=== PATIENT | female | born 1995 | race Two or more races ===

== ENCOUNTER 2021-01-02 09:05 | Outpatient (REF) | payer OTHER, SELFPAY ==
[2021-01-02 11:18] LABS: MANUAL DIFF FLAG NO
[2021-01-02 11:28] LABS: Basophils Percent Auto 0.5 % (0-2); Eosinophils Absolute Auto 0.1 X10*3/uL (0.0-0.4); Hematocrit 42.4 % (37-47); Hemoglobin 13.9 g/dl (12.0-16.0); Imm Gran Abs Auto 0.01 X10*3/uL (0.00-0.03); Imm Gran Pct Auto 0.2 % (0.0-0.4); Lymphocytes Absolute Auto 2.1 X10*3/uL (1.2-4.9); Lymphocytes Percent Auto 36.1 % (20-40); Mean Corpuscular HGB Conc 32.8 g/dl (31.0-35.0); Mean Corpuscular Hemoglobin 29.1 pg (27.0-33.0); Mean Corpuscular Volume 88.9 fL (80-98); Mean Platelet Volume 9.9 fL (9.4-12.3); Monocytes Absolute Auto 0.3 X10*3/uL (0.1-1.2); Monocytes Percent Auto 5.8 % (2-11); Neutrophils Absolute Auto 3.3 X10*3/uL (2.0-8.3); Neutrophils Percent Auto 56.4 % (45-73); Platelet Count 306 X10*3/uL (160-400); Red Blood Count 4.77 X10*6/uL (4.20-5.50); Red Cell Distribution Width 12.2 % (11.0-16.0); White Blood Count 5.9 X10*3/uL (4.8-10.8)
[2021-01-02 12:06] LABS: Alanine Aminotransferase 16 U/L (0-31); Anion Gap 15 (12-20); Aspartate Amino Transferase 17 U/L (5-31); Blood Urea Nitrogen 15 mg/dL (9-16); Calcium 9.3 mg/dL (8.4-10.2); Carbon Dioxide 25 mmol/L (22-29); Chloride 105 mmol/L (96-108); Cholesterol 149 mg/dL; Estimated Glomerular Filt Rate > 60; Glucose Fasting 101 mg/dL (60-99); HDL Cholesterol 45 mg/dL; LDL Cholesterol Calculated 89 mg/dl; Potassium 4.3 mmol/L (3.3-5.1); Sodium 141 mmol/L (135-145); Triglycerides 79 mg/dL
[2021-01-02 12:07] LABS: TSH reflex Free T4 1.63 uIU/mL (0.32-4.0); Vitamin D 25-OH Total 8.5 ng/mL (>30)
== END 2021-01-02 09:06 | disposition home or self-care (01) ==
LOC: HO.HMGCLDS 09:05
PROVIDERS: PCP Internal Medicine; Visit Provider Internal Medicine
DX: Z00.00 Encounter for general adult medical examination without abnormal findings (principal); Z13.31 Encounter for screening for depression; E66.9 Obesity, unspecified; I10 Essential (primary) hypertension
CPT/HCPCS: 36415; 80048; 80061; 82306; 84443; 84450; 84460; 85025

== ENCOUNTER 2021-03-18 19:07 | Emergency (ER) | payer OTHER, SELFPAY ==
--- NOTE | ~2021-03-18 | US_ITS ---
EXAMINATION: US PELVIS CLINICAL INFORMATION: Right lower quadrant pain COMPARISON: None TECHNIQUE: Ultrasound of the pelvis is performed using both transabdominal and transvaginal transducers along with Doppler. Transvaginal imaging is performed due to inadequate visualization transabdominally. FINDINGS: Uterus: The uterus is anteverted and anteflexed measuring 8.7 cm in length, 3.4 cm in AP and 4.4 cm in transverse dimension. Endometrial thickness measures 0.4 cm. No focal lesion is seen. Adnexa: The right ovary measures 2.8 x 1.7 x 2.2 cm and volume 5.5 mL. There are multiple cysts. The largest cyst measures 1.3 x 1.4 x 1.2 cm. There is normal Doppler arterial and venous flow seen to right ovary. The left ovary measures 2.2 x 1.7 x 1.9 cm and volume 3.7 mL. There are multiple anechoic cysts. There is normal arterial and venous flow seen to left ovary on Doppler exam. There is no free fluid in the cul-de-sac. US/US pelvic ovarian doppler IMPRESSION: Unremarkable uterus. Multiple bilateral renal cysts. Normal Doppler flow seen to both ovaries. There is no free fluid in the cul-de-sac
--- NOTE | ~2021-03-18 | US_ITS ---
EXAMINATION: US PELVIS CLINICAL INFORMATION: Right lower quadrant pain COMPARISON: None TECHNIQUE: Ultrasound of the pelvis is performed using both transabdominal and transvaginal transducers along with Doppler. Transvaginal imaging is performed due to inadequate visualization transabdominally. FINDINGS: Uterus: The uterus is anteverted and anteflexed measuring 8.7 cm in length, 3.4 cm in AP and 4.4 cm in transverse dimension. Endometrial thickness measures 0.4 cm. No focal lesion is seen. Adnexa: The right ovary measures 2.8 x 1.7 x 2.2 cm and volume 5.5 mL. There are multiple cysts. The largest cyst measures 1.3 x 1.4 x 1.2 cm. There is normal Doppler arterial and venous flow seen to right ovary. The left ovary measures 2.2 x 1.7 x 1.9 cm and volume 3.7 mL. There are multiple anechoic cysts. There is normal arterial and venous flow seen to left ovary on Doppler exam. There is no free fluid in the cul-de-sac. US/US transvaginal IMPRESSION: Unremarkable uterus. Multiple bilateral renal cysts. Normal Doppler flow seen to both ovaries. There is no free fluid in the cul-de-sac
--- NOTE | ~2021-03-18 | CT_ITS ---
EXAMINATION: CT ABDOMEN AND PELVIS WITH CONTRAST CLINICAL INFORMATION: Abdominal pain COMPARISON: None TECHNIQUE: Multidetector volumetric images were obtained from the superior aspect of the liver through the pubic symphysis following administration 85 mL of Omnipaque 350 intravenous contrast. Sagittal and coronal reformatted images were obtained on the technologist's workstation. Oral contrast: No This CT examination was performed using dose optimization techniques as appropriate, variously including the following: *Automated exposure control *Adjustment of mA and/or kV according to patient size (this includes techniques or standardized protocols for targeted exams where dose is matched to indication/reason for exam; i.e. extremities or head) *Use of iterative reconstruction technique DLP: 895 mGy-cm FINDINGS: LUNG BASES: The visualized lung bases are unremarkable. LIVER, GALLBLADDER, AND BILIARY TREE: The liver is normal in size, shape, and attenuation. No focal hepatic lesion or biliary ductal dilatation is present. The gallbladder is unremarkable with no evidence of radiopaque gallstones, gallbladder wall thickening, or obvious pericholecystic inflammatory changes. PANCREAS: Unremarkable. SPLEEN: Unremarkable. ADRENAL GLANDS: Unremarkable. KIDNEYS AND URETERS: The kidneys are normal in size, shape, and attenuation. No hydronephrosis, hydroureter, or obstructing calculi seen. No perinephric stranding. BLADDER: Unremarkable. GASTROINTESTINAL TRACT: The small and large bowel are unremarkable. The appendix is unremarkable. No free air is seen. ABDOMINAL WALL: No significant hernia is appreciated. LYMPH NODES: Normal. VASCULAR: Unremarkable. PELVIC VISCERA: Unremarkable. Trace pelvic free fluid is noted. OSSEOUS STRUCTURES: Unremarkable. CT/CT abdomen pelvis w con IMPRESSION: Trace nonspecific pelvic free fluid which may be physiologic. No additional acute findings identified.
[2021-03-18 19:27] VITALS: BP 142/80; PULSE 77; RESP 16; TEMP 37; O2SAT 99; BMI 38.9
[2021-03-18 21:23] LABS: MANUAL DIFF FLAG NO
[2021-03-18 21:24] LABS: Basophils Percent Auto 0.3 % (0-2); Eosinophils Percent Auto 0.2 % (0-4); Hematocrit 41.3 % (37-47); Hemoglobin 13.9 g/dl (12.0-16.0); Imm Gran Abs Auto 0.01 X10*3/uL (0.00-0.03); Imm Gran Pct Auto 0.1 % (0.0-0.4); Lymphocytes Absolute Auto 2.4 X10*3/uL (1.2-4.9); Lymphocytes Percent Auto 27.8 % (20-40); Mean Corpuscular HGB Conc 33.7 g/dl (31.0-35.0); Mean Corpuscular Hemoglobin 29.2 pg (27.0-33.0); Mean Corpuscular Volume 86.8 fL (80-98); Mean Platelet Volume 9.6 fL (9.4-12.3); Monocytes Absolute Auto 0.4 X10*3/uL (0.1-1.2); Monocytes Percent Auto 4.5 % (2-11); Neutrophils Absolute Auto 5.8 X10*3/uL (2.0-8.3); Neutrophils Percent Auto 67.1 % (45-73); Platelet Count 266 X10*3/uL (160-400); Red Blood Count 4.76 X10*6/uL (4.20-5.50); Red Cell Distribution Width 12.1 % (11.0-16.0); White Blood Count 8.6 X10*3/uL (4.8-10.8)
[2021-03-18 21:28] LABS: Glucose Urine UA NEG (NEG); Leukocyte Esterase Urine NEG (NEG); Nitrite Urine NEG (NEG); Specific Gravity - Urine >= 1.030 (1.005-1.025); Urine Blood NEG (NEG); Urine Ketones 5 MG/DL (NEG); Urine Protein NEG (NEG-TRACE)
[2021-03-18 21:30] LABS: Appearance Urine CLEAR; Color Urine YELLOW
[2021-03-18 21:32] LABS: UPreg QC Valid YES; Urine Pregnancy NEGATIVE (NEGATIVE)
[2021-03-18 21:48] LABS: Alanine Aminotransferase 15 U/L (0-31); Albumin Level 4.4 g/dL (3.5-5.0); Alkaline Phosphatase 75 U/L (39-117); Anion Gap 15 (12-20); Aspartate Amino Transferase 19 U/L (5-31); Bilirubin Total 0.5 mg/dL (0.0-1.0); Blood Urea Nitrogen 15 mg/dL (9-16); Calcium 9.5 mg/dL (8.4-10.2); Carbon Dioxide 23 mmol/L (22-29); Chloride 108 mmol/L (96-108); Creatinine Clr Calc Pharmacy 116.3; Estimated Glomerular Filt Rate > 60; Glucose Random 82 mg/dL (60-115); Potassium 3.8 mmol/L (3.3-5.1); Sodium 142 mmol/L (135-145); Total Protein 7.4 g/dL (6.5-8.0)
[2021-03-19 01:34] VITALS: BP 123/80; PULSE 62; RESP 18; TEMP 36.7; O2SAT 100
[2021-03-19] MEDS: iohexoL 350 MG/ML 100 ML INFUS..BTL 85 ML IV (03:16)
--- NOTE | 2021-03-19 04:54 | ED.ABDPAIN ---
HPI - Abdominal Pain General Chief Complaint: Abdominal Pain Stated Complaint: Vomiting Time Seen by Provider: 03/19/21 02:45 History of Present Illness HPI narrative: 25-year-old female presents today with having abdominal pain. His diffusing moved to the right lower quadrant. Patient denies any fever chills. No pain on urination. No coughing or congestion or upper respiratory symptoms. Patient is from home. The pain is fairly sudden in onset. No vaginal discharge. Associated with nausea no vomiting. No history of abdominal surgery. Positive flatus. No travel history, no recent antibiotics. Related Data Home Medications Medication Instructions Recorded Confirmed ibuprofen 800 mg tablet 800 mg PO TID 01/01/21 Previous Rx's Medication Instructions Recorded cholecalciferol (vitamin D3) 1,250 1,250 mcg PO QWEEK 90 Days #13 cap 01/02/21 mcg (50,000 unit) capsule Allergies Allergy/AdvReac Type Severity Reaction Status Date / Time shellfish derived Allergy Intermediate HIVES Verified 01/01/21 08:20 [SHELLFISH DERIVED] SWOLLEN FACE [place] And Derivatives Allergy Unknown hives Verified 01/01/21 08:29 [CITRUS] SEAFOOD Allergy Unknown ANGIOEDEMA Uncoded 06/22/20 18:03 Review of Systems Review of Systems Constitutional: No Weight loss, No Fever, No Chills, No Night Sweats, No Fatigue, No Malaise ENT/Mouth: No Hearing loss, No Ear Pain, No Nasal Congestion, No Sinus Pain, No Hoarseness, No sore throat, No Rhinorrhea, No Swallowing Difficulty Eyes: No Eye Pain, No Swelling, No Redness, No Foreign Body, No Discharge, No Vision Changes Cardiovascular: No Chest Pain, No SOB, No Dyspnea on Exertion, No Orthopnea, No Edema, No Palpitations Respiratory: No Cough, No Sputum, No Wheezing, No Smoke Exposure, No Dyspnea Gastrointestinal: Positive Nausea, No Vomiting, No Diarrhea, No Constipation, positive abdominal Pain, No Hematochezia, No Melena Genitourinary: no irregular bleeding, No Dysuria, No Urinary Frequency, No Hematuria, No Urinary Incontinence, No Urgency, No Flank Pain, No Urinary Flow Changes, No Hesitancy Musculoskeletal: No joint pain, No Myalgias, No Joint Swelling Skin: No Skin Lesions, No rash Neuro: No Weakness, No Numbness, No Paresthesias, No Loss of Consciousness, No Dizziness, No Headache Psych: No Anxiety/Panic, No Depression, No SI/HI/AH/VH, No Social Issues, Heme/Lymph: No Bruising, No Bleeding,No Lymphadenopathy Endocrine: No Polyuria, No Polydipsia, No Temperature Intolerance Physical Exam Vital Signs: Vital Signs: Last Vital Signs Temp 98.0 F 03/19/21 01:34 Pulse 62 03/19/21 01:34 Resp 18 03/19/21 01:34 BP 123/80 03/19/21 01:34 Pulse Ox 100 03/19/21 01:34 Body Mass Index 38.9 Appearance: Alert. Oriented X3. No acute distress. Eyes: Pupils equal, round and reactive to light. ENT: Pharynx normal. Neck: Normal inspection. Neck supple. No lymph nodes noted. No crepitus CVS: Normal heart rate and rhythm. Pulses normal. Normal S1 and S2 Respiratory: No respiratory distress. Breath sounds normal. No Wheezing. No rales Abdomen: Soft and nontender. No rigidity. No distention. good BS x4 Skin: Skin warm and dry. Normal skin color. Normal skin turgor. Extremities: No lower extremity edema. Neurovascular intact to all extremities. No Lacerations. No Rash Neuro: Oriented X 3. No motor deficit. No sensory deficit. Moving all extermities. No slurred speech MDM - Abdominal Pain Medical Records Medical records narrative: Patient's white count was normal. Urine showed no evidence of infection. test was negative. Unlikely to be ectopic. Patient's electrolytes were normal. CT scan of the abdomen show no evidence of obstruction, abscess, perforation. Will discharge patient home. Close follow-up on an outpatient basis. Lab Data Result diagrams: 03/18/21 21:12 03/18/21 21:12 Labs: Lab Results 03/18/21 03/18/21 03/18/21 Range/Units 21:12 21:12 21:12 WBC 8.6 (4.8-10.8) X10*3/uL RBC 4.76 (4.20-5.50) X10*6/uL Hgb 13.9 (12.0-16.0) g/dl Hct 41.3 (37-47) % MCV 86.8 (80-98) fL MCH 29.2 (27.0-33.0) pg MCHC 33.7 (31.0-35.0) g/dl RDW 12.1 (11.0-16.0) % Plt Count 266 (160-400) X10*3/uL MPV 9.6 (9.4-12.3) fL Immature Gran % (Auto) 0.1 (0.0-0.4) % Neut % (Auto) 67.1 (45-73) % Lymph % (Auto) 27.8 (20-40) % [place] % (Auto) 4.5 (2-11) % Eos % (Auto) 0.2 (0-4) % Baso % (Auto) 0.3 (0-2) % Lymph # (Auto) 2.4 (1.2-4.9) X10*3/uL [place] # (Auto) 0.4 (0.1-1.2) X10*3/uL Eos # (Auto) 0.0 (0.0-0.4) X10*3/uL Baso # (Auto) 0.0 (0.0-0.2) X10*3/uL Abs Immat Gran (auto) 0.01 (0.00-0.03) X10*3/uL Absolute Neuts (auto) 5.8 (2.0-8.3) X10*3/uL Absolute Nucleated RBC 0.000 (0.0-0.012) X10*3/uL Nucleated RBC % (auto) 0.0 (0.0-0.2) /100WBC Sodium 142 (135-145) mmol/L Potassium 3.8 (3.3-5.1) mmol/L Chloride 108 (96-108) mmol/L Carbon Dioxide 23 (22-29) mmol/L Anion Gap 15 (12-20) BUN 15 (9-16) mg/dL Creatinine 0.84 (0.5-1.4) mg/dL Estim Creat Clear Calc 116.3 Estimated GFR > 60 Random Glucose 82 (60-115) mg/dL Calcium 9.5 (8.4-10.2) mg/dL Total Bilirubin 0.5 (0.0-1.0) mg/dL AST 19 (5-31) U/L ALT 15 (0-31) U/L Alkaline Phosphatase 75 (39-117) U/L Total Protein 7.4 (6.5-8.0) g/dL Albumin 4.4 (3.5-5.0) g/dL Urine Color YELLOW Urine Appearance CLEAR Urine pH 6.0 (5.0-8.0) Ur Specific [place] >= 1.030 H (1.005-1.025) Urine Protein NEG (NEG-TRACE) MG/DL Urine Glucose (UA) NEG (NEG) MG/DL Urine Ketones 5 (NEG) MG/DL Urine Blood NEG (NEG) Urine Nitrite NEG (NEG) Ur Leukocyte Esterase NEG (NEG) Urine Test (NEGATIVE) 03/18/21 Range/Units 21:12 WBC (4.8-10.8) X10*3/uL RBC (4.20-5.50) X10*6/uL Hgb (12.0-16.0) g/dl Hct (37-47) % MCV (80-98) fL MCH (27.0-33.0) pg MCHC (31.0-35.0) g/dl RDW (11.0-16.0) % Plt Count (160-400) X10*3/uL MPV (9.4-12.3) fL Immature Gran % (Auto) (0.0-0.4) % Neut % (Auto) (45-73) % Lymph % (Auto) (20-40) % [place] % (Auto) (2-11) % Eos % (Auto) (0-4) % Baso % (Auto) (0-2) % Lymph # (Auto) (1.2-4.9) X10*3/uL [place] # (Auto) (0.1-1.2) X10*3/uL Eos # (Auto) (0.0-0.4) X10*3/uL Baso # (Auto) (0.0-0.2) X10*3/uL Abs Immat Gran (auto) (0.00-0.03) X10*3/uL Absolute Neuts (auto) (2.0-8.3) X10*3/uL Absolute Nucleated RBC (0.0-0.012) X10*3/uL Nucleated RBC % (auto) (0.0-0.2) /100WBC Sodium (135-145) mmol/L Potassium (3.3-5.1) mmol/L Chloride (96-108) mmol/L Carbon Dioxide (22-29) mmol/L Anion Gap (12-20) BUN (9-16) mg/dL Creatinine (0.5-1.4) mg/dL Estim Creat Clear Calc Estimated GFR Random Glucose (60-115) mg/dL Calcium (8.4-10.2) mg/dL Total Bilirubin (0.0-1.0) mg/dL AST (5-31) U/L ALT (0-31) U/L Alkaline Phosphatase (39-117) U/L Total Protein (6.5-8.0) g/dL Albumin (3.5-5.0) g/dL Urine Color Urine Appearance Urine pH (5.0-8.0) Ur Specific [place] (1.005-1.025) Urine Protein (NEG-TRACE) MG/DL Urine Glucose (UA) (NEG) MG/DL Urine Ketones (NEG) MG/DL Urine Blood (NEG) Urine Nitrite (NEG) Ur Leukocyte Esterase (NEG) Urine Test NEGATIVE (NEGATIVE) Discharge Plan Discharge Clinical Impression: Abdominal pain Patient Disposition: Home, Self-Care Instructions: Abdominal Pain (ED) Prescriptions: No Action cholecalciferol (vitamin D3) 1,250 mcg (50,000 unit) capsule 1,250 mcg PO QWEEK 90 Days Qty: 13 RF: 0 ibuprofen 800 mg tablet 800 mg PO TID RF: 0 Referrals: Physician,Unknown [Primary Care Provider] - 2 days PMF[facility] Past Medical History Medical History Blurred vision, bilateral Lumbago with sciatica, left side Obesity (BMI 30-39.9) Positive depression screening Family History Family History Father History of renal dialysis Chronic kidney disease (CKD) Social History Social History Alcohol intake: never Substance Use Type: Marijuana Advance Directives: No Patient : No Sexual orientation: Lesbian/Lomas/Homosexual
[2021-03-19 06:00] VITALS: BP 123/80; PULSE 66; RESP 18; TEMP 36.8; O2SAT 100
[2021-03-19] MEDS: Ketorolac Tromethamine 15 MG/ML VIAL IVPUSH (07:28)
[2021-03-19 07:29] VITALS: BP 123/72; PULSE 52; RESP 16; O2SAT 98
--- NOTE | 2021-03-19 07:40 | PC.NURSE ---
DECLINED NARCOTIC, DOESN'T HAVE A RIDE
[2021-03-19 07:58] VITALS: BP 123/72; PULSE 55; RESP 16; TEMP 36.8; O2SAT 99
== END 2021-03-19 10:21 | disposition home or self-care (01) ==
PROVIDERS: Emergency Provider Emergency Medicine Emergency Medical Services
DX: R10.9 Unspecified abdominal pain (principal); R11.0 Nausea
CPT/HCPCS: 36415; 74177; 76830; 80053; 81003; 81025; 85025; 93975; 96374; 96375; 99284; J1885; Q9967

== ENCOUNTER 2021-03-23 12:46 | Outpatient (REF) | payer OTHER, SELFPAY ==
[2021-03-23 14:00] LABS: MANUAL DIFF FLAG NO
[2021-03-23 14:06] LABS: Basophils Percent Auto 0.7 % (0-2); Eosinophils Absolute Auto 0.1 X10*3/uL (0.0-0.4); Eosinophils Percent Auto 0.9 % (0-4); Hematocrit 41.8 % (37-47); Hemoglobin 13.8 g/dl (12.0-16.0); Imm Gran Abs Auto 0.01 X10*3/uL (0.00-0.03); Imm Gran Pct Auto 0.2 % (0.0-0.4); Lymphocytes Absolute Auto 1.8 X10*3/uL (1.2-4.9); Lymphocytes Percent Auto 32.1 % (20-40); Mean Corpuscular Hemoglobin 28.8 pg (27.0-33.0); Mean Corpuscular Volume 87.1 fL (80-98); Mean Platelet Volume 10.4 fL (9.4-12.3); Monocytes Absolute Auto 0.3 X10*3/uL (0.1-1.2); Monocytes Percent Auto 5.8 % (2-11); Neutrophils Absolute Auto 3.4 X10*3/uL (2.0-8.3); Neutrophils Percent Auto 60.3 % (45-73); Platelet Count 280 X10*3/uL (160-400); Red Cell Distribution Width 12.1 % (11.0-16.0); White Blood Count 5.7 X10*3/uL (4.8-10.8)
[2021-03-23 14:32] LABS: Amylase 55 U/L (28-100); Lipase 10 U/L (8-78)
== END 2021-03-23 12:47 | disposition home or self-care (01) ==
LOC: HO.HMGCLDS 12:46
PROVIDERS: PCP Internal Medicine; Visit Provider Internal Medicine
DX: R10.13 Epigastric pain (principal); K92.1 Melena
CPT/HCPCS: 36415; 82150; 83690; 85025

== ENCOUNTER 2021-04-02 08:58 | Outpatient (REF) | payer OTHER, SELFPAY ==
[2021-04-02 17:51] LABS: CT PCR DETECTED (Not Detect.); NG PCR NOT DETECTED (Not Detect.)
[2021-04-03 09:27] LABS: BV Int Neg Control Negative (Negative); BV Int Pos Control Positive (Positive)
== END 2021-04-02 08:59 | disposition home or self-care (01) ==
LOC: HO.LAB 08:58
PROVIDERS: Visit Provider Advanced Practice Midwife
DX: Z01.419 Encounter for gynecological examination (general) (routine) without abnormal findings (principal); Z11.3 Encounter for screening for infections with a predominantly sexual mode of transmission; Z20.2 Contact with and (suspected) exposure to infections with a predominantly sexual mode of transmission
CPT/HCPCS: 87480; 87491; 87510; 87591; 87660; 88142

== ENCOUNTER → 2021-04-17 08:26 | Outpatient (BNVA) | payer OTHER, SELFPAY | PROVIDERS: PCP Internal Medicine; Referring Provider Internal Medicine; Visit Provider Physician Assistant ==

== ENCOUNTER 2021-04-17 09:19 | Outpatient (REF) | payer OTHER, SELFPAY ==
[2021-04-17 11:22] LABS: Alanine Aminotransferase 15 U/L (0-31); Albumin Level 4.1 g/dL (3.5-5.0); Alkaline Phosphatase 74 U/L (39-117); Aspartate Amino Transferase 18 U/L (5-31); Bilirubin Direct 0.2 mg/dL (0.0-0.5); Bilirubin Total 0.6 mg/dL (0.0-1.0); C Reactive Protein 0.32 mg/dL (< or = 0.50)
[2021-04-17 11:36] LABS: HBS Num1 10.82 mIU/mL (0-7.99); ~HepC Num1 0.14 S/CO (0.00-0.79); ~Hepatitis C Antibody Nonreactive (Nonreactive)
[2021-04-17 11:37] LABS: HBc Num1 0.11 S/CO (0.00-0.79); HBsAGNum1 0.17 S/CO (0.00-0.99); Hepatitis B Core Antibody Nonreactive (Nonreactive); Hepatitis B Surface Antigen Negative (Negative)
[2021-04-17 11:49] LABS: Erythrocyte Sedimentation Rate 9 MM/HR (0-20)
[2021-04-17 12:34] LABS: HBS Num2 11.22 mIU/mL (0-7.99); HBS Num3 11.33 mIU/mL (0-7.99); ~Hepatitis B Surface Antibody GRAYZONE (Nonreactive)
[2021-04-17 14:37] LABS: CDiff Gene PCR NEGATIVE (Negative); Leukocytes Stool Qualitative NEGATIVE (NEGATIVE)
[2021-04-18 04:50] LABS: Hepatitis A Antibody IgM 0.26 Index (0-0.79); ~Hepatitis A Antibody IgM Nonreactive (Nonreactive)
[2021-04-19 12:52] LABS: Transglutaminase IgA 1 U/mL
[2021-04-21 21:27] LABS: Calprotectin, Fecal <5 mcg/g
[2021-04-24 12:41] LABS: Endomysial IgA Antibody Negative (Negative)
== END 2021-04-17 09:20 | disposition home or self-care (01) ==
LOC: HO.WFDLDS 09:19
PROVIDERS: Visit Provider Physician Assistant
DX: R10.11 Right upper quadrant pain (principal); R12 Heartburn; R19.7 Diarrhea, unspecified; R79.89 Other specified abnormal findings of blood chemistry
CPT/HCPCS: 36415; 80076; 83516; 83993; 85652; 86140; 86255; 86256; 86704; 86706; 86709; 86803; 87045; 87046; 87177; 87209; 87329; 87340; 87493; 89055; 99202

== ENCOUNTER 2021-04-19 18:09 | Emergency (ER) | payer OTHER, SELFPAY ==
--- NOTE | ~2021-04-19 | US_ITS ---
EXAMINATION: US ABDOMEN COMPLETE CLINICAL INFORMATION: Upper abdominal pain. COMPARISON: Previous CT of the abdomen and pelvis March 2021 TECHNIQUE: Real-time imaging of the abdominal viscera. FINDINGS: PANCREAS: The head and body the pancreas are normal. The tail was not well seen due to bowel gas. ABDOMINAL AORTA: The proximal, mid, and distal segments are normal in caliber. INFERIOR VENA CAVA: Visualized portions are normal. LIVER: Normal. The liver is normal in size. The liver contour is normal. Parenchymal echogenicity is normal. No focal hepatic lesion. There is no intrahepatic biliary duct dilatation seen. GALLBLADDER: Normal. The gallbladder is physiologically distended without evidence of stones, sludge, polyps, wall thickening or pericholecystic fluid. COMMON BILE DUCT: Normal in caliber measuring 0.3 cm in diameter. RIGHT KIDNEY: Normal. No hydronephrosis. No renal calculi or focal parenchymal lesions. The kidney measures 9.5 cm in maximum dimension. LEFT KIDNEY: Normal. No hydronephrosis. No renal calculi or focal parenchymal lesions. The kidney measures 10.6 cm in maximum dimension. SPLEEN: Normal. The spleen measures 10.2 cm in maximum dimension. FREE FLUID: None. US/US abdomen complete IMPRESSION: Limited visualization of the tail the pancreas otherwise unremarkable exam.
[2021-04-19 18:12] VITALS: BP 152/82; PULSE 90; RESP 16; TEMP 36.8; O2SAT 99; BMI 37.2
[2021-04-19 19:38] LABS: MANUAL DIFF FLAG NO
[2021-04-19 19:40] LABS: Basophils Percent Auto 0.4 % (0-2); Eosinophils Absolute Auto 0.1 X10*3/uL (0.0-0.4); Eosinophils Percent Auto 0.8 % (0-4); Hematocrit 40.4 % (37-47); Hemoglobin 13.5 g/dl (12.0-16.0); Imm Gran Abs Auto 0.02 X10*3/uL (0.00-0.03); Imm Gran Pct Auto 0.3 % (0.0-0.4); Lymphocytes Percent Auto 27.6 % (20-40); Mean Corpuscular HGB Conc 33.4 g/dl (31.0-35.0); Mean Corpuscular Volume 86.9 fL (80-98); Mean Platelet Volume 9.6 fL (9.4-12.3); Monocytes Absolute Auto 0.4 X10*3/uL (0.1-1.2); Monocytes Percent Auto 5.6 % (2-11); Neutrophils Absolute Auto 4.7 X10*3/uL (2.0-8.3); Neutrophils Percent Auto 65.3 % (45-73); Platelet Count 261 X10*3/uL (160-400); Red Blood Count 4.65 X10*6/uL (4.20-5.50); Red Cell Distribution Width 12.2 % (11.0-16.0); White Blood Count 7.1 X10*3/uL (4.8-10.8)
[2021-04-19 20:06] LABS: Anion Gap 10 (12-20); Blood Urea Nitrogen 12 mg/dL (9-16); Calcium 9.6 mg/dL (8.4-10.2); Carbon Dioxide 28 mmol/L (22-29); Chloride 107 mmol/L (96-108); Estimated Glomerular Filt Rate > 60; Glucose Random 87 mg/dL (60-115); Potassium 4.1 mmol/L (3.3-5.1); Sodium 141 mmol/L (135-145)
[2021-04-19 20:14] LABS: UPreg QC Valid YES; Urine Pregnancy NEGATIVE (NEGATIVE)
--- NOTE | 2021-04-19 21:03 | ED_ITS ---
HPI - Abdominal Pain General Chief Complaint: Abdominal Pain Stated Complaint: Abdominal pain Source: patient Mode of arrival: ambulatory Limitations: no limitations History of Present Illness HPI narrative: 25-year-old female presents with several months of chronic abdominal pain. Has been worked up by multiple facilities and has a gastroenterology appointment in the next 2 weeks. Patient states the pain is unbearable, that she has black tarry stools, and was evaluated 2 days ago for similar circumstances in [place]. She has not received the results yet of her stool study and is concerned about bleeding. She does report intermittent fevers and chills, and states that taking a Tylenol and Motrin increases the pain in her abdomen. She did not describe any difference in pain before and after eating, and does not report radiation to any other parts of her body. She did not report weight loss. She denies chest pain and pressure, palpitations, shortness of breath, shortness of breath on exertion, abdominal distention, nausea, vomiting, diarrhea, constipation, dysuria, hematuria, and edema. MD elicited complaint: abdominal pain Onset (ago): month(s) Pain Consistency: constant Location: epigastric, LUQ and RUQ Severity: moderate Pain scale (0-10): 9 Quality: cramping and aching Relieving factors: nothing Context: history of similar episodes Associated symptoms: fever and chills Related Data Patient : No Home Medications Medication Instructions Recorded Confirmed famotidine 10 mg tablet mg PO 03/23/21 04/02/21 fluoxetine 10 mg capsule 10 mg PO DAILY 03/23/21 04/02/21 prazosin 2 mg capsule 2 mg PO BID 03/23/21 04/02/21 Previous Rx's Medication Instructions Recorded loperamide 2 mg capsule 2 mg PO Q6H PRN #20 cap 04/17/21 dicyclomine 20 mg PO TID PRN #30 tab 04/20/21 Allergies Allergy/AdvReac Type Severity Reaction Status Date / Time shellfish derived Allergy Intermediate HIVES Verified 04/02/21 09:20 [SHELLFISH DERIVED] SWOLLEN FACE [place] And Derivatives Allergy Unknown hives Verified 04/02/21 09:20 [CITRUS] SEAFOOD Allergy Unknown ANGIOEDEMA Uncoded 06/22/20 18:03 Review of Systems Review of Systems Constitutional: No Weight loss, No Fever, No Chills, No Night Sweats, No Fatigue, No Malaise ENT/Mouth: No Hearing loss, No Ear Pain, No Nasal Congestion, No Sinus Pain, No Hoarseness, No sore throat, No Rhinorrhea, No Swallowing Difficulty Eyes: No Eye Pain, No Swelling, No Redness, No Foreign Body, No Discharge, No Vision Changes Cardiovascular: No Chest Pain, No SOB, No Dyspnea on Exertion, No Orthopnea, No Edema, No Palpitations Respiratory: No Cough, No Sputum, No Wheezing, No Smoke Exposure, No Dyspnea Gastrointestinal: No Nausea, no Vomiting, no Diarrhea, positive abdominal Pain, No Hematochezia, positive Melena Genitourinary: no irregular bleeding, No Dysuria, No Urinary Frequency, No Hematuria, No Urinary Incontinence, No Urgency, No Flank Pain, No Urinary Flow Changes, No Hesitancy Musculoskeletal: No joint pain, No Myalgias, No Joint Swelling Skin: No Skin Lesions, No rash Neuro: No Weakness, No Numbness, No Paresthesias, No Loss of Consciousness, No Dizziness, No Headache Psych: No Anxiety/Panic, No Depression, No SI/HI/AH/VH, No Social Issues Heme/Lymph: No Bruising, No Bleeding,No Lymphadenopathy Endocrine: No Polyuria, No Polydipsia, No Temperature Intolerance Yes all other systems are reviewed and are negative Physical Exam Vital Signs: Vital Signs: Last Vital Signs Temp 98.6 F 04/19/21 22:00 Pulse 65 04/19/21 22:00 Resp 22 H 04/19/21 22:00 BP 128/82 04/19/21 22:00 Pulse Ox 99 04/19/21 22:00 Body Mass Index 37.2 Appearance: Alert. Oriented X3. Mild distress. Eyes: Pupils equal, round and reactive to light. ENT: Pharynx normal. Neck: Normal inspection. Neck supple. CVS: Normal heart rate and rhythm. Pulses normal. Respiratory: No respiratory distress. Breath sounds normal. Abdomen: Soft and tender to right upper epigastric and left upper quadrants of the abdomen. Skin: Skin warm and dry. Normal skin color. Normal skin turgor. Extremities: No lower extremity edema. Neuro: No motor deficit. No sensory deficit. Course Course Course Narrative: 25-year-old female with chronic abdominal pain presents with right upper epigastric and left upper quadrant abdominal pain. She was evaluated by multiple providers for this pain, last being 2 days ago with a completed stool study and rectal exam, and has an appointment in 2 weeks with Gastroenterology. Patient does have some tenderness to the right upper quadrant on deep palpation, will order abdominal ultrasound. She did have a CT scan of the abdomen and pelvis with contrast approximately week ago with no findings. Ultrasound negative for acute findings. Will give patient dicyclomine for abdominal cramping and pain. A review of records indicated that her last stool study approximately 2 days ago was negative for heme, she reported melena at that time as well. I do not feel repeating these exams would be beneficial. Patient was advised to follow up with gastroenterology as scheduled. Will give a prescription for dicyclomine for abdominal cramping and pain. Patient is nontoxic, afebrile, and appears to be in no acute distress. Patient verbalized understanding of and agrees to plan of care discharge home. MDM - Abdominal Pain Differential Diagnosis Differential diagnosis: Likely abdominal pain, gastroenteritis, gastritis, pancreatitis and peptic ulcer disease Medical Records Attestation: I reviewed the patient's medical records. Lab Data Attestation: I reviewed the patient's lab results. Result diagrams: 04/19/21 19:32 04/19/21 19:32 Labs: Lab Results 04/19/21 04/19/21 04/19/21 Range/Units 19:32 19:32 19:57 WBC 7.1 (4.8-10.8) X10*3/uL RBC 4.65 (4.20-5.50) X10*6/uL Hgb 13.5 (12.0-16.0) g/dl Hct 40.4 (37-47) % MCV 86.9 (80-98) fL MCH 29.0 (27.0-33.0) pg MCHC 33.4 (31.0-35.0) g/dl RDW 12.2 (11.0-16.0) % Plt Count 261 (160-400) X10*3/uL MPV 9.6 (9.4-12.3) fL Immature Gran % (Auto) 0.3 (0.0-0.4) % Neut % (Auto) 65.3 (45-73) % Lymph % (Auto) 27.6 (20-40) % [place] % (Auto) 5.6 (2-11) % Eos % (Auto) 0.8 (0-4) % Baso % (Auto) 0.4 (0-2) % Lymph # (Auto) 2.0 (1.2-4.9) X10*3/uL [place] # (Auto) 0.4 (0.1-1.2) X10*3/uL Eos # (Auto) 0.1 (0.0-0.4) X10*3/uL Baso # (Auto) 0.0 (0.0-0.2) X10*3/uL Abs Immat Gran (auto) 0.02 (0.00-0.03) X10*3/uL Absolute Neuts (auto) 4.7 (2.0-8.3) X10*3/uL Absolute Nucleated RBC 0.000 (0.0-0.012) X10*3/uL Nucleated RBC % (auto) 0.0 (0.0-0.2) /100WBC Sodium 141 (135-145) mmol/L Potassium 4.1 (3.3-5.1) mmol/L Chloride 107 (96-108) mmol/L Carbon Dioxide 28 (22-29) mmol/L Anion Gap 10 L (12-20) BUN 12 (9-16) mg/dL Creatinine 0.85 (0.5-1.4) mg/dL Estim Creat Clear Calc 112.0 Estimated GFR > 60 Random Glucose 87 (60-115) mg/dL Calcium 9.6 (8.4-10.2) mg/dL Urine Test NEGATIVE (NEGATIVE) Imaging Data Abdominal ultrasound: Attestation: I personally reviewed and interpreted this imaging study as follows: Radiologist's impression: EXAMINATION: US ABDOMEN COMPLETE CLINICAL INFORMATION: Upper abdominal pain. COMPARISON: Previous CT of the abdomen and pelvis March 2021 TECHNIQUE: Real-time imaging of the abdominal viscera. FINDINGS: PANCREAS: The head and body the pancreas are normal. The tail was not well seen due to bowel gas. ABDOMINAL AORTA: The proximal, mid, and distal segments are normal in caliber. INFERIOR VENA CAVA: Visualized portions are normal. LIVER: Normal. The liver is normal in size. The liver contour is normal. Parenchymal echogenicity is normal. No focal hepatic lesion. There is no intrahepatic biliary duct dilatation seen. GALLBLADDER: Normal. The gallbladder is physiologically distended without evidence of stones, sludge, polyps, wall thickening or pericholecystic fluid. COMMON BILE DUCT: Normal in caliber measuring 0.3 cm in diameter. RIGHT KIDNEY: Normal. No hydronephrosis. No renal calculi or focal parenchymal lesions. The kidney measures 9.5 cm in maximum dimension. LEFT KIDNEY: Normal. No hydronephrosis. No renal calculi or focal parenchymal lesions. The kidney measures 10.6 cm in maximum dimension. SPLEEN: Normal. The spleen measures 10.2 cm in maximum dimension. FREE FLUID: None. US/US abdomen complete IMPRESSION: Limited visualization of the tail the pancreas otherwise unremarkable exam. Discharge Plan Discharge Clinical Impression: Epigastric pain Abdominal pain Qualifiers: Abdominal location: generalized Qualified Code(s): R10.84 - Generalized abdominal pain Patient Disposition: Home, Self-Care Instructions: Abdominal Pain (ED), Epigastric Pain (ED), Chronic Abdominal Pain (ED) Additional Instructions: You were evaluated for abdominal and epigastric pain. This has been a chronic problem for you. You must follow-up with Gastroenterology as scheduled. Ultrasound was negative for acute findings of the abdomen. Her lab values were normal. We prescribed dicyclomine, which is an anti spasmodic anticholinergic medication. Do not drink alcohol with this medication. This medication is designed to help reduce abdominal cramping and pain. Thank you for choosing this emergency department for evaluation. Please follow-up with primary care physician as needed. Return to the emergency department for any new, concerning, or worsening symptoms. Prescriptions: New dicyclomine 20 mg tablet 20 mg PO TID PRN (Reason: Abdominal cramping) Qty: 30 RF: 0 No Action fluoxetine 10 mg capsule 10 mg PO DAILY RF: 0 prazosin 2 mg capsule 2 mg PO BID RF: 0 famotidine 10 mg tablet PO RF: 0 loperamide [Imodium A-D] 2 mg capsule 2 mg PO Q6H PRN (Reason: loose stool) Qty: 20 RF: 0 Discharge Date/Time: 04/20/21 01:08 [facility] Past Medical History Attestation statement: The following information was validated with the patient. Source: old records reviewed Medical History Blurred vision, bilateral Complaint of melena Epigastric pain Heartburn Lumbago with sciatica, left side Obesity (BMI 30-39.9) Positive depression screening Family History Family History Father History of renal dialysis Chronic kidney disease (CKD) Social History Social History Housing: Condominium Alcohol intake: unknown Patient Tobacco Use Status: Never used Tobacco e-Cigarette/Vaping Use: Currently Using Second Hand Smoke Exposure: Yes Use of substances other than those prescribed or required for medical reasons: No Substance Use Type: Marijuana Advance Directives: No Advance Directives Information Provided: Yes Patient : No Current occupational status: employed Current occupation: [employer] Sexual orientation: Lesbian/Lomas/Homosexual
[2021-04-19 22:00] VITALS: BP 128/82; PULSE 65; RESP 22; TEMP 37; O2SAT 99
--- NOTE | 2021-04-19 22:36 | PC.NURSE ---
pT COMPLAINING OF OVER A YEAR OF INTERMITTENT MID BACK PAIN AND MID UPPER ABD PAIN WHICH LAST FOR A FEW DAYS THEN RESOLVE. HAS BEEN FOLLOWED BY GI AND RECENTLY PROVIDED STOOL SAMPLES.
[2021-04-20] VITALS: BP 125/81; PULSE 65; RESP 22; O2SAT 99
== END 2021-04-20 01:08 | disposition home or self-care (01) ==
PROVIDERS: Internal Medicine; Emergency Provider Student in an Organized Health Care Education/Training Program; PCP Internal Medicine
DX: R10.84 Generalized abdominal pain (principal); K92.1 Melena
CPT/HCPCS: 36415; 76700; 80048; 81025; 85025; 87086; 99284

== ENCOUNTER → 2021-05-08 08:53 | Outpatient (BNVA) | payer OTHER, SELFPAY | PROVIDERS: PCP Internal Medicine; Referring Provider Internal Medicine; Visit Provider Physician Assistant | DX: R10.13 Epigastric pain (principal); R19.7 Diarrhea, unspecified | CPT/HCPCS: 99212 ==

== ENCOUNTER 2021-05-08 09:44 | Outpatient (REF) | payer OTHER, SELFPAY ==
[2021-05-08 10:45] LABS: MANUAL DIFF FLAG NO
[2021-05-08 11:02] LABS: Basophils Percent Auto 0.7 % (0-2); Eosinophils Absolute Auto 0.1 X10*3/uL (0.0-0.4); Eosinophils Percent Auto 1.1 % (0-4); Hematocrit 40.8 % (37-47); Hemoglobin 13.7 g/dl (12.0-16.0); Imm Gran Abs Auto 0.01 X10*3/uL (0.00-0.03); Imm Gran Pct Auto 0.2 % (0.0-0.4); Lymphocytes Absolute Auto 1.9 X10*3/uL (1.2-4.9); Lymphocytes Percent Auto 33.5 % (20-40); Mean Corpuscular HGB Conc 33.6 g/dl (31.0-35.0); Mean Corpuscular Hemoglobin 29.1 pg (27.0-33.0); Mean Corpuscular Volume 86.8 fL (80-98); Monocytes Absolute Auto 0.3 X10*3/uL (0.1-1.2); Monocytes Percent Auto 5.9 % (2-11); Neutrophils Absolute Auto 3.3 X10*3/uL (2.0-8.3); Neutrophils Percent Auto 58.6 % (45-73); Platelet Count 266 X10*3/uL (160-400); Red Cell Distribution Width 12.2 % (11.0-16.0); White Blood Count 5.6 X10*3/uL (4.8-10.8)
[2021-05-08 11:37] LABS: HBc Num1 0.14 S/CO (0.00-0.79); HBsAGNum1 0.21 S/CO (0.00-0.99); Hepatitis B Core Antibody Nonreactive (Nonreactive); Hepatitis B Surface Antigen Negative (Negative)
[2021-05-08 11:51] LABS: HBS Num1 10.63 mIU/mL (0-7.99)
[2021-05-08 13:06] LABS: HBS Num2 11.06 mIU/mL (0-7.99); HBS Num3 11.21 mIU/mL (0-7.99); ~Hepatitis B Surface Antibody GRAYZONE (Nonreactive)
== END 2021-05-08 09:45 | disposition home or self-care (01) ==
LOC: HO.WFDLDS 09:44
PROVIDERS: Visit Provider Physician Assistant
DX: R74.01 Elevation of levels of liver transaminase levels (principal); R10.13 Epigastric pain; K62.5 Hemorrhage of anus and rectum
CPT/HCPCS: 36415; 85025; 86704; 86706; 87340

== ENCOUNTER → 2021-06-05 09:39 | Outpatient (BNVA) | payer OTHER, SELFPAY | PROVIDERS: PCP Internal Medicine; Referring Provider Internal Medicine; Visit Provider Physician Assistant | DX: R19.7 Diarrhea, unspecified (principal); R12 Heartburn; K92.1 Melena; E66.9 Obesity, unspecified; U07.0 Vaping-related disorder; Z68.39 Body mass index [BMI] 39.0-39.9, adult; Z91.013 Allergy to seafood; Z91.018 Allergy to other foods; Z79.899 Other long term (current) drug therapy | CPT/HCPCS: 99212 ==

== ENCOUNTER 2021-07-11 11:29 | Day surgery (SDC) | payer OTHER, SELFPAY ==
[2021-07-06 12:00] VITALS: BMI 39.1
--- NOTE | 2021-07-10 09:23 | P.CONAN_ITS ---
Documented by User: Farrah Woo NP 07/10/21 09:26 HPI - Anesthesia Eval Consult details Narrative: 25yo F for Upper Endoscopy and Colonoscopy PMFSH Active Problems Active Problems: All Active Problems (Updated 06/05/21 @ 10:58 by Dimple La PA-C) Gastritis (Acute) Diarrhea (Acute) Cervical cancer screening (Acute) Potential exposure to STD (Acute) Well woman exam with routine gynecological exam (Acute) Epigastric pain (Acute) Complaint of melena (Acute) Heartburn (Acute) Lumbago with sciatica, left side (Acute) Positive depression screening (Acute) Blurred vision, bilateral (Acute) Obesity (BMI 30-39.9) (Acute) Past Medical History Medical History Blurred vision, bilateral Complaint of melena Epigastric pain Heartburn Lumbago with sciatica, left side Obesity (BMI 30-39.9) Positive depression screening Family History Family History Father History of renal dialysis Chronic kidney disease (CKD) Social History Social [facility] Alcohol intake: unknown Patient Tobacco Use Status: Never used Tobacco e-Cigarette/Vaping Use: Currently Using Second Hand Smoke Exposure: Yes Substance Use Type: Marijuana Advance Directives: No Advance Directives Information Provided: Yes Current occupational status: employed Current occupation: [employer] Sexual orientation: Lesbian/Lomas/Homosexual Meds Allergies Allergy/AdvReac Type Severity Reaction Status Date / Time shellfish derived Allergy Intermediate HIVES Verified 06/05/21 09:46 [SHELLFISH DERIVED] SWOLLEN FACE [place] And Derivatives Allergy Unknown hives Verified 06/05/21 09:46 [CITRUS] SEAFOOD Allergy Unknown ANGIOEDEMA Uncoded 06/05/21 09:46 Home Medications Medication Instructions Recorded Confirmed Last Taken Type fluoxetine 10 mg capsule 10 mg PO DAILY 03/23/21 06/05/21 Unknown History prazosin 2 mg capsule 2 mg PO BID 03/23/21 06/05/21 Unknown History Exam Exam Date and Time: July 10, [id number] Height,Weight and Vital Signs: Height 5 ft 3 in Weight 100.244 kg Pertinent Lab Results Pertinent Lab Results: Laboratory Tests 04/19/21 05/08/21 19:32 10:00 WBC 5.6 Hgb 13.7 Hct 40.8 Plt Count 266 Sodium 141 Potassium 4.1 Chloride 107 Carbon Dioxide 28 BUN 12 Creatinine 0.85 Assessment and Plan Assessment Anesthesia Assessment: Chart Reviewed Documented by User: Maria C Arias MD 07/11/21 12:00 [facility], [facility] Past Medical History Medical History Blurred vision, bilateral Complaint of melena Epigastric pain Heartburn Lumbago with sciatica, left side Obesity (BMI 30-39.9) Positive depression screening Family History Family History Father History of renal dialysis Chronic kidney disease (CKD) Social History Social History Housing: Condominium Alcohol intake: unknown Patient Tobacco Use Status: Never used Tobacco e-Cigarette/Vaping Use: Currently Using Second Hand Smoke Exposure: Yes Substance Use Type: Marijuana Advance Directives: No Advance Directives Information Provided: Yes Current occupational status: employed Current occupation: [employer] Sexual orientation: Lesbian/Lomas/Homosexual Meds Allergies Allergy/AdvReac Type Severity Reaction Status Date / Time shellfish derived Allergy Intermediate HIVES Verified 06/05/21 09:46 [SHELLFISH DERIVED] SWOLLEN FACE [place] And Derivatives Allergy Unknown hives Verified 06/05/21 09:46 [CITRUS] SEAFOOD Allergy Unknown ANGIOEDEMA Uncoded 06/05/21 09:46 Home Medications Medication Instructions Recorded Confirmed Last Taken Type fluoxetine 10 mg capsule 10 mg PO DAILY 03/23/21 06/05/21 Unknown History prazosin 2 mg capsule 2 mg PO BID 03/23/21 06/05/21 Unknown History Exam Airway Mallampati Class: II TM Dist: >3cm Neck ROM: Full
--- NOTE | 2021-07-11 11:39 | MHC.SHP ---
Pre-Procedural Eval Section A Date of Service: 07/11/21 Section B Chief Complaint: diarrhea,heartburn Relevant Family History (Specify if Yes): No Relevant Social History: Other (specify) Present Medications: see Short Stay Collaborative assessment Medical History: Significant History (Blurred vision, bilateral Complaint of melena Epigastric pain Heartburn Lumbago with sciatica, left side Obesity (BMI 30-39.9) Positive depression screening) History of Previous Operations: No relevant previous surgery Allergies: Allergies Allergy/AdvReac Type Severity Reaction Status Date / Time shellfish derived Allergy Intermediate HIVES Verified 06/05/21 09:46 [SHELLFISH DERIVED] SWOLLEN FACE [place] And Derivatives Allergy Unknown hives Verified 06/05/21 09:46 [CITRUS] SEAFOOD Allergy Unknown ANGIOEDEMA Uncoded 06/05/21 09:46 Review of Systems Sugical H&P ROS: Negative: Constitution, Cardiovascular, Respiratory, Neurological, Psychiatric, Hem-Onc, Allergic/Immunologic, Gastrointestinal, Genitourinary, Musculoskeletal, Integumentary, Endocrine and Eyes/Ears/Nose/Throat Exam Surgical H&P Exam: Normal: HEENT, Normal: Heart, Normal: Lungs, Normal: Extremities, Normal: Abdomen, Normal: Skin and Normal: Neurological Plan Diagnosis/Plan: Unchanged I have reviewed the history and physical and performed a pertinent physical examination on my patient. No changes have occurred unless specified.
[2021-07-11 11:51] LABS: Glucose, Whole Blood 91 mg/dL (60-115)
[2021-07-11 12:04] LABS: UPreg QC Valid YES; Urine Pregnancy NEGATIVE (NEGATIVE)
--- NOTE | 2021-07-11 12:04 | PM.OP ---
Brief Operative Note Date of Service: 07/11/21 Pre-op diagnosis: diarrhea Post-op diagnosis: same Procedure: see op note Surgeon: Royer Vasquez MD Anesthesia: MAC Was an Oral And Maxillofacial Pathologist used for this Procedure?: No Estimated blood loss (mL): 0 Condition: stable Disposition: PACU
[2021-07-11 12:05] VITALS: BP 160/91; PULSE 92; RESP 16; TEMP 36.9; O2SAT 98
--- NOTE | 2021-07-11 12:05 | P.OP_ITS ---
Operative Note Operative Note Date of Service: 07/11/21 Narrative: Operative Information Procedure Description: EGD, Colonoscopy FLEXIBLE TRANSORAL UPPER GASTROINTESTINAL ENDOSCOPY AND COLONOSCOPY PROCEDURE NOTE UPPER ENDOSCOPY Consent: Indications for the procedure and potential complications of bleeding, perforation, reaction to medications and missed diagnosis were discussed with the patient and informed consent was obtained. Instrument: Olympus GIF H 190 J mid size upper endoscope Monitoring: Vital signs and clinical assessment, continuous EKG monitoring, Pulse oximetry, Carbon Dioxide monitoring and blood pressure monitoring were done throughout the procedure. Procedure: The patient was placed in the left lateral decubitis position and pre-procedure medications were administered and a bite block was placed. The endoscope was inserted into the mouth and advanced under direct vision to the third part of duodenum. A careful inspection was made as the upper endoscope was withdrawn including a retroflexed examination of the proximal stomach; Findings and interventions are described below. Findings: Larynx:normal Esophagus: GE junction at 36 cm, diaphragm hiatus at 36 cm, mild LA grade A esophagitis noted at GEJ Stomach: shallow ulcer 1 cm at the antrum, biopsy taken. Random stomach biopsies were also obtained. Grade 2 flap valve on retroflexed examination of the cardia. Duodenum: Normal bulb and descending duodenum, bx taken Intervention: Biopsies as noted above COLONOSCOPY Instrument: Olympus variable stiffness pediatric scope 190L Colonoscopy Monitoring: Vital signs and clinical assessment, continuous EKG monitoring, Pulse oximetry, Carbon Dioxide monitoring and blood pressure monitoring were done throughout the procedure. Colon withdrawal time was 10 minutes. Procedure: The patient was placed in the left lateral decubitis position and pre-procedure medications were administered. After a digital rectal examination of the ano-rectum, the video colonoscope was inserted into the rectum and advanced through the colon to the cecum/TI. The colonoscope was slowly withdrawn in a retrograde panoramic fashion and the colon mucosa was carefully examined including a retroflexed view of the rectum. Findings and interventions are described below. Procedure Difficulty: Findings: Terminal Ileum-normal, bx taken random colon bx taken Cecum:10 mm sessile polyp removed with cold snare Ascending Colon: normal Transverse Colon -normal Descending Colon:normal Sigmoid Colon: normal Rectum: Retroflexion with small internal hemorrhoids, grade I Anorectum - normal Colon preparation: [place] Bowel Preparation Scale Right colon; 1 Transverse colon: 2 Left colon; 1 (0 = Unprepared colon segment with mucosa not seen due to solid stool that can not be cleared. 1 = Portion of mucosa of the colon segment seen, but other areas of the colon segment not well seen due to staining, residual stool and/or opaque liquid. 2 = Minor amount of residual staining, small fragments of stool and/or opaque liquid, but mucosa of colon segment seen well. 3 = Entire mucosa of colon segment seen well with no residual staining, small fragments of stool or opaque liquid) Impression and Post Procedure Diagnosis: Endoscopy Findings: gastric ulcer esophagitis Colonoscopy Findings: polyp internal hemorrhoids Plan: Await Pathology results Repeat Colonoscopy in 1 year due to prep and finding of polyp today or earlier if clinically indicated High fiber diet leaflet avoid straining at stool, epsom salts and sitz bath, anusol supps or cream check for surreptitious NSAID use if h pylori pos treat meantime commence PPI and stop famotidine Above findings were reviewed with the patient and relevant handouts were provided if indicated.
--- NOTE | 2021-07-11 12:06 | PC.NURSE ---
Patient into SSS prep area, standard pre op questions asked, when asked about pain, stated 10/10 in right hip , when asked why she stated I fell down the stairs yesterday. Further questioned about nature of fall, said Shelly been feeling dizzy, on and off since about March, it makes me feel like I have to pass out. Also stated it was a bad fall, my friends were even like are you okay? . Asked if she hit her head, stated no. Dr Arias Anesthesia informed, at bedside evaluating patient. Patient told Dr Arias Suddenly my eyes went not cross eyed but I was seeing doubles. HR, O2 & resp rate WNL, BP elevated at 160/91- no history of hypertension, POC 91., hands clammy to the touch, no neuro deficits noted upon exam. Per Dr Arias, awaiting results from HCG and stat lytes to be drawn. Dr Vasquez also evaled at bedside and believes could be due to dehydration resulting form chronic diarrhea.
[2021-07-11] MEDS: Lactated Ringers 1,000 ML 100 ML IVCONT (12:40)
[2021-07-11 12:50] LABS: Anion Gap 13 (12-20); Carbon Dioxide 23 mmol/L (22-29); Chloride 106 mmol/L (96-108); Potassium 4.3 mmol/L (3.3-5.1); Sodium 138 mmol/L (135-145)
[2021-07-11 13:59] VITALS: BP 109/63; PULSE 76; RESP 14; TEMP 37.2; O2SAT 96
[2021-07-11 14:14] VITALS: BP 122/71; PULSE 62; RESP 14; O2SAT 96
[2021-07-11 14:31] VITALS: BP 122/89; PULSE 71; RESP 16; TEMP 37.2; O2SAT 99
== END 2021-07-11 16:18 ==
LOC: HO.SSS 11:30
PROVIDERS: Anesthesiology; Nurse Practitioner; PCP Internal Medicine; Visit Provider Internal Medicine Gastroenterology
PROC: (CPT 45385; principal; 2021-07-11 12:30)
DX: R19.7 Diarrhea, unspecified (principal); D12.0 Benign neoplasm of cecum; K64.0 First degree hemorrhoids; R12 Heartburn; K25.9 Gastric ulcer, unspecified as acute or chronic, without hemorrhage or perforation; K20.80 Other esophagitis without bleeding; K44.9 Diaphragmatic hernia without obstruction or gangrene; F32.9 Major depressive disorder, single episode, unspecified; F17.290 Nicotine dependence, other tobacco product, uncomplicated; F12.90 Cannabis use, unspecified, uncomplicated; Z79.899 Other long term (current) drug therapy
CPT/HCPCS: 45385; 45380; 43239; 36415; 80051; 81025; 82947; 88305; 88342

== ENCOUNTER 2021-09-14 09:23 | Outpatient (REF) | payer OTHER, SELFPAY ==
[2021-09-14 11:53] LABS: Hematocrit 41.8 % (37.0-47.0); Hemoglobin 13.7 g/dl (12.0-16.0); Mean Corpuscular HGB Conc 32.8 g/dl (31.0-35.0); Mean Corpuscular Hemoglobin 28.1 pg (27.0-33.0); Mean Corpuscular Volume 85.8 fL (80.0-98.0); Mean Platelet Volume 9.9 fL (9.4-12.3); Platelet Count 331 X10*3/uL (160-400); Red Blood Count 4.87 X10*6/uL (4.20-5.50); White Blood Count 6.3 X10*3/uL (4.8-10.8)
[2021-09-14 12:12] LABS: Alanine Aminotransferase 38 U/L (0-31); Albumin Level 4.1 g/dL (3.5-5.0); Alkaline Phosphatase 73 U/L (39-117); Anion Gap 14 (12-20); Aspartate Amino Transferase 26 U/L (5-31); Bilirubin Direct 0.3 mg/dL (0.0-0.5); Bilirubin Total 0.7 mg/dL (0.0-1.0); Blood Urea Nitrogen 14 mg/dL (9-16); Calcium 9.5 mg/dL (8.4-10.2); Carbon Dioxide 23 mmol/L (22-29); Chloride 107 mmol/L (96-108); Estimated Glomerular Filt Rate > 60; Glucose Random 101 mg/dL (60-115); Potassium 4.5 mmol/L (3.3-5.1); Sodium 139 mmol/L (135-145); Total Protein 7.1 g/dL (6.5-8.0)
== END 2021-09-14 09:24 | disposition home or self-care (01) ==
LOC: HO.HMGCLDS 09:23
PROVIDERS: PCP Internal Medicine; Visit Provider Internal Medicine
DX: R10.9 Unspecified abdominal pain (principal)
CPT/HCPCS: 36415; 80048; 80076; 85027

== ENCOUNTER 2021-09-18 11:14 | Outpatient (REF) | payer OTHER, SELFPAY | END 2021-09-18 11:15 | disposition home or self-care (01) | LOC: HO.LAB 11:14 | PROVIDERS: PCP Internal Medicine; Visit Provider Internal Medicine Gastroenterology | DX: Z13.89 Encounter for screening for other disorder (principal) ==

== ENCOUNTER 2021-09-18 13:52 | Outpatient (REF) | payer OTHER, SELFPAY ==
[2021-09-18 15:43] LABS: Ferritin 44 ng/mL (10-122); HCG Quantitative < 2 mIU/mL; Vitamin D 25-OH Total 9.3 ng/mL (>30)
[2021-09-18 16:04] LABS: Folate 15.7 ng/mL (> or = 4.0); Vitamin B12 311 pg/mL (200-900)
[2021-09-19 10:55] LABS: Complement C3 99 mg/dL (83-193)
[2021-09-20 01:07] LABS: Lyme Abs Screen <0.90 index
[2021-09-20 04:42] LABS: IgA 334 mg/dL (47-310); IgG 1251 mg/dL (600-1640); IgM 144 mg/dL (50-300)
[2021-09-20 11:02] LABS: Myeloperoxidase Antibody <1.0 AI; Proteinase 3 PR3 Antibodies <1.0 AI
[2021-09-20 22:37] LABS: Cyclic Citrullinated Peptide <16 UNITS
[2021-09-21 05:16] LABS: Babesia IgG <1:64 titer (<1:64); Babesia IgM <1:20 titer (<1:20)
[2021-09-21 17:50] LABS: Histamine Plasma <1.5 ng/mL (< OR = 1.8)
[2021-09-21 18:01] LABS: Nicotinamide <20 ng/mL; Vit B3 - Nicotinic Acid <20 ng/mL
[2021-09-21 18:36] LABS: Vitamin C 0.5 mg/dL (0.3-2.7)
[2021-09-21 20:17] LABS: Gastrin 238 pg/mL (<=100)
[2021-09-21 21:02] LABS: Calcitonin <2 pg/mL (<=5)
[2021-09-21 23:22] LABS: Zinc 135 mcg/dL (60-130)
[2021-09-22 00:37] LABS: Anti Nuclear Antibody Screen POSITIVE (NEGATIVE)
[2021-09-22 11:51] LABS: Metanephrine, Free 49 pg/mL (<=57); Normetanephrines, Free 53 pg/mL (<=148); Total Metanephrine, Free 102 pg/mL (<=205)
[2021-09-24 18:37] LABS: Vitamin A 40 mcg/dL (38-98)
[2021-09-24 18:46] LABS: Alpha-Tocopherol 10.7 mg/L (5.7-19.9); Beta-Gamma Tocopherol 1.2 mg/L (<=4.3)
[2021-09-25 01:32] LABS: Porphyrins, Total Plasma 0.5 mcg/L (1.0-5.6)
[2021-09-25 10:12] LABS: A. Phagocytophilum Ab IgG <1:64 (<1:64); A. Phagocytophilum Ab IgM <1:20 (<1:20); E. Chaffeensis Ab IgG <1:64 (<1:64); E. Chaffeensis Ab IgM <1:20 (<1:20)
[2021-09-25 13:40] LABS: Vitamin K1 209 pg/mL (130-1500)
[2021-10-08 09:11] LABS: Prostaglandin D2 Random Urine 121 ng/liter
== END 2021-09-18 13:53 | disposition home or self-care (01) ==
LOC: HO.LAB 13:52
PROVIDERS: PCP Internal Medicine; Visit Provider Internal Medicine Gastroenterology
DX: K29.50 Unspecified chronic gastritis without bleeding (principal); K52.839 Microscopic colitis, unspecified; R00.2 Palpitations; R10.9 Unspecified abdominal pain; R19.7 Diarrhea, unspecified; R42 Dizziness and giddiness; R79.82 Elevated C-reactive protein (CRP)
CPT/HCPCS: 36415; 82180; 82306; 82308; 82542; 82607; 82728; 82746; 82784; 82941; 82943; 83088; 83520; 83835; 84150; 84207; 84307; 84446; 84590; 84591; 84597; 84630; 84702; 86021; 86038; 86039; 86160; 86200; 86617; 86618; 86666; 86753

== ENCOUNTER 2021-09-20 09:44 | Outpatient (REF) | payer OTHER, SELFPAY ==
[2021-09-26 13:07] LABS: Metanephrine, Free 24U 142 mcg/24 h (25-222); Normetanephrine, Free 24U 246 mcg/24 h (40-412); Total Metanephrine, Free 24U 388 mcg/24 h (94-604); Total Volume 24U 850 mL
[2021-09-26 17:41] LABS: Coproporphyrin I, 24Hr 29.8 mcg/24 h (7.1-48.7); Coproporphyrin III, 24Hr 62.6 mcg/24 h (11.0-148.5); Heptacarboxylporphyrin, 24U 0.5 mcg/24 h (< OR = 3.3); Porphyrins, Total 24 Hr 115.9 mcg/24 h (35.0-210.7); Total Volume, Porphyrins 24Hr 850 mL; Uroporphyrin I, 24 Hr 18.9 mcg/24 h (4.1-22.4); Uroporphyrin III, 24Hr 3.1 mcg/24 h (0.7-7.4)
[2021-09-26 20:27] LABS: Hydroindolacetic Acid,5- 3.1 mg/24 h (<=6.0)
[2021-09-27 10:30] LABS: Creatinine 24Hr Urine 1411 mg/24 h (603 - 1783); N-Methylhistamine, 24Hr Urine 112 mcg/g Cr (30-200); Total Volume 850 mL
[2021-09-28 07:36] LABS: Total Volume 850
== END 2021-09-20 09:45 | disposition home or self-care (01) ==
LOC: HO.LNP 09:44
PROVIDERS: Visit Provider Internal Medicine Gastroenterology
DX: K29.50 Unspecified chronic gastritis without bleeding (principal); R00.2 Palpitations; R10.9 Unspecified abdominal pain; R19.7 Diarrhea, unspecified; R42 Dizziness and giddiness
CPT/HCPCS: 81050; 82542; 83497; 83835; 84120

== ENCOUNTER → 2021-10-08 15:55 | Outpatient (BNVA) | payer OTHER, SELFPAY | PROVIDERS: Referring Provider Internal Medicine; Visit Provider Nurse Practitioner Family | DX: K20.90 Esophagitis, unspecified without bleeding (principal); K29.50 Unspecified chronic gastritis without bleeding; K58.0 Irritable bowel syndrome with diarrhea; R10.9 Unspecified abdominal pain; R19.7 Diarrhea, unspecified | CPT/HCPCS: 99212 ==

== ENCOUNTER 2021-10-16 13:55 | Outpatient (REF) | payer OTHER, SELFPAY | END 2021-10-16 13:56 | disposition home or self-care (01) | LOC: HO.US 13:55 | PROVIDERS: PCP Internal Medicine; Visit Provider Internal Medicine Gastroenterology | DX: Z13.89 Encounter for screening for other disorder (principal) ==

== ENCOUNTER → 2021-10-31 11:26 | Outpatient (BNVA) | payer OTHER, SELFPAY | PROVIDERS: PCP Internal Medicine; Visit Provider Advanced Practice Midwife ==

== ENCOUNTER 2021-11-06 13:43 | Outpatient (REF) | payer OTHER, SELFPAY ==
--- NOTE | ~2021-11-06 | CT_ITS ---
EXAMINATION: CT ENTEROGRAPHY ABDOMEN AND PELVIS WITH CONTRAST CLINICAL INFORMATION: Periumbilical pain. COMPARISON: Previous abdominal ultrasound April [address] of the abdomen and pelvis April 2021. TECHNIQUE: Study performed with oral VoLumen (1350 mL) and 480 mL of water to distend the abdomen. The patient was injected with 85 mL Omnipaque 350 intravenous contrast which was administered without adverse effect. Coronal and sagittal reformatted images were obtained at the technologist's workstation. This CT examination was performed using dose optimization techniques as appropriate, variously including the following: *Automated exposure control *Adjustment of mA and/or kV according to patient size (this includes techniques or standardized protocols for targeted exams where dose is matched to indication/reason for exam; i.e. extremities or head) *Use of iterative reconstruction technique DLP: 758 mGy-cm FINDINGS: GASTROINTESTINAL FINDINGS: Stomach: Well-distended and normal in appearance. Small intestine: Satisfactorily distended and normal in appearance. Large intestine: Well-distended and normal in appearance. No perirectal changes demonstrated. The appendix is normal. Additional findings: No abnormal enhancement of the vasa recta or significant mesenteric or retroperitoneal lymphadenopathy is seen. No abdominal abscess or fistulous tract demonstrated. ABDOMINAL AND PELVIC CT FINDINGS: Liver, gallbladder, biliary tract: Normal. Pancreas: Normal. Spleen: Normal. Adrenal glands and kidneys: Normal. Ureters and bladder: Normal. Lymphovascular structures: There are small, small bowel mesentery lymph nodes. No enlarged lymph nodes are seen. There is no ascites. Pelvic structures are normal. Bones: Normal. Lung bases: Normal. CT/CT enterography IMPRESSION: Unremarkable examination.
[2021-11-06] MEDS: iohexoL 350 MG/ML 100 ML INFUS..BTL 85 ML IV (15:33)
== END 2021-11-06 13:44 | disposition home or self-care (01) ==
LOC: HO.US 13:43
PROVIDERS: PCP Internal Medicine; Visit Provider Internal Medicine Gastroenterology
DX: R10.33 Periumbilical pain (principal)
CPT/HCPCS: 74177; Q9967

== ENCOUNTER 2021-12-05 20:25 | Emergency (ER) | payer OTHER, SELFPAY ==
--- NOTE | 2021-12-05 | ECG_ITS ---
Test Reason : chest pain Blood Pressure : / mmHG Vent. Rate : 083 BPM Atrial Rate : 083 BPM P-R Int : 138 ms QRS Dur : 082 ms QT Int : 378 ms P-R-T Axes : 034 004 041 degrees QTc Int : 444 ms Normal sinus rhythm with sinus arrhythmia Nonspecific T wave abnormality Abnormal ECG No previous ECGs available Referred By: Generic ED Physician Electronically Signed By:King Romero
[2021-12-05 20:36] VITALS: BP 149/80; PULSE 75; RESP 18; TEMP 36.6; O2SAT 99; BMI 38.0
[2021-12-05 21:01] LABS: MANUAL DIFF FLAG NO
[2021-12-05 21:03] LABS: Basophils Absolute Auto 0.1 X10*3/uL (0.0-0.2); Basophils Percent Auto 0.6 % (0-2); Eosinophils Percent Auto 0.3 % (0-4); Hematocrit 41.6 % (37.0-47.0); Hemoglobin 13.6 g/dl (12.0-16.0); Imm Gran Abs Auto 0.02 X10*3/uL (0.00-0.03); Imm Gran Pct Auto 0.2 % (0.0-0.4); Lymphocytes Absolute Auto 2.6 X10*3/uL (1.2-4.9); Lymphocytes Percent Auto 27.4 % (20-40); Mean Corpuscular HGB Conc 32.7 g/dl (31.0-35.0); Mean Corpuscular Hemoglobin 28.3 pg (27.0-33.0); Mean Corpuscular Volume 86.5 fL (80.0-98.0); Mean Platelet Volume 9.2 fL (9.4-12.3); Monocytes Absolute Auto 0.4 X10*3/uL (0.1-1.2); Monocytes Percent Auto 4.3 % (2-11); Neutrophils Absolute Auto 6.4 x10*3/uL (2.0-8.3); Neutrophils Percent Auto 67.2 % (45-73); Platelet Count 309 X10*3/uL (160-400); Red Blood Count 4.81 X10*6/uL (4.20-5.50); Red Cell Distribution Width 12.8 % (11.0-16.0); White Blood Count 9.6 X10*3/uL (4.8-10.8)
[2021-12-05 21:18] LABS: Anion Gap 13 (12-20); Blood Urea Nitrogen 16 mg/dL (9-16); Calcium 9.8 mg/dL (8.4-10.2); Carbon Dioxide 24 mmol/L (22-29); Chloride 108 mmol/L (96-108); Creatinine Clr Calc Pharmacy 118.1; Estimated Glomerular Filt Rate > 60; Glucose Random 95 mg/dL (60-115); Potassium 4.4 mmol/L (3.3-5.1); Sodium 141 mmol/L (135-145)
[2021-12-05 23:35] VITALS: BP 137/108; PULSE 69; RESP 14; TEMP 37.2; O2SAT 99
--- NOTE | 2021-12-05 23:41 | ED.CHESTPAIN ---
HPI - Chest Pain General Chief Complaint: Chest Pain Stated Complaint: chest pain Time Seen by Provider: 12/05/21 23:34 Source: patient Mode of arrival: ambulatory Limitations: no limitations History of Present Illness HPI narrative: This is a 26-year-old female presenting to the emergency department with complaints of severe pleuritic chest pain since yesterday accompanied with dizziness. Patient tells me that the pain is worse with inspiration worse with expiration. She describes the pain as a intermittent, stabbing pain, nonradiating. She rates it a 10/10. Patient tells me that she typically does not have chest pain. Patient describes her dizziness as disequilibrium she tells me that this has been going on for months. Not accompanied by vision changes or headache. She is not on control. No recent travel. She denies severe stressors in life. She denies fevers, chills, nausea, vomiting, shortness of breath. No history of DVT or PE. She tells me she has abdominal pain however this is chronic in nature. MD complaint: chest pain Onset (ago): day(s) (2) Timing of current episode: episodic and constant Prior episodes: No Onset: during rest Pain location: left chest Pain radiation: none Severity: severe Quality: sharp Relieving factors: nothing Exacerbating factors: inspiration Treatment prior to arrival: none Related Data Home Medications Medication Instructions Recorded Confirmed fluoxetine 10 mg capsule 10 mg PO DAILY 03/23/21 09/20/21 prazosin 2 mg capsule 2 mg PO BID 03/23/21 09/20/21 Previous Rx's Medication Instructions Recorded pantoprazole 40 mg tablet,delayed 40 mg PO DAILY #90 tab 07/11/21 release cholecalciferol (vitamin D3) 1,250 1,250 mcg PO 2XW 90 Days #26 cap 09/20/21 mcg (50,000 unit) capsule sucralfate 1 gram tablet 1 g PO BID #60 tab 10/08/21 norethindrone (contraceptive) 0.35 0.35 mg PO DAILY #28 tab 10/31/21 mg tablet (Laureen) methylcellulose (laxative) 500 mg 500 mg PO DAILY #30 tab 11/13/21 tablet (Citrucel) sennosides 8.6 mg tablet (Natural 8.6 mg PO BEDTIME #30 tab 11/13/21 Senna Laxative) cyclobenzaprine 10 mg tablet 10 mg PO BEDTIME PRN #7 tab 12/06/21 meclizine 25 mg tablet 25 mg PO DAILY PRN #14 tab 12/06/21 Allergies Allergy/AdvReac Type Severity Reaction Status Date / Time shellfish derived Allergy Intermediate HIVES Verified 12/05/21 20:36 [SHELLFISH DERIVED] SWOLLEN FACE Cloud And Derivatives Allergy Unknown hives Verified 12/05/21 20:36 [CITRUS] SEAFOOD Allergy Unknown ANGIOEDEMA Uncoded 12/05/21 20:36 Review of Systems Review of Systems: Constitutional : No Weight loss, No Fever, No Chills, No Fatigue, No Malaise ENT/Mouth : No sore throat, No Rhinorrhea Eyes: No Eye Pain, No Swelling, No Redness Cardiovascular : + Chest Pain, No SOB, No Dyspnea on Exertion, No Orthopnea, No Edema, No Palpitations Respiratory : No Cough, No Sputum, No Wheezing Gastrointestinal : No Nausea, No Vomiting, No Diarrhea, No Constipation, No abdominal Pain, No Hematochezia, No Melena Genitourinary : No Dysuria, No Urinary Frequency, No Hematuria, Musculoskeletal : No joint pain, No Myalgias, No Joint Swelling Skin : No Skin Lesions, No rash Neuro : No Weakness, No Numbness, No Dizziness, No Headache Psych : No Anxiety/Panic, No Depression All other systems reviewed and are negative Yes all other systems are reviewed and are negative [facility] Past Medical History Attestation statement: The following information was validated with the patient. Source: old records reviewed and nursing notes reviewed Medical History Blurred vision, bilateral Complaint of melena Epigastric pain Esophagitis Gastric ulcer Heartburn Lumbago with sciatica, left side Obesity (BMI 30-39.9) Positive depression screening Vitamin D deficiency Surgical History Hx of colonoscopy Hx of esophagogastroduodenoscopy Family History Family History Father History of renal dialysis Chronic kidney disease (CKD) Social History Social History Housing: Condominium Alcohol intake: unknown Patient Tobacco Use Status: Never used Tobacco e-Cigarette/Vaping Use: Currently Using Second Hand Smoke Exposure: Yes Substance Use Type: Marijuana Advance Directives: No Advance Directives Information Provided: Yes Patient : No Current occupational status: employed Current occupation: [employer] Sexual orientation: Lesbian/Lomas/Homosexual Physical Exam Vital Signs: Vital Signs: Last Vital Signs Temp 98.2 F 12/06/21 00:37 Pulse 76 12/06/21 00:37 Resp 16 12/06/21 00:37 BP 138/98 H 12/06/21 00:57 Pulse Ox 99 12/06/21 00:37 BMI result Body Mass Index 38.0 VSS Appearance: Alert.? Oriented X3.? No acute distress.? Head: Normocephalic, atraumatic, no step-offs or deformities Eyes: Pupils equal, round and reactive to light.? ENT: Pharynx normal.? Neck: Normal inspection.? Neck supple.? CVS: Normal heart rate and rhythm.? Pulses normal.?+ pain to palpation to left anterior chest wall. Respiratory: No respiratory distress.? Breath sounds normal.? Abdomen: Soft and nontender.? Skin: Skin warm and dry.? Normal skin color.? Normal skin turgor.? Extremities: No lower extremity edema.? No calf ttp, negative Juan bilaterally. 5/5 strength to bilateral upper and lower extremities Back: No midline tenderness, no C-spine tenderness, full range of motion, no CVA tenderness bilaterally Neuro: Oriented X 3.? No motor deficit.? No sensory deficit. CN 2-12 intact normal [id number]-ufyc, [id number], normal tandem gait. Course Course Course Narrative: Discussed Case w/ . Noted the patient has had multiple CTs with contrast of the abdomen and pelvis, no evidence of renal artery stenosis. Reevaluation(s) Reevaluation #1: CBC within normal limits. No acute electrolyte abnormalities. Troponin negative. D-dimer negative. Unlikely that this is ACS with negative troponin and nonischemic EKG unlikely PE. Patient's orthostatic vital signs negative. Unlikely orthostatic hypotension. Due to the fact that pain is reproducible upon palpation of left anterior chest wall this is likely muscle strain/costochondritis. Patient was given Toradol which appeared to help pain. Patient ambulated to the bathroom with a steady gait. Time: 00:17 Reevaluation #2: Patient's blood pressure was slightly elevated when she arrived however as she continued to have pain her blood pressure went up, hypertension could be secondary to pain. Time: 00:43 Reevaluation #3: Patient given Toradol and meclizine with improvement of symptoms. At this time I feel comfortable with discharge home. Patient's blood pressure with improvement. Patient's blood pressure likely elevated 2nd pain however will have her follow-up with her PCP. Advised her to return with new or worsening symptoms. Comfortable with discharge home. Time: 00:59 MDM - Chest Pain MDM Narrative Medical decision making narrative: 0 26 yo f no pmhx presents to ed w/ pleuritic chest pain x2 days. Physical examination significant for pain to palpation to left anterior chest wall Negative calf tenderness bilaterally. No focal neuro deficits. Lungs clear. Regular rate and rhythm. Patient is noted to be hypertensive. She tells me that her blood pressure has been high lately. She is not on blood pressure medication History and physical examination not consistent with posterior stroke. Normal gfluaj-kq-nalw, resx-uj-pzdp, normal tandem gait. No vision changes. Plan labs, dimer, trop Likely costochondritis however will rule out PE/DVT with a D-dimer. Will rule out ACS. Medical Records Data Attestation: I reviewed the patient's medical records. Lab Data Attestation: I reviewed the patient's lab results. Result diagrams: 12/05/21 20:58 12/05/21 20:58 Labs: Lab Results 12/05/21 12/05/21 12/05/21 Range/Units 20:58 20:58 20:58 WBC 9.6 (4.8-10.8) X10*3/uL RBC 4.81 (4.20-5.50) X10*6/uL Hgb 13.6 (12.0-16.0) g/dl Hct 41.6 (37.0-47.0) % MCV 86.5 (80.0-98.0) fL MCH 28.3 (27.0-33.0) pg MCHC 32.7 (31.0-35.0) g/dl RDW 12.8 (11.0-16.0) % Plt Count 309 (160-400) X10*3/uL MPV 9.2 L (9.4-12.3) fL Immature Gran % (Auto) 0.2 (0.0-0.4) % Neut % (Auto) 67.2 (45-73) % Lymph % (Auto) 27.4 (20-40) % Dickenson % (Auto) 4.3 (2-11) % Eos % (Auto) 0.3 (0-4) % Baso % (Auto) 0.6 (0-2) % Lymph # (Auto) 2.6 (1.2-4.9) X10*3/uL Dickenson # (Auto) 0.4 (0.1-1.2) X10*3/uL Eos # (Auto) 0.0 (0.0-0.4) X10*3/uL Baso # (Auto) 0.1 (0.0-0.2) X10*3/uL Abs Immat Gran (auto) 0.02 (0.00-0.03) X10*3/uL Absolute Neuts (auto) 6.4 (2.0-8.3) x10*3/uL Absolute Nucleated RBC 0.000 (0.0-0.012) X10*3/uL Nucleated RBC % (auto) 0.0 (0.0-0.2) /100WBC D-Dimer High Sensitivty NG/ML Sodium 141 (135-145) mmol/L Potassium 4.4 (3.3-5.1) mmol/L Chloride 108 (96-108) mmol/L Carbon Dioxide 24 (22-29) mmol/L Anion Gap 13 (12-20) BUN 16 (9-16) mg/dL Creatinine 0.81 (0.5-1.4) mg/dL Estim Creat Clear Calc 118.1 Estimated GFR > 60 Random Glucose 95 (60-115) mg/dL Calcium 9.8 (8.4-10.2) mg/dL Troponin I High Sens < 3.5 (<3.5-17.0) ng/L 12/05/21 Range/Units 23:48 WBC (4.8-10.8) X10*3/uL RBC (4.20-5.50) X10*6/uL Hgb (12.0-16.0) g/dl Hct (37.0-47.0) % MCV (80.0-98.0) fL MCH (27.0-33.0) pg MCHC (31.0-35.0) g/dl RDW (11.0-16.0) % Plt Count (160-400) X10*3/uL MPV (9.4-12.3) fL Immature Gran % (Auto) (0.0-0.4) % Neut % (Auto) (45-73) % Lymph % (Auto) (20-40) % Dickenson % (Auto) (2-11) % Eos % (Auto) (0-4) % Baso % (Auto) (0-2) % Lymph # (Auto) (1.2-4.9) X10*3/uL Dickenson # (Auto) (0.1-1.2) X10*3/uL Eos # (Auto) (0.0-0.4) X10*3/uL Baso # (Auto) (0.0-0.2) X10*3/uL Abs Immat Gran (auto) (0.00-0.03) X10*3/uL Absolute Neuts (auto) (2.0-8.3) x10*3/uL Absolute Nucleated RBC (0.0-0.012) X10*3/uL Nucleated RBC % (auto) (0.0-0.2) /100WBC D-Dimer High Sensitivty < 150 NG/ML Sodium (135-145) mmol/L Potassium (3.3-5.1) mmol/L Chloride (96-108) mmol/L Carbon Dioxide (22-29) mmol/L Anion Gap (12-20) BUN (9-16) mg/dL Creatinine (0.5-1.4) mg/dL Estim Creat Clear Calc Estimated GFR Random Glucose (60-115) mg/dL Calcium (8.4-10.2) mg/dL Troponin I High Sens (<3.5-17.0) ng/L ECG Data ECG #1: Attestation: I personally reviewed and interpreted this ECG as follows: ECG interpretation date: 12/06/21 ECG interpretation time: 00:18 Prior ECG tracings: not available for review Interpretation: Ventricular rate of 83, WI normal, QRS normal, QT/QTC normal. EKG shows normal sinus rhythm with sinus arrhythmia. No ST elevations or inversions concerning for ischemia. No previous EKGs to compare with. Critical Care Time Critical Care Time Critical Care Time: No Discharge Plan Discharge Clinical Impression: Dizziness, Acute costochondritis, Hypertension Patient Disposition: Home, Self-Care Additional Instructions: Take your medications as prescribed. If you were prescribed antibiotics today, it is important that you take your medication to their entirety, do not skip any doses, do not finish them early. Follow-up with your primary care provider this week. Follow-up with Cardiology. Take ibuprofen every 6 hours, Tylenol every 4 as needed for pain or discomfort. Your blood pressure was noted to be significantly elevated. Please check your blood pressure Friday, Friday, Friday and follow up with her primary care provider this requires prompt intervention. Return to the emergency department with new or worsening symptoms. Such as headache, dizziness, vision changes, nausea, vomiting, vision changes. In case of emergency call 911 Prescribed you a muscle relaxer as I suspect that this is likely muscular in origin. Please take this at night, do not take this while driving or operating any machinery. I also prescribed the meclizine medicine for dizziness. Take this as needed once or twice a day for dizziness. Your EKG and cardiac enzymes were in normal limits. Prescriptions: New meclizine 25 mg tablet 25 mg PO DAILY PRN (Reason: dizziness) Qty: 14 0RF cyclobenzaprine 10 mg tablet 10 mg PO BEDTIME PRN (Reason: muscle spasm) Qty: 7 0RF No Action Citrucel 500 mg tablet 500 mg PO DAILY Qty: 30 2RF Rx Instructions: take it with full glass of water sennosides [Natural Senna Laxative] 8.6 mg tablet 8.6 mg PO BEDTIME Qty: 30 3RF pantoprazole 40 mg tablet,delayed release (DR/EC) 40 mg PO DAILY Qty: 90 1RF fluoxetine 10 mg capsule 10 mg PO DAILY 0RF prazosin 2 mg capsule 2 mg PO BID 0RF cholecalciferol (vitamin D3) 1,250 mcg (50,000 unit) capsule 1,250 mcg PO 2XW 90 Days Qty: 26 0RF sucralfate 1 gram tablet 1 g PO BID Qty: 60 1RF norethindrone (contraceptive) [Laureen] 0.35 mg tablet 0.35 mg PO DAILY Qty: 28 3RF Referrals: Gauri Samano MD [Primary Care Provider] - 2 days King Roemro MD [Physician] - 1 week Stand Alone Forms: Work/School Release
[2021-12-05 23:53] VITALS: BP 172/89; PULSE 96
[2021-12-05 23:55] VITALS: BP 177/106; PULSE 80
[2021-12-05 23:58] VITALS: BP 163/112; PULSE 80
[2021-12-06 00:02] LABS: D Dimer High Sensitivity < 150 NG/ML
[2021-12-06 00:05] LABS: Troponin-I High Sensitivity < 3.5 ng/L (<3.5-17.0)
[2021-12-06] MEDS: Meclizine HCl 25 MG TABLET PO (00:35)
[2021-12-06 00:37] VITALS: BP 166/109; PULSE 76; RESP 16; TEMP 36.8; O2SAT 99
[2021-12-06 00:57] VITALS: BP 138/98
[2021-12-06] MEDS: Ketorolac Tromethamine 30 MG/ML VIAL IM (00:57)
== END 2021-12-06 01:51 | disposition home or self-care (01) ==
PROVIDERS: Physician Assistant; Emergency Provider Internal Medicine; PCP Internal Medicine
DX: M94.0 Chondrocostal junction syndrome [Tietze] (principal); R42 Dizziness and giddiness; I10 Essential (primary) hypertension
CPT/HCPCS: 36415; 80048; 84484; 85025; 85379; 93005; 96372; 99284; J1885

== ENCOUNTER → 2021-12-07 16:02 | Outpatient (BNVA) | payer OTHER, SELFPAY | PROVIDERS: PCP Internal Medicine; Referring Provider Internal Medicine; Visit Provider Nurse Practitioner Family | DX: K58.9 Irritable bowel syndrome, unspecified (principal); K21.9 Gastro-esophageal reflux disease without esophagitis; R10.9 Unspecified abdominal pain | CPT/HCPCS: 99212 ==

== ENCOUNTER → 2021-12-20 08:00 | Outpatient (REF) | payer OTHER, SELFPAY ==
--- NOTE | ~2021-12-20 | NM_ITS ---
EXAMINATION: NM BILIARY TRACT WITH ORAL FATTY MEAL CLINICAL INFORMATION: Abdominal pain, nausea, and vomiting. COMPARISON: No previous biliary scan is available for comparison. CT enterography dated 11/06/2021 and abdominal ultrasound dated 04/19/2021 are available for comparison. TECHNIQUE: Serial gamma scintillation camera images were obtained over the abdomen for a total observation period of 128 minutes following the intravenous administration of 5.0 mCi Tc-99m Mebrofenin. FINDINGS: There is good concentration of activity in the liver by 5 minutes post injection. Biliary activity is visualized by 10 minutes. The gallbladder is well visualized by 15 minutes. Small bowel is well visualized by 10 minutes. At 60 minutes post Mebrofenin injection, 8 ounces of Ensure-plus Brand was administered orally and an additional 60 minutes of images were obtained. There is good emptying of the gallbladder following ingestion of the fatty meal. At the end of the study there is good clearance of activity from the liver and visualization of diffuse small bowel activity. The calculated gallbladder ejection fraction is 88% (normal gallbladder ejection fraction using Ensure supplement orally is greater than 33%). NM/NM hepatobiliary wo pharm IMPRESSION: Visualization of the gallbladder is evidence of a patent cystic duct and strong evidence against the diagnosis of acute cholecystitis. The common bile duct is patent. Gallbladder emptying and ejection fraction are normal. Liver function appears normal.
== END ==
LOC: HO.NUCMED 08:00
PROVIDERS: Visit Provider Nurse Practitioner Family
DX: R10.9 Unspecified abdominal pain (principal)
CPT/HCPCS: 78226; A9537

== ENCOUNTER 2021-12-24 19:17 | Emergency (ER) | payer OTHER, SELFPAY ==
--- NOTE | ~2021-12-24 | US_ITS ---
EXAMINATION: US ABDOMEN LIMITED CLINICAL INFORMATION: Diffuse abdominal pain for about one year with increased pain starting at about 10 hours before the exam. Nausea and vomiting. COMPARISON: Hepatobiliary nuclear medicine study dated from 12/20/2021. CT enterography dated from 11/06/2021. TECHNIQUE: Real-time imaging of the right upper quadrant abdominal viscera. FINDINGS: PANCREAS: The visualized segments of the pancreas are within normal limits. The tail is obscured by overlying bowel gas. LIVER: Normal. The liver is normal in size. The liver contour is normal. Parenchymal echogenicity is normal. No focal hepatic lesion. There is no intrahepatic biliary duct dilatation seen. GALLBLADDER: Normal. The gallbladder is physiologically distended without evidence of stones, sludge, polyps, wall thickening or pericholecystic fluid. COMMON BILE DUCT: Normal in caliber measuring 0.2 cm in diameter. RIGHT KIDNEY: Normal. No hydronephrosis. No renal calculi or focal parenchymal lesions. The kidney measures 10.2 cm in maximum dimension. FREE FLUID: None. US/US abdomen limited IMPRESSION: No acute sonographic abnormalities to explain the patient's symptoms.
[2021-12-24 20:50] VITALS: BP 166/99; PULSE 85; RESP 18; TEMP 37; O2SAT 100; BMI 38.0
[2021-12-24 22:55] VITALS: BP 140/81; PULSE 81; RESP 18; TEMP 36.5; O2SAT 98
--- NOTE | 2021-12-25 00:07 | ED.ABDPAIN ---
HPI - Abdominal Pain General Chief Complaint: Abdominal Pain Stated Complaint: Abdominal pain Time Seen by Provider: 12/24/21 21:57 Source: patient Mode of arrival: ambulatory Limitations: no limitations History of Present Illness HPI narrative: 26-year-old female with a past medical history obesity, heartburn, gastric ulcer, esophagitis, epigastric pain and gallstones presenting to the ED with complaints of worsening epigastric abdominal pain for the past few hours concerned that it is her gallbladder. She reports that she has been having intermittent epigastric abdominal pain for the past year. She reports that she has been worked up in the past for her gallbladder and she recently was seen by her department administrator on 12/05/2021 and they ordered a nuclear medicine Hepatobilary and she had this done on 12/20/2021 although she reports she does not have the results to this. She reports associated nausea. She denies any fevers, chills, dizziness, headaches, neck pain /stiffness, trouble swallowing or breathing, chest pain or shortness of breath, radiation of the abdominal pain, back pain, dysuria, hematuria, abnormal vaginal discharge, black or bloody stools, recent travel or sick contacts or any other symptoms complaints or concerns at this time. MD elicited complaint: abdominal pain Onset (ago): year(s) (1) Pain Consistency: intermittent Location: epigastric Severity: moderate Quality: aching Radiation: none Migration to: no migration Exacerbating factors: nothing Relieving factors: nothing Associated symptoms: nausea Related Data Home Medications Medication Instructions Recorded Confirmed fluoxetine 10 mg capsule 10 mg PO DAILY 03/23/21 09/20/21 prazosin 2 mg capsule 2 mg PO BID 03/23/21 09/20/21 clonidine HCl 0.1 mg tablet 0.1 - 0.2 mg PO BEDTIME 12/07/21 famotidine 40 mg tablet 40 mg PO DAILY 12/07/21 fluoxetine 40 mg capsule 40 mg PO BEDTIME 12/07/21 lisdexamfetamine 10 mg capsule 10 mg PO DAILY 12/07/21 (Vyvanse) Previous Rx's Medication Instructions Recorded pantoprazole 40 mg tablet,delayed 40 mg PO DAILY #90 tab 07/11/21 release cholecalciferol (vitamin D3) 1,250 1,250 mcg PO 2XW 90 Days #26 cap 09/20/21 mcg (50,000 unit) capsule sucralfate 1 gram tablet 1 g PO BID #60 tab 10/08/21 norethindrone (contraceptive) 0.35 0.35 mg PO DAILY #28 tab 10/31/21 mg tablet (Laureen) sennosides 8.6 mg tablet (Natural 8.6 mg PO BEDTIME #30 tab 11/13/21 Senna Laxative) cyclobenzaprine 10 mg tablet 10 mg PO BEDTIME PRN #7 tab 12/06/21 meclizine 25 mg tablet 25 mg PO DAILY PRN #14 tab 12/06/21 wheat dextrin 3 gram/3.5 gram oral 1 packet PO DAILY #28 ea 12/07/21 powder packet (Benefiber Clear Sugar Free(dextrin)) Allergies Allergy/AdvReac Type Severity Reaction Status Date / Time shellfish derived Allergy Intermediate HIVES Verified 12/07/21 16:07 [SHELLFISH DERIVED] SWOLLEN FACE [place] And Derivatives Allergy Unknown hives Verified 12/07/21 16:07 [CITRUS] SEAFOOD Allergy Unknown ANGIOEDEMA Uncoded 12/07/21 16:07 Review of Systems Review of Systems Constitutional : No Fever, No Chills, No Night Sweats, No Fatigue, No Malaise Cardiovascular : No Chest Pain, No SOB Respiratory : No Cough, No Sputum, No Wheezing, No Dyspnea Gastrointestinal : + Nausea, + Abdominal Pain, No Vomiting, No Diarrhea, No Hematochezia, No Melena Genitourinary : No irregular bleeding, No Dysuria, No Urinary Frequency, No Hematuria,No Urinary Incontinence, No Urgency, No Flank Pain Musculoskeletal : No joint pain, No Myalgias, No Joint Swelling Skin : No Skin Lesions, No rash Neuro : No Weakness, No Numbness, No Paresthesias, No Loss of Consciousness, No Dizziness, No Headache Heme/Lymph: No Lymphadenopathy Endocrine : No Temperature Intolerance Yes all other systems are reviewed and are negative [facility] Past Medical History Attestation statement: The following information was validated with the patient. Medical History Blurred vision, bilateral Complaint of melena Epigastric pain Esophagitis Gastric ulcer Heartburn Lumbago with sciatica, left side Obesity (BMI 30-39.9) Positive depression screening Vitamin D deficiency Surgical History Hx of colonoscopy Hx of esophagogastroduodenoscopy Family History Family History Father History of renal dialysis Chronic kidney disease (CKD) Social History Social History Housing: Condominium Alcohol intake: unknown Patient Tobacco Use Status: Never used Tobacco e-Cigarette/Vaping Use: Currently Using Second Hand Smoke Exposure: Yes Substance Use Type: Marijuana Advance Directives: No Advance Directives Information Provided: Yes Patient : No Current occupational status: employed Current occupation: [employer] Sexual orientation: Lesbian/Lomas/Homosexual Physical Exam ED Vital Signs: Vital Signs - 24 hr 12/24/21 20:50 12/24/21 22:55 Temperature 98.6 F 97.7 F Pulse Rate 85 81 Respiratory Rate 18 18 Blood Pressure 166/99 H 140/81 H Pulse Oximetry 100 98 BMI result Body Mass Index 38.0 Vital signs have been reviewed blood pressure 166/99. Pulse 85. Respiration 18. Temperature 98.6 degrees orally. Oxygen saturations 100% on room air. Appearance: Alert. Oriented X3. No acute distress. Head: Normal external exam. Normocephalic. Eyes: PERRLA. EOMI. Conjunctiva and sclera normal. Eyelids normal. ENT: Pharynx normal. Uvula midline. Moist mucous membranes. No trismus noted. No drooling noted. No muffled voice noted. Neck: Normal inspection. Neck supple. FROM. No adenopathy. No meningeal signs. CVS: Normal heart rate and rhythm. Heart sound normal. No murmurs noted. Pulses normal throughout. Respiratory: No respiratory distress. Painless inspiration. Breath sounds normal. No wheezes/rales/rhonchi noted. Chest nontender. No accessory muscle usage noted or decreased air movement noted. Abdomen: Soft and Mild epigastric abdominal pain. Nondistended. No guarding. No rigidity. Bowel sounds normal in all 4 quadrants. No distention noted. No organomegaly noted. No visible injury noted. No rebound tenderness. Negative Rovsing sign. Negative obturator's sign. Negative psoas sign. Negative Lerma sign. Back: No CVA tenderness. Full range of motion noted. Skin: Skin warm and dry. Normal skin color. Normal skin turgor. No rashes/lesions/lacerations noted. Extremities: Extremities exhibit normal range of motion. Extremities nontender. Neuro: Oriented X 3. No motor deficit. No sensory deficit. Reflexes normal. Normal steady gait. CN's II-XII intact bilaterally? Course Course Course Narrative: 00:10am - 26-year-old female with a past medical history obesity, heartburn, gastric ulcer, esophagitis, epigastric pain and gallstones presenting to the ED with complaints of worsening epigastric abdominal pain for the past few hours concerned that it is her gallbladder. She reports that she has been having intermittent epigastric abdominal pain for the past year. She reports that she has been worked up in the past for her gallbladder and she recently was seen by her department administrator on 12/05/2021 and they ordered a nuclear medicine Hepatobilary and she had this done on 12/20/2021 although she reports she does not have the results to this. She reports associated nausea. Nuclear Medicine Hepatobilary and she had this done on 12/20/2021 revealed NM/NM hepatobiliary wo pharm IMPRESSION: Visualization of the gallbladder is evidence of a patent cystic duct and strong evidence against the diagnosis of acute cholecystitis. The common bile duct is patent. Gallbladder emptying and ejection fraction are normal. Liver function appears normal. Plan: Therefore at this time will obtain labs, UA, UHCG and abdominal ultrasound and re-evaluate. Reevaluation(s) Reevaluation #1: - patient with a white blood cell count at 10,000. Otherwise all other labs are pending. COVID swab pending. Abdominal ultrasound pending. UA and UHCG pending at this time. - Sign Out to JONATHAN Burden pending above Time: 00:54 MDM - Abdominal Pain Medical Records Attestation: I reviewed the patient's medical records. Lab Data Attestation: I reviewed the patient's lab results. Result diagrams: 12/25/21 00:43 12/25/21 00:43 Labs: Lab Results 12/25/21 Range/Units 00:43 WBC 10.9 H (4.8-10.8) X10*3/uL RBC 5.15 (4.20-5.50) X10*6/uL Hgb 14.5 (12.0-16.0) g/dl Hct 43.8 (37.0-47.0) % MCV 85.0 (80.0-98.0) fL MCH 28.2 (27.0-33.0) pg MCHC 33.1 (31.0-35.0) g/dl RDW 12.5 (11.0-16.0) % Plt Count 319 (160-400) X10*3/uL MPV 9.2 L (9.4-12.3) fL Immature Gran % (Auto) 0.3 (0.0-0.4) % Neut % (Auto) 65.4 (45-73) % Lymph % (Auto) 29.4 (20-40) % [place] % (Auto) 4.3 (2-11) % Eos % (Auto) 0.2 (0-4) % Baso % (Auto) 0.4 (0-2) % Lymph # (Auto) 3.2 (1.2-4.9) X10*3/uL [place] # (Auto) 0.5 (0.1-1.2) X10*3/uL Eos # (Auto) 0.0 (0.0-0.4) X10*3/uL Baso # (Auto) 0.0 (0.0-0.2) X10*3/uL Abs Immat Gran (auto) 0.03 (0.00-0.03) X10*3/uL Absolute Neuts (auto) 7.1 (2.0-8.3) x10*3/uL Absolute Nucleated RBC 0.000 (0.0-0.012) X10*3/uL Nucleated RBC % (auto) 0.0 (0.0-0.2) /100WBC Discharge Plan Discharge Clinical Impression: Epigastric pain, Cholelithiasis Patient Disposition: Still a Patient Instructions: Gallstones (ED), Epigastric Pain (ED) Prescriptions: No Action sennosides [Natural Senna Laxative] 8.6 mg tablet 8.6 mg PO BEDTIME Qty: 30 3RF pantoprazole 40 mg tablet,delayed release (DR/EC) 40 mg PO DAILY Qty: 90 1RF meclizine 25 mg tablet 25 mg PO DAILY PRN (Reason: dizziness) Qty: 14 0RF cyclobenzaprine 10 mg tablet 10 mg PO BEDTIME PRN (Reason: muscle spasm) Qty: 7 0RF fluoxetine 10 mg capsule 10 mg PO DAILY 0RF prazosin 2 mg capsule 2 mg PO BID 0RF cholecalciferol (vitamin D3) 1,250 mcg (50,000 unit) capsule 1,250 mcg PO 2XW 90 Days Qty: 26 0RF sucralfate 1 gram tablet 1 g PO BID Qty: 60 1RF clonidine HCl 0.1 mg tablet 0.1 - 0.2 mg PO BEDTIME 0RF fluoxetine 40 mg capsule 40 mg PO BEDTIME 0RF Vyvanse 10 mg capsule 10 mg PO DAILY 0RF famotidine 40 mg tablet 40 mg PO DAILY 0RF Benefiber Clear SF (dextrin) 3 gram/3.5 gram powder in packet 1 packet PO DAILY Qty: 28 5RF Rx Instructions: mix into at least 4 oz water or juice before administering norethindrone (contraceptive) [Laureen] 0.35 mg tablet 0.35 mg PO DAILY Qty: 28 3RF Referrals: Gauri Samano MD [Primary Care Provider] - 2 days Stand Alone Forms: Work/School Release Print Language: Lithuanian
[2021-12-25 00:49] LABS: Basophils Percent Auto 0.4 % (0-2); Eosinophils Percent Auto 0.2 % (0-4); Hematocrit 43.8 % (37.0-47.0); Hemoglobin 14.5 g/dl (12.0-16.0); Imm Gran Abs Auto 0.03 X10*3/uL (0.00-0.03); Imm Gran Pct Auto 0.3 % (0.0-0.4); Lymphocytes Absolute Auto 3.2 X10*3/uL (1.2-4.9); Lymphocytes Percent Auto 29.4 % (20-40); MANUAL DIFF FLAG NO; Mean Corpuscular HGB Conc 33.1 g/dl (31.0-35.0); Mean Corpuscular Hemoglobin 28.2 pg (27.0-33.0); Mean Platelet Volume 9.2 fL (9.4-12.3); Monocytes Absolute Auto 0.5 X10*3/uL (0.1-1.2); Monocytes Percent Auto 4.3 % (2-11); Neutrophils Absolute Auto 7.1 x10*3/uL (2.0-8.3); Neutrophils Percent Auto 65.4 % (45-73); Platelet Count 319 X10*3/uL (160-400); Red Blood Count 5.15 X10*6/uL (4.20-5.50); Red Cell Distribution Width 12.5 % (11.0-16.0); White Blood Count 10.9 X10*3/uL (4.8-10.8)
[2021-12-25 01:00] LABS: Appearance Urine CLEAR; Color Urine YELLOW; Glucose Urine UA NEG (NEG); Leukocyte Esterase Urine NEG (NEG); Nitrite Urine NEG (NEG); PH 5.5 (5.0-8.0); Specific Gravity - Urine >= 1.030 (1.005-1.025); Urine Blood NEG (NEG); Urine Ketones NEG (NEG); Urine Protein NEG (NEG-TRACE)
[2021-12-25 01:03] LABS: UPreg QC Valid YES; Urine Pregnancy NEGATIVE (NEGATIVE)
[2021-12-25 01:05] LABS: COVID-19 Test Negative (Negative)
[2021-12-25 01:08] LABS: Amylase 82 U/L (28-100); C Reactive Protein 0.52 mg/dL (< or = 0.50)
[2021-12-25 01:10] LABS: Alanine Aminotransferase 17 U/L (0-31); Albumin Level 4.4 g/dL (3.5-5.0); Alkaline Phosphatase 80 U/L (39-117); Anion Gap 14 (12-20); Aspartate Amino Transferase 18 U/L (5-31); Bilirubin Total 0.5 mg/dL (0.0-1.0); Blood Urea Nitrogen 11 mg/dL (9-16); Calcium 9.9 mg/dL (8.4-10.2); Carbon Dioxide 26 mmol/L (22-29); Chloride 105 mmol/L (96-108); Creatinine Clr Calc Pharmacy 111.2; Estimated Glomerular Filt Rate > 60; Glucose Random 99 mg/dL (60-115); Lipase 15 U/L (8-78); Sodium 141 mmol/L (135-145); Total Protein 7.8 g/dL (6.5-8.0)
[2021-12-25 01:21] LABS: Erythrocyte Sedimentation Rate 12 MM/HR (0-20)
[2021-12-25 02:19] VITALS: BP 128/85; PULSE 86; RESP 17; TEMP 36.9; O2SAT 97
== END 2021-12-25 02:24 | disposition home or self-care (01) ==
PROVIDERS: Physician Assistant Medical; Emergency Provider Internal Medicine; PCP Internal Medicine
DX: K80.20 Calculus of gallbladder without cholecystitis without obstruction (principal); R10.13 Epigastric pain; Z20.822 Contact with and (suspected) exposure to COVID-19
CPT/HCPCS: 36415; 76705; 80053; 81003; 81025; 82150; 83690; 85025; 85652; 86140; 87635; 99284

== ENCOUNTER 2022-04-13 15:19 | Emergency (ER) | payer OTHER, SELFPAY ==
--- NOTE | ~2022-04-13 | XR_ITS ---
EXAMINATION: XR KNEE, RIGHT CLINICAL INFORMATION: Pain. COMPARISON: None TECHNIQUE: Two views of the right knee. FINDINGS: Bones and soft tissues are normal. No fracture or joint effusion. Alignment is anatomic. Joint spaces are well maintained. No abnormal soft tissue calcification. XR/XR knee RT 2V IMPRESSION: Unremarkable right knee exam.
[2022-04-13 15:31] VITALS: BP 108/62; PULSE 102; RESP 18; TEMP 36.8; O2SAT 98; BMI 42.5
--- NOTE | 2022-04-13 18:44 | ED.LOWEXIN ---
HPI - Extremity Injury (Lower) General Chief Complaint: Extremity Injury, Lower Stated Complaint: right knee pain Time Seen by Provider: 04/13/22 18:29 Source: patient Mode of arrival: ambulatory Limitations: no limitations History of Present Illness HPI Narrative: Patient presents emergency department for evaluation of right knee pain. She states today while cleaning her car thinks she may have twisted wrong and she continued with her the follow-up. Reports pain diffusely throughout the knee. Feels stiff with prolonged rest. Denies any prior injury to this knee. Denies numbness or tingling to the lower extremity or foot. Related Data Home Medications Medication Instructions Recorded Confirmed fluoxetine 10 mg capsule 10 mg PO DAILY 03/23/21 09/20/21 prazosin 2 mg capsule 2 mg PO BID 03/23/21 09/20/21 clonidine HCl 0.1 mg tablet 0.1 - 0.2 mg PO BEDTIME 12/07/21 famotidine 40 mg tablet 40 mg PO DAILY 12/07/21 fluoxetine 40 mg capsule 40 mg PO BEDTIME 12/07/21 lisdexamfetamine 10 mg capsule 10 mg PO DAILY 12/07/21 (Vyvanse) Previous Rx's Medication Instructions Recorded cholecalciferol (vitamin D3) 1,250 1,250 mcg PO 2XW 90 days #26 caps 09/20/21 mcg (50,000 unit) capsule sucralfate 1 gram tablet 1 g PO BID #60 tabs 10/08/21 norethindrone (contraceptive) 0.35 0.35 mg PO DAILY #28 tabs 10/31/21 mg tablet (Laureen) sennosides 8.6 mg tablet (Natural 8.6 mg PO BEDTIME constipation #30 11/13/21 Senna Laxative) tabs cyclobenzaprine 10 mg tablet 10 mg PO BEDTIME PRN muscle spasm 12/06/21 #7 tabs meclizine 25 mg tablet 25 mg PO DAILY PRN dizziness #14 12/06/21 tabs wheat dextrin 3 gram/3.5 gram oral 1 packet PO DAILY #28 ea 12/07/21 powder packet (Benefiber Clear Sugar Free(dextrin)) pantoprazole 40 mg tablet,delayed 40 mg PO DAILY #90 tabs 03/12/22 release Allergies Allergy/AdvReac Type Severity Reaction Status Date / Time shellfish derived Allergy Intermediate HIVES Verified 12/07/21 16:07 [SHELLFISH DERIVED] SWOLLEN FACE [place] And Derivatives Allergy Unknown hives Verified 12/07/21 16:07 [CITRUS] SEAFOOD Allergy Unknown ANGIOEDEMA Uncoded 12/07/21 16:07 Review of Systems Review of Systems: Musculoskeletal: Positive knee pain Yes all other systems are reviewed and are negative [facility] Past Medical History Attestation statement: The following information was validated with the patient. Source: old records reviewed Medical History Blurred vision, bilateral Complaint of melena Epigastric pain Esophagitis Gastric ulcer Heartburn Lumbago with sciatica, left side Obesity (BMI 30-39.9) Positive depression screening Vitamin D deficiency Surgical History Hx of colonoscopy Hx of esophagogastroduodenoscopy Family History Family History Father History of renal dialysis Chronic kidney disease (CKD) Social History [facility] Alcohol intake: unknown Patient Tobacco Use Status: Never used Tobacco e-Cigarette/Vaping Use: Currently Using Second Hand Smoke Exposure: Yes Substance Use Type: Marijuana Advance Directives: No Advance Directives Information Provided: No Current occupational status: employed Current occupation: [employer] Sexual orientation: Lesbian/Lomas/Homosexual Physical Exam Vital Signs: Vital Signs: Last Vital Signs Temp 98.2 F 04/13/22 15:31 Pulse 102 H 04/13/22 15:31 Resp 18 04/13/22 15:31 BP 108/62 04/13/22 15:31 Pulse Ox 98 04/13/22 15:31 O2 Del Method 04/13/22 15:31 BMI result Body Mass Index 42.5 Vital signs have been reviewed as normal and appeared to be correct. Blood pressure normal.? Heart rate normal.? Respiration rate normal. Temperature normal.? Oxygen saturation normal. Appearance: Alert.?Oriented to person, place and time. No acute distress.?Normal affect. Eyes: Pupils equal, round and reactive to light.? ENT: Pharynx normal.?? Neck: Normal inspection.? Neck supple.?? CVS: Heart sounds normal. Normal heart rate and rhythm.? Pulses normal.?? Respiratory: No respiratory distress.? Lung sounds clear to auscultation bilaterally?? Abdomen: Soft and non-tender. Normoactive bowel sounds. No pulsatile mass.?? Skin: Skin warm and dry.? Normal skin color.? Normal skin turgor.?? Extremities: No lower extremity edema.? No calf ttp. Right knee with mild diffuse swelling, no erythema or warmth, no obvious deformity. No laxity. Anterior drawer test/posterior drawer tests/Varus stress test/valgus stress test are all negative. Thuan test negative Neuro: Moves all extremities spontaneously. Sensation intact bilaterally. CN II-XII intact. No focal neuro deficits. Ambulates with a slow antalgic gait. Course Course Course Narrative: Patient is a 26-year-old female being evaluated for right knee pain after precipitating injury. X-ray reveals no acute fracture dislocation. No obvious deformity. Not consistent with septic joint. Ambulatory with slow antalgic gait, partially weight-bearing. Discussed with patient cannot completely exclude ligamentous injury, as x-ray imaging is not the preferred modality for this. Recommended R.I.C.E., Tylenol and ibuprofen as needed for pain, discussed worrisome signs and symptoms to return back to the emergency department, advised to follow-up with her primary care provider as needed. Was discharged home in stable condition. MDM - Extremity Injury (Lower) Medical Records Attestation: I reviewed the patient's medical records. Lab Data Attestation: I reviewed the patient's lab results. Imaging Data XR knee: Radiologist's impression: FINDINGS: Bones and soft tissues are normal. No fracture or joint effusion. Alignment is anatomic. Joint spaces are well maintained. No abnormal soft tissue calcification.? XR/XR knee RT 2V IMPRESSION: Unremarkable right knee exam. Discharge Plan Discharge Clinical Impression: Knee sprain Patient Disposition: Home, Self-Care Instructions: Knee Sprain (ED), How to Use an Elastic Bandage (ED), R.I.C.E. Treatment (ED) Additional Instructions: Your x-ray does not show any fracture dislocation of your knee Be sure to rest, apply ice for 10-15 minutes multiple times a day, use the Erik bandage for compression, elevate your leg when possible. Avoid any strenuous activity over the next couple of days. You can take ibuprofen 200 mg, 3 tablets (600mg) every 6-8 hours as needed for pain, in addition to Tylenol 500 mg, 2 tablets (1,000mg) every 4-6 hours as needed for pain, but not to exceed 3 doses daily (3,000mg).? Follow-up with your primary care provider as needed, feel free to return to the emergency department any new or worsening symptoms or concerns. Prescriptions: No Action sennosides [Natural Senna Laxative] 8.6 mg tablet 8.6 mg PO BEDTIME Qty: 30 3RF pantoprazole 40 mg tablet,delayed release (DR/EC) 40 mg PO DAILY Qty: 90 1RF meclizine 25 mg tablet 25 mg PO DAILY PRN (Reason: dizziness) Qty: 14 0RF cyclobenzaprine 10 mg tablet 10 mg PO BEDTIME PRN (Reason: muscle spasm) Qty: 7 0RF fluoxetine 10 mg capsule 10 mg PO DAILY prazosin 2 mg capsule 2 mg PO BID cholecalciferol (vitamin D3) 1,250 mcg (50,000 unit) capsule 1,250 mcg PO 2XW 90 Days Qty: 26 0RF sucralfate 1 gram tablet 1 g PO BID Qty: 60 1RF clonidine HCl 0.1 mg tablet 0.1 - 0.2 mg PO BEDTIME fluoxetine 40 mg capsule 40 mg PO BEDTIME Vyvanse 10 mg capsule 10 mg PO DAILY famotidine 40 mg tablet 40 mg PO DAILY Benefiber Clear SF (dextrin) 3 gram/3.5 gram powder in packet 1 packet PO DAILY Qty: 28 5RF Rx Instructions: mix into at least 4 oz water or juice before administering norethindrone (contraceptive) [Laureen] 0.35 mg tablet 0.35 mg PO DAILY Qty: 28 3RF Stand Alone Forms: Work/School Release
[2022-04-13 19:00] VITALS: BP 110/72; PULSE 89; RESP 18; TEMP 36.9; O2SAT 99
== END 2022-04-13 19:04 | disposition home or self-care (01) ==
PROVIDERS: Emergency Provider Emergency Medicine; PCP Internal Medicine
DX: S83.91XA Sprain of unspecified site of right knee, initial encounter (principal); Y33.XXXA Other specified events, undetermined intent, initial encounter; Y93.9 Activity, unspecified; Y92.9 Unspecified place or not applicable; Y99.9 Unspecified external cause status; Z79.899 Other long term (current) drug therapy
CPT/HCPCS: 73560; 99282; 99283

== ENCOUNTER 2022-05-24 00:17 | Emergency (ER) | payer OTHER, SELFPAY ==
[2022-05-24 00:18] VITALS: BP 159/93; PULSE 95; RESP 18; TEMP 36.1; O2SAT 98; BMI 42.5
--- NOTE | 2022-05-24 00:58 | ED_ITS ---
HPI - Eye Problem General Chief complaint: Eye Problems Stated complaint: eye injury at work Time Seen by Provider: 05/24/22 00:57 Source: patient Mode of arrival: ambulatory Limitations: no limitations History of Present Illness HPI Narrative: While at work patient got superficial cut by paper to her right eye complaining of increased watering and photosensitivity Related Data Home Medications Medication Instructions Recorded Confirmed fluoxetine 10 mg capsule 10 mg PO DAILY 03/23/21 09/20/21 prazosin 2 mg capsule 2 mg PO BID 03/23/21 09/20/21 clonidine HCl 0.1 mg tablet 0.1 - 0.2 mg PO BEDTIME 12/07/21 famotidine 40 mg tablet 40 mg PO DAILY 12/07/21 fluoxetine 40 mg capsule 40 mg PO BEDTIME 12/07/21 lisdexamfetamine 10 mg capsule 10 mg PO DAILY 12/07/21 (Vyvanse) Previous Rx's Medication Instructions Recorded cholecalciferol (vitamin D3) 1,250 1,250 mcg PO 2XW 90 days #26 caps 09/20/21 mcg (50,000 unit) capsule sucralfate 1 gram tablet 1 g PO BID #60 tabs 10/08/21 norethindrone (contraceptive) 0.35 0.35 mg PO DAILY #28 tabs 10/31/21 mg tablet (Laureen) sennosides 8.6 mg tablet (Natural 8.6 mg PO BEDTIME constipation #30 11/13/21 Senna Laxative) tabs cyclobenzaprine 10 mg tablet 10 mg PO BEDTIME PRN muscle spasm 12/06/21 #7 tabs meclizine 25 mg tablet 25 mg PO DAILY PRN dizziness #14 12/06/21 tabs wheat dextrin 3 gram/3.5 gram oral 1 packet PO DAILY #28 ea 12/07/21 powder packet (Benefiber Clear Sugar Free(dextrin)) pantoprazole 40 mg tablet,delayed 40 mg PO DAILY #90 tabs 03/12/22 release ketorolac 0.4 % eye drops (Acular 1 drp ophthalmic-Right Q6H 4 days 05/24/22 LS) #5 mL tobramycin 0.3 % eye drops 1 drp ophthalmic-Right Q4H #5 mL 05/24/22 Allergies Allergy/AdvReac Type Severity Reaction Status Date / Time shellfish derived Allergy Intermediate HIVES Verified 12/07/21 16:07 [SHELLFISH DERIVED] SWOLLEN FACE [place] And Derivatives Allergy Unknown hives Verified 12/07/21 16:07 [CITRUS] SEAFOOD Allergy Unknown ANGIOEDEMA Uncoded 12/07/21 16:07 Review of Systems Review of Systems: Yes all other systems are reviewed and are negative Eyes: Eyes: Reports photophobia PMFSH Past Medical History Medical History Blurred vision, bilateral Complaint of melena Epigastric pain Esophagitis Gastric ulcer Heartburn Lumbago with sciatica, left side Obesity (BMI 30-39.9) Positive depression screening Vitamin D deficiency Surgical History Hx of colonoscopy Hx of esophagogastroduodenoscopy Family History Family History Father History of renal dialysis Chronic kidney disease (CKD) Social History Social History Housing: Condominium Alcohol intake: unknown Patient Tobacco Use Status: Never used Tobacco e-Cigarette/Vaping Use: Currently Using Second Hand Smoke Exposure: Yes Substance Use Type: Marijuana Advance Directives: No Current occupational status: employed 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 Very thin superficial abrasion in the right cornea starting at 06:00 o'clock anterior chamber normal pupils normal conjunctiva normal MDM - Eye Problem MDM Narrative Medical decision making narrative: Patient has superficial abrasion right cornea discharge patient home on tobramycin and ketorolac eyedrops Discharge Plan Discharge Clinical Impression: Corneal abrasion Patient Disposition: Home, Self-Care Instructions: Corneal Abrasion (ED) Additional Instructions: Local care as advised Tobramycin eye drops to avoid infection Acular eye drops for the pain Abrasion should heal in 3- 4 days Prescriptions: New ketorolac [Acular LS] 0.4 % drops 1 drp ophthalmic-Right Q6H 4 Days Qty: 5 0RF tobramycin 0.3 % drops 1 drp ophthalmic-Right Q4H Qty: 5 0RF No Action sennosides [Natural Senna Laxative] 8.6 mg tablet 8.6 mg PO BEDTIME Qty: 30 3RF pantoprazole 40 mg tablet,delayed release (DR/EC) 40 mg PO DAILY Qty: 90 1RF meclizine 25 mg tablet 25 mg PO DAILY PRN (Reason: dizziness) Qty: 14 0RF cyclobenzaprine 10 mg tablet 10 mg PO BEDTIME PRN (Reason: muscle spasm) Qty: 7 0RF fluoxetine 10 mg capsule 10 mg PO DAILY prazosin 2 mg capsule 2 mg PO BID cholecalciferol (vitamin D3) 1,250 mcg (50,000 unit) capsule 1,250 mcg PO 2XW 90 Days Qty: 26 0RF sucralfate 1 gram tablet 1 g PO BID Qty: 60 1RF clonidine HCl 0.1 mg tablet 0.1 - 0.2 mg PO BEDTIME fluoxetine 40 mg capsule 40 mg PO BEDTIME Vyvanse 10 mg capsule 10 mg PO DAILY famotidine 40 mg tablet 40 mg PO DAILY Benefiber Clear SF (dextrin) 3 gram/3.5 gram powder in packet 1 packet PO DAILY Qty: 28 5RF Rx Instructions: mix into at least 4 oz water or juice before administering norethindrone (contraceptive) [Laureen] 0.35 mg tablet 0.35 mg PO DAILY Qty: 28 3RF Interventions: ED Discharge Assessment Last Done: 05/24/22 01:44 Discharge Date/Time: 05/24/22 01:45
[2022-05-24] MEDS: Tetracaine HCl/PF 0.5% Oph Sol 4 ML DROPS 3 DROP EYE-RIGHT (01:08)
[2022-05-24] MEDS: Fluorescein Sodium STRIP 1 STRIP EYE-RIGHT (01:08)
--- NOTE | 2022-05-24 01:21 | PC.NURSE ---
pt a&ox3, vss, fluorescein and eyedrops pulled from pyxis and scanned for provider.
[2022-05-24] MEDS: Ibuprofen 600 MG TABLET PO (01:39)
[2022-05-24] MEDS: Tobramycin Sulfate 0.3% Sol Op 5 ML BTL 2 DROP EYE-RIGHT (01:39)
--- NOTE | 2022-05-24 01:44 | PC.NURSE ---
medicated per provider order, eye drops instilled into right eye.
== END 2022-05-24 01:45 | disposition home or self-care (01) ==
PROVIDERS: Emergency Provider Internal Medicine; PCP Internal Medicine
DX: S05.01XA Injury of conjunctiva and corneal abrasion without foreign body, right eye, initial encounter (principal); W26.9XXA Contact with unspecified sharp object(s), initial encounter; Y93.9 Activity, unspecified; Y92.9 Unspecified place or not applicable; Y99.9 Unspecified external cause status; Z79.899 Other long term (current) drug therapy
CPT/HCPCS: 99283

== ENCOUNTER 2022-08-23 19:41 | Observation (INO) | payer OTHER, SELFPAY ==
--- NOTE | ~2022-08-23 | CT_ITS ---
EXAMINATION: CT ANGIOGRAM CHEST CLINICAL INFORMATION: chest pain/back pain, r/o dissection COMPARISON: CT dated 11/06/2021 TECHNIQUE: Multiple axial images were obtained through the chest after the administration of 70 mL of Omnipaque 350 intravenous contrast. Extensive vascular post-processing including two-dimensional and three-dimensional reformatted images were created and reviewed on an independent workstation. This CT examination was performed using dose optimization techniques as appropriate, variously including the following: *Automated exposure control *Adjustment of mA and/or kV according to patient size (this includes techniques or standardized protocols for targeted exams where dose is matched to indication/reason for exam; i.e. extremities or head) *Use of iterative reconstruction technique DLP: 536 mGy-cm FINDINGS: VASCULAR: Normal caliber great vessels without evidence of aortic aneurysm, penetrating atherosclerotic ulceration or dissection. While examination is not tailored towards evaluation of the pulmonary vasculature, there are no filling defects within the central or segmental pulmonary arterial branches to suggest pulmonary embolism. Thoracic aorta is normal in caliber. Superior aortic arteries are normal. No significant atherosclerotic disease. Single bilateral renal arteries are both capacious. Patent splanchnic arteries. NONVASCULAR: Lungs are clear. No consolidation, pneumothorax, or pleural effusion. Central airways are clear. Pulmonary nodules. Thyroid gland is normal. Heart is normal in size. No pericardial effusion. No axillary or hilar adenopathy. Hepatic steatosis. Imaged portion of the upper abdomen is otherwise unremarkable. MUSCULOSKELETAL: No acute fracture or malalignment. Paraspinous unremarkable. No significant degenerative spondylosis. Imaged portions of the shoulders are unremarkable. Ribs appear intact. CT/CT angio chest aorta IMPRESSION: 1. No evidence of aortic dissection or aneurysm. 2. No evidence of pulmonary embolism. 3. No acute findings within the chest. 4. Hepatic steatosis.
--- NOTE | ~2022-08-23 | XR_ITS ---
EXAMINATION: XR chest 1V CLINICAL INFORMATION: Reason for Exam cp/sob COMPARISON: Chest radiograph 02/24/2017 TECHNIQUE: One view of the chest FINDINGS: Clear lungs. No pneumothorax or pleural effusion. Normal cardiomediastinal silhouette. XR/XR chest 1V IMPRESSION: * Clear lungs.
--- NOTE | ~2022-08-23 | CT_ITS ---
EXAMINATION: CT head/brain wo IV con CLINICAL INFORMATION: Reason for Exam HTN, GASCA COMPARISON: CT head without contrast 02/27/2015 TECHNIQUE: Contiguous axial imaging was performed from the skull base to vertex without intravenous contrast. Sagittal and coronal reformatted images were obtained. This CT examination was performed using dose optimization techniques as appropriate, variously including the following: * Automated exposure control * Adjustment of mA and/or kV according to patient size (this includes techniques or standardized protocols for targeted exams where dose is matched to indication/reason for exam; i.e. extremities or head) Use of iterative reconstruction technique DLP: 586 mGy-cm FINDINGS: No acute osseous or soft tissue abnormality. The mastoid air cells and visualized portions of the paranasal sinuses are well aerated. There is no evidence of acute intracranial hemorrhage or territorial infarction. No abnormal mass effect or midline shift is seen. Gar to white matter differentiation is well preserved. No extra-axial fluid collections are identified. Chronic asymmetric prominence of the extra-axial spaces along the anterior right temporal lobe. No hydrocephalus. No significant volume loss. There is no abnormal attenuation within the brain parenchyma. CT/CT head/brain wo IV con IMPRESSION: No acute intracranial abnormality including hemorrhage, mass effect, hydrocephalus, or acute territorial edematous infarction.
[2022-08-23 19:48] VITALS: BP 202/122; PULSE 96; RESP 16; TEMP 37.1; O2SAT 98; BMI 42.5
--- NOTE | 2022-08-23 19:49 | ED.SOB ---
HPI - SOB/Dyspnea General Chief Complaint: Dyspnea <STEFFANY Altamirano - Last Filed: 08/23/22 19:56> Stated Complaint: difficulty breathing and back pain <STEFFANY Altamirano - Last Filed: 08/23/22 19:56> Time Seen by Provider: 08/23/22 22:44 <STEFFANY Altamirano - Last Filed: 08/23/22 19:56> Source: patient <Felipa Crisostomo NP - Last Filed: 08/24/22 01:54> Mode of arrival: ambulatory <Felipa Crisostomo NP - Last Filed: 08/24/22 01:54> Limitations: no limitations <NERI Mishra Last Filed: 08/24/22 01:54> History of Present Illness HPI Narrative: 26-year-old female transitioning to male with a history of obesity, anxiety, depression, GERD presents with chest pain which began at 15:00 while at rest with radiation to the back. Patient reports it feels difficult to take a deep breath and has pain with deep breathing. No cough, fever, leg swelling or leg pain. Patient has also had headache. Pain is constant in the chest, not exertional with no associated diaphoresis or vomiting. No recent travel or sick contact. No family history of sudden cardiac . <Felipa Crisostomo NP - Last Filed: 08/24/22 01:54> Related Data Home Medications: Home Medications Medication Instructions Recorded Confirmed fluoxetine 10 mg capsule 10 mg PO DAILY 03/23/21 09/20/21 prazosin 2 mg capsule 2 mg PO BID 03/23/21 09/20/21 clonidine HCl 0.1 mg tablet 0.1 - 0.2 mg PO BEDTIME 12/07/21 famotidine 40 mg tablet 40 mg PO DAILY 12/07/21 fluoxetine 40 mg capsule 40 mg PO BEDTIME 12/07/21 lisdexamfetamine 10 mg capsule 10 mg PO DAILY 12/07/21 (Vyvanse) Previous Rx's Medication Instructions Recorded cholecalciferol (vitamin D3) 1,250 1,250 mcg PO 2XW 90 days #26 caps 09/20/21 mcg (50,000 unit) capsule sucralfate 1 gram tablet 1 g PO BID #60 tabs 10/08/21 norethindrone (contraceptive) 0.35 0.35 mg PO DAILY #28 tabs 10/31/21 mg tablet (Laureen) sennosides 8.6 mg tablet (Natural 8.6 mg PO BEDTIME constipation #30 11/13/21 Senna Laxative) tabs cyclobenzaprine 10 mg tablet 10 mg PO BEDTIME PRN muscle spasm 12/06/21 #7 tabs meclizine 25 mg tablet 25 mg PO DAILY PRN dizziness #14 12/06/21 tabs wheat dextrin 3 gram/3.5 gram oral 1 packet PO DAILY #28 ea 12/07/21 powder packet (Benefiber Clear Sugar Free(dextrin)) pantoprazole 40 mg tablet,delayed 40 mg PO DAILY #90 tabs 03/12/22 release ketorolac 0.4 % eye drops (Acular 1 drp ophthalmic-Right Q6H 4 days 05/24/22 LS) #5 mL tobramycin 0.3 % eye drops 1 drp ophthalmic-Right Q4H #5 mL 05/24/22 <STEFFANY Altamirano - Last Filed: 08/23/22 19:56> Allergies/Adverse Reactions: Allergies Allergy/AdvReac Type Severity Reaction Status Date / Time shellfish derived Allergy Intermediate HIVES Verified 08/23/22 19:51 [SHELLFISH DERIVED] SWOLLEN FACE [place] And Derivatives Allergy Unknown hives Verified 08/23/22 19:51 [CITRUS] SEAFOOD Allergy Unknown ANGIOEDEMA Uncoded 08/23/22 19:51 <STEFFANY Altamirano - Last Filed: 08/23/22 19:56> Review of Systems Review of Systems: Yes all other systems are reviewed and are negative <Felipa Crisostomo NP - Last Filed: 08/24/22 01:54> Constitutional: Constitutional: Reports no additional constitutional complaints, Denies chills, Denies fever(s), Reports headache(s) and Denies weakness <Felipa Crisostomo NP - Last Filed: 08/24/22 01:54> Eyes: Eyes: Reports no additional eye complaints and Denies change in vision <NERI Mishra Last Filed: 08/24/22 01:54> ENT: Reports system reviewed and no additional complaints, except as documented, Denies dizziness, Reports headache(s), Denies nasal congestion, Denies nasal discharge and Denies neck pain <Felipa Crisostomo NP - Last Filed: 08/24/22 01:54> Cardiovascular: Cardiovascular: Reports no additional cardiovascular complaints, Reports chest pain, Denies leg edema and Denies dyspnea <Felipa Crisostomo NP - Last Filed: 08/24/22 01:54> Respiratory: Respiratory: Reports no additional respiratory complaints, Denies cough and Denies dyspnea <Felipa Crisostomo NP - Last Filed: 08/24/22 01:54> Gastrointestinal: Gastrointestinal: Reports no additional gastrointestinal complaints, Denies abdominal pain, Denies diarrhea, Denies nausea and Denies vomiting <Felipa Crisostomo NP - Last Filed: 08/24/22 01:54> Genitourinary: Genitourinary: Reports no additional female genitourinary complaints and Denies urinary incontinence <Felipa Crisostomo NP - Last Filed: 08/24/22 01:54> Musculoskeletal: Musculoskeletal: Reports no additional musculoskeletal complaints, Reports back pain, Denies arthralgias, Denies joint swelling, Denies neck pain, Denies numbness and Denies tingling <Felipa Crisostomo NP - Last Filed: 08/24/22 01:54> Integumentary/Breasts: Skin/Breast: Reports system reviewed and no additional complaints, except as docu and Denies rash <Felipa Crisostomo NP - Last Filed: 08/24/22 01:54> Neurologic: Reports system reviewed and no additional complaints, except as documented, Denies Abnormal speech present, Denies dizziness, Reports headache(s), Denies numbness, Denies tingling and Denies weakness <Felipa Crisostomo NP - Last Filed: 08/24/22 01:54> PMF Past Medical History Attestation statement: The following information was validated with the patient. <NERI Mishra Last Filed: 08/24/22 01:54> Source: old records reviewed and nursing notes reviewed <NERI Mishra Last Filed: 08/24/22 01:54> Medical History: Medical History Blurred vision, bilateral Complaint of melena Epigastric pain Esophagitis Gastric ulcer Heartburn Lumbago with sciatica, left side Obesity (BMI 30-39.9) Positive depression screening Vitamin D deficiency <STEFFANY Altamirano - Last Filed: 08/23/22 19:56> Surgical History: Surgical History Hx of colonoscopy Hx of esophagogastroduodenoscopy <STEFFANY Altamirano - Last Filed: 08/23/22 19:56> Family History Family History: Family History Father History of renal dialysis Chronic kidney disease (CKD) <STEFFANY Altamirano - Last Filed: 08/23/22 19:56> Social History Social History: Social History Housing: Condominium Alcohol intake: former Patient Tobacco Use Status: Never used Tobacco Smoked in Last 30 Days: Yes e-Cigarette/Vaping Use: Currently Using Second Hand Smoke Exposure: Yes Use of substances other than those prescribed or required for medical reasons: No Substance Use Type: Marijuana Advance Directives: No Advance Directives Information Provided: No Patient : No Current occupational status: employed Current occupation: [employer] Sexual orientation: Lesbian/Lomas/Homosexual <STEFFANY Altamirano - Last Filed: 08/23/22 19:56> Physical Exam Vital Signs: Vital Signs: Last Vital Signs Temp 98.4 F 08/24/22 01:02 Pulse 69 08/24/22 01:08 Resp 230 H 08/24/22 01:02 BP 147/76 H 08/24/22 01:08 Pulse Ox 98 08/24/22 01:02 O2 Del Method 08/24/22 01:02 BMI result Body Mass Index 42.5 <STEFFANY Altamirano - Last Filed: 08/23/22 19:56> Vital Signs: Last Vital Signs Temp 98.4 F 08/24/22 01:02 Pulse 69 08/24/22 01:08 Resp 230 H 08/24/22 01:02 BP 147/76 H 08/24/22 01:08 Pulse Ox 98 08/24/22 01:02 O2 Del Method 08/24/22 01:02 BMI result Body Mass Index 42.5 <NERI Mishra Last Filed: 08/24/22 01:54> Const: General: cooperative, healthy appearing, comfortable and no acute distress <Felipa Crisostomo NP - Last Filed: 08/24/22 01:54> Orientation/consciousness: patient oriented x3 <Felipa Crisostomo NP - Last Filed: 08/24/22 01:54> Limitations: no limitations <Felipa Crisostomo NP - Last Filed: 08/24/22 01:54> HEENT: Head: Yes normal to inspection <NERI Mishra Last Filed: 08/24/22 01:54> Ears: hearing grossly normal bilaterally <Felipa Crisostomo NP - Last Filed: 08/24/22 01:54> General nose exam: Normal external nose present <NERI Mishra Last Filed: 08/24/22 01:54> Face and sinus: Yes normal facial exam <Felipa Crisostomo NP - Last Filed: 08/24/22 01:54> Mouth: Normal oral and palatal mucosa present <NERI Mishra Last Filed: 08/24/22 01:54> Throat: Yes posterior oropharynx normal <Felipa Crisostomo NP - Last Filed: 08/24/22 01:54> Eyes: General: appearance normal, both eyes and all related structures <Felipa Crisostomo NP - Last Filed: 08/24/22 01:54> Pupils: Equal, round and reactive pupils present <Felipa Crisostomo NP - Last Filed: 08/24/22 01:54> Neck: Neck: Yes normal visual inspection <NERI Mishra Last Filed: 08/24/22 01:54> Chest: Chest palpation & inspection: normal inspection of the chest <NERI Mishra Last Filed: 08/24/22 01:54> Resp: Effort & Inspection: normal respiratory effort <Felipa Crisostomo NP - Last Filed: 08/24/22 01:54> Auscultation: clear to auscultation bilaterally <Felipa Crisostomo NP - Last Filed: 08/24/22 01:54> Cardio: Rate: regular rate <Felipa Crisostomo NP - Last Filed: 08/24/22 01:54> Rhythm: regular rhythm <Felipa Crisostomo NP - Last Filed: 08/24/22 01:54> Peripheral pulses: Peripheral pulses 2+ throughout <Felipa Crisostomo NP - Last Filed: 08/24/22 01:54> GI: Inspection: Yes normal to inspection <Felipa Crisostomo NP - Last Filed: 08/24/22 01:54> Palpation (GI): Soft to palpation and nontender <Felipa Crisostomo NP - Last Filed: 08/24/22 01:54> Auscultation: normal bowel sounds <Felipa Crisostomo NP - Last Filed: 08/24/22 01:54> Back/Spine/Pelvis: Thoracic/Lumbar Spine: thoracic and lumbar spine normal to inspection <Felipa Crisostomo NP - Last Filed: 08/24/22 01:54> Skin: General skin exam: no rashes or lesions noted <Felipa Crisostomo NP - Last Filed: 08/24/22 01:54> Neuro: General: patient oriented x3, no focal motor deficits and normal sensation to monofilament <Felipa Crisostomo NP - Last Filed: 08/24/22 01:54> Cranial nerves: Yes Equal, round and reactive pupils present <Felipa Crisostomo NP - Last Filed: 08/24/22 01:54> Cognition (Neuro): normal cognition <Felipa Crisostomo NP - Last Filed: 08/24/22 01:54> Speech: No Abnormal speech present <Felipa Crisostomo NP - Last Filed: 08/24/22 01:54> Gait exam (Neuro): Normal gait present <Felipa Crisostomo NP - Last Filed: 08/24/22 01:54> Motor exam (neuro): 5/5 motor strength present throughout <Felipa Crisostomo NP - Last Filed: 08/24/22 01:54> Extrem: General: Yes normal to inspection, Yes no pedal edema and Yes no calf tenderness <Felipa Crisostomo NP - Last Filed: 08/24/22 01:54> Course Course Course Narrative: RME--26yo F (he/his proonouns) w/PMHx obesity, gastritis, c/o SOB, substernal CP, GASCA x today. Reports pain worsened w/breathing. Also reports feeling dizzy/lightheaded. Denies recent travel, pedal edema, abdominal pain nausea/vomiting, history of cough Notably hypertensive in triage, denies history of hypertension or taking BP medication. Lung sounds shallow EKG, labs, CXR, head CT, COVID 19/influenza/RSV testing ordered <STEFFANY Altamirano - Last Filed: 08/23/22 19:56> Reevaluation(s) Reevaluation #1: Initial troponin was 8. Repeat troponin 3 hours was 10. Initial EKG shows some ST changes when compared to old EKG. After blood pressure was improved without intervention a repeat EKG was obtained which shows ST depressions in leads 1 through V6. This appears new when compared to EKG from December of 2021. Patient will receive 324 mg of aspirin. Will trial nitroglycerin. Will discuss with Cardiology. Blood pressure improved without intervention. <Felipa Crisostomo NP - Last Filed: 08/24/22 01:54> Reevaluation #2: 0050-Second call to cardiology. Patient with pain down to 7/10 from 06/15 after 2 SL NTG <Felipa Crisostomo NP - Last Filed: 08/24/22 01:54> Reevaluation #3: 0100-spoke to Dr. Jackson. EKG changes may be blood pressure related. Recommended CT to rule out aortic dissection. Patient had IV contrast the past with no difficulty. Will obtain dissection study and admit patient for EKG changes, hypertensive urgency. <Felipa Crisostomo NP - Last Filed: 08/24/22 01:54> Additional Reevaluation(s): 0200-Sign out to Dr Gayle pending dissection study, admission to hospital. Medicine was made aware of patient. <Felipa Crisostomo NP - Last Filed: 08/24/22 01:54> Medications Administered Generic Name Dose Route Start Last Admin Trade Name Freq PRN Reason Stop Dose Admin Nitroglycerin 0.4 mg 08/24/22 00:16 08/24/22 00:46 Nitroglycerin 0.4 Mg Tab.Subl SUBLINGUAL 0.4 mg Q5MX3 PRN Administration chest paim Discontinued Medications Generic Name Dose Route Start Last Admin Trade Name Freq PRN Reason Stop Dose Admin Acetaminophen 975 mg 08/23/22 23:14 08/24/22 00:25 Acetaminophen 325 Mg Tablet PO 08/23/22 23:15 975 mg ONCE ONE Administration Aspirin 324 mg 08/24/22 00:15 08/24/22 00:25 Aspirin 81 Mg Tab.Chew PO 08/24/22 00:16 324 mg ONCE ONE Administration <STEFFANY Altamirano - Last Filed: 08/23/22 19:56> Medications Administered Generic Name Dose Route Start Last Admin Trade Name Freq PRN Reason Stop Dose Admin Nitroglycerin 0.4 mg 08/24/22 00:16 08/24/22 00:46 Nitroglycerin 0.4 Mg Tab.Subl SUBLINGUAL 0.4 mg Q5MX3 PRN Administration chest paim Discontinued Medications Generic Name Dose Route Start Last Admin Trade Name Freq PRN Reason Stop Dose Admin Acetaminophen 975 mg 08/23/22 23:14 08/24/22 00:25 Acetaminophen 325 Mg Tablet PO 08/23/22 23:15 975 mg ONCE ONE Administration Aspirin 324 mg 08/24/22 00:15 08/24/22 00:25 Aspirin 81 Mg Tab.Chew PO 08/24/22 00:16 324 mg ONCE ONE Administration <Felipa Crisostomo NP - Last Filed: 08/24/22 01:54> MDM - SOB/Dyspnea MDM Narrative Medical decision making narrative: 26-year-old female transitioning to male here with chest pain and back pain since 15:00 which is constant in nature with no associated diaphoresis or vomiting. Patient does have some discomfort with breathing with the pain. Will need labs, EKG, chest x-ray, COVID screen Consider PE, ACS <Felipa Crisostomo NP - Last Filed: 08/24/22 01:54> Medical Records Attestation: I reviewed the patient's medical records. <Felipa Crisostomo NP - Last Filed: 08/24/22 01:54> Lab Data Attestation: I reviewed the patient's lab results. <Felipa Crisostomo NP - Last Filed: 08/24/22 01:54> Result diagrams: : 08/23/22 20:01 08/23/22 20:01 <STEFFANY Altamirano - Last Filed: 08/23/22 19:56> Labs: Lab Results 08/23/22 08/23/22 08/23/22 Range/Units 20:01 20:01 20:01 WBC 9.7 (4.8-10.8) X10*3/uL RBC 5.27 (4.20-5.50) X10*6/uL Hgb 14.0 (12.0-16.0) g/dl Hct 42.4 (37.0-47.0) % MCV 80.5 (80.0-98.0) fL MCH 26.6 L (27.0-33.0) pg MCHC 33.0 (31.0-35.0) g/dl RDW 13.7 (11.0-16.0) % Plt Count 339 (160-400) X10*3/uL MPV 9.5 (9.4-12.3) fL Immature Gran % (Auto) 0.3 (0.0-0.4) % Neut % (Auto) 57.5 (45-73) % Lymph % (Auto) 34.7 (20-40) % Sargent % (Auto) 6.5 (2-11) % Eos % (Auto) 0.6 (0-4) % Baso % (Auto) 0.4 (0-2) % Lymph # (Auto) 3.4 (1.2-4.9) X10*3/uL Sargent # (Auto) 0.6 (0.1-1.2) X10*3/uL Eos # (Auto) 0.1 (0.0-0.4) X10*3/uL Baso # (Auto) 0.0 (0.0-0.2) X10*3/uL Abs Immat Gran (auto) 0.03 (0.00-0.03) X10*3/uL Absolute Neuts (auto) 5.6 (2.0-8.3) x10*3/uL Absolute Nucleated RBC 0.000 (0.0-0.012) X10*3/uL Nucleated RBC % (auto) 0.0 (0.0-0.2) /100WBC PT 11.5 (10.0-13.1) SEC INR 1.0 (0.9-1.1) D-Dimer High Sensitivty 207 NG/ML Sodium 141 (135-145) mmol/L Potassium 4.1 (3.3-5.1) mmol/L Chloride 108 (96-108) mmol/L Carbon Dioxide 21 L (22-29) mmol/L Anion Gap 16 (12-20) BUN 10 (9-16) mg/dL Creatinine 0.92 (0.5-1.4) mg/dL Estim Creat Clear Calc 110.6 Estimated GFR > 60 Random Glucose 166 H (60-115) mg/dL Calcium 9.4 (8.4-10.2) mg/dL Troponin I High Sens (<3.5-17.0) ng/L B-Natriuretic Peptide (<100) pg/mL Influenza Type A (PCR) (Negative) Influenza Type B (PCR) (Negative) RSV RNA Qual (PCR) (Negative) SARS-CoV-2 RNA (RT-PCR) (Negative) 08/23/22 08/23/22 08/23/22 Range/Units 20:01 20:01 20:01 WBC (4.8-10.8) X10*3/uL RBC (4.20-5.50) X10*6/uL Hgb (12.0-16.0) g/dl Hct (37.0-47.0) % MCV (80.0-98.0) fL MCH (27.0-33.0) pg MCHC (31.0-35.0) g/dl RDW (11.0-16.0) % Plt Count (160-400) X10*3/uL MPV (9.4-12.3) fL Immature Gran % (Auto) (0.0-0.4) % Neut % (Auto) (45-73) % Lymph % (Auto) (20-40) % Sargent % (Auto) (2-11) % Eos % (Auto) (0-4) % Baso % (Auto) (0-2) % Lymph # (Auto) (1.2-4.9) X10*3/uL Sargent # (Auto) (0.1-1.2) X10*3/uL Eos # (Auto) (0.0-0.4) X10*3/uL Baso # (Auto) (0.0-0.2) X10*3/uL Abs Immat Gran (auto) (0.00-0.03) X10*3/uL Absolute Neuts (auto) (2.0-8.3) x10*3/uL Absolute Nucleated RBC (0.0-0.012) X10*3/uL Nucleated RBC % (auto) (0.0-0.2) /100WBC PT (10.0-13.1) SEC INR (0.9-1.1) D-Dimer High Sensitivty NG/ML Sodium (135-145) mmol/L Potassium (3.3-5.1) mmol/L Chloride (96-108) mmol/L Carbon Dioxide (22-29) mmol/L Anion Gap (12-20) BUN (9-16) mg/dL Creatinine (0.5-1.4) mg/dL Estim Creat Clear Calc Estimated GFR Random Glucose (60-115) mg/dL Calcium (8.4-10.2) mg/dL Troponin I High Sens 8.3 (<3.5-17.0) ng/L B-Natriuretic Peptide < 10 (<100) pg/mL Influenza Type A (PCR) NEGATIVE (Negative) Influenza Type B (PCR) NEGATIVE (Negative) RSV RNA Qual (PCR) NEGATIVE (Negative) SARS-CoV-2 RNA (RT-PCR) NEGATIVE (Negative) 08/23/22 Range/Units 23:17 WBC (4.8-10.8) X10*3/uL RBC (4.20-5.50) X10*6/uL Hgb (12.0-16.0) g/dl Hct (37.0-47.0) % MCV (80.0-98.0) fL MCH (27.0-33.0) pg MCHC (31.0-35.0) g/dl RDW (11.0-16.0) % Plt Count (160-400) X10*3/uL MPV (9.4-12.3) fL Immature Gran % (Auto) (0.0-0.4) % Neut % (Auto) (45-73) % Lymph % (Auto) (20-40) % Sargent % (Auto) (2-11) % Eos % (Auto) (0-4) % Baso % (Auto) (0-2) % Lymph # (Auto) (1.2-4.9) X10*3/uL Sargent # (Auto) (0.1-1.2) X10*3/uL Eos # (Auto) (0.0-0.4) X10*3/uL Baso # (Auto) (0.0-0.2) X10*3/uL Abs Immat Gran (auto) (0.00-0.03) X10*3/uL Absolute Neuts (auto) (2.0-8.3) x10*3/uL Absolute Nucleated RBC (0.0-0.012) X10*3/uL Nucleated RBC % (auto) (0.0-0.2) /100WBC PT (10.0-13.1) SEC INR (0.9-1.1) D-Dimer High Sensitivty NG/ML Sodium (135-145) mmol/L Potassium (3.3-5.1) mmol/L Chloride (96-108) mmol/L Carbon Dioxide (22-29) mmol/L Anion Gap (12-20) BUN (9-16) mg/dL Creatinine (0.5-1.4) mg/dL Estim Creat Clear Calc Estimated GFR Random Glucose (60-115) mg/dL Calcium (8.4-10.2) mg/dL Troponin I High Sens 10.5 D (<3.5-17.0) ng/L B-Natriuretic Peptide (<100) pg/mL Influenza Type A (PCR) (Negative) Influenza Type B (PCR) (Negative) RSV RNA Qual (PCR) (Negative) SARS-CoV-2 RNA (RT-PCR) (Negative) <STEFFANY Altamirano - Last Filed: 08/23/22 19:56> Lab Results 08/23/22 08/23/22 08/23/22 Range/Units 20:01 20:01 20:01 WBC 9.7 (4.8-10.8) X10*3/uL RBC 5.27 (4.20-5.50) X10*6/uL Hgb 14.0 (12.0-16.0) g/dl Hct 42.4 (37.0-47.0) % MCV 80.5 (80.0-98.0) fL MCH 26.6 L (27.0-33.0) pg MCHC 33.0 (31.0-35.0) g/dl RDW 13.7 (11.0-16.0) % Plt Count 339 (160-400) X10*3/uL MPV 9.5 (9.4-12.3) fL Immature Gran % (Auto) 0.3 (0.0-0.4) % Neut % (Auto) 57.5 (45-73) % Lymph % (Auto) 34.7 (20-40) % Sargent % (Auto) 6.5 (2-11) % Eos % (Auto) 0.6 (0-4) % Baso % (Auto) 0.4 (0-2) % Lymph # (Auto) 3.4 (1.2-4.9) X10*3/uL Sargent # (Auto) 0.6 (0.1-1.2) X10*3/uL Eos # (Auto) 0.1 (0.0-0.4) X10*3/uL Baso # (Auto) 0.0 (0.0-0.2) X10*3/uL Abs Immat Gran (auto) 0.03 (0.00-0.03) X10*3/uL Absolute Neuts (auto) 5.6 (2.0-8.3) x10*3/uL Absolute Nucleated RBC 0.000 (0.0-0.012) X10*3/uL Nucleated RBC % (auto) 0.0 (0.0-0.2) /100WBC PT 11.5 (10.0-13.1) SEC INR 1.0 (0.9-1.1) D-Dimer High Sensitivty 207 NG/ML Sodium 141 (135-145) mmol/L Potassium 4.1 (3.3-5.1) mmol/L Chloride 108 (96-108) mmol/L Carbon Dioxide 21 L (22-29) mmol/L Anion Gap 16 (12-20) BUN 10 (9-16) mg/dL Creatinine 0.92 (0.5-1.4) mg/dL Estim Creat Clear Calc 110.6 Estimated GFR > 60 Random Glucose 166 H (60-115) mg/dL Calcium 9.4 (8.4-10.2) mg/dL Troponin I High Sens (<3.5-17.0) ng/L B-Natriuretic Peptide (<100) pg/mL Influenza Type A (PCR) (Negative) Influenza Type B (PCR) (Negative) RSV RNA Qual (PCR) (Negative) SARS-CoV-2 RNA (RT-PCR) (Negative) 08/23/22 08/23/22 08/23/22 Range/Units 20:01 20:01 20:01 WBC (4.8-10.8) X10*3/uL RBC (4.20-5.50) X10*6/uL Hgb (12.0-16.0) g/dl Hct (37.0-47.0) % MCV (80.0-98.0) fL MCH (27.0-33.0) pg MCHC (31.0-35.0) g/dl RDW (11.0-16.0) % Plt Count (160-400) X10*3/uL MPV (9.4-12.3) fL Immature Gran % (Auto) (0.0-0.4) % Neut % (Auto) (45-73) % Lymph % (Auto) (20-40) % Sargent % (Auto) (2-11) % Eos % (Auto) (0-4) % Baso % (Auto) (0-2) % Lymph # (Auto) (1.2-4.9) X10*3/uL Sargent # (Auto) (0.1-1.2) X10*3/uL Eos # (Auto) (0.0-0.4) X10*3/uL Baso # (Auto) (0.0-0.2) X10*3/uL Abs Immat Gran (auto) (0.00-0.03) X10*3/uL Absolute Neuts (auto) (2.0-8.3) x10*3/uL Absolute Nucleated RBC (0.0-0.012) X10*3/uL Nucleated RBC % (auto) (0.0-0.2) /100WBC PT (10.0-13.1) SEC INR (0.9-1.1) D-Dimer High Sensitivty NG/ML Sodium (135-145) mmol/L Potassium (3.3-5.1) mmol/L Chloride (96-108) mmol/L Carbon Dioxide (22-29) mmol/L Anion Gap (12-20) BUN (9-16) mg/dL Creatinine (0.5-1.4) mg/dL Estim Creat Clear Calc Estimated GFR Random Glucose (60-115) mg/dL Calcium (8.4-10.2) mg/dL Troponin I High Sens 8.3 (<3.5-17.0) ng/L B-Natriuretic Peptide < 10 (<100) pg/mL Influenza Type A (PCR) NEGATIVE (Negative) Influenza Type B (PCR) NEGATIVE (Negative) RSV RNA Qual (PCR) NEGATIVE (Negative) SARS-CoV-2 RNA (RT-PCR) NEGATIVE (Negative) 08/23/22 Range/Units 23:17 WBC (4.8-10.8) X10*3/uL RBC (4.20-5.50) X10*6/uL Hgb (12.0-16.0) g/dl Hct (37.0-47.0) % MCV (80.0-98.0) fL MCH (27.0-33.0) pg MCHC (31.0-35.0) g/dl RDW (11.0-16.0) % Plt Count (160-400) X10*3/uL MPV (9.4-12.3) fL Immature Gran % (Auto) (0.0-0.4) % Neut % (Auto) (45-73) % Lymph % (Auto) (20-40) % Sargent % (Auto) (2-11) % Eos % (Auto) (0-4) % Baso % (Auto) (0-2) % Lymph # (Auto) (1.2-4.9) X10*3/uL Sargent # (Auto) (0.1-1.2) X10*3/uL Eos # (Auto) (0.0-0.4) X10*3/uL Baso # (Auto) (0.0-0.2) X10*3/uL Abs Immat Gran (auto) (0.00-0.03) X10*3/uL Absolute Neuts (auto) (2.0-8.3) x10*3/uL Absolute Nucleated RBC (0.0-0.012) X10*3/uL Nucleated RBC % (auto) (0.0-0.2) /100WBC PT (10.0-13.1) SEC INR (0.9-1.1) D-Dimer High Sensitivty NG/ML Sodium (135-145) mmol/L Potassium (3.3-5.1) mmol/L Chloride (96-108) mmol/L Carbon Dioxide (22-29) mmol/L Anion Gap (12-20) BUN (9-16) mg/dL Creatinine (0.5-1.4) mg/dL Estim Creat Clear Calc Estimated GFR Random Glucose (60-115) mg/dL Calcium (8.4-10.2) mg/dL Troponin I High Sens 10.5 D (<3.5-17.0) ng/L B-Natriuretic Peptide (<100) pg/mL Influenza Type A (PCR) (Negative) Influenza Type B (PCR) (Negative) RSV RNA Qual (PCR) (Negative) SARS-CoV-2 RNA (RT-PCR) (Negative) <Felipa Crisostomo NP - Last Filed: 08/24/22 01:54> Imaging Data Chest x-ray: Attestation: I personally reviewed and interpreted this imaging study as follows: <Felipa Crisostomo NP - Last Filed: 08/24/22 01:54> Radiologist's impression: [address] [address] XRay Report Signed Patient: Lani Kumar MR#: [id number] : 1995 Acct:[id number] Age/Sex: 26 / F ADM Date: 08/23/22 Loc: HO.ED Attending Dr: Ordering Physician: Jessica Ferrera Date of Service: 08/23/22 Procedure(s): XR chest 1V Accession Number(s): [id number] cc: Jessica Ferrera~ EXAMINATION: XR chest 1V CLINICAL INFORMATION: Reason for Exam cp/sob COMPARISON: Chest radiograph? 02/24/2017 TECHNIQUE: One view of the chest FINDINGS: Clear lungs. No pneumothorax or pleural effusion. Normal cardiomediastinal silhouette. XR/XR chest 1V IMPRESSION: ? *? Clear lungs. <Felipa Crisostomo NP - Last Filed: 08/24/22 01:54> ECG Data Attestation: I personally reviewed and interpreted this ECG as follows: <Felipa Crisostomo NP - Last Filed: 08/24/22 01:54> ECG interpretation date: 08/24/22 <Felipa Crisostomo NP - Last Filed: 08/24/22 01:54> ECG interpretation time: 20:16 <Felipa Crisostomo NP - Last Filed: 08/24/22 01:54> Interpretation: Normal sinus rhythm with a rate of 93, normal [place], normal QRS, normal QT, ST depressions noted in leads 1 through 2 Repeat EKG at 1207 shows rate of [address] depressions leads 1, 2, V3-V6 <Felipa Crisostomo NP - Last Filed: 08/24/22 01:54> Discharge Plan Discharge Clinical Impression: Chest pain, Hypertensive urgency, Acute electrocardiogram changes <STEFFANY Altamirano - Last Filed: 08/23/22 19:56> Patient Disposition: Admitted As Inpatient <STEFFANY Altamirano - Last Filed: 08/23/22 19:56>
--- NOTE | 2022-08-23 19:50 | ECG_ITS ---
Test Reason : difficulty breathing Blood Pressure : / mmHG Vent. Rate : 093 BPM Atrial Rate : 093 BPM P-R Int : 138 ms QRS Dur : 078 ms QT Int : 316 ms P-R-T Axes : 045 014 185 degrees QTc Int : 392 ms Normal sinus rhythm RSR' or QR pattern in V1 suggests right ventricular conduction delay ST & T wave abnormality, consider inferolateral ischemia Abnormal ECG When compared with ECG of 05-DEC-2021 20:42, T wave inversion now evident in Lateral leads QT has shortened Referred By: Jessica Ferrera Electronically Signed By:KAR PINTO MD
[2022-08-23 19:54] VITALS: BP 142/69; PULSE 74
[2022-08-23 20:06] LABS: MANUAL DIFF FLAG NO
[2022-08-23 20:09] LABS: Basophils Percent Auto 0.4 % (0-2); Eosinophils Absolute Auto 0.1 X10*3/uL (0.0-0.4); Eosinophils Percent Auto 0.6 % (0-4); Hematocrit 42.4 % (37.0-47.0); Imm Gran Abs Auto 0.03 X10*3/uL (0.00-0.03); Imm Gran Pct Auto 0.3 % (0.0-0.4); Lymphocytes Absolute Auto 3.4 X10*3/uL (1.2-4.9); Lymphocytes Percent Auto 34.7 % (20-40); Mean Corpuscular Hemoglobin 26.6 pg (27.0-33.0); Mean Corpuscular Volume 80.5 fL (80.0-98.0); Mean Platelet Volume 9.5 fL (9.4-12.3); Monocytes Absolute Auto 0.6 X10*3/uL (0.1-1.2); Monocytes Percent Auto 6.5 % (2-11); Neutrophils Absolute Auto 5.6 x10*3/uL (2.0-8.3); Neutrophils Percent Auto 57.5 % (45-73); Platelet Count 339 X10*3/uL (160-400); Red Blood Count 5.27 X10*6/uL (4.20-5.50); Red Cell Distribution Width 13.7 % (11.0-16.0); White Blood Count 9.7 X10*3/uL (4.8-10.8)
[2022-08-23 20:20] LABS: Anion Gap 16 (12-20); Blood Urea Nitrogen 10 mg/dL (9-16); Calcium 9.4 mg/dL (8.4-10.2); Carbon Dioxide 21 mmol/L (22-29); Chloride 108 mmol/L (96-108); Creatinine Clr Calc Pharmacy 110.6; Estimated Glomerular Filt Rate > 60; Glucose Random 166 mg/dL (60-115); Potassium 4.1 mmol/L (3.3-5.1); Sodium 141 mmol/L (135-145)
[2022-08-23 20:25] LABS: Prothrombin Time 11.5 SEC (10.0-13.1)
[2022-08-23 20:27] LABS: D Dimer High Sensitivity 207 NG/ML
[2022-08-23 20:28] LABS: B Type Natriuretic Peptide < 10 pg/mL (<100)
[2022-08-23 20:29] LABS: Troponin-I High Sensitivity 8.3 ng/L (<3.5-17.0)
[2022-08-23 20:45] LABS: Influenza A PCR NEGATIVE (Negative); Influenza B PCR NEGATIVE (Negative); Resp Syncy Virus RNA Qual PCR NEGATIVE (Negative); SARS COV2 PCR INHOUSE NEGATIVE (Negative)
[2022-08-23 23:21] VITALS: BP 151/77; PULSE 73; RESP 19; TEMP 36.9; O2SAT 96
[2022-08-23 23:53] LABS: Troponin-I High Sensitivity 10.5 ng/L (<3.5-17.0)
[2022-08-24] VITALS (14 sets, daily range): BP systolic 114–168; BP diastolic 60–93; PULSE 69–93; RESP 17–230; TEMP 36.2–37.1; O2SAT 91–98
[2022-08-24] MEDS: Aspirin 81 MG TAB.CHEW 324 MG PO (00:25)
[2022-08-24] MEDS: Acetaminophen 325 MG TABLET 975 MG PO (00:25)
[2022-08-24] MEDS: Nitroglycerin 0.4 MG TAB.SUBL SUBLINGUAL ×5 (00:30→18:56)
--- NOTE | 2022-08-24 00:56 | PC.NURSE ---
Nitro 0.4 mg subl x2 doses administered with minimal improvement in left chest pain.
--- NOTE | 2022-08-24 01:27 | PC.NURSE ---
Pt's a/o x5, has equal strength upper/lower extremities. Pt is able to ambulate and he is independent. PT is currently taking testosterone hormone replacement. PT was connected to the monitor and it shows abnormal QRS, but his HR is normal. Pt' s BP was elevated for her age. provider is notified. will continue to monitor.
[2022-08-24 02:02] LABS: Appearance Urine Clear; Color Urine Yellow; Glucose Urine UA 100 mg/dL (Negative); Leukocyte Esterase Urine Negative (Negative); Nitrite Urine Negative (Negative); PH 5.5 (5.0-9.0); Specific Gravity - Urine >= 1.030 (1.005-1.025); Urine Blood Negative (Negative); Urine Ketones Trace mg/dL (Negative); Urine Protein Trace mg/dL (Neg-Trace)
[2022-08-24 02:04] LABS: UPreg QC Valid YES; Urine Pregnancy NEGATIVE (NEGATIVE)
[2022-08-24] MEDS: iohexoL 350 MG/ML 100 ML INFUS..BTL IV (02:40)
[2022-08-24] MEDS: Morphine Sulfate 4 MG/ML CARTRIDGE IVPUSH (02:52)
--- NOTE | 2022-08-24 04:49 | P.HPHOSP_ITS ---
History of Present Illness Date of Service: 08/24/22 Chief Complaint: Chest Pain This is a 26year old in transition from female to male, with pertinent history of mood disorder, insomnia, gastroesophageal reflux disease who presents to the emergency department for evaluation of chest pain. Patient states she had sudden-onset chest pain, midsternal around 15:00 when she was at work. It did not relieve with rest, did not exacerbate with movement. Patient states it radiated to the back. Worsened with deep inspiration and was relieved in the ER with morphine. No history of similar pain in the past. No history of high blood pressure. Patient denies palpitations, shortness of breath, fever, chills, nausea, vomiting, abdominal pain, changes in urinary or bowel habits. No history of trauma or lifting anything heavy. No chest tenderness with palpation. In the ER, patient's blood pressure elevated with initial blood pressure 202/112. EKG with ST depression in anterolateral leads. Cardiology was cons ulted. Review of Systems Cardiovascular: Cardiovascular: Reports chest pain Respiratory: Respiratory: Reports no additional respiratory complaints Gastrointestinal: Gastrointestinal: Reports no additional gastrointestinal complaints Genitourinary: Genitourinary: Reports no additional female genitourinary complaints [facility] Medical History Blurred vision, bilateral Complaint of melena Epigastric pain Esophagitis Gastric ulcer Heartburn Lumbago with sciatica, left side Obesity (BMI 30-39.9) Positive depression screening Vitamin D deficiency Family History Father History of renal dialysis Chronic kidney disease (CKD) Surgical History Hx of colonoscopy Hx of esophagogastroduodenoscopy Social History Housing: Condominium Alcohol intake: former Patient Tobacco Use Status: Never used Tobacco Smoked in Last 30 Days: Yes e-Cigarette/Vaping Use: Currently Using Second Hand Smoke Exposure: Yes Use of substances other than those prescribed or required for medical reasons: No Substance Use Type: Marijuana Advance Directives: No Advance Directives Information Provided: No Patient : No Current occupational status: employed 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 [employer] Sexual orientation: Lesbian/Lomas/Homosexual Meds Allergies Allergy/AdvReac Type Severity Reaction Status Date / Time shellfish derived Allergy Intermediate HIVES Verified 08/23/22 19:51 [SHELLFISH DERIVED] SWOLLEN FACE Iroquois And Derivatives Allergy Unknown hives Verified 08/23/22 19:51 [CITRUS] SEAFOOD Allergy Unknown ANGIOEDEMA Uncoded 08/23/22 19:51 Active Medications: Current Medications Acetaminophen (Acetaminophen 325 Mg Tablet) 650 mg PO Q6H PRN PRN Reason: Pain, Mild (Pain Scale 1-3) Melatonin (Melatonin 3 Mg Tablet) 6 mg PO BEDTIME PRN PRN Reason: Insomnia Nitroglycerin (Nitroglycerin 0.4 Mg Tab.Subl) 0.4 mg SUBLINGUAL Q5MX3 PRN PRN Reason: chest paim Last Admin: 08/24/22 00:46 Dose: 0.4 mg Nitroglycerin (Nitroglycerin 0.4 Mg Tab.Subl) 0.4 mg SUBLINGUAL Q5MX3 PRN PRN Reason: Chest Pain Ondansetron HCl (Ondansetron Hcl 4 Mg/2 Ml Vial) 4 mg IVPUSH Q8H PRN PRN Reason: Nausea and Vomiting Pharmacy Consult (Consult Rx Perform Med Rec) 1 each MISCELLANE ONCE PRN PRN Reason: Consult order Sodium Chloride (0.9 % Sodium Chloride Flush 3 Ml Syringe) [facility] Medication Instructions Recorded Confirmed Last Taken Type fluoxetine 10 mg capsule 10 mg PO DAILY 03/23/21 09/20/21 Unknown History prazosin 2 mg capsule 2 mg PO BID 03/23/21 09/20/21 Unknown History clonidine HCl 0.1 mg tablet 0.1 - 0.2 mg PO BEDTIME 12/07/21 Unknown History famotidine 40 mg tablet 40 mg PO DAILY 12/07/21 Unknown History fluoxetine 40 mg capsule 40 mg PO BEDTIME 12/07/21 Unknown History lisdexamfetamine 10 mg capsule 10 mg PO DAILY 12/07/21 Unknown History (Joanna) Physical Exam Vital Signs and Narrative: Vital Signs: Last Vital Signs Temp 98.2 F 08/24/22 04:23 Pulse 71 08/24/22 04:23 Resp 19 08/24/22 04:23 BP 134/73 08/24/22 04:23 Pulse Ox 98 08/24/22 04:23 O2 Del Method 08/24/22 04:23 BMI result Body Mass Index 42.5 Young person lying in bed in no distress Chest: Nontender, Neck supple, no JVD Regular rate and rhythm, S1-S2 heard Regular breath sounds bilaterally, no wheezing or crackles appreciated Abdomen soft nontender, no guarding, no rigidity Patient is awake, alert and oriented to self, place, time and person ; no focal motor deficit Psych: Normal mood No pedal edema Results Labs CBC and Chem 7: 08/23/22 20:01 08/23/22 20:01 Labs: Laboratory Results - last 24 hr 08/23/22 08/23/22 08/23/22 20:01 20:01 20:01 MCV 80.5 MCH 26.6 L MCHC 33.0 RDW 13.7 Plt Count 339 MPV 9.5 Immature Gran % (Auto) 0.3 Neut % (Auto) 57.5 Lymph % (Auto) 34.7 [place] % (Auto) 6.5 Eos % (Auto) 0.6 Baso % (Auto) 0.4 Lymph # (Auto) 3.4 [place] # (Auto) 0.6 Eos # (Auto) 0.1 Baso # (Auto) 0.0 Abs Immat Gran (auto) 0.03 Absolute Neuts (auto) 5.6 Absolute Nucleated RBC 0.000 Nucleated RBC % (auto) 0.0 PT 11.5 INR 1.0 D-Dimer High Sensitivty 207 Anion Gap 16 Estim Creat Clear Calc 110.6 Estimated GFR > 60 Random Glucose 166 H Calcium 9.4 Troponin I High Sens B-Natriuretic Peptide Urine Color Urine Appearance Urine pH Ur Specific [place] Urine Protein Urine Glucose (UA) Urine Ketones Urine Blood Urine Nitrite Ur Leukocyte Esterase Urine Test Influenza Type A (PCR) Influenza Type B (PCR) RSV RNA Qual (PCR) SARS-CoV-2 RNA (RT-PCR) 08/23/22 08/23/22 08/23/22 20:01 20:01 20:01 MCV MCH MCHC RDW Plt Count MPV Immature Gran % (Auto) Neut % (Auto) Lymph % (Auto) [place] % (Auto) Eos % (Auto) Baso % (Auto) Lymph # (Auto) [place] # (Auto) Eos # (Auto) Baso # (Auto) Abs Immat Gran (auto) Absolute Neuts (auto) Absolute Nucleated RBC Nucleated RBC % (auto) PT INR D-Dimer High Sensitivty Anion Gap Estim Creat Clear Calc Estimated GFR Random Glucose Calcium Troponin I High Sens 8.3 B-Natriuretic Peptide < 10 Urine Color Urine Appearance Urine pH Ur Specific [place] Urine Protein Urine Glucose (UA) Urine Ketones Urine Blood Urine Nitrite Ur Leukocyte Esterase Urine Test Influenza Type A (PCR) NEGATIVE Influenza Type B (PCR) NEGATIVE RSV RNA Qual (PCR) NEGATIVE SARS-CoV-2 RNA (RT-PCR) NEGATIVE 08/23/22 08/24/22 08/24/22 23:17 01:53 01:53 MCV MCH MCHC RDW Plt Count MPV Immature Gran % (Auto) Neut % (Auto) Lymph % (Auto) [place] % (Auto) Eos % (Auto) Baso % (Auto) Lymph # (Auto) [place] # (Auto) Eos # (Auto) Baso # (Auto) Abs Immat Gran (auto) Absolute Neuts (auto) Absolute Nucleated RBC Nucleated RBC % (auto) PT INR D-Dimer High Sensitivty Anion Gap Estim Creat Clear Calc Estimated GFR Random Glucose Calcium Troponin I High Sens 10.5 D B-Natriuretic Peptide Urine Color Yellow Urine Appearance Clear Urine pH 5.5 Ur Specific [place] >= 1.030 H Urine Protein Trace Urine Glucose (UA) 100 H Urine Ketones Trace Urine Blood Negative Urine Nitrite Negative Ur Leukocyte Esterase Negative Urine Test NEGATIVE Influenza Type A (PCR) Influenza Type B (PCR) RSV RNA Qual (PCR) SARS-CoV-2 RNA (RT-PCR) Imaging Radiologist's Impressions: Impressions Chest X-Ray 08/23/22 20:09 IMPRESSION: * Clear lungs. Head CT 08/23/22 20:16 IMPRESSION: No acute intracranial abnormality including hemorrhage, mass effect, hydrocephalus, or acute territorial edematous infarction. Chest CTA 08/24/22 02:36 IMPRESSION: 1. No evidence of aortic dissection or aneurysm. 2. No evidence of pulmonary embolism. 3. No acute findings within the chest. 4. Hepatic steatosis. Assessment and Plan (1) Chest pain: Status: Acute (2) Hypertensive urgency: Status: Acute (3) Obesity (BMI 30-39.9): Status: Acute (4) Mood disorder: Status: Acute (5) Insomnia: Status: Acute Plan This is a 26year old in transition from female to male, with pertinent history of mood disorder, insomnia, gastroesophageal reflux disease who presents to the emergency department for evaluation of chest pain. #. Atypical chest pain #. Hypertensive urgency/emergency -will admit with cardiac monitor technician for observation. Troponin in am. EKG with ST depression. Cardiology consulted from the ER, appreciate assistance. Will obtain echo to rule out pericarditis as the cause of pleuritic chest discomfort. Blood pressure appropriately lowered with morphine, nitroglycerin in the ER. Normalize slowly over 24 hours. CTA without dissection. Monitor blood pressure and may need antihypertensive at discharge. #. Insomnia -on stable dose of clonidine. No missed doses #. Mood disorder -contine home po medications #. Female to male transition -on weekly testosterone DVT prophylaxis: None. Patient is ambulatory Full code Cardiac diet Quality Stroke Does the patient have a stroke diagnosis?: No VTE Prior VTE?: No VTE Risk Level:: Medical - low VTE Device Contraindication: Treatment Not Indicated VTE Drug Contraindication: Treatment Not Indicated
--- NOTE | 2022-08-24 07:13 | ECG_ITS ---
Test Reason : SOB Blood Pressure : / mmHG Vent. Rate : 075 BPM Atrial Rate : 075 BPM P-R Int : 142 ms QRS Dur : 088 ms QT Int : 358 ms P-R-T Axes : 055 026 205 degrees QTc Int : 399 ms Normal sinus rhythm RSR' or QR pattern in V1 suggests right ventricular conduction delay ST & T wave abnormality, consider inferior ischemia ST & T wave abnormality, consider anterolateral ischemia Abnormal ECG When compared with ECG of 23-AUG-2022 20:16, Inverted T waves have replaced nonspecific T wave abnormality in Anterior leads Referred By: Regina Bridges Electronically Signed By:KAR PINTO MD
[2022-08-24 08:04] LABS: MANUAL DIFF FLAG NO
[2022-08-24 08:07] LABS: Basophils Percent Auto 0.6 % (0-2); Eosinophils Absolute Auto 0.1 X10*3/uL (0.0-0.4); Eosinophils Percent Auto 1.1 % (0-4); Hematocrit 42.1 % (37.0-47.0); Hemoglobin 13.8 g/dl (12.0-16.0); Imm Gran Abs Auto 0.02 X10*3/uL (0.00-0.03); Imm Gran Pct Auto 0.3 % (0.0-0.4); Lymphocytes Absolute Auto 2.6 X10*3/uL (1.2-4.9); Lymphocytes Percent Auto 38.9 % (20-40); Mean Corpuscular HGB Conc 32.8 g/dl (31.0-35.0); Mean Corpuscular Hemoglobin 26.7 pg (27.0-33.0); Mean Corpuscular Volume 81.6 fL (80.0-98.0); Mean Platelet Volume 9.3 fL (9.4-12.3); Monocytes Absolute Auto 0.4 X10*3/uL (0.1-1.2); Monocytes Percent Auto 5.3 % (2-11); Neutrophils Absolute Auto 3.6 x10*3/uL (2.0-8.3); Neutrophils Percent Auto 53.8 % (45-73); Platelet Count 314 X10*3/uL (160-400); Red Blood Count 5.16 X10*6/uL (4.20-5.50); Red Cell Distribution Width 13.7 % (11.0-16.0); White Blood Count 6.7 X10*3/uL (4.8-10.8)
[2022-08-24 08:20] LABS: Anion Gap 15 (12-20); Blood Urea Nitrogen 8 mg/dL (9-16); Calcium 9.5 mg/dL (8.4-10.2); Carbon Dioxide 24 mmol/L (22-29); Chloride 105 mmol/L (96-108); Estimated Glomerular Filt Rate > 60; Glucose Random 182 mg/dL (60-115); Potassium 4.1 mmol/L (3.3-5.1); Sodium 140 mmol/L (135-145)
[2022-08-24] MEDS: 0.9 % Sodium Chloride Flush 3 ML SYRINGE IVFLUSH ×2 (08:20→20:35)
--- NOTE | 2022-08-24 08:29 | PC.NURSE ---
Addendum entered by Ady Chacon 08/24/22 10:10: Provider made aware of BP Original Note: Eneida Lara made aware of BP
[2022-08-24 08:30] LABS: Troponin-I High Sensitivity 5.1 ng/L (<3.5-17.0)
[2022-08-24 09:05] LABS: C Reactive Protein 1.82 mg/dL (< or = 0.50)
--- NOTE | 2022-08-24 09:07 | PHA.MEDREC ---
MED REC COMPLETE, NO ISSUES. PATIENT ONLY TAKING 50 MG OF SERTRALINE HAS NOT YET TITRATED UP YET Pharmacy Consult ? Medication Reconciliation Pharmacy has completed the medication reconciliation.
--- NOTE | 2022-08-24 09:13 | PC.NURSE ---
Pharmacy called for med rec
[2022-08-24 09:49] LABS: Erythrocyte Sedimentation Rate 9 MM/HR (0-20)
--- NOTE | 2022-08-24 11:20 | PM.EVENT ---
Event Note Date of Service: 08/24/22 Event Note: Patient was seen and evaluated this morning Still reporting chest pain and epigastric pain Blood pressure better controlled Elevated blood pressures could be related to recent testosterone usage EKG changes likely from hypertensive urgency, to start labetalol amlodipine Check metanephrines, aldosterone, cortisol levels Pending cardiology evaluation Will monitor patient overnight for blood pressure management
[2022-08-24] MEDS: Famotidine/PF 20 MG/2 ML VIAL IVPUSH (11:45)
[2022-08-24] MEDS: amLODIPine Besylate 5 MG TABLET PO (11:45)
[2022-08-24] MEDS: Omeprazole 20 MG CAPSULE.DR PO ×2 (11:45→16:32)
[2022-08-24] MEDS: Labetalol HCL 100 MG TABLET PO ×2 (12:03→20:34)
--- NOTE | 2022-08-24 12:52 | PM.CNCAR ---
History of Present Illness History of Present Illness Date of Service: 08/24/22 Requesting physician: Randy Vilchis Consult reason: other (Hypertensive urgency) Chief complaint: CHEST PAIN Narrative: I was consulted to see Jw cardiology consultation today for precordial chest discomfort and marked hypertension. Patient says he has not had any prior history of hypertension came to the hospital because he developed back pain and then precordial chest discomfort she discussed with pressure associated shortness of breath. On admission his blood pressure was significantly elevated with systolic blood pressure of 202/122. He denies any prior history of hypertension although recorded in the chart in December she had similar markedly elevated blood pressure. Not on any therapy. In April he was started on therapy for transition from being of woman to a man and has been on testosterone therapy and other therapies. He has not any other cardiac meds. Has never had any prior cardiac issues. His troponins were negative pace EKG showed some T-wave inversion changes. His anterior chest pressure has improved. He does not have shortness of breath. He does have consistent left lower thoracic cage discomfort which she is grabbing onto. His chest CT was negative for any dissection. His troponins are negative. Review of Systems Constitutional: Constitutional: Reports no additional constitutional complaints Eyes: Eyes: Reports no additional eye complaints Cardiovascular: Cardiovascular: Reports chest pain, Denies leg edema, Denies lightheadedness, Denies Loss of Consciousness, Denies palpitations and Reports dyspnea Respiratory: Respiratory: Reports no additional respiratory complaints and Reports dyspnea Gastrointestinal: Gastrointestinal: Reports no additional gastrointestinal complaints Endocrine: Endocrine: Denies palpitations PMFSH Past Medical History Medical History Blurred vision, bilateral Complaint of melena Epigastric pain Esophagitis Gastric ulcer Heartburn Lumbago with sciatica, left side Obesity (BMI 30-39.9) Positive depression screening Vitamin D deficiency Family History Family History Father History of renal dialysis Chronic kidney disease (CKD) Surgical History Surgical History Hx of colonoscopy Hx of esophagogastroduodenoscopy Social History Social History Housing: Condominium Alcohol intake: former Patient Tobacco Use Status: Never used Tobacco Smoked in Last 30 Days: Yes e-Cigarette/Vaping Use: Currently Using Second Hand Smoke Exposure: Yes Use of substances other than those prescribed or required for medical reasons: No Substance Use Type: Marijuana Advance Directives: No Advance Directives Information Provided: No Patient : No Current occupational status: employed 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 [employer] Sexual orientation: Lesbian/Lomas/Homosexual Meds Allergies Allergy/AdvReac Type Severity Reaction Status Date / Time shellfish derived Allergy Intermediate HIVES Verified 08/23/22 19:51 [SHELLFISH DERIVED] SWOLLEN FACE [place] And Derivatives Allergy Unknown hives Verified 08/23/22 19:51 [CITRUS] SEAFOOD Allergy Unknown ANGIOEDEMA Uncoded 08/23/22 19:51 Active Medications: Current Medications Acetaminophen (Acetaminophen 325 Mg Tablet) 650 mg PO Q6H PRN PRN Reason: Pain, Mild (Pain Scale 1-3) Amlodipine Besylate (Amlodipine Besylate 5 Mg Tablet) 5 mg PO DAILY [facility]; Protocol Last Admin: 08/24/22 11:45 Dose: 5 mg Clonidine HCl (Clonidine Hcl 0.1 Mg Tablet) 0.1 mg PO BEDTIME [facility]; Protocol Labetalol HCl (Labetalol Hcl 100 Mg Tablet) 100 mg PO BID [facility]; Protocol Last Admin: 08/24/22 12:03 Dose: 100 mg Melatonin (Melatonin 3 Mg Tablet) 6 mg PO BEDTIME PRN PRN Reason: Insomnia Mirtazapine (Mirtazapine 15 Mg Tablet) 15 mg PO BEDTIME [facility] Nitroglycerin (Nitroglycerin 0.4 Mg Tab.Subl) 0.4 mg SUBLINGUAL Q5MX3 PRN PRN Reason: chest paim Last Admin: 08/24/22 00:46 Dose: 0.4 mg Nitroglycerin (Nitroglycerin 0.4 Mg Tab.Subl) 0.4 mg SUBLINGUAL Q5MX3 PRN PRN Reason: Chest Pain Omeprazole (Omeprazole 20 Mg Capsule.Dr) 20 mg PO BID@0630,1630 [facility] Last Admin: 08/24/22 11:45 Dose: 20 mg Ondansetron HCl (Ondansetron Hcl 4 Mg/2 Ml Vial) 4 mg IVPUSH Q8H PRN PRN Reason: Nausea and Vomiting Pharmacy Consult (Consult Rx Perform Med Rec) 1 each MISCELLANE ONCE PRN PRN Reason: Consult order Pharmacy Consult (Consult Rx Perform Med Rec) 1 each MISCELLANE ONCE PRN PRN Reason: Consult order Sertraline HCl (Sertraline Hcl 50 Mg Tablet) 50 mg PO DAILY [facility] Sodium Chloride (0.9 % Sodium Chloride Flush 3 Ml Syringe) 3 ml IVFLUSH QSHIFT [facility] Last Admin: 08/24/22 08:20 Dose: 3 ml Home Medications Medication Instructions Recorded Confirmed Last Taken Type clonidine HCl 0.1 mg tablet 0.1 mg PO BEDTIME 12/07/21 08/24/22 Unknown History mirtazapine 15 mg tablet 1 tab PO BEDTIME 08/24/22 08/24/22 Unknown History pantoprazole 40 mg tablet,delayed 40 mg PO DAILY@0630 08/24/22 08/24/22 Unknown History release sertraline 50 mg tablet 50 mg PO DAILY 08/24/22 08/24/22 Unknown History testosterone cypionate 200 mg/mL 0.25 ml subcut WE@1000 08/24/22 08/24/22 Unknown History intramuscular oil Physical Exam Vital Signs: Vital Signs: Last Vital Signs Temp 98.1 F 08/24/22 10:00 Pulse 80 08/24/22 10:00 Resp 20 08/24/22 10:00 BP 161/84 H 08/24/22 10:00 Pulse Ox 97 08/24/22 10:00 O2 Del Method 08/24/22 10:00 BMI result Body Mass Index 42.5 Const: General: cooperative, comfortable, no acute distress, alert and awake Nutritional Appearance: obese morbidly obese Orientation/consciousness: patient oriented x3 Limitations: no limitations HEENT: Head: Yes normocephalic and Yes atraumatic Neck: Neck: Yes trachea midline, Yes supple and Yes no JVD Resp: Effort & Inspection: normal respiratory effort Auscultation: clear to auscultation bilaterally Cardio: Jugular venous distension: no JVD Palpation: normal PMI Rate: regular rate Rhythm: regular rhythm Heart sounds: S1 normal heart sound present, S2 normal heart sound present, no click, no gallops, no murmurs and no rubs GI: Percussion: Yes normal to percussion Skin: General skin exam: no rashes or lesions noted Neuro: General: patient oriented x3 and no focal motor deficits Extrem: General: Yes no clubbing, cyanosis or edema Objective Labs and Meds Result diagrams: 08/24/22 07:57 08/24/22 07:57 Lab results: Laboratory Results - last 24 hr 08/23/22 08/23/22 08/23/22 20:01 20:01 20:01 WBC 9.7 RBC 5.27 Hgb 14.0 Hct 42.4 MCV 80.5 MCH 26.6 L MCHC 33.0 RDW 13.7 Plt Count 339 MPV 9.5 Immature Gran % (Auto) 0.3 Neut % (Auto) 57.5 Lymph % (Auto) 34.7 [place] % (Auto) 6.5 Eos % (Auto) 0.6 Baso % (Auto) 0.4 Lymph # (Auto) 3.4 [place] # (Auto) 0.6 Eos # (Auto) 0.1 Baso # (Auto) 0.0 Abs Immat Gran (auto) 0.03 Absolute Neuts (auto) 5.6 Absolute Nucleated RBC 0.000 Nucleated RBC % (auto) 0.0 ESR PT 11.5 INR 1.0 D-Dimer High Sensitivty 207 Sodium 141 Potassium 4.1 Chloride 108 Carbon Dioxide 21 L Anion Gap 16 BUN 10 Creatinine 0.92 Estim Creat Clear Calc 110.6 Estimated GFR > 60 Random Glucose 166 H Calcium 9.4 Troponin I High Sens C-Reactive Protein B-Natriuretic Peptide Urine Color Urine Appearance Urine pH Ur Specific [place] Urine Protein Urine Glucose (UA) Urine Ketones Urine Blood Urine Nitrite Ur Leukocyte Esterase Urine Test Influenza Type A (PCR) Influenza Type B (PCR) RSV RNA Qual (PCR) SARS-CoV-2 RNA (RT-PCR) 08/23/22 08/23/22 08/23/22 20:01 20:01 20:01 WBC RBC Hgb Hct MCV MCH MCHC RDW Plt Count MPV Immature Gran % (Auto) Neut % (Auto) Lymph % (Auto) [place] % (Auto) Eos % (Auto) Baso % (Auto) Lymph # (Auto) [place] # (Auto) Eos # (Auto) Baso # (Auto) Abs Immat Gran (auto) Absolute Neuts (auto) Absolute Nucleated RBC Nucleated RBC % (auto) ESR PT INR D-Dimer High Sensitivty Sodium Potassium Chloride Carbon Dioxide Anion Gap BUN Creatinine Estim Creat Clear Calc Estimated GFR Random Glucose Calcium Troponin I High Sens 8.3 C-Reactive Protein B-Natriuretic Peptide < 10 Urine Color Urine Appearance Urine pH Ur Specific [place] Urine Protein Urine Glucose (UA) Urine Ketones Urine Blood Urine Nitrite Ur Leukocyte Esterase Urine Test Influenza Type A (PCR) NEGATIVE Influenza Type B (PCR) NEGATIVE RSV RNA Qual (PCR) NEGATIVE SARS-CoV-2 RNA (RT-PCR) NEGATIVE 08/23/22 08/24/22 08/24/22 23:17 01:53 01:53 WBC RBC Hgb Hct MCV MCH MCHC RDW Plt Count MPV Immature Gran % (Auto) Neut % (Auto) Lymph % (Auto) [place] % (Auto) Eos % (Auto) Baso % (Auto) Lymph # (Auto) [place] # (Auto) Eos # (Auto) Baso # (Auto) Abs Immat Gran (auto) Absolute Neuts (auto) Absolute Nucleated RBC Nucleated RBC % (auto) ESR PT INR D-Dimer High Sensitivty Sodium Potassium Chloride Carbon Dioxide Anion Gap BUN Creatinine Estim Creat Clear Calc Estimated GFR Random Glucose Calcium Troponin I High Sens 10.5 D C-Reactive Protein B-Natriuretic Peptide Urine Color Yellow Urine Appearance Clear Urine pH 5.5 Ur Specific [place] >= 1.030 H Urine Protein Trace Urine Glucose (UA) 100 H Urine Ketones Trace Urine Blood Negative Urine Nitrite Negative Ur Leukocyte Esterase Negative Urine Test NEGATIVE Influenza Type A (PCR) Influenza Type B (PCR) RSV RNA Qual (PCR) SARS-CoV-2 RNA (RT-PCR) 08/24/22 08/24/22 08/24/22 07:57 07:57 07:57 WBC 6.7 RBC 5.16 Hgb 13.8 Hct 42.1 MCV 81.6 MCH 26.7 L MCHC 32.8 RDW 13.7 Plt Count 314 MPV 9.3 L Immature Gran % (Auto) 0.3 Neut % (Auto) 53.8 Lymph % (Auto) 38.9 [place] % (Auto) 5.3 Eos % (Auto) 1.1 Baso % (Auto) 0.6 Lymph # (Auto) 2.6 [place] # (Auto) 0.4 Eos # (Auto) 0.1 Baso # (Auto) 0.0 Abs Immat Gran (auto) 0.02 Absolute Neuts (auto) 3.6 Absolute Nucleated RBC 0.000 Nucleated RBC % (auto) 0.0 ESR PT INR D-Dimer High Sensitivty Sodium 140 Potassium 4.1 Chloride 105 Carbon Dioxide 24 Anion Gap 15 BUN 8 L Creatinine 0.87 Estim Creat Clear Calc 117.0 Estimated GFR > 60 Random Glucose 182 H Calcium 9.5 Troponin I High Sens 5.1 C-Reactive Protein 1.82 H B-Natriuretic Peptide Urine Color Urine Appearance Urine pH Ur Specific [place] Urine Protein Urine Glucose (UA) Urine Ketones Urine Blood Urine Nitrite Ur Leukocyte Esterase Urine Test Influenza Type A (PCR) Influenza Type B (PCR) RSV RNA Qual (PCR) SARS-CoV-2 RNA (RT-PCR) 08/24/22 07:57 WBC RBC Hgb Hct MCV MCH MCHC RDW Plt Count MPV Immature Gran % (Auto) Neut % (Auto) Lymph % (Auto) [place] % (Auto) Eos % (Auto) Baso % (Auto) Lymph # (Auto) [place] # (Auto) Eos # (Auto) Baso # (Auto) Abs Immat Gran (auto) Absolute Neuts (auto) Absolute Nucleated RBC Nucleated RBC % (auto) ESR 9 PT INR D-Dimer High Sensitivty Sodium Potassium Chloride Carbon Dioxide Anion Gap BUN Creatinine Estim Creat Clear Calc Estimated GFR Random Glucose Calcium Troponin I High Sens C-Reactive Protein B-Natriuretic Peptide Urine Color Urine Appearance Urine pH Ur Specific [place] Urine Protein Urine Glucose (UA) Urine Ketones Urine Blood Urine Nitrite Ur Leukocyte Esterase Urine Test Influenza Type A (PCR) Influenza Type B (PCR) RSV RNA Qual (PCR) SARS-CoV-2 RNA (RT-PCR) Imaging Radiologist's impression: Impressions Chest X-Ray 08/23/22 20:09 IMPRESSION: * Clear lungs. Head CT 08/23/22 20:16 IMPRESSION: No acute intracranial abnormality including hemorrhage, mass effect, hydrocephalus, or acute territorial edematous infarction. Chest CTA 08/24/22 02:36 IMPRESSION: 1. No evidence of aortic dissection or aneurysm. 2. No evidence of pulmonary embolism. 3. No acute findings within the chest. 4. Hepatic steatosis. Assessment and Plan (1) Hypertensive urgency: Status: Acute Patient presents with chest discomfort and shortness of breath with marked elevation of blood pressure. EKG changes most consistent with hypertensive changes. Continues to remain hypertensive but not as significantly. There is no evidence of acute coronary syndrome and or pulmonary edema and or aortic dissection. Continue management of hypertension. Given his age need to rule out secondary causes which may include in his case fibromuscular dysplasia of the renal arteries, obstructive sleep apnea and/or endocrine causes. Should obtain endocrine workup including aldosterone, cortisol, PRA as well as metanephrine levels. Would need sleep study and renal duplex as outpatient. Can start labetalol 100 mg b.i.d. and Norvasc 5 mg. Continue to monitor blood pressure closely. His back pain appears to be musculoskeletal at this point in time. Need to continue to monitor the same. Should reconsider his current transition therapy with hormones which may be contributing to his elevated blood pressure. Will follow with you Procedures Date of Service Date of Service: 08/24/22
[2022-08-24 13:45] LABS: Cortisol Random 5.1 ug/dL
--- NOTE | 2022-08-24 15:46 | MHC.CM.PN ---
SACHIN 08/24/22 PATIENT 26 CLAUDE (he, him,his)DX Chest Pain. Patient lives with family. Independent all functional mobility. A HCP has been documented and placed on the chart. Vaccinated 2 x for Covid. DP Home self care Family member will provide transportation home.
[2022-08-24] MEDS: ondansetron HCL 4 MG/2 ML VIAL IVPUSH (17:24)
[2022-08-24] MEDS: Acetaminophen 325 MG TABLET 650 MG PO (17:24)
[2022-08-24] MEDS: Mirtazapine 15 MG TABLET PO (20:34)
[2022-08-24] MEDS: cloNIDine HCL 0.1 MG TABLET PO (20:34)
[2022-08-25] VITALS: BP 119/59; PULSE 67; RESP 14; TEMP 36.3; O2SAT 97
[2022-08-25 03:17] VITALS: BP 112/57; PULSE 64; RESP 18; TEMP 36.4; O2SAT 95
[2022-08-25] MEDS: Omeprazole 20 MG CAPSULE.DR PO (05:57)
[2022-08-25] MEDS: Acetaminophen 325 MG TABLET 650 MG PO (05:57)
[2022-08-25 07:22] VITALS: BP 140/66; PULSE 83; RESP 20; TEMP 36; O2SAT 98
[2022-08-25] MEDS: Labetalol HCL 100 MG TABLET PO (07:49)
[2022-08-25] MEDS: Sertraline HCL 50 MG TABLET PO (07:50)
[2022-08-25] MEDS: amLODIPine Besylate 5 MG TABLET PO (07:50)
[2022-08-25] MEDS: 0.9 % Sodium Chloride Flush 3 ML SYRINGE IVFLUSH (07:50)
--- NOTE | 2022-08-25 10:34 | PM.DS ---
DS: Providers Provider Date of Service: 08/25/22 Date of admission: 08/24/22 04:47 Primary care physician: None Physician Consults: 08/24/22 01:23 Consult to Cardiology Stat Consulting Provider: Ryan Jackson Reason for consultation: ekg changes, chest pain DS: Diagnosis Discharge Diagnosis (1) Hypertensive urgency: Status: Acute (2) Acute electrocardiogram changes: Status: Acute DS: Summary Hospital Course Hospital Course: Admission note HPI This is a 26year old in transition from female to male, with pertinent history of mood disorder, insomnia, gastroesophageal reflux disease who presents to the emergency department for evaluation of chest pain.? Patient states she had sudden-onset chest pain, midsternal around 15:00 when she was at work.? It did not relieve with rest, did not exacerbate with movement. Patient states it radiated to the back.? Worsened with deep inspiration and was relieved in the ER with morphine.? No history of similar pain in the past.? No history of high blood pressure.? Patient denies palpitations, shortness of breath, fever, chills, nausea, vomiting, abdominal pain, changes in urinary or bowel habits.? No history of trauma or lifting anything heavy.? No chest tenderness with palpation. In the ER, patient's blood pressure elevated with initial blood pressure 202/112.? EKG with ST depression in anterolateral leads.? Cardiology was consulted. Hospital course You were admitted to the hospital for evaluation of chest tightness. Images were negative for any acute findings. Noted to have significantly elevated blood pressure readings as EKG showed inverted T-waves in multiple leads evaluated by internet e commerce specialist who believed her symptoms are secondary to hypertensive urgency with no elevation of troponin. Symptoms started to improve after controlling blood pressure with amlodipine and labetalol. Patient was monitored overnight with no recurrence of the chest pain. To be discharged home on current medications with a plan to follow-up with PCP for further monitoring and adjustments of meds. Start amlodipine, labetalol as prescribed Monitor your blood pressure for the next week and report readings to PCP Time Spent with Patient Time attestation: Total time spent providing and/or coordinating discharge services: Discharge coordination time: Greater than 30 minutes Quality: Safe Use of Opioids Does Pt have an Active Cancer Diagnosis on the Problem List?: No Quality: Stroke Does the patient have a stroke diagnosis?: No Physical Exam Vital Signs: Vital Signs: Last Vital Signs Temp 96.8 F 08/25/22 07:22 Pulse 83 08/25/22 07:22 Resp 20 08/25/22 07:22 BP 140/66 H 08/25/22 07:22 Pulse Ox 98 08/25/22 07:22 O2 Del Method 08/25/22 07:22 BMI result Body Mass Index 42.5 Const: Other: Constitutional : Awake, interactive, obese, not in distress Neck : Normal inspection, Supple Cardiovascular : RRR, no JVP, no lower extremity edema Respiratory : good bilateral air entry, no crackles, wheezes or rhonchi Gastrointestinal: soft, lax, Normal bowel sounds, Non tender Skin : Warm, Dry Neurological : Alert & oriented x3, No focal deficit DS: Data Data Completed and Pending Labs on day of discharge: Laboratory Results - last 24 hr 08/24/22 12:12 Random Cortisol 5.1 Imaging Chest x-ray: Radiologist's impression: ITS Impressions Chest X-Ray 08/23/22 20:09 IMPRESSION: * Clear lungs. Head CT 08/23/22 20:16 IMPRESSION: No acute intracranial abnormality including hemorrhage, mass effect, hydrocephalus, or acute territorial edematous infarction. Chest CTA 08/24/22 02:36 IMPRESSION: 1. No evidence of aortic dissection or aneurysm. 2. No evidence of pulmonary embolism. 3. No acute findings within the chest. 4. Hepatic steatosis. Discharge Plan Discharge Anticipated Discharge Date/Time: 08/25/22 10:25 Patient Disposition: Home, Self-Care Discharge Diagnosis: Hypertensive urgency Referrals: Physician,None [Primary Care Provider] - 1 Week Discharge Medications: New amlodipine 5 mg Tablet 5 mg PO DAILY 30 Days Qty: 30 0RF Protocol: Hold for SBP< HOLD for SBP < : 90 labetalol 100 mg Tablet 100 mg PO BID 30 Days Qty: 60 0RF Protocol: Hold for SBP/HR < HOLD for SBP < : 90 HOLD for HR < : 60 Continued mirtazapine 15 mg tablet 1 tab PO BEDTIME testosterone cypionate 200 mg/mL oil 0.25 ml subcut WE@1000 sertraline 50 mg tablet 50 mg PO DAILY pantoprazole 40 mg tablet,delayed release (DR/EC) 40 mg PO DAILY@0630 clonidine HCl 0.1 mg tablet 0.1 mg PO BEDTIME Discharge Orders: Discharge Order (Routine); Ordered 08/25/22 Ordered By: Randy Vilchis Diet: Advance to usual diet Activity on Discharge: As tolerated Stand Alone Forms: Patient Portal Discharge page Care Plan Goals: Read below Health Concerns: Read below Plan of Treatment: Read below Assessment: You were admitted to the hospital for evaluation of chest tightness and abnormal EKG. Found to have significantly elevated blood pressure readings requiring initiating blood pressure medications with good response over the course of hospital stay as you were evaluated by internet e commerce specialist. Start amlodipine, labetalol as prescribed Monitor your blood pressure for the next week and report readings to PCP
[2022-08-25 11:43] VITALS: BP 114/53; PULSE 77; RESP 20; TEMP 36.4; O2SAT 97
--- NOTE | 2022-08-25 11:44 | P.PNCA_ITS ---
Subjective Subjective Date of Service: 08/25/22 Principal diagnosis: Hypertensive urgency Interval history: Patient complains of generalized body discomfort which is not related to her blood pressure. Blood pressure is better controlled. Workup is pending. Review of Systems Constitutional: Reports body ache(s) and Reports other Eyes: Reports no additional eye complaints Cardiovascular: Reports no additional cardiovascular complaints Respiratory: Reports no additional respiratory complaints Gastrointestinal: Reports no additional gastrointestinal complaints Genitourinary: Reports no additional female genitourinary complaints Musculoskeletal: Reports no additional musculoskeletal complaints Physical Exam Vital Signs: Last Vital Signs Temp 97.6 F 08/25/22 11:43 Pulse 77 08/25/22 11:43 Resp 20 08/25/22 11:43 BP 114/53 L 08/25/22 11:43 Pulse Ox 97 08/25/22 11:43 O2 Del Method 08/25/22 11:43 BMI result Body Mass Index 42.5 Const General: cooperative, comfortable, no acute distress, alert and awake Nutritional Appearance: obese morbidly obese Orientation/consciousness: patient oriented x3 Limitations: no limitations HEENT Head: Yes normocephalic and Yes atraumatic Neck Neck: Yes trachea midline, Yes supple and Yes no JVD Resp Effort & Inspection: normal respiratory effort Auscultation: clear to auscultation bilaterally Cardio Jugular venous distension: no JVD Palpation: normal PMI Rate: regular rate Rhythm: regular rhythm Heart sounds: S1 normal heart sound present, S2 normal heart sound present, no click, no gallops, no murmurs and no rubs GI Percussion: Yes normal to percussion Skin General skin exam: no rashes or lesions noted Neuro General: patient oriented x3 and no focal motor deficits Extrem General: Yes no clubbing, cyanosis or edema Objective Labs and Meds Result diagrams: 08/24/22 07:57 08/24/22 07:57 Lab results: Laboratory Results - last 24 hr 08/24/22 12:12 Random Cortisol 5.1 Progress Note: A&P Assessment and plan (1) Hypertensive urgency: Status: Acute Assessment and Plan: Hypertensive urgency in a young person need to rule out secondary causes ubaldo ecially endocrine causes. Also high likelihood of obstructive sleep apnea as well as renal fibromuscular dysplasia. These need to be ruled out. Continue current antihypertensive therapy. Advised to monitor blood pressure at home. Low-salt diet was discussed in the long run needs to continue aggressive weight loss program. Avoid testosterone use for now. Will follow with outpatient echocardiogram. Will sign of the case. Thank you for allowing me to partake in his care Time Spent With Patient Time: Total time spent is greater than 50% in coordination of care (as documented) at patient's floor/unit and/or counseling patient: Progress Note: Quality Stroke Does the patient have a stroke diagnosis?: No Procedures Date of Service Date of Service: 08/25/22
--- NOTE | 2022-08-25 12:26 | PC.NURSE ---
Alert and oriented. VSS, afebrile, no acute resp.distress noted. No chest pain reported. Took all schedule meds. New order to discharge patient home to follow up outpatient with GI. Went over discharge instructions, medications administrations with patient. Verbalized understanding back. refused escort to the lobby, left via her own car.
--- NOTE | 2022-08-25 15:38 | MHC.CM.PN ---
Patient discharged today to home self care. Patient transported self home, car in lot.
[2022-08-29 14:27] LABS: Metanephrine, Free 25 pg/mL (<=57); Normetanephrines, Free 76 pg/mL (<=148); Total Metanephrine, Free 101 pg/mL (<=205)
== END 2022-08-25 12:28 | disposition home or self-care (01) ==
LOC: HO.ED 08-24 01:53 → HO.EDOVER 08-24 08:00 → HO.IMC 08-24 14:51
PROVIDERS: Nurse Practitioner Family; Physician Assistant; Admitting Provider Student in an Organized Health Care Education/Training Program; Emergency Provider Emergency Medicine; Visit Provider Student in an Organized Health Care Education/Training Program
DX: R94.31 Abnormal electrocardiogram [ECG] [EKG] (principal); G47.00 Insomnia, unspecified; I16.0 Hypertensive urgency; R06.02 Shortness of breath; R07.89 Other chest pain; R51.9 Headache, unspecified; Z20.822 Contact with and (suspected) exposure to COVID-19; Z79.899 Other long term (current) drug therapy
CPT/HCPCS: 0241U; 36415; 70450; 71045; 71275; 80048; 81003; 81025; 82088; 82533; 83835; 83880; 84484; 85025; 85379; 85610; 85652; 86140; 93005; 96374; 96375; 99219; 99285; J2270; J2405; Q9967

== ENCOUNTER 2022-08-28 10:31 | Outpatient (REF) | payer OTHER, SELFPAY ==
--- NOTE | ~2022-08-28 | XR_ITS ---
EXAMINATION: XR THORACIC SPINE CLINICAL INFORMATION: Dorsalgia COMPARISON: None TECHNIQUE: 3 views of the thoracic spine were obtained. FINDINGS: There is normal thoracic kyphosis. The vertebral heights, alignment and disc heights are normal. No visible acute fracture, dislocation or subluxation seen. There are no bony erosive changes. The paravertebral soft tissues are normal. XR/XR thoracic spine 3V IMPRESSION: Unremarkable thoracic spine exam.
== END 2022-08-28 10:32 | disposition home or self-care (01) ==
LOC: HO.HMGCX 10:31
PROVIDERS: PCP Internal Medicine; Visit Provider Internal Medicine
DX: M54.9 Dorsalgia, unspecified (principal)
CPT/HCPCS: 72072

== ENCOUNTER 2022-09-03 10:22 | Outpatient (REF) | payer OTHER, SELFPAY ==
[2022-09-03 11:54] LABS: Lipase 12 U/L (8-78)
[2022-09-03 12:15] LABS: TSH reflex Free T4 2.16 uIU/mL (0.32-4.0)
[2022-09-03 15:42] LABS: Vitamin B12 331 pg/mL (200-900)
[2022-09-03 15:51] LABS: Folate 8.7 ng/mL (> or = 4.0)
[2022-09-08 15:09] LABS: Vitamin D 25-OH, D2 <4 ng/mL; Vitamin D 25-OH, D3 7 ng/mL; Vitamin D 25-OH, Total 7 ng/mL (30-100)
== END 2022-09-03 10:23 | disposition home or self-care (01) ==
LOC: HO.LAB 10:22
PROVIDERS: PCP Internal Medicine; Visit Provider Nurse Practitioner Family
DX: R07.89 Other chest pain (principal); R10.9 Unspecified abdominal pain; R14.0 Abdominal distension (gaseous); K58.0 Irritable bowel syndrome with diarrhea; K21.9 Gastro-esophageal reflux disease without esophagitis; K59.00 Constipation, unspecified; R19.7 Diarrhea, unspecified; E55.9 Vitamin D deficiency, unspecified
CPT/HCPCS: 36415; 82306; 82607; 82746; 83690; 84443; 99212

== ENCOUNTER 2022-09-12 09:38 | Outpatient (REF) | payer OTHER, SELFPAY ==
[2022-09-19 00:08] LABS: Calprotectin, Fecal 44 mcg/g
[2022-09-20 15:48] LABS: Pancreatic Elastase-1 >500 mcg/g
== END 2022-09-12 09:39 | disposition home or self-care (01) ==
LOC: HO.HMGCLDS 09:38
PROVIDERS: PCP Internal Medicine; Visit Provider Nurse Practitioner Family
DX: R10.9 Unspecified abdominal pain (principal); K21.9 Gastro-esophageal reflux disease without esophagitis
CPT/HCPCS: 82656; 83993; 87338

== ENCOUNTER 2022-09-17 10:20 | Outpatient (REF) | payer OTHER, SELFPAY ==
[2022-09-17 12:53] LABS: Cholesterol 169 mg/dL; HDL Cholesterol 40 mg/dL; LDL Cholesterol Calculated 106 mg/dl; Rheumatoid Factor < 15.0 IU/mL (<15.0); Triglycerides 117 mg/dL
[2022-09-17 13:17] LABS: Erythrocyte Sedimentation Rate 7 MM/HR (0-20)
[2022-09-24 08:44] LABS: Testosterone, Free 26.7 pg/mL (0.1-6.4); Testosterone, Total 162 ng/dL (2-45)
== END 2022-09-17 10:21 | disposition home or self-care (01) ==
LOC: HO.HMGCLDS 10:20
PROVIDERS: PCP Internal Medicine; Visit Provider Internal Medicine
DX: Z00.01 Encounter for general adult medical examination with abnormal findings (principal); I10 Essential (primary) hypertension; M25.50 Pain in unspecified joint; R76.8 Other specified abnormal immunological findings in serum; Z82.69 Family history of other diseases of the musculoskeletal system and connective tissue
CPT/HCPCS: 36415; 80061; 84402; 84403; 85652; 86431

== ENCOUNTER → 2022-09-19 09:57 | Outpatient (REF) | payer OTHER, SELFPAY | LOC: HO.SL 09:57 | PROVIDERS: PCP Internal Medicine; Visit Provider Internal Medicine Cardiovascular Disease | DX: G47.10 Hypersomnia, unspecified (principal); R42 Dizziness and giddiness; I16.0 Hypertensive urgency; R00.2 Palpitations | CPT/HCPCS: 95806 ==

== ENCOUNTER 2022-09-25 22:41 | Emergency (ER) | payer OTHER, SELFPAY ==
--- NOTE | 2022-09-25 | ECG_ITS ---
Test Reason : CHEST PAIN Blood Pressure : / mmHG Vent. Rate : 086 BPM Atrial Rate : 086 BPM P-R Int : 152 ms QRS Dur : 080 ms QT Int : 356 ms P-R-T Axes : 042 014 -19 degrees QTc Int : 426 ms Normal sinus rhythm Nonspecific ST and T wave abnormality Abnormal ECG When compared with ECG of 24-AUG-2022 00:07, T wave inversion no longer evident in Anterior leads Referred By: Generic ED Physician Electronically Signed By:King Romero
--- NOTE | ~2022-09-25 | XR_ITS ---
EXAMINATION: XR CHEST CLINICAL INFORMATION: Chest pain COMPARISON: Chest x-ray 08/23/2022 TECHNIQUE: Frontal view of the chest was obtained. FINDINGS: No significant abnormality is noted involving the heart, lungs, mediastinum, bony thorax or soft tissues. XR/XR chest 1V IMPRESSION: Unremarkable examination.
[2022-09-25 22:47] VITALS: BP 158/103; PULSE 95; RESP 20; TEMP 36.8; O2SAT 98; BMI 44.2
[2022-09-25 23:14] LABS: MANUAL DIFF FLAG NO
[2022-09-25 23:15] LABS: Basophils Absolute Auto 0.1 X10*3/uL (0.0-0.2); Basophils Percent Auto 0.5 % (0-2); Eosinophils Absolute Auto 0.1 X10*3/uL (0.0-0.4); Eosinophils Percent Auto 0.6 % (0-4); Hematocrit 43.5 % (37.0-47.0); Hemoglobin 14.5 g/dl (12.0-16.0); Imm Gran Abs Auto 0.03 X10*3/uL (0.00-0.03); Imm Gran Pct Auto 0.3 % (0.0-0.4); Lymphocytes Absolute Auto 3.3 X10*3/uL (1.2-4.9); Lymphocytes Percent Auto 34.3 % (20-40); Mean Corpuscular HGB Conc 33.3 g/dl (31.0-35.0); Mean Corpuscular Hemoglobin 26.9 pg (27.0-33.0); Mean Corpuscular Volume 80.7 fL (80.0-98.0); Mean Platelet Volume 9.3 fL (9.4-12.3); Monocytes Absolute Auto 0.5 X10*3/uL (0.1-1.2); Monocytes Percent Auto 5.7 % (2-11); Neutrophils Absolute Auto 5.6 x10*3/uL (2.0-8.3); Neutrophils Percent Auto 58.6 % (45-73); Platelet Count 338 X10*3/uL (160-400); Red Blood Count 5.39 X10*6/uL (4.20-5.50); Red Cell Distribution Width 13.5 % (11.0-16.0); White Blood Count 9.6 X10*3/uL (4.8-10.8)
[2022-09-25 23:28] LABS: Anion Gap 13 (12-20); Blood Urea Nitrogen 13 mg/dL (9-16); Calcium 9.9 mg/dL (8.4-10.2); Carbon Dioxide 25 mmol/L (22-29); Chloride 106 mmol/L (96-108); Creatinine Clr Calc Pharmacy 109.7; Estimated Glomerular Filt Rate > 60; Glucose Random 120 mg/dL (60-115); Potassium 3.7 mmol/L (3.3-5.1); Sodium 140 mmol/L (135-145)
--- NOTE | 2022-09-26 00:05 | ED.CHESTPAIN ---
HPI - Chest Pain General Chief Complaint: Chest Pain Stated Complaint: chest pain, upper/ lower back pain Time Seen by Provider: 09/26/22 00:01 Source: patient Mode of arrival: ambulatory Limitations: no limitations History of Present Illness HPI narrative: Patient patient history of lupus polyarthralgia complaining of joint pains chest pain backache similar in last admission on 08/24/20 workup was negative on arrival patient's blood pressure was 158/103 now 132/73 Related Data Home Medications Medication Instructions Recorded Confirmed clonidine HCl 0.1 mg tablet 0.1 mg PO BEDTIME 12/07/21 09/17/22 mirtazapine 15 mg tablet 1 tab PO BEDTIME 08/24/22 09/17/22 sertraline 50 mg tablet 50 mg PO DAILY 08/24/22 09/17/22 Previous Rx's Medication Instructions Recorded amlodipine 5 mg tablet 5 mg PO DAILY 30 days #30 tabs 08/25/22 labetalol 100 mg tablet 100 mg PO BID 30 days #60 tabs 08/25/22 cholecalciferol (vitamin D3) 1,250 1,250 mcg PO QWEEK #13 caps 09/11/22 mcg (50,000 unit) capsule pantoprazole 40 mg tablet,delayed 40 mg PO DAILY@0630 #30 tabs 09/11/22 release prednisone 20 mg tablet 40 mg PO DAILY #10 tabs 09/26/22 tramadol 50 mg tablet 50 mg PO Q6H PRN pain #20 tabs 09/26/22 Allergies Allergy/AdvReac Type Severity Reaction Status Date / Time shellfish derived Allergy Intermediate HIVES Verified 09/25/22 22:53 [SHELLFISH DERIVED] SWOLLEN FACE [place] And Derivatives Allergy Unknown hives Verified 09/25/22 22:53 [CITRUS] SEAFOOD Allergy Unknown ANGIOEDEMA Uncoded 09/25/22 22:53 Review of Systems Review of Systems: Yes all other systems are reviewed and are negative PMFSH Past Medical History Medical History Blurred vision, bilateral Depression Esophagitis Essential hypertension Family history of systemic lupus erythematosus Gastric ulcer Heartburn Impaired fasting glucose Insomnia Lumbago with sciatica, left side Mid back pain on left side Obesity (BMI 30-39.9) Polyarthralgia Positive KERI (antinuclear antibody) Vitamin D deficiency Surgical History Hx of colonoscopy Hx of esophagogastroduodenoscopy Family History Family History Father History of renal dialysis Chronic kidney disease (CKD) Substance use disorder Mental health disorder Mother Substance use disorder Mental health disorder Brother Mental health disorder Brother Mental health disorder Brother Mental health disorder Brother Mental health disorder Sister Mental health disorder Sister Mental health disorder Social History Social History Household Members: Family and Other Household Members Other:: Aunt Housing: Apartment Alcohol intake: former Patient Tobacco Use Status: Never used Tobacco e-Cigarette/Vaping Use: Currently Using Second Hand Smoke Exposure: Yes Substance Use Type: Marijuana Advance Directives: No service: No Current occupational status: employed Current occupation: [employer] Sexual orientation: Lesbian/Lomas/Homosexual Cognitive needs: No Hearing needs: No Vision needs: No Physical Exam Vital Signs: Vital Signs: Last Vital Signs Temp 98.2 F 09/26/22 00:21 Pulse 77 09/26/22 00:21 Resp 16 09/26/22 00:21 BP 132/73 09/26/22 00:21 Pulse Ox 98 09/26/22 00:21 O2 Del Method 09/26/22 00:21 BMI result Body Mass Index 44.2 Appearance: Alert. Oriented X3. No acute distress. Eyes: PERRLA, No Nystagmus ENT: Pharynx normal. Oral Mucosa moist Neck: Normal inspection. Neck supple. CVS: Normal heart rate and rhythm. Pulses normal. Respiratory: No respiratory distress. Equal air entry bilateral, no wheezing/rales/rhonchi chest wall tenderness Abdomen: Soft and nontender. Bowel sounds are present, no mass palpable, no CVA tenderness Skin: Skin warm and dry. Normal skin color. Normal skin turgor. Extremities: No lower extremity edema. No calf tenderness diffuse joint swelling tenderness specially in the wrist Neuro: Oriented X 3. No motor deficit. Medications Administered Discontinued Medications Generic Name Dose Route Start Last Admin Trade Name Freq PRN Reason Stop Dose Admin Prednisone 40 mg 09/26/22 00:12 09/26/22 00:25 Prednisone 20 Mg Tablet PO 09/26/22 00:13 40 mg ONCE ONE Administration Tramadol HCl 50 mg 09/26/22 00:12 09/26/22 00:26 Tramadol Hcl 50 Mg Tablet PO 09/26/22 00:13 50 mg ONCE ONE Administration Medical Decision Making Medical Decision Making [facility] Narrative: Patient lupus arthralgia negative cardiac. discharge patient home on tramadol and prednisone Lab Data [facility] Lab Attestation statement: I reviewed the patient's lab results. Result Diagrams: 09/25/22 22:56 09/25/22 22:56 Labs: Lab Results 09/25/22 09/25/22 Range/Units 22:56 22:56 WBC 9.6 (4.8-10.8) X10*3/uL RBC 5.39 (4.20-5.50) X10*6/uL Hgb 14.5 (12.0-16.0) g/dl Hct 43.5 (37.0-47.0) % MCV 80.7 (80.0-98.0) fL MCH 26.9 L (27.0-33.0) pg MCHC 33.3 (31.0-35.0) g/dl RDW 13.5 (11.0-16.0) % Plt Count 338 (160-400) X10*3/uL MPV 9.3 L (9.4-12.3) fL Immature Gran % (Auto) 0.3 (0.0-0.4) % Neut % (Auto) 58.6 (45-73) % Lymph % (Auto) 34.3 (20-40) % Andrews % (Auto) 5.7 (2-11) % Eos % (Auto) 0.6 (0-4) % Baso % (Auto) 0.5 (0-2) % Lymph # (Auto) 3.3 (1.2-4.9) X10*3/uL Andrews # (Auto) 0.5 (0.1-1.2) X10*3/uL Eos # (Auto) 0.1 (0.0-0.4) X10*3/uL Baso # (Auto) 0.1 (0.0-0.2) X10*3/uL Abs Immat Gran (auto) 0.03 (0.00-0.03) X10*3/uL Absolute Neuts (auto) 5.6 (2.0-8.3) x10*3/uL Absolute Nucleated RBC 0.000 (0.0-0.012) X10*3/uL Nucleated RBC % (auto) 0.0 (0.0-0.2) /100WBC Sodium 140 (135-145) mmol/L Potassium 3.7 (3.3-5.1) mmol/L Chloride 106 (96-108) mmol/L Carbon Dioxide 25 (22-29) mmol/L Anion Gap 13 (12-20) BUN 13 D (9-16) mg/dL Creatinine 0.95 (0.5-1.4) mg/dL Estim Creat Clear Calc 109.7 Estimated GFR > 60 Random Glucose 120 H (60-115) mg/dL Calcium 9.9 (8.4-10.2) mg/dL Independent Interpretation I performed an independent interpretation of an: EKG Interpretation: Normal sinus rhythm heart rate 86 beats per minute normal intervals normal axis nonspecific ST T wave changes no acute ischemia Discharge Plan Discharge Clinical Impression: Arthralgia Patient Disposition: Home, Self-Care Instructions: Arthralgia (ED) Additional Instructions: Drink plenty of fluid ,continue medications Prednisone as prescribed Tramadol for joint pains Follow with PCP Prescriptions: New prednisone 20 mg tablet 40 mg PO DAILY Qty: 10 0RF tramadol 50 mg tablet 50 mg PO Q6H PRN (Reason: pain) Qty: 20 0RF No Action cholecalciferol (vitamin D3) 1,250 mcg (50,000 unit) capsule 1,250 mcg PO QWEEK Qty: 13 0RF pantoprazole 40 mg tablet,delayed release (DR/EC) 40 mg PO DAILY@0630 Qty: 30 0RF mirtazapine 15 mg tablet 1 tab PO BEDTIME sertraline 50 mg tablet 50 mg PO DAILY amlodipine 5 mg Tablet 5 mg PO DAILY 30 Days Qty: 30 0RF Protocol: Hold for SBP< HOLD for SBP < : 90 labetalol 100 mg Tablet 100 mg PO BID 30 Days Qty: 60 0RF Protocol: Hold for SBP/HR < HOLD for SBP < : 90 HOLD for HR < : 60 clonidine HCl 0.1 mg tablet 0.1 mg PO BEDTIME
[2022-09-26 00:21] VITALS: BP 132/73; PULSE 77; RESP 16; TEMP 36.8; O2SAT 98
[2022-09-26] MEDS: predniSONE 20 MG TABLET 40 MG PO (00:25)
[2022-09-26] MEDS: traMADoL HCL 50 MG TABLET PO (00:26)
[2022-09-26 01:27] LABS: Troponin-I High Sensitivity < 3.5 ng/L (<3.5-17.0)
== END 2022-09-26 01:40 | disposition home or self-care (01) ==
PROVIDERS: Emergency Provider Internal Medicine; PCP Internal Medicine
DX: M25.50 Pain in unspecified joint (principal); I10 Essential (primary) hypertension; F17.290 Nicotine dependence, other tobacco product, uncomplicated; F12.90 Cannabis use, unspecified, uncomplicated
CPT/HCPCS: 36415; 71045; 80048; 84484; 85025; 93005; 99283; 99284

== ENCOUNTER → 2022-10-16 15:01 | Outpatient (REF) | payer OTHER, SELFPAY ==
--- NOTE | ~2022-10-16 | US_ITS ---
EXAMINATION: US RETROPERITONEAL LIMITED (RENAL ONLY) CLINICAL INFORMATION: Hypersomnia. COMPARISON: Abdominal ultrasound examination dated 12/25/2021 and 04/19/2021; CT enterography dated 11/06/2021. TECHNIQUE: Real-time imaging of the kidneys. FINDINGS: RIGHT KIDNEY: 10.1 x 3.8 x 4.2 cm (SAG x AP x TRV). The kidney is normal in size, contour, and echogenicity. Renal cortical thickness is normal. No calculi or focal parenchymal lesions. No hydronephrosis. LEFT KIDNEY: 10.0 x 4.2 x 5.0 cm (SAG x AP x TRV). The kidney is normal in size, contour, and echogenicity. Renal cortical thickness is normal. No calculi or focal parenchymal lesions. No hydronephrosis. US/US renal BI IMPRESSION: Unremarkable examination.
--- NOTE | 2022-10-16 15:03 | CA_ITS ---
Transthoracic Echocardiogram Patient (Last, First, Middle): Lani Kumar, Gender: Female Date of : 1995 Age: 26 Procedure Date: 10/16/2022 Procedure Type: Transthoracic Echocardiogram Location: OP Height: 160.02 cm Weight: 113.4 kg BSA: 2.13 m2 Heart Rate: 68 bpm BP: 140 / 90 mmHg Rotary Dump Operator: DEBORA Referring MD: Ryan Jackson MD Food Selector: Ryan Jackson MD Symptoms: Palpitations, Dizziness Study Quality: Fair ECG Rhythm: Sinus Conclusions: - Essentially normal study Findings Left Ventricle Normal left ventricular size, thickness, and systolic function. The visually estimated ejection fraction is between 60-65%. Spectral Doppler is indicative of a normal filling pattern. Right Ventricle Normal right ventricular cavity size and systolic function. Atria Both atria are normal in size. Interatrial shunt cannot be excluded. Aortic Valve Normal aortic valve structure and function. There is no aortic valve stenosis. There is no aortic valve regurgitation. Mitral Valve Normal mitral valve structure and function. There is no mitral valve regurgitation. There is no mitral valve stenosis. Pulmonic Valve The pulmonic valve is likely normal. Tricuspid Valve Normal tricuspid valve structure. There is trace tricuspid valve regurgitation. The right ventricular systolic pressure is normal. The right ventricular systolic pressure is 17 mmHg. Normal right atrial pressure. There is no evidence of pulmonary hypertension. Great Vessels All visible segments of the aorta are normal in size. The pulmonary artery was not well visualized. Venous The inferior vena cava is normal in size and collapses greater than 50% with inspiration. Pericardium/Pleural There is no evidence of pericardial effusion. Prior Study Comparison No prior study available for comparison. Measurements 2D Linear Measurements IVSd: 0.87 0.6-0.9/0.6-1.0 cm LVIDd: 4.80 3.9-5.3/4.2-5.9 cm LVIDd Index: 2.25 2.4-3.2/2.2-3.1 cm/m2 LVIDs: 2.13 2.0-3.6 cm LVPWd: 0.99 0.7-1.1 cm LA Diam: 3.60 2.7-3.8/3.0-4.0 cm LAIDs Index: 1.69 1.5-2.3 cm/m2 LV Mass: 191.66 67-162/88-224 g LV Mass Index: 89.98 43-95/49-115 g/m2 LVOT Diam: 1.90 3.0+(-)1.3 cm 2D Systolic Function EF 4C: 66.60 >55% EF 2C: 54.30 >55% EF BiP: 60.30 >55% Mitral Valve MV Pk E: 0.91 MV PK A: 0.59 MV Decel Time: 199.00 E/A: 1.60 E'Lateral: 12.40 E'Medial: 9.36 E/E' Med: 9.70 E/E' Lat: 7.40 PHT: 58.00 MVA PHT: 3.79 Decel Comal: 4.58 Aortic Valve AoV Pk Yamil: 1.42 AoV Mn Yamil: 0.92 AoV VTI: 0.29 AoV Pk Grad: 8.00 Aov Mn Grad: 4.00 SINAN Cont.VTI: 2.70 LVOT LVOT Pk Yamil: 1.32 LVOT Mn Yamil: 0.87 LVOT VTI: 0.27 LVOT Pk Grad: 7.00 LVOT Mn Grad: 4.00 LVOT Diam: 1.90 LVOT Area: 2.84 Diastolic Function MV Pk E: 0.91 MV Pk A: 0.59 E/A: 1.60 E'Medial: 9.36 E/E' Med: 9.70 E' Laterial: 12.40 E/E' Lat: 7.40 Right Ventricle TAPSE (mm): 19.80 TVS' Yamil: 9.46 Tricuspid Valve TR Pk Yamil: 1.88 TR Pk Grad: 14.00 RA Press: 3.00 RVSP: 17.00 Great Vessels Aorta Sinus of Valsalva: 3.00 2.0-3.5 cm Ao Asc: 2.40 2.1-3.4 cm Pulmonary Valve PV Pk Yamil: 1.18 Peak PV Grad: 6.00 Updated in Other Vendor System with Status of Final Ryan Jackson MD electronically signed on 10/17/2022 9:30:53 AM with status of Final
== END ==
LOC: HO.CARD 15:01
PROVIDERS: PCP Internal Medicine; Visit Provider Internal Medicine Cardiovascular Disease
DX: I16.0 Hypertensive urgency (principal); R00.2 Palpitations; R42 Dizziness and giddiness; G47.10 Hypersomnia, unspecified
CPT/HCPCS: 76775; 93306

== ENCOUNTER → 2022-10-22 15:00 | Outpatient (BNVA) | payer OTHER, SELFPAY | PROVIDERS: PCP Internal Medicine; Visit Provider Nurse Practitioner Family | DX: R07.9 Chest pain, unspecified (principal); I10 Essential (primary) hypertension; R73.01 Impaired fasting glucose; E66.01 Morbid (severe) obesity due to excess calories; E55.9 Vitamin D deficiency, unspecified; Z68.41 Body mass index [BMI] 40.0-44.9, adult; Z09 Encounter for follow-up examination after completed treatment for conditions other than malignant neoplasm | CPT/HCPCS: 99212 ==

== ENCOUNTER 2022-11-01 13:33 | Emergency (ER) | payer OTHER, SELFPAY ==
--- NOTE | ~2022-11-01 | CT_ITS ---
EXAMINATION: CT ABDOMEN AND PELVIS WITHOUT CONTRAST CLINICAL INFORMATION: Left back and flank pain COMPARISON: Renal ultrasound 10/16/2022, CT abdomen pelvis 11/06/2021 TECHNIQUE: Multidetector volumetric imaging was performed from the superior aspect of the liver through the pubic symphysis. Sagittal and coronal reformatted images were obtained on the technologist's workstation. This CT examination was performed using dose optimization techniques as appropriate, variously including the following: *Automated exposure control *Adjustment of mA and/or kV according to patient size (this includes techniques or standardized protocols for targeted exams where dose is matched to indication/reason for exam; i.e. extremities or head) *Use of iterative reconstruction technique DLP: 936 mGy-cm FINDINGS: LUNG BASES: The visualized lung bases are unremarkable. LIVER, GALLBLADDER, AND BILIARY TREE: Mild hepatic hypoattenuation/steatosis. Normal hepatic size. No liver lesion or biliary ductal dilation. The gallbladder is unremarkable with no evidence of radiopaque gallstones, gallbladder wall thickening, or obvious pericholecystic inflammatory changes. PANCREAS: Unremarkable. SPLEEN: Unremarkable. ADRENAL GLANDS: Unremarkable. KIDNEYS AND URETERS: The kidneys are normal in size, shape, and attenuation. No hydronephrosis, hydroureter, or calculi seen. No perinephric stranding. BLADDER: Unremarkable. GASTROINTESTINAL TRACT: No dilated bowel loops. No bowel wall thickening. Normal appendix. No free air or ascites. ABDOMINAL WALL: No significant hernia is appreciated. LYMPH NODES: Normal. VASCULAR: Unremarkable. PELVIC VISCERA: Gynecologic structures grossly unremarkable, limited assessment. No free pelvic fluid. OSSEOUS STRUCTURES: No acute fracture or suspicious appearing osseous lesion. CT/CT abdomen pelvis wo IV con IMPRESSION: 1. No renal/ureteral calculi. No hydronephrosis. 2. No acute intra-abdominal process identified. 3. Mild hepatic steatosis.
--- NOTE | 2022-11-01 13:35 | ED_ITS ---
HPI - General Adult General Chief complaint: Abdominal Pain <STEFFANY Maxwell - Last Filed: 11/01/22 13:39> Stated complaint: Lower back pain/ abdominal pain <STEFFANY Maxwell - Last Filed: 11/01/22 13:39> Time Seen by Provider: 11/01/22 16:09 <STEFFANY Maxwell - Last Filed: 11/01/22 13:39> Source: patient <STEFFANY Marquez Last Filed: 11/01/22 17:49> Mode of arrival: ambulatory <STEFFANY Marquez Last Filed: 11/01/22 17:49> Limitations: no limitations <STEFFANY Marquez Last Filed: 11/01/22 17:49> History of Present Illness HPI narrative: 26-year-old assigned female at now transitioning to male presenting to the ER with complaints of left back/flank pain now radiating to her left lower quadrant with associated difficulty urinating for the past few days worse today. He denies any fevers, chills, dizziness, headaches, neck pain/stiffness, trouble swallowing or breathing, chest pain or shortness of breath, hematuria, abnormal discharge, black or bloody stools, nausea vomiting, recent travel or sick contacts, recent epidural procedure, urinary bowel incontinence or retention, IV drug use, saddle anesthesias, lower extremity more calf tenderness, rashes, recent falls or trauma or any other symptoms complaints or concerns at this time. <STEFFANY Marquez Last Filed: 11/01/22 17:49> MD complaint: Left back/left abdominal pain with urinary symptoms <STEFFANY Marquez Last Filed: 11/01/22 17:49> Onset (ago): day(s) (The past few days worse today) <STEFFANY Marquez Last Filed: 11/01/22 17:49> Related Data Home medications: Home Medications Medication Instructions Recorded Confirmed clonidine HCl 0.1 mg tablet 0.1 mg PO BEDTIME 12/07/21 10/22/22 sertraline 50 mg tablet 50 mg PO DAILY 08/24/22 10/22/22 mirtazapine 15 mg tablet 15 mg PO BEDTIME 10/22/22 10/22/22 Previous Rx's Medication Instructions Recorded cholecalciferol (vitamin D3) 1,250 1,250 mcg PO QWEEK #13 caps 09/11/22 mcg (50,000 unit) capsule prednisone 20 mg tablet 40 mg PO DAILY #10 tabs 09/26/22 tramadol 50 mg tablet 50 mg PO Q6H PRN pain #20 tabs 09/26/22 amlodipine 5 mg tablet 5 mg PO DAILY 90 days #90 tabs 10/22/22 pantoprazole 40 mg tablet,delayed 40 mg PO DAILY@0630 #30 tabs 10/23/22 release nitrofurantoin 100 mg PO BID 7 days #14 caps 11/01/22 monohydrate/macrocrystals 100 mg capsule (Macrobid) <STEFFANY Maxwell - Last Filed: 11/01/22 13:39> Allergies/adverse reactions: Allergies Allergy/AdvReac Type Severity Reaction Status Date / Time shellfish derived Allergy Intermediate HIVES Verified 11/01/22 12:43 [SHELLFISH DERIVED] SWOLLEN FACE Coldstream And Derivatives Allergy Unknown hives Verified 11/01/22 12:43 [CITRUS] SEAFOOD Allergy Unknown ANGIOEDEMA Uncoded 09/25/22 22:53 <STEFFANY Maxwell - Last Filed: 11/01/22 13:39> Review of Systems Review of Systems: Constitutional : No trauma, No Weight loss, No Fever, No Chills, ENT/Mouth : No Hearing loss, No Ear Pain, No Nasal Congestion, No Sinus Pain, No Hoarseness, No sore throat, No Rhinorrhea, No Swallowing Difficulty Cardiovascular : No Chest Pain, No SOB Respiratory : No Cough, No Dyspnea Gastrointestinal : No Nausea, No Vomiting, No Diarrhea, + abdominal Pain, No Hematochezia, No Melena Genitourinary : + Dysuria, + Urinary Frequency, No Hematuria, No Urinary or Bowel Incontinence/retention Musculoskeletal : + Back pain, No neck pain, No joint stiffness, No joint swelling Skin : No Skin Lesions, No rash or signs of infection Neuro : No Weakness, No radiation, No Numbness, No Paresthesias, No headache, no loss of bowel or bladder incontinence, no saddle anesthesia, Focal weakness, No radiation Denies history of IV drug usage. <STEFFANY Marquez - Last Filed: 11/01/22 17:49> Yes all other systems are reviewed and are negative <STEFFANY Marquez - Last Filed: 11/01/22 17:49> [facility] Past Medical History Attestation statement: The following information was validated with the patient. <STEFFANY Marquez - Last Filed: 11/01/22 17:49> Source: old records reviewed and nursing notes reviewed <STEFFANY Marquez - Last Filed: 11/01/22 17:49> Medical History: Medical History Blurred vision, bilateral Depression Esophagitis Essential hypertension Family history of systemic lupus erythematosus Gastric ulcer Heartburn Impaired fasting glucose Insomnia Lumbago with sciatica, left side Mid back pain on left side Obesity (BMI 30-39.9) Polyarthralgia Positive KERI (antinuclear antibody) Vitamin D deficiency <STEFFANY Maxwell - Last Filed: 11/01/22 13:39> Surgical History: Surgical History Hx of colonoscopy Hx of esophagogastroduodenoscopy <STEFFANY Maxwell - Last Filed: 11/01/22 13:39> Family History Family History: Family History Father History of renal dialysis Chronic kidney disease (CKD) Substance use disorder Mental health disorder Mother Substance use disorder Mental health disorder Brother Mental health disorder Brother Mental health disorder Brother Mental health disorder Brother Mental health disorder Sister Mental health disorder Sister Mental health disorder <STEFFANY Maxwell - Last Filed: 11/01/22 13:39> Social History Social History: Social History Household Members: Family and Other Household Members Other:: Aunt Housing: Apartment Alcohol intake: former Patient Tobacco Use Status: Never used Tobacco e-Cigarette/Vaping Use: Currently Using Second Hand Smoke Exposure: Yes Substance Use Type: Marijuana Advance Directives: No Advance Directives Information Provided: No service: No Current occupational status: employed Current occupation: [employer] Sexual orientation: Lesbian/Lomas/Homosexual Cognitive needs: No Hearing needs: No Vision needs: No <STEFFANY Maxwell - Last Filed: 11/01/22 13:39> Physical Exam ED Vital Signs: Vital Signs - 24 hr 11/01/22 13:36 Temperature 97 F Pulse Rate 83 Respiratory Rate 18 Blood Pressure 172/105 H Pulse Oximetry 98 Oxygen Delivery Method Room Air BMI result Body Mass Index 44.2 <STEFFANY Maxwell - Last Filed: 11/01/22 13:39> Vital Signs - 24 hr 11/01/22 13:36 Temperature 97 F Pulse Rate 83 Respiratory Rate 18 Blood Pressure 172/105 H Pulse Oximetry 98 Oxygen Delivery Method Room Air BMI result Body Mass Index 44.2 vital signs have been reviewed as normal and appeared to be correct. Blood pressure 172/105 Heart rate normal. Respiration rate normal. Temperature normal. Oxygen saturation normal. <STEFFANY Marquez - Last Filed: 11/01/22 17:49> Appearance: Alert. Oriented X3. No acute distress. Head: Normal external exam. Normocephalic. Atraumatic. Eyes: PERRLA. EOMI. Conjunctiva and sclera normal. Eyelids normal. ENT: Pharynx normal. Uvula midline. Moist mucous membranes. No lesions/ulcerations or masses noted on the tongue. Normal voice. No trismus noted. No drooling noted. No muffled voice noted. Neck: Normal inspection. Neck supple. FROM. No adenopathy. Thyroid Normal. No tracheal deviation noted. No crepitus is noted. No meningeal signs. No neck mass noted. No signs of trauma noted. CVS: Normal heart rate and rhythm. Heart sound normal. Pulses normal throughout. No murmurs/rales/gallops. Respiratory: No respiratory distress. Painless inspiration. Abdomen: Soft and mild tenderness palpation to the left flank/left lower quadrant. Bowel sounds normal in all 4 quadrants. No distention noted. No org anomegaly noted. No visible injury noted. Negative Rovsing sign. Negative Lerma sign. Negative obturator's sign. Negative psoas sign. Back: No CVA tenderness. Full range of motion noted. Nontender. No signs of trauma. Patient neuro intact bilaterally and distally on all 4 extremities. Pa tient's reflexes intact bilaterally and distally on all 4 extremities. No rashes/lesion/induration/fluctuance or signs of infection noted. Skin: Skin warm and dry. Normal skin color. Normal skin turgor. No rashes/lesions/lacerations noted. Extremities: Extremities exhibit normal range of motion and nontender. Neuro: Oriented X 3. No motor deficit. No sensory deficit. Reflexes normal. Normal steady gait. No focal neuro deficits noted. CN's II-XII intact bilaterally? Vascular: + radial pulses/+ 2 distal pedal pulses/+2 dorsalis pedis b/l. Normal cap refill. No cyanosis noted to upper extremity nails and lower extremity toes nails. <STEFFANY Marquez - Last Filed: 11/01/22 17:49> Course Course Course Narrative: RME performed by Lara Murillo PA-C. Patient is a 26 year old assigned female at now male, presenting to the emergency department with abdominal and back pain. Labs ordered. Patient placed back in the waiting room pending work up and room availability. <STEFFANY Maxwell Last Filed: 11/01/22 13:39> RME performed by Lara Murillo PA-C. Patient is a 26 year old assigned female at now male, presenting to the emergency department with abdominal and back pain. Labs ordered. Patient placed back in the waiting room pending work up and room availability. <STEFFANY Marquez Last Filed: 11/01/22 17:49> Reevaluation(s) Reevaluation #1: 26-year-old assigned female at now transitioning to male presenting to the ER with complaints of left back/flank pain now radiating to her left lower quadrant with associated difficulty urinating for the past few days worse today. Pt c likely muscular pain, but could be herniated disc. Neuro exam shows no deficits. Not c/w AAA/epidural abscess/dissection.No high risk Hx (Incont, fever, immunosupp, recent surgery/LP, coag, signif trauma, wt loss, puls mass, hx/o Ca, TB, or IVDU) to warrant MRI. Not c/w spinal fx. Not cauda equina syndrome. Due to patient having left flank and left lower quadrant abdominal tenderness with dysuria and increased urinary frequency/urgency labs and UA were obtained along with a CT scan. Labs reviewed and patient's random glucose 118. ALT 33. Otherwise all other labs are within normal limits. UA revealed moderate amount of leukocytes therefore patient most likely a UTI. CT scan abdomen pelvis without IV contrast negative for any acute processes. Therefore at this time will DC home with antibiotics for UTI and instructions return if any new or worsening symptoms to follow up with primary care provider. Patient understands agrees with this plan. <STEFFANY Marquez - Last Filed: 11/01/22 17:49> Time: 17:47 <STEFFANY Marquez - Last Filed: 11/01/22 17:49> Medications Administered Discontinued Medications Generic Name Dose Route Start Last Admin Trade Name Freq PRN Reason Stop Dose Admin Ketorolac Tromethamine 30 mg 11/01/22 16:14 11/01/22 16:22 Ketorolac Tromethamine 30 Mg/Ml Vial IM 11/01/22 16:15 30 mg ONCE ONE Administration Ondansetron HCl 4 mg 11/01/22 16:14 11/01/22 16:24 Ondansetron Odt 4 Mg Tab.Rapdis TRANSLINGU 11/01/22 16:15 4 mg ONCE ONE Administration <STEFFANY Maxwell - Last Filed: 11/01/22 13:39> Medications Administered Discontinued Medications Generic Name Dose Route Start Last Admin Trade Name Freq PRN Reason Stop Dose Admin Ketorolac Tromethamine 30 mg 11/01/22 16:14 11/01/22 16:22 Ketorolac Tromethamine 30 Mg/Ml Vial IM 11/01/22 16:15 30 mg ONCE ONE Administration Ondansetron HCl 4 mg 11/01/22 16:14 11/01/22 16:24 Ondansetron Odt 4 Mg Tab.Rapdis TRANSLINGU 11/01/22 16:15 4 mg ONCE ONE Administration <STEFFANY Marquez - Last Filed: 11/01/22 17:49> Medical Decision Making Lab Data MDM Lab Attestation statement: I reviewed the patient's lab results. <STEFFANY Marquez - Last Filed: 11/01/22 17:49> Result Diagrams: 11/01/22 13:52 11/01/22 13:52 <STEFFANY Maxwell - Last Filed: 11/01/22 13:39> Labs: Lab Results 11/01/22 11/01/22 11/01/22 Range/Units 13:52 13:52 17:25 WBC 7.0 (4.8-10.8) X10*3/uL RBC 5.38 (4.20-5.50) X10*6/uL Hgb 14.9 (12.0-16.0) g/dl Hct 43.3 (37.0-47.0) % MCV 80.5 (80.0-98.0) fL MCH 27.7 (27.0-33.0) pg MCHC 34.4 (31.0-35.0) g/dl RDW 13.3 (11.0-16.0) % Plt Count 314 (160-400) X10*3/uL MPV 9.7 (9.4-12.3) fL Immature Gran % (Auto) 0.1 (0.0-0.4) % Neut % (Auto) 62.0 (45-73) % Lymph % (Auto) 31.0 (20-40) % Green % (Auto) 6.1 (2-11) % Eos % (Auto) 0.4 (0-4) % Baso % (Auto) 0.4 (0-2) % Lymph # (Auto) 2.2 (1.2-4.9) X10*3/uL Green # (Auto) 0.4 (0.1-1.2) X10*3/uL Eos # (Auto) 0.0 (0.0-0.4) X10*3/uL Baso # (Auto) 0.0 (0.0-0.2) X10*3/uL Abs Immat Gran (auto) 0.01 (0.00-0.03) X10*3/uL Absolute Neuts (auto) 4.4 (2.0-8.3) x10*3/uL Absolute Nucleated RBC 0.000 (0.0-0.012) X10*3/uL Nucleated RBC % (auto) 0.0 (0.0-0.2) /100WBC Sodium 139 (135-145) mmol/L Potassium 4.0 (3.3-5.1) mmol/L Chloride 107 (96-108) mmol/L Carbon Dioxide 23 (22-29) mmol/L Anion Gap 13 (12-20) BUN 15 (9-16) mg/dL Creatinine 0.99 (0.5-1.4) mg/dL Estim Creat Clear Calc 105.3 Estimated GFR > 60 Random Glucose 118 H (60-115) mg/dL Calcium 9.8 (8.4-10.2) mg/dL Magnesium 2.2 (1.6-2.6) mg/dL Total Bilirubin 0.8 (0.0-1.0) mg/dL AST 28 (5-31) U/L ALT 33 H (0-31) U/L Alkaline Phosphatase 93 (39-117) U/L Total Protein 7.7 (6.5-8.0) g/dL Albumin 4.5 (3.5-5.0) g/dL Beta HCG, Quant < 2 mIU/mL Urine Color Yellow Urine Appearance Cloudy Urine pH 5.5 (5.0-9.0) Ur Specific [place] 1.020 (1.005-1.025) Urine Protein Negative (Neg-Trace) mg/dL Urine Glucose (UA) Negative (Negative) mg/dL Urine Ketones Trace (Negative) mg/dL Urine Blood Negative (Negative) Urine Nitrite Negative (Negative) Ur Leukocyte Esterase Moderate (2+) H (Negative) Urine RBC 0-2 (0-2) /HPF Urine WBC 11-20 H (0-5) /HPF Ur Squamous Epith Cells 11-20 (0-2) /HPF Urine Bacteria 1+ (None Seen) Hyaline Casts 0-2 (0-2) /LPF <STEFFANY Maxwell - Last Filed: 11/01/22 13:39> Lab Results 11/01/22 11/01/22 11/01/22 Range/Units 13:52 13:52 17:25 WBC 7.0 (4.8-10.8) X10*3/uL RBC 5.38 (4.20-5.50) X10*6/uL Hgb 14.9 (12.0-16.0) g/dl Hct 43.3 (37.0-47.0) % MCV 80.5 (80.0-98.0) fL MCH 27.7 (27.0-33.0) pg MCHC 34.4 (31.0-35.0) g/dl RDW 13.3 (11.0-16.0) % Plt Count 314 (160-400) X10*3/uL MPV 9.7 (9.4-12.3) fL Immature Gran % (Auto) 0.1 (0.0-0.4) % Neut % (Auto) 62.0 (45-73) % Lymph % (Auto) 31.0 (20-40) % Green % (Auto) 6.1 (2-11) % Eos % (Auto) 0.4 (0-4) % Baso % (Auto) 0.4 (0-2) % Lymph # (Auto) 2.2 (1.2-4.9) X10*3/uL Green # (Auto) 0.4 (0.1-1.2) X10*3/uL Eos # (Auto) 0.0 (0.0-0.4) X10*3/uL Baso # (Auto) 0.0 (0.0-0.2) X10*3/uL Abs Immat Gran (auto) 0.01 (0.00-0.03) X10*3/uL Absolute Neuts (auto) 4.4 (2.0-8.3) x10*3/uL Absolute Nucleated RBC 0.000 (0.0-0.012) X10*3/uL Nucleated RBC % (auto) 0.0 (0.0-0.2) /100WBC Sodium 139 (135-145) mmol/L Potassium 4.0 (3.3-5.1) mmol/L Chloride 107 (96-108) mmol/L Carbon Dioxide 23 (22-29) mmol/L Anion Gap 13 (12-20) BUN 15 (9-16) mg/dL Creatinine 0.99 (0.5-1.4) mg/dL Estim Creat Clear Calc 105.3 Estimated GFR > 60 Random Glucose 118 H (60-115) mg/dL Calcium 9.8 (8.4-10.2) mg/dL Magnesium 2.2 (1.6-2.6) mg/dL Total Bilirubin 0.8 (0.0-1.0) mg/dL AST 28 (5-31) U/L ALT 33 H (0-31) U/L Alkaline Phosphatase 93 (39-117) U/L Total Protein 7.7 (6.5-8.0) g/dL Albumin 4.5 (3.5-5.0) g/dL Beta HCG, Quant < 2 mIU/mL Urine Color Yellow Urine Appearance Cloudy Urine pH 5.5 (5.0-9.0) Ur Specific [place] 1.020 (1.005-1.025) Urine Protein Negative (Neg-Trace) mg/dL Urine Glucose (UA) Negative (Negative) mg/dL Urine Ketones Trace (Negative) mg/dL Urine Blood Negative (Negative) Urine Nitrite Negative (Negative) Ur Leukocyte Esterase Moderate (2+) H (Negative) Urine RBC 0-2 (0-2) /HPF Urine WBC 11-20 H (0-5) /HPF Ur Squamous Epith Cells 11-20 (0-2) /HPF Urine Bacteria 1+ (None Seen) Hyaline Casts 0-2 (0-2) /LPF <STEFFANY Marquez - Last Filed: 11/01/22 17:49> Independent Interpretation I performed an independent interpretation of an: CT Scan <STEFFANY Marquez - Last Filed: 11/01/22 17:49> Interpretation: EXAMINATION: CT ABDOMEN AND PELVIS WITHOUT CONTRAST? CLINICAL INFORMATION: Left back and flank pain? COMPARISON: Renal ultrasound 10/16/2022, CT abdomen pelvis 11/06/2021? TECHNIQUE: Multidetector volumetric imaging was performed from the superior aspect of the liver through the pubic symphysis. Sagittal and coronal reformatted images were obtained on the technologist's workstation.? This CT examination was performed using dose optimization techniques as appropriate, variously including the following: *Automated exposure control *Adjustment of mA and/or kV according to patient size (this includes techniques or standardized protocols for targeted exams where dose is matched to indication/reason for exam; i.e. extremities or head) *Use of iterative reconstruction technique DLP: 936 mGy-cm FINDINGS: LUNG BASES: The visualized lung bases are unremarkable.? LIVER, GALLBLADDER, AND BILIARY TREE: Mild hepatic hypoattenuation/steatosis. Normal hepatic size. No liver lesion or biliary ductal dilation. The gallbladder is unremarkable with no evidence of radiopaque gallstones, gallbladder wall thickening, or obvious pericholecystic inflammatory changes.? PANCREAS: Unremarkable.? SPLEEN: Unremarkable.? ADRENAL GLANDS: Unremarkable.? KIDNEYS AND URETERS: The kidneys are normal in size, shape, and attenuation. No hydronephrosis, hydroureter, or calculi seen. No perinephric stranding. ? BLADDER: Unremarkable.? GASTROINTESTINAL TRACT: No dilated bowel loops. No bowel wall thickening. Normal appendix. No free air or ascites.? ABDOMINAL WALL: No significant hernia is appreciated.? LYMPH NODES: Normal. VASCULAR: Unremarkable. PELVIC VISCERA: Gynecologic structures grossly unremarkable, limited assessment. No free pelvic fluid.? OSSEOUS STRUCTURES: No acute fracture or suspicious appearing osseous lesion.? CT/CT abdomen pelvis wo IV con IMPRESSION: 1.? No renal/ureteral calculi. No hydronephrosis. 2.? No acute intra-abdominal process identified. 3.? Mild hepatic steatosis. <STEFFANY Marquez - Last Filed: 11/01/22 17:49> Radiology Impression Discussion of test interpretation with radiology: I have reviewed the radiologist's reading. <STEFFANY Marquez - Last Filed: 11/01/22 17:49> Prescription Management I considered prescription management with: Antibiotic <STEFFANY Marquez - Last Filed: 11/01/22 17:49> Discharge Plan Discharge Clinical Impression: UTI (urinary tract infection) <STEFFANY Maxwell - Last Filed: 11/01/22 13:39> Patient Disposition: Home, Self-Care <STEFFANY Maxwell - Last Filed: 11/01/22 13:39> Instructions: Urinary Tract Infection in Women (ED) <STEFFANY Maxwell - Last Filed: 11/01/22 13:39> Prescriptions: New nitrofurantoin monohyd/m-cryst [Macrobid] 100 mg capsule 100 mg PO BID 7 Days Qty: 14 0RF Rx Instructions: must administer with a meal/food No Action cholecalciferol (vitamin D3) 1,250 mcg (50,000 unit) capsule 1,250 mcg PO QWEEK Qty: 13 0RF pantoprazole 40 mg tablet,delayed release (DR/EC) 40 mg PO DAILY@0630 Qty: 30 2RF sertraline 50 mg tablet 50 mg PO DAILY mirtazapine 15 mg tablet 15 mg PO BEDTIME prednisone 20 mg tablet 40 mg PO DAILY Qty: 10 0RF tramadol 50 mg tablet 50 mg PO Q6H PRN (Reason: pain) Qty: 20 0RF clonidine HCl 0.1 mg tablet 0.1 mg PO BEDTIME amlodipine 5 mg tablet 5 mg PO DAILY 90 Days Qty: 90 1RF Protocol: Hold for SBP< HOLD for SBP < : 90 <STEFFANY Maxwlel - Last Filed: 11/01/22 13:39> Referrals: Gauri Samano MD [Primary Care Provider] - 2 days <STEFFANY Maxwell - Last Filed: 11/01/22 13:39> Stand Alone Forms: Work/School Release <STEFFANY Maxwell - Last Filed: 11/01/22 13:39>
[2022-11-01 13:36] VITALS: BP 172/105; PULSE 83; RESP 18; TEMP 36.1; O2SAT 98; BMI 44.2
[2022-11-01 14:00] LABS: MANUAL DIFF FLAG NO
[2022-11-01 14:02] LABS: Basophils Percent Auto 0.4 % (0-2); Eosinophils Percent Auto 0.4 % (0-4); Hematocrit 43.3 % (37.0-47.0); Hemoglobin 14.9 g/dl (12.0-16.0); Imm Gran Abs Auto 0.01 X10*3/uL (0.00-0.03); Imm Gran Pct Auto 0.1 % (0.0-0.4); Lymphocytes Absolute Auto 2.2 X10*3/uL (1.2-4.9); Mean Corpuscular HGB Conc 34.4 g/dl (31.0-35.0); Mean Corpuscular Hemoglobin 27.7 pg (27.0-33.0); Mean Corpuscular Volume 80.5 fL (80.0-98.0); Mean Platelet Volume 9.7 fL (9.4-12.3); Monocytes Absolute Auto 0.4 X10*3/uL (0.1-1.2); Monocytes Percent Auto 6.1 % (2-11); Neutrophils Absolute Auto 4.4 x10*3/uL (2.0-8.3); Platelet Count 314 X10*3/uL (160-400); Red Blood Count 5.38 X10*6/uL (4.20-5.50); Red Cell Distribution Width 13.3 % (11.0-16.0)
[2022-11-01 14:27] LABS: Alanine Aminotransferase 33 U/L (0-31); Albumin Level 4.5 g/dL (3.5-5.0); Alkaline Phosphatase 93 U/L (39-117); Anion Gap 13 (12-20); Aspartate Amino Transferase 28 U/L (5-31); Bilirubin Total 0.8 mg/dL (0.0-1.0); Blood Urea Nitrogen 15 mg/dL (9-16); Calcium 9.8 mg/dL (8.4-10.2); Carbon Dioxide 23 mmol/L (22-29); Chloride 107 mmol/L (96-108); Creatinine Clr Calc Pharmacy 105.3; Estimated Glomerular Filt Rate > 60; Glucose Random 118 mg/dL (60-115); HCG Quantitative < 2 mIU/mL; Magnesium 2.2 mg/dL (1.6-2.6); Sodium 139 mmol/L (135-145); Total Protein 7.7 g/dL (6.5-8.0)
[2022-11-01] MEDS: Ketorolac Tromethamine 30 MG/ML VIAL IM (16:22)
[2022-11-01] MEDS: Ondansetron ODT 4 MG TAB.RAPDIS TRANSLINGU (16:24)
[2022-11-01 17:35] LABS: Appearance Urine Cloudy; Color Urine Yellow; Glucose Urine UA Negative (Negative); Leukocyte Esterase Urine Moderate (2+) (Negative); Nitrite Urine Negative (Negative); PH 5.5 (5.0-9.0); UMIC TRIGGER UACC YES; Urine Blood Negative (Negative); Urine Ketones Trace mg/dL (Negative); Urine Protein Negative (Neg-Trace)
[2022-11-01 17:40] LABS: Bacteria Urine 1+ (None Seen); Hyaline Casts Urine 0-2 /LPF (0-2); RBC Urine 0-2 /HPF (0-2); UACC Culture Trigger YES
[2022-11-01 17:48] VITALS: BP 107/82; PULSE 64; RESP 18; TEMP 36.9; O2SAT 100
== END 2022-11-01 18:00 | disposition home or self-care (01) ==
PROVIDERS: Physician Assistant Medical; Emergency Provider Student in an Organized Health Care Education/Training Program; PCP Internal Medicine
DX: N39.0 Urinary tract infection, site not specified (principal); B95.1 Streptococcus, group B, as the cause of diseases classified elsewhere; R10.9 Unspecified abdominal pain; I10 Essential (primary) hypertension; F64.0 Transsexualism; F17.290 Nicotine dependence, other tobacco product, uncomplicated; F12.90 Cannabis use, unspecified, uncomplicated; E66.9 Obesity, unspecified; Z68.41 Body mass index [BMI] 40.0-44.9, adult; Z79.899 Other long term (current) drug therapy
CPT/HCPCS: 36415; 74176; 80053; 81001; 83735; 84702; 85025; 87086; 87147; 96372; 99283; 99284; J1885

== ENCOUNTER → 2022-11-26 09:14 | Outpatient (BNVA) | payer OTHER, SELFPAY | PROVIDERS: PCP Internal Medicine; Visit Provider Nurse Practitioner Family | DX: K21.9 Gastro-esophageal reflux disease without esophagitis (principal); K58.2 Mixed irritable bowel syndrome | CPT/HCPCS: 99212 ==

== ENCOUNTER 2022-12-13 21:34 | Emergency (ER) | payer OTHER, SELFPAY ==
[2022-12-13 21:51] VITALS: BP 160/99; PULSE 91; RESP 18; TEMP 36.7; O2SAT 97; BMI 44.2
--- NOTE | 2022-12-13 22:00 | MHC.EDTECH ---
patient blood drawn ,covid and flu swab collected and sent to lab ,pt was not able to give a urine sample at this time .
[2022-12-13 22:17] LABS: MANUAL DIFF FLAG NO
[2022-12-13 22:18] LABS: Basophils Percent Auto 0.3 % (0-2); Eosinophils Absolute Auto 0.1 X10*3/uL (0.0-0.4); Eosinophils Percent Auto 0.7 % (0-4); Hematocrit 40.5 % (37.0-47.0); Hemoglobin 13.9 g/dl (12.0-16.0); Imm Gran Abs Auto 0.02 X10*3/uL (0.00-0.03); Imm Gran Pct Auto 0.2 % (0.0-0.4); Lymphocytes Absolute Auto 3.4 X10*3/uL (1.2-4.9); Mean Corpuscular HGB Conc 34.3 g/dl (31.0-35.0); Mean Corpuscular Hemoglobin 27.9 pg (27.0-33.0); Mean Corpuscular Volume 81.3 fL (80.0-98.0); Mean Platelet Volume 9.2 fL (9.4-12.3); Monocytes Absolute Auto 0.5 X10*3/uL (0.1-1.2); Monocytes Percent Auto 5.9 % (2-11); Neutrophils Absolute Auto 5.1 x10*3/uL (2.0-8.3); Neutrophils Percent Auto 55.9 % (45-73); Platelet Count 346 X10*3/uL (160-400); Red Blood Count 4.98 X10*6/uL (4.20-5.50); Red Cell Distribution Width 13.1 % (11.0-16.0); White Blood Count 9.1 X10*3/uL (4.8-10.8)
[2022-12-13 22:31] LABS: COVID-19 Test Negative (Negative); IDNOW Serial# 16C4AD1C; IDNOW Serial# BCCEAD1C; Influenza A Negative (Negative); Influenza B2 Negative (Negative)
[2022-12-13 22:36] LABS: Alanine Aminotransferase 38 U/L (0-31); Alkaline Phosphatase 105 U/L (39-117); Anion Gap 13 (12-20); Aspartate Amino Transferase 30 U/L (5-31); Bilirubin Total 0.3 mg/dL (0.0-1.0); Blood Urea Nitrogen 10 mg/dL (9-16); Calcium 8.6 mg/dL (8.4-10.2); Carbon Dioxide 23 mmol/L (22-29); Chloride 108 mmol/L (96-108); Estimated Glomerular Filt Rate > 60; Glucose Random 123 mg/dL (60-115); Potassium 3.7 mmol/L (3.3-5.1); Sodium 140 mmol/L (135-145); Total Protein 6.9 g/dL (6.5-8.0)
--- NOTE | 2022-12-13 22:40 | MHC.EDTECH ---
pt urine sample collected and sent to lab .
[2022-12-13 22:50] LABS: Appearance Urine Cloudy; Color Urine Yellow; Glucose Urine UA Negative (Negative); Leukocyte Esterase Urine Negative (Negative); Nitrite Urine Negative (Negative); Urine Blood Negative (Negative); Urine Ketones Negative (Negative); Urine Protein Negative (Neg-Trace)
[2022-12-13 22:52] LABS: UPreg QC Valid YES; Urine Pregnancy NEGATIVE (NEGATIVE)
[2022-12-14 00:44] VITALS: BP 145/83; PULSE 77; RESP 20; TEMP 36.8; O2SAT 99
--- NOTE | 2022-12-14 00:59 | ED.GENADULT ---
HPI - General Adult General Chief complaint: General Medical Stated complaint: abd pain, difficulty breathing, dizzy Time Seen by Provider: 12/14/22 00:46 Source: patient Mode of arrival: ambulatory Limitations: no limitations History of Present Illness HPI narrative: Patient comes to the emergency room complaining of 2-3 weeks of sore throat, generalized malaise, weakness. Patient denies nausea vomiting diarrhea. No fever chills. Patient denies UTI symptoms. Patient states that sometimes she has, nausea, upper left quadrant pain. At this time, patient's main concern is a generalized weakness. Patient states that she does have chronic fatigue but it has been much worse over the last week Related Data Home Medications Medication Instructions Recorded Confirmed clonidine HCl 0.1 mg tablet 0.1 mg PO BEDTIME 12/07/21 10/22/22 sertraline 50 mg tablet 50 mg PO DAILY 08/24/22 10/22/22 mirtazapine 15 mg tablet 15 mg PO BEDTIME 10/22/22 10/22/22 Previous Rx's Medication Instructions Recorded cholecalciferol (vitamin D3) 1,250 1,250 mcg PO QWEEK #13 caps 09/11/22 mcg (50,000 unit) capsule prednisone 20 mg tablet 40 mg PO DAILY #10 tabs 09/26/22 tramadol 50 mg tablet 50 mg PO Q6H PRN pain #20 tabs 09/26/22 amlodipine 5 mg tablet 5 mg PO DAILY 90 days #90 tabs 10/22/22 pantoprazole 40 mg tablet,delayed 40 mg PO DAILY@0630 #30 tabs 10/23/22 release nitrofurantoin 100 mg PO BID 7 days #14 caps 11/01/22 monohydrate/macrocrystals 100 mg capsule (Macrobid) polyethylene glycol 3350 17 17 g PO DAILY #510 grams 11/26/22 gram/dose oral powder (Miralax) sucralfate 1 gram tablet 1 g PO BEDTIME #30 tabs 11/26/22 Allergies Allergy/AdvReac Type Severity Reaction Status Date / Time shellfish derived Allergy Intermediate HIVES Verified 12/13/22 21:55 [SHELLFISH DERIVED] SWOLLEN FACE Yoder And Derivatives Allergy Unknown hives Verified 12/13/22 21:55 [CITRUS] SEAFOOD Allergy Unknown ANGIOEDEMA Uncoded 11/26/22 09:20 Review of Systems Review of Systems: Constitutional : No Weight loss, No Fever, No Chills, No Night Sweats, complaining of Fatigue, No Malaise ENT/Mouth : No Hearing loss, No Ear Pain, No Nasal Congestion, No Sinus Pain, No Hoarseness, complaining of sore throat, No Rhinorrhea, No Swallowing Difficulty Eyes: No Eye Pain, No Swelling, No Redness, No Foreign Body, No Discharge, No Vision Changes Cardiovascular : No Chest Pain, No SOB, No Dyspnea on Exertion, No Orthopnea, No Edema, No Palpitations Respiratory : No Cough, No Sputum, No Wheezing, No Smoke Exposure, No Dyspnea Gastrointestinal : Complaining of Nausea, No Vomiting, No Diarrhea, No Constipation, complaining of left upper quadrant pain intermittently, No Hematochezia, No Melena Genitourinary : no irregular bleeding, No Dysuria, No Urinary Frequency, No Hematuria, No Urinary Incontinence, No Urgency, No Flank Pain, No Urinary Flow Changes, No Hesitancy Musculoskeletal : No joint pain, No Myalgias, No Joint Swelling Skin : No Skin Lesions, No rash Neuro : No Weakness, No Numbness, No Paresthesias, No Loss of Consciousness, No Dizziness, No Headache Psych : No Anxiety/Panic, No Depression, No SI/HI/AH/VH, No Social Issues, Heme/Lymph: No Bruising, No Bleeding,No Lymphadenopathy Endocrine : No Polyuria, No Polydipsia, No Temperature Intolerance PMFSH Past Medical History Medical History Blurred vision, bilateral Depression Esophagitis Essential hypertension Family history of systemic lupus erythematosus Gastric ulcer Heartburn Impaired fasting glucose Insomnia Lumbago with sciatica, left side Mid back pain on left side Obesity (BMI 30-39.9) Polyarthralgia Positive KERI (antinuclear antibody) Vitamin D deficiency Surgical History Hx of colonoscopy Hx of esophagogastroduodenoscopy Family History Family History Father History of renal dialysis Chronic kidney disease (CKD) Substance use disorder Mental health disorder Mother Substance use disorder Mental health disorder Brother Mental health disorder Brother Mental health disorder Brother Mental health disorder Brother Mental health disorder Sister Mental health disorder Sister Mental health disorder Social History Social History Household Members: Family and Other Household Members Other:: Aunt Housing: Apartment Alcohol intake: former Patient Tobacco Use Status: Never used Tobacco e-Cigarette/Vaping Use: Currently Using Second Hand Smoke Exposure: Yes Substance Use Type: Marijuana Advance Directives: No Advance Directives Information Provided: No service: No Current occupational status: employed Current occupation: [employer] Sexual orientation: Lesbian/Lomas/Homosexual Cognitive needs: No Hearing needs: No Vision needs: No Physical Exam ED Vital Signs: Vital Signs - 24 hr 12/13/22 21:51 12/14/22 00:44 Temperature 98.0 F 98.2 F Pulse Rate 91 77 Respiratory Rate 18 20 Blood Pressure 160/99 H 145/83 H Pulse Oximetry 97 99 Oxygen Delivery Method Room Air Room Air BMI result Body Mass Index 44.2 Const Other: Appearance: Alert. Oriented X3. No acute distress. Eyes: Pupils equal, round and reactive to light. ENT: Pharynx normal. No exudates, no erythema Neck: Normal inspection. Neck supple. No lymph nodes noted. No crepitus CVS: Normal heart rate and rhythm. Pulses normal. Normal S1 and S2 Respiratory: No respiratory distress. Breath sounds normal. No Wheezing. No rales Abdomen: Soft and nontender. No rigidity. No distention. Skin: Skin warm and dry. Normal skin color. Normal skin turgor. Extremities: No lower extremity edema. No Lacerations. No Rash Neuro: Oriented X 3. No motor deficit. No sensory deficit. Moving all extremities. No slurred speech. CN 2 through 12 grossly intact Psych: calm, cooperative, normal affect Course Course Course Narrative: -patient's labs are unremarkable, white blood cell count within normal limits, electrolytes all normal, urinalysis negative, patient tested negative for influenza and COVID. -patient's labs for strep and mononucleosis pending Medical Decision Making Medical Decision Making MDM Narrative: Patient tested negative for influenza, COVID, mono, strep Patient likely having a viral illness. Patient states that she has chronic fatigue, instructed to follow up with PCP, patient may be having depression Differential Diagnosis Differential Diagnoses: The differential diagnosis associated with the presentation includes (Viral illness, influenza, COVID, mononucleosis, strep pharyngitis) Lab Data [facility] Lab Attestation statement: I reviewed the patient's lab results. 12/13/22 22:12 12/13/22 22:12 Labs: Lab Results 12/13/22 12/13/22 12/13/22 Range/Units 22:12 22:12 22:12 WBC 9.1 (4.8-10.8) X10*3/uL RBC 4.98 (4.20-5.50) X10*6/uL Hgb 13.9 (12.0-16.0) g/dl Hct 40.5 (37.0-47.0) % MCV 81.3 (80.0-98.0) fL MCH 27.9 (27.0-33.0) pg MCHC 34.3 (31.0-35.0) g/dl RDW 13.1 (11.0-16.0) % Plt Count 346 (160-400) X10*3/uL MPV 9.2 L (9.4-12.3) fL Immature Gran % (Auto) 0.2 (0.0-0.4) % Neut % (Auto) 55.9 (45-73) % Lymph % (Auto) 37.0 (20-40) % [place] % (Auto) 5.9 (2-11) % Eos % (Auto) 0.7 (0-4) % Baso % (Auto) 0.3 (0-2) % Lymph # (Auto) 3.4 (1.2-4.9) X10*3/uL [place] # (Auto) 0.5 (0.1-1.2) X10*3/uL Eos # (Auto) 0.1 (0.0-0.4) X10*3/uL Baso # (Auto) 0.0 (0.0-0.2) X10*3/uL Abs Immat Gran (auto) 0.02 (0.00-0.03) X10*3/uL Absolute Neuts (auto) 5.1 (2.0-8.3) x10*3/uL Absolute Nucleated RBC 0.000 (0.0-0.012) X10*3/uL Nucleated RBC % (auto) 0.0 (0.0-0.2) /100WBC Sodium 140 (135-145) mmol/L Potassium 3.7 (3.3-5.1) mmol/L Chloride 108 (96-108) mmol/L Carbon Dioxide 23 (22-29) mmol/L Anion Gap 13 (12-20) BUN 10 (9-16) mg/dL Creatinine 0.82 (0.5-1.4) mg/dL Estim Creat Clear Calc 126.0 Estimated GFR > 60 Random Glucose 123 H (60-115) mg/dL Calcium 8.6 D (8.4-10.2) mg/dL Total Bilirubin 0.3 (0.0-1.0) mg/dL AST 30 (5-31) U/L ALT 38 H (0-31) U/L Alkaline Phosphatase 105 (39-117) U/L Total Protein 6.9 (6.5-8.0) g/dL Albumin 4.0 (3.5-5.0) g/dL Urine Color Urine Appearance Urine pH (5.0-9.0) Ur Specific [place] (1.005-1.025) Urine Protein (Neg-Trace) mg/dL Urine Glucose (UA) (Negative) mg/dL Urine Ketones (Negative) mg/dL Urine Blood (Negative) Urine Nitrite (Negative) Ur Leukocyte Esterase (Negative) Urine Test (NEGATIVE) COVID-19 (EL[facility]ETH) (Negative) COVID-19 Clin Com Monoscreen (Negative) Influenza Type A (ROSEMARY) Negative (Negative) Influenza Type B (ROSEMARY) Negative (Negative) Influenza A & B Note See Note S. pyogenes GrpA ROSEMARY (Negative) 12/13/22 12/13/22 12/13/22 Range/Units 22:12 22:12 22:39 WBC (4.8-10.8) X10*3/uL RBC (4.20-5.50) X10*6/uL Hgb (12.0-16.0) g/dl Hct (37.0-47.0) % MCV (80.0-98.0) fL MCH (27.0-33.0) pg MCHC (31.0-35.0) g/dl RDW (11.0-16.0) % Plt Count (160-400) X10*3/uL MPV (9.4-12.3) fL Immature Gran % (Auto) (0.0-0.4) % Neut % (Auto) (45-73) % Lymph % (Auto) (20-40) % [place] % (Auto) (2-11) % Eos % (Auto) (0-4) % Baso % (Auto) (0-2) % Lymph # (Auto) (1.2-4.9) X10*3/uL [place] # (Auto) (0.1-1.2) X10*3/uL Eos # (Auto) (0.0-0.4) X10*3/uL Baso # (Auto) (0.0-0.2) X10*3/uL Abs Immat Gran (auto) (0.00-0.03) X10*3/uL Absolute Neuts (auto) (2.0-8.3) x10*3/uL Absolute Nucleated RBC (0.0-0.012) X10*3/uL Nucleated RBC % (auto) (0.0-0.2) /100WBC Sodium (135-145) mmol/L Potassium (3.3-5.1) mmol/L Chloride (96-108) mmol/L Carbon Dioxide (22-29) mmol/L Anion Gap (12-20) BUN (9-16) mg/dL Creatinine (0.5-1.4) mg/dL Estim Creat Clear Calc Estimated GFR Random Glucose (60-115) mg/dL Calcium (8.4-10.2) mg/dL Total Bilirubin (0.0-1.0) mg/dL AST (5-31) U/L ALT (0-31) U/L Alkaline Phosphatase (39-117) U/L Total Protein (6.5-8.0) g/dL Albumin (3.5-5.0) g/dL Urine Color Yellow Urine Appearance Cloudy Urine pH 7.0 (5.0-9.0) Ur Specific [place] 1.020 (1.005-1.025) Urine Protein Negative (Neg-Trace) mg/dL Urine Glucose (UA) Negative (Negative) mg/dL Urine Ketones Negative (Negative) mg/dL Urine Blood Negative (Negative) Urine Nitrite Negative (Negative) Ur Leukocyte Esterase Negative (Negative) Urine Test (NEGATIVE) COVID-19 (EL[facility]ETH) Negative (Negative) COVID-19 Clin Com See Note Monoscreen Negative (Negative) Influenza Type A (ROSEMARY) (Negative) Influenza Type B (ROSEMARY) (Negative) Influenza A & B Note S. pyogenes GrpA ROSEMARY (Negative) 12/13/22 12/14/22 Range/Units 22:39 01:06 WBC (4.8-10.8) X10*3/uL RBC (4.20-5.50) X10*6/uL Hgb (12.0-16.0) g/dl Hct (37.0-47.0) % MCV (80.0-98.0) fL MCH (27.0-33.0) pg MCHC (31.0-35.0) g/dl RDW (11.0-16.0) % Plt Count (160-400) X10*3/uL MPV (9.4-12.3) fL Immature Gran % (Auto) (0.0-0.4) % Neut % (Auto) (45-73) % Lymph % (Auto) (20-40) % [place] % (Auto) (2-11) % Eos % (Auto) (0-4) % Baso % (Auto) (0-2) % Lymph # (Auto) (1.2-4.9) X10*3/uL [place] # (Auto) (0.1-1.2) X10*3/uL Eos # (Auto) (0.0-0.4) X10*3/uL Baso # (Auto) (0.0-0.2) X10*3/uL Abs Immat Gran (auto) (0.00-0.03) X10*3/uL Absolute Neuts (auto) (2.0-8.3) x10*3/uL Absolute Nucleated RBC (0.0-0.012) X10*3/uL Nucleated RBC % (auto) (0.0-0.2) /100WBC Sodium (135-145) mmol/L Potassium (3.3-5.1) mmol/L Chloride (96-108) mmol/L Carbon Dioxide (22-29) mmol/L Anion Gap (12-20) BUN (9-16) mg/dL Creatinine (0.5-1.4) mg/dL Estim Creat Clear Calc Estimated GFR Random Glucose (60-115) mg/dL Calcium (8.4-10.2) mg/dL Total Bilirubin (0.0-1.0) mg/dL AST (5-31) U/L ALT (0-31) U/L Alkaline Phosphatase (39-117) U/L Total Protein (6.5-8.0) g/dL Albumin (3.5-5.0) g/dL Urine Color Urine Appearance Urine pH (5.0-9.0) Ur Specific [place] (1.005-1.025) Urine Protein (Neg-Trace) mg/dL Urine Glucose (UA) (Negative) mg/dL Urine Ketones (Negative) mg/dL Urine Blood (Negative) Urine Nitrite (Negative) Ur Leukocyte Esterase (Negative) Urine Test NEGATIVE (NEGATIVE) COVID-19 ([facility]ETH) (Negative) COVID-19 Clin Com Monoscreen (Negative) Influenza Type A (ROSEMARY) (Negative) Influenza Type B (ROSEMARY) (Negative) Influenza A & B Note S. pyogenes GrpA ROSEMARY Negative (Negative) Discharge Plan Discharge Clinical Impression: Chronic fatigue, Acute viral syndrome Patient Disposition: Home, Self-Care Instructions: Fatigue (ED) Additional Instructions: Please follow-up with your primary care physician tomorrow. If you have any worsening or new symptoms, please return to the emergency room or call 911 Prescriptions: No Action cholecalciferol (vitamin D3) 1,250 mcg (50,000 unit) capsule 1,250 mcg PO QWEEK Qty: 13 0RF pantoprazole 40 mg tablet,delayed release (DR/EC) 40 mg PO DAILY@0630 Qty: 30 2RF sertraline 50 mg tablet 50 mg PO DAILY mirtazapine 15 mg tablet 15 mg PO BEDTIME prednisone 20 mg tablet 40 mg PO DAILY Qty: 10 0RF tramadol 50 mg tablet 50 mg PO Q6H PRN (Reason: pain) Qty: 20 0RF nitrofurantoin monohyd/m-cryst [Macrobid] 100 mg capsule 100 mg PO BID 7 Days Qty: 14 0RF Rx Instructions: must administer with a meal/food clonidine HCl 0.1 mg tablet 0.1 mg PO BEDTIME sucralfate 1 gram tablet 1 g PO BEDTIME Qty: 30 1RF polyethylene glycol 3350 [Miralax] 17 gram/dose powder 17 g PO DAILY Qty: 510 2RF amlodipine 5 mg tablet 5 mg PO DAILY 90 Days Qty: 90 1RF Protocol: Hold for SBP< HOLD for SBP < : 90
[2022-12-14 01:12] LABS: Monotest Negative (Negative)
[2022-12-14 01:21] LABS: IDNOW Serial# 6674DD1D; Strep A Nucleic Acid Negative (Negative)
[2022-12-14 02:15] VITALS: BP 153/68; PULSE 79; RESP 20; O2SAT 98
== END 2022-12-14 02:31 | disposition home or self-care (01) ==
PROVIDERS: Emergency Provider Emergency Medicine; PCP Internal Medicine
DX: R53.82 Chronic fatigue, unspecified (principal); B34.9 Viral infection, unspecified; R10.9 Unspecified abdominal pain; R06.00 Dyspnea, unspecified; J02.9 Acute pharyngitis, unspecified
CPT/HCPCS: 36415; 80053; 81003; 81025; 85025; 86308; 87502; 87635; 87651; 99283

== ENCOUNTER 2022-12-16 19:27 | Emergency (ER) | payer OTHER, SELFPAY ==
--- NOTE | ~2022-12-16 | XR_ITS ---
EXAMINATION: XR CHEST CLINICAL INFORMATION: Chest pain COMPARISON: Chest 09/25/2022 TECHNIQUE: 2 views of the chest were obtained. FINDINGS: No significant abnormality is noted involving the heart, lungs, mediastinum, bony thorax or soft tissues. XR/XR chest 2V IMPRESSION: Unremarkable chest examination.
--- NOTE | 2022-12-16 19:29 | ECG_ITS ---
Test Reason : chest pain Blood Pressure : / mmHG Vent. Rate : 082 BPM Atrial Rate : 082 BPM P-R Int : 144 ms QRS Dur : 088 ms QT Int : 360 ms P-R-T Axes : 038 003 139 degrees QTc Int : 420 ms Normal sinus rhythm ST & T wave abnormality, consider lateral ischemia Abnormal ECG When compared with ECG of 25-SEP-2022 23:05, No significant change was found Referred By: Polina Cueto Electronically Signed By:King Romero
[2022-12-16 20:30] VITALS: BP 154/107; PULSE 90; RESP 16; TEMP 36.9; O2SAT 99; BMI 44.2
--- NOTE | 2022-12-16 20:32 | ED_ITS ---
HPI - Chest Pain General Chief Complaint: General Medical <STEFFANY Marquez - Last Filed: 12/16/22 20:36> Stated Complaint: sob,chest pain <STEFFANY Marquez - Last Filed: 12/16/22 20:36> Time Seen by Provider: 12/17/22 01:44 <STEFFANY Marquez - Last Filed: 12/16/22 20:36> Source: patient <Regina Bridges MD - Last Filed: 12/17/22 01:59> Mode of arrival: ambulatory <Regina Bridges MD - Last Filed: 12/17/22 01:59> Limitations: no limitations <Regina Bridges MD - Last Filed: 12/17/22 01:59> History of Present Illness HPI narrative: Patient comes to the emergency room complaining of diffuse body aches. Patient states that every day she has trouble getting up in the morning, it hurts to get up. Patient states she has full body aches, feeling chronically fa tigued. Having little energy, trouble sleeping, patient states that she does not enjoyed doing the things that he used to because of how he feels. Patient denies SI <Regina Bridges MD - Last Filed: 12/17/22 01:59> Related Data Home Medications: Home Medications Medication Instructions Recorded Confirmed clonidine HCl 0.1 mg tablet 0.1 mg PO BEDTIME 12/07/21 10/22/22 sertraline 50 mg tablet 50 mg PO DAILY 08/24/22 10/22/22 mirtazapine 15 mg tablet 15 mg PO BEDTIME 10/22/22 10/22/22 Previous Rx's Medication Instructions Recorded cholecalciferol (vitamin D3) 1,250 1,250 mcg PO QWEEK #13 caps 09/11/22 mcg (50,000 unit) capsule prednisone 20 mg tablet 40 mg PO DAILY #10 tabs 09/26/22 tramadol 50 mg tablet 50 mg PO Q6H PRN pain #20 tabs 09/26/22 amlodipine 5 mg tablet 5 mg PO DAILY 90 days #90 tabs 10/22/22 pantoprazole 40 mg tablet,delayed 40 mg PO DAILY@0630 #30 tabs 10/23/22 release nitrofurantoin 100 mg PO BID 7 days #14 caps 11/01/22 monohydrate/macrocrystals 100 mg capsule (Macrobid) polyethylene glycol 3350 17 17 g PO DAILY #510 grams 11/26/22 gram/dose oral powder (Miralax) sucralfate 1 gram tablet 1 g PO BEDTIME #30 tabs 11/26/22 ketorolac 10 mg tablet 10 mg PO BID PRN pain 5 days #7 12/17/22 tabs <STEFFANY Marquez - Last Filed: 12/16/22 20:36> Allergies/Adverse Reactions: Allergies Allergy/AdvReac Type Severity Reaction Status Date / Time shellfish derived Allergy Intermediate HIVES Verified 12/13/22 21:55 [SHELLFISH DERIVED] SWOLLEN FACE [place] And Derivatives Allergy Unknown hives Verified 12/13/22 21:55 [CITRUS] SEAFOOD Allergy Unknown ANGIOEDEMA Uncoded 11/26/22 09:20 <STEFFANY Marquez - Last Filed: 12/16/22 20:36> Review of Systems Review of Systems: Constitutional : No Weight loss, No Fever, No Chills, No Night Sweats fatigue ENT/Mouth : No Hearing loss, No Ear Pain, No Nasal Congestion, No Sinus Pain, No Hoarseness, No sore throat, No Rhinorrhea, No Swallowing Difficulty Eyes: No Eye Pain, No Swelling, No Redness, No Foreign Body, No Discharge, No Vision Changes Cardiovascular : Patient mentioned that she does have chest pain. However, she says her whole body hurts., No SOB, No Dyspnea on Exertion, No Orthopnea, No Edema, No Palpitations Respiratory : No Cough, No Sputum, No Wheezing, No Smoke Exposure, No Dyspnea Gastrointestinal : No Nausea, No Vomiting, No Diarrhea, No Constipation, No abdominal Pain, No Hematochezia, No Melena Genitourinary : no irregular bleeding, No Dysuria, No Urinary Frequency, No Hematuria, No Urinary Incontinence, No Urgency, No Flank Pain, No Urinary Flow Changes, No Hesitancy Musculoskeletal : No joint pain, No Myalgias, No Joint Swelling Skin : No Skin Lesions, No rash Neuro : No Weakness, No Numbness, No Paresthesias, No Loss of Consciousness, No Dizziness, No Headache Psych : No Anxiety/Panic, No Depression, No SI/HI/AH/VH, No Social Issues, Heme/Lymph: No Bruising, No Bleeding,No Lymphadenopathy Endocrine : No Polyuria, No Polydipsia, No Temperature Intolerance <Regina Bridges MD - Last Filed: 12/17/22 01:59> [facility] Past Medical History Medical History: Medical History Blurred vision, bilateral Depression Esophagitis Essential hypertension Family history of systemic lupus erythematosus Gastric ulcer Heartburn Impaired fasting glucose Insomnia Lumbago with sciatica, left side Mid back pain on left side Obesity (BMI 30-39.9) Polyarthralgia Positive KERI (antinuclear antibody) Vitamin D deficiency <STEFFANY Marquez - Last Filed: 12/16/22 20:36> Surgical History: Surgical History Hx of colonoscopy Hx of esophagogastroduodenoscopy <STEFFANY Marquez - Last Filed: 12/16/22 20:36> Family History Family History: Family History Father History of renal dialysis Chronic kidney disease (CKD) Substance use disorder Mental health disorder Mother Substance use disorder Mental health disorder Brother Mental health disorder Brother Mental health disorder Brother Mental health disorder Brother Mental health disorder Sister Mental health disorder Sister Mental health disorder <STEFFANY Marquez - Last Filed: 12/16/22 20:36> Social History Social History: Social History Household Members: Family and Other Household Members Other:: Aunt Housing: Apartment Alcohol intake: former Patient Tobacco Use Status: Never used Tobacco e-Cigarette/Vaping Use: Currently Using Second Hand Smoke Exposure: Yes Substance Use Type: Marijuana Advance Directives: No Advance Directives Information Provided: Yes service: No Current occupational status: employed Current occupation: [employer] Sexual orientation: Lesbian/Lomas/Homosexual Cognitive needs: No Hearing needs: No Vision needs: No <STEFFANY Marquez - Last Filed: 12/16/22 20:36> Physical Exam Vital Signs: Vital Signs: Last Vital Signs Temp 98.5 F 12/16/22 20:30 Pulse 90 12/16/22 20:30 Resp 16 12/16/22 20:30 BP 154/107 H 12/16/22 20:30 Pulse Ox 99 12/16/22 20:30 O2 Del Method 12/16/22 20:30 BMI result Body Mass Index 44.2 <STEFFANY Marquez - Last Filed: 12/16/22 20:36> Vital Signs: Last Vital Signs Temp 98.5 F 12/16/22 20:30 Pulse 90 12/16/22 20:30 Resp 16 12/16/22 20:30 BP 154/107 H 12/16/22 20:30 Pulse Ox 99 12/16/22 20:30 O2 Del Method 12/16/22 20:30 BMI result Body Mass Index 44.2 <Regina Bridges MD - Last Filed: 12/17/22 01:59> Const: Other: Appearance: Alert. Oriented X3. No acute distress. Eyes: Pupils equal, round and reactive to light. ENT: Pharynx normal. Neck: Normal inspection. Neck supple. No lymph nodes noted. No crepitus CVS: Normal heart rate and rhythm. Pulses normal. Normal S1 and S2 Respiratory: No respiratory distress. Breath sounds normal. No Wheezing. No rales Abdomen: Soft and nontender. No rigidity. No distention. Skin: Skin warm and dry. Normal skin color. Normal skin turgor. Extremities: No lower extremity edema. No Lacerations. No Rash Neuro: Oriented X 3. No motor deficit. No sensory deficit. Moving all extremities. No slurred speech. CN 2 through 12 grossly intact Psych: calm, cooperative, teary <Regina Bridges MD - Last Filed: 12/17/22 01:59> Course Course Course Narrative: RME-20:32pm - 27yoF who is transitioning to male who goes by Servando with PMHX who is present ing to the ED with c/o of left sided chest pain that is radiating to left arm with dry cough/sob. Associated nausea. Denies fevers, Vomiting, abd pain, diarrhea, leg swelling or calf tenderness, recent travel or any other symptoms complaints or concerns at this time. Not on any OCPs. Not on any estrogen. No history of DVT or PE or recent surgery immobilization or history of cancer. Plan: Will obtain labs, EKG, chest x-ray and patient will be sent back to the waiting room to be evaluated in the ED. <STEFFANY Marquez - Last Filed: 12/16/22 20:36> Medical Decision Making Medical Decision Making [facility] Narrative: -I discussed with the patient her labs, they are unremarkable, troponin negative, chest x-ray negative -I discussed with the patient that given the list of symptoms that he presents with, he likely has depression. I discussed with the patient to follow up with his primary care physician as he may need further evaluation. -also, discussed with the patient that the chronic body aches that he is presenting with, could be a rheumatologic condition. Patient states that he already has an appointment pending with rheumatology -at this time, patient is willing to take IM Toradol to alleviate the whole-body pain. Patient instructed to have close follow-up with his primary care physician. <Regina Bridges MD - Last Filed: 12/17/22 01:59> Differential Diagnosis Differential Diagnoses: The differential diagnosis associated with the presentation includes (Viral syndrome, depression, polyarthralgia) <Regina Bridges MD - Last Filed: 12/17/22 01:59> Lab Data [facility] Lab Attestation statement: I reviewed the patient's lab results. <Regina Bridges MD - Last Filed: 12/17/22 01:59> Result Diagrams: 12/16/22 21:10 12/16/22 21:10 <STEFFANY Marquez - Last Filed: 12/16/22 20:36> Labs: Lab Results 12/16/22 12/16/22 12/16/22 Range/Units 21:10 21:10 21:11 WBC 9.9 (4.8-10.8) X10*3/uL RBC 5.11 (4.20-5.50) X10*6/uL Hgb 14.2 (12.0-16.0) g/dl Hct 41.8 (37.0-47.0) % MCV 81.8 (80.0-98.0) fL MCH 27.8 (27.0-33.0) pg MCHC 34.0 (31.0-35.0) g/dl RDW 13.1 (11.0-16.0) % Plt Count 349 (160-400) X10*3/uL MPV 9.2 L (9.4-12.3) fL Immature Gran % (Auto) 0.3 (0.0-0.4) % Neut % (Auto) 72.0 (45-73) % Lymph % (Auto) 23.1 (20-40) % [place] % (Auto) 4.0 (2-11) % Eos % (Auto) 0.1 (0-4) % Baso % (Auto) 0.5 (0-2) % Lymph # (Auto) 2.3 (1.2-4.9) X10*3/uL [place] # (Auto) 0.4 (0.1-1.2) X10*3/uL Eos # (Auto) 0.0 (0.0-0.4) X10*3/uL Baso # (Auto) 0.1 (0.0-0.2) X10*3/uL Abs Immat Gran (auto) 0.03 (0.00-0.03) X10*3/uL Absolute Neuts (auto) 7.1 (2.0-8.3) x10*3/uL Absolute Nucleated RBC 0.000 (0.0-0.012) X10*3/uL Nucleated RBC % (auto) 0.0 (0.0-0.2) /100WBC PT 11.9 (10.0-13.1) SEC INR 1.0 (0.9-1.1) Sodium 140 (135-145) mmol/L Potassium 3.9 (3.3-5.1) mmol/L Chloride 106 (96-108) mmol/L Carbon Dioxide 24 (22-29) mmol/L Anion Gap 14 (12-20) BUN 12 (9-16) mg/dL Creatinine 0.77 (0.5-1.4) mg/dL Estim Creat Clear Calc 134.2 Estimated GFR > 60 Random Glucose 103 (60-115) mg/dL Calcium 9.4 D (8.4-10.2) mg/dL Magnesium 1.8 (1.6-2.6) mg/dL Total Bilirubin 0.5 (0.0-1.0) mg/dL AST 39 H (5-31) U/L ALT 40 H (0-31) U/L Alkaline Phosphatase 106 (39-117) U/L Troponin I High Sens (<3.5-17.0) ng/L Total Protein 8.0 (6.5-8.0) g/dL Albumin 4.6 (3.5-5.0) g/dL Lipase 18 (8-78) U/L Beta HCG, Quant < 2 mIU/mL 12/16/22 Range/Units 21:11 WBC (4.8-10.8) X10*3/uL RBC (4.20-5.50) X10*6/uL Hgb (12.0-16.0) g/dl Hct (37.0-47.0) % MCV (80.0-98.0) fL MCH (27.0-33.0) pg MCHC (31.0-35.0) g/dl RDW (11.0-16.0) % Plt Count (160-400) X10*3/uL MPV (9.4-12.3) fL Immature Gran % (Auto) (0.0-0.4) % Neut % (Auto) (45-73) % Lymph % (Auto) (20-40) % [place] % (Auto) (2-11) % Eos % (Auto) (0-4) % Baso % (Auto) (0-2) % Lymph # (Auto) (1.2-4.9) X10*3/uL [place] # (Auto) (0.1-1.2) X10*3/uL Eos # (Auto) (0.0-0.4) X10*3/uL Baso # (Auto) (0.0-0.2) X10*3/uL Abs Immat Gran (auto) (0.00-0.03) X10*3/uL Absolute Neuts (auto) (2.0-8.3) x10*3/uL Absolute Nucleated RBC (0.0-0.012) X10*3/uL Nucleated RBC % (auto) (0.0-0.2) /100WBC PT (10.0-13.1) SEC INR (0.9-1.1) Sodium (135-145) mmol/L Potassium (3.3-5.1) mmol/L Chloride (96-108) mmol/L Carbon Dioxide (22-29) mmol/L Anion Gap (12-20) BUN (9-16) mg/dL Creatinine (0.5-1.4) mg/dL Estim Creat Clear Calc Estimated GFR Random Glucose (60-115) mg/dL Calcium (8.4-10.2) mg/dL Magnesium (1.6-2.6) mg/dL Total Bilirubin (0.0-1.0) mg/dL AST (5-31) U/L ALT (0-31) U/L Alkaline Phosphatase (39-117) U/L Troponin I High Sens < 3.5 (<3.5-17.0) ng/L Total Protein (6.5-8.0) g/dL Albumin (3.5-5.0) g/dL Lipase (8-78) U/L Beta HCG, Quant mIU/mL <STEFFANY Marquez - Last Filed: 12/16/22 20:36> Lab Results 12/16/22 12/16/22 12/16/22 Range/Units 21:10 21:10 21:11 WBC 9.9 (4.8-10.8) X10*3/uL RBC 5.11 (4.20-5.50) X10*6/uL Hgb 14.2 (12.0-16.0) g/dl Hct 41.8 (37.0-47.0) % MCV 81.8 (80.0-98.0) fL MCH 27.8 (27.0-33.0) pg MCHC 34.0 (31.0-35.0) g/dl RDW 13.1 (11.0-16.0) % Plt Count 349 (160-400) X10*3/uL MPV 9.2 L (9.4-12.3) fL Immature Gran % (Auto) 0.3 (0.0-0.4) % Neut % (Auto) 72.0 (45-73) % Lymph % (Auto) 23.1 (20-40) % [place] % (Auto) 4.0 (2-11) % Eos % (Auto) 0.1 (0-4) % Baso % (Auto) 0.5 (0-2) % Lymph # (Auto) 2.3 (1.2-4.9) X10*3/uL [place] # (Auto) 0.4 (0.1-1.2) X10*3/uL Eos # (Auto) 0.0 (0.0-0.4) X10*3/uL Baso # (Auto) 0.1 (0.0-0.2) X10*3/uL Abs Immat Gran (auto) 0.03 (0.00-0.03) X10*3/uL Absolute Neuts (auto) 7.1 (2.0-8.3) x10*3/uL Absolute Nucleated RBC 0.000 (0.0-0.012) X10*3/uL Nucleated RBC % (auto) 0.0 (0.0-0.2) /100WBC PT 11.9 (10.0-13.1) SEC INR 1.0 (0.9-1.1) Sodium 140 (135-145) mmol/L Potassium 3.9 (3.3-5.1) mmol/L Chloride 106 (96-108) mmol/L Carbon Dioxide 24 (22-29) mmol/L Anion Gap 14 (12-20) BUN 12 (9-16) mg/dL Creatinine 0.77 (0.5-1.4) mg/dL Estim Creat Clear Calc 134.2 Estimated GFR > 60 Random Glucose 103 (60-115) mg/dL Calcium 9.4 D (8.4-10.2) mg/dL Magnesium 1.8 (1.6-2.6) mg/dL Total Bilirubin 0.5 (0.0-1.0) mg/dL AST 39 H (5-31) U/L ALT 40 H (0-31) U/L Alkaline Phosphatase 106 (39-117) U/L Troponin I High Sens (<3.5-17.0) ng/L Total Protein 8.0 (6.5-8.0) g/dL Albumin 4.6 (3.5-5.0) g/dL Lipase 18 (8-78) U/L Beta HCG, Quant < 2 mIU/mL 12/16/22 Range/Units 21:11 WBC (4.8-10.8) X10*3/uL RBC (4.20-5.50) X10*6/uL Hgb (12.0-16.0) g/dl Hct (37.0-47.0) % MCV (80.0-98.0) fL MCH (27.0-33.0) pg MCHC (31.0-35.0) g/dl RDW (11.0-16.0) % Plt Count (160-400) X10*3/uL MPV (9.4-12.3) fL Immature Gran % (Auto) (0.0-0.4) % Neut % (Auto) (45-73) % Lymph % (Auto) (20-40) % [place] % (Auto) (2-11) % Eos % (Auto) (0-4) % Baso % (Auto) (0-2) % Lymph # (Auto) (1.2-4.9) X10*3/uL [place] # (Auto) (0.1-1.2) X10*3/uL Eos # (Auto) (0.0-0.4) X10*3/uL Baso # (Auto) (0.0-0.2) X10*3/uL Abs Immat Gran (auto) (0.00-0.03) X10*3/uL Absolute Neuts (auto) (2.0-8.3) x10*3/uL Absolute Nucleated RBC (0.0-0.012) X10*3/uL Nucleated RBC % (auto) (0.0-0.2) /100WBC PT (10.0-13.1) SEC INR (0.9-1.1) Sodium (135-145) mmol/L Potassium (3.3-5.1) mmol/L Chloride (96-108) mmol/L Carbon Dioxide (22-29) mmol/L Anion Gap (12-20) BUN (9-16) mg/dL Creatinine (0.5-1.4) mg/dL Estim Creat Clear Calc Estimated GFR Random Glucose (60-115) mg/dL Calcium (8.4-10.2) mg/dL Magnesium (1.6-2.6) mg/dL Total Bilirubin (0.0-1.0) mg/dL AST (5-31) U/L ALT (0-31) U/L Alkaline Phosphatase (39-117) U/L Troponin I High Sens < 3.5 (<3.5-17.0) ng/L Total Protein (6.5-8.0) g/dL Albumin (3.5-5.0) g/dL Lipase (8-78) U/L Beta HCG, Quant mIU/mL <Regina Bridges MD - Last Filed: 12/17/22 01:59> Discharge Plan Discharge Clinical Impression: Diffuse pain <STEFFANY Marquez - Last Filed: 12/16/22 20:36> Patient Disposition: Home, Self-Care <STEFFANY Marquez - Last Filed: 12/16/22 20:36> Instructions: Fatigue (ED) <STEFFANY Marquez - Last Filed: 12/16/22 20:36> Additional Instructions: Please follow-up with your primary care physician tomorrow. If you have any worsening or new symptoms, please return to the emergency room or call 911 <STEFFANY Marquez - Last Filed: 12/16/22 20:36> Prescriptions: New ketorolac 10 mg tablet 10 mg PO BID PRN (Reason: pain) 5 Days Qty: 7 0RF No Action cholecalciferol (vitamin D3) 1,250 mcg (50,000 unit) capsule 1,250 mcg PO QWEEK Qty: 13 0RF pantoprazole 40 mg tablet,delayed release (DR/EC) 40 mg PO DAILY@0630 Qty: 30 2RF sertraline 50 mg tablet 50 mg PO DAILY mirtazapine 15 mg tablet 15 mg PO BEDTIME prednisone 20 mg tablet 40 mg PO DAILY Qty: 10 0RF tramadol 50 mg tablet 50 mg PO Q6H PRN (Reason: pain) Qty: 20 0RF nitrofurantoin monohyd/m-cryst [Macrobid] 100 mg capsule 100 mg PO BID 7 Days Qty: 14 0RF Rx Instructions: must administer with a meal/food clonidine HCl 0.1 mg tablet 0.1 mg PO BEDTIME sucralfate 1 gram tablet 1 g PO BEDTIME Qty: 30 1RF polyethylene glycol 3350 [Miralax] 17 gram/dose powder 17 g PO DAILY Qty: 510 2RF amlodipine 5 mg tablet 5 mg PO DAILY 90 Days Qty: 90 1RF Protocol: Hold for SBP< HOLD for SBP < : 90 <STEFFANY Marquez - Last Filed: 12/16/22 20:36>
[2022-12-16 21:14] LABS: MANUAL DIFF FLAG NO
[2022-12-16 21:16] LABS: Basophils Absolute Auto 0.1 X10*3/uL (0.0-0.2); Basophils Percent Auto 0.5 % (0-2); Eosinophils Percent Auto 0.1 % (0-4); Hematocrit 41.8 % (37.0-47.0); Hemoglobin 14.2 g/dl (12.0-16.0); Imm Gran Abs Auto 0.03 X10*3/uL (0.00-0.03); Imm Gran Pct Auto 0.3 % (0.0-0.4); Lymphocytes Absolute Auto 2.3 X10*3/uL (1.2-4.9); Lymphocytes Percent Auto 23.1 % (20-40); Mean Corpuscular Hemoglobin 27.8 pg (27.0-33.0); Mean Corpuscular Volume 81.8 fL (80.0-98.0); Mean Platelet Volume 9.2 fL (9.4-12.3); Monocytes Absolute Auto 0.4 X10*3/uL (0.1-1.2); Neutrophils Absolute Auto 7.1 x10*3/uL (2.0-8.3); Platelet Count 349 X10*3/uL (160-400); Red Blood Count 5.11 X10*6/uL (4.20-5.50); Red Cell Distribution Width 13.1 % (11.0-16.0); White Blood Count 9.9 X10*3/uL (4.8-10.8)
[2022-12-16 21:22] LABS: Prothrombin Time 11.9 SEC (10.0-13.1)
[2022-12-16 21:36] LABS: Alanine Aminotransferase 40 U/L (0-31); Albumin Level 4.6 g/dL (3.5-5.0); Alkaline Phosphatase 106 U/L (39-117); Anion Gap 14 (12-20); Aspartate Amino Transferase 39 U/L (5-31); Bilirubin Total 0.5 mg/dL (0.0-1.0); Blood Urea Nitrogen 12 mg/dL (9-16); Calcium 9.4 mg/dL (8.4-10.2); Carbon Dioxide 24 mmol/L (22-29); Chloride 106 mmol/L (96-108); Creatinine Clr Calc Pharmacy 134.2; Estimated Glomerular Filt Rate > 60; Glucose Random 103 mg/dL (60-115); HCG Quantitative < 2 mIU/mL; Lipase 18 U/L (8-78); Magnesium 1.8 mg/dL (1.6-2.6); Potassium 3.9 mmol/L (3.3-5.1); Sodium 140 mmol/L (135-145)
[2022-12-16 21:37] LABS: Troponin-I High Sensitivity < 3.5 ng/L (<3.5-17.0)
[2022-12-17 02:06] VITALS: BP 139/82; PULSE 80; RESP 14; TEMP 36.5; O2SAT 95
[2022-12-17] MEDS: Ketorolac Tromethamine 60 MG/2 ML VIAL IM (02:07)
--- NOTE | 2022-12-17 02:16 | PC.NURSE ---
Discharge instructions reviewed with pt. Pt verbalizes understanding.
== END 2022-12-17 02:17 | disposition home or self-care (01) ==
PROVIDERS: Physician Assistant Medical; Emergency Provider Emergency Medicine; PCP Internal Medicine
DX: R07.89 Other chest pain (principal); M79.10 Myalgia, unspecified site; Z79.899 Other long term (current) drug therapy
CPT/HCPCS: 36415; 71046; 80053; 83690; 83735; 84484; 84702; 85025; 85610; 93005; 96372; 99284; J1885

== ENCOUNTER → 2022-12-31 12:45 | Outpatient (BNVA) | payer OTHER, SELFPAY | PROVIDERS: PCP Internal Medicine; Referring Provider Internal Medicine; Visit Provider Internal Medicine Cardiovascular Disease | DX: I10 Essential (primary) hypertension (principal) | CPT/HCPCS: 99212 ==

== ENCOUNTER 2023-01-14 10:59 | Outpatient (REF) | payer OTHER, SELFPAY ==
--- NOTE | ~2023-01-14 | XR_ITS ---
EXAMINATION: XR BILATERAL KNEES CLINICAL INFORMATION: Reason for Exam M06.9 - Rheumatoid arthritis, unspecified COMPARISON: Knee radiographs 06/14/2022 TECHNIQUE: 3 views of the bilateral knees FINDINGS: RIGHT KNEE: No acute fracture or dislocation. Mild degenerative changes of the knee with small lateral and patellofemoral compartment osteophytes, slightly progressed from prior. No cortical erosion. No joint effusion. Soft tissues are unremarkable. LEFT KNEE: No acute fracture or dislocation. Joint spaces are maintained. No cortical erosion. No joint effusion. Soft tissues are unremarkable. XR/XR knee RT 3V IMPRESSION: * No acute osseous abnormality. * Mild degenerative changes of the right knee. No significant degenerative change in the left knee.
--- NOTE | ~2023-01-14 | XR_ITS ---
EXAMINATION: XR hand wrist RT, XR hand wrist LT CLINICAL INFORMATION: Rheumatoid arthritis COMPARISON: None TECHNIQUE: 4 views of the bilateral hands/wrists. FINDINGS: RIGHT: No fracture or dislocation. Mild degenerative changes of the second through fourth distal interphalangeal joints with degenerative spurring. No cortical erosion. Soft tissues are unremarkable. LEFT: No fracture or dislocation. Joint spaces are maintained. No cortical erosion. Soft tissues are unremarkable. XR/XR hand wrist LT IMPRESSION: No acute osseous abnormality. Mild degenerative changes of the right distal interphalangeal joints.
--- NOTE | ~2023-01-14 | XR_ITS ---
EXAMINATION: XR hand wrist RT, XR hand wrist LT CLINICAL INFORMATION: Rheumatoid arthritis COMPARISON: None TECHNIQUE: 4 views of the bilateral hands/wrists. FINDINGS: RIGHT: No fracture or dislocation. Mild degenerative changes of the second through fourth distal interphalangeal joints with degenerative spurring. No cortical erosion. Soft tissues are unremarkable. LEFT: No fracture or dislocation. Joint spaces are maintained. No cortical erosion. Soft tissues are unremarkable. XR/XR hand wrist RT IMPRESSION: No acute osseous abnormality. Mild degenerative changes of the right distal interphalangeal joints.
--- NOTE | ~2023-01-14 | XR_ITS ---
EXAMINATION: XR BILATERAL KNEES CLINICAL INFORMATION: Reason for Exam M06.9 - Rheumatoid arthritis, unspecified COMPARISON: Knee radiographs 06/14/2022 TECHNIQUE: 3 views of the bilateral knees FINDINGS: RIGHT KNEE: No acute fracture or dislocation. Mild degenerative changes of the knee with small lateral and patellofemoral compartment osteophytes, slightly progressed from prior. No cortical erosion. No joint effusion. Soft tissues are unremarkable. LEFT KNEE: No acute fracture or dislocation. Joint spaces are maintained. No cortical erosion. No joint effusion. Soft tissues are unremarkable. XR/XR knee LT 3V IMPRESSION: * No acute osseous abnormality. * Mild degenerative changes of the right knee. No significant degenerative change in the left knee.
[2023-01-14 12:26] LABS: MANUAL DIFF FLAG NO
[2023-01-14 13:03] LABS: Appearance Urine Cloudy; Color Urine Yellow; Glucose Urine UA Negative (Negative); Leukocyte Esterase Urine Negative (Negative); Nitrite Urine Negative (Negative); Specific Gravity - Urine 1.025 (1.005-1.025); Urine Blood Negative (Negative); Urine Ketones Negative (Negative); Urine Protein Negative (Neg-Trace)
[2023-01-14 13:05] LABS: Bacteria Urine None Seen (None Seen); Hyaline Casts Urine 0-2 /LPF (0-2); RBC Urine 0-2 /HPF (0-2); WBC Urine 0-5 /HPF (0-5)
[2023-01-14 13:15] LABS: Basophils Absolute Auto 0.1 X10*3/uL (0.0-0.2); Basophils Percent Auto 0.5 % (0-2); Eosinophils Percent Auto 0.4 % (0-4); Hematocrit 42.3 % (37.0-47.0); Hemoglobin 14.6 g/dl (12.0-16.0); Imm Gran Abs Auto 0.04 X10*3/uL (0.00-0.03); Imm Gran Pct Auto 0.4 % (0.0-0.4); Lymphocytes Absolute Auto 2.5 X10*3/uL (1.2-4.9); Lymphocytes Percent Auto 26.9 % (20-40); Mean Corpuscular HGB Conc 34.5 g/dl (31.0-35.0); Mean Corpuscular Hemoglobin 28.8 pg (27.0-33.0); Mean Corpuscular Volume 83.4 fL (80.0-98.0); Mean Platelet Volume 9.9 fL (9.4-12.3); Monocytes Absolute Auto 0.5 X10*3/uL (0.1-1.2); Monocytes Percent Auto 4.9 % (2-11); Neutrophils Absolute Auto 6.2 x10*3/uL (2.0-8.3); Neutrophils Percent Auto 66.9 % (45-73); Platelet Count 342 X10*3/uL (160-400); Red Blood Count 5.07 X10*6/uL (4.20-5.50); Red Cell Distribution Width 13.2 % (11.0-16.0); White Blood Count 9.3 X10*3/uL (4.8-10.8)
[2023-01-14 13:42] LABS: Alanine Aminotransferase 44 U/L (0-31); Albumin Level 4.4 g/dL (3.5-5.0); Alkaline Phosphatase 103 U/L (39-117); Anion Gap 17 (12-20); Aspartate Amino Transferase 38 U/L (5-31); Bilirubin Total 0.7 mg/dL (0.0-1.0); Blood Urea Nitrogen 14 mg/dL (9-16); C Reactive Protein 0.67 mg/dL (< or = 0.50); Calcium 9.5 mg/dL (8.4-10.2); Carbon Dioxide 22 mmol/L (22-29); Chloride 106 mmol/L (96-108); Estimated Glomerular Filt Rate > 60; Glucose Random 112 mg/dL (60-115); Potassium 3.8 mmol/L (3.3-5.1); Sodium 141 mmol/L (135-145); Total Protein 7.4 g/dL (6.5-8.0)
[2023-01-14 13:59] LABS: Protein/Creatinine Ratio, Ur 0.06 (<0.2); Total Protein Urine Random 12 mg/dL (<12)
[2023-01-14 14:26] LABS: Erythrocyte Sedimentation Rate 12 MM/HR (0-20)
[2023-01-15 04:56] LABS: HBS Num1 8.77 mIU/mL (0-7.99); HBc Num1 0.12 S/CO (0.00-0.79); HBsAGNum1 0.37 S/CO (0.00-0.99); Hepatitis A Antibody IgM 0.21 Index (0-0.79); Hepatitis B Core Antibody Nonreactive (Nonreactive); Hepatitis B Surface Antigen Negative (Negative); ~HepC Num1 0.15 S/CO (0.00-0.79); ~Hepatitis A Antibody IgM Nonreactive (Nonreactive); ~Hepatitis C Antibody Nonreactive (Nonreactive)
[2023-01-15 05:59] LABS: ~Hepatitis B Surface Antibody GRAYZONE (Nonreactive)
[2023-01-15 15:58] LABS: Complement C3 171 mg/dL (83-193)
[2023-01-16 18:18] LABS: Anti DNA DS Antibody <1 IU/mL; Antibody to SS-A Antigen <1.0 NEG AI (<1.0 NEG); Antibody to SS-B Antigen <1.0 NEG AI (<1.0 NEG); SM/Ribonucleoprotein Ab <1.0 NEG AI (<1.0 NEG); Smith Protein <1.0 NEG AI (<1.0 NEG)
[2023-01-17 01:28] LABS: TS Negative Control Passed; TS Panel A 2; TS Panel B 1; TS Positive Control Passed; TSpotTB Negative (Negative)
[2023-01-17 22:58] LABS: Prot Elec - Albumin 4.1 g/dL (3.8-4.8); Prot Elec - Total Protein 7.4 g/dL (6.1-8.1)
[2023-01-17 22:59] LABS: Prot Elec - Alpha1 0.3 g/dL (0.2-0.3); Prot Elec - Alpha2 0.8 g/dL (0.5-0.9); Prot Elec - Beta 1 0.6 g/dL (0.4-0.6); Prot Elec - Beta 2 0.4 g/dL (0.2-0.5); Prot Elec - Gamma 1.1 g/dL (0.8-1.7)
[2023-01-20 15:29] LABS: IgA 343 mg/dL (47-310); IgG 1164 mg/dL (600-1640); IgM 130 mg/dL (50-300)
[2023-01-21 14:08] LABS: PTT (LAC) Screen 31 sec (<=40)
[2023-01-21 15:18] LABS: Anti Nuclear Antibody Screen POSITIVE (NEGATIVE)
[2023-01-21 22:58] LABS: Beta-2 Glycoprotein IgA <2.0 U/mL (<20.0); Beta-2 Glycoprotein IgG <2.0 U/mL (<20.0); Beta-2 Glycoprotein IgM <2.0 U/mL (<20.0)
[2023-01-22 11:08] LABS: Cardiolipin IgG Ab <2.0 GPL-U/mL; Cardiolipin IgM Ab <2.0 MPL-U/mL
[2023-01-22 14:09] LABS: DNAds, Crithidia Antibody Negative (Negative)
[2023-01-29 16:49] LABS: Centromere Protein A Ab <11 SI (<11); Centromere Protein B Ab <11 SI (<11); Fibrillarin Ab <11 SI (<11); PM SCL 100 Ab <11 SI (<11); PM SCL 75 Ab <11 SI (<11); RNA Polymerase III RP11 Ab <11 SI (<11); RNA Polymerase III RP155 Ab <11 SI (<11); SCL-70 Extractable Nuclear Ab <11 SI (<11); Th-To Ab <11 SI (<11); U1 SNRNP RNP 70KD <11 SI (<11); U1 SNRNP RNP A <11 SI (<11); U1 SNRNP RNP C <11 SI (<11)
== END 2023-01-14 11:00 | disposition home or self-care (01) ==
LOC: HO.LAB 10:59
PROVIDERS: PCP Internal Medicine; Visit Provider Student in an Organized Health Care Education/Training Program
DX: Z11.59 Encounter for screening for other viral diseases (principal); Z11.7 Encounter for testing for latent tuberculosis infection; M32.9 Systemic lupus erythematosus, unspecified; M34.9 Systemic sclerosis, unspecified; D68.61 Antiphospholipid syndrome; M06.9 Rheumatoid arthritis, unspecified; R76.8 Other specified abnormal immunological findings in serum
CPT/HCPCS: 36415; 73110; 73130; 73562; 80053; 81001; 82784; 84156; 84165; 84182; 85025; 85597; 85613; 85652; 85730; 86038; 86039; 86140; 86146; 86147; 86160; 86225; 86235; 86255; 86334; 86481; 86704; 86706; 86709; 86803; 87340; 99202

== ENCOUNTER 2023-02-23 12:01 | Emergency (ER) | payer OTHER, SELFPAY ==
[2023-02-23 12:27] VITALS: BP 153/94; PULSE 92; RESP 18; TEMP 36.8; O2SAT 96; BMI 42.2
--- NOTE | 2023-02-23 12:31 | ED.GENADULT ---
HPI - General Adult General Chief complaint: Nausea/Vomiting/Diarrhea Stated complaint: Diarrhea/Yellow eyes Time Seen by Provider: 02/23/23 13:04 Source: patient Mode of arrival: ambulatory Limitations: no limitations History of Present Illness HPI narrative: Patient is a 27-year-old assigned female at with history of polyarthralgia, esophagitis, gastric ulcer, HTN, positive KERI, and vitamin D deficiency presenting to the emergency department with report of diarrhea the the past week as well as mid back pain and fever. Patient states initially the diarrhea had bright red blood, over the past 2 days diarrhea has been black. Reports 8-9 episodes of diarrhea daily. Reports subjective sweating/fevers which respond to Tylenol. Patient endorses nausea but denies vomiting. Denies any constipation. Patient denies using any Pepto-Bismol or any other [id number] medications for the diarrhea. Patient denies any abdominal pain or flank pain. Denies any dizziness, lightheadedness, chest pain, shortness of breath. Patient reports feeling as though the skin to the lateral aspects of both eyes appears yellow. Patient reports currently menstruating. MD complaint: diarrhea, fever, melena Onset (ago): day(s) Location: back Severity: moderate Quality: aching Pain Consistency: constant Associated symptoms: fever/chills Treatments prior to arrival: other (Tylenol) Related Data Home Medications Medication Instructions Recorded Confirmed sertraline 50 mg tablet 50 mg PO DAILY 08/24/22 01/14/23 mirtazapine 15 mg tablet 15 mg PO BEDTIME 10/22/22 01/14/23 methylphenidate HCl 18 mg 18 mg PO QAM 12/31/22 01/14/23 tablet,extended release 24 hr (Concerta) quetiapine 25 mg tablet 0 mg PO 01/14/23 01/14/23 sertraline 25 mg tablet 25 mg PO DAILY 01/14/23 01/14/23 Previous Rx's Medication Instructions Recorded cholecalciferol (vitamin D3) 1,250 1,250 mcg PO QWEEK #13 caps 09/11/22 mcg (50,000 unit) capsule tramadol 50 mg tablet 50 mg PO Q6H PRN pain #20 tabs 09/26/22 polyethylene glycol 3350 17 17 g PO DAILY #510 grams 11/26/22 gram/dose oral powder (Miralax) sucralfate 1 gram tablet 1 g PO BEDTIME #30 tabs 11/26/22 amlodipine 5 mg tablet 5 mg PO BID 90 days #180 tabs 12/31/22 diclofenac sodium 75 mg 75 mg PO BID pain 10 days #20 tabs 01/09/23 tablet,delayed release prednisone 20 mg tablet 20 mg PO DAILY 5 days #5 tabs 01/09/23 pantoprazole 40 mg tablet,delayed 40 mg PO DAILY@0630 #30 tabs 01/24/23 release lidocaine 5 % topical patch 1 patch topical DAILY #15 ea 02/23/23 Allergies Allergy/AdvReac Type Severity Reaction Status Date / Time shellfish derived Allergy Intermediate HIVES Verified 02/23/23 12:27 [SHELLFISH DERIVED] SWOLLEN FACE [place] And Derivatives Allergy Unknown hives Verified 02/23/23 12:27 [CITRUS] SEAFOOD Allergy Unknown ANGIOEDEMA Uncoded 01/14/23 11:17 Review of Systems Review of Systems: Yes all other systems are reviewed and are negative Constitutional: Constitutional: Denies anorexia, Denies body ache(s), Reports fever(s), Denies night sweats, Denies weakness, Denies weight gain and Denies weight loss Eyes: Eyes: Reports no additional eye complaints ENT: Reports system reviewed and no additional complaints, except as documented Cardiovascular: Cardiovascular: Reports no additional cardiovascular complaints Respiratory: Respiratory: Reports no additional respiratory complaints Gastrointestinal: Gastrointestinal: Reports hematochezia, Reports change in bowel habits, Denies fecal incontinence, Reports diarrhea (black), Reports nausea, Denies vomiting and Denies hematemesis Genitourinary: Genitourinary: Reports no additional female genitourinary complaints Musculoskeletal: Musculoskeletal: Reports back pain Integumentary/Breasts: Skin/Breast: Reports system reviewed and no additional complaints, except as docu Neurologic: Reports system reviewed and no additional complaints, except as documented and Denies weakness Psychiatric: Psychiatric: Reports no additional psychiatric complaints Endocrine: Endocrine: Reports no additional endocrine complaints Hematologic/Lymphatic: Hematologic/Lymphatic: Reports no additional hematologic/lymphatic complaints Allergic/Immunologic: Allergic/Immunologic: Reports no additional allergic/immunologic complaints [facility] Past Medical History Medical History (Updated 02/23/23 @ 16:06 by Codie Anthony NP) Blurred vision, bilateral Depression Esophagitis Essential hypertension Family history of systemic lupus erythematosus Gastric ulcer Heartburn Impaired fasting glucose Insomnia Lumbago with sciatica, left side Mid back pain on left side Obesity (BMI 30-39.9) Polyarthralgia Vitamin D deficiency Surgical History Hx of colonoscopy Hx of esophagogastroduodenoscopy Family History Family History Father History of renal dialysis Chronic kidney disease (CKD) Substance use disorder Mental health disorder Mother Substance use disorder Mental health disorder Brother Mental health disorder Brother Mental health disorder Brother Mental health disorder Brother Mental health disorder Sister Mental health disorder Sister Mental health disorder Paternal Aunt Crohn's disease Social History Social History Household Members: Family and Other Household Members Other:: Aunt Housing: Apartment Alcohol intake: never Patient Tobacco Use Status: Never used Tobacco Smoked in Last 30 Days: No e-Cigarette/Vaping Use: Currently Using Second Hand Smoke Exposure: Yes Use of substances other than those prescribed or required for medical reasons: No Substance Use Type: Marijuana Advance Directives: No Advance Directives Information Provided: Yes Patient : No service: No Current occupational status: employed Current occupation: [employer] Sexual orientation: Lesbian/Lomas/Homosexual Cognitive needs: No Hearing needs: No Vision needs: No Physical Exam ED Vital Signs: Vital Signs - 24 hr 02/23/23 12:27 02/23/23 14:05 02/23/23 16:02 Temperature 98.2 F Pulse Rate 92 69 76 Respiratory Rate 18 16 14 Blood Pressure 153/94 H 125/78 134/71 Pulse Oximetry 96 99 100 Oxygen Delivery Method Room Air Room Air Room Air BMI result Body Mass Index 42.2 Const General: cooperative, healthy appearing and no acute distress Orientation/consciousness: oriented to person, oriented to place, oriented to time and patient oriented x3 Limitations: no limitations HENMT Head: Yes normocephalic and Yes atraumatic Ears: external ears normal General nose exam: Normal external nose present Face and sinus: Yes face symmetric Mouth: oropharynx normal and moist mucous membranes Throat: Yes uvula midline Eyes Other: no yellow discoloration noted to sclera or periorbital skin General: appearance normal, both eyes and all related structures Conjunctivae: conjunctivae normal Pupils: Equal, round and reactive pupils present Neck Neck: Yes normal visual inspection, Yes full ROM and Yes supple Resp Effort & Inspection: normal respiratory effort and able to speak in complete sentences Auscultation: clear to auscultation bilaterally Cardio Rate: regular rate Rhythm: regular rhythm Heart sounds: S1 normal heart sound present and S2 normal heart sound present GI Other: Rectal exam chaperoned by Shahrzad Alfaro RN Palpation (GI): Soft to palpation and nontender Auscultation: Hyperactive bowel sounds present Rectal Exam - Female: visual inspection normal, normal sphincter tone, No mass and No tenderness General: Yes no CVA tenderness Back/Spine/Pelvis Back: no CVA tenderness Cervical Spine: normal cervical lordosis, cervical ROM normal and No Cervical spine tenderness Thoracic/Lumbar Spine: thoracic and lumbar spine normal to inspection, thoraco-lumbar ROM normal, paraspinal muscle tenderness bilaterally in the mid thoracic, No thoracic spinal tenderness and No lumbar spinal tenderness Skin General skin exam: elasticity normal, turgor normal and no jaundice Neuro General: oriented to person, oriented to place, oriented to time, patient oriented x3, moves all extremities, no focal motor deficits and CN's II-XI intact bilaterally Cranial nerves: Yes Equal, round and reactive pupils present Cognition (Neuro): normal cognition Gait exam (Neuro): Normal gait present Extrem General: Yes full ROM, Yes no pedal edema and Yes no calf tenderness Psych Mental Status: mental status grossly normal Affect: normal affect Thought process: Normal thought process present Course Course Course Narrative: RME: 27 yold transgender male presents to the ED for diarrhea 8 to 9 times for one weeks with fever and lower back pain with blood in the stool. Patient states feeling week and dehydratied. labs ordered. Vital sigsn stable. Eyes are not yellow on physical exam 13:50 Positive stool occult blood. CBC and CMP unremarkable, no evidence of dehydration, urine positive for blood over patient is currently menstruating. COVID and flu negative. VSS, feel patient is stable for discharge home with GI follow up, will contact patient with any positive results of GI panel. Ensure adequate fluid intake. Return precautions discussed at bedside. Medical Decision Making Lab Data 02/23/23 12:48 02/23/23 12:48 Labs: Lab Results 02/23/23 02/23/23 02/23/23 Range/Units 12:43 12:43 12:48 WBC 5.9 (4.8-10.8) X10*3/uL RBC 4.88 (4.20-5.50) X10*6/uL Hgb 13.8 (12.0-16.0) g/dl Hct 40.1 (37.0-47.0) % MCV 82.2 (80.0-98.0) fL MCH 28.3 (27.0-33.0) pg MCHC 34.4 (31.0-35.0) g/dl RDW 12.7 (11.0-16.0) % Plt Count 311 (160-400) X10*3/uL MPV 9.1 L (9.4-12.3) fL Immature Gran % (Auto) 0.3 (0.0-0.4) % Neut % (Auto) 60.5 (45-73) % Lymph % (Auto) 34.2 (20-40) % Sunflower % (Auto) 3.7 (2-11) % Eos % (Auto) 1.0 (0-4) % Baso % (Auto) 0.3 (0-2) % Lymph # (Auto) 2.0 (1.2-4.9) X10*3/uL Sunflower # (Auto) 0.2 (0.1-1.2) X10*3/uL Eos # (Auto) 0.1 (0.0-0.4) X10*3/uL Baso # (Auto) 0.0 (0.0-0.2) X10*3/uL Abs Immat Gran (auto) 0.02 (0.00-0.03) X10*3/uL Absolute Neuts (auto) 3.6 (2.0-8.3) x10*3/uL Absolute Nucleated RBC 0.000 (0.0-0.012) X10*3/uL Nucleated RBC % (auto) 0.0 (0.0-0.2) /100WBC Sodium (135-145) mmol/L Potassium (3.3-5.1) mmol/L Chloride (96-108) mmol/L Carbon Dioxide (22-29) mmol/L Anion Gap (12-20) BUN (9-16) mg/dL Creatinine (0.5-1.4) mg/dL Estim Creat Clear Calc Estimated GFR Random Glucose (60-115) mg/dL Calcium (8.4-10.2) mg/dL Total Bilirubin (0.0-1.0) mg/dL AST (5-31) U/L ALT (0-31) U/L Alkaline Phosphatase (39-117) U/L Total Protein (6.5-8.0) g/dL Albumin (3.5-5.0) g/dL Lipase (8-78) U/L Beta HCG, Quant mIU/mL Urine Color Urine Appearance Urine pH (5.0-9.0) Ur Specific [place] (1.005-1.025) Urine Protein (Neg-Trace) mg/dL Urine Glucose (UA) (Negative) mg/dL Urine Ketones (Negative) mg/dL Urine Blood (Negative) Urine Nitrite (Negative) Ur Leukocyte Esterase (Negative) Urine RBC (0-2) /HPF Urine WBC (0-5) /HPF Ur Squamous Epith Cells (0-2) /HPF Urine Bacteria (None Seen) Hyaline Casts (0-2) /LPF Stool Occult Blood (NEGATIVE) COVID-19 ([facility]ETH) Negative (Negative) COVID-19 Clin Com See Note Influenza Type A (ROSEMARY) Negative (Negative) Influenza Type B (ROSEMARY) Negative (Negative) Influenza A & B Note See Note 02/23/23 02/23/23 02/23/23 Range/Units 12:48 13:47 13:48 WBC (4.8-10.8) X10*3/uL RBC (4.20-5.50) X10*6/uL Hgb (12.0-16.0) g/dl Hct (37.0-47.0) % MCV (80.0-98.0) fL MCH (27.0-33.0) pg MCHC (31.0-35.0) g/dl RDW (11.0-16.0) % Plt Count (160-400) X10*3/uL MPV (9.4-12.3) fL Immature Gran % (Auto) (0.0-0.4) % Neut % (Auto) (45-73) % Lymph % (Auto) (20-40) % Sunflower % (Auto) (2-11) % Eos % (Auto) (0-4) % Baso % (Auto) (0-2) % Lymph # (Auto) (1.2-4.9) X10*3/uL Sunflower # (Auto) (0.1-1.2) X10*3/uL Eos # (Auto) (0.0-0.4) X10*3/uL Baso # (Auto) (0.0-0.2) X10*3/uL Abs Immat Gran (auto) (0.00-0.03) X10*3/uL Absolute Neuts (auto) (2.0-8.3) x10*3/uL Absolute Nucleated RBC (0.0-0.012) X10*3/uL Nucleated RBC % (auto) (0.0-0.2) /100WBC Sodium 139 (135-145) mmol/L Potassium 3.7 (3.3-5.1) mmol/L Chloride 110 H (96-108) mmol/L Carbon Dioxide 20 L (22-29) mmol/L Anion Gap 13 (12-20) BUN 9 (9-16) mg/dL Creatinine 0.84 (0.5-1.4) mg/dL Estim Creat Clear Calc 119.5 Estimated GFR > 60 Random Glucose 184 H (60-115) mg/dL Calcium 9.1 (8.4-10.2) mg/dL Total Bilirubin 0.3 (0.0-1.0) mg/dL AST 23 (5-31) U/L ALT 27 (0-31) U/L Alkaline Phosphatase 107 (39-117) U/L Total Protein 6.9 (6.5-8.0) g/dL Albumin 4.1 (3.5-5.0) g/dL Lipase 20 (8-78) U/L Beta HCG, Quant < 2 mIU/mL Urine Color Yellow Urine Appearance Cloudy Urine pH 7.0 (5.0-9.0) Ur Specific [place] 1.020 (1.005-1.025) Urine Protein Negative (Neg-Trace) mg/dL Urine Glucose (UA) Negative (Negative) mg/dL Urine Ketones Negative (Negative) mg/dL Urine Blood Large (3+) H (Negative) Urine Nitrite Negative (Negative) Ur Leukocyte Esterase Trace H (Negative) Urine RBC >20 H (0-2) /HPF Urine WBC 0-5 (0-5) /HPF Ur Squamous Epith Cells 0-2 (0-2) /HPF Urine Bacteria None Seen (None Seen) Hyaline Casts 0-2 (0-2) /LPF Stool Occult Blood POSITIVE (NEGATIVE) COVID-19 ([facility]) (Negative) COVID-19 Clin Com Influenza Type A (ROSEMARY) (Negative) Influenza Type B (ROSEMARY) (Negative) Influenza A & B Note Discharge Plan Discharge Clinical Impression: Diarrhea, Occult blood in stools Patient Disposition: Home, Self-Care Instructions: Acute Diarrhea (ED) Additional Instructions: You were evaluated in the emergency department today for diarrhea. Your stool was positive for blood. Your labs do not show evidence of an emergent condition requiring immediate intervention at this time. You should continue to use Tylenol as needed for fevers and avoid the use of ibuprofen or other NSAIDs. You are being prescribed topical lidocaine patches for your back pain which you may wear for up to 12 hours in a 24 hour period. Please follow-up with your cut out marker tomorrow morning. Ensure adequate fluid intake. Return to the emergency department if you experience worsening or uncontrolled pain, inability to tolerate fluids by mouth, difficulty breathing, fevers 100.4 or greater, recurrent vomiting, or any other concerning symptoms. Prescriptions: New lidocaine 5 % adhesive patch,medicated 1 patch topical DAILY Qty: 15 0RF Rx Instructions: leave on most painful area for up to 12 hrs No Action cholecalciferol (vitamin D3) 1,250 mcg (50,000 unit) capsule 1,250 mcg PO QWEEK Qty: 13 0RF pantoprazole 40 mg tablet,delayed release (DR/EC) 40 mg PO DAILY@0630 Qty: 30 2RF sertraline 50 mg tablet 50 mg PO DAILY mirtazapine 15 mg tablet 15 mg PO BEDTIME tramadol 50 mg tablet 50 mg PO Q6H PRN (Reason: pain) Qty: 20 0RF prednisone 20 mg tablet 20 mg PO DAILY 5 Days Qty: 5 0RF diclofenac sodium 75 mg tablet,delayed release (DR/EC) 75 mg PO BID 10 Days Qty: 20 0RF sucralfate 1 gram tablet 1 g PO BEDTIME Qty: 30 1RF polyethylene glycol 3350 [Miralax] 17 gram/dose powder 17 g PO DAILY Qty: 510 2RF sertraline 25 mg tablet 25 mg PO DAILY quetiapine 25 mg tablet 0 mg PO methylphenidate HCl [Concerta] 18 mg tablet extended release 24hr 18 mg PO QAM amlodipine 5 mg tablet 5 mg PO BID 90 Days Qty: 180 1RF Protocol: Hold for SBP< HOLD for SBP < : 90 Referrals: [facility] [place] [facility] [Provider Group]
[2023-02-23 12:53] LABS: MANUAL DIFF FLAG NO
[2023-02-23 12:56] LABS: Basophils Percent Auto 0.3 % (0-2); Eosinophils Absolute Auto 0.1 X10*3/uL (0.0-0.4); Hematocrit 40.1 % (37.0-47.0); Hemoglobin 13.8 g/dl (12.0-16.0); Imm Gran Abs Auto 0.02 X10*3/uL (0.00-0.03); Imm Gran Pct Auto 0.3 % (0.0-0.4); Lymphocytes Percent Auto 34.2 % (20-40); Mean Corpuscular HGB Conc 34.4 g/dl (31.0-35.0); Mean Corpuscular Hemoglobin 28.3 pg (27.0-33.0); Mean Corpuscular Volume 82.2 fL (80.0-98.0); Mean Platelet Volume 9.1 fL (9.4-12.3); Monocytes Absolute Auto 0.2 X10*3/uL (0.1-1.2); Monocytes Percent Auto 3.7 % (2-11); Neutrophils Absolute Auto 3.6 x10*3/uL (2.0-8.3); Neutrophils Percent Auto 60.5 % (45-73); Platelet Count 311 X10*3/uL (160-400); Red Blood Count 4.88 X10*6/uL (4.20-5.50); Red Cell Distribution Width 12.7 % (11.0-16.0); White Blood Count 5.9 X10*3/uL (4.8-10.8)
[2023-02-23 13:13] LABS: COVID-19 Test Negative (Negative)
[2023-02-23 13:19] LABS: Alanine Aminotransferase 27 U/L (0-31); Albumin Level 4.1 g/dL (3.5-5.0); Alkaline Phosphatase 107 U/L (39-117); Anion Gap 13 (12-20); Aspartate Amino Transferase 23 U/L (5-31); Bilirubin Total 0.3 mg/dL (0.0-1.0); Blood Urea Nitrogen 9 mg/dL (9-16); Calcium 9.1 mg/dL (8.4-10.2); Carbon Dioxide 20 mmol/L (22-29); Chloride 110 mmol/L (96-108); Creatinine Clr Calc Pharmacy 119.5; Estimated Glomerular Filt Rate > 60; Glucose Random 184 mg/dL (60-115); Lipase 20 U/L (8-78); Potassium 3.7 mmol/L (3.3-5.1); Sodium 139 mmol/L (135-145); Total Protein 6.9 g/dL (6.5-8.0)
[2023-02-23 13:25] LABS: HCG Quantitative < 2 mIU/mL
[2023-02-23 13:53] LABS: IDNOW Serial# 16C4AD1C; Influenza A Negative (Negative); Influenza B2 Negative (Negative)
[2023-02-23 13:57] LABS: Appearance Urine Cloudy; Color Urine Yellow; Glucose Urine UA Negative (Negative); Leukocyte Esterase Urine Trace (Negative); Nitrite Urine Negative (Negative); UMIC TRIGGER UACC YES; Urine Blood Large (3+) (Negative); Urine Ketones Negative (Negative); Urine Protein Negative (Neg-Trace)
[2023-02-23 14:01] LABS: OBS Int Ctl Valid YES; OBS1 POSITIVE (NEGATIVE)
[2023-02-23 14:02] LABS: Bacteria Urine None Seen (None Seen); Hyaline Casts Urine 0-2 /LPF (0-2); RBC Urine >20 /HPF (0-2); Squamous Epithelial Cell Urine 0-2 /HPF (0-2); WBC Urine 0-5 /HPF (0-5)
[2023-02-23 14:05] VITALS: BP 125/78; PULSE 69; RESP 16; O2SAT 99
[2023-02-23 16:02] VITALS: BP 134/71; PULSE 76; RESP 14; O2SAT 100
[2023-02-24 07:25] LABS: Adenovirus F 40/41 Not Detected (Not Detect.); Astrovirus Not Detected (Not Detect.); Campylobacter Not Detected (Not Detect.); Cryptosporidium Not Detected (Not Detect.); Cyclospora cayetanensis Not Detected (Not Detect.); E. coli EAEC Not Detected (Not Detect.); E. coli EPEC Not Detected (Not Detect.); E. coli ETEC Not Detected (Not Detect.); E. coli STEC Not Detected (Not Detect.); Entamoeba histolytica Not Detected (Not Detect.); Giardia lamblia Not Detected (Not Detect.); Norovirus GI/GII Not Detected (Not Detect.); Plesiomonas shigelloides Not Detected (Not Detect.); Rotavirus A Not Detected (Not Detect.); Salmonella Not Detected (Not Detect.); Sapovirus Not Detected (Not Detect.); Shigella sp./EIEC Not Detected (Not Detect.); Vibrio Not Detected (Not Detect.); Vibrio Cholerae Not Detected (Not Detect.); Yersinia enterocolitica Not Detected (Not Detect.)
== END 2023-02-23 16:16 | disposition home or self-care (01) ==
PROVIDERS: Physician Assistant; Registered Nurse Emergency; Emergency Provider Emergency Medicine Emergency Medical Services; PCP Internal Medicine
DX: K92.1 Melena (principal); R19.7 Diarrhea, unspecified; Z20.822 Contact with and (suspected) exposure to COVID-19; Z20.828 Contact with and (suspected) exposure to other viral communicable diseases; Z79.899 Other long term (current) drug therapy
CPT/HCPCS: 80053; 81001; 81003; 82272; 83690; 84702; 85025; 87502; 87507; 87635; 99284

== ENCOUNTER → 2023-03-19 08:47 | Outpatient (BNVA) | payer OTHER, SELFPAY | PROVIDERS: PCP Internal Medicine; Visit Provider Nurse Practitioner Family | DX: R10.32 Left lower quadrant pain (principal); K25.9 Gastric ulcer, unspecified as acute or chronic, without hemorrhage or perforation; K20.90 Esophagitis, unspecified without bleeding; K52.9 Noninfective gastroenteritis and colitis, unspecified; R12 Heartburn; D12.6 Benign neoplasm of colon, unspecified | CPT/HCPCS: 99212 ==

== ENCOUNTER → 2023-04-01 13:13 | Outpatient (BNVA) | payer OTHER, SELFPAY | PROVIDERS: PCP Internal Medicine; Referring Provider Internal Medicine; Visit Provider Nurse Practitioner Family | DX: Z01.810 Encounter for preprocedural cardiovascular examination (principal); I10 Essential (primary) hypertension; R94.31 Abnormal electrocardiogram [ECG] [EKG]; E66.01 Morbid (severe) obesity due to excess calories; Z68.41 Body mass index [BMI] 40.0-44.9, adult | CPT/HCPCS: 93005; 99212 ==

== ENCOUNTER 2023-04-10 13:06 | Emergency (ER) | payer OTHER, SELFPAY ==
[2023-04-10 13:31] VITALS: BP 155/92; PULSE 92; RESP 18; TEMP 36.8; O2SAT 98; BMI 42.7
--- NOTE | 2023-04-10 13:32 | ED.GENADULT ---
HPI - General Adult General Chief complaint: Headache Stated complaint: pain on back of head, dizzy, headaches Time Seen by Provider: 04/10/23 14:03 History of Present Illness HPI narrative: patient complains of several days of pain in the back of her scalp,, mild headache in that area, as well as dizziness described as a spinning sensation, which is waxing and waning and makes her to walk more slowly, but she is easily able to ambulate safely, headache was gradual in onset there is no trauma no fever, she has had no confusion no facial drooping no difficulty forming words, no weakness on either side of the body no loss of sensation She has not had a similar headache before, headache was gradual in onset and waxing and waning Related Data Home Medications Medication Instructions Recorded Confirmed mirtazapine 15 mg tablet 15 mg PO BEDTIME 10/22/22 04/01/23 methylphenidate HCl 18 mg 18 mg PO QAM 12/31/22 04/01/23 tablet,extended release 24 hr (Concerta) sertraline 100 mg tablet 100 mg PO DAILY 03/19/23 04/01/23 sennosides 8.6 mg tablet (senna) 17.2 mg PO BEDTIME constipation 04/01/23 04/01/23 Previous Rx's Medication Instructions Recorded amlodipine 5 mg tablet 5 mg PO BID 90 days #180 tabs 12/31/22 pantoprazole 40 mg tablet,delayed 40 mg PO DAILY@0630 #30 tabs 01/24/23 release lidocaine 5 % topical patch 1 patch topical DAILY #15 ea 02/23/23 bisacodyl 5 mg tablet,delayed 10 mg PO ONCE 1 day #2 tabs 03/19/23 release (Dulcolax (bisacodyl)) methylcellulose (laxative) 500 mg 500 mg PO DAILY #90 tabs 03/19/23 tablet (Citrucel) polyethylene glycol 3350 17 238 g PO ONCE #238 grams 03/19/23 gram/dose oral powder (Miralax) sucralfate 1 gram tablet 1 g PO BID #60 tabs 03/19/23 diazepam 5 mg tablet (Valium) 5 mg PO TID PRN dizziness #10 tabs 04/10/23 ibuprofen 600 mg tablet 600 mg PO Q6H pain #20 tabs 04/10/23 meclizine 25 mg tablet 25 mg PO BID PRN dizziness #14 tabs 04/10/23 ondansetron 4 mg disintegrating 4 mg PO Q6H PRN nausea and 04/10/23 tablet vomiting #10 tabs Allergies Allergy/AdvReac Type Severity Reaction Status Date / Time shellfish derived Allergy Intermediate HIVES Verified 04/10/23 13:31 [SHELLFISH DERIVED] SWOLLEN FACE [place] And Derivatives Allergy Unknown hives Verified 04/10/23 13:31 [CITRUS] SEAFOOD Allergy Unknown ANGIOEDEMA Uncoded 04/10/23 11:45 PMFSH Past Medical History Source: nursing notes reviewed Medical History Blurred vision, bilateral Depression Esophagitis Essential hypertension Family history of systemic lupus erythematosus Gastric ulcer Heartburn Impaired fasting glucose Insomnia Lumbago with sciatica, left side Mid back pain on left side Obesity (BMI 30-39.9) Polyarthralgia Sessile serrated polyp of colon Vitamin D deficiency Surgical History Hx of colonoscopy Hx of esophagogastroduodenoscopy Family History Family History Father History of renal dialysis Chronic kidney disease (CKD) Substance use disorder Mental health disorder Mother Substance use disorder Mental health disorder Brother Mental health disorder Brother Mental health disorder Brother Mental health disorder Brother Mental health disorder Sister Mental health disorder Sister Mental health disorder Paternal Aunt Crohn's disease Social History Social History Household Members: Family and Other Household Members Other:: Aunt Housing: Apartment Alcohol intake: never Patient Tobacco Use Status: Never used Tobacco e-Cigarette/Vaping Use: Currently Using Second Hand Smoke Exposure: Yes Advance Directives: Yes Advance Directives on File: Yes Advance Directives Date on File: 08/26/22 service: No Current occupational status: employed 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 [employer] Sexual orientation: Lesbian/Lomas/Homosexual Cognitive needs: No Hearing needs: No Vision needs: No Physical Exam ED Vital Signs: Vital Signs - 24 hr 04/10/23 13:31 Temperature 98.3 F Pulse Rate 92 Respiratory Rate 18 Blood Pressure 155/92 H Pulse Oximetry 98 Oxygen Delivery Method Room Air BMI result Body Mass Index 42.7 general appearance no distress The scalp is normal with no lesions or rashes, there was mild tenderness in the posterior scalp but no skin lesions or swelling The ears the canals are normal, tympanic membrane normal no redness, there were both intact There is no redness in the mastoid area Eyes pupils equal round reactive to light, extraocular motions are intact, no nystagmus was elicited Sinuses nontender The pharynx is clear no redness swelling or exudate Membranes are moist Neck is supple no meningismus Chest clear to auscultation bilateral Heart no murmur Abdomen soft nontender Extremities full range of motion x4 Neuro the gait was mildly antalgic, she can easily walk a straight line but had a mildly wide-based gait, she walk safely up and down the hughes in the department Interaction conversation expression and comprehension were all normal Cranial nerves 2-12 intact as tested , no facial asymmetry Cerebellar exam with rapid alternating movements as well as [id number] was normal Motor is 5/5 x4, sensation is intact and symmetrical Course Course Course Narrative: This is an RME: Additional HPI, ROS, PE not included below will be deferred to primary provider. This is a 27-year-old assigned female at , with a past medical history of polyarthralgia, esophagitis, gastric ulcer, HTN, positive KERI, and vitamin D deficiencypresenting to the emergency department with complaints of posterior headache and dizziness x 1 week. No hx of migraines. Went to walk in clinic where they told her to come to the ER for some scans . Has been taking tylenol without any relief. +Photophobia x 2 years. Patient with complaint of mild headache for 1 week gradual onset as well as dizziness described as a room spinning sensation waxing and waning over the week with occasional mild nausea but no vomiting Never had confusion or muscle weakness , or difficulty forming words, or asymmetric face CT of the head was read as normal CBC was normal including LFTs and renal function normal as was glucose A tick panel including Lyme was sent Patient was treated with meclizine which she said was not helpful and continued to feel mild dizziness but was able to ambulate easily, but still with a mild feeling of dizziness and a slightly wide gait She was given Valium and Toradol with some mild relief and was discharged with a diagnosis peripheral vertigo and plan is to follow up with primary doctor if symptoms continue It is also possible this migraine variant, but stroke / bleed/ mass very unlikely Medications Administered Discontinued Medications Generic Name Dose Route Start Last Admin Trade Name Yanira PRN Reason Stop Dose Admin Diazepam 5 mg 04/10/23 17:36 04/10/23 17:46 Diazepam 2 Mg Tablet PO 04/10/23 17:37 5 mg ONCE ONE Administration Ketorolac Tromethamine 30 mg 04/10/23 17:37 04/10/23 17:46 Ketorolac Tromethamine 30 Mg/Ml Vial IM 04/10/23 17:38 30 mg ONCE ONE Administration Meclizine HCl 50 mg 04/10/23 14:55 04/10/23 15:27 Meclizine Hcl 25 Mg Tablet PO 04/10/23 14:56 50 mg ONCE ONE Administration Medical Decision Making Lab Data [facility] Lab Attestation statement: I reviewed the patient's lab results. 04/10/23 15:07 04/10/23 15:07 Labs: Lab Results 04/10/23 04/10/23 Range/Units 15:07 15:07 WBC 8.7 (4.8-10.8) X10*3/uL RBC 5.15 (4.20-5.50) X10*6/uL Hgb 14.0 (12.0-16.0) g/dl Hct 42.4 (37.0-47.0) % MCV 82.3 (80.0-98.0) fL MCH 27.2 (27.0-33.0) pg MCHC 33.0 (31.0-35.0) g/dl RDW 12.7 (11.0-16.0) % Plt Count 314 (160-400) X10*3/uL MPV 9.3 L (9.4-12.3) fL Immature Gran % (Auto) 0.3 (0.0-0.4) % Neut % (Auto) 70.6 (45-73) % Lymph % (Auto) 24.1 (20-40) % [place] % (Auto) 4.3 (2-11) % Eos % (Auto) 0.1 (0-4) % Baso % (Auto) 0.6 (0-2) % Lymph # (Auto) 2.1 (1.2-4.9) X10*3/uL [place] # (Auto) 0.4 (0.1-1.2) X10*3/uL Eos # (Auto) 0.0 (0.0-0.4) X10*3/uL Baso # (Auto) 0.1 (0.0-0.2) X10*3/uL Abs Immat Gran (auto) 0.03 (0.00-0.03) X10*3/uL Absolute Neuts (auto) 6.2 (2.0-8.3) x10*3/uL Absolute Nucleated RBC 0.000 (0.0-0.012) X10*3/uL Nucleated RBC % (auto) 0.0 (0.0-0.2) /100WBC Sodium 138 (135-145) mmol/L Potassium 4.7 D (3.3-5.1) mmol/L Chloride 105 (96-108) mmol/L Carbon Dioxide 24 (22-29) mmol/L Anion Gap 14 (12-20) BUN 13 (9-16) mg/dL Creatinine 0.78 (0.5-1.4) mg/dL Estim Creat Clear Calc 129.6 Estimated GFR > 60 Random Glucose 97 (60-115) mg/dL Calcium 10.1 D (8.4-10.2) mg/dL Total Bilirubin 0.5 (0.0-1.0) mg/dL Direct Bilirubin 0.2 (0.0-0.5) mg/dL AST 25 (5-31) U/L ALT 23 (0-31) U/L Alkaline Phosphatase 99 (39-117) U/L Total Protein 7.9 (6.5-8.0) g/dL Albumin 4.2 (3.5-5.0) g/dL Discharge Plan Discharge Clinical Impression: Peripheral vertigo, Headache Patient Disposition: Home, Self-Care Additional Instructions: the head CT did not show any dangerous or worry a some findings, no bleed no mass Your physical exam did not show any signs of stroke Lab workup today did not show any acute pathology, but Lyme test is pending We are discharging you with some standard treatments that helps some patients with vertigo, but they do not help all patient's so very important to follow with your doctor and if needed he will refer you to a specialist There is sometimes manipulations of the head that can fix peripheral vertigo Return to the ER any time for worsening headache, worsening dizziness, confusion, difficulty walking, any worse condition or any concerns Prescriptions: New diazepam [Valium] 5 mg tablet 5 mg PO TID PRN (Reason: dizziness) Qty: 10 0RF meclizine 25 mg tablet 25 mg PO BID PRN (Reason: dizziness) Qty: 14 0RF ibuprofen 600 mg tablet 600 mg PO Q6H Qty: 20 0RF ondansetron 4 mg tablet,disintegrating 4 mg PO Q6H PRN (Reason: nausea and vomiting) Qty: 10 0RF No Action pantoprazole 40 mg tablet,delayed release (DR/EC) 40 mg PO DAILY@0630 Qty: 30 2RF mirtazapine 15 mg tablet 15 mg PO BEDTIME lidocaine 5 % adhesive patch,medicated 1 patch topical DAILY Qty: 15 0RF Rx Instructions: leave on most painful area for up to 12 hrs sertraline 100 mg tablet 100 mg PO DAILY methylphenidate HCl [Concerta] 18 mg tablet extended release 24hr 18 mg PO QAM amlodipine 5 mg tablet 5 mg PO BID 90 Days Qty: 180 1RF Protocol: Hold for SBP< HOLD for SBP < : 90 sennosides [senna] 8.6 mg tablet 17.2 mg PO BEDTIME sucralfate 1 gram tablet 1 g PO BID Qty: 60 1RF bisacodyl [Dulcolax (bisacodyl)] 5 mg tablet,delayed release (DR/EC) 10 mg PO ONCE 1 Days Qty: 2 0RF Rx Instructions: take 2 tabs at noon the day before your colonoscopy polyethylene glycol 3350 [Miralax] 17 gram/dose powder 238 g PO ONCE Qty: 238 0RF Rx Instructions: As directed by gastroenterology department at [facility] Citrucel 500 mg tablet 500 mg PO DAILY Qty: 90 2RF Rx Instructions: take it with full glass of water Stand Alone Forms: Work/School Release Interventions: ED Discharge Assessment Last Done: 04/10/23 18:10 Discharge Date/Time: 04/10/23 18:11
[2023-04-10 15:31] LABS: Alanine Aminotransferase 23 U/L (0-31); Albumin Level 4.2 g/dL (3.5-5.0); Alkaline Phosphatase 99 U/L (39-117); Anion Gap 14 (12-20); Aspartate Amino Transferase 25 U/L (5-31); Bilirubin Direct 0.2 mg/dL (0.0-0.5); Bilirubin Total 0.5 mg/dL (0.0-1.0); Blood Urea Nitrogen 13 mg/dL (9-16); Calcium 10.1 mg/dL (8.4-10.2); Carbon Dioxide 24 mmol/L (22-29); Chloride 105 mmol/L (96-108); Creatinine Clr Calc Pharmacy 129.6; Estimated Glomerular Filt Rate > 60; Glucose Random 97 mg/dL (60-115); Potassium 4.7 mmol/L (3.3-5.1); Sodium 138 mmol/L (135-145); Total Protein 7.9 g/dL (6.5-8.0)
--- NOTE | 2023-04-10 16:10 | PC.NURSE ---
labs sent per order- pt awaiting CT of head lights dimmed for pt comfort
== END 2023-04-10 18:11 | disposition home or self-care (01) ==
PROVIDERS: Physician Assistant Medical; Emergency Provider Emergency Medicine Emergency Medical Services; PCP Internal Medicine
DX: H81.399 Other peripheral vertigo, unspecified ear (principal); R51.9 Headache, unspecified; I10 Essential (primary) hypertension; F64.0 Transsexualism; Z79.899 Other long term (current) drug therapy
CPT/HCPCS: 36415; 70450; 80048; 80076; 85025; 87798; 87801; 96372; 99283; 99284; J1885

== ENCOUNTER 2023-04-16 06:53 | Day surgery (SDC) | payer OTHER, SELFPAY ==
[2023-04-14 16:04] VITALS: BMI 42.5
[2023-04-16 07:30] VITALS: BP 139/89; PULSE 89; RESP 16; TEMP 36.2; O2SAT 98
[2023-04-16 07:30] LABS: UPreg QC Valid YES; Urine Pregnancy NEGATIVE (NEGATIVE)
[2023-04-16] MEDS: Lactated Ringers 1,000 ML 100 ML IVCONT (07:33)
--- NOTE | 2023-04-16 07:49 | HO.ANESPROP2 ---
[facility] Active Problems Active Problems: All Active Problems (Updated 04/11/23 @ 00:06 by Jacob Garcia) Preop cardiovascular exam (Acute) Abnormal EKG (Acute) Sessile serrated polyp of colon (Acute) Hospital discharge follow-up (Acute) Morbid obesity (Acute) Family history of systemic lupus erythematosus (Acute) Positive KERI (antinuclear antibody) (Acute) Polyarthralgia (Acute) Depression (Acute) Essential hypertension (Acute) Impaired fasting glucose (Acute) Vitamin D deficiency (Acute) Gastric ulcer (Acute) Esophagitis (Acute) Heartburn (Acute) Lumbago with sciatica, left side (Acute) Blurred vision, bilateral (Acute) Past Medical History Medical History Blurred vision, bilateral Depression Esophagitis Essential hypertension Family history of systemic lupus erythematosus Gastric ulcer Heartburn Impaired fasting glucose Insomnia Lumbago with sciatica, left side Mid back pain on left side Obesity (BMI 30-39.9) Polyarthralgia Sessile serrated polyp of colon Vitamin D deficiency Family History Family History Father History of renal dialysis Chronic kidney disease (CKD) Substance use disorder Mental health disorder Mother Substance use disorder Mental health disorder Brother Mental health disorder Brother Mental health disorder Brother Mental health disorder Brother Mental health disorder Sister Mental health disorder Sister Mental health disorder Paternal Aunt Crohn's disease Family history of problems with anesthesia: No Surgical History Surgical History Hx of colonoscopy Hx of esophagogastroduodenoscopy History of Problems with Anesthesia: No Social History Social History Household Members: Family and Other Household Members Other:: Aunt Housing: Apartment Are you a primary animal care giver to a significant other at home: No Do you presently have visiting nurse or other home services: No Alcohol intake: never Patient Tobacco Use Status: Never used Tobacco e-Cigarette/Vaping Use: Currently Using Second Hand Smoke Exposure: Yes Use of substances other than those prescribed or required for medical reasons: No Have you been hit, kicked, punched, or otherwise hurt by someone within the past year? 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[employer] Sexual orientation: Lesbian/Lomas/Homosexual Cognitive needs: No Hearing needs: No Vision needs: No Meds Allergies Allergy/AdvReac Type Severity Reaction Status Date / Time [place] And Derivatives Allergy Intermediate hives Verified 04/14/23 16:04 [CITRUS] shellfish derived Allergy Intermediate HIVES Verified 04/10/23 13:31 [SHELLFISH DERIVED] SWOLLEN FACE SEAFOOD Allergy Severe ANGIOEDEMA Uncoded 04/14/23 16:04 Active Medications: Current Medications Lactated Ringer's (Lr) 1,000 mls @ 100 mls/hr IVCONT .Q10H ALEX Last Admin: 04/16/23 07:33 Dose: 100 mls/hr Home Medications Medication Instructions Recorded Confirmed Last Taken Type mirtazapine 15 mg tablet 15 mg PO BEDTIME 10/22/22 04/14/23 Unknown History methylphenidate HCl 18 mg 18 mg PO QAM 12/31/22 04/14/23 Unknown History tablet,extended release 24 hr (Concerta) sertraline 100 mg tablet 100 mg PO DAILY 03/19/23 04/16/23 04/16/23 06:30 History sennosides 8.6 mg tablet (senna) 17.2 mg PO BEDTIME constipation 04/01/23 04/14/23 Unknown History Exam Exam Date and Time: April 16, 2023 0749 Height,Weight and Vital Signs: Height 5 ft 3 in Weight 108.862 kg Last Vital Signs Temp 97.2 F 04/16/23 07:30 Pulse 89 04/16/23 07:30 Resp 16 04/16/23 07:30 BP 139/89 04/16/23 07:30 Pulse Ox 98 04/16/23 07:30 O2 Del Method Room Air 04/16/23 07:30 Pertinent Lab Results Pertinent Lab Results: Laboratory Tests 04/16/23 07:10 Urine Test NEGATIVE Airway Mallampati Class: II TM Dist: >3cm Neck ROM: Full Assessment and Plan Assessment Anesthesia Assessment: Anesthesia Plan Discussed and Chart Reviewed Final Anesthetic Review Family History of Problems with Anesthesia: No History of Problems with Anesthesia: No NPO: Yes ASA Class: III Final Preanesthetic Review: No Changes in Pt Med Stat, Meds/Allgs Chart Reviewed, Consent Obtained/Reviewed and Anes Risks/Benef Reviewed Patient Risk: Intermediate Procedure Risk: Low Anesthetic Plan Anesthetic Plan: MAC: Disposition: Standard PACU
--- NOTE | 2023-04-16 08:37 | P.OP_ITS ---
Operative Note Operative Note Date of Service: 04/16/23 Narrative: Operative Information Procedure Description: EGD, Colonoscopy Indication: epigastric pain, hx of polyp Anesthesia: MAC FLEXIBLE TRANSORAL UPPER GASTROINTESTINAL ENDOSCOPY AND COLONOSCOPY PROCEDURE NOTE UPPER ENDOSCOPY Consent: Indications for the procedure and potential complications of bleeding, perforation, reaction to medications and missed diagnosis were discussed with the patient and informed consent was obtained. Instrument: Olympus GIF H 190 J mid size upper endoscope Monitoring: Vital signs and clinical assessment, continuous EKG monitoring, Pulse oximetry, Carbon Dioxide monitoring and blood pressure monitoring were done throughout the procedure. Procedure: The patient was placed in the left lateral decubitis position and pre-procedure medications were administered and a bite block was placed. The endoscope was inserted into the mouth and advanced under direct vision to the third part of duodenum. A careful inspection was made as the upper endoscope was withdrawn including a retroflexed examination of the proximal stomach; Findings and interventions are described below. Findings: Larynx:normal Esophagus: GE junction at 40 cm, diaphragm hiatus at 40 cm, bx taken from GEJ distal and proximal esophagus Stomach: erythematous mucosa antrum. Biopsies were obtained. Grade 2 flap valve on retroflexed examination of the cardia. Duodenum: Normal bulb and descending duodenum, bx taken Intervention: Biopsies as noted above COLONOSCOPY Instrument: Olympus variable stiffness pediatric scope 190L Colonoscopy Monitoring: Vital signs and clinical assessment, continuous EKG monitoring, Pulse oximetry, Carbon Dioxide monitoring and blood pressure monitoring were done throughout the procedure. Colon withdrawal time was 8 minutes. Procedure: The patient was placed in the left lateral decubitis position and pre-procedure medications were administered. After a digital rectal examination of the ano-rectum, the video colonoscope was inserted into the rectum and advanced through the colon to the cecum/TI. The colonoscope was slowly withdrawn in a retrograde panoramic fashion and the colon mucosa was carefully examined including a retroflexed view of the rectum. Findings and interventions are described below. Procedure Difficulty:easy Findings: There was minimal colonic peristalsis Terminal Ileum-normal, bx taken random bx taken Cecum:normal Ascending Colon: normal Transverse Colon -normal Descending Colon:normal Sigmoid Colon: normal Rectum: Retroflexion with small internal hemorrhoids, grade I Anorectum - normal Colon preparation: Trevett Bowel Preparation Scale Right colon; 2 Transverse colon: 2 Left colon; 2 (0 = Unprepared colon segment with mucosa not seen due to solid stool that cannot be cleared. 1 = Portion of mucosa of the colon segment seen, but other areas of the colon segment not well seen due to staining, residual stool and/or opaque liquid. 2 = Minor amount of residual staining, small fragments of stool and/or opaque liquid, but mucosa of colon segment seen well. 3 = Entire mucosa of colon segment seen well with no residual staining, small fragments of stool or opaque liquid) Impression and Post Procedure Diagnosis: Endoscopy Findings: gastritis Colonoscopy Findings: internal hemorrhoids possible colonic inertia Plan: Await Pathology results Repeat Colonoscopy in 5 years due to hx of sessile polyp or earlier if clinically indicated High fiber diet leaflet avoid straining at stool, epsom salts and sitz bath, anusol supps or cream consider GES and sitz marker test to check for Gi dysmotility Above findings were reviewed with the patient and relevant handouts were provided if indicated.
--- NOTE | 2023-04-16 08:37 | MHC.SHP ---
Pre-Procedural Eval Section A Date of Service: 04/16/23 Section B Chief Complaint: epigastric pain, Relevant Family History (Specify if Yes): No Relevant Social History: Other (specify) (vaping) Present Medications: see Short Stay Collaborative assessment Medical History: Significant History (Blurred vision, bilateral Depression Esophagitis Essential hypertension Family history of systemic lupus erythematosus Gastric ulcer Heartburn Impaired fasting glucose Insomnia Lumbago with sciatica, left side Mid back pain on left side Obesity (BMI 30-39.9) Polyarthralgia Sessile serrated polyp of ) History of Previous Operations: Relevant previous surgery/procedure and date(s) (egd,colonoscopy) Allergies: Allergies Allergy/AdvReac Type Severity Reaction Status Date / Time [place] And Derivatives Allergy Intermediate hives Verified 04/14/23 16:04 [CITRUS] shellfish derived Allergy Intermediate HIVES Verified 04/10/23 13:31 [SHELLFISH DERIVED] SWOLLEN FACE SEAFOOD Allergy Severe ANGIOEDEMA Uncoded 04/14/23 16:04 Review of Systems Sugical H&P ROS: Negative: Constitution, Cardiovascular, Respiratory, Neurological, Psychiatric, Hem-Onc, Allergic/Immunologic, Gastrointestinal, Genitourinary, Musculoskeletal, Integumentary, Endocrine and Eyes/Ears/Nose/Throat Exam Surgical H&P Exam: Normal: HEENT, Normal: Heart, Normal: Lungs, Normal: Extremities, Normal: Abdomen, Normal: Skin and Normal: Neurological Plan Diagnosis/Plan: Unchanged I have reviewed the history and physical and performed a pertinent physical examination on my patient. No changes have occurred unless specified. Time Spent With Patient Time: Total time managing care of this patient today ____ minutes.
[2023-04-16 09:07] VITALS: BP 96/50; PULSE 91; RESP 16; TEMP 36.2; O2SAT 95
[2023-04-16 09:22] VITALS: BP 114/75; PULSE 83; RESP 16; O2SAT 96
[2023-04-16 09:37] VITALS: BP 133/91; PULSE 67; RESP 16; O2SAT 97
[2023-04-16 09:51] VITALS: BP 133/91; PULSE 70; RESP 18; TEMP 36.2; O2SAT 97
== END 2023-04-16 10:25 | disposition home or self-care (01) ==
PROVIDERS: Anesthesiology; PCP Internal Medicine; Visit Provider Internal Medicine Gastroenterology
PROC: (CPT 45380; principal; 2023-04-16 08:30)
DX: K62.5 Hemorrhage of anus and rectum (principal); Z86.010 Personal history of colon polyps; K64.0 First degree hemorrhoids; K29.70 Gastritis, unspecified, without bleeding; Z87.11 Personal history of peptic ulcer disease; K44.9 Diaphragmatic hernia without obstruction or gangrene; K20.90 Esophagitis, unspecified without bleeding; R12 Heartburn; I10 Essential (primary) hypertension; R73.01 Impaired fasting glucose; E66.01 Morbid (severe) obesity due to excess calories; Z68.41 Body mass index [BMI] 40.0-44.9, adult; F64.0 Transsexualism; Z79.899 Other long term (current) drug therapy
CPT/HCPCS: 45380; 43239; 81025; 88305; 88342

== ENCOUNTER → 2023-04-16 06:53 | Outpatient (BNV) | payer OTHER, SELFPAY | PROVIDERS: PCP Internal Medicine; Visit Provider Internal Medicine Gastroenterology | DX: K29.70 Gastritis, unspecified, without bleeding (principal); Z86.010 Personal history of colon polyps; K64.8 Other hemorrhoids | CPT/HCPCS: 43239; 45380 ==

== ENCOUNTER 2023-04-29 07:58 | Outpatient (AMB) | payer OTHER, SELFPAY ==
--- NOTE | 2023-04-29 07:59 | A.OFFVIS_ITS ---
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 Required: No Accompanied by: Self / Same As Patient Allergies [place] And Derivatives [CITRUS] Allergy (Intermediate, Verified 04/29/23 08:13) hives shellfish derived [SHELLFISH DERIVED] Allergy (Intermediate, Verified 04/29/23 08:13) HIVES SWOLLEN FACE SEAFOOD Allergy (Severe, Uncoded 04/29/23 08:13) ANGIOEDEMA Medication List - Last Reconciled 04/29/23 by Rosalino Fields MD amlodipine 5 mg See Protocol PO BID 90 days bisacodyl (Dulcolax (bisacodyl)) 10 mg (2 x 5 mg) PO ONCE 1 day diazepam (Valium) 5 mg PO TID PRN ibuprofen 600 mg PO Q6H lidocaine 5% 1 patch topical DAILY meclizine 25 mg PO BID PRN methylcellulose (laxative) (Citrucel) 500 mg PO DAILY methylphenidate HCl ER (Concerta) 18 mg PO QAM mirtazapine 15 mg PO BEDTIME ondansetron 4 mg PO Q6H PRN pantoprazole 40 mg PO DAILY@0630 polyethylene glycol 3350 (Miralax) 238 grams PO ONCE sennosides (senna) 17.2 mg PO BEDTIME sertraline 100 mg PO DAILY sucralfate 1 g PO BID HPI HPI Comments History of Present Illness Details Patient returns for follow-up after completion of her blood work. Continues to have diffuse pain. Initial history: This is a 27-year-old patient who presents for evaluation of diffuse joint pain and positive KERI. Brother was diagnosed with SLE. Patient has been experiencing diffuse joint pain in her hands, knuckles, wrists, elbows, knees. She states that she has morning stiffness of her joints lasting 5-6 hours. Stated that she had bilateral knee swelling and went to urgent care a few days ago and was started on prednisone taper without improvement. Gets rashes on the face. Feels worse in the sun with worsening fatigue and rashes on face. No blood or frothy urine. Gets intermittent mouth ulcers. No known history of DVT/PE. Her right hand fingers are shortened. does not know if was born like this or this developed over the years. [facility] Medical History Blurred vision, bilateral Depression Esophagitis Essential hypertension Family history of systemic lupus erythematosus Gastric ulcer Heartburn Impaired fasting glucose Insomnia Lumbago with sciatica, left side Mid back pain on left side Obesity (BMI 30-39.9) Polyarthralgia Sessile serrated polyp of colon Vitamin D deficiency Surgical History Hx of colonoscopy Hx of esophagogastroduodenoscopy Family History Father History of renal dialysis Chronic kidney disease (CKD) Substance use disorder Mental health disorder Mother Substance use disorder Mental health disorder Brother Mental health disorder Brother Mental health disorder Brother Mental health disorder Brother Mental health disorder Sister Mental health disorder Sister Mental health disorder Paternal Aunt Crohn's disease Social History Household Members: Family and Other Household Members Other:: Aunt Housing: Apartment Are you a primary child day care center worker to a significant other at home: No Do you presently have visiting nurse or other home services: No Alcohol intake: never Patient Tobacco Use Status: Never used Tobacco e-Cigarette/Vaping Use: Currently Using Second Hand Smoke Exposure: Yes Advance Directives Date on File: 08/26/22 service: No Current occupational status: employed Current occupation: [employer] Sexual orientation: Lesbian/Lomas/Homosexual Cognitive needs: No Hearing needs: No Vision needs: No Female Reproductive History Menstrual Age of Menarche: 13 Review of Systems Const Reports headache(s) ENT Reports headache(s) Musc Reports arthralgias Neuro Reports headache(s) Physical Exam Vital Signs: Last Vital Signs Temp 97.5 F 04/29/23 08:00 Pulse 78 04/29/23 08:00 BP 118/74 04/29/23 08:00 Pulse Ox 98 04/29/23 08:00 BMI result Body Mass Index 42.5 Const General: cooperative, healthy appearing and comfortable Nutritional Appearance: obese morbidly obese Orientation/consciousness: patient oriented x3 Limitations: no limitations HEENT Head: Yes normocephalic and Yes atraumatic Mouth: moist mucous membranes Resp Effort & Inspection: normal respiratory effort and able to speak in complete sentences Auscultation: clear to auscultation bilaterally Cardio Rate: regular rate Rhythm: regular rhythm Neuro General: patient oriented x3 Extrem Other: Diffuse fibromyalgia tender points Normal nailfold capillaroscopy Bilateral knees are cool. Tenderness with knee flexion and extension Osteoarthritic changes & Shorted fingers of right hand Assessment & Plan Assessment & Plan (1) Positive KERI (antinuclear antibody): Code(s): R76.8 - Other specified abnormal immunological findings in serum Plan: This is a 27-year-old patient who presents for evaluation of diffuse pain and positive KERI 1-60 speckled. Upon evaluation I do not see any signs of autoimmune rheumatic disease. Comprehensive serology is unremarkable and normal inflammatory markers. Clinical picture consistent with fibromyalgia. (2) Fibromyalgia, primary: Code(s): M79.7 - Fibromyalgia Plan: Discussed management of fibromyalgia with patient. Is a noninflammatory, non- autoimmune central afferent processing disorder leading to a diffuse pain syndrome. Patient follows up regularly with a psychiatrist and a psychologist. She had a sleep study and per patient it was normal within the last 6 months. I suggested Trying to follow sleep hygiene practices. Discuss CBT for sleep with psychologist. Patient would benefit from increased physical activity, either through formal physical therapy or by joining a gym. Advised patient that she should start activity slowly and increase as tolerated. Consider low-impact exercises such as walking, swimming, aqua therapy stretching, yoga. Follow-up as needed Plan I spent 24 minutes reviewing patient's chart, evaluating patient, counseling patient and documenting in the chart Coding Level of Care Code Est Pt Level 4 (99982) Diagnoses Positive KERI (antinuclear antibody) R76.8 Fibromyalgia, primary M79.7
[2023-04-29 08:00] VITALS: BP 118/74; PULSE 78; TEMP 36.4; O2SAT 98; BMI 42.5
== END 2023-04-29 08:31 | disposition home or self-care (01) ==
PROVIDERS: PCP Internal Medicine; Visit Provider Student in an Organized Health Care Education/Training Program
DX: R76.8 Other specified abnormal immunological findings in serum (principal); M79.7 Fibromyalgia
CPT/HCPCS: 99214

== ENCOUNTER → 2023-04-29 07:58 | Outpatient (BNVA) | payer OTHER, SELFPAY | PROVIDERS: Visit Provider Student in an Organized Health Care Education/Training Program | DX: R12 Heartburn (principal); R10.13 Epigastric pain; K52.9 Noninfective gastroenteritis and colitis, unspecified; K59.9 Functional intestinal disorder, unspecified; R76.8 Other specified abnormal immunological findings in serum; M79.7 Fibromyalgia | CPT/HCPCS: 99212 ==

== ENCOUNTER 2023-04-29 08:59 | Outpatient (AMB) | payer OTHER, SELFPAY ==
--- NOTE | 2023-04-29 09:18 | MHC.OFFVIS ---
Intake Vital Signs 04/29/23 09:21 Height 5 ft 3 in Weight 238 lb 8.642 oz BMI 42.3 BP 131/83 Blood Pressure Location Lt brachial Position Sitting Pulse 77 Intake Visit Reasons: S/P double; Dr. 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 Vasquez HPI Details LAST VISIT Postprandial epigastric pain Patient was encouraged to eat small amounts and more often. We will send him for upper endoscopy Gastric ulcer Start taking sucralfate twice a day Esophagitis Continue pantoprazole every morning half an hour before breakfast. Avoid dietary triggers in late night snacking. Staying upright for minimum 3 hours after meals discussed with patient. Small meals more often encouraged Heartburn Sessile serrated polyp of colon Sessile serrated polyp on colonoscopy in 2019. Patient was unable to do colonoscopy as for he was being evaluated by Cardiology. Currently patient has no cardiac symptoms. Denies any chest pain, palpitation. Denies any respiratory symptoms. He is not on any anticoagulation therapy. No history of sleep apnea. May proceed with the procedure. Patient should go for upper endoscopy as well due to her current symptoms as well as history of esophagitis and gastric ulcer past. Postprandial diarrhea Avoid dietary triggers. Patient can start taking Citrucel. He is not emptying her bowels completely. Patient will hold fiber therapy 1 week before the procedure. I will see him after the procedure, sooner on as needed basis. Patient is agreeable to this plan and verbalizes understanding of instructions. He was given the opportunity to ask questions and all questions answered. ? Thank you for allowing me to participate in his care Plan Medications New bisacodyl (Dulcolax (bisacodyl)) take 2 tabs at noon the day before your colonoscopy 10 mg (2 x 5 mg) PO ONCE 1 day 2 tabs 0RF Z12.11 polyethylene glycol 3350 (Miralax) As directed by gastroenterology department at [facility] 238 grams PO ONCE 238 grams 0RF Z12.11 methylcellulose (laxative) (Citrucel) take it with full glass of water 500 mg PO DAILY 90 tabs 2RF K59.00 sennosides (Natural Senna Laxative) 17.2 mg (2 x 8.6 mg) PO BEDTIME 60 tabs 1RF constipation K59.00 Changed From sucralfate 1 g PO BEDTIME 30 tabs 1RF R10.13 To sucralfate 1 g PO BID 60 tabs 1RF R10.13 UPPER ENDOSCOPY AND COLONOSCOPY Findings: Larynx:normal Esophagus: GE junction at 40? cm, diaphragm hiatus at 40 cm, bx taken from GEJ distal and proximal esophagus Stomach: erythematous mucosa antrum. Biopsies were obtained. Grade 2 flap valve on retroflexed examination of the cardia. Duodenum: Normal bulb and descending duodenum, bx taken Intervention: Biopsies as noted above COLONOSCOPY Findings: There was minimal colonic peristalsis Terminal Ileum-normal, bx taken random bx taken Cecum:normal Ascending Colon: normal Transverse Colon -normal Descending Colon:normal Sigmoid Colon: normal Rectum: Retroflexion with small internal hemorrhoids, grade I Anorectum - normal Colon preparation: Spray Bowel Preparation Scale Right colon; 2 Transverse colon: 2 Left colon; 2 (0 = Unprepared colon segment with mucosa not seen due to solid stool that cannot be cleared. 1 = Portion of mucosa of the colon segment seen, but other areas of the colon segment not well seen due to staining, residual stool and/or opaque liquid. 2 = Minor amount of residual staining, small fragments of stool and/or opaque liquid, but mucosa of colon segment seen well. 3 = Entire mucosa of colon segment seen well with no residual staining, small fragments of stool or opaque liquid) Impression and Post Procedure Diagnosis: Endoscopy Findings: gastritis Colonoscopy Findings: internal hemorrhoids possible colonic inertia Plan: Await Pathology results Repeat Colonoscopy in 5 years due to hx of sessile polyp? or earlier if clinically indicated High fiber diet leaflet avoid straining at stool, epsom salts and sitz bath, anusol supps or cream consider GES and sitz marker test to check for Gi dysmotility PATHOLOGY RESULTS Diagnosis A.? Duodenum, biopsy:? Focal active duodenitis (non-specific); preserved villous architecture and no increased intraepithelial lymphocytes seen.? B.? Stomach, biopsy:? Gastric antral and body mucosa within normal limits; negative for Helicobacter pylori, intestinal metaplasia and dysplasia. C.? Gastroesophageal junction, biopsy:? Squamous and columnar junctional mucosa with mild chronic inactive inflammation; negative for intestinal metaplasia and dysplasia. D.? Esophagus, distal, biopsy:? Squamous mucosa within normal limits; negative for inflammation (including eosinophils), fungal organisms, intestinal metaplasia and dysplasia.? E.? Esophagus, proximal, biopsy:? Squamous mucosa within normal limits; negative for inflammation (including eosinophils), fungal organisms, intestinal metaplasia and dysplasia. F.? Terminal ileum, biopsy:? Ileal mucosa within normal limits; negative for active or chronic ileitis.? G.? Colon, random, biopsy:? Colonic mucosa within normal limits; negative for active, chronic or microscopic colitis. ? TODAY'S VISIT: Patient is here today for follow-up and to discuss upper endoscopy and colonoscopy results. Patient denies any ill effects from the prep, anesthesia or procedure itself. He continues to have occasional acid reflux, however patient does admit to skipping his pantoprazole in the morning. Patient reports that he does not feel like he empties his bowels completely. Not taking Senokot or Citrucel. No change in his diet. No dietary restrictions made. Patient reports occasional postprandial loose stools but mostly feeling like he does not empty his bowels completely. [facility] Medical History (Updated 04/29/23 @ 17:55 by Lesly Nguyen [facility]) Blurred vision, bilateral Depression Esophagitis Essential hypertension Family history of systemic lupus erythematosus Gastric ulcer Heartburn Impaired fasting glucose Insomnia Lumbago with sciatica, left side Mid back pain on left side Obesity (BMI 30-39.9) Polyarthralgia Sessile serrated polyp of colon Vitamin D deficiency Surgical History Hx of colonoscopy Hx of esophagogastroduodenoscopy Family History Father History of renal dialysis Chronic kidney disease (CKD) Substance use disorder Mental health disorder Mother Substance use disorder Mental health disorder Brother Mental health disorder Brother Mental health disorder Brother Mental health disorder Brother Mental health disorder Sister Mental health disorder Sister Mental health disorder Paternal Aunt Crohn's disease Social History Household Members: Family and Other Household Members Other:: Aunt Housing: Apartment Are you a primary youth care professional to a significant other at home: No Do you presently have visiting nurse or other home services: No Alcohol intake: never Patient Tobacco Use Status: Never used Tobacco e-Cigarette/Vaping Use: Currently Using Second Hand Smoke Exposure: Yes Advance Directives Date on File: 08/26/22 service: No Current occupational status: employed Current occupation: [employer] Sexual orientation: Lesbian/Lomas/Homosexual Cognitive needs: No Hearing needs: No Vision needs: No Female Reproductive History Menstrual Age of Menarche: 13 Review of Systems Const Denies weight gain and Denies weight loss ENT Reports no additional complaints, Denies dysphagia and Denies odynophagia Card Reports no additional complaints Resp Reports no additional complaints GI Reports abdominal pain (Epigastric pain), Denies belching, Denies melena, Denies bloating, Reports constipation, Denies dysphagia, Denies excessive flatus, Reports dyspepsia, Reports heartburn, Denies diarrhea, Denies loose stools, Denies nausea, Denies odynophagia and Denies vomiting Reports no additional complaints Musc Reports no additional complaints Neuro Reports no additional complaints Psych Reports no additional complaints Endo Reports no additional complaints Physical Exam Vital Signs: Last Vital Signs Pulse 77 04/29/23 09:21 BP 131/83 04/29/23 09:21 BMI result Body Mass Index 42.3 Const General: healthy appearing and no acute distress Nutritional Appearance: obese Orientation/consciousness: patient oriented x3 HEENT Head: Yes normal to inspection, Yes normocephalic and Yes atraumatic Face and sinus: Yes normal facial exam Mouth: Normal oral and palatal mucosa present Throat: Yes posterior oropharynx normal, Yes tonsils normal and Yes uvula midline Eyes General: appearance normal, both eyes and all related structures Neck Neck: Yes normal visual inspection, Yes full ROM and Yes trachea midline Thyroid: Thyroid normal Resp Effort & Inspection: normal respiratory effort, able to speak in complete sentences, no tracheal deviation and symmetric chest movement Auscultation: clear to auscultation bilaterally Cardio Rate: regular rate Heart sounds: S1 normal heart sound present and S2 normal heart sound present GI Inspection: Yes normal to inspection, No distended and Yes obesity Palpation (GI): Soft to palpation, not firm, nontender and No hepatosplenomegaly present Auscultation: normal bowel sounds General: Yes no CVA tenderness Back/Spine/Pelvis Back: no CVA tenderness Skin General skin exam: elasticity normal, turgor normal and dry skin Neuro General: patient oriented x3 Psych Appearance: grossly normal Mental Status: mental status grossly normal Speech and movement: Normal speech and movement present Affect: normal affect Assessment & Plan Assessment & Plan (1) Heartburn: Code(s): R12 - Heartburn Plan: Patient continues with heartburn, however he was encouraged to take pantoprazole in the morning and sucralfate at night time. Avoid dietary triggers. Eating smaller meals and more often. Avoid laying down for 3 hours after meals (2) Postprandial epigastric pain: Code(s): R10.13 - Epigastric pain Plan: Occasional postprandial epigastric pain and heartburn. Continue current treatment as mentioned above (3) Postprandial diarrhea: Code(s): K52.9 - Noninfective gastroenteritis and colitis, unspecified Plan: Occasional postprandial loose stools. 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 Patient was encouraged to start taking Senokot 2 tablets every evening to help him stimulate his bowels. I will see him in 6 weeks, sooner on as needed basis. Patient is agreeable to this plan and verbalizes understanding of instructions. He was given the opportunity to ask questions and all questions answered. Thank you for allowing me to participate in his care Medications: New sennosides (senna) 17.2 mg (2 x 8.6 mg) PO BEDTIME 60 tabs 3RF constipation Refilled pantoprazole 40 mg PO DAILY@0630 90 tabs 2RF sucralfate 1 g PO BID 180 tabs 2RF R10.13 - Epigastric pain Coding Level of Care Code Est Pt Level 4 (27396) Diagnoses Heartburn R12 Postprandial epigastric pain R10.13 Postprandial diarrhea K52.9 Colonic inertia K59.9 Time Spent (min) 40 Comment 25 minutes spent with patient and additional 15 minutes spent reviewing his records
[2023-04-29 09:21] VITALS: BP 131/83; PULSE 77; BMI 42.3
== END 2023-04-29 09:43 | disposition home or self-care (01) ==
PROVIDERS: PCP Internal Medicine; Visit Provider Nurse Practitioner Family
DX: R10.13 Epigastric pain (principal); K52.9 Noninfective gastroenteritis and colitis, unspecified; K59.9 Functional intestinal disorder, unspecified; R12 Heartburn
CPT/HCPCS: 99214

== ENCOUNTER 2023-05-20 20:45 | Emergency (ER) | payer OTHER, SELFPAY ==
--- NOTE | ~2023-05-20 | CT_ITS ---
EXAMINATION: CT HEAD WITHOUT CONTRAST CLINICAL INFORMATION: Headache for one month. Rule out bleed. COMPARISON: 04/10/2023 TECHNIQUE: Contiguous axial imaging was performed from the skull base to vertex without intravenous contrast. This CT examination was performed using dose optimization techniques as appropriate, variously including the following: * Automated exposure control * Adjustment of mA and/or kV according to patient size (this includes techniques or standardized protocols for targeted exams where dose is matched to indication/reason for exam; i.e. extremities or head) Use of iterative reconstruction technique DLP: 611 mGy-cm. FINDINGS: There is no evidence of acute intracranial hemorrhage or territorial infarction. No abnormal mass effect or midline shift is seen. Gar to white matter differentiation is well preserved. No extra-axial fluid collections are identified. No hydrocephalus. No significant volume loss. There is no abnormal attenuation within the brain parenchyma. The osseous structures and soft tissues are normal. The mastoid air cells and visualized portions of the paranasal sinuses are well aerated. CT/CT head/brain wo IV con IMPRESSION: No acute intracranial pathology.
[2023-05-20 20:47] VITALS: BP 155/91; PULSE 87; RESP 18; TEMP 37.7; O2SAT 97; BMI 40.8
[2023-05-20 21:55] LABS: MANUAL DIFF FLAG NO
[2023-05-20 22:00] LABS: Basophils Absolute Auto 0.1 X10*3/uL (0.0-0.2); Basophils Percent Auto 0.5 % (0-2); Eosinophils Percent Auto 0.2 % (0-4); Hematocrit 42.3 % (37.0-47.0); Imm Gran Abs Auto 0.03 X10*3/uL (0.00-0.03); Imm Gran Pct Auto 0.3 % (0.0-0.4); Lymphocytes Absolute Auto 3.1 X10*3/uL (1.2-4.9); Lymphocytes Percent Auto 33.2 % (20-40); Mean Corpuscular HGB Conc 33.1 g/dl (31.0-35.0); Mean Corpuscular Hemoglobin 26.9 pg (27.0-33.0); Mean Corpuscular Volume 81.3 fL (80.0-98.0); Mean Platelet Volume 9.2 fL (9.4-12.3); Monocytes Absolute Auto 0.4 X10*3/uL (0.1-1.2); Monocytes Percent Auto 4.1 % (2-11); Neutrophils Absolute Auto 5.7 x10*3/uL (2.0-8.3); Neutrophils Percent Auto 61.7 % (45-73); Platelet Count 347 X10*3/uL (160-400); White Blood Count 9.3 X10*3/uL (4.8-10.8)
[2023-05-20 22:11] LABS: Alanine Aminotransferase 29 U/L (0-31); Albumin Level 4.5 g/dL (3.5-5.0); Alkaline Phosphatase 95 U/L (39-117); Anion Gap 15 (12-20); Aspartate Amino Transferase 29 U/L (5-31); Bilirubin Total 0.3 mg/dL (0.0-1.0); Blood Urea Nitrogen 10 mg/dL (9-16); Calcium 10.1 mg/dL (8.4-10.2); Carbon Dioxide 24 mmol/L (22-29); Chloride 105 mmol/L (96-108); Creatinine Clr Calc Pharmacy 109.5; Estimated Glomerular Filt Rate > 60; Glucose Random 109 mg/dL (60-115); Sodium 140 mmol/L (135-145); Total Protein 8.4 g/dL (6.5-8.0)
[2023-05-20 22:15] VITALS: BP 137/90; PULSE 79; RESP 18; TEMP 36.8; O2SAT 99
--- NOTE | 2023-05-20 23:50 | ED.GENADULT ---
HPI - General Adult General Chief complaint: General Medical Stated complaint: pain on neck that radiates down spine to abd Time Seen by Provider: 05/20/23 23:49 Source: patient Mode of arrival: ambulatory Limitations: no limitations History of Present Illness HPI narrative: 27-year-old female who perfers the name Jw, uses the pronouns he/him/his who presents emergency department for evaluation headache x1 month. Patient does not recall the onset of his headache. He states the headache is been constant for 1 month. He states that the headache is a burning sensation in his posterior scalp she states that the pain is 9.5/10 at its worse and is currently severe at the time my evaluation he has had associated nausea, photophobia and phonophobia. He states that the pain is now radiating down his neck and down her back. He describes the radiating pain is a burning sensation. He states she gets occasional numbness in his hands and feet but no perioral numbness. Patient states he had subjective fevers but did not document a fever pain. He states that her temperature this morning was 96 degrees F. he has had occasional chills. He denied rhinorrhea, sore throat, cough, chest pain, shortness of breath, frequency, urgency or dysuria. Related Data Home Medications Medication Instructions Recorded Confirmed mirtazapine 15 mg tablet 15 mg PO BEDTIME 10/22/22 04/29/23 methylphenidate HCl 18 mg 18 mg PO QAM 12/31/22 04/29/23 tablet,extended release 24 hr (Concerta) sertraline 100 mg tablet 100 mg PO DAILY 03/19/23 04/29/23 Previous Rx's Medication Instructions Recorded amlodipine 5 mg tablet 5 mg PO BID 90 days #180 tabs 12/31/22 lidocaine 5 % topical patch 1 patch topical DAILY #15 ea 02/23/23 methylcellulose (laxative) 500 mg 500 mg PO DAILY #90 tabs 03/19/23 tablet (Citrucel) diazepam 5 mg tablet (Valium) 5 mg PO TID PRN dizziness #10 tabs 04/10/23 ibuprofen 600 mg tablet 600 mg PO Q6H pain #20 tabs 04/10/23 meclizine 25 mg tablet 25 mg PO BID PRN dizziness #14 tabs 04/10/23 ondansetron 4 mg disintegrating 4 mg PO Q6H PRN nausea and 04/10/23 tablet vomiting #10 tabs pantoprazole 40 mg tablet,delayed 40 mg PO DAILY@0630 #90 tabs 04/29/23 release sennosides 8.6 mg tablet (senna) 17.2 mg PO BEDTIME constipation 04/29/23 #60 tabs sucralfate 1 gram tablet 1 g PO BID #180 tabs 04/29/23 metoclopramide HCl 10 mg tablet 10 mg PO Q6H PRN nausea and 05/21/23 (Reglan) vomiting #14 tabs Allergies Allergy/AdvReac Type Severity Reaction Status Date / Time Stutsman And Derivatives Allergy Intermediate hives Verified 04/29/23 09:18 [CITRUS] shellfish derived Allergy Intermediate HIVES Verified 04/29/23 09:18 [SHELLFISH DERIVED] SWOLLEN FACE SEAFOOD Allergy Severe ANGIOEDEMA Uncoded 04/29/23 09:18 Review of Systems Review of Systems: Yes all other systems are reviewed and are negative [facility] Past Medical History [facility] Narrative: Social history: She denies tobacco, alcohol and drug use. Medical History Blurred vision, bilateral Depression Esophagitis Essential hypertension Family history of systemic lupus erythematosus Gastric ulcer Heartburn Impaired fasting glucose Insomnia Lumbago with sciatica, left side Mid back pain on left side Obesity (BMI 30-39.9) Polyarthralgia Sessile serrated polyp of colon Vitamin D deficiency Surgical History Hx of colonoscopy Hx of esophagogastroduodenoscopy Family History Family History Father History of renal dialysis Chronic kidney disease (CKD) Substance use disorder Mental health disorder Mother Substance use disorder Mental health disorder Brother Mental health disorder Brother Mental health disorder Brother Mental health disorder Brother Mental health disorder Sister Mental health disorder Sister Mental health disorder Paternal Aunt Crohn's disease Social History Social History Household Members: Family and Other Household Members Other:: Aunt Housing: Apartment Are you a primary home care manager rn to a significant other at home: No Do you presently have visiting nurse or other home services: No Alcohol intake: never Patient Tobacco Use Status: Never used Tobacco Smoked in Last 30 Days: No e-Cigarette/Vaping Use: Currently Using Second Hand Smoke Exposure: Yes Use of substances other than those prescribed or required for medical reasons: No Advance Directives: Yes Advance Directives on File: Yes Advance Directives Date on File: 08/26/22 Patient : No service: No Current occupational status: employed Current occupation: [employer] Sexual orientation: Lesbian/Lomas/Homosexual Cognitive needs: No Hearing needs: No Vision needs: No Physical Exam ED Vital Signs: Vital Signs - 24 hr 05/20/23 20:47 05/20/23 22:15 05/21/23 00:40 Temperature 99.8 F 98.2 F Pulse Rate 87 79 73 Respiratory Rate 18 18 18 Blood Pressure 155/91 H 137/90 H 142/98 H Pulse Oximetry 97 99 98 Oxygen Delivery Method Room Air Room Air 05/21/23 02:37 Temperature 97.9 F Pulse Rate 75 Respiratory Rate 17 Blood Pressure 116/72 Pulse Oximetry 96 Oxygen Delivery Method Room Air BMI result Body Mass Index 40.8 Vital signs did reveal an elevated blood pressure of 155/91 Exam: General: Awake, alert in no distress Head: Normocephalic, atraumatic. No temporal tenderness EENT: PERRL, Lids normal, sclera normal, conjunctiva normal, nose normal , ears normal, throat without erythema or exudates Neck: Supple, no adenopathy, trachea midline and nontender Lung: breath sounds symmetric, no wheezing, rales or rhonchi Chest: symmetric movement, nontender Heart: regular rate and rhythm, normal S1, S2 no murmurs or rubs Abdomen: soft, non-tender, nondistended, normal bowel sounds Back: no vertebral tenderness, no CVAT Extremities: no deformities, moves all extremities symmetrically Skin: no rashes, no lesion, normal color and warmth Neuro: Awake, alert, oriented, normal speech, cranial nerves intact, moves all extremities symmetrically Psych: Pleasant, cooperative Medications Administered Discontinued Medications Generic Name Dose Route Start Last Admin Trade Name Freq PRN Reason Stop Dose Admin Diphenhydramine HCl 50 mg 05/21/23 01:43 05/21/23 02:19 Diphenhydramine Hcl 50 Mg/Ml Vial IVPUSH 05/21/23 01:44 50 mg ONCE STA Administration Sodium Chloride 1,000 mls @ 999 mls/hr 05/21/23 01:48 05/21/23 02:20 Ns IV 05/21/23 02:48 999 mls/hr .Q1H1M STA Administration Ketorolac Tromethamine 15 mg 05/21/23 01:43 05/21/23 02:19 Ketorolac Tromethamine 15 Mg/Ml Vial IVPUSH 05/21/23 01:44 15 mg ONCE STA Administration Metoclopramide HCl 10 mg 05/21/23 01:43 05/21/23 02:20 Metoclopramide Hcl 10 Mg/2 Ml Vial IVPUSH 05/21/23 01:44 10 mg ONCE STA Administration Medical Decision Making Medical Decision Making [facility] Narrative: 27-year-old female uses than the Jw and pronouns he, him and his who presents emergency department for evaluation of a constant headache x1 week, the pain is a burning sensation located in the back of her head that radiates down her neck to his mid back, he has had nausea, photophobia and phonophobia associated with his headache. He has had occasional numbness in her hands and feet but no other significant symptoms. Patient's vital signs did reveal an elevated blood pressure. Exam was unremarkable. Following evaluation was ordered: CBC, CMP, urinalysis, CT scan of the brain. Patient's headache was treated with Reglan 10 mg IV, Benadryl 50 mg IV and Toradol 15 mg IV. I also ordered normal saline x1 L. 0257: The patient states that his pain improved to 6.5/10, he feels significantly better and does not want any more medications and would like to go home. The patient will be started on the following migraine regimen: Reglan 10 mg, Benadryl 50 mg and Excedrin migraine 2 tablets every 6 hours as needed for pain. I did tell the patient this regimen will make him sleepy and that he should lie down in a dark quiet room for at least 1-2 hours after taking the medication to see if it breaks the headache. He was given printed and verbal instructions and discharged home Differential Diagnosis Differential Diagnoses: The differential diagnosis associated with the presentation includes Differential diagnosis includes was not limited to mass effect, bleed, stroke, migraine headache, headache syndrome Admission/Observation Consideration of admission/observation: Escalation of care including admission/observation considered Lab Data MDM Lab Attestation statement: I reviewed the patient's lab results. My independent interpretation patient's laboratory evaluation is as follows: CBC was normal. CMP was normal. Urinalysis was negative 05/20/23 21:51 05/20/23 21:51 Labs: Lab Results 05/20/23 05/20/23 05/21/23 Range/Units 21:51 21:51 00:58 WBC 9.3 (4.8-10.8) X10*3/uL RBC 5.20 (4.20-5.50) X10*6/uL Hgb 14.0 (12.0-16.0) g/dl Hct 42.3 (37.0-47.0) % MCV 81.3 (80.0-98.0) fL MCH 26.9 L (27.0-33.0) pg MCHC 33.1 (31.0-35.0) g/dl RDW 13.0 (11.0-16.0) % Plt Count 347 (160-400) X10*3/uL MPV 9.2 L (9.4-12.3) fL Immature Gran % (Auto) 0.3 (0.0-0.4) % Neut % (Auto) 61.7 (45-73) % Lymph % (Auto) 33.2 (20-40) % [place] % (Auto) 4.1 (2-11) % Eos % (Auto) 0.2 (0-4) % Baso % (Auto) 0.5 (0-2) % Lymph # (Auto) 3.1 (1.2-4.9) X10*3/uL [place] # (Auto) 0.4 (0.1-1.2) X10*3/uL Eos # (Auto) 0.0 (0.0-0.4) X10*3/uL Baso # (Auto) 0.1 (0.0-0.2) X10*3/uL Abs Immat Gran (auto) 0.03 (0.00-0.03) X10*3/uL Absolute Neuts (auto) 5.7 (2.0-8.3) x10*3/uL Absolute Nucleated RBC 0.000 (0.0-0.012) X10*3/uL Nucleated RBC % (auto) 0.0 (0.0-0.2) /100WBC Sodium 140 (135-145) mmol/L Potassium 4.0 (3.3-5.1) mmol/L Chloride 105 (96-108) mmol/L Carbon Dioxide 24 (22-29) mmol/L Anion Gap 15 (12-20) BUN 10 (9-16) mg/dL Creatinine 0.90 (0.5-1.4) mg/dL Estim Creat Clear Calc 109.5 Estimated GFR > 60 Random Glucose 109 (60-115) mg/dL Calcium 10.1 (8.4-10.2) mg/dL Total Bilirubin 0.3 (0.0-1.0) mg/dL AST 29 (5-31) U/L ALT 29 (0-31) U/L Alkaline Phosphatase 95 (39-117) U/L Total Protein 8.4 H (6.5-8.0) g/dL Albumin 4.5 (3.5-5.0) g/dL Urine Color Yellow Urine Appearance Clear Urine pH 6.5 (5.0-9.0) Ur Specific [place] 1.015 (1.005-1.025) Urine Protein Negative (Neg-Trace) mg/dL Urine Glucose (UA) Negative (Negative) mg/dL Urine Ketones Negative (Negative) mg/dL Urine Blood Negative (Negative) Urine Nitrite Negative (Negative) Ur Leukocyte Esterase Negative (Negative) Radiology Impression Discussion of test interpretation with radiology: I have reviewed the radiologist's reading. Radiologist Impression: CT head/brain wo IV con IMPRESSION: No acute intracranial pathology. Dictated By:Justin Iglesias MD Discharge Plan Discharge Clinical Impression: Migraine Patient Disposition: Home, Self-Care Instructions: Migraine Headache (ED) Additional Instructions: Your blood work was unremarkable pain The CT scan of your brain revealed no abnormalities to explain your pain, the CT scan was completely normal. This is reassuring. Your symptoms are consistent with a migraine syndrome I want you to take the following 3 medications together every 6 hours as needed for headache, nausea or vomiting. Reglan (metoclopramide) in 10 mg, 1 pill Benadryl 25 mg, 2 pills Excedrin migraine, 2 pills. After you take these medications, lie down in a dark quiet room and try to fall asleep. These medications will make you sleepy, do not drive or work after taking these medications. Follow-up with your doctor in 2 days. Please return to the emergency department if your symptoms get worse or if you develop any symptoms that are concerning to you. Prescriptions: New metoclopramide HCl [Reglan] 10 mg tablet 10 mg PO Q6H PRN (Reason: nausea and vomiting) Qty: 14 0RF No Action mirtazapine 15 mg tablet 15 mg PO BEDTIME lidocaine 5 % adhesive patch,medicated 1 patch topical DAILY Qty: 15 0RF Rx Instructions: leave on most painful area for up to 12 hrs diazepam [Valium] 5 mg tablet 5 mg PO TID PRN (Reason: dizziness) Qty: 10 0RF meclizine 25 mg tablet 25 mg PO BID PRN (Reason: dizziness) Qty: 14 0RF ibuprofen 600 mg tablet 600 mg PO Q6H Qty: 20 0RF ondansetron 4 mg tablet,disintegrating 4 mg PO Q6H PRN (Reason: nausea and vomiting) Qty: 10 0RF sertraline 100 mg tablet 100 mg PO DAILY methylphenidate HCl [Concerta] 18 mg tablet extended release 24hr 18 mg PO QAM amlodipine 5 mg tablet 5 mg PO BID 90 Days Qty: 180 1RF Protocol: Hold for SBP< HOLD for SBP < : 90 Citrucel 500 mg tablet 500 mg PO DAILY Qty: 90 2RF Rx Instructions: take it with full glass of water pantoprazole 40 mg tablet,delayed release (DR/EC) 40 mg PO DAILY@0630 Qty: 90 2RF sucralfate 1 gram tablet 1 g PO BID Qty: 180 2RF sennosides [senna] 8.6 mg tablet 17.2 mg PO BEDTIME Qty: 60 3RF
[2023-05-21 00:40] VITALS: BP 142/98; PULSE 73; RESP 18; O2SAT 98
[2023-05-21 01:04] LABS: Appearance Urine Clear; Color Urine Yellow; Glucose Urine UA Negative (Negative); Leukocyte Esterase Urine Negative (Negative); Nitrite Urine Negative (Negative); PH 6.5 (5.0-9.0); Specific Gravity - Urine 1.015 (1.005-1.025); Urine Blood Negative (Negative); Urine Ketones Negative (Negative); Urine Protein Negative (Neg-Trace)
[2023-05-21] MEDS: diphenhydrAMINE HCL 50 MG/ML VIAL IVPUSH (02:19)
[2023-05-21] MEDS: Ketorolac Tromethamine 15 MG/ML VIAL IVPUSH (02:19)
[2023-05-21] MEDS: 0.9 % Sodium Chloride 1,000 ML 999 ML IV (02:20)
[2023-05-21] MEDS: Metoclopramide HCl 10 MG/2 ML VIAL IVPUSH (02:20)
[2023-05-21 02:37] VITALS: BP 116/72; PULSE 75; RESP 17; TEMP 36.6; O2SAT 96
== END 2023-05-21 03:45 | disposition home or self-care (01) ==
PROVIDERS: Emergency Provider Emergency Medicine Emergency Medical Services; PCP Internal Medicine
DX: G43.909 Migraine, unspecified, not intractable, without status migrainosus (principal); I10 Essential (primary) hypertension; E66.9 Obesity, unspecified; Z68.41 Body mass index [BMI] 40.0-44.9, adult; Z79.899 Other long term (current) drug therapy
CPT/HCPCS: 36415; 70450; 80053; 81003; 85025; 96361; 96374; 96375; 99284; J1200; J1885; J2765

== ENCOUNTER 2023-05-23 12:30 | Emergency (ER) | payer OTHER, SELFPAY ==
--- NOTE | ~2023-05-23 | CT_ITS ---
EXAMINATION: CT ABDOMEN AND PELVIS WITH CONTRAST CLINICAL INFORMATION: Left upper abdominal pain COMPARISON: 11/01/2022 TECHNIQUE: Multidetector volumetric images were obtained from the superior aspect of the liver through the pubic symphysis following administration 85 mL of Omnipaque 350 intravenous contrast. Sagittal and coronal reformatted images were obtained on the technologist's workstation. Oral contrast: No This CT examination was performed using dose optimization techniques as appropriate, variously including the following: *Automated exposure control *Adjustment of mA and/or kV according to patient size (this includes techniques or standardized protocols for targeted exams where dose is matched to indication/reason for exam; i.e. extremities or head) *Use of iterative reconstruction technique DLP: 995 mGy-cm FINDINGS: LUNG BASES: The visualized lung bases are unremarkable. LIVER, GALLBLADDER, AND BILIARY TREE: The liver is normal in size, shape, and attenuation. No focal hepatic lesion or biliary ductal dilatation is present. The gallbladder is unremarkable with no evidence of radiopaque gallstones, gallbladder wall thickening, or obvious pericholecystic inflammatory changes. PANCREAS: Unremarkable. SPLEEN: Unremarkable. ADRENAL GLANDS: Unremarkable. KIDNEYS AND URETERS: The kidneys are normal in size, shape, and attenuation. No hydronephrosis, hydroureter, or calculi seen. No perinephric stranding. BLADDER: Unremarkable. GASTROINTESTINAL TRACT: The stomach is unremarkable. Normal caliber small bowel. There is no obstruction. No colonic wall thickening or inflammation. There is a normal appendix. No free air or free fluid. ABDOMINAL WALL: No significant hernia is appreciated. LYMPH NODES: Normal. VASCULAR: Unremarkable. PELVIC VISCERA: Unremarkable. OSSEOUS STRUCTURES: No acute or suspicious osseous abnormality. CT/CT abdomen pelvis w IV con IMPRESSION: No acute findings of the abdomen or pelvis. No inflammatory changes. Fleischner guidelines were followed.
[2023-05-23 12:34] VITALS: BP 140/82; PULSE 100; RESP 19; TEMP 37.2; O2SAT 100; BMI 39.1
--- NOTE | 2023-05-23 12:34 | ED_ITS ---
HPI - General Adult General Chief complaint: Abdominal Pain Stated complaint: stomach pain Time Seen by Provider: 05/23/23 19:21 Source: patient, RN notes reviewed and old records reviewed Mode of arrival: ambulatory Limitations: no limitations History of Present Illness HPI narrative: This is a 27-year-old female to male transition patient presents for evaluation of abdominal pain. Patient reports left upper abdominal pain for the last 6 days that worsened today He reports associated nausea vomiting and reports that he feels constipated Denies any history abdominal surgeries He reports today the pain is an 8 on a 10 any describes as ?feels like something is twisting. ? Reports that he was told that he has an issue with his small intestine but does not know the actual diagnosis He is unsure if he has any history of stomach ulcers or peptic ulcer disease No other complaints or concerns at this time Related Data Home Medications Medication Instructions Recorded Confirmed mirtazapine 15 mg tablet 15 mg PO BEDTIME 10/22/22 04/29/23 methylphenidate HCl 18 mg 18 mg PO QAM 12/31/22 04/29/23 tablet,extended release 24 hr (Concerta) sertraline 100 mg tablet 100 mg PO DAILY 03/19/23 04/29/23 Previous Rx's Medication Instructions Recorded amlodipine 5 mg tablet 5 mg PO BID 90 days #180 tabs 12/31/22 lidocaine 5 % topical patch 1 patch topical DAILY #15 ea 02/23/23 methylcellulose (laxative) 500 mg 500 mg PO DAILY #90 tabs 03/19/23 tablet (Citrucel) diazepam 5 mg tablet (Valium) 5 mg PO TID PRN dizziness #10 tabs 04/10/23 ibuprofen 600 mg tablet 600 mg PO Q6H pain #20 tabs 04/10/23 meclizine 25 mg tablet 25 mg PO BID PRN dizziness #14 tabs 04/10/23 ondansetron 4 mg disintegrating 4 mg PO Q6H PRN nausea and 04/10/23 tablet vomiting #10 tabs pantoprazole 40 mg tablet,delayed 40 mg PO DAILY@0630 #90 tabs 04/29/23 release sennosides 8.6 mg tablet (senna) 17.2 mg PO BEDTIME constipation 04/29/23 #60 tabs sucralfate 1 gram tablet 1 g PO BID #180 tabs 07/25/23 metoclopramide HCl 10 mg tablet 10 mg PO Q6H PRN nausea and 05/21/23 (Reglan) vomiting #14 tabs ondansetron 4 mg disintegrating 4 mg PO Q8H PRN nausea and 05/23/23 tablet vomiting #20 tabs sucralfate 1 gram tablet (Carafate) 1 g PO Q6H PRN indigestion #20 tabs 05/23/23 Allergies Allergy/AdvReac Type Severity Reaction Status Date / Time [place] And Derivatives Allergy Intermediate hives Verified 05/23/23 12:34 [CITRUS] shellfish derived Allergy Intermediate HIVES Verified 05/23/23 12:34 [SHELLFISH DERIVED] SWOLLEN FACE SEAFOOD Allergy Severe ANGIOEDEMA Uncoded 05/23/23 12:34 Review of Systems 2 Constitutional: Constitutional: Reports as per HPI, Denies chills, Denies fatigue, Denies fever(s) and Denies headache(s) ENT: Denies headache(s) Cardiovascular: Cardiovascular: Denies chest pain and Denies dyspnea Respiratory: Respiratory: Denies cough and Denies dyspnea Gastrointestinal: Gastrointestinal: Reports abdominal pain, Reports constipation, Reports nausea and Reports vomiting Genitourinary: Genitourinary: Denies dysuria Neurologic: Denies headache(s) and Denies focal weakness Endocrine: Endocrine: Denies fatigue PMFSH Past Medical History Medical History Blurred vision, bilateral Depression Esophagitis Essential hypertension Family history of systemic lupus erythematosus Gastric ulcer Heartburn Impaired fasting glucose Insomnia Lumbago with sciatica, left side Mid back pain on left side Obesity (BMI 30-39.9) Polyarthralgia Sessile serrated polyp of colon Vitamin D deficiency Surgical History Hx of colonoscopy Hx of esophagogastroduodenoscopy Family History Family History Father History of renal dialysis Chronic kidney disease (CKD) Substance use disorder Mental health disorder Mother Substance use disorder Mental health disorder Brother Mental health disorder Brother Mental health disorder Brother Mental health disorder Brother Mental health disorder Sister Mental health disorder Sister Mental health disorder Paternal Aunt Crohn's disease Social History Social History Household Members: Family and Other Household Members Other:: Aunt Housing: Apartment Are you a primary laboratory animal caretaker to a significant other at home: No Do you presently have visiting nurse or other home services: No Alcohol intake: never Patient Tobacco Use Status: Never used Tobacco Smoked in Last 30 Days: Yes e-Cigarette/Vaping Use: Currently Using Second Hand Smoke Exposure: Yes Use of substances other than those prescribed or required for medical reasons: No Advance Directives: Yes Advance Directives on File: Yes Advance Directives Date on File: 08/26/22 Patient : No service: No Current occupational status: employed Current occupation: [employer] Sexual orientation: Lesbian/Lomas/Homosexual Cognitive needs: No Hearing needs: No Vision needs: No Physical Exam ED Vital Signs: Vital Signs - 24 hr 05/23/23 12:34 05/23/23 21:48 Temperature 99 F 97.9 F Pulse Rate 100 62 Respiratory Rate 19 20 Blood Pressure 140/82 H 116/67 Pulse Oximetry 100 98 Oxygen Delivery Method Room Air Room Air BMI result Body Mass Index 39.1 Const General: healthy appearing, comfortable, no acute distress, alert and awake Nutritional Appearance: well nourished Orientation/consciousness: patient oriented x3 HENMT Head: Yes normocephalic and Yes atraumatic Eyes Eyelids: Yes eyelids normal Conjunctivae: conjunctivae normal Sclerae: sclerae normal Corneas: corneas normal Pupils: Equal, round and reactive pupils present EOM: EOMs intact bilaterally Neck Neck: Yes full ROM Resp Effort & Inspection: normal respiratory effort, able to speak in complete sentences and not labored Cardio Rate: regular rate Rhythm: regular rhythm GI Inspection: No distended Palpation (GI): Soft to palpation, not firm, Tenderness to palpation present (GI) in the LUQ; not in the RLQ and not in the RUQ, no guarding and not rigid Auscultation: normoactive bowel sounds Skin General skin exam: no rashes or lesions noted and elasticity normal Neuro General: patient oriented x3 Cranial nerves: Yes Equal, round and reactive pupils present and Yes Bilaterally intact EOM present Cognition (Neuro): normal cognition Extrem Other: Moving all extremities well without any obvious deformities Course Course Course Narrative: RME performed by Lara Murillo PA-C. Patient is a 27 year old assigned female, now male, at presenting to the emergency department with abdominal pain and nausea. Labs and swabs ordered. Patient placed back in the waiting room pending room availability and results. Reevaluation(s) Reevaluation #1: Discussed CT scan results with the patient. She informs me that she actually has follow-up with her GI provider in 10 days time on 06/02. Will prescribe her Carafate for anticipated peptic ulcer disease and she will follow-up with GI as planned Time: 21:55 Medications Administered Discontinued Medications Generic Name Dose Route Start Last Admin Trade Name Freq PRN Reason Stop Dose Admin Sodium Chloride 1,000 mls @ 999 mls/hr 05/23/23 19:30 05/23/23 21:06 Ns IV 05/23/23 20:30 Infused .Q1H1M ALEX Infusion Iohexol 100 ml 05/23/23 20:34 05/23/23 20:35 Iohexol 350 Mg/Ml 100 Ml Infus..Btl IV 05/23/23 20:35 85 ml ONCE ONE Administration Ondansetron HCl 4 mg 05/23/23 19:28 05/23/23 20:00 Ondansetron Hcl 4 Mg/2 Ml Vial IVPUSH 05/23/23 19:29 4 mg ONCE ONE Administration Pantoprazole Sodium 40 mg 05/23/23 19:28 05/23/23 20:00 Pantoprazole Sodium 40 Mg/10 Ml Vial IVPUSH 05/23/23 19:29 40 mg ONCE ONE Administration Medical Decision Making Medical Decision Making [facility] Narrative: 27-year-old male presents for evaluation of abdominal pain.. Patient has had pain for the last 6 days. Reports associated nausea and vomiting. Vital signs are stable and labs are reassuring. Patient does have a very mild increase in ALT above normal. Clinically, the patient most likely has peptic ulcer disease. Will treat with Protonix, Zofran and fluids. Patient requesting a CT scan of the abdomen pelvis because the pain has persisted for 6 days. This was ordered. Less likely to be biliary disease as the patient's pain is in the left and he has no right upper quadrant tenderness Differential Diagnosis Differential Diagnoses: The differential diagnosis associated with the presentation includes Peptic ulcer disease Gastroenteritis Cholelithiasis Acute cholecystitis Lab Data [facility] Lab Attestation statement: I reviewed the patient's lab results. No leukocytosis or left shift. No anemia. Normal platelet count of 359. Electrolytes within normal limits. Normal LFTs and exception of an ALT just above normal at 33 within normal higher limit of 31 05/23/23 13:21 05/23/23 13:21 Labs: Lab Results 05/23/23 05/23/23 05/23/23 Range/Units 13:21 13:21 13:21 WBC 8.7 (4.8-10.8) X10*3/uL RBC 5.22 (4.20-5.50) X10*6/uL Hgb 14.0 (12.0-16.0) g/dl Hct 41.3 (37.0-47.0) % MCV 79.1 L (80.0-98.0) fL MCH 26.8 L (27.0-33.0) pg MCHC 33.9 (31.0-35.0) g/dl RDW 12.8 (11.0-16.0) % Plt Count 359 (160-400) X10*3/uL MPV 9.0 L (9.4-12.3) fL Immature Gran % (Auto) 0.2 (0.0-0.4) % Neut % (Auto) 69.7 (45-73) % Lymph % (Auto) 25.5 (20-40) % Real % (Auto) 3.8 (2-11) % Eos % (Auto) 0.3 (0-4) % Baso % (Auto) 0.5 (0-2) % Lymph # (Auto) 2.2 (1.2-4.9) X10*3/uL Real # (Auto) 0.3 (0.1-1.2) X10*3/uL Eos # (Auto) 0.0 (0.0-0.4) X10*3/uL Baso # (Auto) 0.0 (0.0-0.2) X10*3/uL Abs Immat Gran (auto) 0.02 (0.00-0.03) X10*3/uL Absolute Neuts (auto) 6.1 (2.0-8.3) x10*3/uL Absolute Nucleated RBC 0.000 (0.0-0.012) X10*3/uL Nucleated RBC % (auto) 0.0 (0.0-0.2) /100WBC Sodium 141 (135-145) mmol/L Potassium 3.9 (3.3-5.1) mmol/L Chloride 108 (96-108) mmol/L Carbon Dioxide 22 (22-29) mmol/L Anion Gap 15 (12-20) BUN 13 (9-16) mg/dL Creatinine 0.85 (0.5-1.4) mg/dL Estim Creat Clear Calc 126.0 Estimated GFR > 60 Random Glucose 112 (60-115) mg/dL Calcium 10.3 H (8.4-10.2) mg/dL Magnesium 2.0 (1.6-2.6) mg/dL Total Bilirubin 0.4 (0.0-1.0) mg/dL AST 31 (5-31) U/L ALT 33 H (0-31) U/L Alkaline Phosphatase 99 (39-117) U/L Total Protein 8.2 H (6.5-8.0) g/dL Albumin 4.6 (3.5-5.0) g/dL Beta HCG, Quant < 2 mIU/mL Urine Color Urine Appearance Urine pH (5.0-9.0) Ur Specific [place] (1.005-1.025) Urine Protein (Neg-Trace) mg/dL Urine Glucose (UA) (Negative) mg/dL Urine Ketones (Negative) mg/dL Urine Blood (Negative) Urine Nitrite (Negative) Ur Leukocyte Esterase (Negative) COVID-19 ([facility]) Negative (Negative) COVID-19 Clin Com See Note 05/23/23 Range/Units 20:03 WBC (4.8-10.8) X10*3/uL RBC (4.20-5.50) X10*6/uL Hgb (12.0-16.0) g/dl Hct (37.0-47.0) % MCV (80.0-98.0) fL MCH (27.0-33.0) pg MCHC (31.0-35.0) g/dl RDW (11.0-16.0) % Plt Count (160-400) X10*3/uL MPV (9.4-12.3) fL Immature Gran % (Auto) (0.0-0.4) % Neut % (Auto) (45-73) % Lymph % (Auto) (20-40) % Real % (Auto) (2-11) % Eos % (Auto) (0-4) % Baso % (Auto) (0-2) % Lymph # (Auto) (1.2-4.9) X10*3/uL Real # (Auto) (0.1-1.2) X10*3/uL Eos # (Auto) (0.0-0.4) X10*3/uL Baso # (Auto) (0.0-0.2) X10*3/uL Abs Immat Gran (auto) (0.00-0.03) X10*3/uL Absolute Neuts (auto) (2.0-8.3) x10*3/uL Absolute Nucleated RBC (0.0-0.012) X10*3/uL Nucleated RBC % (auto) (0.0-0.2) /100WBC Sodium (135-145) mmol/L Potassium (3.3-5.1) mmol/L Chloride (96-108) mmol/L Carbon Dioxide (22-29) mmol/L Anion Gap (12-20) BUN (9-16) mg/dL Creatinine (0.5-1.4) mg/dL Estim Creat Clear Calc Estimated GFR Random Glucose (60-115) mg/dL Calcium (8.4-10.2) mg/dL Magnesium (1.6-2.6) mg/dL Total Bilirubin (0.0-1.0) mg/dL AST (5-31) U/L ALT (0-31) U/L Alkaline Phosphatase (39-117) U/L Total Protein (6.5-8.0) g/dL Albumin (3.5-5.0) g/dL Beta HCG, Quant mIU/mL Urine Color Yellow Urine Appearance Clear Urine pH 6.0 (5.0-9.0) Ur Specific [place] 1.025 (1.005-1.025) Urine Protein Negative (Neg-Trace) mg/dL Urine Glucose (UA) Negative (Negative) mg/dL Urine Ketones 15 (Negative) mg/dL Urine Blood Negative (Negative) Urine Nitrite Negative (Negative) Ur Leukocyte Esterase Negative (Negative) COVID-19 ([facility]) (Negative) COVID-19 Clin Com Radiology Impression Discussion of test interpretation with radiology: I have reviewed the radiologist's reading. Radiologist Impression: No acute intra-abdominal pathology Discharge Plan Discharge Clinical Impression: Abdominal pain Patient Disposition: Home, Self-Care Instructions: Peptic Ulcer (ED) Additional Instructions: Your workup in the emergency department today was reassuring. This includes your lab testing, CT imaging. I think your symptoms are most likely related to peptic ulcers You may increase your pantoprazole to 40 mg twice daily for the next week Take Carafate up to 4 times daily as needed for abdominal pain and cramping Follow-up with your GI provider as discussed Return for new or worsening symptoms Prescriptions: New sucralfate [Carafate] 1 gram tablet 1 g PO Q6H PRN (Reason: indigestion) Qty: 20 0RF ondansetron 4 mg tablet,disintegrating 4 mg PO Q8H PRN (Reason: nausea and vomiting) Qty: 20 0RF No Action mirtazapine 15 mg tablet 15 mg PO BEDTIME lidocaine 5 % adhesive patch,medicated 1 patch topical DAILY Qty: 15 0RF Rx Instructions: leave on most painful area for up to 12 hrs metoclopramide HCl [Reglan] 10 mg tablet 10 mg PO Q6H PRN (Reason: nausea and vomiting) Qty: 14 0RF diazepam [Valium] 5 mg tablet 5 mg PO TID PRN (Reason: dizziness) Qty: 10 0RF meclizine 25 mg tablet 25 mg PO BID PRN (Reason: dizziness) Qty: 14 0RF ibuprofen 600 mg tablet 600 mg PO Q6H Qty: 20 0RF ondansetron 4 mg tablet,disintegrating 4 mg PO Q6H PRN (Reason: nausea and vomiting) Qty: 10 0RF sertraline 100 mg tablet 100 mg PO DAILY methylphenidate HCl [Concerta] 18 mg tablet extended release 24hr 18 mg PO QAM amlodipine 5 mg tablet 5 mg PO BID 90 Days Qty: 180 1RF Protocol: Hold for SBP< HOLD for SBP < : 90 Citrucel 500 mg tablet 500 mg PO DAILY Qty: 90 2RF Rx Instructions: take it with full glass of water pantoprazole 40 mg tablet,delayed release (DR/EC) 40 mg PO DAILY@0630 Qty: 90 2RF sucralfate 1 gram tablet 1 g PO BID Qty: 180 2RF sennosides [senna] 8.6 mg tablet 17.2 mg PO BEDTIME Qty: 60 3RF Referrals: Lesly Nguyen, [employer] [Nurse Practitioner] - (? peptic ulcer disease)
[2023-05-23 13:26] LABS: MANUAL DIFF FLAG NO
[2023-05-23 13:28] LABS: Basophils Percent Auto 0.5 % (0-2); Eosinophils Percent Auto 0.3 % (0-4); Hematocrit 41.3 % (37.0-47.0); Imm Gran Abs Auto 0.02 X10*3/uL (0.00-0.03); Imm Gran Pct Auto 0.2 % (0.0-0.4); Lymphocytes Absolute Auto 2.2 X10*3/uL (1.2-4.9); Lymphocytes Percent Auto 25.5 % (20-40); Mean Corpuscular HGB Conc 33.9 g/dl (31.0-35.0); Mean Corpuscular Hemoglobin 26.8 pg (27.0-33.0); Mean Corpuscular Volume 79.1 fL (80.0-98.0); Monocytes Absolute Auto 0.3 X10*3/uL (0.1-1.2); Monocytes Percent Auto 3.8 % (2-11); Neutrophils Absolute Auto 6.1 x10*3/uL (2.0-8.3); Neutrophils Percent Auto 69.7 % (45-73); Platelet Count 359 X10*3/uL (160-400); Red Blood Count 5.22 X10*6/uL (4.20-5.50); Red Cell Distribution Width 12.8 % (11.0-16.0); White Blood Count 8.7 X10*3/uL (4.8-10.8)
[2023-05-23 13:41] LABS: COVID-19 Test Negative (Negative); IDNOW Serial# BCCEAD1C
[2023-05-23 13:54] LABS: Alanine Aminotransferase 33 U/L (0-31); Albumin Level 4.6 g/dL (3.5-5.0); Alkaline Phosphatase 99 U/L (39-117); Anion Gap 15 (12-20); Aspartate Amino Transferase 31 U/L (5-31); Bilirubin Total 0.4 mg/dL (0.0-1.0); Blood Urea Nitrogen 13 mg/dL (9-16); Calcium 10.3 mg/dL (8.4-10.2); Carbon Dioxide 22 mmol/L (22-29); Chloride 108 mmol/L (96-108); Estimated Glomerular Filt Rate > 60; Glucose Random 112 mg/dL (60-115); Potassium 3.9 mmol/L (3.3-5.1); Sodium 141 mmol/L (135-145); Total Protein 8.2 g/dL (6.5-8.0)
[2023-05-23 13:55] LABS: HCG Quantitative < 2 mIU/mL
[2023-05-23] MEDS: ondansetron HCL 4 MG/2 ML VIAL IVPUSH (20:00)
[2023-05-23] MEDS: Pantoprazole Sodium 40 MG/10 ML VIAL IVPUSH (20:00)
[2023-05-23] MEDS: 0.9 % Sodium Chloride 1,000 ML 999 ML IV (20:01)
[2023-05-23 20:18] LABS: Appearance Urine Clear; Color Urine Yellow; Glucose Urine UA Negative (Negative); Leukocyte Esterase Urine Negative (Negative); Nitrite Urine Negative (Negative); Specific Gravity - Urine 1.025 (1.005-1.025); Urine Blood Negative (Negative); Urine Ketones 15 mg/dL (Negative); Urine Protein Negative (Neg-Trace)
[2023-05-23] MEDS: iohexoL 350 MG/ML 100 ML INFUS..BTL IV (20:35)
[2023-05-23 21:48] VITALS: BP 116/67; PULSE 62; RESP 20; TEMP 36.6; O2SAT 98
== END 2023-05-23 22:08 | disposition home or self-care (01) ==
PROVIDERS: Physician Assistant Medical; Emergency Provider Emergency Medicine; PCP Internal Medicine
DX: R10.12 Left upper quadrant pain (principal); Z20.822 Contact with and (suspected) exposure to COVID-19; I10 Essential (primary) hypertension; Z79.899 Other long term (current) drug therapy
CPT/HCPCS: 74177; 80053; 81003; 83735; 84702; 85025; 87635; 96361; 96374; 96375; 99284; J2405; Q9967

== ENCOUNTER 2023-06-02 14:12 | Outpatient (AMB) | payer OTHER, SELFPAY ==
--- NOTE | 2023-06-02 14:17 | MHC.OFFVIS ---
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 Avoid dietary triggers. Eating smaller meals and more often. Avoid laying down for 3 hours after meals Postprandial epigastric pain Occasional postprandial epigastric pain and heartburn. Continue current treatment as mentioned above Postprandial diarrhea Occasional postprandial loose stools. Recommended to take fiber daily Colonic inertia Slow movement of his bowels. Patient was encouraged to start taking Senokot 2 tablets every evening to help him stimulate his bowels. I will see him in 6 weeks, sooner on as needed basis. Patient is agreeable to this plan and verbalizes understanding of instructions. He was given the opportunity to ask questions and all questions answered. ? Thank you for allowing me to participate in his care Plan Medications New sennosides (senna) 17.2 mg (2 x 8.6 mg) PO BEDTIME 60 tabs 3RF constipation Refilled pantoprazole 40 mg PO DAILY@0630 90 tabs 2RF sucralfate 1 g PO BID 180 tabs 2RF R10.13 ED VISIT 05/23/2023 [facility] Narrative: 27-year-old male presents for evaluation of abdominal pain..? Patient has had pain for the last 6 days.? Reports associated nausea and vomiting. Vital signs are stable and labs are reassuring.? Patient does have a very mild increase in ALT above normal.? Clinically, the patient most likely has peptic ulcer disease.? Will treat with Protonix, Zofran and fluids.? Patient requesting a CT scan of the abdomen pelvis because the pain has persisted for 6 days.? This was ordered.? Less likely to be biliary disease as the patient's pain is in the left and he has no right upper quadrant tenderness Differential Diagnosis Differential Diagnoses: The differential diagnosis associated with the presentation includes Peptic ulcer disease Gastroenteritis Cholelithiasis Acute cholecystitis Lab Data MDM Lab Attestation statement: I reviewed the patient's lab results. No leukocytosis or left shift.? No anemia.? Normal platelet count of 359.? Electrolytes within normal limits.? Normal LFTs and exception of an ALT just above normal at 33 within normal higher limit of 31 TODAY'S VISIT: Patient is here today for follow-up and after recently seen in the emergency department for abdominal pain, nausea, vomiting, diarrhea. As mentioned above in providers report from ED patient had normal CT scan, no leukocytosis. Essentially her results were all negative. Patient is not following a low FODMAP diet states that it is too difficult. Patient reports that he is taking mirtazapine at bedtime to help him go to sleep. Perhaps this is stimulating his appetite and patient is month thing more than usual. Patient is taking pantoprazole in the morning and sucralfate twice a day. Patient noted that certain food in makes him feel worse. Patient reports dyspepsia without dysphagia or odynophagia. Denies melena, hematochezia, unintentional weight loss or ribbon like stools. [facility] Medical History Blurred vision, bilateral Depression Esophagitis Essential hypertension Family history of systemic lupus erythematosus Gastric ulcer Heartburn Impaired fasting glucose Insomnia Lumbago with sciatica, left side Mid back pain on left side Obesity (BMI 30-39.9) Polyarthralgia Sessile serrated polyp of colon Vitamin D deficiency Surgical History Hx of colonoscopy Hx of esophagogastroduodenoscopy Family History Father History of renal dialysis Chronic kidney disease (CKD) Substance use disorder Mental health disorder Mother Substance use disorder Mental health disorder Brother Mental health disorder Brother Mental health disorder Brother Mental health disorder Brother Mental health disorder Sister Mental health disorder Sister Mental health disorder Paternal Aunt Crohn's disease Social History Household Members: Family and Other Household Members Other:: Aunt Housing: Apartment Are you a primary director of patient care to a significant other at home: No Do you presently have visiting nurse or other home services: No Alcohol intake: never Patient Tobacco Use Status: Never used Tobacco e-Cigarette/Vaping Use: Currently Using Second Hand Smoke Exposure: Yes Advance Directives Date on File: 08/26/22 service: No Current occupational status: employed 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 [employer] Sexual orientation: Lesbian/Lomas/Homosexual Cognitive needs: No Hearing needs: No Vision needs: No Female Reproductive History Menstrual Age of Menarche: 13 Review of Systems Const Denies weight gain and Denies weight loss ENT Reports no additional complaints, Denies dysphagia and Denies odynophagia Card Reports no additional complaints Resp Reports no additional complaints GI Reports abdominal pain, Denies belching, Denies melena, Reports bloating, Denies change in bowel habits, Denies dysphagia, Denies excessive flatus, Reports dyspepsia, Reports heartburn, Denies diarrhea, Reports loose stools, Reports nausea, Denies odynophagia and Denies vomiting Reports no additional complaints Musc Reports no additional complaints Neuro Reports no additional complaints Psych Reports no additional complaints Endo Reports no additional complaints Physical Exam Vital Signs: Last Vital Signs Pulse 96 06/02/23 14:20 BP 132/80 06/02/23 14:20 BMI result Body Mass Index 38.4 Const General: healthy appearing and no acute distress Nutritional Appearance: obese Orientation/consciousness: patient oriented x3 HEENT Head: Yes normal to inspection, Yes normocephalic and Yes atraumatic Face and sinus: Yes normal facial exam Mouth: Normal oral and palatal mucosa present Throat: Yes posterior oropharynx normal, Yes tonsils normal and Yes uvula midline Eyes General: appearance normal, both eyes and all related structures Neck Neck: Yes normal visual inspection, Yes full ROM and Yes trachea midline Thyroid: Thyroid normal Resp Effort & Inspection: normal respiratory effort, able to speak in complete sentences, no tracheal deviation and symmetric chest movement Auscultation: clear to auscultation bilaterally Cardio Rate: regular rate Heart sounds: S1 normal heart sound present and S2 normal heart sound present GI Inspection: Yes normal to inspection, No distended and Yes obesity Palpation (GI): Soft to palpation, not firm, nontender and No hepatosplenomegaly present Auscultation: normal bowel sounds General: Yes no CVA tenderness Back/Spine/Pelvis Back: no CVA tenderness Skin General skin exam: elasticity normal, turgor normal and dry skin Neuro General: patient oriented x3 Psych Appearance: grossly normal Mental Status: mental status grossly normal Speech and movement: Normal speech and movement present Affect: normal affect Assessment & Plan Assessment & Plan (1) Heartburn: Code(s): R12 - Heartburn Plan: Continue current treatment with PPI and sucralfate. Discussed with patient avoiding dietary triggers discuss avoiding eating late at night. (2) Postprandial epigastric pain: Code(s): R10.13 - Epigastric pain Plan: Postprandial epigastric discomfort. Patient will try to work on changing his diet. Will discuss with his psychologist about trying to switch to a different medication to help him get some rest. Patient reports that when he was taking Reglan he felt worse and that is when he started vomiting. Will check transglutaminase, RAST allergen (3) Postprandial diarrhea: Code(s): K52.9 - Noninfective gastroenteritis and colitis, unspecified Plan: Postprandial loose stools most likely related to the food the patient is eating. Low FODMAP diet discussed with patient again. Patient will try to do elimination diet to see if he will be able to control his symptoms. Will check thyroid study, vitamin-D, B12 and folate. I will see patient in 3 months, sooner on as needed basis. Patient is agreeable to this plan and verbalizes understanding of instructions. He was given the opportunity to ask questions and all questions answered. Thank you for allowing me to participate in his care Orders: Orders Transglutaminase Ab IgG Today R10.9 - Unspecified abdominal pain Transglutaminase IgA Today R10.9 - Unspecified abdominal pain Rast Allergen Today K21.9 - Gastro-esophageal reflux disease without esophagitis TSH reflex Free T4 Today K59.00 - Constipation, unspecified Vitamin B12 and Folate Today R19.7 - Diarrhea, unspecified Vitamin D 25-OH (D2 and D3) Today E55.9 - Vitamin D deficiency, unspecified Medications: Discontinued ondansetron Discontinued Reason: Duplicate 4 mg PO Q6H PRN 10 tabs 0RF nausea and vomiting metoclopramide HCl (Reglan) Discontinued Reason: Patient no longer taking 10 mg PO Q6H PRN 14 tabs 0RF nausea and vomiting Coding Level of Care Code Est Pt Level 4 (21029) Diagnoses Heartburn R12 Postprandial epigastric pain R10.13 Postprandial diarrhea K52.9 Time Spent (min) 35 Comment 20 minutes spent with patient and additional 10 minutes spent reviewing his records
[2023-06-02 14:20] VITALS: BP 132/80; PULSE 96; BMI 38.4
== END 2023-06-02 14:54 | disposition home or self-care (01) ==
PROVIDERS: PCP Internal Medicine; Visit Provider Nurse Practitioner Family
DX: R10.13 Epigastric pain (principal); K52.9 Noninfective gastroenteritis and colitis, unspecified
CPT/HCPCS: 99214

== ENCOUNTER 2023-06-02 14:12 | Outpatient (REF) | payer OTHER, SELFPAY ==
[2023-06-02 16:20] LABS: TSH reflex Free T4 1.64 uIU/mL (0.32-4.0)
[2023-06-02 16:32] LABS: Folate 11.4 ng/mL (> or = 4.0); Vitamin B12 300 pg/mL (200-900)
[2023-06-04 13:44] LABS: Transglutaminase Ab IgG <1.0 U/mL; Transglutaminase IgA <1.0 U/mL
[2023-06-07 13:43] LABS: Vitamin D 25-OH, D2 <4 ng/mL; Vitamin D 25-OH, D3 15 ng/mL; Vitamin D 25-OH, Total 15 ng/mL (30-100)
== END 2023-06-02 14:13 | disposition home or self-care (01) ==
LOC: HO.LAB 14:12
PROVIDERS: PCP Internal Medicine; Visit Provider Nurse Practitioner Family
DX: K21.9 Gastro-esophageal reflux disease without esophagitis (principal); E55.9 Vitamin D deficiency, unspecified; R10.9 Unspecified abdominal pain; R19.7 Diarrhea, unspecified; K59.00 Constipation, unspecified
CPT/HCPCS: 36415; 82306; 82607; 82746; 84443; 86003; 86364; 99212

== ENCOUNTER 2023-06-23 15:33 | Emergency (ER) | payer OTHER, SELFPAY ==
--- NOTE | ~2023-06-23 | XR_ITS ---
EXAMINATION: XR CHEST CLINICAL INFORMATION: Chest pain COMPARISON: Chest x-ray December 16, 2022 TECHNIQUE: 2 views of the chest were obtained. FINDINGS: No significant abnormality is noted involving the heart, lungs, mediastinum, bony thorax or soft tissues. XR/XR chest 2V IMPRESSION: Unremarkable examination.
[2023-06-23 16:41] VITALS: BP 159/94; PULSE 92; RESP 18; TEMP 36.8; O2SAT 99; BMI 41.6
--- NOTE | 2023-06-23 16:41 | ED_ITS ---
HPI - General Adult General Chief complaint: Dizziness Stated complaint: not feeling well Time Seen by Provider: 06/23/23 21:23 Source: patient Mode of arrival: ambulatory History of Present Illness HPI narrative: This is a 27-year-old patient who presents with complaints of dizziness for 1 week and associated intermittent fevers with T-max of 100 degrees to 3 days ago, otherwise denies any new cough, sore throat but reports some chest pain yesterday, some nausea and vomiting earlier today at approximately 15:00 but otherwise denies urinary symptoms and LMP 2 weeks ago. Related Data Home Medications Medication Instructions Recorded Confirmed mirtazapine 15 mg tablet 15 mg PO BEDTIME 10/22/22 04/29/23 methylphenidate HCl 18 mg 18 mg PO QAM 12/31/22 04/29/23 tablet,extended release 24 hr (Concerta) sertraline 100 mg tablet 100 mg PO DAILY 03/19/23 04/29/23 Previous Rx's Medication Instructions Recorded amlodipine 5 mg tablet 5 mg PO BID 90 days #180 tabs 12/31/22 lidocaine 5 % topical patch 1 patch topical DAILY #15 ea 02/23/23 methylcellulose (laxative) 500 mg 500 mg PO DAILY #90 tabs 03/19/23 tablet (Citrucel) diazepam 5 mg tablet (Valium) 5 mg PO TID PRN dizziness #10 tabs 04/10/23 ibuprofen 600 mg tablet 600 mg PO Q6H pain #20 tabs 04/10/23 meclizine 25 mg tablet 25 mg PO BID PRN dizziness #14 tabs 04/10/23 pantoprazole 40 mg tablet,delayed 40 mg PO DAILY@0630 #90 tabs 04/29/23 release sennosides 8.6 mg tablet (senna) 17.2 mg (2 x 8.6 mg) PO BEDTIME 04/29/23 constipation #60 tabs sucralfate 1 gram tablet 1 g PO BID #180 tabs 04/29/23 ondansetron 4 mg disintegrating 4 mg PO Q8H PRN nausea and 05/23/23 tablet vomiting #20 tabs sucralfate 1 gram tablet (Carafate) 1 g PO Q6H PRN indigestion #20 tabs 05/23/23 cholecalciferol (vitamin D3) 50 50 mcg PO DAILY #90 caps 06/10/23 mcg (2,000 unit) capsule meclizine 12.5 mg tablet 12.5 mg PO TID PRN dizziness #14 06/23/23 tabs ondansetron HCl 4 mg tablet 4 mg PO Q8H PRN nausea and 06/23/23 vomiting 4 days #7 tabs Allergies Allergy/AdvReac Type Severity Reaction Status Date / Time [place] And Derivatives Allergy Intermediate hives Verified 06/23/23 16:41 [CITRUS] shellfish derived Allergy Intermediate HIVES Verified 06/23/23 16:41 [SHELLFISH DERIVED] SWOLLEN FACE SEAFOOD Allergy Severe ANGIOEDEMA Uncoded 06/02/23 14:23 Review of Systems 2 Review of Systems: Pertinent positives and negatives as stated in HPI [facility] Past Medical History Source: nursing notes reviewed Medical History Blurred vision, bilateral Depression Esophagitis Essential hypertension Family history of systemic lupus erythematosus Gastric ulcer Heartburn Impaired fasting glucose Insomnia Lumbago with sciatica, left side Mid back pain on left side Obesity (BMI 30-39.9) Polyarthralgia Sessile serrated polyp of colon Vitamin D deficiency Surgical History Hx of colonoscopy Hx of esophagogastroduodenoscopy Family History Family History Father History of renal dialysis Chronic kidney disease (CKD) Substance use disorder Mental health disorder Mother Substance use disorder Mental health disorder Brother Mental health disorder Brother Mental health disorder Brother Mental health disorder Brother Mental health disorder Sister Mental health disorder Sister Mental health disorder Paternal Aunt Crohn's disease Social History Social History Household Members: Family and Other Household Members Other:: Aunt Housing: Apartment Are you a primary veterinarian laboratory animal care to a significant other at home: No Do you presently have visiting nurse or other home services: No Alcohol intake: never Patient Tobacco Use Status: Never used Tobacco Smoked in Last 30 Days: No e-Cigarette/Vaping Use: Currently Using Second Hand Smoke Exposure: Yes Use of substances other than those prescribed or required for medical reasons: No Advance Directives: Yes Advance Directives on File: Yes Advance Directives Date on File: 08/26/22 service: No Current occupational status: employed 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 GENERAL: Well developed, well nourished, in no acute distress. HEAD: Normocephalic/atraumatic EYES: PERRLA, EOMI EARS: Ext canals without abnormality, TMs non-bulging and non-erythematous NOSE: Nares patent bilateral OROPHARYNX: no oral lesions noted, posterior pharynx clear and non-erythematous without noted tonsillar enlargement/erythema/exudates NECK: Supple, no adenopathy LUNGS: Normal breath sounds. No adventitious sounds or accessory muscle use. SpO2<97> CARDIOVASCULAR: Regular rate and rhythm without noted murmurs, no JVD or lower extremity edema. ABDOMEN: Soft, non-tender, non-distended with bowel sounds. MUSCULOSKELETAL: No tenderness, deformities, or effusions noted on gross inspection. EXTREMITIES: No cyanosis, clubbing or edema. SKIN: Inspection of the skin reveals no rashes NEUROLOGIC: Alert and oriented x 4. Strength and sensation to light touch were grossly intact x 4. Course Course Course Narrative: RME - 27 yo transgender female to male with history of HTN, depression, fibromyalgia who presents to the ER for evaluation of headache, dizziness, nausea, vomiting x3, for the last week. Reports 9/10 left sided chest pain that started yesterday, headache along with subjective fever and chills. Plan: EKG, lab work, viral studies, CXR Medical Decision Making Medical Decision Making MDM Narrative: 27-year-old patient with history and clinical presentation, DDX: Viral syndrome and likely dizziness is associated with this as it appears to be postural in nature so suspect a BPPV, lower clinical suspicion for bacterial infection and no suspicion for meningitis, possibility of migraines but felt to be less likely as there are no prior diagnoses of this. Much lower clinical suspicion for cardiac arrhythmia or electrolyte abnormalities. I reviewed all investigations and hematologic indices are negative for leukocytosis or left shift, there is no anemia or thrombocytopenia. Patient has remained afebrile. Chemistry and sees a gross within normal limits without LOY and no evidence of electrolyte or liver enzyme abnormalities and high sensitivity troponin is undetectable. Orthostatics are negative. Urinalysis negative for UTI or hematuria and suspected contaminated as there are numerous squamous epithelial cells. Viral testing is negative for influenza and COVID-19 at this time. Chest x-ray negative for infiltrate and otherwise my interpretation is in agreement with radiology's impression. EKG without evidence of STEMI or significant arrhythmia. Compared to prior in 12/2022 lateral leads appear unchanged. It is my interpretation that this is a benign positional vertigo that is likely leading to a component of nausea which will be treated with Zofran and meclizine. Differential Diagnosis Differential Diagnoses: The differential diagnosis associated with the presentation includes Please see the discussion above Admission/Observation Consideration of admission/observation: Escalation of care including admission/observation considered Please see the discussion above Lab Data MDM Lab Attestation statement: I reviewed the patient's lab results. Please see the discussion above 06/23/23 17:03 06/23/23 17:03 Labs: Lab Results 06/23/23 06/23/23 Range/Units 17:03 20:23 WBC 9.6 (4.8-10.8) X10*3/uL RBC 5.19 (4.20-5.50) X10*6/uL Hgb 13.9 (12.0-16.0) g/dl Hct 42.2 (37.0-47.0) % MCV 81.3 (80.0-98.0) fL MCH 26.8 L (27.0-33.0) pg MCHC 32.9 (31.0-35.0) g/dl RDW 13.1 (11.0-16.0) % Plt Count 337 (160-400) X10*3/uL MPV 9.3 L (9.4-12.3) fL Immature Gran % (Auto) 0.2 (0.0-0.4) % Neut % (Auto) 72.4 (45-73) % Lymph % (Auto) 23.1 (20-40) % [place] % (Auto) 3.8 (2-11) % Eos % (Auto) 0.2 (0-4) % Baso % (Auto) 0.3 (0-2) % Lymph # (Auto) 2.2 (1.2-4.9) X10*3/uL [place] # (Auto) 0.4 (0.1-1.2) X10*3/uL Eos # (Auto) 0.0 (0.0-0.4) X10*3/uL Baso # (Auto) 0.0 (0.0-0.2) X10*3/uL Abs Immat Gran (auto) 0.02 (0.00-0.03) X10*3/uL Absolute Neuts (auto) 7.0 (2.0-8.3) x10*3/uL Absolute Nucleated RBC 0.000 (0.0-0.012) X10*3/uL Nucleated RBC % (auto) 0.0 (0.0-0.2) /100WBC Sodium 138 (135-145) mmol/L Potassium 3.9 (3.3-5.1) mmol/L Chloride 106 (96-108) mmol/L Carbon Dioxide 23 (22-29) mmol/L Anion Gap 13 (12-20) BUN 11 (9-16) mg/dL Creatinine 0.82 (0.5-1.4) mg/dL Estim Creat Clear Calc 121.6 Estimated GFR > 60 Random Glucose 105 (60-115) mg/dL Calcium 9.7 (8.4-10.2) mg/dL Magnesium 2.0 (1.6-2.6) mg/dL Total Bilirubin 0.4 (0.0-1.0) mg/dL Direct Bilirubin 0.1 (0.0-0.5) mg/dL AST 26 (5-31) U/L ALT 27 (0-31) U/L Alkaline Phosphatase 92 (39-117) U/L Troponin I High Sens < 2.7 (<3.5-17.0) ng/L Total Protein 8.1 H (6.5-8.0) g/dL Albumin 4.5 (3.5-5.0) g/dL Beta HCG, Quant < 2 mIU/mL Urine Color Yellow Urine Appearance Clear Urine pH 7.5 (5.0-9.0) Ur Specific [place] >= 1.030 H (1.005-1.025) Urine Protein Trace (Neg-Trace) mg/dL Urine Glucose (UA) Negative (Negative) mg/dL Urine Ketones Trace (Negative) mg/dL Urine Blood Negative (Negative) Urine Nitrite Negative (Negative) Ur Leukocyte Esterase Trace H (Negative) Urine RBC 0-2 (0-2) /HPF Urine WBC 0-5 (0-5) /HPF Ur Squamous Epith Cells 11-20 (0-2) /HPF Urine Bacteria None Seen (None Seen) Hyaline Casts 0-2 (0-2) /LPF Influenza Type A (PCR) NEGATIVE (Negative) Influenza Type B (PCR) NEGATIVE (Negative) RSV RNA Qual (PCR) NEGATIVE (Negative) SARS-CoV-2 RNA (RT-PCR) NEGATIVE (Negative) Independent Interpretation I performed an independent interpretation of an: EKG Interpretation: Normal sinus rhythm, HR-88, no STEMI, nonspecific T-wave abnormalities which were present in December of this year, NE/QRS/QTC is within normal limits. Radiology Impression Discussion of test interpretation with radiology: I have reviewed the radiologist's reading. Radiologist Impression: Please see the discussion above External Record Review External record reviewed: Outpatient record, Prior outpatient labs and Prior outpatient radiology Chronic Conditions Patient?s care impacted by: Hypertension Discharge Plan Discharge Clinical Impression: Benign paroxysmal positional vertigo Patient Disposition: Home, Self-Care Instructions: Vertigo (ED), Benign Paroxysmal Positional Vertigo (ED) Additional Instructions: 1. Resume all home medications as prescribed. 2. You have been prescribed Zofran for your nausea and meclizine for your vertigo. 3. Please follow-up with primary care provider by calling the office 1st thing in the morning and setting up an appointment for re-evaluation. Return to the ER for any worsening symptoms. Prescriptions: New ondansetron HCl 4 mg tablet 4 mg PO Q8H PRN (Reason: nausea and vomiting) 4 Days Qty: 7 0RF meclizine 12.5 mg tablet 12.5 mg PO TID PRN (Reason: dizziness) Qty: 14 0RF No Action cholecalciferol (vitamin D3) 50 mcg (2,000 unit) capsule 50 mcg PO DAILY Qty: 90 3RF mirtazapine 15 mg tablet 15 mg PO BEDTIME lidocaine 5 % adhesive patch,medicated 1 patch topical DAILY Qty: 15 0RF Rx Instructions: leave on most painful area for up to 12 hrs diazepam [Valium] 5 mg tablet 5 mg PO TID PRN (Reason: dizziness) Qty: 10 0RF meclizine 25 mg tablet 25 mg PO BID PRN (Reason: dizziness) Qty: 14 0RF ibuprofen 600 mg tablet 600 mg PO Q6H Qty: 20 0RF sucralfate [Carafate] 1 gram tablet 1 g PO Q6H PRN (Reason: indigestion) Qty: 20 0RF ondansetron 4 mg tablet,disintegrating 4 mg PO Q8H PRN (Reason: nausea and vomiting) Qty: 20 0RF sertraline 100 mg tablet 100 mg PO DAILY methylphenidate HCl [Concerta] 18 mg tablet extended release 24hr 18 mg PO QAM amlodipine 5 mg tablet 5 mg PO BID 90 Days Qty: 180 1RF Protocol: Hold for SBP< HOLD for SBP < : 90 Citrucel 500 mg tablet 500 mg PO DAILY Qty: 90 2RF Rx Instructions: take it with full glass of water pantoprazole 40 mg tablet,delayed release (DR/EC) 40 mg PO DAILY@0630 Qty: 90 2RF sucralfate 1 gram tablet 1 g PO BID Qty: 180 2RF sennosides [senna] 8.6 mg tablet 17.2 mg PO BEDTIME Qty: 60 3RF Referrals: Gauri Samano MD [Primary Care Provider] -
--- NOTE | 2023-06-23 16:42 | ECG_ITS ---
Test Reason : dizziness Blood Pressure : / mmHG Vent. Rate : 088 BPM Atrial Rate : 088 BPM P-R Int : 140 ms QRS Dur : 084 ms QT Int : 354 ms P-R-T Axes : 036 001 041 degrees QTc Int : 428 ms Normal sinus rhythm Nonspecific T wave abnormality Abnormal ECG When compared with ECG of 16-DEC-2022 20:58, No significant change was found Referred By: Eleni Rey Electronically Signed By:ODIN ABREU
[2023-06-23 17:10] LABS: MANUAL DIFF FLAG NO
[2023-06-23 17:23] LABS: Basophils Percent Auto 0.3 % (0-2); Eosinophils Percent Auto 0.2 % (0-4); Hematocrit 42.2 % (37.0-47.0); Hemoglobin 13.9 g/dl (12.0-16.0); Imm Gran Abs Auto 0.02 X10*3/uL (0.00-0.03); Imm Gran Pct Auto 0.2 % (0.0-0.4); Lymphocytes Absolute Auto 2.2 X10*3/uL (1.2-4.9); Lymphocytes Percent Auto 23.1 % (20-40); Mean Corpuscular HGB Conc 32.9 g/dl (31.0-35.0); Mean Corpuscular Hemoglobin 26.8 pg (27.0-33.0); Mean Corpuscular Volume 81.3 fL (80.0-98.0); Mean Platelet Volume 9.3 fL (9.4-12.3); Monocytes Absolute Auto 0.4 X10*3/uL (0.1-1.2); Monocytes Percent Auto 3.8 % (2-11); Neutrophils Percent Auto 72.4 % (45-73); Platelet Count 337 X10*3/uL (160-400); Red Blood Count 5.19 X10*6/uL (4.20-5.50); Red Cell Distribution Width 13.1 % (11.0-16.0); White Blood Count 9.6 X10*3/uL (4.8-10.8)
[2023-06-23 17:33] LABS: Alanine Aminotransferase 27 U/L (0-31); Albumin Level 4.5 g/dL (3.5-5.0); Alkaline Phosphatase 92 U/L (39-117); Anion Gap 13 (12-20); Aspartate Amino Transferase 26 U/L (5-31); Bilirubin Direct 0.1 mg/dL (0.0-0.5); Bilirubin Total 0.4 mg/dL (0.0-1.0); Blood Urea Nitrogen 11 mg/dL (9-16); Calcium 9.7 mg/dL (8.4-10.2); Carbon Dioxide 23 mmol/L (22-29); Chloride 106 mmol/L (96-108); Creatinine Clr Calc Pharmacy 121.6; Estimated Glomerular Filt Rate > 60; Glucose Random 105 mg/dL (60-115); Potassium 3.9 mmol/L (3.3-5.1); Sodium 138 mmol/L (135-145); Total Protein 8.1 g/dL (6.5-8.0)
[2023-06-23 17:38] LABS: Troponin-I High Sensitivity < 2.7 ng/L (<3.5-17.0)
[2023-06-23 18:00] LABS: Influenza A PCR NEGATIVE (Negative); Influenza B PCR NEGATIVE (Negative); Resp Syncy Virus RNA Qual PCR NEGATIVE (Negative); SARS COV2 PCR INHOUSE NEGATIVE (Negative)
[2023-06-23 20:13] VITALS: BP 146/102; PULSE 89; O2SAT 97
[2023-06-23 20:31] LABS: Appearance Urine Clear; Color Urine Yellow; Glucose Urine UA Negative (Negative); Leukocyte Esterase Urine Trace (Negative); Nitrite Urine Negative (Negative); PH 7.5 (5.0-9.0); Specific Gravity - Urine >= 1.030 (1.005-1.025); UMIC TRIGGER UACC YES; Urine Blood Negative (Negative); Urine Ketones Trace mg/dL (Negative); Urine Protein Trace mg/dL (Neg-Trace)
[2023-06-23 20:38] LABS: Bacteria Urine None Seen (None Seen); Hyaline Casts Urine 0-2 /LPF (0-2); RBC Urine 0-2 /HPF (0-2); WBC Urine 0-5 /HPF (0-5)
[2023-06-23 21:45] VITALS: BP 137/84; BP 154/94; PULSE 75; PULSE 80
[2023-06-23 21:47] VITALS: BP 159/105; PULSE 88
[2023-06-23 22:01] LABS: HCG Quantitative < 2 mIU/mL
[2023-06-23] MEDS: Meclizine HCl 12.5 MG TABLET PO (22:51)
[2023-06-23] MEDS: Ondansetron ODT 4 MG TAB.RAPDIS TRANSLINGU (22:51)
== END 2023-06-23 22:55 | disposition home or self-care (01) ==
PROVIDERS: Physician Assistant; Emergency Provider Student in an Organized Health Care Education/Training Program; PCP Internal Medicine
DX: H81.13 Benign paroxysmal vertigo, bilateral (principal); R50.9 Fever, unspecified; R94.31 Abnormal electrocardiogram [ECG] [EKG]; Z20.822 Contact with and (suspected) exposure to COVID-19; Z20.828 Contact with and (suspected) exposure to other viral communicable diseases; Z79.899 Other long term (current) drug therapy
CPT/HCPCS: 0241U; 36415; 71046; 80048; 80076; 81001; 83735; 84484; 84702; 85025; 93005; 99283; 99285

== ENCOUNTER 2023-07-25 08:21 | Emergency (ER) | payer OTHER, SELFPAY ==
[2023-07-25 08:29] VITALS: BP 152/86; PULSE 77; RESP 18; TEMP 36.7; O2SAT 97; BMI 40.7
--- NOTE | 2023-07-25 08:39 | ED.BACK ---
HPI - Back Pain/Injury General Chief Complaint: Back Pain/Injury Stated Complaint: weak back pain Time Seen by Provider: 07/25/23 08:38 Source: patient and old records reviewed Mode of arrival: ambulatory Limitations: no limitations History of Present Illness HPI Narrative: 27 yo transgender female to male with history of fibromyalgia, history of polyarthralgia, KERI positive, depression, HTN, GERD who presents to the ER for evaluation of generalized weakness and middle back pain x4 days along w/ dark stool x1 yesterday. He reports pain is in the middle of the back and radiates to both sides, worse with movement. He denies any injury or heavy lifting. Endorses increased urinary frequency but no dysuria, hematuria, abdominal pain, fever, chills, URI symptoms. He reports last night had 1 episode of dark, almost black, stool without any associated pain. History of similar episodes for which he has seen GI but did not know the outcome. MD elicited complaint: back pain and other (weakness, black stool x1) Onset (ago): day(s) (4) Timing: constant Severity: moderate Similar Symptoms Previously: No Quality: aching Exacerbating factors: movement and deep breaths Relieving factors: immobilization Context: unknown Associated symptoms: weakness and increased urinary frequency Treatments prior to arrival: NSAIDS Work related injury: No Related Data Home Medications Medication Instructions Recorded Confirmed mirtazapine 15 mg tablet 15 mg PO BEDTIME 10/22/22 04/29/23 methylphenidate HCl 18 mg 18 mg PO QAM 12/31/22 04/29/23 tablet,extended release 24 hr (Concerta) sertraline 100 mg tablet 100 mg PO DAILY 03/19/23 04/29/23 Previous Rx's Medication Instructions Recorded lidocaine 5 % topical patch 1 patch topical DAILY #15 ea 02/23/23 methylcellulose (laxative) 500 mg 500 mg PO DAILY #90 tabs 03/19/23 tablet (Citrucel) diazepam 5 mg tablet (Valium) 5 mg PO TID PRN dizziness #10 tabs 04/10/23 ibuprofen 600 mg tablet 600 mg PO Q6H pain #20 tabs 04/10/23 meclizine 25 mg tablet 25 mg PO BID PRN dizziness #14 tabs 04/10/23 pantoprazole 40 mg tablet,delayed 40 mg PO DAILY@0630 #90 tabs 04/29/23 release sennosides 8.6 mg tablet (senna) 17.2 mg (2 x 8.6 mg) PO BEDTIME 04/29/23 constipation #60 tabs sucralfate 1 gram tablet 1 g PO BID #180 tabs 04/29/23 ondansetron 4 mg disintegrating 4 mg PO Q8H PRN nausea and 05/23/23 tablet vomiting #20 tabs sucralfate 1 gram tablet (Carafate) 1 g PO Q6H PRN indigestion #20 tabs 05/23/23 cholecalciferol (vitamin D3) 50 50 mcg PO DAILY #90 caps 06/10/23 mcg (2,000 unit) capsule meclizine 12.5 mg tablet 12.5 mg PO TID PRN dizziness #14 06/23/23 tabs ondansetron HCl 4 mg tablet 4 mg PO Q8H PRN nausea and 06/23/23 vomiting 4 days #7 tabs amlodipine 5 mg tablet 5 mg PO BID #180 tabs 07/03/23 cyclobenzaprine 10 mg tablet 10 mg PO TID PRN muscle spasm #14 07/25/23 tabs lidocaine 5 % topical patch 1 patch topical DAILY #15 ea 07/25/23 naproxen 500 mg tablet 500 mg PO BID PRN pain #20 tabs 07/25/23 Allergies Allergy/AdvReac Type Severity Reaction Status Date / Time [place] And Derivatives Allergy Intermediate hives Verified 07/25/23 08:31 [CITRUS] shellfish derived Allergy Intermediate HIVES Verified 07/25/23 08:31 [SHELLFISH DERIVED] SWOLLEN FACE SEAFOOD Allergy Severe ANGIOEDEMA Uncoded 07/25/23 08:31 Review of Systems Review of Systems: Yes all other systems are reviewed and are negative [facility] Past Medical History Medical History Blurred vision, bilateral Depression Esophagitis Essential hypertension Family history of systemic lupus erythematosus Gastric ulcer Heartburn Impaired fasting glucose Insomnia Lumbago with sciatica, left side Mid back pain on left side Obesity (BMI 30-39.9) Polyarthralgia Sessile serrated polyp of colon Vitamin D deficiency Surgical History Hx of colonoscopy Hx of esophagogastroduodenoscopy Family History Family History Father History of renal dialysis Chronic kidney disease (CKD) Substance use disorder Mental health disorder Mother Substance use disorder Mental health disorder Brother Mental health disorder Brother Mental health disorder Brother Mental health disorder Brother Mental health disorder Sister Mental health disorder Sister Mental health disorder Paternal Aunt Crohn's disease Social History Social History Household Members: Family and Other Household Members Other:: Aunt Housing: Apartment Are you a primary lawn care specialist to a significant other at home: No Do you presently have visiting nurse or other home services: No Alcohol intake: never Patient Tobacco Use Status: Never used Tobacco e-Cigarette/Vaping Use: Currently Using Second Hand Smoke Exposure: Yes Advance Directives: Yes Advance Directives on File: Yes Advance Directives Date on File: 08/26/22 service: No Current occupational status: employed 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 Oriented X3. No acute distress. Head: normocephalic, atraumatic. Eyes: Pupils equal, round and reactive to light. ENT: Pharynx normal. No tonsillar swelling or exudate. Neck: Normal inspection. Neck supple. CVS: Normal heart rate and rhythm. Pulses normal. Respiratory: No respiratory distress. Breath sounds normal. Abdomen: Obese, soft and nontender. +BS x4 Back: middle back with tenderness of the soft tissues, +CVA tenderness bilaterally. Skin: Skin warm and dry. Normal skin color. Normal skin turgor. No rashes. Extremities: No lower extremity edema. No joint swelling. Neuro/psych: Oriented X 3. No motor deficit. No sensory deficit. CN II-XII intact. Normal speech and cognition. Medical Decision Making Medical Decision Making MDM Narrative: 27 yo female presenting with generalized weakness, middle back pain and black BM x1 last night. No associated abdominal pain. No fever or chills. Physical examination is benign. Lab workup today showed normal H/H. UA negative for infection. COVID negative. Given normal H/H EMMA deferred per patient request. Back pain is most likely muscular in nature. Doubt UGIB with no recurrent BM's since last night and normal H/H. At this time patient is stable for discharge with plan to f/u with PCP. Return precautions discussed. Differential Diagnosis Differential Diagnoses: The differential diagnosis associated with the presentation includes acute pyelonephritis, MSK back pain, COVID, other viral syndrome, UGIB, symptomatic anemia Admission/Observation Consideration of admission/observation: Escalation of care including admission/observation considered Lab Data [facility] Lab Attestation statement: I reviewed the patient's lab results. no anemia 07/25/23 09:07 07/25/23 09:07 Labs: Lab Results 07/25/23 Range/Units 09:07 WBC 7.0 (4.8-10.8) X10*3/uL RBC 5.13 (4.20-5.50) X10*6/uL Hgb 13.8 (12.0-16.0) g/dl Hct 41.4 (37.0-47.0) % MCV 80.7 (80.0-98.0) fL MCH 26.9 L (27.0-33.0) pg MCHC 33.3 (31.0-35.0) g/dl RDW 13.2 (11.0-16.0) % Plt Count 314 (160-400) X10*3/uL MPV 9.3 L (9.4-12.3) fL Immature Gran % (Auto) 0.3 (0.0-0.4) % Neut % (Auto) 65.8 (45-73) % Lymph % (Auto) 28.4 (20-40) % Barron % (Auto) 4.4 (2-11) % Eos % (Auto) 0.7 (0-4) % Baso % (Auto) 0.4 (0-2) % Lymph # (Auto) 2.0 (1.2-4.9) X10*3/uL Barron # (Auto) 0.3 (0.1-1.2) X10*3/uL Eos # (Auto) 0.1 (0.0-0.4) X10*3/uL Baso # (Auto) 0.0 (0.0-0.2) X10*3/uL Abs Immat Gran (auto) 0.02 (0.00-0.03) X10*3/uL Absolute Neuts (auto) 4.6 (2.0-8.3) x10*3/uL Absolute Nucleated RBC 0.000 (0.0-0.012) X10*3/uL Nucleated RBC % (auto) 0.0 (0.0-0.2) /100WBC Sodium 138 (135-145) mmol/L Potassium 3.7 (3.3-5.1) mmol/L Chloride 108 (96-108) mmol/L Carbon Dioxide 20 L (22-29) mmol/L Anion Gap 14 (12-20) BUN 11 (9-16) mg/dL Creatinine 0.76 (0.5-1.4) mg/dL Estim Creat Clear Calc 129.5 Estimated GFR > 60 Random Glucose 135 H (60-115) mg/dL Calcium 9.7 (8.4-10.2) mg/dL Urine Color Yellow Urine Appearance Clear Urine pH 5.5 (5.0-9.0) Ur Specific [place] 1.020 (1.005-1.025) Urine Protein Negative (Neg-Trace) mg/dL Urine Glucose (UA) Negative (Negative) mg/dL Urine Ketones Negative (Negative) mg/dL Urine Blood Negative (Negative) Urine Nitrite Negative (Negative) Ur Leukocyte Esterase Negative (Negative) COVID-19 (ELIZABETH) Negative (Negative) COVID-19 Clin Com See Note External Record Review External record reviewed: Inpatient record, Office record, Outpatient record, Prior outpatient labs and Prior outpatient radiology Prescription Management I considered prescription management with: Pain Medication Chronic Conditions Patient?s care impacted by: Other (fibromyalgia) Critical Care Time Critical Care Time Critical Care Time: No Discharge Plan Discharge Clinical Impression: Thoracic back pain Patient Disposition: Home, Self-Care Instructions: Back Pain (ED) Additional Instructions: Your lab workup and urine test today were unremarkable. Your pain is most likely muscular in nature. Recommend taking the prescribed anti-inflammatory medication and muscle relaxer Follow up with your doctor. If you develop new or worsening symptoms call 911 or come back to the ER for further evaluation. Prescriptions: New cyclobenzaprine 10 mg tablet 10 mg PO TID PRN (Reason: muscle spasm) Qty: 14 0RF lidocaine 5 % adhesive patch,medicated 1 patch topical DAILY Qty: 15 0RF Rx Instructions: leave on most painful area for up to 12 hrs naproxen 500 mg tablet 500 mg PO BID PRN (Reason: pain) Qty: 20 0RF No Action cholecalciferol (vitamin D3) 50 mcg (2,000 unit) capsule 50 mcg PO DAILY Qty: 90 3RF amlodipine 5 mg tablet 5 mg PO BID Qty: 180 3RF mirtazapine 15 mg tablet 15 mg PO BEDTIME lidocaine 5 % adhesive patch,medicated 1 patch topical DAILY Qty: 15 0RF Rx Instructions: leave on most painful area for up to 12 hrs ondansetron HCl 4 mg tablet 4 mg PO Q8H PRN (Reason: nausea and vomiting) 4 Days Qty: 7 0RF meclizine 12.5 mg tablet 12.5 mg PO TID PRN (Reason: dizziness) Qty: 14 0RF diazepam [Valium] 5 mg tablet 5 mg PO TID PRN (Reason: dizziness) Qty: 10 0RF meclizine 25 mg tablet 25 mg PO BID PRN (Reason: dizziness) Qty: 14 0RF ibuprofen 600 mg tablet 600 mg PO Q6H Qty: 20 0RF sucralfate [Carafate] 1 gram tablet 1 g PO Q6H PRN (Reason: indigestion) Qty: 20 0RF ondansetron 4 mg tablet,disintegrating 4 mg PO Q8H PRN (Reason: nausea and vomiting) Qty: 20 0RF sertraline 100 mg tablet 100 mg PO DAILY methylphenidate HCl [Concerta] 18 mg tablet extended release 24hr 18 mg PO QAM Citrucel 500 mg tablet 500 mg PO DAILY Qty: 90 2RF Rx Instructions: take it with full glass of water pantoprazole 40 mg tablet,delayed release (DR/EC) 40 mg PO DAILY@0630 Qty: 90 2RF sucralfate 1 gram tablet 1 g PO BID Qty: 180 2RF sennosides [senna] 8.6 mg tablet 17.2 mg PO BEDTIME Qty: 60 3RF Referrals: Gauri Samano MD [Primary Care Provider] - Stand Alone Forms: Work/School Release
[2023-07-25 09:22] LABS: MANUAL DIFF FLAG NO
[2023-07-25 09:27] LABS: Appearance Urine Clear; Basophils Percent Auto 0.4 % (0-2); Color Urine Yellow; Eosinophils Absolute Auto 0.1 X10*3/uL (0.0-0.4); Eosinophils Percent Auto 0.7 % (0-4); Glucose Urine UA Negative (Negative); Hematocrit 41.4 % (37.0-47.0); Hemoglobin 13.8 g/dl (12.0-16.0); Imm Gran Abs Auto 0.02 X10*3/uL (0.00-0.03); Imm Gran Pct Auto 0.3 % (0.0-0.4); Leukocyte Esterase Urine Negative (Negative); Lymphocytes Percent Auto 28.4 % (20-40); Mean Corpuscular HGB Conc 33.3 g/dl (31.0-35.0); Mean Corpuscular Hemoglobin 26.9 pg (27.0-33.0); Mean Corpuscular Volume 80.7 fL (80.0-98.0); Mean Platelet Volume 9.3 fL (9.4-12.3); Monocytes Absolute Auto 0.3 X10*3/uL (0.1-1.2); Monocytes Percent Auto 4.4 % (2-11); Neutrophils Absolute Auto 4.6 x10*3/uL (2.0-8.3); Neutrophils Percent Auto 65.8 % (45-73); Nitrite Urine Negative (Negative); PH 5.5 (5.0-9.0); Platelet Count 314 X10*3/uL (160-400); Red Blood Count 5.13 X10*6/uL (4.20-5.50); Red Cell Distribution Width 13.2 % (11.0-16.0); Urine Blood Negative (Negative); Urine Ketones Negative (Negative); Urine Protein Negative (Neg-Trace)
[2023-07-25 09:42] LABS: Anion Gap 14 (12-20); Blood Urea Nitrogen 11 mg/dL (9-16); Calcium 9.7 mg/dL (8.4-10.2); Carbon Dioxide 20 mmol/L (22-29); Chloride 108 mmol/L (96-108); Creatinine Clr Calc Pharmacy 129.5; Estimated Glomerular Filt Rate > 60; Glucose Random 135 mg/dL (60-115); Potassium 3.7 mmol/L (3.3-5.1); Sodium 138 mmol/L (135-145)
[2023-07-25 09:45] LABS: COVID-19 Test Negative (Negative); IDNOW Serial# 55D5AD1C
== END 2023-07-25 10:40 | disposition home or self-care (01) ==
PROVIDERS: Physician Assistant; Emergency Provider Emergency Medicine; PCP Internal Medicine
DX: M54.6 Pain in thoracic spine (principal); Z11.52 Encounter for screening for COVID-19; Z20.822 Contact with and (suspected) exposure to COVID-19; Z79.899 Other long term (current) drug therapy
CPT/HCPCS: 80048; 81003; 85025; 87635; 99282; 99283

== ENCOUNTER 2023-08-04 11:37 | Outpatient (AMB) | payer OTHER, SELFPAY ==
[2023-08-04 13:52] VITALS: BP 132/98; PULSE 97; TEMP 37; O2SAT 98; BMI 42.8
--- NOTE | 2023-08-04 13:52 | AM.OFFWIN_ITS ---
Intake Vital Signs 08/04/23 13:52 Height 5 ft 3 in Weight 241 lb 8 oz BMI 42.8 BP 132/98 H Blood Pressure Location Lt brachial Position Sitting Pulse 97 Pulse Source Pulse Oximeter Temp 98.6 F Temp Source Oral Pulse Oximetry (%) 98 Oxygen Delivery Method Room Air Intake Visit Reasons: swollen throat & Bi ear pain-Subaru christopher Intake Note: Pt presents to the office today for c/o swollen thoroat and bilateral ear pain. Pt states she was diagnosed with RSV on 08/02/23. Pt states both ears hurt and feel blocked for the past few weeks but has recently gotten worse. Patient Tobacco Use Status: Never used Tobacco Allergies [place] And Derivatives [CITRUS] Allergy (Intermediate, Verified 08/04/23 13:57) hives shellfish derived [SHELLFISH DERIVED] Allergy (Intermediate, Verified 08/04/23 13:57) HIVES SWOLLEN FACE SEAFOOD Allergy (Severe, Uncoded 08/04/23 13:57) ANGIOEDEMA HPI swollen throat & Bi ear pain-[employer]aru christopher HPI Details Patient is a 27-year-old female in today for a sick visit. Patient arrives with a chief complaint of bilateral ear pain, headache, cough, sore throat and subjective fever x2 weeks. Patient was last seen at [facility] 3 days prior to appointment where he tested positive for RSV and was instructed to take Motrin p.r.n. Patient states that over the past 3 days symptoms have gotten progressivly worse, especially the ear pain. [facility] Medical History Sessile serrated polyp of colon Family history of systemic lupus erythematosus Polyarthralgia Depression Essential hypertension Impaired fasting glucose Mid back pain on left side Insomnia Vitamin D deficiency Gastric ulcer Esophagitis Heartburn Lumbago with sciatica, left side Blurred vision, bilateral Obesity (BMI 30-39.9) Surgical History Hx of esophagogastroduodenoscopy Hx of colonoscopy Family History Father History of renal dialysis Chronic kidney disease (CKD) Substance use disorder Mental health disorder Mother Substance use disorder Mental health disorder Brother Mental health disorder Brother Mental health disorder Brother Mental health disorder Brother Mental health disorder Sister Mental health disorder Sister Mental health disorder Paternal Aunt Crohn's disease Social History (Updated 08/04/23 @ 13:58 by Brooke Mora MA) Household Members: Family and Other Household Members Other:: Aunt Housing: Apartment Are you a primary assurance services manager health care to a significant other at home: No Do you presently have visiting nurse or other home services: No Alcohol intake: never Patient Tobacco Use Status: Never used Tobacco e-Cigarette/Vaping Use: Former Use Second Hand Smoke Exposure: Yes Advance Directives Date on File: 08/26/22 service: No Current occupational status: employed 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8 Const General: cooperative and no acute distress Orientation/consciousness: patient oriented x3 Limitations: no limitations HEENT Head: Yes normal to inspection and Yes normocephalic Ears: TM abnormal erythematous on the right General nose exam: Nasal discharge present clear Eyes General: appearance normal, both eyes and all related structures Neck Neck: Yes normal visual inspection and Yes no lymphadenopathy Resp Effort & Inspection: normal respiratory effort and Actively coughing Auscultation: diminished lung sounds Cardio Jugular venous distension: no JVD Rate: regular rate Rhythm: regular rhythm Neuro General: patient oriented x3 Results AMB Rapid Strep AMB Rapid Strep Negative Last Edit by Brooke Mora MA on 08/04/23 14:19 Results Reviewed Results Reviewed: Laboratory Last Values Strep Scn [facility] Negative 08/04/23 14:01 Assessment & Plan Assessment & Plan (1) Otitis media: Code(s): H66.90 - Otitis media, unspecified, unspecified ear Qualifiers: Otitis media type: unspecified Laterality: right Qualified Code(s): H66.91 - Otitis media, unspecified, right ear Plan: Patient will be given Augmentin 875 mg to be taken every 12 hours for 5 days. Drink plenty of fluids. continue to take ibuprofen and Tylenol as needed for pain. (2) Chest tightness: Code(s): R07.89 - Other chest pain Plan: patient will be given an albuterol inhaler to be used every 6 hours as needed for cough and chest tightness. patient educated that side effect of medication may cause tachycardia. Orders: Orders AMB Rapid Strep Screen Today Z13.9 - Encounter for screening, unspecified Sky Painter MD SARS-CoV2/FLU/RSV Today R09.89 - Other specified symptoms and signs involving th e circulatory and respiratory systems MAGGIE Velázquez Medications: New amoxicillin-pot clavulanate 875-125 mg 1 tab PO Q12H 10 tabs 0RF MAGGIE Velázquez albuterol sulfate 90 mcg/actuation 2 puffs inhalation Q6H PRN 6.7 grams 0RF shortness of breath or wheezing MAGGIE Velázquez Coding Level of Care Code Est Pt Level 3 (32383) Diagnoses Right otitis media, unspecified otitis media type H66.91 Otitis media type: unspecified Laterality: right Chest tightness R07.89 Time Spent (min) 20
== END 2023-08-04 14:40 | disposition home or self-care (01) ==
PROVIDERS: PCP Internal Medicine; Visit Provider Nurse Practitioner Primary Care
DX: H66.91 Otitis media, unspecified, right ear (principal); R07.89 Other chest pain
CPT/HCPCS: 87880; 99213

== ENCOUNTER 2023-08-04 14:22 | Outpatient (REF) | payer OTHER, SELFPAY ==
[2023-08-04 17:50] LABS: Influenza A PCR NEGATIVE (Negative); Influenza B PCR NEGATIVE (Negative); Resp Syncy Virus RNA Qual PCR POSITIVE (Negative); SARS COV2 PCR INHOUSE NEGATIVE (Negative)
== END 2023-08-04 14:23 | disposition home or self-care (01) ==
LOC: HO.LAB 14:22
PROVIDERS: Visit Provider Nurse Practitioner Primary Care
DX: R09.89 Other specified symptoms and signs involving the circulatory and respiratory systems (principal); Z11.52 Encounter for screening for COVID-19
CPT/HCPCS: 0241U

== ENCOUNTER 2023-08-18 13:00 | Outpatient (AMB) | payer OTHER, SELFPAY ==
--- NOTE | 2023-08-18 13:07 | A.OFFVIS_ITS ---
Intake Vital Signs 08/18/23 13:10 Height 5 ft 3 in Weight 242 lb BMI 42.9 BP 153/110 H Blood Pressure Location Rt brachial Position Sitting Pulse 101 H Intake Visit Reasons: 3 month follow up Intake Note: Patient presents to in office visit today in 3 months follow up of abdominal pain. CC: Pt c/o epigastric pain, bloating, diarrhea, rectal discharge, and nausea. Denies any other GI issues today. 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 Discussed with patient avoiding dietary triggers discuss avoiding eating late at night. Postprandial epigastric pain Postprandial epigastric discomfort. Patient will try to work on changing his diet. Will discuss with his psychologist about trying to switch to a different medication to help him get some rest. Patient reports that when he was taking Reglan he felt worse and that is when he started vomiting. Will check transglutaminase, RAST allergen Postprandial diarrhea Postprandial loose stools most likely related to the food the patient is eating. Low FODMAP diet discussed with patient again. Patient will try to do elimination diet to see if he will be able to control his symptoms. Will check thyroid study, vitamin-D, B12 and folate. I will see patient in 3 months, sooner on as needed basis. Patient is agreeable to this plan and verbalizes understanding of instructions. He was given the opportunity to ask questions and all questions answered. ? Thank you for allowing me to participate in his care Plan Orders Orders Transglutaminase Ab IgG Today R10.9 - Unspecified abdominal pain Transglutaminase IgA Today R10.9 - Unspecified abdominal pain Rast Allergen Today K21.9 - Gastro-esophageal reflux disease without esophagitis TSH reflex Free T4 Today K59.00 - Constipation, unspecified Vitamin B12 and Folate Today R19.7 - Diarrhea, unspecified Vitamin D 25-OH (D2 and D3) Today E55.9 - Vitamin D deficiency, unspecified Medications Discontinued ondansetron Discontinued Reason: Duplicate 4 mg PO Q6H PRN 10 tabs 0RF nausea and vomiting metoclopramide HCl (Reglan) Discontinued Reason: Patient no longer taking 10 mg PO Q6H PRN 14 tabs 0RF nausea and vomiting TODAY'S VISIT: Patient is here today for follow-up and to discuss lab results. Patient had low vitamin-D level and was placed on replacement. He reports that he ran out of refills. RAST allergy in test show sensitivity to dust mites. Patient had normal transglutaminase, normal thyroid study. Recently patient in the ER with respiratory symptoms and chest discomfort was diagnosed with RSV, no COVID or flu. Patient reports to be feeling significantly better after taking pantoprazole in the morning and sucralfate at bedtime. Patient reports that he is taking senna to help her move his bowels. Patient denies melena, hematochezia, unintentional weight loss or ribbon like stools. Patient reports that he takes fiber supplements as well. He gain more weight. Has not been taking testosterone for over a year now. Testosterone was given to him at [facility] in [place]. He has not followed up with them yet. Patient reports occasional nausea about once a week. Denies any vomiting. Reports occasional abdominal bloating and occasional postprandial dyspepsia depending on what he eats. [facility] Medical History Sessile serrated polyp of colon Family history of systemic lupus erythematosus Polyarthralgia Depression Essential hypertension Impaired fasting glucose Mid back pain on left side Insomnia Vitamin D deficiency Gastric ulcer Esophagitis Heartburn Lumbago with sciatica, left side Blurred vision, bilateral Obesity (BMI 30-39.9) Surgical History Hx of esophagogastroduodenoscopy Hx of colonoscopy Family History Father History of renal dialysis Chronic kidney disease (CKD) Substance use disorder Mental health disorder Mother Substance use disorder Mental health disorder Brother Mental health disorder Brother Mental health disorder Brother Mental health disorder Brother Mental health disorder Sister Mental health disorder Sister Mental health disorder Paternal Aunt Crohn's disease Social History Household Members: Family and Other Household Members Other:: Aunt Housing: Apartment Are you a primary care transitions nurse to a significant other at home: No Do you presently have visiting nurse or other home services: No Alcohol intake: never Patient Tobacco Use Status: Never used Tobacco e-Cigarette/Vaping Use: Former Use Second Hand Smoke Exposure: Yes Advance Directives Date on File: 08/26/22 service: No Current occupational status: employed 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 [employer] Sexual orientation: Lesbian/Lomas/Homosexual Cognitive needs: No Hearing needs: No Vision needs: No Female Reproductive History Menstrual Age of Menarche: 13 Review of Systems Const Denies weight gain and Denies weight loss ENT Reports no additional complaints, Denies dysphagia and Denies odynophagia Card Reports no additional complaints Resp Reports no additional complaints GI Reports abdominal pain, Denies belching, Denies melena, Reports bloating, Denies change in bowel habits, Reports constipation, Denies dysphagia, Denies excessive flatus, Denies dyspepsia, Reports heartburn, Denies diarrhea, Reports loose stools, Reports nausea, Denies odynophagia and Denies vomiting Reports no additional complaints Musc Reports no additional complaints Neuro Reports no additional complaints Psych Reports no additional complaints Endo Reports no additional complaints Physical Exam Vital Signs: Last Vital Signs Pulse 101 H 08/18/23 13:10 BP 153/110 H 08/18/23 13:10 BMI result Body Mass Index 42.9 Const General: healthy appearing, no acute distress and well developed Nutritional Appearance: obese Orientation/consciousness: patient oriented x3 HEENT Head: Yes normal to inspection, Yes normocephalic and Yes atraumatic Face and sinus: Yes normal facial exam Mouth: Normal oral and palatal mucosa present Throat: Yes posterior oropharynx normal, Yes tonsils normal and Yes uvula midline Eyes General: appearance normal, both eyes and all related structures Neck Neck: Yes normal visual inspection, Yes full ROM and Yes trachea midline Thyroid: Thyroid normal Resp Effort & Inspection: normal respiratory effort, able to speak in complete sentences, no tracheal deviation and symmetric chest movement Auscultation: clear to auscultation bilaterally Cardio Rate: regular rate Heart sounds: S1 normal heart sound present and S2 normal heart sound present GI Inspection: Yes normal to inspection, No distended and Yes obesity Palpation (GI): Soft to palpation, not firm, nontender and No hepatosplenomegaly present Auscultation: normal bowel sounds General: Yes no CVA tenderness Back/Spine/Pelvis Back: no CVA tenderness Skin General skin exam: elasticity normal, turgor normal and dry skin Neuro General: patient oriented x3 Psych Appearance: grossly normal Mental Status: mental status grossly normal Results Reviewed Results Reviewed: Laboratory Tests 06/02/23 08/04/23 15:17 11:37 Vitamin B12 300 25-OH Vitamin D Total 15 L Folate 11.4 TSH 1.64 Tiss Transglutamin IgG <1.0 Tiss Transglutamin IgA <1.0 RSV RNA Qual (PCR) POSITIVE A Assessment & Plan Assessment & Plan (1) Heartburn: Code(s): R12 - Heartburn (2) Postprandial epigastric pain: Code(s): R10.13 - Epigastric pain (3) Postprandial diarrhea: Code(s): K52.9 - Noninfective gastroenteritis and colitis, unspecified Plan Continue taking Citrucel daily. Patient may increase to twice a day if needed. Patient will benefit to be attrition as to help with weight loss. Continue taking pantoprazole in the morning and sucralfate at bedtime. Avoid dietary triggers and late night snacking. Staying upright for minimal 3 hours after meals discussed with patient. Patient does report occasional postprandial abdominal pain in the right upper and left upper quadrant. Will send patient for abdominal ultrasound. Patient was encouraged to avoid NSAIDs. I will see him in 6 months, sooner on as needed basis. He is agreeable to this plan and verbalizes understanding of instructions. He was given the opportunity to ask questions and all questions answered. Thank you for allowing me to participate in his care Orders: Orders US abdomen complete Today R10.9 - Unspecified abdominal pain Referrals Senior Android Developer Nutrition Referral E66.01 - Morbid (severe) obesity due to excess calories Medications: Refilled sennosides (senna) 17.2 mg (2 x 8.6 mg) PO BEDTIME 60 tabs 3RF constipation methylcellulose (laxative) (Citrucel) take it with full glass of water 500 mg PO DAILY 90 tabs 2RF K59.00 - Constipation, unspecified pantoprazole 40 mg PO DAILY@0630 90 tabs 2RF ondansetron HCl 4 mg PO Q8H 4 days PRN 7 tabs 0RF nausea and vomiting Discontinued ibuprofen Discontinued Reason: Patient Completed Course 600 mg PO Q6H 20 tabs 0RF pain meclizine Discontinued Reason: Patient Completed Course 12.5 mg PO TID PRN 14 tabs 0RF dizziness naproxen Discontinued Reason: Patient Completed Course 500 mg PO BID PRN 20 tabs 0RF pain cyclobenzaprine Discontinued Reason: Patient Completed Course 10 mg PO TID PRN 14 tabs 0RF muscle spasm Coding Level of Care Code Est Pt Level 3 (75351) Diagnoses Heartburn R12 Postprandial epigastric pain R10.13 Postprandial diarrhea K52.9 Time Spent (min) 30 Comment 20 minutes spent with patient and additional 10 minutes spent reviewing his records
[2023-08-18 13:10] VITALS: BP 153/110; PULSE 101; BMI 42.9
== END 2023-08-18 13:44 | disposition home or self-care (01) ==
PROVIDERS: PCP Internal Medicine; Visit Provider Nurse Practitioner Family
DX: K52.9 Noninfective gastroenteritis and colitis, unspecified (principal); R10.13 Epigastric pain
CPT/HCPCS: 99213

== ENCOUNTER → 2023-08-18 13:00 | Outpatient (BNVA) | payer OTHER, SELFPAY | PROVIDERS: PCP Internal Medicine; Visit Provider Nurse Practitioner Family | DX: K52.9 Noninfective gastroenteritis and colitis, unspecified (principal); R12 Heartburn; R10.13 Epigastric pain | CPT/HCPCS: 99212 ==

== ENCOUNTER 2023-09-09 10:00 | Outpatient (REF) | payer OTHER, SELFPAY ==
--- NOTE | ~2023-09-09 | US_ITS ---
EXAMINATION: US ABDOMEN COMPLETE CLINICAL INFORMATION: Unspecified abdominal pain. COMPARISON: CT abdomen and pelvis 05/23/2023. Renal ultrasound 10/16/2022. Ultrasound abdomen complete 04/19/2021. TECHNIQUE: Real-time imaging of the abdominal viscera. Technically difficult study secondary to body habitus. FINDINGS: PANCREAS: Limited visualization. ABDOMINAL AORTA: The proximal, mid, and distal segments are normal in caliber. INFERIOR VENA CAVA: Visualized portions are normal. LIVER: The liver is normal in size. The liver contour is normal. There is diffuse increased liver parenchymal echogenicity, consistent with hepatic steatosis. No focal hepatic lesion. There is no intrahepatic biliary duct dilatation seen. GALLBLADDER: The gallbladder is physiologically distended without evidence of stones, sludge, polyps, wall thickening or pericholecystic fluid. COMMON BILE DUCT: Normal in caliber measuring 0.2 cm in diameter. RIGHT KIDNEY: No hydronephrosis. No renal calculi or focal parenchymal lesions. The kidney measures 10.4 cm in maximum dimension. LEFT KIDNEY: No hydronephrosis. No renal calculi or focal parenchymal lesions. The kidney measures 9.8 cm in maximum dimension. SPLEEN: The spleen measures 12.2 cm in maximum dimension. FREE FLUID: None. US/US abdomen complete IMPRESSION: Hepatic steatosis.
== END 2023-09-09 10:01 | disposition home or self-care (01) ==
LOC: HO.HMGCX 10:00
PROVIDERS: PCP Internal Medicine; Visit Provider Nurse Practitioner Family
DX: R10.9 Unspecified abdominal pain (principal)
CPT/HCPCS: 76700

== ENCOUNTER 2023-09-18 09:30 | Outpatient (AMB) | payer OTHER, SELFPAY ==
--- NOTE | 2023-09-18 09:34 | MHC.PC.OV ---
Vital Signs 09/18/23 09:37 Height 5 ft 3 in Weight 245 lb 2 oz BMI 43.4 BP 120/82 Blood Pressure Location Lt brachial Position Sitting Pulse 86 Pulse Source Pulse Oximeter Pulse Oximetry (%) 100 Oxygen Delivery Method Room Air Intake Visit Reasons: PE Intake Note: Pt is here for Annual PE Is last menstrual period known: Yes Last menstrual period: 09/04/23 Allergies [place] And Derivatives [CITRUS] Allergy (Intermediate, Verified 09/18/23 10:06) hives shellfish derived [SHELLFISH DERIVED] Allergy (Intermediate, Verified 09/18/23 10:06) HIVES SWOLLEN FACE No Known Drug Allergies Allergy (Unknown, Verified 09/18/23 10:06) none SEAFOOD Allergy (Severe, Uncoded 09/18/23 10:06) ANGIOEDEMA Medication List - Last Reconciled 09/18/23 by Gauri Samano MD albuterol sulfate 90 mcg/actuation 2 puffs inhalation Q6H PRN amlodipine 5 mg PO BID cholecalciferol (vitamin D3) 50 mcg PO DAILY lidocaine 5% 1 patch topical DAILY methylcellulose (laxative) (Citrucel) 500 mg PO DAILY methylphenidate HCl ER (Concerta) 18 mg PO QAM mirtazapine 15 mg PO BEDTIME ondansetron HCl 4 mg PO Q8H PRN 4 days pantoprazole 40 mg PO DAILY@0630 sennosides (senna) 17.2 mg (2 x 8.6 mg) PO BEDTIME sertraline 100 mg PO DAILY sertraline 25 mg PO DAILY sucralfate 1 g PO BID Tobacco use date assessed: 09/18/23 Dental Screening Dental Screen Date: 09/18/23 Did you have a dental visit in the last 12 months?: Yes Did you have a dental problem in the last 6 months where you did not have access to dental care?: No Was dental information given to patient?: Patient has dentist HPI PE HPI Details 27-year-old lady with hypertension, fibromyalgia, morbid obesity, polyarthralgia, has depression, and impaired fasting glucose, here today for a physical exam . She sees [facility] for her routine Pap and pelvic exam, last Pap was done in 2020 with normal findings. Blood pressure stable controlled on current medication. Patient states that she has had her COVID booster at [facility] and wants to get her flu shot today. She currently sees nurse psychiatrist for depression anxiety and for ADD, currently stable and controlled on present medications. She has heartburn and postprandial epigastric pain, currently followed by GI at [place], and placed on pantoprazole 40 mg daily. She has also been prescribed senna for occasional constipation, which she states has been helping. [facility] Medical History (Updated 09/18/23 @ 10:41 by Gauri Samano MD) Sessile serrated polyp of colon Family history of systemic lupus erythematosus Polyarthralgia Depression Essential hypertension Impaired fasting glucose Mid back pain on left side Insomnia Vitamin D deficiency Gastric ulcer Esophagitis Heartburn Lumbago with sciatica, left side Blurred vision, bilateral Obesity (BMI 30-39.9) Surgical History Hx of esophagogastroduodenoscopy Hx of colonoscopy Family History Father History of renal dialysis Chronic kidney disease (CKD) Substance use disorder Mental health disorder Mother Substance use disorder Mental health disorder Brother Mental health disorder Brother Mental health disorder Brother Mental health disorder Brother Mental health disorder Sister Mental health disorder Sister Mental health disorder Paternal Aunt Crohn's disease Social History Household Members: Family and Other Household Members Other:: Aunt Housing: Apartment Are you a primary dialysis patient care technician to a significant other at home: No Do you presently have visiting nurse or other home services: No Alcohol intake: never Patient Tobacco Use Status: Never used Tobacco e-Cigarette/Vaping Use: Former Use Second Hand Smoke Exposure: Yes Advance Directives Date on File: 08/26/22 service: No Current occupational status: employed Current occupation: [employer] Sexual orientation: Lesbian/Lomas/Homosexual Cognitive needs: No Hearing needs: No Vision needs: No Female Reproductive History Menstrual Age of Menarche: 13 Date of last menstrual period: 09/04/23 Questionnaire PHQ-9 Over the last 2 weeks, how often have you been bothered by any of the following problems? 1. Little interest or pleasure in doing things: several days 2. Feeling down, depressed, or hopeless: several days 3. Trouble falling or staying asleep, or sleeping too much: several days 4. Feeling tired or having little energy: more than half the days 5. Poor appetite or overeating: not at all 6. Feeling bad about yourself - or that you are a failure or have let yourself or your family down: several days 7. Trouble concentrating on things, such as reading the newspaper or watching television: several days 8. Moving or speaking so slowly that other people could have noticed. Or the opposite - being so fidgety or restless that you have been moving around a lot more than usual: not at all 9. Thoughts that you would be better off or of hurting yourself in some way: not at all Total score: 7 Depression Screening Interpretation: Positive Depression Screening Follow-up: Existing condition and In treatment (Currently sees an outside psychiatrist) Depression Screening Done: Yes 46116 - PHQ-9 Billing: Yes Source: Developed by Drs. Darin Botello, Paulette Harman, Johnson Lopez and colleagues, with an educational muna from [employer]. Thrive Questionnaire Date Thrive assessed: 08/28/22 AUDIT C Alcohol Use Questionnaire (AUDIT-C) 1. How often do you have a drink containing alcohol?: Never 3. How often do you have six or more drinks on one occasion?: Never Total Score: 0 ROYCE-7 AMB Questionnaire ROYCE-7 Date ROYCE - 7 assessed: 09/18/23 Feeling nervous, anxious, or on edge: 3 = Nearly every day Not being able to stop or control worryin = Nearly every day Worrying too much about different things: 3 = Nearly every day Trouble relaxin = Nearly every day Being so restless that it is hard to sit still: 3 = Nearly every day Becoming easily annoyed or irritable: 3 = Nearly every day Feeling afraid as if something awful might happen: 3 = Nearly every day Total ROYCE-7 score (0-4 normal; 5-9 mild; 10-14 moderate; 15-21 severe): 21 Source: Developed by Drs. Darin Botello, Johnson Oconnor and colleagues, with an educational muan from [employer]. ROYCE-7 Assessment Billing ROYCE-7 Assessment Tool: ROYCE-7 Assessment 27580 Review of Systems Const Denies weight gain and Denies weight loss Eyes Reports blurry vision (Goes to [facility]) ENT Reports no additional complaints, Denies dysphagia and Denies odynophagia Card Reports no additional complaints Resp Reports no additional complaints GI Reports abdominal pain, Denies belching, Denies melena, Reports bloating, Denies change in bowel habits, Reports constipation, Denies dysphagia, Denies excessive flatus, Denies dyspepsia, Reports heartburn, Denies diarrhea, Reports loose stools, Reports nausea, Denies odynophagia and Denies vomiting Details: Goes to [facility] for her routine Pap and pelvic exam Reports no additional complaints Musc Reports no additional complaints Neuro Reports no additional complaints Psych Reports no additional complaints Endo Reports no additional complaints Vinh/Lymph Reports no additional complaints Aller/Immun Reports no additional complaints Physical exam (Primary Care) Vital Signs: Last Vital Signs Pulse 86 09/18/23 09:37 BP 120/82 09/18/23 09:37 Pulse Ox 100 09/18/23 09:37 Oxygen Delivery Method Room Air 09/18/23 09:37 BMI result Body Mass Index 43.4 BMI Assessment/Plan discussion: High BMI High, discussed plan: lifestyle, weight reduction, dietary and physical activity Tobacco/Smoking Status: Tobacco use Status Tobacco use date assessed 09/18/23 09/18/23 09:46 Patient Tobacco Use Status Never used Tobacco 09/18/23 09:34 e-Cigarette/Vaping Use Former Use 09/18/23 09:34 Depression Screening Interpretation: Positive Depression Screening Follow-up: Existing condition and In treatment (Currently sees an outside psychiatrist) Thrive Assessment: Date of Thrive Assessment Date Thrive assessed 08/28/22 09/18/23 09:34 Const Other: Alert oriented x3, morbidly obese, no acute cardiorespiratory distress noted normal gait Orientation/consciousness: patient oriented x3 HENMT Ears: external ears normal, TM's normal bilaterally and EAC's normal General nose exam: Normal external nose present Face and sinus: Yes face symmetric Mouth: Normal oral and palatal mucosa present, oropharynx normal and moist mucous membranes Eyes General: appearance normal, both eyes and all related structures Neck Neck: Yes full ROM, Yes no lymphadenopathy and Yes supple Thyroid: Thyroid normal Lymphatic: no lymphadenopathy noted Chest Chest palpation & inspection: normal inspection of the chest Breast/axilla inspection: normal inspection of the breasts Breast/axilla palpation: normal palpation of the breasts and normal palpation of the axillae Resp Effort & Inspection: normal respiratory effort and able to speak in complete sentences Auscultation: clear to auscultation bilaterally Cardio Rate: regular rate Rhythm: regular rhythm Heart sounds: S1 normal heart sound present and S2 normal heart sound present GI Inspection: Yes obesity Palpation (GI): Soft to palpation, nontender, no guarding and no masses Auscultation: normal bowel sounds General: Yes no CVA tenderness and Yes deferred Back/Spine/Pelvis Back: no CVA tenderness and No back tenderness Thoracic/Lumbar Spine: straight leg raise negative bilaterally Skin General skin exam: no rashes or lesions noted Neuro General: patient oriented x3, gait normal, tone normal, moves all extremities, Normal light touch and pain sensation, no focal motor deficits and CN's II-XI intact bilaterally Cognition (Neuro): normal cognition Gait exam (Neuro): Normal gait present Extrem General: Yes normal to inspection, Yes full ROM, Yes no pedal edema and Yes normal gait Psych Appearance: grossly normal and well kempt Mental Status: mental status grossly normal Speech and movement: Normal speech and movement present Affect: normal affect Attitude: cooperative Thought process: Normal thought process present Thought content: Normal thought content present Office Procedures Flu Questionnaire Does the patient have a severe egg allergy?: No Does the patient have severe life threatening allergies?: No Does the patient have a fever or illness today?: No Has the patient ever had Guillain-[place] Syndrome?: No Has the patient ever had any past reaction to a flu shot?: No Immunizations flu vacc [id number] 6mos up(PF) 60 mcg(15 mcgx4)/0.5 mL IM syringe Performing Provider: Gauri Samano MD Performing Location: [facility] Administered by: Eneida Benjamin CMA on 09/18/23 10:07 Dose Route Admin Location Dispensed Lot Number Expiration Date NDC Account Officer 0.5 mL IM Left Deltoid 0.5 mL [id number] 04/04/24 40301-671-05 [employer] VIS Given Date VIS Provided VIS Publication Date 09/18/23 Single Vaccine 21 Eligibility Eligibility Date Funding Source Not [facility] Eligible 09/18/23 Private Results Reviewed Results Reviewed: Laboratory Tests 07/25/23 09:07 WBC 7.0 Hgb 13.8 Hct 41.4 RDW 13.2 Plt Count 314 Sodium 138 ENTERED: 07/25/23-[address] [facility] [address]: Gauri Samano MD ORDERED: BMP Test Result Flag Reference Site Sodium 138 135-145 mmol/L Potassium 3.7 3.3-5.1 mmol/L CL 108 96-108 mmol/L CO2 20 L 22-29 mmol/L Gap 14 12-20 BUN 11 9-16 mg/dL Creat 0.76 0.5-1.4 mg/dL Estimated CrCl 129.5 Provided height and weight: 160.02 cm, 104.326 kg. eGFR (calculated from the MDRD study equation) and eCrCl (calculated from the Cockcroft-Gault equation) are based on different parameters and may not yield comparable results. If eCrCl result is absurd, please check patient's height/weight. EGFR > 60 NOTE: For -[place] individuals, multiply the result by 1.210. Chronic Kidney Disease: Estimated GFR < 60 mL/min/1.73m2 Severe Kidney Disease: Estimated GFR < 15 mL/min/1.73m2 Glucose, Random 135 H 60-115 mg/dL CA 9.7 8.4-10.2 mg/dL Assessment and Plan Assessment & Plan (1) Essential hypertension: Code(s): I10 - Essential (primary) hypertension Plan: Blood pressure stable and controlled on amlodipine, will continue, adherence to low-salt diet again stressed, and getting regular axis (2) Impaired fasting glucose: Code(s): R73.01 - Impaired fasting glucose Plan: Your fasting blood sugars elevated above 100 mg/dL. Will repeat another fasting sugar check. Impaired glucose metabolism O2 at risk for developing diabetes mellitus type 2, as well as heart attack and stroke later on. Lifestyle changes at just weight loss, healthy eating habits, and regular exercise are important, and can prevent the progression to diabetes (3) Vitamin D deficiency: Code(s): E55.9 - Vitamin D deficiency, unspecified Plan: I previous vitamin-D level was very low, currently on vitamin-D 3 2000 units daily, will recheck vitamin-D level (4) Depression: Code(s): F32.A - Depression, unspecified Qualifiers: Depression Type: major depressive disorder Major depression recurrence: recurrent Active/Remission status: currently active Major depression episode severity: moderate Qualified Code(s): F33.1 - Major depressive disorder, recurrent, moderate Plan: Currently followed by psychiatry (5) Morbid obesity: Code(s): E66.01 - Morbid (severe) obesity due to excess calories Plan: Discussed need to increase activity and wt reduction. Recommended focusing on improving your health instead of dieting. : Eat Mediterranean diet, limit foods high in fat, sugar, and calories, eat slowly, pay attention to portion sizes, plan your meals ahead of time, start regular physical activity 150 minutes of moderate intensity exercise or 90 minutes/week of vigorous exercise and increase water intake. (6) Annual visit for general adult medical examination with abnormal findings: Code(s): Z00.01 - Encounter for general adult medical examination with abnormal findings Plan: Will check appropriate labs. Recommended dental visit every 6 months and regular eye exams, at least every 2 years, try calling my eye doctor for an appointment. Take adequate calcium in diet and vitamin-D 3 at 2000 IU per cap once a day, in addition to weight-bearing exercises to help maintain good muscle tone and weight control. Instructed to do self-breast exam, and recommended to get yearly mammogram, starting at age 40. She currently sees [facility] for her routine Pap and pelvic exam, last 1 done 2020, due next year. Already had her COVID booster [facility], advised to get a date of vaccination, and flu shot given today (7) Fibromyalgia, primary: Code(s): M79.7 - Fibromyalgia Plan: Advised to try massaging absorbing [place] [employer] trying to affected area Orders: Orders Influenza [id number] Immunization Today Z23 - Encounter for immunization Vitamin D 25-OH Total Today E55.9 - Vitamin D deficiency, unspecified, E66.01 - Morbid (severe) obesity due to excess calories, I10 - Essential (primary) hypertension, R73.01 - Impaired fasting glucose Vitamin B12 and Folate Today E55.9 - Vitamin D deficiency, unspecified, E66.01 - Morbid (severe) obesity due to excess calories, I10 - Essential (primary) hypertension, R73.01 - Impaired fasting glucose TSH reflex Free T4 Today E55.9 - Vitamin D deficiency, unspecified, E66.01 - Morbid (severe) obesity due to excess calories, I10 - Essential (primary) hypertension, R73.01 - Impaired fasting glucose Lipid Panel Today E55.9 - Vitamin D deficiency, unspecified, E66.01 - Morbid (severe) obesity due to excess calories, I10 - Essential (primary) hypertension, R73.01 - Impaired fasting glucose Basic Metabolic Panel Fasting Today E55.9 - Vitamin D deficiency, unspecified, E66.01 - Morbid (severe) obesity due to excess calories, I10 - Essential (primary) hypertension, R73.01 - Impaired fasting glucose Coding Level of Care Code Est Pt Prev Care 18-39y([id number]) Diagnoses Essential hypertension I10 Impaired fasting glucose R73.01 Vitamin D deficiency E55.9 Moderate episode of recurrent major depressive disorder F33.1 Depression Type: major depressive disorder Major depression recurrence: recurrent Active/Remission status: currently active Major depression episode severity: moderate Morbid obesity E66.01 Annual visit for general adult medical examination with abnormal findings Z00.01 Fibromyalgia, primary M79.7 Additional Codes ROYCE-7 Assessment Billing - ROYCE-7 Assessment Tool: ROYCE-7 Assessment [id number] ([id number])
[2023-09-18 09:37] VITALS: BP 120/82; PULSE 86; O2SAT 100; BMI 43.4
== END 2023-09-18 12:57 | disposition home or self-care (01) ==
PROVIDERS: PCP Internal Medicine; Visit Provider Internal Medicine
DX: Z00.01 Encounter for general adult medical examination with abnormal findings (principal); F33.1 Major depressive disorder, recurrent, moderate; E66.01 Morbid (severe) obesity due to excess calories; Z23 Encounter for immunization; Z68.41 Body mass index [BMI] 40.0-44.9, adult; I10 Essential (primary) hypertension; R73.01 Impaired fasting glucose; E55.9 Vitamin D deficiency, unspecified; M79.7 Fibromyalgia
CPT/HCPCS: 90471; 90686; 99395

== ENCOUNTER 2023-09-18 10:27 | Outpatient (REF) | payer OTHER, SELFPAY ==
[2023-09-18 14:01] LABS: Anion Gap 13 (12-20); Blood Urea Nitrogen 13 mg/dL (9-16); Calcium 9.5 mg/dL (8.4-10.2); Carbon Dioxide 24 mmol/L (22-29); Chloride 105 mmol/L (96-108); Cholesterol 155 mg/dL (<200); Estimated Glomerular Filt Rate > 60; Glucose Fasting 164 mg/dL (60-99); HDL Cholesterol 41 mg/dL (>40); LDL Cholesterol Calculated 91 mg/dL (<100); Potassium 3.8 mmol/L (3.3-5.1); Sodium 138 mmol/L (135-145); Triglycerides 115 mg/dL (<150)
[2023-09-18 14:04] LABS: TSH reflex Free T4 1.34 uIU/mL (0.32-4.0); Vitamin D 25-OH Total 29.1 ng/mL (>30)
[2023-09-18 14:18] LABS: Folate 9.4 ng/mL (> or = 4.0); Vitamin B12 294 pg/mL (200-900)
== END 2023-09-18 10:28 | disposition home or self-care (01) ==
LOC: HO.HMGCLDS 10:27
PROVIDERS: PCP Internal Medicine; Visit Provider Internal Medicine
DX: E66.01 Morbid (severe) obesity due to excess calories (principal); R73.01 Impaired fasting glucose; E55.9 Vitamin D deficiency, unspecified; I10 Essential (primary) hypertension
CPT/HCPCS: 36415; 80048; 80061; 82306; 82607; 82746; 84443

== ENCOUNTER 2023-09-25 09:17 | Outpatient (AMB) | payer OTHER, SELFPAY ==
[2023-09-25 09:24] VITALS: BP 120/82; PULSE 81; BMI 43.0
--- NOTE | 2023-09-25 09:24 | MHC.OFFVIS ---
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 Allergies [place] And Derivatives [CITRUS] Allergy (Intermediate, Verified 09/25/23 09:26) hives shellfish derived [SHELLFISH DERIVED] Allergy (Intermediate, Verified 09/25/23 09:26) HIVES SWOLLEN FACE No Known Drug Allergies Allergy (Unknown, Verified 09/25/23 09:26) none SEAFOOD Allergy (Severe, Uncoded 09/18/23 10:06) ANGIOEDEMA Medication List - Last Reconciled 09/25/23 by Abigail Fields, AUTO TECHNICIAN [employer]CH[employer]IC-C albuterol sulfate 90 mcg/actuation 2 puffs inhalation Q6H PRN amlodipine 5 mg PO BID cholecalciferol (vitamin D3) 50 mcg PO DAILY lidocaine 5% 1 patch topical DAILY methylcellulose (laxative) (Citrucel) 500 mg PO DAILY methylphenidate HCl ER (Concerta) 36 mg PO QAM mirtazapine 15 mg PO BEDTIME ondansetron HCl 4 mg PO Q8H PRN 4 days pantoprazole 40 mg PO DAILY@0630 sennosides (senna) 17.2 mg (2 x 8.6 mg) PO BEDTIME sertraline 100 mg PO DAILY sertraline 25 mg PO DAILY sucralfate 1 g PO BID HPI 6 mth f/up HPI Details Jw is a 27 yr who identifies as being male, with PMH of morbid obesity, impaired fasting glucose, obesity, HTN who presents for follow-up. Today he reports that he continues to have some vague chest discomfort, now in the right chest region. Occurring randomly and feels like an ache. Not clearly related to exertional activities. No shortness of breath, palpitations, presyncope, syncope, PND, orthopnea or edema. Good activity tolerance. Taking all meds as directed. Home blood pressures normal range. [facility] Medical History Sessile serrated polyp of colon Family history of systemic lupus erythematosus Polyarthralgia Depression Essential hypertension Impaired fasting glucose Mid back pain on left side Insomnia Vitamin D deficiency Gastric ulcer Esophagitis Heartburn Lumbago with sciatica, left side Blurred vision, bilateral Obesity (BMI 30-39.9) Surgical History Hx of esophagogastroduodenoscopy Hx of colonoscopy Family History Father History of renal dialysis Chronic kidney disease (CKD) Substance use disorder Mental health disorder Mother Substance use disorder Mental health disorder Brother Mental health disorder Brother Mental health disorder Brother Mental health disorder Brother Mental health disorder Sister Mental health disorder Sister Mental health disorder Paternal Aunt Crohn's disease Social History Household Members: Family and Other Household Members Other:: Aunt Housing: Apartment Are you a primary small animal caretaker to a significant other at home: No Do you presently have visiting nurse or other home services: No Alcohol intake: never Patient Tobacco Use Status: Never used Tobacco e-Cigarette/Vaping Use: Former Use Second Hand Smoke Exposure: Yes Advance Directives Date on File: 08/26/22 service: No Current occupational status: employed Current occupation: [employer] Sexual orientation: Lesbian/Lomas/Homosexual Cognitive needs: No Hearing needs: No Vision needs: No Female Reproductive History Menstrual Age of Menarche: 13 Review of Systems Const All systems reviewed & are unremarkable except as noted in HPI and below ENT Denies dizziness Card Reports chest pain, Denies chest pain at rest, Denies chest pain with activity, Denies rapid heart rate, Denies pedal edema, Denies edema, Denies leg edema, Denies lightheadedness, Denies palpitations, Denies dyspnea, Denies dyspnea on exertion and Denies orthopnea Resp Denies cough, Denies dyspnea and Denies dyspnea on exertion GI Denies hematochezia and Denies change in stool character Musc Denies abnormal gait, Denies limited range of motion, Denies muscle cramps, Denies muscle weakness, Denies numbness, Denies radiating pain into limb, Denies stiffness and Denies tingling Neuro Denies abnormal gait, Denies dizziness, Denies numbness and Denies tingling Endo Denies palpitations Physical Exam Vital Signs: Last Vital Signs Pulse 81 09/25/23 09:24 BP 120/82 09/25/23 09:24 BMI result Body Mass Index 43.0 Const General: cooperative, healthy appearing, comfortable and no acute distress Orientation/consciousness: patient oriented x3 Neck Neck: Yes normal visual inspection Resp Effort & Inspection: normal respiratory effort Auscultation: clear to auscultation bilaterally, no crackles, no rales, no rhonchi and no wheezes Cardio Jugular venous distension: no JVD Rate: regular rate Rhythm: regular rhythm Heart sounds: S1 normal heart sound present, S2 normal heart sound present, no murmurs and no rubs Neuro General: patient oriented x3 Extrem General: Yes normal to inspection, No no pedal edema and No calf tenderness Psych Appearance: grossly normal Mental Status: mental status grossly normal Speech and movement: Normal speech and movement present Assessment & Plan Assessment & Plan (1) Essential hypertension: Code(s): I10 - Essential (primary) hypertension Plan: Hypertensive episode with ER visit, hospital admission 08/23/2022. Blood pressure max 202/122. EKG with T-wave inversions, not new, thought to be hypertension related. No ACS. He was started on amlodipine and labetalol for blood pressure control. He states he was taken off hormonal therapy following that hospital admission. Outpatient echocardiogram done on 10/16/2021 shows normal study, EF 60-65%. Renal ultrasound done on 10/16/2021 was unremarkable, there is no direct comment regarding renal artery stenosis. A home sleep study done 10/01/2022 was normal. On follow up visit he was off his medications due to running out. Amlodipine was restarted then dose titrated up to 5 mg b.i.d. today he reports he has been doing well since his last visit in March. No issues with uncontrolled hypertension. He does have some atypical sounding discomfort in the right chest region. Blood pressure normal range at this visit 120/ 82. No leg edema noted. Continue on current med management. Reviewed low-salt diet, weight loss, activity as tolerated. Periodic home blood pressures. Recommend he stay off hormonal therapy which may have added to the level of uncontrolled hypertension previously seen. Cardiology follow-up in 1 year, sooner if needed. (2) Abnormal EKG: Code(s): R94.31 - Abnormal electrocardiogram [ECG] [EKG] Plan: EKG has been showing with T-wave inversions V4 through V6. Had ruled out for ACS during hospitalization last year. Initially thought to be related to uncontrolled hypertension. He does report some atypical sounding chest discomfort, random pressure in the right chest region, nonexertional. Echo normal. For completeness will complete a stress echocardiogram to ensure there is no ischemic findings. (3) Chest discomfort: Code(s): R07.89 - Other chest pain Plan: As above (4) Morbid obesity: Code(s): E66.01 - Morbid (severe) obesity due to excess calories Plan: As above Plan Time spent on chart review, documentation, interview and assessment Orders: Orders CA echo stress exercise Today R07.89 - Other chest pain, R94.31 - Abnormal electrocardiogram [ECG] [EKG] Coding Level of Care Code Est Pt Level 3 (61788) Diagnoses Essential hypertension I10 Abnormal EKG R94.31 Chest discomfort R07.89 Morbid obesity E66.01 Time Spent (min) 24
== END 2023-09-25 09:48 | disposition home or self-care (01) ==
PROVIDERS: PCP Internal Medicine; Visit Provider Nurse Practitioner Family
DX: I10 Essential (primary) hypertension (principal); R94.31 Abnormal electrocardiogram [ECG] [EKG]; R07.89 Other chest pain; E66.01 Morbid (severe) obesity due to excess calories
CPT/HCPCS: 99213

== ENCOUNTER → 2023-09-25 09:17 | Outpatient (BNVA) | payer OTHER, SELFPAY | PROVIDERS: PCP Internal Medicine; Visit Provider Nurse Practitioner Family | DX: R94.31 Abnormal electrocardiogram [ECG] [EKG] (principal); I10 Essential (primary) hypertension; R07.89 Other chest pain; E66.01 Morbid (severe) obesity due to excess calories; Z68.41 Body mass index [BMI] 40.0-44.9, adult | CPT/HCPCS: 99212 ==

== ENCOUNTER → 2023-10-17 11:07 | Outpatient (REF) | payer OTHER, SELFPAY ==
--- NOTE | 2023-10-17 11:12 | CA_ITS ---
Acquisition Time: 2023-10-17 11:11:49 Total Exercise Time: 00:07:00 Test Indications: ABN EKG Medications: SEE H Protocol: YASIR Max HR: 200 BPM 103% of Pred: 194 BPM Max BP: 158/084 mmHG Max Work Load: 8.5 METS Exercise stress test with exercise 7 min of Yasir protocol, achieving 103% MPHR, without anginal symptoms, without arrythmia, with normotensive response to exercise, with EKG showing baseline T wave abnormality, with artifact at near peak and peak exercise making assessment for ischemia difficult, with EKG at 30 sec recovery ( median) showing borderline ST depression lead III, with EKG at 52 sec recovery showing no ischemia. Echo images obtained by tech at rest and immediately post peak exercise. Definity contrast used. Test reviewed with Dr Jackson. Referred By: Abigail Fields Overread By: ABIGAIL FIELDS
== END ==
LOC: HO.CARD 11:07
PROVIDERS: PCP Internal Medicine; Visit Provider Nurse Practitioner Family
DX: R07.89 Other chest pain (principal); R94.31 Abnormal electrocardiogram [ECG] [EKG]
CPT/HCPCS: 93350; Q9957

== ENCOUNTER → 2023-10-17 11:12 | Outpatient (BNV) | payer OTHER, SELFPAY | PROVIDERS: PCP Internal Medicine; Visit Provider Nurse Practitioner Family | DX: R94.31 Abnormal electrocardiogram [ECG] [EKG] (principal) | CPT/HCPCS: 93016; 93018; 93350; 93352 ==

== ENCOUNTER 2023-12-10 08:41 | Emergency (ER) | payer OTHER, SELFPAY ==
[2023-12-10 09:13] VITALS: BP 155/85; PULSE 88; RESP 20; TEMP 36.8; O2SAT 98; BMI 43.3
[2023-12-10 09:17] LABS: IDNOW Serial# 6674DD1D; Strep A Nucleic Acid Negative (Negative)
--- NOTE | 2023-12-10 09:49 | ED.GENADULT ---
HPI - General Adult General Chief complaint: Upper Respiratory Symptoms Stated complaint: Sore throat, cough Time Seen by Provider: 12/10/23 09:38 Source: patient Mode of arrival: ambulatory Limitations: no limitations History of Present Illness HPI narrative: 28-year-old female presents with fatigue, malaise, myalgias, sore throat, cough productive of yellow/green sputum. Patient denies any sick contacts. Reports she just has not had any energy and she just feels tired. Denies chest pain, shortness breath, nausea, vomiting, abdominal pain, changes in urination, difficulty swallowing or speaking, headache, vision changes, dizziness Related Data Home Medications Medication Instructions Recorded Confirmed mirtazapine 15 mg tablet 15 mg PO BEDTIME 10/22/22 09/25/23 sertraline 100 mg tablet 100 mg PO DAILY 03/19/23 09/25/23 sertraline 25 mg tablet 25 mg PO DAILY 08/18/23 09/25/23 methylphenidate HCl 36 mg 36 mg PO QAM 09/25/23 09/25/23 tablet,extended release 24 hr (Concerta) Previous Rx's Medication Instructions Recorded sucralfate 1 gram tablet 1 g PO BID #180 tabs 04/29/23 cholecalciferol (vitamin D3) 50 50 mcg PO DAILY #90 caps 06/10/23 mcg (2,000 unit) capsule amlodipine 5 mg tablet 5 mg PO BID #180 tabs 07/03/23 lidocaine 5 % topical patch 1 patch topical DAILY #15 ea 07/25/23 albuterol sulfate 90 mcg/actuation 2 puff inhalation Q6H PRN 08/04/23 aerosol inhaler shortness of breath or wheezing #6.7 grams methylcellulose (laxative) 500 mg 500 mg PO DAILY #90 tabs 08/18/23 tablet (Citrucel) ondansetron HCl 4 mg tablet 4 mg PO Q8H PRN nausea and 08/18/23 vomiting 4 days #7 tabs pantoprazole 40 mg tablet,delayed 40 mg PO DAILY@0630 #90 tabs 08/18/23 release sennosides 8.6 mg tablet (senna) 17.2 mg (2 x 8.6 mg) PO BEDTIME 08/18/23 constipation #60 tabs Magic Mouthwash 5 ml PO TID #240 mL 12/10/23 Diphen/Lido/Antacid 1:1:1 240 mL suspension amoxicillin 875 mg-potassium 1 tab PO BID 10 days #20 tabs 12/10/23 clavulanate 125 mg tablet prednisone 20 mg tablet 40 mg (2 x 20 mg) PO DAILY 5 days 12/10/23 #10 tabs Allergies Allergy/AdvReac Type Severity Reaction Status Date / Time [place] And Derivatives Allergy Intermediate hives Verified 09/25/23 09:26 [CITRUS] shellfish derived Allergy Intermediate HIVES Verified 09/25/23 09:26 [SHELLFISH DERIVED] SWOLLEN FACE No Known Drug Allergies Allergy Unknown none Verified 09/25/23 09:26 SEAFOOD Allergy Severe ANGIOEDEMA Uncoded 09/18/23 10:06 Review of Systems Review of Systems: Yes all other systems are reviewed and are negative PMFSH Past Medical History Attestation statement: The following information was validated with the patient. Source: old records reviewed and nursing notes reviewed Medical History Sessile serrated polyp of colon Family history of systemic lupus erythematosus Polyarthralgia Depression Essential hypertension Impaired fasting glucose Mid back pain on left side Insomnia Vitamin D deficiency Gastric ulcer Esophagitis Heartburn Lumbago with sciatica, left side Blurred vision, bilateral Obesity (BMI 30-39.9) Surgical History Hx of esophagogastroduodenoscopy Hx of colonoscopy Family History Family History Father History of renal dialysis Chronic kidney disease (CKD) Substance use disorder Mental health disorder Mother Substance use disorder Mental health disorder Brother Mental health disorder Brother Mental health disorder Brother Mental health disorder Brother Mental health disorder Sister Mental health disorder Sister Mental health disorder Paternal Aunt Crohn's disease Social History Social History Household Members: Family and Other Household Members Other:: Aunt Housing: Apartment Are you a primary field care coordinator to a significant other at home: No Do you presently have visiting nurse or other home services: No Alcohol intake: never Patient Tobacco Use Status: Never used Tobacco e-Cigarette/Vaping Use: Former Use Second Hand Smoke Exposure: Yes Advance Directives: Yes Advance Directives on File: Yes Advance Directives Date on File: 08/26/22 service: No Current occupational status: employed Current occupation: [employer] Sexual orientation: Lesbian/Lomas/Homosexual Cognitive needs: No Hearing needs: No Vision needs: No Physical Exam ED Vital Signs: Vital Signs - 24 hr 12/10/23 09:13 Temperature 98.3 F Pulse Rate 88 Respiratory Rate 20 Blood Pressure 155/85 H Pulse Oximetry 98 Oxygen Delivery Method Room Air BMI result Body Mass Index 43.3 vss Appearance: Alert.? Oriented X3.? No acute distress.? Head: Normocephalic, atraumatic, no step-offs or deformities Eyes: Pupils equal, round and reactive to light.? Pharynx: errythema no edema, exudate or abscess. Midline UVula. CVS: Normal heart rate and rhythm.? Pulses normal.? Respiratory: No respiratory distress.? Breath sounds normal.? Abdomen: Soft and nontender.? Skin: Skin warm and dry.? Normal skin color.? Normal skin turgor.? Extremities: No lower extremity edema.? No calf ttp. 5/5 strength to bilateral upper and lower extremities Back: No midline tenderness, no C-spine tenderness, full range of motion, no CVA tenderness bilaterally Neuro: Oriented X 3.? No motor deficit.? No sensory deficit. CN 2-12 intact Course Reevaluation(s) Reevaluation #1: Flu, COVID, RSV negative. Erythematous posterior pharynx significantly painful sore throat will treat with Augmentin that would cover for bronchitis as well as strep pharyngitis if that were the case. Educated patient on diagnosis and treatment plan, answered all question, patient verbalizes understanding. At this time patient will be discharged home, advised to return with new or worsening symptoms. Educated on worrisome signs and symptoms and when to return. At this time I feel comfortable discharge home. Time: 10:21 Medical Decision Making Medical Decision Making MDM Narrative: 28-year-old female presenting with viral symptoms ongoing for the past few days. ?Physical examination benign ?This is likely flu versus COVID versus RSV versus other viral illness? Versus bronchitis.? Unlikely pneumonia, PE, ACS, retropharyngeal abscess, peritonsillar abscess, epiglottitis, threat to airway Plan- viral test? Differential Diagnosis Differential Diagnoses: The differential diagnosis associated with the presentation includes ?This is likely flu versus COVID versus RSV versus other viral illness? Versus bronchitis.? Unlikely pneumonia, PE, ACS, retropharyngeal abscess, peritonsillar abscess, epiglottitis, threat to airway Admission/Observation Consideration of admission/observation: Escalation of care including admission/observation considered Lab Data MDM Lab Attestation statement: I reviewed the patient's lab results. Labs: Lab Results 12/10/23 Range/Units 08:59 Influenza Type A (PCR) NEGATIVE (Negative) Influenza Type B (PCR) NEGATIVE (Negative) RSV RNA Qual (PCR) NEGATIVE (Negative) SARS-CoV-2 RNA (RT-PCR) NEGATIVE (Negative) S. pyogenes GrpA ROSEMARY Negative (Negative) Discharge Plan Discharge Clinical Impression: Upper respiratory infection, Pharyngitis Patient Disposition: Home, Self-Care Instructions: Pharyngitis (ED), Upper Respiratory Infection (DC) Additional Instructions: Take your medications as prescribed. If you were prescribed antibiotics today, it is important that you take your medication to their entirety, do not skip any doses, do not finish them early. Follow-up with your primary care provider this week. Return to the emergency department with new or worsening symptoms. Such as fevers, chills, chest pain, shortness of breath, nausea, vomiting, dizziness, headache, vision changes, lethargy In case of emergency call 911 Prescriptions: New prednisone 20 mg tablet 40 mg PO DAILY 5 Days Qty: 10 0RF amoxicillin-pot clavulanate 875-125 mg tablet 1 tab PO BID 10 Days Qty: 20 0RF Magic Mouthwash Diphen/Lido/Antacid 1:1:1 240 mL suspension 5 ml PO TID Qty: 240 0RF Rx Instructions: Lidocaine Viscous 2 % 80mL; diphenhydramine 12.5 mg/5 mL 80mL; aluminum-mag hydrox-simeth [id number]/5mL 80mL Swish and spit, do not swallow No Action cholecalciferol (vitamin D3) 50 mcg (2,000 unit) capsule 50 mcg PO DAILY Qty: 90 3RF amlodipine 5 mg tablet 5 mg PO BID Qty: 180 3RF mirtazapine 15 mg tablet 15 mg PO BEDTIME lidocaine 5 % adhesive patch,medicated 1 patch topical DAILY Qty: 15 0RF Rx Instructions: leave on most painful area for up to 12 hrs sertraline 100 mg tablet 100 mg PO DAILY albuterol sulfate 90 mcg/actuation HFA aerosol inhaler 2 puff inhalation Q6H PRN (Reason: shortness of breath or wheezing) Qty: 6.7 0RF sertraline 25 mg tablet 25 mg PO DAILY sennosides [senna] 8.6 mg tablet 17.2 mg PO BEDTIME Qty: 60 3RF pantoprazole 40 mg tablet,delayed release (DR/EC) 40 mg PO DAILY@0630 Qty: 90 2RF ondansetron HCl 4 mg tablet 4 mg PO Q8H PRN (Reason: nausea and vomiting) 4 Days Qty: 7 0RF Citrucel 500 mg tablet 500 mg PO DAILY Qty: 90 2RF Rx Instructions: take it with full glass of water sucralfate 1 gram tablet 1 g PO BID Qty: 180 2RF methylphenidate HCl [Concerta] 36 mg tablet extended release 24hr 36 mg PO QAM Interventions: ED Discharge Assessment Last Done: 12/10/23 10:06 Discharge Date/Time: 12/10/23 10:06
[2023-12-10 09:55] LABS: Influenza A PCR NEGATIVE (Negative); Influenza B PCR NEGATIVE (Negative); Resp Syncy Virus RNA Qual PCR NEGATIVE (Negative); SARS COV2 PCR INHOUSE NEGATIVE (Negative)
== END 2023-12-10 10:06 | disposition home or self-care (01) ==
PROVIDERS: Physician Assistant Medical; Emergency Provider Emergency Medicine; PCP Internal Medicine
DX: J02.9 Acute pharyngitis, unspecified (principal); Z11.52 Encounter for screening for COVID-19; Z20.828 Contact with and (suspected) exposure to other viral communicable diseases
CPT/HCPCS: 0241U; 87651; 99282; 99283

== ENCOUNTER 2023-12-18 13:05 | Emergency (ER) | payer OTHER, SELFPAY ==
--- NOTE | 2023-12-18 13:19 | ED.GENADULT ---
HPI - General Adult General Chief complaint: Dizziness Stated complaint: Dizziness, vomiting Time Seen by Provider: 12/18/23 14:04 Source: patient Mode of arrival: ambulatory Limitations: no limitations History of Present Illness HPI narrative: Patient is a 28-year-old assigned female at identifies as male presenting to the emergency department with complaint nausea and vomiting since this morning, lightheadedness, fatigue, body aches, and headaches. Denies sudden onset headache or worst of life. Denies neck pain or stiffness. Denies abdominal pain, diarrhea, constipation. Denies dysuria, frequency or other urinary symptoms. Was seen here on 12/09 and treated for pharyngitis with course of antibiotics, states sore throat has fully resolved but all other symptoms have been ongoing. Denies any syncope. Denies chest pain, shortness of breath, cough. Emesis is non-bloody, non-bilious. MD complaint: vomiting, lightheaded Onset (ago): week(s) Location: head Quality: aching Pain Consistency: colicky Relieving factors: rest Associated symptoms: nausea/vomiting and weakness Treatments prior to arrival: none Related Data Home Medications Medication Instructions Recorded Confirmed mirtazapine 15 mg tablet 15 mg PO BEDTIME 10/22/22 09/25/23 sertraline 100 mg tablet 100 mg PO DAILY 03/19/23 09/25/23 sertraline 25 mg tablet 25 mg PO DAILY 08/18/23 09/25/23 methylphenidate HCl 36 mg 36 mg PO QAM 09/25/23 09/25/23 tablet,extended release 24 hr (Concerta) Previous Rx's Medication Instructions Recorded sucralfate 1 gram tablet 1 g PO BID #180 tabs 04/29/23 cholecalciferol (vitamin D3) 50 50 mcg PO DAILY #90 caps 06/10/23 mcg (2,000 unit) capsule amlodipine 5 mg tablet 5 mg PO BID #180 tabs 07/03/23 lidocaine 5 % topical patch 1 patch topical DAILY #15 ea 07/25/23 albuterol sulfate 90 mcg/actuation 2 puff inhalation Q6H PRN 08/04/23 aerosol inhaler shortness of breath or wheezing #6.7 grams methylcellulose (laxative) 500 mg 500 mg PO DAILY #90 tabs 08/18/23 tablet (Citrucel) ondansetron HCl 4 mg tablet 4 mg PO Q8H PRN nausea and 08/18/23 vomiting 4 days #7 tabs pantoprazole 40 mg tablet,delayed 40 mg PO DAILY@0630 #90 tabs 08/18/23 release sennosides 8.6 mg tablet (senna) 17.2 mg (2 x 8.6 mg) PO BEDTIME 08/18/23 constipation #60 tabs Magic Mouthwash 5 ml PO TID #240 mL 12/10/23 Diphen/Lido/Antacid 1:1:1 240 mL suspension amoxicillin 875 mg-potassium 1 tab PO BID 10 days #20 tabs 12/10/23 clavulanate 125 mg tablet prednisone 20 mg tablet 40 mg (2 x 20 mg) PO DAILY 5 days 12/10/23 #10 tabs ondansetron 4 mg disintegrating 4 mg PO Q8H PRN nausea and 12/18/23 tablet vomiting #10 tabs Allergies Allergy/AdvReac Type Severity Reaction Status Date / Time Arthur And Derivatives Allergy Intermediate hives Verified 09/25/23 09:26 [CITRUS] shellfish derived Allergy Intermediate HIVES Verified 09/25/23 09:26 [SHELLFISH DERIVED] SWOLLEN FACE No Known Drug Allergies Allergy Unknown none Verified 09/25/23 09:26 SEAFOOD Allergy Severe ANGIOEDEMA Uncoded 09/18/23 10:06 Review of Systems Review of Systems: As per HPI. Yes all other systems are reviewed and are negative Constitutional: Constitutional: Reports as per HPI [facility] Past Medical History Medical History Sessile serrated polyp of colon Family history of systemic lupus erythematosus Polyarthralgia Depression Essential hypertension Impaired fasting glucose Mid back pain on left side Insomnia Vitamin D deficiency Gastric ulcer Esophagitis Heartburn Lumbago with sciatica, left side Blurred vision, bilateral Obesity (BMI 30-39.9) Surgical History Hx of esophagogastroduodenoscopy Hx of colonoscopy Family History Family History Father History of renal dialysis Chronic kidney disease (CKD) Substance use disorder Mental health disorder Mother Substance use disorder Mental health disorder Brother Mental health disorder Brother Mental health disorder Brother Mental health disorder Brother Mental health disorder Sister Mental health disorder Sister Mental health disorder Paternal Aunt Crohn's disease Social History Social History Household Members: Family and Other Household Members Other:: Aunt Housing: Apartment Are you a primary director medicare sales to a significant other at home: No Do you presently have visiting nurse or other home services: No Alcohol intake: never Patient Tobacco Use Status: Never used Tobacco e-Cigarette/Vaping Use: Former Use Second Hand Smoke Exposure: Yes Advance Directives: Yes Advance Directives on File: Yes Advance Directives Date on File: 08/26/22 service: No Current occupational status: employed 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 [employer] Sexual orientation: Lesbian/Lomas/Homosexual Cognitive needs: No Hearing needs: No Vision needs: No Physical Exam ED Vital Signs: Vital Signs - 24 hr 12/18/23 13:33 12/18/23 14:38 12/18/23 16:14 Temperature 98 F 98.3 F Pulse Rate 91 88 70 Respiratory Rate 16 16 Blood Pressure 145/94 H 153/91 H 119/71 Pulse Oximetry 99 100 Oxygen Delivery Method Room Air Room Air 12/18/23 16:14 12/18/23 16:16 Temperature Pulse Rate 82 77 Respiratory Rate Blood Pressure 133/86 141/76 H Pulse Oximetry Oxygen Delivery Method BMI result Body Mass Index 43.5 Vital signs have been reviewed and appear to be correct. Blood pressure elevated. Heart rate normal. Respiratory rate normal. Temperature normal. Oxygen saturation normal. Const General: cooperative, healthy appearing and no acute distress Orientation/consciousness: oriented to person, oriented to place, oriented to time and patient oriented x3 Limitations: no limitations HENMT Head: Yes normocephalic and Yes atraumatic Ears: external ears normal General nose exam: Normal external nose present Face and sinus: Yes face symmetric Mouth: oropharynx normal and moist mucous membranes Throat: Yes uvula midline Eyes Pupils: Equal, round and reactive pupils present Neck Neck: Yes normal visual inspection, Yes full ROM, Yes no lymphadenopathy, Yes no meningeal signs, Yes trachea midline, Yes supple and No anterior neck swelling Resp Effort & Inspection: normal respiratory effort and able to speak in complete sentences Auscultation: clear to auscultation bilaterally Cardio Rate: regular rate Rhythm: regular rhythm Heart sounds: S1 normal heart sound present and S2 normal heart sound present GI Palpation (GI): Soft to palpation and nontender Auscultation: normoactive bowel sounds General: Yes no CVA tenderness Back/Spine/Pelvis Back: no CVA tenderness Skin General skin exam: elasticity normal and turgor normal Neuro General: oriented to person, oriented to place, oriented to time, patient oriented x3, gait normal, tone normal, moves all extremities, Normal light touch and pain sensation, no meningeal signs, no focal motor deficits, CN's II-XI intact bilaterally and deep tendon reflexes 2+ bilaterally Cranial nerves: Yes Equal, round and reactive pupils present Cognition (Neuro): normal cognition Extrem General: Yes full ROM, Yes no pedal edema and Yes no calf tenderness Psych Mental Status: mental status grossly normal Affect: normal affect Thought process: Normal thought process present Course Course Course Narrative: This is an RME: Additional HPI, ROS, PE not included below will be deferred to primary provider. 28 yo f presents w/ fatingue malaise, myalgias, dizziness and feeling overall unwell. Was seen here on 12/10/23 for similar presentation and treated for strep due to high clinical suspicion Plan- labs., ekg Medications Administered Discontinued Medications Generic Name Dose Route Start Last Admin Trade Name Yanira PRN Reason Stop Dose Admin Diphenhydramine HCl 25 mg 12/18/23 14:52 12/18/23 15:03 Diphenhydramine Hcl 50 Mg/Ml Vial IVPUSH 12/18/23 14:53 25 mg ONCE ONE Administration Sodium Chloride 1,000 mls @ 999 mls/hr 12/18/23 15:00 12/18/23 16:20 Ns IV 12/18/23 16:00 Infused .Q1H1M ALEX Infusion Ketorolac Tromethamine 15 mg 12/18/23 14:52 12/18/23 15:02 Ketorolac Tromethamine 15 Mg/Ml Vial IVPUSH 12/18/23 14:53 15 mg ONCE ONE Administration Metoclopramide HCl 10 mg 12/18/23 14:52 12/18/23 15:02 Metoclopramide Hcl 10 Mg/2 Ml Vial IVPUSH 12/18/23 14:53 10 mg ONCE ONE Administration Medical Decision Making Medical Decision Making MDM Narrative: Patient is a 28-year-old assigned female at identifies as male presenting to the emergency department with complaint nausea and vomiting since this morning, lightheadedness, fatigue, body aches, and headaches. On exam patient is awake, A+Ox3, VS WNL, afebrile, normal neurological exam without focal deficits, physical exam findings as above. Given reported symptoms and physical exam findings, initial differential includes viral illness, covid, flu, rsv, mononucleosis, dehydration, electrolyte abnormality, arrythmia, anemia, gastroenteritis. Labs notable for mild leukocytosis, likely due to recent viral infection, no anemia, no electrolyte abnormalities negative HCG, negative mono. EKG shows normal sinus rhythm, no significant change from prior. Patient reports improvement in symptoms after medications and fluids given in the emergency department. All results discussed with patient and all questions answered. Feel patient is stable for discharge home at this time. Will prescribe Zofran for nausea, advised patient to progress slowly to fluids with electrolytes, then progress to a bland diet and back to regular diet as tolerated. Instructed patient to follow-up with primary care provider. Return precautions discussed at bedside. Patient verbalized understanding of and agreement with plan. Differential Diagnosis Differential Diagnoses: The differential diagnosis associated with the presentation includes As per [facility]. Admission/Observation Consideration of admission/observation: Escalation of care including admission/observation considered Patient would have been admitted to the hospital had their work up had any findings where hospital admission was appropriate and their clinical presentation warranted hospital admission. Lab Data [facility] Lab Attestation statement: I reviewed the patient's lab results. As per [facility] 12/18/23 13:42 12/18/23 13:42 Labs: Lab Results 12/18/23 12/18/23 Range/Units 13:42 15:00 WBC 11.3 H (4.8-10.8) X10*3/uL RBC 4.94 (4.20-5.50) X10*6/uL Hgb 13.1 (12.0-16.0) g/dl Hct 39.4 (37.0-47.0) % MCV 79.8 L (80.0-98.0) fL MCH 26.5 L (27.0-33.0) pg MCHC 33.2 (31.0-35.0) g/dl RDW 13.2 (11.0-16.0) % Plt Count 345 (160-400) X10*3/uL MPV 8.9 L (9.4-12.3) fL Immature Gran % (Auto) 0.4 (0.0-0.4) % Neut % (Auto) 70.0 (45-73) % Lymph % (Auto) 25.0 (20-40) % [place] % (Auto) 3.8 (2-11) % Eos % (Auto) 0.4 (0-4) % Baso % (Auto) 0.4 (0-2) % Lymph # (Auto) 2.8 (1.2-4.9) X10*3/uL [place] # (Auto) 0.4 (0.1-1.2) X10*3/uL Eos # (Auto) 0.0 (0.0-0.4) X10*3/uL Baso # (Auto) 0.0 (0.0-0.2) X10*3/uL Abs Immat Gran (auto) 0.04 H (0.00-0.03) X10*3/uL Absolute Neuts (auto) 7.9 (2.0-8.3) x10*3/uL Absolute Nucleated RBC 0.000 (0.0-0.012) X10*3/uL Nucleated RBC % (auto) 0.0 (0.0-0.2) /100WBC Sodium 138 (135-145) mmol/L Potassium 3.8 (3.3-5.1) mmol/L Chloride 105 (96-108) mmol/L Carbon Dioxide 25 (22-29) mmol/L Anion Gap 12 (12-20) BUN 12 (9-16) mg/dL Creatinine 0.78 (0.5-1.4) mg/dL Estim Creat Clear Calc 129.9 Estimated GFR > 60 Random Glucose 116 H (60-115) mg/dL Calcium 9.2 (8.4-10.2) mg/dL Total Bilirubin 0.4 (0.0-1.0) mg/dL AST 23 (5-31) U/L ALT 24 (0-31) U/L Alkaline Phosphatase 93 (39-117) U/L Total Protein 7.3 (6.5-8.0) g/dL Albumin 4.0 (3.5-5.0) g/dL Beta HCG, Quant < 2 mIU/mL Urine Color Yellow Urine Appearance Clear Urine pH 8.0 (5.0-9.0) Ur Specific Darwin 1.010 (1.005-1.025) Urine Protein Negative (Neg-Trace) mg/dL Urine Glucose (UA) Negative (Negative) mg/dL Urine Ketones Negative (Negative) mg/dL Urine Blood Negative (Negative) Urine Nitrite Negative (Negative) Ur Leukocyte Esterase Negative (Negative) Monoscreen Negative (Negative) Influenza Type A (PCR) NEGATIVE (Negative) Influenza Type B (PCR) NEGATIVE (Negative) RSV RNA Qual (PCR) NEGATIVE (Negative) SARS-CoV-2 RNA (RT-PCR) NEGATIVE (Negative) Independent Interpretation I performed an independent interpretation of an: EKG (normal sinus rhythm, rate 87bpm, normal AR interval and QTc, no significant change from prior) External Record Review External record reviewed: Inpatient record, Office record and Outpatient record Prescription Management I considered prescription management with: Other Discharge Plan Discharge Clinical Impression: Viral illness, Fatigue, Nausea & vomiting Patient Disposition: Home, Self-Care Instructions: Acute Nausea and Vomiting (ED), Viral Syndrome (ED), Fatigue (ED) Additional Instructions: You were evaluated in the emergency department today for nausea, vomiting, fatigue, and other symptoms. Your Covid, flu, strep, and mono tests were all negative. Your symptoms are likely related to a viral illness which will resolve on its own with time and rest. You are being prescribed zofran which you can use every 8 hours as needed for nausea. You should ensure adequate fluid intake, and can use Tylenol 650 mg or ibuprofen 600 mg every 6 hours as needed for fever or discomfort. Please follow-up with your primary care provider this week. Return to the emergency department if you develop chest pain, worsening shortness of breath, difficulty swallowing, fever 100.4? F or greater or any other concerning symptoms. Prescriptions: New ondansetron 4 mg tablet,disintegrating 4 mg PO Q8H PRN (Reason: nausea and vomiting) Qty: 10 0RF No Action cholecalciferol (vitamin D3) 50 mcg (2,000 unit) capsule 50 mcg PO DAILY Qty: 90 3RF amlodipine 5 mg tablet 5 mg PO BID Qty: 180 3RF mirtazapine 15 mg tablet 15 mg PO BEDTIME lidocaine 5 % adhesive patch,medicated 1 patch topical DAILY Qty: 15 0RF Rx Instructions: leave on most painful area for up to 12 hrs prednisone 20 mg tablet 40 mg PO DAILY 5 Days Qty: 10 0RF amoxicillin-pot clavulanate 875-125 mg tablet 1 tab PO BID 10 Days Qty: 20 0RF Magic Mouthwash Diphen/Lido/Antacid 1:1:1 240 mL suspension 5 ml PO TID Qty: 240 0RF Rx Instructions: Lidocaine Viscous 2 % 80mL; diphenhydramine 12.5 mg/5 mL 80mL; aluminum-mag hydrox-simeth [id number]/5mL 80mL Swish and spit, do not swallow sertraline 100 mg tablet 100 mg PO DAILY albuterol sulfate 90 mcg/actuation HFA aerosol inhaler 2 puff inhalation Q6H PRN (Reason: shortness of breath or wheezing) Qty: 6.7 0RF sertraline 25 mg tablet 25 mg PO DAILY sennosides [senna] 8.6 mg tablet 17.2 mg PO BEDTIME Qty: 60 3RF pantoprazole 40 mg tablet,delayed release (DR/EC) 40 mg PO DAILY@0630 Qty: 90 2RF ondansetron HCl 4 mg tablet 4 mg PO Q8H PRN (Reason: nausea and vomiting) 4 Days Qty: 7 0RF Citrucel 500 mg tablet 500 mg PO DAILY Qty: 90 2RF Rx Instructions: take it with full glass of water sucralfate 1 gram tablet 1 g PO BID Qty: 180 2RF methylphenidate HCl [Concerta] 36 mg tablet extended release 24hr 36 mg PO QAM
--- NOTE | 2023-12-18 13:21 | ECG_ITS ---
Test Reason : DIZZINESS Blood Pressure : / mmHG Vent. Rate : 087 BPM Atrial Rate : 087 BPM P-R Int : 136 ms QRS Dur : 082 ms QT Int : 338 ms P-R-T Axes : 011 001 001 degrees QTc Int : 406 ms Normal sinus rhythm Minimal voltage criteria for LVH, may be normal variant ( R in aVL ) Nonspecific T wave abnormality Abnormal ECG When compared with ECG of 23-JUN-2023 18:01, No significant change was found Referred By: Howard Guzmán Electronically Signed By:YI PARSONS MD
[2023-12-18 13:33] VITALS: BP 145/94; PULSE 91; RESP 16; TEMP 36.6; O2SAT 99; BMI 43.5
[2023-12-18 13:51] LABS: MANUAL DIFF FLAG NO
[2023-12-18 13:54] LABS: Basophils Percent Auto 0.4 % (0-2); Eosinophils Percent Auto 0.4 % (0-4); Hematocrit 39.4 % (37.0-47.0); Hemoglobin 13.1 g/dl (12.0-16.0); Imm Gran Abs Auto 0.04 X10*3/uL (0.00-0.03); Imm Gran Pct Auto 0.4 % (0.0-0.4); Lymphocytes Absolute Auto 2.8 X10*3/uL (1.2-4.9); Mean Corpuscular HGB Conc 33.2 g/dl (31.0-35.0); Mean Corpuscular Hemoglobin 26.5 pg (27.0-33.0); Mean Corpuscular Volume 79.8 fL (80.0-98.0); Mean Platelet Volume 8.9 fL (9.4-12.3); Monocytes Absolute Auto 0.4 X10*3/uL (0.1-1.2); Monocytes Percent Auto 3.8 % (2-11); Neutrophils Absolute Auto 7.9 x10*3/uL (2.0-8.3); Platelet Count 345 X10*3/uL (160-400); Red Blood Count 4.94 X10*6/uL (4.20-5.50); Red Cell Distribution Width 13.2 % (11.0-16.0); White Blood Count 11.3 X10*3/uL (4.8-10.8)
[2023-12-18 14:22] LABS: Alanine Aminotransferase 24 U/L (0-31); Alkaline Phosphatase 93 U/L (39-117); Anion Gap 12 (12-20); Aspartate Amino Transferase 23 U/L (5-31); Bilirubin Total 0.4 mg/dL (0.0-1.0); Blood Urea Nitrogen 12 mg/dL (9-16); Calcium 9.2 mg/dL (8.4-10.2); Carbon Dioxide 25 mmol/L (22-29); Chloride 105 mmol/L (96-108); Creatinine Clr Calc Pharmacy 129.9; Estimated Glomerular Filt Rate > 60; Glucose Random 116 mg/dL (60-115); Potassium 3.8 mmol/L (3.3-5.1); Sodium 138 mmol/L (135-145); Total Protein 7.3 g/dL (6.5-8.0)
[2023-12-18 14:23] LABS: HCG Quantitative < 2 mIU/mL
[2023-12-18 14:32] LABS: Influenza A PCR NEGATIVE (Negative); Influenza B PCR NEGATIVE (Negative); Resp Syncy Virus RNA Qual PCR NEGATIVE (Negative); SARS COV2 PCR INHOUSE NEGATIVE (Negative)
[2023-12-18 14:38] VITALS: BP 153/91; PULSE 88; RESP 16; TEMP 36.8; O2SAT 100
[2023-12-18] MEDS: Ketorolac Tromethamine 15 MG/ML VIAL IVPUSH (15:02)
[2023-12-18] MEDS: Metoclopramide HCl 10 MG/2 ML VIAL IVPUSH (15:02)
[2023-12-18] MEDS: diphenhydrAMINE HCL 50 MG/ML VIAL 25 MG IVPUSH (15:03)
[2023-12-18] MEDS: 0.9 % Sodium Chloride 1,000 ML 999 ML IV (15:03)
[2023-12-18 15:09] LABS: Appearance Urine Clear; Color Urine Yellow; Glucose Urine UA Negative (Negative); Leukocyte Esterase Urine Negative (Negative); Nitrite Urine Negative (Negative); Urine Blood Negative (Negative); Urine Ketones Negative (Negative); Urine Protein Negative (Neg-Trace)
[2023-12-18 15:29] LABS: Monotest Negative (Negative)
[2023-12-18 16:14] VITALS: BP 119/71; BP 133/86; PULSE 70; PULSE 82
[2023-12-18 16:16] VITALS: BP 141/76; PULSE 77
[2023-12-18 18:49] VITALS: BP 139/74; PULSE 70; RESP 16; TEMP 36.6; O2SAT 98
== END 2023-12-18 18:52 | disposition home or self-care (01) ==
PROVIDERS: Physician Assistant; Registered Nurse Emergency; Emergency Provider Emergency Medicine; PCP Internal Medicine
DX: B34.9 Viral infection, unspecified (principal); R42 Dizziness and giddiness; R11.2 Nausea with vomiting, unspecified; R53.1 Weakness; R94.31 Abnormal electrocardiogram [ECG] [EKG]; Z79.899 Other long term (current) drug therapy; Z11.52 Encounter for screening for COVID-19; Z20.822 Contact with and (suspected) exposure to COVID-19
CPT/HCPCS: 0241U; 36415; 80053; 81003; 84702; 85025; 86308; 93005; 96361; 96374; 96375; 99284; 99285; J1200; J1885; J2765

== ENCOUNTER → 2023-12-18 13:21 | Outpatient (BNV) | payer OTHER, SELFPAY | PROVIDERS: Emergency Provider Emergency Medicine; PCP Internal Medicine; Visit Provider Internal Medicine Cardiovascular Disease | DX: R42 Dizziness and giddiness (principal) | CPT/HCPCS: 93010 ==

== ENCOUNTER 2024-01-01 13:44 | Outpatient (AMB) | payer OTHER, SELFPAY ==
--- NOTE | 2024-01-01 13:45 | MHC.OFFWIV ---
Intake Vital Signs 01/01/24 13:52 Height 5 ft 3 in Weight 249 lb BMI 44.1 BP 130/100 H Blood Pressure Location Lt brachial Position Sitting Pulse 94 Pulse Source Pulse Oximeter Temp 97.4 F Temp Source Temporal Artery Scan Pulse Oximetry (%) 99 Oxygen Delivery Method Room Air Intake Visit Reasons: EP- SOB, chest pain- [phone] Intake Note: pt is here today for SOB chest pain started 12/04 Patient Tobacco Use Status: Never used Tobacco Allergies Clayton And Derivatives [CITRUS] Allergy (Intermediate, Verified 01/01/24 13:49) hives shellfish derived [SHELLFISH DERIVED] Allergy (Intermediate, Verified 01/01/24 13:49) HIVES SWOLLEN FACE No Known Drug Allergies Allergy (Unknown, Verified 01/01/24 13:49) none SEAFOOD Allergy (Severe, Uncoded 09/18/23 10:06) ANGIOEDEMA Do you need a note to return to daycare/school/sports/work: Yes HPI HPI Comments History of Present Illness Details 28 y/o female patient who presents to walk in clinic with c/o chest congestion, SOB and chest tightness. Reports that symptoms started ~ 3 weeks. She has been seen at [facility] multiple times for the similar issues and has been treated with Augmentin. Denies fevers, chills, nausea or vomiting. 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 [facility] Medical History Sessile serrated polyp of colon Family history of systemic lupus erythematosus Polyarthralgia Depression Essential hypertension Impaired fasting glucose Mid back pain on left side Insomnia Vitamin D deficiency Gastric ulcer Esophagitis Heartburn Lumbago with sciatica, left side Blurred vision, bilateral Obesity (BMI 30-39.9) Surgical History Hx of esophagogastroduodenoscopy Hx of colonoscopy Family History Father History of renal dialysis Chronic kidney disease (CKD) Substance use disorder Mental health disorder Mother Substance use disorder Mental health disorder Brother Mental health disorder Brother Mental health disorder Brother Mental health disorder Brother Mental health disorder Sister Mental health disorder Sister Mental health disorder Paternal Aunt Crohn's disease Social History Household Members: Family and Other Household Members Other:: Aunt Housing: Apartment Are you a primary medicare biller to a significant other at home: No Do you presently have visiting nurse or other home services: No Alcohol intake: never Patient Tobacco Use Status: Never used Tobacco e-Cigarette/Vaping Use: Former Use Second Hand Smoke Exposure: Yes Advance Directives Date on File: 08/26/22 service: No Current occupational status: employed 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 [employer] Sexual orientation: Lesbian/Lomas/Homosexual Cognitive needs: No Hearing needs: No Vision needs: No Female Reproductive History Menstrual Age of Menarche: 13 Review of Systems Const All systems reviewed & are unremarkable except as noted in HPI and below Physical Exam Const General: comfortable and no acute distress Nutritional Appearance: obese morbidly obese Orientation/consciousness: patient oriented x3 HEENT Head: Yes normocephalic Ears: external ears normal and TM's normal bilaterally General nose exam: Normal nasal mucous membranes and turbinates present Face and sinus: Yes sinuses nontender Mouth: moist mucous membranes Throat: Yes posterior oropharynx normal Neuro General: patient oriented x3 Assessment & Plan Assessment & Plan (1) Upper respiratory infection: Code(s): J06.9 - Acute upper respiratory infection, unspecified Qualifiers: URI type: acute pharyngitis Pharyngitis/tonsillitis etiology: unspecified etiology Qualified Code(s): J02.9 - Acute pharyngitis, unspecified Plan: - SARs - Prob viral vs Bacterial - OTC cough remedies. Orders: Orders SARS-CoV2/FLU/RSV Today J02.9 - Acute pharyngitis, unspecified Coding Level of Care Code Est Pt Level 3 (81083) Diagnoses Acute pharyngitis, unspecified etiology J02.9 URI type: acute pharyngitis Pharyngitis/tonsillitis etiology: unspecified etiology Time Spent (min) 15
[2024-01-01 13:52] VITALS: BP 130/100; PULSE 94; TEMP 36.3; O2SAT 99; BMI 44.1
== END 2024-01-01 14:52 | disposition home or self-care (01) ==
PROVIDERS: PCP Internal Medicine; Visit Provider Nurse Practitioner Family
DX: J02.9 Acute pharyngitis, unspecified (principal)
CPT/HCPCS: 99213

== ENCOUNTER 2024-01-01 14:19 | Outpatient (REF) | payer OTHER, SELFPAY ==
[2024-01-01 19:05] LABS: Influenza A PCR NEGATIVE (Negative); Influenza B PCR NEGATIVE (Negative); Resp Syncy Virus RNA Qual PCR NEGATIVE (Negative); SARS COV2 PCR INHOUSE NEGATIVE (Negative)
== END 2024-01-01 14:20 | disposition home or self-care (01) ==
LOC: HO.LAB 14:19
PROVIDERS: Visit Provider Nurse Practitioner Family
DX: J02.9 Acute pharyngitis, unspecified (principal)
CPT/HCPCS: 0241U

== ENCOUNTER 2024-01-20 10:09 | Outpatient (AMB) | payer OTHER, SELFPAY ==
--- NOTE | 2024-01-20 10:20 | MHC.OFFVIS ---
Intake Vital Signs 01/20/24 10:25 Height 5 ft 3 in Weight 249 lb 1.957 oz BMI 44.1 BP 118/81 Blood Pressure Location Lt brachial Position Sitting Pulse 86 Intake Visit Reasons: 6 mnth Intake Note: Jw presents in the office as a 6 month follow up. CC: States that they are not having any concerns at this time. Roadway Technician Required: No Allergies [place] And Derivatives [CITRUS] Allergy (Intermediate, Verified 01/20/24 10:25) hives shellfish derived [SHELLFISH DERIVED] Allergy (Intermediate, Verified 01/20/24 10:25) HIVES SWOLLEN FACE No Known Drug Allergies Allergy (Unknown, Verified 01/20/24 10:25) none SEAFOOD Allergy (Severe, Uncoded 01/20/24 10:25) ANGIOEDEMA HPI 6 mnth HPI Details LAST VISIT: Heartburn Postprandial epigastric pain Postprandial diarrhea Plan Continue taking Citrucel daily. Patient may increase to twice a day if needed. Patient will benefit to be attrition as to help with weight loss. Continue taking pantoprazole in the morning and sucralfate at bedtime. Avoid dietary triggers and late night snacking. Staying upright for minimal 3 hours after meals discussed with patient. Patient does report occasional postprandial abdominal pain in the right upper and left upper quadrant. Will send patient for abdominal ultrasound. Patient was encouraged to avoid NSAIDs. I will see him in 6 months, sooner on as needed basis. He is agreeable to this plan and verbalizes understanding of instructions. He was given the opportunity to ask questions and all questions answered. ? Thank you for allowing me to participate in his care Orders Orders US abdomen complete Today R10.9 Referrals Utility Person Nutrition Referral E66.01 Medications Refilled sennosides (senna) 17.2 mg (2 x 8.6 mg) PO BEDTIME 60 tabs 3RF constipation methylcellulose (laxative) (Citrucel) take it with full glass of water 500 mg PO DAILY 90 tabs 2RF K59.00 pantoprazole 40 mg PO DAILY@0630 90 tabs 2RF ondansetron HCl 4 mg PO Q8H 4 days PRN 7 tabs 0RF nausea and vomiting Discontinued ibuprofen Discontinued Reason: Patient Completed Course 600 mg PO Q6H 20 tabs 0RF pain meclizine Discontinued Reason: Patient Completed Course 12.5 mg PO TID PRN 14 tabs 0RF dizziness naproxen Discontinued Reason: Patient Completed Course 500 mg PO BID PRN 20 tabs 0RF pain cyclobenzaprine Discontinued Reason: Patient Completed Course 10 mg PO TID PRN 14 tabs 0RF muscle spasm TODAY'S VISIT: Patient is here today for follow-up and to discuss ultrasound results. No abnormal findings except for hepatic steatosis. Patient reports to be feeling well for the most part. No longer is taking sucralfate at bedtime. Takes PPI in the morning and his symptoms of acid reflux are suppressed. Patient denies any dyspepsia, dysphagia or odynophagia. Reports that he is moving his bowels well without any issues. He is taking senna daily. Occasional abdominal cramping and not lower quadrant. Patient denies any other GI concerning symptoms. Patient would like to lose weight, however he wishes not to go for bariatric surgery. Patient will call charge auditor to help with diet choices [facility] Medical History Sessile serrated polyp of colon Family history of systemic lupus erythematosus Polyarthralgia Depression Essential hypertension Impaired fasting glucose Mid back pain on left side Insomnia Vitamin D deficiency Gastric ulcer Esophagitis Heartburn Lumbago with sciatica, left side Blurred vision, bilateral Obesity (BMI 30-39.9) Surgical History Hx of esophagogastroduodenoscopy Hx of colonoscopy Family History Father History of renal dialysis Chronic kidney disease (CKD) Substance use disorder Mental health disorder Mother Substance use disorder Mental health disorder Brother Mental health disorder Brother Mental health disorder Brother Mental health disorder Brother Mental health disorder Sister Mental health disorder Sister Mental health disorder Paternal Aunt Crohn's disease Social History Household Members: Family and Other Household Members Other:: Aunt Housing: Apartment Are you a primary career coordinator to a significant other at home: No Do you presently have visiting nurse or other home services: No Alcohol intake: never Patient Tobacco Use Status: Never used Tobacco e-Cigarette/Vaping Use: Former Use Second Hand Smoke Exposure: Yes Advance Directives Date on File: 08/26/22 service: No Current occupational status: employed 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 [employer] Sexual orientation: Lesbian/Lomas/Homosexual Cognitive needs: No Hearing needs: No Vision needs: No Female Reproductive History Menstrual Age of Menarche: 13 Review of Systems Const Denies weight gain and Denies weight loss ENT Reports no additional complaints, Denies dysphagia and Denies odynophagia Card Reports no additional complaints Resp Reports no additional complaints GI Denies abdominal pain, Denies belching, Denies melena, Denies bloating, Denies change in bowel habits, Denies dysphagia, Denies excessive flatus, Denies dyspepsia, Denies heartburn, Denies diarrhea, Denies loose stools, Denies nausea, Denies odynophagia and Denies vomiting Musc Reports no additional complaints Neuro Reports no additional complaints Psych Reports no additional complaints Endo Reports no additional complaints Physical Exam Vital Signs: Last Vital Signs Pulse 86 01/20/24 10:25 BP 118/81 01/20/24 10:25 BMI result Body Mass Index 44.1 Const General: healthy appearing and no acute distress Nutritional Appearance: obese Orientation/consciousness: patient oriented x3 Resp Effort & Inspection: normal respiratory effort, able to speak in complete sentences, no tracheal deviation and symmetric chest movement Auscultation: clear to auscultation bilaterally Cardio Rate: regular rate GI Inspection: Yes normal to inspection, No distended and Yes obesity Palpation (GI): Soft to palpation, not firm, nontender and No hepatosplenomegaly present Auscultation: normal bowel sounds General: Yes no CVA tenderness Back/Spine/Pelvis Back: no CVA tenderness Skin General skin exam: elasticity normal, turgor normal and dry skin Neuro General: patient oriented x3 Psych Appearance: grossly normal Mental Status: mental status grossly normal Results Reviewed Results Reviewed: ABD. US FINDINGS: PANCREAS: Limited visualization. ABDOMINAL AORTA: The proximal, mid, and distal segments are normal in caliber. INFERIOR VENA CAVA: Visualized portions are normal. LIVER: The liver is normal in size. The liver contour is normal. There is diffuse increased liver parenchymal echogenicity, consistent with hepatic steatosis. No focal hepatic lesion. There is no intrahepatic biliary duct dilatation seen. GALLBLADDER: The gallbladder is physiologically distended without evidence of stones, sludge, polyps, wall thickening or pericholecystic fluid. COMMON BILE DUCT: Normal in caliber measuring 0.2 cm in diameter. RIGHT KIDNEY: No hydronephrosis. No renal calculi or focal parenchymal lesions. The kidney measures 10.4 cm in maximum dimension. LEFT KIDNEY: No hydronephrosis. No renal calculi or focal parenchymal lesions. The kidney measures 9.8 cm in maximum dimension. SPLEEN: The spleen measures 12.2 cm in maximum dimension. FREE FLUID: None. US/US abdomen complete IMPRESSION: Hepatic steatosis. Assessment & Plan Assessment & Plan (1) Heartburn: Code(s): R12 - Heartburn (2) Postprandial epigastric pain: Code(s): R10.13 - Epigastric pain (3) Postprandial diarrhea: Code(s): K52.9 - Noninfective gastroenteritis and colitis, unspecified (4) Hepatic steatosis: Code(s): K76.0 - Fatty (change of) liver, not elsewhere classified Plan Continue pantoprazole daily. Patient was also encouraged to avoid dietary triggers and late night snacking. Staying upright for minimum 3 hours after meals discussed with patient. Patient was encouraged to lose weight. Hepatic steatosis found on ultrasound. Patient had normal liver enzymes. Continue senna patient was encouraged to increase fluid intake and activity to promote better bowel motility. I will see have any 3 months, sooner on as needed basis. Patient is agreeable to this plan and verbalizes understanding of instructions. She was given the opportunity to ask questions and all questions answered. Thank you for allowing me to participate in her care Medications: Refilled pantoprazole 40 mg PO DAILY@0630 90 tabs 2RF sennosides (senna) 17.2 mg (2 x 8.6 mg) PO BEDTIME 60 tabs 3RF constipation Discontinued sucralfate Discontinued Reason: Patient no longer taking 1 g PO BID 180 tabs 2RF R10.13 - Epigastric pain Coding Level of Care Code Est Pt Level 3 (73668) Diagnoses Heartburn R12 Postprandial epigastric pain R10.13 Postprandial diarrhea K52.9 Hepatic steatosis K76.0 Time Spent (min) 30 Comment 20 minutes spent with patient and additional 10 minutes spent reviewing her records
[2024-01-20 10:25] VITALS: BP 118/81; PULSE 86; BMI 44.1
== END 2024-01-20 10:52 | disposition home or self-care (01) ==
PROVIDERS: PCP Internal Medicine; Visit Provider Nurse Practitioner Family
DX: R12 Heartburn (principal); K52.9 Noninfective gastroenteritis and colitis, unspecified; K76.0 Fatty (change of) liver, not elsewhere classified
CPT/HCPCS: 99213

== ENCOUNTER → 2024-01-20 10:09 | Outpatient (BNVA) | payer OTHER, SELFPAY | PROVIDERS: PCP Internal Medicine; Visit Provider Nurse Practitioner Family | DX: K52.9 Noninfective gastroenteritis and colitis, unspecified (principal); K76.0 Fatty (change of) liver, not elsewhere classified; R12 Heartburn; R10.13 Epigastric pain | CPT/HCPCS: 99212 ==

== ENCOUNTER 2024-02-04 12:20 | Outpatient (AMB) | payer OTHER, SELFPAY ==
[2024-02-04 13:12] VITALS: BP 118/76; PULSE 79; TEMP 36.7; O2SAT 98; BMI 44.1
--- NOTE | 2024-02-04 13:12 | MHC.OFFWIV ---
Intake Vital Signs 02/04/24 13:12 Height 5 ft 3 in Weight 249 lb BMI 44.1 BP 118/76 Blood Pressure Location Rt brachial Position Sitting Pulse 79 Pulse Source Pulse Oximeter Temp 98.0 F Temp Source Oral Pulse Oximetry (%) 98 Oxygen Delivery Method Room Air Intake Visit Reasons: EP swollen ankles/hands pain while walking Intake Note: pt is here for swollen ankles and hands while walking Patient Tobacco Use Status: Never used Tobacco Allergies [place] And Derivatives [CITRUS] Allergy (Intermediate, Verified 02/04/24 13:12) hives shellfish derived [SHELLFISH DERIVED] Allergy (Intermediate, Verified 02/04/24 13:12) HIVES SWOLLEN FACE No Known Drug Allergies Allergy (Unknown, Verified 02/04/24 13:12) none SEAFOOD Allergy (Severe, Uncoded 01/20/24 10:25) ANGIOEDEMA Do you need a note to return to daycare/school/sports/work: No HPI EP swollen ankles/hands pain while walking HPI Details 28 year old patient PMH significant for hypertension, fibromyalgia, morbid obesity, polyarthralgia, depression, impaired fasting glucose, presents today to the [place] clinic. Patient reports 2-3 week history of constant joint pain, particularly in ankles, knees, and most recently right wrist. No trauma or inciting event to this. Denies any new medications or lifestyle changes. Patient reports they often get joint aches/pain with hx of fibromyalgia, however it is never constant or as severe as it is now. Patient also reports they have been increasingly fatigued lately and have had more frequent headaches than usual. Denies any recent illness. Denies any fever, chills, or resp symptoms. No recent rashes. Reports ankle pain is the worst, and it is making walking very painful. [facility] Medical History Sessile serrated polyp of colon Family history of systemic lupus erythematosus Polyarthralgia Depression Essential hypertension Impaired fasting glucose Mid back pain on left side Insomnia Vitamin D deficiency Gastric ulcer Esophagitis Heartburn Lumbago with sciatica, left side Blurred vision, bilateral Obesity (BMI 30-39.9) Surgical History Hx of esophagogastroduodenoscopy Hx of colonoscopy Family History Father History of renal dialysis Chronic kidney disease (CKD) Substance use disorder Mental health disorder Mother Substance use disorder Mental health disorder Brother Mental health disorder Brother Mental health disorder Brother Mental health disorder Brother Mental health disorder Sister Mental health disorder Sister Mental health disorder Paternal Aunt Crohn's disease Social History Household Members: Family and Other Household Members Other:: Aunt Housing: Apartment Are you a primary hospice patient care secretary to a significant other at home: No Do you presently have visiting nurse or other home services: No Alcohol intake: never Patient Tobacco Use Status: Never used Tobacco e-Cigarette/Vaping Use: Former Use Second Hand Smoke Exposure: Yes Advance Directives Date on File: 08/26/22 service: No Current occupational status: employed 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 [employer] Sexual orientation: Lesbian/Lomas/Homosexual Cognitive needs: No Hearing needs: No Vision needs: No Female Reproductive History Menstrual Age of Menarche: 13 Review of Systems Const All systems reviewed & are unremarkable except as noted in HPI and below Physical Exam Vital Signs: Last Vital Signs Temp 98.0 F 02/04/24 13:12 Pulse 79 02/04/24 13:12 BP 118/76 02/04/24 13:12 Pulse Ox 98 02/04/24 13:12 Oxygen Delivery Method Room Air 02/04/24 13:12 BMI result Body Mass Index 44.1 Const General: cooperative and no acute distress Nutritional Appearance: obese Orientation/consciousness: patient oriented x3 Limitations: no limitations HEENT Head: Yes normal to inspection Ears: hearing grossly normal bilaterally Neck Neck: Yes no lymphadenopathy Resp Effort & Inspection: normal respiratory effort Auscultation: clear to auscultation bilaterally Cardio Rate: regular rate Rhythm: regular rhythm Skin General skin exam: no rashes or lesions noted Neuro General: patient oriented x3, gait normal, no focal motor deficits and deep tendon reflexes 2+ bilaterally Extrem Other: full ROM ankles, knees, wrists b/l. Mild pain at anterior ankles with dorsiflexion of feet. No edema, erythema, or excessive warmth noted. No crepitus or joint enlargement. General: Yes capillary refill normal Psych Appearance: grossly normal Mental Status: mental status grossly normal Speech and movement: Normal speech and movement present Assessment & Plan Assessment & Plan (1) Polyarthralgia: Code(s): M25.50 - Pain in unspecified joint Plan: Patient has history of fm and polyarthralgias, however this joint pain, fatigue, headaches have been persistent for several weeks now. History of positive KERI, which we discussed in the office. I am going to check some labs - CBC, TSH, ESR, and have patient f/u with PCP Dr. Samano - message sent for appointment to be scheduled. Patient agrees with this. I am also going to start patient on short course of meloxicam to see if this helps their joint pain. Reviewed indications, use, possible s/e of this. Patient will f/u with PCP or sooner as needed at the [place]. Patient agrees to plan. Orders: Orders Complete Blood Count Auto Diff Today M25.50 - Pain in unspecified joint Thyroid Stimulating Hormone Today M25.50 - Pain in unspecified joint Erythrocyte Sedimentation Rate Today M25.50 - Pain in unspecified joint Medications: New meloxicam 15 mg PO DAILY 7 days 7 tabs 0RF M25.50 - Pain in unspecified joint Coding Level of Care Code Est Pt Level 4 (97281) Diagnoses Polyarthralgia M25.50
== END 2024-02-04 14:13 | disposition home or self-care (01) ==
PROVIDERS: PCP Internal Medicine; Visit Provider Nurse Practitioner Family
DX: M25.50 Pain in unspecified joint (principal)
CPT/HCPCS: 99214

== ENCOUNTER 2024-02-04 14:37 | Outpatient (REF) | payer OTHER, SELFPAY ==
[2024-02-04 16:09] LABS: MANUAL DIFF FLAG NO
[2024-02-04 16:21] LABS: Basophils Absolute Auto 0.1 X10*3/uL (0.0-0.2); Basophils Percent Auto 0.6 % (0-2); Eosinophils Absolute Auto 0.1 X10*3/uL (0.0-0.4); Hematocrit 37.6 % (37.0-47.0); Hemoglobin 12.5 g/dl (12.0-16.0); Imm Gran Abs Auto 0.03 X10*3/uL (0.00-0.03); Imm Gran Pct Auto 0.4 % (0.0-0.4); Lymphocytes Absolute Auto 2.2 X10*3/uL (1.2-4.9); Lymphocytes Percent Auto 27.2 % (20-40); Mean Corpuscular HGB Conc 33.2 g/dl (31.0-35.0); Mean Corpuscular Hemoglobin 26.8 pg (27.0-33.0); Mean Corpuscular Volume 80.7 fL (80.0-98.0); Monocytes Absolute Auto 0.4 X10*3/uL (0.1-1.2); Monocytes Percent Auto 4.2 % (2-11); Neutrophils Absolute Auto 5.5 x10*3/uL (2.0-8.3); Neutrophils Percent Auto 66.6 % (45-73); Platelet Count 335 X10*3/uL (160-400); Red Blood Count 4.66 X10*6/uL (4.20-5.50); Red Cell Distribution Width 13.9 % (11.0-16.0); White Blood Count 8.3 X10*3/uL (4.8-10.8)
[2024-02-04 16:57] LABS: Erythrocyte Sedimentation Rate 13 MM/HR (0-20)
[2024-02-04 17:09] LABS: Thyroid Stimulating Hormone 1.34 uIU/mL (0.32-4.0)
== END 2024-02-04 14:38 | disposition home or self-care (01) ==
LOC: HO.HMGCLDS 14:37
PROVIDERS: Visit Provider Nurse Practitioner Family
DX: M25.50 Pain in unspecified joint (principal)
CPT/HCPCS: 36415; 84443; 85025; 85652

== ENCOUNTER 2024-02-18 18:06 | Emergency (ER) | payer OTHER, SELFPAY ==
--- NOTE | ~2024-02-18 | XR_ITS ---
EXAMINATION: XR SHOULDER, RIGHT CLINICAL INFORMATION: Pain after lifting felt pop COMPARISON: None available. TECHNIQUE: Three views of the right shoulder. FINDINGS: No acute visible fracture or dislocation. Slightly increased acromiohumeral interval which may reflect rotator cuff pathology. Joint space alignment otherwise maintained. Soft tissues are unremarkable. Visualized portions of the chest are unremarkable. XR/XR shoulder RT min 2V IMPRESSION: 1. No acute visible fracture or dislocation. 2. Slightly increased acromiohumeral interval which may reflect rotator cuff pathology.
[2024-02-18 19:10] VITALS: BP 159/95; PULSE 79; RESP 16; TEMP 37.6; O2SAT 100; BMI 40.7
--- NOTE | 2024-02-18 19:44 | ED.EXTPRO ---
HPI - Extremity Problem General Chief complaint: Extremity Injury, Upper Stated complaint: R shoulder pain, referred from urgent care Time Seen by Provider: 02/19/24 04:27 Source: patient Mode of arrival: ambulatory Limitations: no limitations History of Present Illness HPI Narrative: Patient comes to the emergency room complaining of right shoulder pain. Patient states that earlier today she heard a pop noise when she was standing up, leaning forward , carrying her child. Patient complaining of localized pain. Denies numbness tingling. Related Data Home Medications ?Medication ?Instructions ?Recorded ?Confirmed mirtazapine 15 mg tablet 15 mg PO BEDTIME 10/22/22 09/25/23 sertraline 100 mg tablet 100 mg PO DAILY 03/19/23 09/25/23 sertraline 25 mg tablet 25 mg PO DAILY 08/18/23 09/25/23 methylphenidate HCl 36 mg 36 mg PO QAM 09/25/23 09/25/23 tablet,extended release 24 hr (Concerta) Previous Rx's ?Medication ?Instructions ?Recorded amlodipine 5 mg tablet 5 mg PO BID #180 tabs 07/03/23 lidocaine 5 % topical patch 1 patch topical DAILY #15 ea 07/25/23 albuterol sulfate 90 mcg/actuation 2 puff inhalation Q6H PRN 08/04/23 aerosol inhaler shortness of breath or wheezing #6.7 grams methylcellulose (laxative) 500 mg 500 mg PO DAILY #90 tabs 08/18/23 tablet (Citrucel) ondansetron 4 mg disintegrating 4 mg PO Q8H PRN nausea and 12/18/23 tablet vomiting #10 tabs pantoprazole 40 mg tablet,delayed 40 mg PO DAILY@0630 #90 tabs 01/20/24 release sennosides 8.6 mg tablet (senna) 17.2 mg (2 x 8.6 mg) PO BEDTIME 01/20/24 constipation #60 tabs meloxicam 15 mg tablet 15 mg PO DAILY 7 days #7 tabs 02/04/24 ibuprofen 600 mg tablet 600 mg PO TID PRN pain #14 tabs 02/19/24 Allergies Allergy/AdvReac Type Severity Reaction Status Date / Time [place] And Derivatives Allergy Intermediate hives Verified 02/18/24 19:12 [CITRUS] shellfish derived Allergy Intermediate HIVES Verified 02/18/24 19:12 [SHELLFISH DERIVED] SWOLLEN FACE No Known Drug Allergies Allergy Unknown none Verified 02/18/24 19:12 SEAFOOD Allergy Severe ANGIOEDEMA Uncoded 02/18/24 19:12 Review of Systems Review of Systems: Constitutional : No Weight loss, No Fever, No Chills, No Night Sweats, No Fatigue, No Malaise ENT/Mouth : No Hearing loss, No Ear Pain, No Nasal Congestion, No Sinus Pain, No Hoarseness, No sore throat, No Rhinorrhea, No Swallowing Difficulty Eyes: No Eye Pain, No Swelling, No Redness, No Foreign Body, No Discharge, No Vision Changes Cardiovascular : No Chest Pain, No SOB, No Dyspnea on Exertion, No Orthopnea, No Edema, No Palpitations Respiratory : No Cough, No Sputum, No Wheezing, No Smoke Exposure, No Dyspnea Gastrointestinal : No Nausea, No Vomiting, No Diarrhea, No Constipation, No abdominal Pain, No Hematochezia, No Melena Genitourinary : no irregular bleeding, No Dysuria, No Urinary Frequency, No Hematuria, No Urinary Incontinence, No Urgency, No Flank Pain, No Urinary Flow Changes, No Hesitancy Musculoskeletal : Complaining of right shoulder pain, heard a popping noise,, No Myalgias, No Joint Swelling Skin : No Skin Lesions, No rash Neuro : No Weakness, No Numbness, No Paresthesias, No Loss of Consciousness, No Dizziness, No Headache Psych : No Anxiety/Panic, No Depression, No SI/HI/AH/VH, No Social Issues, Heme/Lymph: No Bruising, No Bleeding,No Lymphadenopathy Endocrine : No Polyuria, No Polydipsia, No Temperature Intolerance [facility] Past Medical History Medical History Sessile serrated polyp of colon Family history of systemic lupus erythematosus Polyarthralgia Depression Essential hypertension Impaired fasting glucose Mid back pain on left side Insomnia Vitamin D deficiency Gastric ulcer Esophagitis Heartburn Lumbago with sciatica, left side Blurred vision, bilateral Obesity (BMI 30-39.9) Surgical History Hx of esophagogastroduodenoscopy Hx of colonoscopy Family History Family History Father History of renal dialysis Chronic kidney disease (CKD) Substance use disorder Mental health disorder Mother Substance use disorder Mental health disorder Brother Mental health disorder Brother Mental health disorder Brother Mental health disorder Brother Mental health disorder Sister Mental health disorder Sister Mental health disorder Paternal Aunt Crohn's disease Social History Social History Household Members: Family and Other Household Members Other:: Aunt Housing: Apartment Are you a primary care mgr to a significant other at home: No Do you presently have visiting nurse or other home services: No Alcohol intake: never Patient Tobacco Use Status: Never used Tobacco e-Cigarette/Vaping Use: Former Use Second Hand Smoke Exposure: Yes Advance Directives: Yes Advance Directives on File: Yes Advance Directives Date on File: 08/26/22 Do you have a plan to hurt others: No Plan service: No Current occupational status: employed 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 Oriented X3. No acute distress. Eyes: Pupils equal, round and reactive to light. ENT: Pharynx normal. Neck: Normal inspection. Neck supple. No lymph nodes noted. No crepitus CVS: Normal heart rate and rhythm. Pulses normal. Normal S1 and S2 Respiratory: No respiratory distress. Breath sounds normal. No Wheezing. No rales Abdomen: Soft and nontender. No rigidity. No distention. Skin: Skin warm and dry. Normal skin color. Normal skin turgor. Extremities: No lower extremity edema. No Lacerations. No Rash. Pain with arm abduction. However, patient is able to fully abduct the arm to 180 degrees in holding arm. Neuro: Oriented X 3. No motor deficit. No sensory deficit. Moving all extremities. No slurred speech. CN 2 through 12 grossly intact Psych: calm, cooperative, normal affect Course Course Course Narrative: This is a rapid medical exam performed by Dominic Anthony NP: Additional HPI, ROS, PE not included below will be deferred to primary provider. Patient is a 28-year-old presenting to the emergency department with complaint of right shoulder pain after lifting child. [place] a pop sensation. Referred to the ED for x-ray imaging as this was unavailable urgent care. Plan: xray Medical Decision Making Medical Decision Making [facility] Narrative: My interpretation of x-ray: No obvious dislocation or fracture: -patient has full range of motion. -patient given a dose of IM ketorolac in the ED. -patient may have a slight rotator cuff injury. However, patient has full range of motion Independent Interpretation I performed an independent interpretation of an: Plain X-Ray Radiology Impression Discussion of test interpretation with radiology: I have reviewed the radiologist's reading. Radiologist Impression: FINDINGS: No acute visible fracture or dislocation. Slightly increased acromiohumeral interval which may reflect rotator cuff pathology. Joint space alignment otherwise maintained. Soft tissues are unremarkable. Visualized portions of the chest are unremarkable. XR/XR shoulder RT min 2V IMPRESSION: 1. No acute visible fracture or dislocation. 2. Slightly increased acromiohumeral interval which may reflect rotator cuff pathology. Discharge Plan Discharge Clinical Impression: Acute shoulder pain Patient Disposition: Home, Self-Care Instructions: Shoulder Pain (ED) Additional Instructions: Please follow-up with your primary care physician tomorrow. If you have any worsening or new symptoms, please return to the emergency room or call 911 Prescriptions: New ibuprofen 600 mg tablet 600 mg PO TID PRN (Reason: pain) Qty: 14 0RF Rx Instructions: Do not use with meloxicam No Action amlodipine 5 mg tablet 5 mg PO BID Qty: 180 3RF mirtazapine 15 mg tablet 15 mg PO BEDTIME lidocaine 5 % adhesive patch,medicated 1 patch topical DAILY Qty: 15 0RF Rx Instructions: leave on most painful area for up to 12 hrs ondansetron 4 mg tablet,disintegrating 4 mg PO Q8H PRN (Reason: nausea and vomiting) Qty: 10 0RF sertraline 100 mg tablet 100 mg PO DAILY albuterol sulfate 90 mcg/actuation HFA aerosol inhaler 2 puff inhalation Q6H PRN (Reason: shortness of breath or wheezing) Qty: 6.7 0RF meloxicam 15 mg tablet 15 mg PO DAILY 7 Days Qty: 7 0RF sertraline 25 mg tablet 25 mg PO DAILY Citrucel 500 mg tablet 500 mg PO DAILY Qty: 90 2RF Rx Instructions: take it with full glass of water methylphenidate HCl [Concerta] 36 mg tablet extended release 24hr 36 mg PO QAM pantoprazole 40 mg tablet,delayed release (DR/EC) 40 mg PO DAILY@0630 Qty: 90 2RF sennosides [senna] 8.6 mg tablet 17.2 mg PO BEDTIME Qty: 60 3RF Print Language: Martiniquais
[2024-02-18 22:08] VITALS: BP 139/86; PULSE 68; RESP 16; TEMP 36.8; O2SAT 98
[2024-02-19] MEDS: Ketorolac Tromethamine 60 MG/2 ML VIAL IM (04:53)
[2024-02-19 05:07] VITALS: BP 131/81; PULSE 60; RESP 16; TEMP 36.6; O2SAT 99
== END 2024-02-19 05:07 | disposition home or self-care (01) ==
PROVIDERS: Emergency Provider Emergency Medicine; PCP Internal Medicine
DX: M25.511 Pain in right shoulder (principal)
CPT/HCPCS: 73030; 96372; 99283; 99284; J1885

== ENCOUNTER 2024-02-27 14:40 | Outpatient (AMB) | payer OTHER, SELFPAY ==
--- NOTE | 2024-02-27 14:54 | AM.OFFWIN_ITS ---
Intake Vital Signs 02/27/24 15:02 Height 5 ft 3 in BP 132/82 Blood Pressure Location Rt brachial Position Sitting Pulse 82 Pulse Source Pulse Oximeter Temp 98.4 F Temp Source Oral Pulse Oximetry (%) 98 Intake Visit Reasons: EST/ sore throat(lobby masked) Intake Note: pt is here for sore throat and ear pain Patient Tobacco Use Status: Never used Tobacco Allergies [place] And Derivatives [CITRUS] Allergy (Intermediate, Verified 02/27/24 15:03) hives shellfish derived [SHELLFISH DERIVED] Allergy (Intermediate, Verified 02/27/24 15:03) HIVES SWOLLEN FACE No Known Drug Allergies Allergy (Unknown, Verified 02/27/24 15:03) none SEAFOOD Allergy (Severe, Uncoded 02/18/24 19:12) ANGIOEDEMA Do you need a note to return to daycare/school/sports/work: No HPI HPI Comments History of Present Illness Details 28 y/o female patient who presents to [facility] in clinic with c/o URI symptoms. [facility] Medical History Sessile serrated polyp of colon Family history of systemic lupus erythematosus Polyarthralgia Depression Essential hypertension Impaired fasting glucose Mid back pain on left side Insomnia Vitamin D deficiency Gastric ulcer Esophagitis Heartburn Lumbago with sciatica, left side Blurred vision, bilateral Obesity (BMI 30-39.9) Surgical History Hx of esophagogastroduodenoscopy Hx of colonoscopy Family History Father History of renal dialysis Chronic kidney disease (CKD) Substance use disorder Mental health disorder Mother Substance use disorder Mental health disorder Brother Mental health disorder Brother Mental health disorder Brother Mental health disorder Brother Mental health disorder Sister Mental health disorder Sister Mental health disorder Paternal Aunt Crohn's disease Social History Household Members: Family and Other Household Members Other:: Aunt Housing: Apartment Are you a primary caretaker resort to a significant other at home: No Do you presently have visiting nurse or other home services: No Alcohol intake: never Patient Tobacco Use Status: Never used Tobacco e-Cigarette/Vaping Use: Former Use Second Hand Smoke Exposure: Yes Advance Directives Date on File: 08/26/22 service: No Current occupational status: employed 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 [employer] Sexual orientation: Lesbian/Lomas/Homosexual Cognitive needs: No Hearing needs: No Vision needs: No Female Reproductive History Menstrual Age of Menarche: 13 Review of Systems Const All systems reviewed & are unremarkable except as noted in HPI and below Physical Exam Vital Signs: Last Vital Signs Temp 98.4 F 02/27/24 15:02 Pulse 82 02/27/24 15:02 BP 132/82 02/27/24 15:02 Pulse Ox 98 02/27/24 15:02 Const General: comfortable and no acute distress Nutritional Appearance: obese Orientation/consciousness: patient oriented x3 HEENT Head: Yes normocephalic Ears: external ears normal and TM's normal bilaterally General nose exam: Normal nasal mucous membranes and turbinates present and No nasal discharge present Face and sinus: Yes sinuses nontender Mouth: moist mucous membranes Throat: Yes posterior oropharynx normal Resp Effort & Inspection: normal respiratory effort and able to speak in complete sentences Auscultation: clear to auscultation bilaterally, no crackles, no rales, no rhonchi and no wheezes Cardio Rate: regular rate Rhythm: regular rhythm Neuro General: patient oriented x3, gait normal and moves all extremities Psych Speech and movement: Normal speech and movement present Assessment & Plan Assessment & Plan (1) Upper respiratory infection: Code(s): J06.9 - Acute upper respiratory infection, unspecified Qualifiers: Pharyngitis/tonsillitis etiology: unspecified etiology URI type: acute pharyngitis Qualified Code(s): J02.9 - Acute pharyngitis, unspecified Plan: - OTC remedies - Rest - Acetaminophen for pain relief Medications: New cetirizine (Zyrtec) 10 mg PO DAILY PRN 30 tabs 0RF allergy symptoms J02.9 - Acute pharyngitis, unspecified benzonatate 100 mg PO TID 30 caps 0RF cough J02.9 - Acute pharyngitis, unspecified Coding Level of Care Code Est Pt Level 3 (74539) Diagnoses Acute pharyngitis, unspecified etiology J02.9 Pharyngitis/tonsillitis etiology: unspecified etiology URI type: acute pharyngitis Time Spent (min) 15
[2024-02-27 15:02] VITALS: BP 132/82; PULSE 82; TEMP 36.9; O2SAT 98
== END 2024-02-27 15:59 | disposition home or self-care (01) ==
PROVIDERS: PCP Internal Medicine; Visit Provider Nurse Practitioner Family
DX: J02.9 Acute pharyngitis, unspecified (principal)
CPT/HCPCS: 99213

== ENCOUNTER 2024-04-13 10:35 | Outpatient (AMB) | payer MEDICAID, SELFPAY ==
--- NOTE | 2024-04-13 10:42 | A.OFFVIS_ITS ---
Vital Signs 04/13/24 10:46 Height 5 ft 3 in Weight 251 lb BMI 44.5 BP 123/70 Blood Pressure Location Lt brachial Position Sitting Pulse 80 Intake Visit Reasons: 3 month follow up Intake Note: Patient follow up for heartburn Patient cc: Nauseas in the morning, abdominal pain with bloating, heartburn with burning sensation on and off, between diarrhea and constipation and also some difficulty swallowing. 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 Patient was also encouraged to avoid dietary triggers and late night snacking. Staying upright for minimum 3 hours after meals discussed with patient. Patient was encouraged to lose weight. Hepatic steatosis found on ultrasound. Patient had normal liver enzymes. Continue senna patient was encouraged to increase fluid intake and activity to promote better bowel motility. I will see have any 3 months, sooner on as needed basis. Patient is agreeable to this plan and verbalizes understanding of instructions. She was given the opportunity to ask questions and all questions answered. ? Thank you for allowing me to participate in her care Medications Refilled pantoprazole 40 mg PO DAILY@0630 90 tabs 2RF sennosides (senna) 17.2 mg (2 x 8.6 mg) PO BEDTIME 60 tabs 3RF constipation Discontinued sucralfate Discontinued Reason: Patient no longer taking 1 g PO BID 180 tabs 2RF R10.13 TODAY'S VISIT: Patient is here today for follow-up. Patient reports that since last time he was in the office he has been having ups and Downs. Sometimes he is feeling better and sometimes he continues to have epigastric pain postprandially. Occasional dyspepsia with occasional dysphagia without odynophagia. Frequent abdominal bloating. No dietary changes. Patient on his hormone therapy as needs to be evaluated that by Cardiology. Patient reports that he is taking pantoprazole every morning symptoms suppress in the 1st part of the day, however towards the end of the day he reports epigastric discomfort and dyspepsia. Patient is taking Senokot every day, however feels like he does not empty his bowels completely. Patient denies any melena, hematochezia. Denies any other GI concerning symptom [facility] Medical History Sessile serrated polyp of colon Family history of systemic lupus erythematosus Polyarthralgia Depression Essential hypertension Impaired fasting glucose Mid back pain on left side Insomnia Vitamin D deficiency Gastric ulcer Esophagitis Heartburn Lumbago with sciatica, left side Blurred vision, bilateral Obesity (BMI 30-39.9) Surgical History Hx of esophagogastroduodenoscopy Hx of colonoscopy Family History Father History of renal dialysis Chronic kidney disease (CKD) Substance use disorder Mental health disorder Mother Substance use disorder Mental health disorder Brother Mental health disorder Brother Mental health disorder Brother Mental health disorder Brother Mental health disorder Sister Mental health disorder Sister Mental health disorder Paternal Aunt Crohn's disease Social History Household Members: Family and Other Household Members Other:: Aunt Housing: Apartment Are you a primary date night caregiver to a significant other at home: No Do you presently have visiting nurse or other home services: No Alcohol intake: never Patient Tobacco Use Status: Never used Tobacco e-Cigarette/Vaping Use: Former Use Second Hand Smoke Exposure: Yes Advance Directives Date on File: 08/26/22 service: No Current occupational status: employed 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[employer] Sexual orientation: Lesbian/Lomas/Homosexual Cognitive needs: No Hearing needs: No Vision needs: No Female Reproductive History Menstrual Age of Menarche: 13 Review of Systems Const Denies weight gain and Denies weight loss ENT Reports no additional complaints, Reports dysphagia (Occasional) and Denies odynophagia Card Reports no additional complaints Resp Reports no additional complaints GI Reports abdominal pain (Epigastric), Denies belching, Denies melena, Reports bloating, Denies change in bowel habits, Reports constipation, Reports dysphagia (Occasional), Denies excessive flatus, Denies dyspepsia, Reports heartburn, Denies diarrhea, Denies loose stools, Denies nausea, Denies odynophagia and Denies vomiting Musc Reports no additional complaints Neuro Reports no additional complaints Psych Reports no additional complaints Endo Reports no additional complaints Physical Exam Vital Signs: Last Vital Signs Pulse 80 04/13/24 10:46 BP 123/70 04/13/24 10:46 BMI result Body Mass Index 44.5 Const General: healthy appearing and no acute distress Nutritional Appearance: obese Orientation/consciousness: patient oriented x3 Resp Effort & Inspection: normal respiratory effort, able to speak in complete sentences, no tracheal deviation and symmetric chest movement Auscultation: clear to auscultation bilaterally Cardio Rate: regular rate GI Inspection: Yes normal to inspection, No distended and Yes obesity Palpation (GI): Soft to palpation, not firm, nontender and No hepatosplenomegaly present Auscultation: normal bowel sounds General: Yes no CVA tenderness Back/Spine/Pelvis Back: no CVA tenderness Skin General skin exam: elasticity normal, turgor normal and dry skin Neuro General: patient oriented x3 Psych Appearance: grossly normal Mental Status: mental status grossly normal Assessment & Plan Assessment & Plan (1) Heartburn: Code(s): R12 - Heartburn Category: Medical (2) Postprandial epigastric pain: Code(s): R10.13 - Epigastric pain (3) Postprandial diarrhea: Code(s): K52.9 - Noninfective gastroenteritis and colitis, unspecified (4) Hepatic steatosis: Code(s): K76.0 - Fatty (change of) liver, not elsewhere classified (5) Constipation: Code(s): K59.00 - Constipation, unspecified Qualifiers: Constipation type: slow transit constipation Qualified Code(s): K59.01 - Slow transit constipation Plan Stop Senokot start Dulcolax. Increase fluid intake and activity to promote better bowel motility. Stop pantoprazole and start Nexium every morning half an hour before breakfast. Avoid dietary triggers and late night snacking. Staying upright for minimum 3 hours after meals discussed patient. Stressed importance of losing weight as well. Follow-up in the office in 3 months, sooner needed basis. Patient is agreeable to this plan and verbalizes understanding of instructions. He was given the opportunity to ask questions and all questions answered. Thank you for allowing me to participate in his care Medications: New bisacodyl (Dulcolax (bisacodyl)) 10 mg (2 x 5 mg) PO BEDTIME 180 tabs 4RF esomeprazole magnesium (Nexium) 40 mg PO DAILY 30 caps 5RF K21.9 - Gastro- esophageal reflux disease without esophagitis Discontinued pantoprazole Discontinued Reason: Doctor's Order 40 mg PO DAILY@0630 90 tabs 2RF sennosides (senna) Discontinued Reason: Doctor's Order 17.2 mg (2 x 8.6 mg) PO BEDTIME 60 tabs 3RF constipation Coding Level of Care Code Est Pt Level 3 (00015) Diagnoses Heartburn R12 Postprandial epigastric pain R10.13 Postprandial diarrhea K52.9 Hepatic steatosis K76.0 Slow transit constipation K59.01 Constipation type: slow transit constipation Time Spent (min) 30 Comment 20 minutes spent with patient and additional 10 minutes spent reviewing his records
[2024-04-13 10:46] VITALS: BP 123/70; PULSE 80; BMI 44.5
== END 2024-04-13 11:31 | disposition home or self-care (01) ==
PROVIDERS: PCP Internal Medicine; Visit Provider Nurse Practitioner Family
DX: R12 Heartburn (principal); K52.9 Noninfective gastroenteritis and colitis, unspecified; K76.0 Fatty (change of) liver, not elsewhere classified; K59.01 Slow transit constipation
CPT/HCPCS: 99213

== ENCOUNTER → 2024-04-13 10:35 | Outpatient (BNVA) | payer SELFPAY | PROVIDERS: PCP Internal Medicine; Visit Provider Nurse Practitioner Family | DX: R12 Heartburn (principal); R10.13 Epigastric pain; K52.9 Noninfective gastroenteritis and colitis, unspecified; K76.0 Fatty (change of) liver, not elsewhere classified; K59.01 Slow transit constipation; Z79.899 Other long term (current) drug therapy | CPT/HCPCS: 99212 ==

== ENCOUNTER 2024-04-20 06:52 | Emergency (ER) | payer OTHER, SELFPAY ==
--- NOTE | ~2024-04-20 | XR_ITS ---
EXAMINATION: XR CHEST CLINICAL INFORMATION: Cough COMPARISON: 06/23/2023 TECHNIQUE: 2 views of the chest were obtained. FINDINGS: No significant abnormality is noted involving the heart, lungs, mediastinum, bony thorax or soft tissues. XR/XR chest 2V IMPRESSION: Unremarkable examination, without interval change.
[2024-04-20 07:08] VITALS: BP 152/85; PULSE 90; RESP 18; TEMP 36.9; O2SAT 99; BMI 42.9
--- NOTE | 2024-04-20 07:41 | PC.NURSE ---
pt presents to the ER c/o cough for a couple of months with occasional pink/green colored sputum. pt reports nasal congestion and headaches as well as a possible weight gain over the past couple of months. denies any new medications. plan to obtain covid/flu/rsv swab and chest xray
--- NOTE | 2024-04-20 07:41 | ED.GENADULT ---
HPI - General Adult General Chief complaint: Upper Respiratory Symptoms Stated complaint: Diff breathing Time Seen by Provider: 04/20/24 07:19 Source: patient and RN notes reviewed Mode of arrival: ambulatory Limitations: no limitations History of Present Illness ED Provider: Mary Ibarra PA-C HPI narrative: This is a 28-year-old female, with a history of hypertension, who presents emergency department with complaints of ongoing cough x2 months. Patient states that she had had a productive cough with yellow sputum for the last 2 months. Patient states that she woke up at 3:00 a.m. and vomited once. She states that she has had intermittent fevers at home, she took Tylenol this morning. 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 She denies any headache, chest pain, abdominal pain, nausea. She denies any urinary symptoms. She does report she would 1 episode of diarrhea this morning. Denies any bloody or black stool. Denies history of asthma. She occasionally vapes, otherwise no tobacco use. No marijuana use. She states that she was seen by her doctor 2 months ago was diagnosed with pharyngitis, at that time she was given Zyrtec, and Tessalon. She denies any recent travel, surgeries, hospitalizations. No history of blood clots. She has not on control, no hormone replacement. No other complaints or concerns at this time. MD complaint: Cough Onset (ago): month(s) Radiation: non-radiation Relieving factors: none Exacerbating factors: none Associated symptoms: cough Treatments prior to arrival: none Related Data Home Medications ?Medication ?Instructions ?Recorded ?Confirmed mirtazapine 15 mg tablet 15 mg PO BEDTIME 10/22/22 09/25/23 sertraline 100 mg tablet 100 mg PO DAILY 03/19/23 09/25/23 sertraline 25 mg tablet 25 mg PO DAILY 08/18/23 09/25/23 methylphenidate HCl 36 mg 36 mg PO QAM 09/25/23 09/25/23 tablet,extended release 24 hr (Concerta) Previous Rx's ?Medication ?Instructions ?Recorded amlodipine 5 mg tablet 5 mg PO BID #180 tabs 07/03/23 lidocaine 5 % topical patch 1 patch topical DAILY #15 ea 07/25/23 albuterol sulfate 90 mcg/actuation 2 puff inhalation Q6H PRN 08/04/23 aerosol inhaler shortness of breath or wheezing #6.7 grams methylcellulose (laxative) 500 mg 500 mg PO DAILY #90 tabs 08/18/23 tablet (Citrucel) ondansetron 4 mg disintegrating 4 mg PO Q8H PRN nausea and 12/18/23 tablet vomiting #10 tabs meloxicam 15 mg tablet 15 mg PO DAILY 7 days #7 tabs 02/04/24 ibuprofen 600 mg tablet 600 mg PO TID PRN pain #14 tabs 02/19/24 benzonatate 100 mg capsule 100 mg PO TID cough #30 caps 02/27/24 cetirizine 10 mg tablet (Zyrtec) 10 mg PO DAILY PRN allergy 02/27/24 symptoms #30 tabs bisacodyl 5 mg tablet,delayed 10 mg (2 x 5 mg) PO BEDTIME #180 04/13/24 release (Dulcolax (bisacodyl)) tabs esomeprazole magnesium 40 mg 40 mg PO DAILY #30 caps 04/13/24 capsule,delayed release (Nexium) azithromycin 250 mg tablet See Rx Instructions PO .COMPLEX #6 04/20/24 tabs Allergies Allergy/AdvReac Type Severity Reaction Status Date / Time [place] And Derivatives Allergy Intermediate hives Verified 04/20/24 07:09 [CITRUS] shellfish derived Allergy Intermediate HIVES Verified 04/20/24 07:09 [SHELLFISH DERIVED] SWOLLEN FACE No Known Drug Allergies Allergy Unknown none Verified 04/20/24 07:09 SEAFOOD Allergy Severe ANGIOEDEMA Uncoded 02/18/24 19:12 Review of Systems Review of Systems: Yes all other systems are reviewed and are negative Constitutional: Constitutional: Reports as per [facility] Past Medical History Attestation statement: The following information was validated with the patient. Medical History Sessile serrated polyp of colon Family history of systemic lupus erythematosus Polyarthralgia Depression Essential hypertension Impaired fasting glucose Mid back pain on left side Insomnia Vitamin D deficiency Gastric ulcer Esophagitis Heartburn Lumbago with sciatica, left side Blurred vision, bilateral Obesity (BMI 30-39.9) Surgical History Hx of esophagogastroduodenoscopy Hx of colonoscopy Family History Family History Father History of renal dialysis Chronic kidney disease (CKD) Substance use disorder Mental health disorder Mother Substance use disorder Mental health disorder Brother Mental health disorder Brother Mental health disorder Brother Mental health disorder Brother Mental health disorder Sister Mental health disorder Sister Mental health disorder Paternal Aunt Crohn's disease Social History Social History Household Members: Family and Other Household Members Other:: Aunt Housing: Apartment Are you a primary day care home mother to a significant other at home: No Do you presently have visiting nurse or other home services: No Alcohol intake: never Patient Tobacco Use Status: Never used Tobacco Smoked in Last 30 Days: No e-Cigarette/Vaping Use: Former Use Second Hand Smoke Exposure: Yes Use of substances other than those prescribed or required for medical reasons: No Advance Directives: Yes Advance Directives on File: Yes Advance Directives Date on File: 08/26/22 Do you have a plan to hurt others: No Plan Patient : No service: No Current occupational status: employed 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 [employer] Sexual orientation: Lesbian/Lomas/Homosexual Cognitive needs: No Hearing needs: No Vision needs: No Physical Exam ED Vital Signs: Vital Signs - 24 hr 04/20/24 07:08 04/20/24 08:27 04/20/24 10:38 Temperature 98.4 F 98.4 F Pulse Rate 90 77 Respiratory Rate 18 16 Blood Pressure 152/85 H 127/83 Pulse Oximetry 99 98 Oxygen Delivery Method Room Air Room Air Room Air BMI result Body Mass Index 42.9 Const General: cooperative, comfortable and no acute distress Orientation/consciousness: patient oriented x3 Limitations: no limitations HENMT Head: Yes normal to inspection, Yes normocephalic and Yes atraumatic Ears: hearing grossly normal bilaterally and TM's normal bilaterally General nose exam: Normal external nose present Face and sinus: Yes normal facial exam Mouth: Normal oral and palatal mucosa present, oropharynx normal and moist mucous membranes Throat: Yes posterior oropharynx normal Eyes General: appearance normal, both eyes and all related structures Eyelids: Yes eyelids normal Conjunctivae: conjunctivae normal Sclerae: sclerae normal Pupils: Equal, round and reactive pupils present EOM: EOMs intact bilaterally Neck Neck: Yes normal visual inspection, Yes full ROM and Yes no lymphadenopathy Lymphatic: no lymphadenopathy noted Chest Chest palpation & inspection: normal inspection of the chest Resp Effort & Inspection: normal respiratory effort and able to speak in complete sentences Auscultation: clear to auscultation bilaterally, no crackles, no rales, no rhonchi and no wheezes Cardio Rate: regular rate Rhythm: regular rhythm Heart sounds: S1 normal heart sound present and S2 normal heart sound present GI Other: Abdomen is soft, nontender, nondistended Inspection: Yes normal to inspection Skin General skin exam: no rashes or lesions noted Trauma: no lacerations or abrasions Wounds: no wounds Neuro General: patient oriented x3 and moves all extremities Cranial nerves: Yes Equal, round and reactive pupils present Extrem General: Yes normal to inspection Right upper extremity: normal to inspection Left upper extremity: normal to inspection Right lower extremity: normal to inspection Left lower extremity: normal to inspection Course Reevaluation(s) Reevaluation #1: Viral swabs negative, awaiting chest x-ray report. Time: 09:12 Reevaluation #2: Chest x-ray returns, unremarkable. Discussed findings with patient. Given symptoms have been prolonged for the last 2 months, will trial with course of azithromycin. Her vital signs remained stable. Under no acute respiratory distress. Lungs are clear to auscultation bilaterally. Given return precautions. Will follow-up with PCP. Time: 11:09 Medical Decision Making Medical Decision Making [facility] Narrative: This is a 28-year-old female, with a history of hypertension, who presents emergency department with complaints of ongoing productive cough x2 months, worsening over the last week. Her arrival, patient mildly hypertensive at 152/85, all other vital signs within normal limits. Lungs are clear to auscultation bilaterally, and she has under no acute distress. Differential diagnoses include viral URI, COVID, flu, RSV, pneumonia. Plan: Viral swabs, chest x-ray Differential Diagnosis Differential Diagnoses: The differential diagnosis associated with the presentation includes See above Lab Data [facility] Lab Attestation statement: I reviewed the patient's lab results. Negative flu, RSV, COVID Labs: Lab Results 04/20/24 Range/Units 07:29 Influenza Type A (PCR) NEGATIVE (Negative) Influenza Type B (PCR) NEGATIVE (Negative) RSV RNA Qual (PCR) NEGATIVE (Negative) SARS-CoV-2 RNA (RT-PCR) NEGATIVE (Negative) Radiology Impression Discussion of test interpretation with radiology: I have reviewed the radiologist's reading. Radiologist Impression: EXAMINATION: XR CHEST CLINICAL INFORMATION: Cough COMPARISON: 06/23/2023 TECHNIQUE: 2 views of the chest were obtained. FINDINGS: No significant abnormality is noted involving the heart, lungs, mediastinum, bony thorax or soft tissues. XR/XR chest 2V IMPRESSION: Unremarkable examination, without interval change. Dictated By: Sung Muir MD Discharge Plan Discharge Clinical Impression: Upper respiratory infection Qualifiers: URI type: unspecified viral URI Qualified Code(s): J06.9 - Acute upper respiratory infection, unspecified Patient Disposition: Home, Self-Care Instructions: Upper Respiratory Infection (ED) Additional Instructions: You were seen in the emergency department due to ongoing cough. Because you have been sick for 2 months, will trial with course of antibiotics. Please take full course of antibiotics even if your symptoms improve. Drink plenty of fluids and get plenty of rest. If any new or worsening symptoms occur including but not limited to chest pain, shortness of breath, please return for re-evaluation. Follow-up with your primary care physician regarding this visit. Call today to make an appointment. Prescriptions: New azithromycin 250 mg tablet See Rx Instructions PO .COMPLEX Qty: 6 0RF Rx Instructions: For 250 mg dose pack: take 500 mg today (day 1), then 250 mg for 4 days (days 2-5) No Action amlodipine 5 mg tablet 5 mg PO BID Qty: 180 3RF mirtazapine 15 mg tablet 15 mg PO BEDTIME lidocaine 5 % adhesive patch,medicated 1 patch topical DAILY Qty: 15 0RF Rx Instructions: leave on most painful area for up to 12 hrs ondansetron 4 mg tablet,disintegrating 4 mg PO Q8H PRN (Reason: nausea and vomiting) Qty: 10 0RF ibuprofen 600 mg tablet 600 mg PO TID PRN (Reason: pain) Qty: 14 0RF Rx Instructions: Do not use with meloxicam sertraline 100 mg tablet 100 mg PO DAILY cetirizine [Zyrtec] 10 mg tablet 10 mg PO DAILY PRN (Reason: allergy symptoms) Qty: 30 0RF benzonatate 100 mg capsule 100 mg PO TID Qty: 30 0RF albuterol sulfate 90 mcg/actuation HFA aerosol inhaler 2 puff inhalation Q6H PRN (Reason: shortness of breath or wheezing) Qty: 6.7 0RF meloxicam 15 mg tablet 15 mg PO DAILY 7 Days Qty: 7 0RF sertraline 25 mg tablet 25 mg PO DAILY Citrucel 500 mg tablet 500 mg PO DAILY Qty: 90 2RF Rx Instructions: take it with full glass of water bisacodyl [Dulcolax (bisacodyl)] 5 mg tablet,delayed release (DR/EC) 10 mg PO BEDTIME Qty: 180 4RF esomeprazole magnesium [Nexium] 40 mg capsule,delayed release(DR/EC) 40 mg PO DAILY Qty: 30 5RF methylphenidate HCl [Concerta] 36 mg tablet extended release 24hr 36 mg PO QAM Stand Alone Forms: Work/School Release Print Language: Polish
[2024-04-20 09:09] LABS: Influenza A PCR NEGATIVE (Negative); Influenza B PCR NEGATIVE (Negative); Resp Syncy Virus RNA Qual PCR NEGATIVE (Negative); SARS COV2 PCR INHOUSE NEGATIVE (Negative)
[2024-04-20 10:38] VITALS: BP 127/83; PULSE 77; RESP 16; TEMP 36.9; O2SAT 98
[2024-04-20 11:30] VITALS: BP 127/83; PULSE 77; RESP 16; TEMP 36.9; O2SAT 98
== END 2024-04-20 11:31 | disposition home or self-care (01) ==
PROVIDERS: Emergency Provider Student in an Organized Health Care Education/Training Program; PCP Internal Medicine
DX: J06.9 Acute upper respiratory infection, unspecified (principal); R06.02 Shortness of breath; R05.9 Cough, unspecified; Z03.818 Encounter for observation for suspected exposure to other biological agents ruled out; Z79.899 Other long term (current) drug therapy
CPT/HCPCS: 0241U; 71046; 99283; 99284

== ENCOUNTER 2024-04-28 17:53 | Emergency (ER) | payer OTHER, SELFPAY ==
--- NOTE | ~2024-04-28 | CT_ITS ---
EXAMINATION: CT HEAD WITHOUT CONTRAST CLINICAL INFORMATION: Severe headache for 4 days COMPARISON: 05/21/2023 TECHNIQUE: Contiguous axial imaging was performed from the skull base to vertex without intravenous administration of contrast. This CT examination was performed using dose optimization techniques as appropriate, variously including the following: *Automated exposure control *Adjustment of mA and/or kV according to patient size (this includes techniques or standardized protocols for targeted exams where dose is matched to indication/reason for exam; i.e. extremities or head) *Use of iterative reconstruction technique DLP: 601 mGy-cm FINDINGS: There is no evidence of acute intracranial hemorrhage or territorial infarction. No abnormal mass-effect or midline shift is seen. Gar to white matter differentiation is well preserved. No extra-axial fluid collections are identified. The ventricles are normal in size. There is no abnormal attenuation within the brain parenchyma. The osseous structures and soft tissues are normal. The mastoid air cells are well-aerated. There is marked mucosal thickening of the right maxillary sinus. Less dominant mucosal thickening of the left sphenoid sinus. Rightward deviation of the nasal septum is noted. CT/CT head/brain wo IV con IMPRESSION: No acute intracranial pathology. Paranasal sinus disease as described above.
[2024-04-28 18:26] VITALS: BP 184/91; PULSE 86; RESP 16; TEMP 37; O2SAT 97; BMI 44.7
--- NOTE | 2024-04-28 18:32 | ED_ITS ---
HPI - Headache General Chief Complaint: Headache Stated Complaint: headache, feels like its going into back Time Seen by Provider: 04/29/24 00:25 Related Data Home Medications ?Medication ?Instructions ?Recorded ?Confirmed mirtazapine 15 mg tablet 15 mg PO BEDTIME 10/22/22 09/25/23 sertraline 100 mg tablet 100 mg PO DAILY 03/19/23 09/25/23 sertraline 25 mg tablet 25 mg PO DAILY 08/18/23 09/25/23 methylphenidate HCl 36 mg 36 mg PO QAM 09/25/23 09/25/23 tablet,extended release 24 hr (Concerta) Previous Rx's ?Medication ?Instructions ?Recorded amlodipine 5 mg tablet 5 mg PO BID #180 tabs 07/03/23 lidocaine 5 % topical patch 1 patch topical DAILY #15 ea 07/25/23 albuterol sulfate 90 mcg/actuation 2 puff inhalation Q6H PRN 08/04/23 aerosol inhaler shortness of breath or wheezing #6.7 grams methylcellulose (laxative) 500 mg 500 mg PO DAILY #90 tabs 08/18/23 tablet (Citrucel) ondansetron 4 mg disintegrating 4 mg PO Q8H PRN nausea and 12/18/23 tablet vomiting #10 tabs meloxicam 15 mg tablet 15 mg PO DAILY 7 days #7 tabs 02/04/24 ibuprofen 600 mg tablet 600 mg PO TID PRN pain #14 tabs 02/19/24 benzonatate 100 mg capsule 100 mg PO TID cough #30 caps 02/27/24 cetirizine 10 mg tablet (Zyrtec) 10 mg PO DAILY PRN allergy 02/27/24 symptoms #30 tabs bisacodyl 5 mg tablet,delayed 10 mg (2 x 5 mg) PO BEDTIME #180 04/13/24 release (Dulcolax (bisacodyl)) tabs esomeprazole magnesium 40 mg 40 mg PO DAILY #30 caps 04/13/24 capsule,delayed release (Nexium) azithromycin 250 mg tablet See Rx Instructions PO .COMPLEX #6 04/20/24 tabs ketorolac 10 mg tablet 10 mg PO Q8H PRN pain #10 tabs 04/29/24 metoclopramide HCl 5 mg tablet 5 mg PO .T.i.d. PRN nausea and 04/29/24 (Reglan) vomiting #10 tabs Allergies Allergy/AdvReac Type Severity Reaction Status Date / Time [place] And Derivatives Allergy Intermediate hives Verified 04/28/24 18:29 [CITRUS] shellfish derived Allergy Intermediate HIVES Verified 04/28/24 18:29 [SHELLFISH DERIVED] SWOLLEN FACE No Known Drug Allergies Allergy Unknown none Verified 04/28/24 18:29 SEAFOOD Allergy Severe ANGIOEDEMA Uncoded 04/28/24 18:29 PMFSH Past Medical History Medical History Sessile serrated polyp of colon Family history of systemic lupus erythematosus Polyarthralgia Depression Essential hypertension Impaired fasting glucose Mid back pain on left side Insomnia Vitamin D deficiency Gastric ulcer Esophagitis Heartburn Lumbago with sciatica, left side Blurred vision, bilateral Obesity (BMI 30-39.9) Surgical History Hx of esophagogastroduodenoscopy Hx of colonoscopy Family History Family History Father History of renal dialysis Chronic kidney disease (CKD) Substance use disorder Mental health disorder Mother Substance use disorder Mental health disorder Brother Mental health disorder Brother Mental health disorder Brother Mental health disorder Brother Mental health disorder Sister Mental health disorder Sister Mental health disorder Paternal Aunt Crohn's disease Social History Social History Household Members: Family and Other Household Members Other:: Aunt Housing: Apartment Are you a primary healthcare administration internship to a significant other at home: No Do you presently have visiting nurse or other home services: No Alcohol intake: never Patient Tobacco Use Status: Never used Tobacco Smoked in Last 30 Days: No e-Cigarette/Vaping Use: Former Use Second Hand Smoke Exposure: Yes Use of substances other than those prescribed or required for medical reasons: No Advance Directives: Yes Advance Directives on File: Yes Advance Directives Date on File: 08/26/22 service: No Current occupational status: employed 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 Patient is a 28-year-old presenting to the emergency department with complaint of headache for 4 days, states pain radiates down into neck. Denies fevers. Denies fall or other trauma. Complains of intermittent blurred vision and photophobia. Associated nausea and vomiting. Using Excedrin without relief. Medications Administered Discontinued Medications Generic Name Dose Route Start Last Admin Trade Name Freq PRN Reason Stop Dose Admin Diphenhydramine HCl 25 mg 04/29/24 00:42 04/29/24 01:18 Diphenhydramine Hcl 50 Mg/Ml Vial IVPUSH 04/29/24 00:43 25 mg ONCE ONE Administration Sodium Chloride 1,000 mls @ 999 mls/hr 04/29/24 00:39 04/29/24 01:18 Ns IVCONT 04/29/24 01:39 999 mls/hr .Q1H1M ONE Administration Ketorolac Tromethamine 30 mg 04/29/24 00:39 04/29/24 01:17 Ketorolac Tromethamine 30 Mg/Ml Vial IVPUSH 04/29/24 00:40 30 mg ONCE ONE Administration Metoclopramide HCl 10 mg 04/29/24 00:39 04/29/24 01:18 Metoclopramide Hcl 10 Mg/2 Ml Vial IVPUSH 04/29/24 00:40 10 mg ONCE ONE Administration Medical Decision Making Medical Decision Making MDM Narrative: -patient receiving IV fluids, Toradol, ketorolac, Benadryl. Overall patient states that she is feeling better. -my interpretation of head CT: No intracranial abnormality -sign-out given to my colleague Dr. Gayle Differential Diagnosis Differential Diagnoses: The differential diagnosis associated with the presentation includes (Tension headache, migraine headache, intracranial malignancy, intracranial bleed) Admission/Observation Consideration of admission/observation: Escalation of care including admission/observation considered (Given patient's severity of symptoms and arrival, observation was considered) Critical Care Time Critical Care Time Critical Care Time: Yes Total Critical Care Time: 35 Attestation: I have personally provided critical care time. Time includes review of lab data, radiology results, discussion with consultants, and monitoring for potential decompensation. Intervention performed as documented. Discharge Plan Discharge Clinical Impression: Headache, migraine Patient Disposition: Home, Self-Care Instructions: Migraine Headache (ED) Additional Instructions: Please follow-up with your primary care physician tomorrow. If you have any worsening or new symptoms, please return to the emergency room or call 911 Prescriptions: New ketorolac 10 mg tablet 10 mg PO Q8H PRN (Reason: pain) Qty: 10 0RF Rx Instructions: Do not use this medication with naproxen, ibuprofen or any NSAIDs, only Tylenol if needed metoclopramide HCl [Reglan] 5 mg tablet 5 mg PO .T.i.d. PRN (Reason: nausea and vomiting) Qty: 10 0RF Rx Instructions: Take together with Toradol p.r.n. migraine No Action amlodipine 5 mg tablet 5 mg PO BID Qty: 180 3RF mirtazapine 15 mg tablet 15 mg PO BEDTIME lidocaine 5 % adhesive patch,medicated 1 patch topical DAILY Qty: 15 0RF Rx Instructions: leave on most painful area for up to 12 hrs ondansetron 4 mg tablet,disintegrating 4 mg PO Q8H PRN (Reason: nausea and vomiting) Qty: 10 0RF ibuprofen 600 mg tablet 600 mg PO TID PRN (Reason: pain) Qty: 14 0RF Rx Instructions: Do not use with meloxicam azithromycin 250 mg tablet See Rx Instructions PO .COMPLEX Qty: 6 0RF Rx Instructions: For 250 mg dose pack: take 500 mg today (day 1), then 250 mg for 4 days (days 2-5) sertraline 100 mg tablet 100 mg PO DAILY cetirizine [Zyrtec] 10 mg tablet 10 mg PO DAILY PRN (Reason: allergy symptoms) Qty: 30 0RF benzonatate 100 mg capsule 100 mg PO TID Qty: 30 0RF albuterol sulfate 90 mcg/actuation HFA aerosol inhaler 2 puff inhalation Q6H PRN (Reason: shortness of breath or wheezing) Qty: 6.7 0RF meloxicam 15 mg tablet 15 mg PO DAILY 7 Days Qty: 7 0RF sertraline 25 mg tablet 25 mg PO DAILY Citrucel 500 mg tablet 500 mg PO DAILY Qty: 90 2RF Rx Instructions: take it with full glass of water bisacodyl [Dulcolax (bisacodyl)] 5 mg tablet,delayed release (DR/EC) 10 mg PO BEDTIME Qty: 180 4RF esomeprazole magnesium [Nexium] 40 mg capsule,delayed release(DR/EC) 40 mg PO DAILY Qty: 30 5RF methylphenidate HCl [Concerta] 36 mg tablet extended release 24hr 36 mg PO QAM Print Language: Finnish
[2024-04-28 21:38] VITALS: BP 145/86; PULSE 74; RESP 18; TEMP 36.4; O2SAT 96
--- OUTSIDE RECORDS SUMMARY | 2024-04-28 21:40 | XMS_ITS | Continuity of Care Document ---
Author Organization [facility] ter Address [address] [place] [address]- Care Team Providers Care Awning Hanger Helper Name Role Phone Jazmyne HENNESSY, Gauri Mcneil Primary Care Physician Encounter [facility] [place] Date(s): 09/23/21 - 09/24/[address] [address]- Encounter Diagnosis COVID-19(Final) - 09/24/21 Discharge Disposition: A-D/C Home Attending Physician: Presley HENNESSY, Iris Mendoza Admitting Physician: Iris Sherwood MD Referring Physician: Not on Staff, Referring MD Allergies, Adverse Reactions, Alerts Substance Reaction Severity Status shellfish Active [place] Active Medications famotidine 10 mg oral tablet 1 tablet = 10 mg, By Mouth, 2 times a day, 1 hour before meals, # 60 tablet, 0 Refills, Maintenance, 03/20/21 20:52:00 EDT, Tablet, Partial fill upon patient request if the prescription is for a schedule II opioid drug. Start Date: 03/20/21 Stop Date: 04/19/21 Status: Ordered Fluoxetine = 20 mg, By Mouth, Daily, 0 Refills, Maintenance, 09/24/21 0:01:00 EST, Partial fill upon patient request if the prescription is for a schedule II opioid drug. Start Date: 09/24/21 Status: Ordered prazosin 5 mg oral capsule 5 mg, 1, capsule, By Mouth, Daily, Refills 0, Maintenance, 09/24/21 0:02:00 EST, Partial fill upon patient request if the prescription is for a schedule II opioid drug. Start Date: 09/24/21 Status: Ordered Problem List Condition Effective Dates Status Health Status Inform ant Obese class II(Confirmed) Active Results Radiology Reports * Exam Date Time Procedure Performing Provider Status 09/24/21 12:54 AM Chest Single Frontal View Heather Brown; Auth (Verified) Notes: (Chest Single Frontal View) Reason For Exam: Fever RESULT: Chest Single Frontal View Chest Single Frontal View INDICATION/CLINICAL QUESTION: Shortness of breath. Cough. TECHNIQUE: Single PA view. COMPARISON: None.. FINDINGS: LINES AND TUBES: Absent. LUNGS AND PLEURA: RIGHT CHEST: The lung is clear and there is no effusion. LEFT CHEST: The lung is clear there is no effusion. HEART AND MEDIASTINAL CONTOURS: Normal. BONES AND SOFT TISSUES: No acute abnormality.. IMPRESSION: 1. No active disease in chest. WSN: [id number] Ordering Physician: Shahrzad Schneider Dictated By: Avery Vieira MD Dictated Date/Time: 09/24/21 7:15 am Reviewed By: Avery Vieira MD Signed By: Avery Vieira MD Signed Date/Time: 09/24/21 7:15 am Transcribed By: CAITLIN Transcribed Date/Time: 09/24/21 7:14 am Vital Signs Most recent to oldest [Reference Range]: 1 2 3 Height 160 cm (09/24/21 4:24 AM) 160 cm (09/24/21 2:09 AM) 160 cm (09/24/21 2:06 AM) Weight 100 kg (09/24/21 4:24 AM) 100 kg (09/24/21 2:09 AM) 100 kg (09/24/21 2:06 AM) Oxygen Saturation [94-100 %] 100 % (09/24/21 8:31 AM) 100 % (09/24/21 7:59 AM) 100 % (09/24/21 4:24 AM) Pulse Rate [55-90 bpm] 63 bpm (09/24/21 8:31 AM) 70 bpm (09/24/21 7:59 AM) 68 bpm (09/24/21 4:24 AM) Body Mass Index [18.5-24.99] 39.06 *>HHI* (09/24/21 4:24 AM) 39.06 *>HHI* (09/24/21 2:06 AM) 39.06 *>HHI* (09/23/21 11:52 PM) Blood Pressure [90-138/55-84 mm Hg] 139/78mm Hg *H* (09/24/21 7:59 AM) 132/79mm Hg (09/24/21 4:24 AM) 127/72mm Hg (09/24/21 2:06 AM) Respiratory Rate [16-30 br/min] 18 br/min (09/24/21 8:31 AM) 18 br/min (09/24/21 7:59 AM) 18 br/min (09/24/21 4:24 AM) Temperature [96.8-100.4 DegF] 97.8 DegF (09/24/21 7:59 AM) 97.8 DegF (09/24/21 4:24 AM) 98.5 DegF (09/24/21 2:06 AM) Mode of Delivery (Oxygen) Room air (09/24/21 8:31 AM) Room air (09/24/21 7:59 AM) Room air (09/24/21 4:24 AM) Blood pressure sites Arm, right (09/24/21 7:59 AM) Arm, left (09/24/21 4:24 AM) Arm, left (09/24/21 2:06 AM) Temperature Route Oral (09/24/21 7:59 AM) Oral (09/24/21 4:24 AM) Oral (09/24/21 2:06 AM) Dry Weight 100 kg (09/24/21 4:24 AM) 100 kg (09/24/21 2:09 AM) 100 kg (09/24/21 2:06 AM) Social History Social History Type Response Tobacco Use: vape. Sex
--- OUTSIDE RECORDS SUMMARY | 2024-04-28 21:40 | XMS_ITS | Continuity of Care Document ---
Author Organization [facility] ter Address [address] [place] [id number]- Care Team Providers Care Supervisor Toy Parts Former Name Role Phone Jazmyne HENNESSY, Gauri Mcneil Primary Care Physician [place] [facility] [place] 01/21/22 - 01/22/[address] [address]- Encounter Diagnosis Viral syndrome(Final) - 01/22/22 Discharge Disposition: A-D/C Home Attending Physician: Neal Asher MD Admitting Physician: Neal Asher MD Referring Physician: Not on Staff, Referring MD Allergies, Adverse Reactions, Alerts Substance Reaction Severity Status shellfish Active [place] Active Immunizations Given and Recorded Vaccine Date Status Refusal Reason tetanus/diphtheria/pertussis, acel(Tdap) 01/01/22 Given Medications acetaminophen 325 mg oral capsule 2 capsule = 650 mg, By Mouth, Every 6 hours, PRN as needed for fever, # 90 capsule, 0 Refills, Acute 01/25/22 9:45:00 EDT, 01/22/22 9:26:00 EDT, Capsule, [id number], Partial fill upon patientrequest if the prescription is for a schedule II op... Start Date: 01/22/22 Stop Date: 01/25/22 Status: Ordered Acetaminophen Tablet 650 mg, Tablet, By Mouth, Once, STAT, 01/22/22 8:23:00 EDT, Stop date 01/22/22 8:23:00 EDT Start Date: 01/22/22 Stop Date: 01/22/22 Status: Completed famotidine 10 mg oral tablet 1 tablet = 10 mg, By Mouth, 2 times a day, 1 hour before meals, # 60 tablet, 0 Refills, Maintenance, 03/20/21 20:52:00 EDT, Tablet, Partial fill upon patient request if the prescription is for a schedule II opioid drug. Start Date: 03/20/21 Stop Date: 04/19/21 Status: Ordered FLUoxetine 20 mg oral capsule 20 mg, By Mouth, Daily, # 30 capsule, Refills 0, Tot. Refills 0, Maintenance, 01/07/22 9:56:00 EDT,Route to Pharmacy Electronically, [facility]pharmacy #[id number], Partial fill upon patient request if the prescription is for a schedule II opioid drug., 160, cm,... Start Date: 01/07/22 Stop Date: 02/06/22 Status: Ordered ondansetron 4 mg oral tablet, disintegrating 1 tablet = 4 mg, By Mouth, Every 8 hours, PRN Nausea & Vomiting, # 10 tablet, 0 Refills, Acute 01/25/22 10:00:00 EDT, 01/22/22 9:25:00 EDT, Tablet, [id number], Partial fill upon patient request if the prescription is for a schedule II opioid d... Start Date: 01/22/22 Stop Date: 01/25/22 Status: Ordered prazosin 5 mg oral capsule 5 mg, 1, capsule, By Mouth, Daily, Refills 0, Maintenance, 09/24/21 0:02:00 EST, Partial fill upon patient request if the prescription is for a schedule II opioid drug. Start Date: 09/24/21 Status: Ordered SEROquel 100 mg oral tablet 100 mg, 1, tablet, By Mouth, Daily at bedtime, # 30 tablet, Refills 0, Tot. Refills 0, Maintenance,01/07/22 9:56:00 EDT, Route to Pharmacy Electronically, [facility]/pharmacy #[id number], Partial fill upon patient request if the prescription is for a schedule II... Start Date: 01/07/22 Stop Date: 02/06/22 Status: Ordered Problem List Condition Effective Dates Status Health Status Inform ant Obese class II(Confirmed) Active Vital Signs Most recent to oldest [Reference Range]: 1 2 3 Oxygen Saturation [94-100 %] 100 % (01/22/22 9:23 AM) 99 % (01/22/22 7:21 AM) 99 % (01/22/22 5:29 AM) Pulse Rate [55-90 bpm] 70 bpm (01/22/22 9:23 AM) 94 bpm *H* (01/22/22 7:21 AM) 90 bpm (01/22/22 5:29 AM) Blood Pressure [90-138/55-84 mm Hg] 126/78mm Hg (01/22/22 9:23 AM) 134/67mm Hg (01/22/22 7:21 AM) 136/79mm Hg (01/22/22 5:29 AM) Respiratory Rate [16-30 br/min] 16 br/min (01/22/22 9:25 AM) 16 br/min (01/22/22 9:23 AM) 20 br/min (01/21/22 9:26 PM) Temperature [96.8-100.4 DegF] 98.7 DegF (01/22/22 7:21 AM) 98.0 DegF (01/22/22 5:29 AM) 99.0 DegF (01/22/22 3:44 AM) Mode of Delivery (Oxygen) Room air (01/22/22 9:23 AM) Room air (01/22/22 7:21 AM) Room air (01/22/22 5:29 AM) Blood pressure sites Arm, right (01/22/22 9:23 AM) Arm, right (01/22/22 7:21 AM) Arm, right (01/22/22 5:29 AM) Temperature Route Oral (01/22/22 7:21 AM) Oral (01/22/22 5:29 AM) Oral (01/22/22 3:44 AM) Social History Social History Type Response Tobacco Use: vape. Sex
--- OUTSIDE RECORDS SUMMARY | 2024-04-28 21:40 | XMS_ITS | Continuity of Care Document ---
Author Organization [facility] ter Address [address] [place] [address]- Care Team Providers Care Director Of Hospitality Name Role Phone Jonh HENNESSY, Asma Primary Care Physician Encounter [facility] [place] Date(s): 03/20/21 - 03/20/[address] [address]- Discharge Disposition: A-D/C Home Attending Physician: Cheo Membreno MD Admitting Physician: Cheo Membreno MD Referring Physician: Not on Staff, Referring MD Allergies, Adverse Reactions, Alerts Substance Reaction Severity Status shellfish Active [place] Active Medications famotidine 10 mg oral tablet 1 tablet = 10 mg, By Mouth, 2 times a day, 1 hour before meals, # 60 tablet, 0 Refills, Maintenance, 03/20/21 20:52:00 EDT, Tablet, Partial fill upon patient request if the prescription is for a schedule II opioid drug. Start Date: 03/20/21 Stop Date: 04/19/21 Status: Ordered Vital Signs Most recent to oldest [Reference Range]: 1 2 3 Oxygen Saturation [94-100 %] 97 % (03/20/21 7:35 PM) 100 % (03/20/21 5:43 PM) 100 % (03/20/21 2:55 PM) Pulse Rate [55-90 bpm] 61 bpm (03/20/21 7:35 PM) 62 bpm (03/20/21 5:43 PM) 75 bpm (03/20/21 2:55 PM) Blood Pressure [90-138/55-84 mm Hg] 144/90mm Hg *H* (03/20/21 8:02 PM) 95/77mm Hg (03/20/21 7:35 PM) 123/68mm Hg (03/20/21 5:43 PM) Respiratory Rate [16-30 br/min] 16 br/min (03/20/21 7:35 PM) 15 br/min *L* (03/20/21 5:43 PM) 18 br/min (03/20/21 2:55 PM) Temperature [96.8-100.4 DegF] 98 DegF (03/20/21 7:35 PM) 98.7 DegF (03/20/21 5:43 PM) 98.3 DegF (03/20/21 2:55 PM) Mode of Delivery (Oxygen) Room air (03/20/21 7:35 PM) Room air (03/20/21 5:43 PM) Room air (03/20/21 2:55 PM) Blood pressure sites Arm, right (03/20/21 8:02 PM) Arm, right (03/20/21 7:35 PM) Arm, left (03/20/21 5:43 PM) Temperature Route Oral (03/20/21 7:35 PM) Oral (03/20/21 5:43 PM) Oral (03/20/21 2:55 PM)
--- OUTSIDE RECORDS SUMMARY | 2024-04-28 21:40 | XMS_ITS | Continuity of Care Document ---
Author Organization [facility] ter Address [address] [place] [id number]- Care Team Providers Care Wool Hat Finisher Name Role Phone Jazmyne HENNESSY, Gauri Mcneil Primary Care Physician Encounter [facility] [place] Date(s): 12/31/21 - 01/01/[address] [address]- Discharge Disposition: Transferred to an intermediate care faci Attending Physician: Emmanuel Adan MD Admitting Physician: Emmanuel Adan MD Referring Physician: Not on Staff, Referring MD Allergies, Adverse Reactions, Alerts Substance Reaction Severity Status shellfish Active [place] Active Immunizations Given and Recorded Vaccine Date Status Refusal Reason tetanus/diphtheria/pertussis, acel(Tdap) 01/01/22 Given Medications famotidine 10 mg oral tablet 1 [...] 1 2 3 Oxygen Saturation [94-100 %] 98 % (01/01/22 5:36 PM) 98 % (01/01/22 2:24 PM) 99 % (01/01/22 12:26 PM) Pulse Rate [55-90 bpm] 80 bpm (01/01/22 5:36 PM) 81 bpm (01/01/22 2:24 PM) 76 bpm (01/01/22 12:26 PM) Blood Pressure [90-138/55-84 mm Hg] 134/84mm Hg (01/01/22 5:36 PM) 116/76mm Hg (01/01/22 2:24 PM) 112/65mm Hg (01/01/22 12:26 PM) Respiratory Rate [16-30 br/min] 16 br/min (01/01/22 5:36 PM) 16 br/min (01/01/22 2:24 PM) 16 br/min (01/01/22 12:26 PM) Temperature [96.8-100.4 DegF] 97.9 DegF (01/01/22 5:36 PM) 98 DegF (01/01/22 2:24 PM) 98.2 DegF (01/01/22 10:18 AM) Mode of Delivery (Oxygen) Room air (01/01/22 5:36 PM) Room air (01/01/22 2:24 PM) Room air (01/01/22 12:26 PM) Blood pressure sites Arm, left (01/01/22 5:36 PM) Arm, left (01/01/22 2:24 PM) Arm, left (01/01/22 12:26 PM) Temperature Route Oral (01/01/22 5:36 PM) Oral (01/01/22 2:24 PM) Oral (01/01/22 10:18 AM) Social History Social History Type Response Tobacco Use: vape. Sex
--- OUTSIDE RECORDS SUMMARY | 2024-04-28 21:40 | XMS_ITS | Continuity of Care Document ---
Author Organization [facility] ter Address [address] [place] [address]- Care Team Providers Care Steward/Stewardess Second Class Name Role Phone Jazmyne HENNESSY, Gauri Mcneil Primary Care Physician [place] [facility] [place] - 11/01/[address] [address]- Discharge Disposition: A-D/C Walkout Attending Physician: Not on Staff, Attending MD Admitting Physician: Not on Staff, Admitting MD Referring Physician: Not on Staff, Referring MD Allergies, Adverse Reactions, Alerts Substance Reaction Severity Status shellfish Active [place] Active Immunizations Given and Recorded Vaccine Date [...] Maintenance, 01/07/22 9:56:00 EDT,Route to Pharmacy Electronically, [facility]/pharmacy #[id number], Partial fill upon patient request if the prescription is for a schedule II opioid drug., 160, cm,... Start Date: 01/07/22 Stop Date: 02/06/22 Status: Ordered prazosin 5 mg oral capsule [...] Maintenance,01/07/22 9:56:00 EDT, Route to Pharmacy Electronically, [facility]/pharmacy #[id number], Partial fill upon patient request if the prescription is for a schedule II... Start Date: 01/07/22 Stop Date: 02/06/22 Status: Ordered Problem List Condition Confirmation Course Effective Dates Status Health St atus Informant Obese class II Confirmed Active Vital Signs Most recent to oldest [Reference Range]: 1 2 3 Oxygen Saturation [94-100 %] 99 % (11/01/22 11:16 AM) 99 % (11/01/22 9:00 AM) 100 % (11/01/22 6:47 AM) Pulse Rate [55-90 bpm] 69 bpm (11/01/22 11:16 AM) 72 bpm (11/01/22 9:00 AM) 71 bpm (11/01/22 6:47 AM) Blood Pressure [90-138/55-84 mm Hg] 143/88mm Hg *H* (11/01/22 11:16 AM) 134/82mm Hg (11/01/22 9:00 AM) 156/86mm Hg *H* (11/01/22 6:47 AM) Respiratory Rate [16-30 br/min] 18 br/min (11/01/22 11:16 AM) 18 br/min (11/01/22 9:00 AM) 18 br/min (10/31/22 10:36 PM) Temperature [96.8-100.4 DegF] 98.7 DegF (11/01/22 11:16 AM) 98.7 DegF (11/01/22 9:00 AM) 98.7 DegF (11/01/22 6:47 AM) Mode of Delivery (Oxygen) Room air (11/01/22 11:16 AM) Room air (11/01/22 9:00 AM) Room air (11/01/22 6:47 AM) Blood pressure sites Arm, right (11/01/22 11:16 AM) Arm, right (11/01/22 9:00 AM) Arm, left (11/01/22 6:47 AM) Temperature Route Oral (11/01/22 11:16 AM) Oral (11/01/22 9:00 AM) Oral (11/01/22 6:47 AM) Social History Social History Type Response Tobacco Use: vape. Sex Patient Care team information Care Team Personnel Name: Emily Quesada RN Position: S RN Member Role: Primary Care Nurse Name: Jazmyne HENNESSY , Gauri Mcneil Position: Reference Physician Member Role: PCP Address: Address: [address] [place] [address]- Care Team Related Persons Name: SOL MANDUJANO Address: home [address] [place] [address] Name: SHAW NARAYANAN Address: home [address] [facility] [address] [place] [id number]
--- OUTSIDE RECORDS SUMMARY | 2024-04-28 21:40 | XMS_ITS | Continuity of Care Document ---
Author Organization [facility] [place] Address [address] [place] [address]- Care Team Providers Care Immigration Attorney Name Role Phone Jonh HENNESSY, Asma Primary Care Physician Encounter [facility] Date(s): 05/03/21 - 06/02/21 [facility] [address] [address] Attending Physician: Lori Gardiner Admitting Physician: AdmLori rizvi Referring Physician: Admtr ArJessica Allergies, Adverse Reactions, Alerts Substance Reaction Severity Status shellfish Active [place] Active Medications famotidine 10 mg oral tablet 1 tablet = 10 mg, By Mouth, 2 times a day, 1 hour before meals, # 60 tablet, 0 Refills, Maintenance, 03/20/21 20:52:00 EDT, Tablet, Partial fill upon patient request if the prescription is for a schedule II opioid drug. Start Date: 03/20/21 Stop Date: 04/19/21 Status: Ordered
--- OUTSIDE RECORDS SUMMARY | 2024-04-28 21:40 | XMS_ITS | Continuity of Care Document ---
Author Organization [facility] [place] Address [address] [place] [address]- Care Team Providers Care Condenser Setter Name Role Phone Jonh HENNESSY, Asma Primary Care Physician [phone] Encounter [facility] Date(s): 03/20/21 - 06/02/21 [facility] [place] [address] [place] [address]- Attending Physician: Aj Woodard MD Referring Physician: Not on Staff, Referring MD Allergies, Adverse Reactions, Alerts Substance Reaction Severity Status shellfish Active [place] Active Medications famotidine 10 mg oral tablet 1 tablet = 10 mg, By Mouth, 2 times a day, 1 hour before meals, # 60 tablet, 0 Refills, Maintenance, 03/20/21 20:52:00 EDT, Tablet, Partial fill upon patient request if the prescription is for a schedule II opioid drug. Start Date: 03/20/21 Stop Date: 04/19/21 Status: Ordered
[2024-04-29 00:40] VITALS: BP 108/55; PULSE 66; RESP 20; TEMP 36.5; O2SAT 97
[2024-04-29] MEDS: Ketorolac Tromethamine 30 MG/ML VIAL IVPUSH (01:17)
[2024-04-29] MEDS: 0.9 % Sodium Chloride 1,000 ML 999 ML IVCONT (01:18)
[2024-04-29] MEDS: diphenhydrAMINE HCL 50 MG/ML VIAL 25 MG IVPUSH (01:18)
[2024-04-29] MEDS: Metoclopramide HCl 10 MG/2 ML VIAL IVPUSH (01:18)
[2024-04-29 03:47] VITALS: BP 108/62; PULSE 68; RESP 18; TEMP 36.3; O2SAT 98
== END 2024-04-29 03:50 | disposition home or self-care (01) ==
PROVIDERS: Emergency Provider Emergency Medicine; PCP Internal Medicine
DX: G43.909 Migraine, unspecified, not intractable, without status migrainosus (principal); I10 Essential (primary) hypertension; Z79.899 Other long term (current) drug therapy
CPT/HCPCS: 70450; 96361; 96374; 96375; 99284; J1200; J1885; J2765

== ENCOUNTER 2024-05-03 19:30 | Emergency (ER) | payer SELFPAY ==
[2024-05-03 20:10] VITALS: BP 152/99; PULSE 102; RESP 18; TEMP 36.9; O2SAT 96; BMI 44.1
--- NOTE | 2024-05-03 20:12 | ED_ITS ---
HPI - Headache General Chief Complaint: Headache Stated Complaint: migraine x 8 days, vomiting Time Seen by Provider: 05/03/24 22:54 Related Data Home Medications ?Medication ?Instructions ?Recorded ?Confirmed mirtazapine 15 mg tablet 15 mg PO BEDTIME 10/22/22 09/25/23 sertraline 100 mg tablet 100 mg PO DAILY 03/19/23 09/25/23 sertraline 25 mg tablet 25 mg PO DAILY 08/18/23 09/25/23 methylphenidate HCl 36 mg 36 mg PO QAM 09/25/23 09/25/23 tablet,extended release 24 hr (Concerta) Previous Rx's ?Medication ?Instructions ?Recorded amlodipine 5 mg tablet 5 mg PO BID #180 tabs 07/03/23 lidocaine 5 % topical patch 1 patch topical DAILY #15 ea 07/25/23 albuterol sulfate 90 mcg/actuation 2 puff inhalation Q6H PRN 08/04/23 aerosol inhaler shortness of breath or wheezing #6.7 grams methylcellulose (laxative) 500 mg 500 mg PO DAILY #90 tabs 08/18/23 tablet (Citrucel) ondansetron 4 mg disintegrating 4 mg PO Q8H PRN nausea and 12/18/23 tablet vomiting #10 tabs meloxicam 15 mg tablet 15 mg PO DAILY 7 days #7 tabs 02/04/24 ibuprofen 600 mg tablet 600 mg PO TID PRN pain #14 tabs 02/19/24 benzonatate 100 mg capsule 100 mg PO TID cough #30 caps 02/27/24 cetirizine 10 mg tablet (Zyrtec) 10 mg PO DAILY PRN allergy 02/27/24 symptoms #30 tabs bisacodyl 5 mg tablet,delayed 10 mg (2 x 5 mg) PO BEDTIME #180 04/13/24 release (Dulcolax (bisacodyl)) tabs esomeprazole magnesium 40 mg 40 mg PO DAILY #30 caps 04/13/24 capsule,delayed release (Nexium) azithromycin 250 mg tablet See Rx Instructions PO .COMPLEX #6 04/20/24 tabs ketorolac 10 mg tablet 10 mg PO Q8H PRN pain #10 tabs 04/29/24 metoclopramide HCl 5 mg tablet 5 mg PO .T.i.d. PRN nausea and 04/29/24 (Reglan) vomiting #10 tabs Allergies Allergy/AdvReac Type Severity Reaction Status Date / Time [place] [employer]atives Allergy Intermediate hives Verified 05/03/24 20:14 [CITRUS] shellfish derived Allergy Intermediate HIVES Verified 05/03/24 20:14 [SHELLFISH DERIVED] SWOLLEN FACE No Known Drug Allergies Allergy Unknown none Verified 05/03/24 20:14 SEAFOOD Allergy Severe ANGIOEDEMA Uncoded 05/03/24 20:14 PMFSH Past Medical History Medical History Sessile serrated polyp of colon Family history of systemic lupus erythematosus Polyarthralgia Depression Essential hypertension Impaired fasting glucose Mid back pain on left side Insomnia Vitamin D deficiency Gastric ulcer Esophagitis Heartburn Lumbago with sciatica, left side Blurred vision, bilateral Obesity (BMI 30-39.9) Surgical History Hx of esophagogastroduodenoscopy Hx of colonoscopy Family History Family History Father History of renal dialysis Chronic kidney disease (CKD) Substance use disorder Mental health disorder Mother Substance use disorder Mental health disorder Brother Mental health disorder Brother Mental health disorder Brother Mental health disorder Brother Mental health disorder Sister Mental health disorder Sister Mental health disorder Paternal Aunt Crohn's disease Social History Social History Household Members: Family and Other Household Members Other:: Aunt Housing: Apartment Are you a primary home care specialist to a significant other at home: No Do you presently have visiting nurse or other home services: No Alcohol intake: never Patient Tobacco Use Status: Never used Tobacco e-Cigarette/Vaping Use: Former Use Second Hand Smoke Exposure: Yes Advance Directives: Yes Advance Directives on File: Yes Advance Directives Date on File: 08/26/22 service: No Current occupational status: employed Current occupation: [employer] Sexual orientation: Lesbian/Lomas/Homosexual Cognitive needs: No Hearing needs: No Vision needs: No Physical Exam 2 Vital Signs: Vital Signs: Last Vital Signs Temp 98.4 F 05/03/24 23:07 Pulse 78 05/03/24 23:07 Resp 16 05/03/24 23:07 BP 130/80 05/03/24 23:07 Pulse Ox 98 05/03/24 23:07 O2 Del Method Room Air 05/03/24 23:07 BMI result Body Mass Index 44.1 Course Course Course Narrative: This is an RME: Additional HPI, ROS, PE not included below will be deferred to primary provider. RME assessment and note performed by: Mary Ibarra PA-C This is a 41-tjfi-eve-assigned female at identifies as male, who presents to the ER with complaints of ongoing headache x 8 days. Patient was seen here on April 20 for same symptoms. Symptoms have not improved. Plan: Medications Administered Discontinued Medications Generic Name Dose Route Start Last Admin Trade Name Yanira PRN Reason Stop Dose Admin Diphenhydramine HCl 25 mg 05/03/24 23:25 05/03/24 23:54 Diphenhydramine Hcl 50 Mg/Ml Vial IVPUSH 05/03/24 23:26 25 mg ONCE ONE Administration Sodium Chloride 1,000 mls @ 999 mls/hr 05/03/24 23:30 05/03/24 23:54 Ns IV 05/04/24 00:30 999 mls/hr .Q1H1M ALEX Administration Ketorolac Tromethamine 30 mg 05/03/24 23:24 05/03/24 23:53 Ketorolac Tromethamine 30 Mg/Ml Vial IVPUSH 05/03/24 23:25 30 mg ONCE ONE Administration Metoclopramide HCl 10 mg 05/03/24 23:24 05/03/24 23:53 Metoclopramide Hcl 10 Mg/2 Ml Vial IVPUSH 05/03/24 23:25 10 mg ONCE ONE Administration Medical Decision Making Lab Data 05/03/24 20:34 05/03/24 20:34 Labs: Lab Results 05/03/24 Range/Units 20:34 WBC 11.0 H (4.8-10.8) X10*3/uL RBC 4.80 (4.20-5.50) X10*6/uL Hgb 12.9 (12.0-16.0) g/dl Hct 37.0 (37.0-47.0) % MCV 77.1 L (80.0-98.0) fL MCH 26.9 L (27.0-33.0) pg MCHC 34.9 (31.0-35.0) g/dl RDW 13.6 (11.0-16.0) % Plt Count 341 (160-400) X10*3/uL MPV 9.2 L (9.4-12.3) fL Immature Gran % (Auto) 0.2 (0.0-0.4) % Neut % (Auto) 67.6 (45-73) % Lymph % (Auto) 26.8 (20-40) % [place] % (Auto) 4.4 (2-11) % Eos % (Auto) 0.5 (0-4) % Baso % (Auto) 0.5 (0-2) % Lymph # (Auto) 2.9 (1.2-4.9) X10*3/uL [place] # (Auto) 0.5 (0.1-1.2) X10*3/uL Eos # (Auto) 0.1 (0.0-0.4) X10*3/uL Baso # (Auto) 0.1 (0.0-0.2) X10*3/uL Abs Immat Gran (auto) 0.02 (0.00-0.03) X10*3/uL Absolute Neuts (auto) 7.4 (2.0-8.3) x10*3/uL Absolute Nucleated RBC 0.000 (0.0-0.012) X10*3/uL Nucleated RBC % (auto) 0.0 (0.0-0.2) /100WBC Sodium 138 (135-145) mmol/L Potassium 3.3 (3.3-5.1) mmol/L Chloride 106 (96-108) mmol/L Carbon Dioxide 23 (22-29) mmol/L Anion Gap 12 (12-20) BUN 10 (9-16) mg/dL Creatinine 0.81 (0.5-1.4) mg/dL Estim Creat Clear Calc 126.1 Estimated GFR > 60 Random Glucose 197 H (60-115) mg/dL Calcium 9.2 (8.4-10.2) mg/dL Magnesium 1.8 (1.6-2.6) mg/dL Total Bilirubin 0.2 (0.0-1.0) mg/dL Direct Bilirubin < 0.2 (0.0-0.5) mg/dL AST 26 (5-31) U/L ALT 30 (0-31) U/L Alkaline Phosphatase 78 (39-117) U/L Total Protein 7.3 (6.5-8.0) g/dL Albumin 4.2 (3.5-5.0) g/dL Beta HCG, Quant < 2 mIU/mL Influenza Type A (PCR) NEGATIVE (Negative) Influenza Type B (PCR) NEGATIVE (Negative) RSV RNA Qual (PCR) NEGATIVE (Negative) SARS-CoV-2 RNA (RT-PCR) NEGATIVE (Negative) Discharge Plan Discharge Clinical Impression: Migraine Patient Disposition: Home, Self-Care Instructions: Migraine Headache (ED) Prescriptions: No Action amlodipine 5 mg tablet 5 mg PO BID Qty: 180 3RF mirtazapine 15 mg tablet 15 mg PO BEDTIME lidocaine 5 % adhesive patch,medicated 1 patch topical DAILY Qty: 15 0RF Rx Instructions: leave on most painful area for up to 12 hrs ondansetron 4 mg tablet,disintegrating 4 mg PO Q8H PRN (Reason: nausea and vomiting) Qty: 10 0RF ibuprofen 600 mg tablet 600 mg PO TID PRN (Reason: pain) Qty: 14 0RF Rx Instructions: Do not use with meloxicam azithromycin 250 mg tablet See Rx Instructions PO .COMPLEX Qty: 6 0RF Rx Instructions: For 250 mg dose pack: take 500 mg today (day 1), then 250 mg for 4 days (days 2-5) ketorolac 10 mg tablet 10 mg PO Q8H PRN (Reason: pain) Qty: 10 0RF Rx Instructions: Do not use this medication with naproxen, ibuprofen or any NSAIDs, only Tylenol if needed metoclopramide HCl [Reglan] 5 mg tablet 5 mg PO .T.i.d. PRN (Reason: nausea and vomiting) Qty: 10 0RF Rx Instructions: Take together with Toradol p.r.n. migraine sertraline 100 mg tablet 100 mg PO DAILY cetirizine [Zyrtec] 10 mg tablet 10 mg PO DAILY PRN (Reason: allergy symptoms) Qty: 30 0RF benzonatate 100 mg capsule 100 mg PO TID Qty: 30 0RF albuterol sulfate 90 mcg/actuation HFA aerosol inhaler 2 puff inhalation Q6H PRN (Reason: shortness of breath or wheezing) Qty: 6.7 0RF meloxicam 15 mg tablet 15 mg PO DAILY 7 Days Qty: 7 0RF sertraline 25 mg tablet 25 mg PO DAILY Citrucel 500 mg tablet 500 mg PO DAILY Qty: 90 2RF Rx Instructions: take it with full glass of water bisacodyl [Dulcolax (bisacodyl)] 5 mg tablet,delayed release (DR/EC) 10 mg PO BEDTIME Qty: 180 4RF esomeprazole magnesium [Nexium] 40 mg capsule,delayed release(DR/EC) 40 mg PO DAILY Qty: 30 5RF methylphenidate HCl [Concerta] 36 mg tablet extended release 24hr 36 mg PO QAM Referrals: Luis Eduardo Rocha MD [Physician] - 05/11/24 Print Language: Cypriot
[2024-05-03 20:40] LABS: MANUAL DIFF FLAG NO
[2024-05-03 20:47] LABS: Basophils Absolute Auto 0.1 X10*3/uL (0.0-0.2); Basophils Percent Auto 0.5 % (0-2); Eosinophils Absolute Auto 0.1 X10*3/uL (0.0-0.4); Eosinophils Percent Auto 0.5 % (0-4); Hemoglobin 12.9 g/dl (12.0-16.0); Imm Gran Abs Auto 0.02 X10*3/uL (0.00-0.03); Imm Gran Pct Auto 0.2 % (0.0-0.4); Lymphocytes Absolute Auto 2.9 X10*3/uL (1.2-4.9); Lymphocytes Percent Auto 26.8 % (20-40); Mean Corpuscular HGB Conc 34.9 g/dl (31.0-35.0); Mean Corpuscular Hemoglobin 26.9 pg (27.0-33.0); Mean Corpuscular Volume 77.1 fL (80.0-98.0); Mean Platelet Volume 9.2 fL (9.4-12.3); Monocytes Absolute Auto 0.5 X10*3/uL (0.1-1.2); Monocytes Percent Auto 4.4 % (2-11); Neutrophils Absolute Auto 7.4 x10*3/uL (2.0-8.3); Neutrophils Percent Auto 67.6 % (45-73); Platelet Count 341 X10*3/uL (160-400); Red Cell Distribution Width 13.6 % (11.0-16.0)
[2024-05-03 21:00] LABS: Alanine Aminotransferase 30 U/L (0-31); Albumin Level 4.2 g/dL (3.5-5.0); Alkaline Phosphatase 78 U/L (39-117); Anion Gap 12 (12-20); Aspartate Amino Transferase 26 U/L (5-31); Bilirubin Direct < 0.2 mg/dL (0.0-0.5); Bilirubin Total 0.2 mg/dL (0.0-1.0); Blood Urea Nitrogen 10 mg/dL (9-16); Calcium 9.2 mg/dL (8.4-10.2); Carbon Dioxide 23 mmol/L (22-29); Chloride 106 mmol/L (96-108); Creatinine Clr Calc Pharmacy 126.1; Estimated Glomerular Filt Rate > 60; Glucose Random 197 mg/dL (60-115); Magnesium 1.8 mg/dL (1.6-2.6); Potassium 3.3 mmol/L (3.3-5.1); Sodium 138 mmol/L (135-145); Total Protein 7.3 g/dL (6.5-8.0)
[2024-05-03 21:12] LABS: HCG Quantitative < 2 mIU/mL
[2024-05-03 21:25] LABS: Influenza A PCR NEGATIVE (Negative); Influenza B PCR NEGATIVE (Negative); Resp Syncy Virus RNA Qual PCR NEGATIVE (Negative); SARS COV2 PCR INHOUSE NEGATIVE (Negative)
--- OUTSIDE RECORDS SUMMARY | 2024-05-03 23:00 | XMS_ITS | Continuity of Care Document ---
Author Organization [facility] ter Address [address] [place] [id number]- Care Team Providers Care Miter Operator Name Role Phone Jazmyne HENNESSY, Gauri Mcneil Primary Care Physician Encounter [facility] Date(s): 04/29/24 - 04/30/[address] [address]- Encounter Diagnosis Headache(Final) - 04/30/24 Discharge Disposition: A-D/C Home Attending Physician: Arlen Pimentel MD Admitting Physician: Arlen Pimentel MD Referring Physician: Not on Staff, Referring MD Allergies, Adverse Reactions, Alerts Substance Reaction Severity Status shellfish Active [place] Active Immunizations Given and Recorded Vaccine Date [...] Maintenance, 01/07/22 9:56:00 EDT,Route to Pharmacy Electronically, [facility]/pharmacy #[id number], Partial fill upon patient request if the prescription is for a schedule II opioid drug., 160, cm,... Start Date: 01/07/22 Stop Date: 02/06/22 Status: Ordered ibuprofen 600 mg oral tablet 600 mg, 1, tablet, By Mouth, Every 8 hours, # 30 tablet, Refills 0, Tot. Refills 0, Maintenance, 08/02/23 23:20:00 EDT, Route to Pharmacy Electronically, [facility]/pharmacy #[id number], Partial fill upon patientrequest if the prescription is for a schedule II op... Start Date: 08/02/23 Status: Ordered prazosin 5 mg oral capsule [...] Maintenance,01/07/22 9:56:00 EDT, Route to Pharmacy Electronically, [facility]/pharmacy #[id number], Partial fill upon patient request if the prescription is for a schedule II... Start Date: 01/07/22 Stop Date: 02/06/22 Status: Ordered Tylenol Extra Strength 500 mg oral tablet 2 tablet = 1,000 mg, By Mouth, 3 times a day, PRN for fever, # 60 tablet, 0 Refills, Maintenance, 08/02/23 23:20:00 EDT, Tablet, [facility]/pharmacy #[id number], Partial fill upon patient request, 160, cm, 08/02/23 21:59:00 EDT, Height, 102, kg, 08/02/23 21:59:00... Start Date: 08/02/23 Stop Date: 08/12/23 Status: Ordered Problem List Condition Confirmation Course Effective Dates Status Health St atus Informant Severe obesity Confirmed Active Vital Signs Most recent to oldest [Reference Range]: 1 2 3 Height 160 cm (04/30/24 2:42 AM) 160 cm (04/29/24 11:25 PM) 160 cm (04/29/24 8:27 PM) Weight 109 kg (04/30/24 2:42 AM) 109 kg (04/29/24 11:25 PM) 109 kg (04/29/24 8:27 PM) Oxygen Saturation [94-100 %] 100 % (04/30/24 5:00 AM) 99 % (04/30/24 2:42 AM) 100 % (04/29/24 11:25 PM) Pulse Rate [55-90 bpm] 63 bpm (04/30/24 5:00 AM) 65 bpm (04/30/24 2:42 AM) 64 bpm (04/29/24 11:25 PM) Body Mass Index [18.5-24.99 kg/m2] 42.58 kg/m2 *>HHI* (04/30/24 2:42 AM) 42.58 kg/m2 *>HHI* (04/29/24 11:25 PM) 42.58 kg/m2 *>HHI* (04/29/24 8:27 PM) Blood Pressure [90-138/55-84 mm Hg] 116/76mm Hg (04/30/24 5:00 AM) 113/72mm Hg (04/30/24 2:42 AM) 144/85mm Hg *H* (04/29/24 11:25 PM) Respiratory Rate [16-30 br/min] 17 br/min (04/30/24 5:00 AM) 18 br/min (04/30/24 2:42 AM) 16 br/min (04/29/24 11:25 PM) Temperature [96.8-100.4 DegF] 97.7 DegF (04/30/24 2:42 AM) 98.2 DegF (04/29/24 11:25 PM) 98.5 DegF (04/29/24 8:27 PM) Mode of Delivery (Oxygen) Room air (04/30/24 5:00 AM) Room air (04/30/24 2:42 AM) Room air (04/29/24 11:25 PM) Blood pressure sites Arm, right (04/30/24 5:00 AM) Arm, right (04/30/24 2:42 AM) Arm, right (04/29/24:25 PM) Temperature Route Oral (04/30/24 2:42 AM) Oral (04/29/24 11:25 PM) Oral (04/29/24 8:27 PM) Dry Weight 109 kg (04/30/24 2:42 AM) 109 kg (04/29/24 11:25 PM) 109 kg (04/29/24 8:27 PM) Weight Obtained Via Standing scale (04/29/24 8:27 PM) Dry Weight Obtained Via Standing scale (04/29/24 8:27 PM) Social History Social History Type Response Tobacco Use: vape. Sex Note * Chung Tena DO: PERFORM Event Display: Patient Education Leaflets Authored Date: [id number] Tension Headache ?? [id number] Tension Headache A muscle tension headache is a very common cause of head pain. It???s also called a stress headache. When some people are under stress, they tense the muscles of their shoulder, neck, and scalp without knowing it. If this tension lasts long enough, a headache can occur. A tension headache can be quite painful. It can last for hours or even days. Home care Follow these tips when caring for yourself at home: ??? Don???t drive yourself home if you were given pain medicine for your headache. Instead have someone else drive you home. Try to sleep when you get home. You should feel much better when you wake up. ??? Put heat on the back of your neck to help ease neck spasm. ?? How to prevent tension-type headaches ??? Figure out what is causing stress in your life. Learn newways to handle your stress. Ideas include regular exercise, biofeedback, self-hypnosis, yoga, and meditation. Talk with your healthcare provider to find out more information about managing stress. Many books and digital media are also available on this subject. ??? Take time out at the first sign of a tension headache, if possible. Take yourself out of the stressful situation. Find a quiet, comfortable place to sit or lie down and let yourself relax. Heat and deep massage of the tight areas in the neck and shoulders may help ease muscle spasm. You may also get relief from a medicine such as ac etaminophen, ibuprofen, naproxen, or a prescribed muscle relaxant. But using these medicines too often may make headaches worse. ?? Follow-up care Follow up with your healthcare provider, or as advised. Talk with your provider if you have frequent headaches. They can figure out a treatment plan. Ask if you can have medicine to take at home the next time you get a bad headache. This may keep you from having to visit the emergency department inthe future. You may need to see a headache specialist (neurologist) if you continue to have headache s. ?? When to get medical advice Call your healthcare provider right away??if any of these occur: ??? Your head pain gets worse during sexual intercourse or strenuous activity ??? Your head pain doesn???t get better in 24 hours ??? You aren???t able to keep liquids down (repeated vomiting) ??? Fever of 100.4??F (38??C) or higher, or as advised by your provider ??? Stiff neck ??? Extreme drowsiness, confusion, or fainting ??? Dizziness or dizziness with spinning feeling (vertigo) ??? Weakness in an arm or leg or 1 side of your face ??? You have trouble speaking ??? Your vision changes ?? Last Reviewed Date: 2022 ?? [id number] [employer]. All rights reserved. This information is not intended as a substitute for professional medical care. Always follow your healthcare professional's instructions. ?? Patient Care team information Care Team Personnel Name: Jazmyne HENNESSY , Gauri Mcneil Position: Reference Physician Member Role: PCP Address: Address: [address] [place] [address]- Care Team Related Persons Name: SOL MANDUJANO Address: home [address] [place] [id number] Name: SHAW NARAYANAN Address: home [address] [address]
[2024-05-03 23:07] VITALS: BP 130/80; PULSE 78; RESP 16; TEMP 36.9; O2SAT 98
--- NOTE | 2024-05-03 23:25 | ED_ITS ---
HPI - Headache General Chief Complaint: Headache Stated Complaint: migraine x 8 days, vomiting Time Seen by Provider: 05/03/24 22:54 History of Present Illness HPI Narrative: Patient is a 28-year-old female presents today with having headache for the last 8 days. It is dull it is worse on the right side. Patient was prescribed Reglan and Toradol but states the medication not been working. Has some photosensitivity had some nausea associated with the symptoms. Patient is from home. There is no focal weakness is no fever no chills. Had a CT scan done about 8 days ago it was grossly negative no evidence of any bleeding. Presented back to the ED for the constant headache. Related Data Home Medications ?Medication ?Instructions ?Recorded ?Confirmed mirtazapine 15 mg tablet 15 mg PO BEDTIME 10/22/22 09/25/23 sertraline 100 mg tablet 100 mg PO DAILY 03/19/23 09/25/23 sertraline 25 mg tablet 25 mg PO DAILY 08/18/23 09/25/23 methylphenidate HCl 36 mg 36 mg PO QAM 09/25/23 09/25/23 tablet,extended release 24 hr (Concerta) Previous Rx's ?Medication ?Instructions ?Recorded amlodipine 5 mg tablet 5 mg PO BID #180 tabs 07/03/23 lidocaine 5 % topical patch 1 patch topical DAILY #15 ea 07/25/23 albuterol sulfate 90 mcg/actuation 2 puff inhalation Q6H PRN 08/04/23 aerosol inhaler shortness of breath or wheezing #6.7 grams methylcellulose (laxative) 500 mg 500 mg PO DAILY #90 tabs 08/18/23 tablet (Citrucel) ondansetron 4 mg disintegrating 4 mg PO Q8H PRN nausea and 12/18/23 tablet vomiting #10 tabs meloxicam 15 mg tablet 15 mg PO DAILY 7 days #7 tabs 02/04/24 ibuprofen 600 mg tablet 600 mg PO TID PRN pain #14 tabs 02/19/24 benzonatate 100 mg capsule 100 mg PO TID cough #30 caps 02/27/24 cetirizine 10 mg tablet (Zyrtec) 10 mg PO DAILY PRN allergy 02/27/24 symptoms #30 tabs bisacodyl 5 mg tablet,delayed 10 mg (2 x 5 mg) PO BEDTIME #180 04/13/24 release (Dulcolax (bisacodyl)) tabs esomeprazole magnesium 40 mg 40 mg PO DAILY #30 caps 04/13/24 capsule,delayed release (Nexium) azithromycin 250 mg tablet See Rx Instructions PO .COMPLEX #6 04/20/24 tabs ketorolac 10 mg tablet 10 mg PO Q8H PRN pain #10 tabs 04/29/24 metoclopramide HCl 5 mg tablet 5 mg PO .T.i.d. PRN nausea and 04/29/24 (Reglan) vomiting #10 tabs Allergies Allergy/AdvReac Type Severity Reaction Status Date / Time [place] And Derivatives Allergy Intermediate hives Verified 05/03/24 20:14 [CITRUS] shellfish derived Allergy Intermediate HIVES Verified 05/03/24 20:14 [SHELLFISH DERIVED] SWOLLEN FACE No Known Drug Allergies Allergy Unknown none Verified 05/03/24 20:14 SEAFOOD Allergy Severe ANGIOEDEMA Uncoded 05/03/24 20:14 Review of Systems 2 Review of Systems: Positive headache on the right side Positive nausea Yes all other systems are reviewed and are negative [facility] Past Medical History Attestation statement: The following information was validated with the patient. Medical History Sessile serrated polyp of colon Family history of systemic lupus erythematosus Polyarthralgia Depression Essential hypertension Impaired fasting glucose Mid back pain on left side Insomnia Vitamin D deficiency Gastric ulcer Esophagitis Heartburn Lumbago with sciatica, left side Blurred vision, bilateral Obesity (BMI 30-39.9) Surgical History Hx of esophagogastroduodenoscopy Hx of colonoscopy Family History Family History Father History of renal dialysis Chronic kidney disease (CKD) Substance use disorder Mental health disorder Mother Substance use disorder Mental health disorder Brother Mental health disorder Brother Mental health disorder Brother Mental health disorder Brother Mental health disorder Sister Mental health disorder Sister Mental health disorder Paternal Aunt Crohn's disease Social History Social History Household Members: Family and Other Household Members Other:: Aunt Housing: Apartment Are you a primary complex care nurse practitioner to a significant other at home: No Do you presently have visiting nurse or other home services: No Alcohol intake: never Patient Tobacco Use Status: Never used Tobacco e-Cigarette/Vaping Use: Former Use Second Hand Smoke Exposure: Yes Advance Directives: Yes Advance Directives on File: Yes Advance Directives Date on File: 08/26/22 service: No Current occupational status: employed 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 Oriented X3. No acute distress. Eyes: Pupils equal, round and reactive to light. ENT: Pharynx normal. Neck: Normal inspection. Neck supple. No lymph nodes noted. No crepitus CVS: Normal heart rate and rhythm. Pulses normal. Normal S1 and S2 Respiratory: No respiratory distress. Breath sounds normal. No Wheezing. No rales Abdomen: Soft and nontender. No rigidity. No distention. good BS x4 Skin: Skin warm and dry. Normal skin color. Normal skin turgor. Extremities: No lower extremity edema. Neurovascular intact to all extremities. No Lacerations. No Rash Neuro: Oriented X 3. No motor deficit. No sensory deficit. Moving all extermities. No slurred speech Medications Administered Discontinued Medications Generic Name Dose Route Start Last Admin Trade Name Freq PRN Reason Stop Dose Admin Diphenhydramine HCl 25 mg 05/03/24 23:25 05/03/24 23:54 Diphenhydramine Hcl 50 Mg/Ml Vial IVPUSH 05/03/24 23:26 25 mg ONCE ONE Administration Sodium Chloride 1,000 mls @ 999 mls/hr 05/03/24 23:30 05/03/24 23:54 Ns IV 05/04/24 00:30 999 mls/hr .Q1H1M ALEX Administration Ketorolac Tromethamine 30 mg 05/03/24 23:24 05/03/24 23:53 Ketorolac Tromethamine 30 Mg/Ml Vial IVPUSH 05/03/24 23:25 30 mg ONCE ONE Administration Metoclopramide HCl 10 mg 05/03/24 23:24 05/03/24 23:53 Metoclopramide Hcl 10 Mg/2 Ml Vial IVPUSH 05/03/24 23:25 10 mg ONCE ONE Administration Medical Decision Making Medical Decision Making [facility] Narrative: Patient already had a CT scan of the head done last week. It was grossly negative. Headache suggestive of migraine headaches. Was given IV Reglan with good results. Headache seems to have subsided. Neurologically intact. No fever no chills no nuchal rigidity. Not suggestive of meningitis. Unlikely to be an intracranial bleed. Patient had similar headaches in the past. Will discharge patient home. Close follow-up on an outpatient basis. test was negative. No evidence for related issues. COVID flu RSV were all negative. No evidence for COVID related illness. Differential Diagnosis Differential Diagnoses: The differential diagnosis associated with the presentation includes Intracranial bleed, migraine, tension headache Admission/Observation Consideration of admission/observation: Escalation of care including admission/observation considered Lab Data [facility] Lab Attestation statement: I reviewed the patient's lab results. 05/03/24 20:34 05/03/24 20:34 Labs: Lab Results 05/03/24 Range/Units 20:34 WBC 11.0 H (4.8-10.8) X10*3/uL RBC 4.80 (4.20-5.50) X10*6/uL Hgb 12.9 (12.0-16.0) g/dl Hct 37.0 (37.0-47.0) % MCV 77.1 L (80.0-98.0) fL MCH 26.9 L (27.0-33.0) pg MCHC 34.9 (31.0-35.0) g/dl RDW 13.6 (11.0-16.0) % Plt Count 341 (160-400) X10*3/uL MPV 9.2 L (9.4-12.3) fL Immature Gran % (Auto) 0.2 (0.0-0.4) % Neut % (Auto) 67.6 (45-73) % Lymph % (Auto) 26.8 (20-40) % [place] % (Auto) 4.4 (2-11) % Eos % (Auto) 0.5 (0-4) % Baso % (Auto) 0.5 (0-2) % Lymph # (Auto) 2.9 (1.2-4.9) X10*3/uL [place] # (Auto) 0.5 (0.1-1.2) X10*3/uL Eos # (Auto) 0.1 (0.0-0.4) X10*3/uL Baso # (Auto) 0.1 (0.0-0.2) X10*3/uL Abs Immat Gran (auto) 0.02 (0.00-0.03) X10*3/uL Absolute Neuts (auto) 7.4 (2.0-8.3) x10*3/uL Absolute Nucleated RBC 0.000 (0.0-0.012) X10*3/uL Nucleated RBC % (auto) 0.0 (0.0-0.2) /100WBC Sodium 138 (135-145) mmol/L Potassium 3.3 (3.3-5.1) mmol/L Chloride 106 (96-108) mmol/L Carbon Dioxide 23 (22-29) mmol/L Anion Gap 12 (12-20) BUN 10 (9-16) mg/dL Creatinine 0.81 (0.5-1.4) mg/dL Estim Creat Clear Calc 126.1 Estimated GFR > 60 Random Glucose 197 H (60-115) mg/dL Calcium 9.2 (8.4-10.2) mg/dL Magnesium 1.8 (1.6-2.6) mg/dL Total Bilirubin 0.2 (0.0-1.0) mg/dL Direct Bilirubin < 0.2 (0.0-0.5) mg/dL AST 26 (5-31) U/L ALT 30 (0-31) U/L Alkaline Phosphatase 78 (39-117) U/L Total Protein 7.3 (6.5-8.0) g/dL Albumin 4.2 (3.5-5.0) g/dL Beta HCG, Quant < 2 mIU/mL Influenza Type A (PCR) NEGATIVE (Negative) Influenza Type B (PCR) NEGATIVE (Negative) RSV RNA Qual (PCR) NEGATIVE (Negative) SARS-CoV-2 RNA (RT-PCR) NEGATIVE (Negative) External Record Review External record reviewed: Inpatient record and Prior outpatient radiology Discharge Plan Discharge Clinical Impression: Migraine Patient Disposition: Home, Self-Care Instructions: Migraine Headache (ED) Prescriptions: No Action amlodipine 5 mg tablet 5 mg PO BID Qty: 180 3RF mirtazapine 15 mg tablet 15 mg PO BEDTIME lidocaine 5 % adhesive patch,medicated 1 patch topical DAILY Qty: 15 0RF Rx Instructions: leave on most painful area for up to 12 hrs ondansetron 4 mg tablet,disintegrating 4 mg PO Q8H PRN (Reason: nausea and vomiting) Qty: 10 0RF ibuprofen 600 mg tablet 600 mg PO TID PRN (Reason: pain) Qty: 14 0RF Rx Instructions: Do not use with meloxicam azithromycin 250 mg tablet See Rx Instructions PO .COMPLEX Qty: 6 0RF Rx Instructions: For 250 mg dose pack: take 500 mg today (day 1), then 250 mg for 4 days (days 2-5) ketorolac 10 mg tablet 10 mg PO Q8H PRN (Reason: pain) Qty: 10 0RF Rx Instructions: Do not use this medication with naproxen, ibuprofen or any NSAIDs, only Tylenol if needed metoclopramide HCl [Reglan] 5 mg tablet 5 mg PO .T.i.d. PRN (Reason: nausea and vomiting) Qty: 10 0RF Rx Instructions: Take together with Toradol p.r.n. migraine sertraline 100 mg tablet 100 mg PO DAILY cetirizine [Zyrtec] 10 mg tablet 10 mg PO DAILY PRN (Reason: allergy symptoms) Qty: 30 0RF benzonatate 100 mg capsule 100 mg PO TID Qty: 30 0RF albuterol sulfate 90 mcg/actuation HFA aerosol inhaler 2 puff inhalation Q6H PRN (Reason: shortness of breath or wheezing) Qty: 6.7 0RF meloxicam 15 mg tablet 15 mg PO DAILY 7 Days Qty: 7 0RF sertraline 25 mg tablet 25 mg PO DAILY Citrucel 500 mg tablet 500 mg PO DAILY Qty: 90 2RF Rx Instructions: take it with full glass of water bisacodyl [Dulcolax (bisacodyl)] 5 mg tablet,delayed release (DR/EC) 10 mg PO BEDTIME Qty: 180 4RF esomeprazole magnesium [Nexium] 40 mg capsule,delayed release(DR/EC) 40 mg PO DAILY Qty: 30 5RF methylphenidate HCl [Concerta] 36 mg tablet extended release 24hr 36 mg PO QAM Referrals: Luis Eduardo Rocha MD [Physician] - 05/11/24 Print Language: Jamaican
[2024-05-03] MEDS: Ketorolac Tromethamine 30 MG/ML VIAL IVPUSH (23:53)
[2024-05-03] MEDS: Metoclopramide HCl 10 MG/2 ML VIAL IVPUSH (23:53)
[2024-05-03] MEDS: diphenhydrAMINE HCL 50 MG/ML VIAL 25 MG IVPUSH (23:54)
[2024-05-03] MEDS: 0.9 % Sodium Chloride 1,000 ML 999 ML IV (23:54)
--- NOTE | 2024-05-04 00:04 | PC.NURSE ---
pt a&o, no sob or chest pain, 10/10 headache, started last week, medicated per Dec.
[2024-05-04 01:11] VITALS: BP 113/71; PULSE 71; RESP 16; TEMP 36.2; O2SAT 97
--- NOTE | 2024-05-04 01:18 | PC.NURSE ---
pt reports pain relief, pt able to speak in full sentence, denies any double vision, pt has a steady gait, reviewed discharge instruction with pt. pt verbalized understanding, no sign of distress upon discharge.
[2024-05-04 01:19] VITALS: BP 113/71; PULSE 68; RESP 20; TEMP 36.2; O2SAT 97
== END 2024-05-04 01:23 | disposition home or self-care (01) ==
PROVIDERS: Physician Assistant Medical; Emergency Provider Emergency Medicine Emergency Medical Services; PCP Internal Medicine
DX: G43.909 Migraine, unspecified, not intractable, without status migrainosus (principal); L56.8 Other specified acute skin changes due to ultraviolet radiation; R11.0 Nausea; R10.2 Pelvic and perineal pain; Z03.818 Encounter for observation for suspected exposure to other biological agents ruled out; Z79.899 Other long term (current) drug therapy
CPT/HCPCS: 0241U; 36415; 80048; 80076; 83735; 84702; 85025; 96361; 96374; 96375; 99284; 99285; J1200; J1885; J2765

== ENCOUNTER 2024-05-08 21:40 | Emergency (ER) | payer SELFPAY ==
[2024-05-08 22:07] VITALS: BP 115/103; PULSE 93; RESP 16; TEMP 36.7; O2SAT 98; BMI 44.2
[2024-05-09 00:23] VITALS: BP 126/67; PULSE 88; RESP 16; TEMP 36.6; O2SAT 95
--- NOTE | 2024-05-09 01:07 | ED.GENADULT ---
HPI - General Adult General Chief complaint: Headache Stated complaint: migraine, neck pain Time Seen by Provider: 05/09/24 01:07 History of Present Illness ED Provider: Bo HONEYCUTT narrative: The patient is a 28-year-old assigned female at who identifies as male who presents with a complaint of headache. The patient says they have been having a headache for 2 weeks. The patient was here in the emergency room on April 28 for a headache and again on May 03 for a headache. The patient says that the headache has never gone away and they continued to have a bad headache associated with photophobia. No fevers. The patient says they have a history of headaches and has been treated in the emergency room for headaches in the past but that the headaches on this occasion are worse than they used to be. Related Data Home Medications ?Medication ?Instructions ?Recorded ?Confirmed mirtazapine 15 mg tablet 15 mg PO BEDTIME 10/22/22 09/25/23 sertraline 100 mg tablet 100 mg PO DAILY 03/19/23 09/25/23 sertraline 25 mg tablet 25 mg PO DAILY 08/18/23 09/25/23 methylphenidate HCl 36 mg 36 mg PO QAM 09/25/23 09/25/23 tablet,extended release 24 hr (Concerta) Previous Rx's ?Medication ?Instructions ?Recorded amlodipine 5 mg tablet 5 mg PO BID #180 tabs 07/03/23 lidocaine 5 % topical patch 1 patch topical DAILY #15 ea 07/25/23 albuterol sulfate 90 mcg/actuation 2 puff inhalation Q6H PRN 08/04/23 aerosol inhaler shortness of breath or wheezing #6.7 grams methylcellulose (laxative) 500 mg 500 mg PO DAILY #90 tabs 08/18/23 tablet (Citrucel) ondansetron 4 mg disintegrating 4 mg PO Q8H PRN nausea and 12/18/23 tablet vomiting #10 tabs meloxicam 15 mg tablet 15 mg PO DAILY 7 days #7 tabs 02/04/24 ibuprofen 600 mg tablet 600 mg PO TID PRN pain #14 tabs 02/19/24 benzonatate 100 mg capsule 100 mg PO TID cough #30 caps 02/27/24 cetirizine 10 mg tablet (Zyrtec) 10 mg PO DAILY PRN allergy 02/27/24 symptoms #30 tabs bisacodyl 5 mg tablet,delayed 10 mg (2 x 5 mg) PO BEDTIME #180 04/13/24 release (Dulcolax (bisacodyl)) tabs esomeprazole magnesium 40 mg 40 mg PO DAILY #30 caps 04/13/24 capsule,delayed release (Nexium) azithromycin 250 mg tablet See Rx Instructions PO .COMPLEX #6 04/20/24 tabs ketorolac 10 mg tablet 10 mg PO Q8H PRN pain #10 tabs 04/29/24 metoclopramide HCl 5 mg tablet 5 mg PO .T.i.d. PRN nausea and 04/29/24 (Reglan) vomiting #10 tabs Allergies Allergy/AdvReac Type Severity Reaction Status Date / Time [place] And Derivatives Allergy Intermediate hives Verified 05/08/24 22:08 [CITRUS] shellfish derived Allergy Intermediate HIVES Verified 05/08/24 22:08 [SHELLFISH DERIVED] SWOLLEN FACE No Known Drug Allergies Allergy Unknown none Verified 05/03/24 20:14 SEAFOOD Allergy Severe ANGIOEDEMA Uncoded 05/08/24 22:08 Review of Systems Review of Systems: Yes all other systems are reviewed and are negative PMFSH Past Medical History Medical History Sessile serrated polyp of colon Family history of systemic lupus erythematosus Polyarthralgia Depression Essential hypertension Impaired fasting glucose Mid back pain on left side Insomnia Vitamin D deficiency Gastric ulcer Esophagitis Heartburn Lumbago with sciatica, left side Blurred vision, bilateral Obesity (BMI 30-39.9) Surgical History Hx of esophagogastroduodenoscopy Hx of colonoscopy Family History Family History Father History of renal dialysis Chronic kidney disease (CKD) Substance use disorder Mental health disorder Mother Substance use disorder Mental health disorder Brother Mental health disorder Brother Mental health disorder Brother Mental health disorder Brother Mental health disorder Sister Mental health disorder Sister Mental health disorder Paternal Aunt Crohn's disease Social History Social History Household Members: Family and Other Household Members Other:: Aunt Housing: Apartment Are you a primary career development director to a significant other at home: No Do you presently have visiting nurse or other home services: No Alcohol intake: never Patient Tobacco Use Status: Never used Tobacco e-Cigarette/Vaping Use: Former Use Second Hand Smoke Exposure: Yes Advance Directives: Yes Advance Directives on File: Yes Advance Directives Date on File: 08/26/22 Do you have a plan to hurt others: No Plan Patient : No service: No Current occupational status: employed 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[employer] Sexual orientation: Lesbian/Lomas/Homosexual Cognitive needs: No Hearing needs: No Vision needs: No Physical Exam ED Vital Signs: Vital Signs - 24 hr 05/08/24 22:07 05/09/24 00:23 05/09/24 02:07 Temperature 98.1 F 97.9 F 98.0 F Pulse Rate 93 88 85 Respiratory Rate 16 16 16 Blood Pressure 115/103 H 126/67 119/58 L Pulse Oximetry 98 95 99 Oxygen Delivery Method Room Air Room Air Room Air 05/09/24 06:06 05/09/24 06:29 Temperature 98.3 F Pulse Rate 81 81 Respiratory Rate 18 18 Blood Pressure 125/54 L 125/54 L Pulse Oximetry 97 97 Oxygen Delivery Method Room Air Room Air BMI result Body Mass Index 44.2 Const Other: The patient is awake and alert. The patient seemed photophobic. The patient had a normal mental status and did not seem toxic. HENMT Other: Face is symmetrical. Mucous membranes moist. Neck Other: The patient was moving the neck easily Resp Effort & Inspection: normal respiratory effort Auscultation: clear to auscultation bilaterally Cardio Rate: regular rate Rhythm: regular rhythm Heart sounds: S1 normal heart sound present and S2 normal heart sound present Skin General skin exam: no rashes or lesions noted Neuro Other: The patient was awake and alert with a normal mental status. Speech was clear. Moving all 4 extremities normally. The patient seems grossly neurologically intact. Extrem Other: No peripheral edema Medications Administered Discontinued Medications Generic Name Dose Route Start Last Admin Trade Name Freq PRN Reason Stop Dose Admin Diphenhydramine HCl 50 mg 05/09/24 01:15 05/09/24 01:58 Diphenhydramine Hcl 50 Mg/Ml Vial IVPUSH 05/09/24 01:16 50 mg ONCE ONE Administration Sodium Chloride 1,000 mls @ 999 mls/hr 05/09/24 01:30 05/09/24 03:00 Ns IV 05/09/24 02:30 Infused .Q1H1M ALEX Infusion Ketorolac Tromethamine 15 mg 05/09/24 01:15 05/09/24 01:58 Ketorolac Tromethamine 15 Mg/Ml Vial IVPUSH 05/09/24 01:16 15 mg ONCE ONE Administration Prochlorperazine Edisylate 10 mg 05/09/24 01:15 05/09/24 01:58 Prochlorperazine Edisylate 10 Mg/2 Ml Vial IVPUSH 05/09/24 01:16 10 mg ONCE ONE Administration Medical Decision Making Medical Decision Making [facility] Narrative: The patient is a 28-year-old who presents for evaluation of a headache. The patient has a history of previous emergency room visits for headaches. The patient has had 3 recent visits for headaches. On April 29, little over a week ago, the patient had a negative head CT here. A review of previous emergency room visits show forehead CTs in the last 2 years. The patient was treated symptomatically for a headache with ketorolac, prochlorperazine, and diphenhydramine as well as a L of IV normal saline. The patient fell asleep after receiving treatment and was observed for several hours. Ultimately the patient was awake he felt comfortable driving home. Ultimately the patient said that they only felt slightly better but well enough to go home. The patient is advised to contact their primary care doctor for referral to a headache specialist. Discharge Plan Discharge Clinical Impression: Headache Patient Disposition: Home, Self-Care Additional Instructions: Please try to rest when you get home. Please plan on following up with your regular doctor to discuss referral to a neurologist or other headache specialist. Return to the emergency room if worse. Prescriptions: No Action amlodipine 5 mg tablet 5 mg PO BID Qty: 180 3RF mirtazapine 15 mg tablet 15 mg PO BEDTIME lidocaine 5 % adhesive patch,medicated 1 patch topical DAILY Qty: 15 0RF Rx Instructions: leave on most painful area for up to 12 hrs ondansetron 4 mg tablet,disintegrating 4 mg PO Q8H PRN (Reason: nausea and vomiting) Qty: 10 0RF ibuprofen 600 mg tablet 600 mg PO TID PRN (Reason: pain) Qty: 14 0RF Rx Instructions: Do not use with meloxicam azithromycin 250 mg tablet See Rx Instructions PO .COMPLEX Qty: 6 0RF Rx Instructions: For 250 mg dose pack: take 500 mg today (day 1), then 250 mg for 4 days (days 2-5) ketorolac 10 mg tablet 10 mg PO Q8H PRN (Reason: pain) Qty: 10 0RF Rx Instructions: Do not use this medication with naproxen, ibuprofen or any NSAIDs, only Tylenol if needed metoclopramide HCl [Reglan] 5 mg tablet 5 mg PO .T.i.d. PRN (Reason: nausea and vomiting) Qty: 10 0RF Rx Instructions: Take together with Toradol p.r.n. migraine sertraline 100 mg tablet 100 mg PO DAILY cetirizine [Zyrtec] 10 mg tablet 10 mg PO DAILY PRN (Reason: allergy symptoms) Qty: 30 0RF benzonatate 100 mg capsule 100 mg PO TID Qty: 30 0RF albuterol sulfate 90 mcg/actuation HFA aerosol inhaler 2 puff inhalation Q6H PRN (Reason: shortness of breath or wheezing) Qty: 6.7 0RF meloxicam 15 mg tablet 15 mg PO DAILY 7 Days Qty: 7 0RF sertraline 25 mg tablet 25 mg PO DAILY Citrucel 500 mg tablet 500 mg PO DAILY Qty: 90 2RF Rx Instructions: take it with full glass of water bisacodyl [Dulcolax (bisacodyl)] 5 mg tablet,delayed release (DR/EC) 10 mg PO BEDTIME Qty: 180 4RF esomeprazole magnesium [Nexium] 40 mg capsule,delayed release(DR/EC) 40 mg PO DAILY Qty: 30 5RF methylphenidate HCl [Concerta] 36 mg tablet extended release 24hr 36 mg PO QAM Referrals: Gauri Samano MD [Primary Care Provider] - (headache) Interventions: ED Discharge Assessment Last Done: 05/09/24 06:29 Discharge Date/Time: 05/09/24 06:30 Print Language: Ukrainian
[2024-05-09] MEDS: Prochlorperazine Edisylate 10 MG/2 ML VIAL IVPUSH (01:58)
[2024-05-09] MEDS: 0.9 % Sodium Chloride 1,000 ML 999 ML IV (01:58)
[2024-05-09] MEDS: Ketorolac Tromethamine 15 MG/ML VIAL IVPUSH (01:58)
[2024-05-09] MEDS: diphenhydrAMINE HCL 50 MG/ML VIAL IVPUSH (01:58)
[2024-05-09 02:07] VITALS: BP 119/58; PULSE 85; RESP 16; TEMP 36.7; O2SAT 99
[2024-05-09 06:06] VITALS: BP 125/54; PULSE 81; RESP 18; O2SAT 97
[2024-05-09 06:29] VITALS: BP 125/54; PULSE 81; RESP 18; TEMP 36.8; O2SAT 97
== END 2024-05-09 06:30 | disposition home or self-care (01) ==
PROVIDERS: Emergency Provider Emergency Medicine; PCP Internal Medicine
DX: R51.9 Headache, unspecified (principal); M54.2 Cervicalgia; H53.149 Visual discomfort, unspecified; Z79.899 Other long term (current) drug therapy
CPT/HCPCS: 96360; 96374; 96375; 99284; 99285; J0737; J1200; J1885

== ENCOUNTER 2024-07-14 14:43 | Outpatient (AMB) | payer SELFPAY ==
[2024-07-14 14:48] VITALS: BP 128/84; PULSE 94; O2SAT 96; BMI 43.3
--- NOTE | 2024-07-14 14:48 | A.OFFVIS_ITS ---
Vital Signs 07/14/24 14:48 Height 5 ft 3 in Weight 244 lb 11.41 oz BMI 43.3 BP 128/84 Blood Pressure Location Lt brachial Position Sitting Pulse 94 Pulse Source Pulse Oximeter Pulse Oximetry (%) 96 Oxygen Delivery Method Room Air Intake Visit Reasons: Follow up 3 month Intake Note: Jw presents in office today for a scheduled 3 mos FUV. CC; Jw has multiple ED admits since last visit. Labs ordered via ED. Pt was rx'd dulcolax at their last visit. Pt reports having slight improvements since their last visit. However, pt does report having intermittent sx which are worse some days than others. Pt does report having abd (LUQ) pain as well as L flank pain which seems to be associated with constipation and diarrhea. Rx for dulcolax was a refill at their last visit. Pt recently switched to nexium per their PCP. Pt reports that this switch has been therapeutic. Agricultural Scientist Required: No Allergies [place] And Derivatives [CITRUS] Allergy (Intermediate, Verified 07/19/24 13:18) hives shellfish derived [SHELLFISH DERIVED] Allergy (Intermediate, Verified 07/19/24 13:18) HIVES SWOLLEN FACE No Known Drug Allergies Allergy (Unknown, Verified 07/19/24 13:18) none seafood Adverse Reaction (Severe, Verified 07/19/24 13:18) Angioedema HPI HPI Follow up 3 month: Details: LAST VISIT: Heartburn Postprandial epigastric pain Postprandial diarrhea Hepatic steatosis Constipation Plan Stop Senokot start Dulcolax. Increase fluid intake and activity to promote better bowel motility. Stop pantoprazole and start Nexium every morning half an hour before breakfast. Avoid dietary triggers and late night snacking. Staying upright for minimum 3 hours after meals discussed patient. Stressed importance of losing weight as well. Follow-up in the office in 3 months, sooner needed basis. Patient is agreeable to this plan and verbalizes understanding of instructions. He was given the opportunity to ask questions and all questions answered. ? Thank you for allowing me to participate in his care Medications New bisacodyl (Dulcolax (bisacodyl)) 10 mg (2 x 5 mg) PO BEDTIME 180 tabs 4RF esomeprazole magnesium (Nexium) 40 mg PO DAILY 30 caps 5RF K21.9 Discontinued pantoprazole Discontinued Reason: Doctor's Order 40 mg PO DAILY@0630 90 tabs 2RF sennosides (senna) Discontinued Reason: Doctor's Order 17.2 mg (2 x 8.6 mg) PO BEDTIME 60 tabs 3RF constipation TODAY'S VISIT Patient is here today for follow-up. Patient reports that he has been doing fairly well, however he states that over the summer he was seen in the ER multiple times for migraine headaches. Patient states that he was switched by her PCP to Nexium and reports that her symptoms are improving. Patient tries to avoid dietary triggers. Reports that he occasionally will snack late at night, however avoids eating large meals before bedtime. Patient denies any nausea or vomiting. Denies dyspepsia, dysphagia or odynophagia. Abdominal discomfort bloating improved since started taking Dulcolax daily. Patient denies any melena, hematochezia, unintentional weight loss or ribbon like stools. [facility] Medical History (Updated 07/19/24 @ 13:53 by Gauri Samano MD) Headache disorder Sessile serrated polyp of colon Family history of systemic lupus erythematosus Polyarthralgia Depression Essential hypertension Impaired fasting glucose Mid back pain on left side Insomnia Vitamin D deficiency Gastric ulcer Esophagitis Heartburn Lumbago with sciatica, left side Blurred vision, bilateral Obesity (BMI 30-39.9) Surgical History Hx of esophagogastroduodenoscopy Hx of colonoscopy Family History Father History of renal dialysis Chronic kidney disease (CKD) Substance use disorder Mental health disorder Mother Substance use disorder Mental health disorder Brother Mental health disorder Brother Mental health disorder Brother Mental health disorder Brother Mental health disorder Sister Mental health disorder Sister Mental health disorder Paternal Aunt Crohn's disease Social History Household Members: Family and Other Household Members Other:: Aunt Housing: Apartment Are you a primary career technical education instructor to a significant other at home: No Do you presently have visiting nurse or other home services: No Alcohol intake: never Patient Tobacco Use Status: Never used Tobacco e-Cigarette/Vaping Use: Former Use Second Hand Smoke Exposure: Yes Advance Directives Date on File: 08/26/22 service: No Current occupational status: employed 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 [employer] Sexual orientation: Lesbian/Lomas/Homosexual Cognitive needs: No Hearing needs: No Vision needs: No Female Reproductive History Menstrual Age of Menarche: 13 Review of Systems Const Denies weight gain and Denies weight loss ENT Reports no additional complaints, Denies dysphagia and Denies odynophagia Card Reports no additional complaints Resp Reports no additional complaints GI Reports abdominal pain (LUQ), Denies belching, Denies melena, Reports bloating, Denies change in bowel habits, Reports constipation, Denies dysphagia, Denies excessive flatus, Denies dyspepsia, Reports heartburn (occasional), Denies diarrhea, Denies loose stools, Denies nausea, Denies odynophagia and Denies vomiting Reports no additional complaints Musc Reports no additional complaints Neuro Reports no additional complaints Psych Reports no additional complaints Endo Reports no additional complaints Physical Exam Vital Signs: Last Vital Signs Pulse 94 07/14/24 14:48 BP 128/84 07/14/24 14:48 Pulse Ox 96 07/14/24 14:48 Oxygen Delivery Method Room Air 07/14/24 14:48 BMI result Body Mass Index 43.3 Const General: healthy appearing and no acute distress Nutritional Appearance: obese Orientation/consciousness: patient oriented x3 Resp Effort & Inspection: normal respiratory effort, able to speak in complete sentences, no tracheal deviation and symmetric chest movement Auscultation: clear to auscultation bilaterally Cardio Rate: regular rate GI Inspection: Yes normal to inspection, No distended and Yes obesity Palpation (GI): Soft to palpation, not firm, nontender and No hepatosplenomegaly present Auscultation: normal bowel sounds General: Yes no CVA tenderness Back/Spine/Pelvis Back: no CVA tenderness Skin General skin exam: elasticity normal, turgor normal and dry skin Neuro General: patient oriented x3 Psych Appearance: grossly normal Mental Status: mental status grossly normal Assessment & Plan Assessment & Plan (1) Heartburn: Code(s): R12 - Heartburn Category: Medical (2) Postprandial epigastric pain: Code(s): R10.13 - Epigastric pain (3) Postprandial diarrhea: Code(s): K52.9 - Noninfective gastroenteritis and colitis, unspecified (4) Hepatic steatosis: Code(s): K76.0 - Fatty (change of) liver, not elsewhere classified Plan Continue Dulcolax daily. Increase fluid intake and activity to promote better bowel motility. Long discussion with patient about dietary triggers avoidance. Continue Nexium every morning. Avoid eating late at night. Staying upright for minimum 3 hours after meals discussed with patient. Patient will follow-up in 6 months, sooner on as needed basis. He is agreeable to plan of care and verbalizes understanding of instructions. He was given the opportunity to ask questions and all questions answered. Thank you for allowing me to participate in his care Medications: Refilled bisacodyl (Dulcolax (bisacodyl)) 10 mg (2 x 5 mg) PO BEDTIME 180 tabs 4RF esomeprazole magnesium (Nexium) 40 mg PO DAILY 30 caps 5RF K21.9 - Gastro- esophageal reflux disease without esophagitis Discontinued metoclopramide HCl Take together with Toradol p.r.n. migraine Discontinued Reason: Patient no longer taking 5 mg PO .T.i.d. PRN 10 tabs 0RF nausea and vomiting ondansetron Discontinued Reason: Stopped on Transfer 4 mg PO Q8H PRN 10 tabs 0RF nausea and vomiting Coding Level of Care Code Est Pt Level 3 (65953) Diagnoses Heartburn R12 Postprandial epigastric pain R10.13 Postprandial diarrhea K52.9 Hepatic steatosis K76.0 Time Spent (min) 30 Comment 20 minutes spent with patient and additional 10 minutes spent reviewing his records
== END 2024-07-14 15:12 | disposition home or self-care (01) ==
PROVIDERS: PCP Internal Medicine; Visit Provider Nurse Practitioner Family
DX: R12 Heartburn (principal); K52.9 Noninfective gastroenteritis and colitis, unspecified; K76.0 Fatty (change of) liver, not elsewhere classified
CPT/HCPCS: 99213

== ENCOUNTER → 2024-07-14 14:43 | Outpatient (BNVA) | payer SELFPAY | PROVIDERS: PCP Internal Medicine; Visit Provider Nurse Practitioner Family | DX: R12 Heartburn (principal); R10.13 Epigastric pain; K52.9 Noninfective gastroenteritis and colitis, unspecified; K76.0 Fatty (change of) liver, not elsewhere classified | CPT/HCPCS: 99212 ==

== ENCOUNTER 2024-07-19 13:13 | Outpatient (AMB) | payer OTHER, SELFPAY ==
[2024-07-19 13:18] VITALS: BP 136/80; PULSE 85; O2SAT 96; BMI 43.6
--- NOTE | 2024-07-19 13:18 | A.OFFPC_ITS ---
Vital Signs 07/19/24 13:18 Height 5 ft 3 in Weight 246 lb BMI 43.6 BP 136/80 Blood Pressure Location Lt brachial Position Sitting Pulse 85 Pulse Source Pulse Oximeter Pulse Oximetry (%) 96 Oxygen Delivery Method Room Air Intake Visit Reasons: ED F/U Intake Note: Pt is here today for her ED f/u Allergies [place] And Derivatives [CITRUS] Allergy (Intermediate, Verified 07/19/24 13:18) hives shellfish derived [SHELLFISH DERIVED] Allergy (Intermediate, Verified 07/19/24 13:18) HIVES SWOLLEN FACE No Known Drug Allergies Allergy (Unknown, Verified 07/19/24 13:18) none seafood Adverse Reaction (Severe, Verified 07/19/24 13:18) Angioedema Medication List - Last Reconciled 07/19/24 by Gauri Samano MD albuterol sulfate 90 mcg/actuation 2 puffs inhalation Q6H PRN amlodipine 5 mg PO BID bisacodyl (Dulcolax (bisacodyl)) 10 mg (2 x 5 mg) PO BEDTIME cetirizine (Zyrtec) 10 mg PO DAILY PRN esomeprazole magnesium (Nexium) 40 mg PO DAILY ibuprofen 600 mg PO TID PRN lidocaine 5% 1 patch topical DAILY mirtazapine 15 mg PO BEDTIME sertraline 100 mg PO DAILY sertraline 25 mg PO DAILY Tobacco use date assessed: 07/19/24 Dental Screening Dental Screen Date: 07/19/24 Did you have a dental visit in the last 12 months?: Yes Did you have a dental problem in the last 6 months where you did not have access to dental care?: No Was dental information given to patient?: Patient has dentist HPI ED F/U HPI Details 28-year-old lady here today for follow-u p after recent ER visit where she was seen for frontal headaches. Has been seen several times at the emergency room for the same complaint, patient states that she only gets light symptomatic relief when given medication at the ER but headache never goes away. Describes it as a throbbing pain on above her eye, radiating to the sides, accompanied by photophobia. CT of the head was done on previous ER visits which came back negative. Patient without any neurologic deficits, no change in vision. He was prescribed Toradol, diphenhydramine, Compazine and given IV fluids which afforded only temporary relief of headache. Review of recent labs showed no evidence of anemia, no thyroid issues, blood pressure controlled on present treatment. [facility] Medical History (Updated 07/19/24 @ 13:53 by Gauri Samano MD) Headache disorder Sessile serrated polyp of colon Family history of systemic lupus erythematosus Polyarthralgia Depression Essential hypertension Impaired fasting glucose Mid back pain on left side Insomnia Vitamin D deficiency Gastric ulcer Esophagitis Heartburn Lumbago with sciatica, left side Blurred vision, bilateral Obesity (BMI 30-39.9) Surgical History Hx of esophagogastroduodenoscopy Hx of colonoscopy Family History Father History of renal dialysis Chronic kidney disease (CKD) Substance use disorder Mental health disorder Mother Substance use disorder Mental health disorder Brother Mental health disorder Brother Mental health disorder Brother Mental health disorder Brother Mental health disorder Sister Mental health disorder Sister Mental health disorder Paternal Aunt Crohn's disease Social History Household Members: Family and Other Household Members Other:: Aunt Housing: Apartment Are you a primary skin care consultant to a significant other at home: No Do you presently have visiting nurse or other home services: No Alcohol intake: never Patient Tobacco Use Status: Never used Tobacco e-Cigarette/Vaping Use: Former Use Second Hand Smoke Exposure: Yes Advance Directives Date on File: 08/26/22 service: No Current occupational status: employed Current occupation: [employer] Sexual orientation: Lesbian/Lomas/Homosexual Cognitive needs: No Hearing needs: No Vision needs: No Female Reproductive History Menstrual Age of Menarche: 13 Questionnaire Thrive Questionnaire Date Thrive assessed: 08/28/22 ROYCE-7 AMB Questionnaire ROYCE-7 Date ROYCE - 7 assessed: 09/18/23 Source: Developed by Drs. Darin Botello, Paulette Harman, Johnson Lopez and colleagues, with an educational muna from [employer] Review of Systems Const Reports no additional complaints and Reports difficulty sleeping Eyes Denies change in vision ENT Denies dizziness Card Denies chest pain at rest, Denies chest pain with activity, Denies rapid heart rate, Denies edema, Denies lightheadedness, Denies palpitations, Denies dyspnea and Denies dyspnea on exertion Resp Denies cough, Denies dyspnea and Denies dyspnea on exertion GI Reports no additional complaints Reports no additional complaints Musc Denies abnormal gait, Denies muscle cramps, Denies muscle weakness, Denies numbness, Denies radiating pain into limb, Denies stiffness and Denies tingling Neuro Denies abnormal gait, Denies dizziness, Denies numbness and Denies tingling Psych Reports no additional complaints Endo Denies palpitations Vinh/Lymph Reports no additional complaints Aller/Immun Reports no additional complaints Physical exam (Primary Care) Vital Signs: Last Vital Signs Pulse 85 07/19/24 13:18 BP 136/80 07/19/24 13:18 Pulse Ox 96 07/19/24 13:18 Oxygen Delivery Method Room Air 07/19/24 13:18 BMI result Body Mass Index 43.6 BMI Assessment/Plan discussion: High BMI High, discussed plan: lifestyle, weight reduction, dietary and physical activity Tobacco/Smoking Status: Tobacco use Status Tobacco use date assessed 07/19/24 07/19/24 13:25 Patient Tobacco Use Status Never used Tobacco 07/19/24 13:20 e-Cigarette/Vaping Use Former Use 07/19/24 13:20 Thrive Assessment: Date of Thrive Assessment Date Thrive assessed 08/28/22 07/19/24 13:20 Const Other: Alert oriented x3, morbidly obese, no acute cardiorespiratory distress noted normal gait Orientation/consciousness: patient oriented x3 HENMT Ears: external ears normal, TM's normal bilaterally and EAC's normal General nose exam: Normal external nose present Face and sinus: Yes face symmetric Mouth: Normal oral and palatal mucosa present, oropharynx normal and moist mucous membranes Eyes General: appearance normal, both eyes and all related structures Neck Neck: Yes full ROM, Yes no lymphadenopathy and Yes supple Resp Effort & Inspection: normal respiratory effort and able to speak in complete sentences Auscultation: clear to auscultation bilaterally Cardio Rate: regular rate Rhythm: regular rhythm Heart sounds: S1 normal heart sound present and S2 normal heart sound present GI Inspection: Yes obesity Palpation (GI): Soft to palpation, nontender, no guarding and no masses Auscultation: normal bowel sounds General: Yes no CVA tenderness and Yes deferred Back/Spine/Pelvis Back: no CVA tenderness and No back tenderness Skin General skin exam: no rashes or lesions noted Neuro General: patient oriented x3, gait normal, tone normal, moves all extremities, Normal light touch and pain sensation, no focal motor deficits and CN's II-XI intact bilaterally Cognition (Neuro): normal cognition Gait exam (Neuro): Normal gait present Extrem General: Yes normal to inspection, Yes full ROM, Yes no pedal edema and Yes normal gait Psych Appearance: grossly normal and well kempt Mental Status: mental status grossly normal Speech and movement: Normal speech and movement present Affect: normal affect Attitude: cooperative Thought process: Normal thought process present Thought content: Normal thought content present Coding Level of Care Code Est Pt Level 3 (37283) Diagnoses Headache disorder R51.9 Assessment & Plan Assessment & Plan (1) Headache disorder: Code(s): R51.9 - Headache, unspecified Category: Medical Plan: Has been having recurrent headaches, unrelieved with [id number] NSAIDs, Tylenol. CT of head came back negative. Will refer to neurology for further evaluation and management. Short course of Fioricet given to patient to take only as needed for acute headaches. Cautioned that medication is habit forming and should not be taken on a regular basis Orders: Referrals Neurology Referral R51.9 - Headache, unspecified Medications: New [id number] 50-300-40 mg (Fioricet) 1 cap PO Q8H PRN 10 caps 0RF headache
== END 2024-07-19 14:37 | disposition home or self-care (01) ==
PROVIDERS: PCP Internal Medicine; Visit Provider Internal Medicine
DX: R51.9 Headache, unspecified (principal)

== ENCOUNTER → 2024-07-19 13:13 | Outpatient (BNVA) | payer SELFPAY | PROVIDERS: PCP Internal Medicine; Visit Provider Internal Medicine | DX: R51.9 Headache, unspecified (principal) | CPT/HCPCS: 99212 ==

== ENCOUNTER 2024-08-06 14:50 | Outpatient (AMB) | payer OTHER, SELFPAY ==
--- NOTE | 2024-08-06 15:01 | AM.OFFWIN_ITS ---
Intake Vital Signs 08/06/24 15:02 Weight 244 lb BP 126/80 Blood Pressure Location Lt brachial Position Sitting Pulse 70 Pulse Source Pulse Oximeter Pulse Oximetry (%) 98 Oxygen Delivery Method Room Air Intake Visit Reasons: EP Sharp pain in RT ear/difficulty hearing Intake Note: Patient here for sharp pain in right ear which started this morning and is now having difficulty hearing. Patient Tobacco Use Status: Never used Tobacco Allergies [place] And Derivatives [CITRUS] Allergy (Intermediate, Verified 08/06/24 15:03) hives shellfish derived [SHELLFISH DERIVED] Allergy (Intermediate, Verified 08/06/24 15:) HIVES SWOLLEN FACE No Known Drug Allergies Allergy (Unknown, Verified 08/06/24:) none seafood Adverse Reaction (Severe, Verified 08/06/24:) Angioedema Do you need a note to return to daycare/school/sports/work: Yes HPI HPI Comments History of Present Illness Details Patient is a 28-year-old female who tells me she woke up this morning with a sharp shooting pain like there was electricity running through her right ear. She is also complaining of reduced hearing in that ear. She also has low- grade fevers with a T-max of 100.5 degrees F. she denies any head congestion cough or cold symptoms but tells me she had a little bit of a cold last week. She tells me when she was a kid she did have ear problems and ear infections but has not had 1 in a few years. [facility] Medical History (Updated 08/06/24 @ 15:17 by Elodia Nguyen PA-C) Headache disorder Sessile serrated polyp of colon Family history of systemic lupus erythematosus Polyarthralgia Depression Essential hypertension Impaired fasting glucose Mid back pain on left side Insomnia Vitamin D deficiency Gastric ulcer Esophagitis Heartburn Lumbago with sciatica, left side Blurred vision, bilateral Obesity (BMI 30-39.9) Surgical History Hx of esophagogastroduodenoscopy Hx of colonoscopy Family History Father History of renal dialysis Chronic kidney disease (CKD) Substance use disorder Mental health disorder Mother Substance use disorder Mental health disorder Brother Mental health disorder Brother Mental health disorder Brother Mental health disorder Brother Mental health disorder Sister Mental health disorder Sister Mental health disorder Paternal Aunt Crohn's disease Social History Household Members: Family and Other Household Members Other:: Aunt Housing: Apartment Are you a primary urgent care physician assistant to a significant other at home: No Do you presently have visiting nurse or other home services: No Alcohol intake: never Patient Tobacco Use Status: Never used Tobacco e-Cigarette/Vaping Use: Former Use Second Hand Smoke Exposure: Yes Advance Directives Date on File: 08/26/22 service: No Current occupational status: employed 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 [employer] Sexual orientation: Lesbian/Lomas/Homosexual Cognitive needs: No Hearing needs: No Vision needs: No Female Reproductive History Menstrual Age of Menarche: 13 Review of Systems Const All systems reviewed & are unremarkable except as noted in HPI and below Physical Exam Vital Signs: Last Vital Signs Pulse 70 08/06/24 15:02 BP 126/80 08/06/24 15:02 Pulse Ox 98 08/06/24 15:02 Oxygen Delivery Method Room Air 08/06/24 15:02 Const General: cooperative, healthy appearing, comfortable and no acute distress Orientation/consciousness: patient oriented x3 HEENT Head: Yes normal to inspection, Yes No palpable skull fracture present and Yes normocephalic Ears: hearing grossly normal bilaterally, external ears normal, TM normal on the left, EAC's normal, mastoids normal (no TTP) bilaterally and TM abnormal (right side) dull, wth effusion, erythematous and with loss of landmarks General nose exam: Normal external nose present Face and sinus: Yes normal facial exam Eyes General: appearance normal, both eyes and all related structures Neck Neck: Yes normal visual inspection, Yes full ROM, Yes no lymphadenopathy, Yes no meningeal signs, Yes trachea midline and Yes supple Resp Effort & Inspection: normal respiratory effort and able to speak in complete sentences Skin General skin exam: no rashes or lesions noted Neuro General: patient oriented x3 and no meningeal signs Assessment & Plan Assessment & Plan (1) Otitis media of right ear: Code(s): H66.91 - Otitis media, unspecified, right ear Qualifiers: Otitis media type: suppurative Chronicity: acute Recurrence: non- recurrent Spontaneous tympanic membrane rupture: without spontaneous rupture Qualified Code(s): H66.001 - Acute suppurative otitis media without spontaneous rupture of ear drum, right ear Plan: Right ear otitis media, sent antibiotics to pharmacy. Recommended if she continues to have changes in her hearing, or high fever to follow up with the emergency department or an ENT doctor Plan See above Medications: New amoxicillin 875 mg PO Q12H 14 tabs 0RF Coding Level of Care Code Est Pt Level 3 (69023) Diagnoses Non-recurrent acute suppurative otitis media of right ear without spontaneous rupture of tympanic membrane H66.001 Otitis media type: suppurative Chronicity: acute Recurrence: non-recurrent Spontaneous tympanic membrane rupture: without spontaneous rupture
[2024-08-06 15:02] VITALS: BP 126/80; PULSE 70; O2SAT 98
== END 2024-08-06 15:16 | disposition home or self-care (01) ==
PROVIDERS: PCP Internal Medicine; Visit Provider Physician Assistant
DX: H66.001 Acute suppurative otitis media without spontaneous rupture of ear drum, right ear (principal)

== ENCOUNTER → 2024-08-06 14:50 | Outpatient (BNVA) | payer OTHER, SELFPAY | PROVIDERS: PCP Internal Medicine; Visit Provider Physician Assistant | DX: H66.001 Acute suppurative otitis media without spontaneous rupture of ear drum, right ear (principal) | CPT/HCPCS: 99212 ==

== ENCOUNTER 2024-10-15 10:12 | Outpatient (AMB) | payer OTHER, SELFPAY ==
--- NOTE | 2024-10-15 10:40 | AM.OFFWIN_ITS ---
Intake Vital Signs 10/15/24 10:44 Weight 245 lb BP 122/80 Blood Pressure Location Rt brachial Position Sitting Pulse 81 Pulse Source Pulse Oximeter Pulse Oximetry (%) 97 Oxygen Delivery Method Room Air Intake Visit Reasons: EP unable to urinate 36 hours Intake Note: Patient here because she has been unable to urinate in about 36 hrs. Patient Tobacco Use Status: Never used Tobacco Allergies [place] And Derivatives [CITRUS] Allergy (Intermediate, Verified 10/15/24 10:45) hives shellfish derived [SHELLFISH DERIVED] Allergy (Intermediate, Verified 10/15/24 10:45) HIVES SWOLLEN FACE No Known Drug Allergies Allergy (Unknown, Verified 10/15/24 10:45) none seafood Adverse Reaction (Severe, Verified 10/15/24 10:45) Angioedema HPI HPI Comments History of Present Illness Details History of Present Illness - The patient is a 28-year-old female pr esenting with urinary retention and associated pain. - She reports an inability to void for 3 6 hours, noting normal dietary and hydration habits. - Pain manifests in the suprapubic regio n and lower back, accompanied by a sensation of bladder pressure. - The absence of fever, nausea, or vomit ing is confirmed. - Denies history of nephrolithiasis or r enal complications. - Yesterday, was able to urinate 2-3 angela ps, but appeared normal with no hematuria. - Significant pain and pressure in the b ladder area suggest an acute condition. Physical Exam General: Cooperative, healthy appearing, comfortable, no acute distress and well developed Orientation: Patient oriented x3 Limitations: No limitations Head: Normal to inspection Ears: Hearing grossly normal bilaterally Nose: Normal external nose present Face and sinus: Normal facial exam Eyes: Appearance normal, both eyes and all related structures Neck: Normal visual inspection and Yes full ROM Respiratory: Normal respiratory effort and able to speak in complete sentences. GI: suprapubic tenderness : negative CVA bilaterally Skin: No rashes or lesions noted Neuro: Patient oriented x3 Extremities: Normal to inspection [facility] Medical History (Updated 10/15/24 @ 11:13 by Elodia Nguyen PA-C) Headache disorder Sessile serrated polyp of colon Family history of systemic lupus erythematosus Polyarthralgia Depression Essential hypertension Impaired fasting glucose Mid back pain on left side Insomnia Vitamin D deficiency Gastric ulcer Esophagitis Heartburn Lumbago with sciatica, left side Blurred vision, bilateral Obesity (BMI 30-39.9) Surgical History Hx of esophagogastroduodenoscopy Hx of colonoscopy Family History Father History of renal dialysis Chronic kidney disease (CKD) Substance use disorder Mental health disorder Mother Substance use disorder Mental health disorder Brother Mental health disorder Brother Mental health disorder Brother Mental health disorder Brother Mental health disorder Sister Mental health disorder Sister Mental health disorder Paternal Aunt Crohn's disease Social History Household Members: Family and Other Household Members Other:: Aunt Housing: Apartment Are you a primary critical care physician assistant to a significant other at home: No Do you presently have visiting nurse or other home services: No Alcohol intake: never Patient Tobacco Use Status: Never used Tobacco e-Cigarette/Vaping Use: Former Use Second Hand Smoke Exposure: Yes Advance Directives Date on File: 08/26/22 service: No Current occupational status: employed Current occupation: [employer] Sexual orientation: Lesbian/Lomas/Homosexual Cognitive needs: No Hearing needs: No Vision needs: No Female Reproductive History Menstrual Age of Menarche: 13 Review of Systems Const All systems reviewed & are unremarkable except as noted in HPI and below Physical Exam Vital Signs: Last Vital Signs Pulse 81 10/15/24 10:44 BP 122/80 10/15/24 10:44 Pulse Ox 97 10/15/24 10:44 Oxygen Delivery Method Room Air 10/15/24 10:44 Assessment & Plan Assessment & Plan (1) Anuria: Code(s): R34 - Anuria and oliguria Plan: Plan Immediate Emergency Department evaluation is recommended due to the patient's urinary retention and accompanying pain, suggesting possible LOY and obstructive uropathy such as nephrolithiasis. Emergency diagnostic measures, including laboratory and imaging studies, should be initiated to confirm and treat urinary obstruction and prevent renal damage.Called [facility] with expect. Patient is driving herself, VSS and pt well appearing, safe to drive. Patient was informed and verbally consented to the use of an ambient scribe for clinic note documentation during this visit. Coding Level of Care Code Est Pt Level 5 (40681) Diagnoses Anuria R34
[2024-10-15 10:44] VITALS: BP 122/80; PULSE 81; O2SAT 97
== END 2024-10-15 13:32 | disposition home or self-care (01) ==
PROVIDERS: PCP Internal Medicine; Visit Provider Physician Assistant
DX: R34 Anuria and oliguria (principal)

== ENCOUNTER → 2024-10-15 10:12 | Outpatient (BNVA) | payer OTHER, SELFPAY | PROVIDERS: PCP Internal Medicine; Visit Provider Physician Assistant ==

== ENCOUNTER 2024-10-15 11:44 | Emergency (ER) | payer OTHER, SELFPAY ==
--- NOTE | 2024-10-15 11:47 | ED.GENADULT ---
HPI - General Adult General Chief complaint: Abdominal Pain Stated complaint: urinary retention Time Seen by Provider: 10/15/24 14:48 Source: patient Mode of arrival: ambulatory Limitations: no limitations History of Present Illness ED Provider: tia bella NP HPI narrative: Patient is a 28-year-old female to male transgender patient presenting to emergency department with report of urinary retention with absolutely no voiding over the past 36 hours. Presented to walk-in clinic and was referred to the emergency department for further evaluation. Endorsing pain to the suprapubic region. Denies associated fevers, chills, nausea, vomiting, back pain, hematuria, concern for sexually transmitted infections, concern for Related Data Home Medications ?Medication ?Instructions ?Recorded ?Confirmed mirtazapine 15 mg tablet 15 mg PO BEDTIME 10/22/22 07/19/24 sertraline 100 mg tablet 100 mg PO DAILY 03/19/23 07/19/24 sertraline 25 mg tablet 25 mg PO DAILY 08/18/23 07/19/24 Previous Rx's ?Medication ?Instructions ?Recorded amlodipine 5 mg tablet 5 mg PO BID #180 tabs 07/03/23 lidocaine 5 % topical patch 1 patch topical DAILY #15 ea 07/25/23 albuterol sulfate 90 mcg/actuation 2 puff inhalation Q6H PRN 08/04/23 aerosol inhaler shortness of breath or wheezing #6.7 grams ibuprofen 600 mg tablet 600 mg PO TID PRN pain #14 tabs 02/19/24 cetirizine 10 mg tablet (Zyrtec) 10 mg PO DAILY PRN allergy 02/27/24 symptoms #30 tabs bisacodyl 5 mg tablet,delayed 10 mg (2 x 5 mg) PO BEDTIME #180 07/14/24 release (Dulcolax (bisacodyl)) tabs esomeprazole magnesium 40 mg 40 mg PO DAILY #30 caps 07/14/24 capsule,delayed release (Nexium) dsildctgas-fgaprtybvvnih-sggmlfku 1 cap PO Q8H PRN headache #10 caps 07/19/24 50 mg-300 mg-40 mg capsule (Fioricet) cefuroxime axetil 250 mg tablet 250 mg PO BID #10 tabs 10/15/24 Allergies Allergy/AdvReac Type Severity Reaction Status Date / Time [place] And Derivatives Allergy Intermediate hives Verified 10/15/24 11:50 [CITRUS] shellfish derived Allergy Intermediate HIVES Verified 10/15/24 11:50 [SHELLFISH DERIVED] SWOLLEN FACE No Known Drug Allergies Allergy Unknown none Verified 10/15/24 11:50 seafood AdvReac Severe Angioedema Verified 10/15/24 11:50 Review of Systems Review of Systems: Yes all other systems are reviewed and are negative PMFSH Past Medical History Attestation statement: The following information was validated with the patient. Source: old records reviewed Medical History Headache disorder Sessile serrated polyp of colon Family history of systemic lupus erythematosus Polyarthralgia Depression Essential hypertension Impaired fasting glucose Mid back pain on left side Insomnia Vitamin D deficiency Gastric ulcer Esophagitis Heartburn Lumbago with sciatica, left side Blurred vision, bilateral Obesity (BMI 30-39.9) Surgical History Hx of esophagogastroduodenoscopy Hx of colonoscopy Family History Family History Father History of renal dialysis Chronic kidney disease (CKD) Substance use disorder Mental health disorder Mother Substance use disorder Mental health disorder Brother Mental health disorder Brother Mental health disorder Brother Mental health disorder Brother Mental health disorder Sister Mental health disorder Sister Mental health disorder Paternal Aunt Crohn's disease Social History Social History Household Members: Family and Other Household Members Other:: Aunt Housing: Apartment Are you a primary lawn care specialist to a significant other at home: No Do you presently have visiting nurse or other home services: No Alcohol intake: never Patient Tobacco Use Status: Never used Tobacco e-Cigarette/Vaping Use: Former Use Second Hand Smoke Exposure: Yes Advance Directives Date on File: 08/26/22 service: No Current occupational status: employed 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 No acute distress.?Normal affect. CVS: Heart sounds normal. Normal heart rate and rhythm.? Pulses normal.?? Respiratory: No respiratory distress.? Lung sounds clear to auscultation bilaterally?? Abdomen: Soft and non-tender. Normoactive bowel sounds. No CVAT. Skin: Skin warm and dry.? Normal skin color.? ? Extremities: No lower extremity edema.? Neuro: Moves all extremities spontaneously. Sensation intact bilaterally. Ambulates with normal steady gait. Medical Decision Making Medical Decision Making [facility] Narrative: Patient is a 28-year-old female to male transgender patient presenting from walk-in clinic with reports of urinary retention greater than 36 hours. During initial work on obtaining serum labs, exercise equipment repair technician was asked to perform a bladder scan, patient went to the bathroom and voided twice, with subsequent bladder scan of 12. When asked, they now report that they have in fact urinated over the past 36 hours just very small amounts at a time. On review of labs CBC is without leukocytosis anemia or thrombocytopenia. No significant electrolyte derangement. No LOY. Mildly elevated AST/ALT 39/32 with benign upper abdominal examination, low suspicion for acute hepatobiliary etiology. HCG is negative. Urinalysis reveals trace leukocyte esterase 1+ urine bacteria in addition to squamous epithelial cells, this may be urogenital contamination however given the urinary hesitancy and urgency will treat with a course of antibiotics and advised outpatient follow-up with primary care doctor. Encouraged to increase oral fluids over the next few days and strict return precautions especially for true urinary retention. Denies any associated back pain was, bowel dysfunction lower extremity pain or numbness. Suspicion for acute spinal pathology Differential Diagnosis Differential Diagnoses: The differential diagnosis associated with the presentation includes (See narrative above) Lab Data [facility] Lab Attestation statement: I reviewed the patient's lab results. (See narrative above) 10/15/24 12:27 10/15/24 14:14 Labs: Lab Results 10/15/24 10/15/24 10/15/24 Range/Units 12:03 12:27 14:14 WBC 9.2 (4.8-10.8) X10*3/uL RBC 4.92 (4.20-5.50) X10*6/uL Hgb 13.4 (12.0-16.0) g/dl Hct 39.1 (37.0-47.0) % MCV 79.5 L (80.0-98.0) fL MCH 27.2 (27.0-33.0) pg MCHC 34.3 (31.0-35.0) g/dl RDW 13.7 (11.0-16.0) % Plt Count 305 (160-400) X10*3/uL MPV 9.7 (9.4-12.3) fL Immature Gran % (Auto) 0.3 (0.0-0.4) % Neut % (Auto) 68.9 (45-73) % Lymph % (Auto) 26.0 (20-40) % Ballard % (Auto) 3.7 (2-11) % Eos % (Auto) 0.7 (0-4) % Baso % (Auto) 0.4 (0-2) % Lymph # (Auto) 2.4 (1.2-4.9) X10*3/uL Ballard # (Auto) 0.3 (0.1-1.2) X10*3/uL Eos # (Auto) 0.1 (0.0-0.4) X10*3/uL Baso # (Auto) 0.0 (0.0-0.2) X10*3/uL Abs Immat Gran (auto) 0.03 (0.00-0.03) X10*3/uL Absolute Neuts (auto) 6.3 (2.0-8.3) x10*3/uL Absolute Nucleated RBC 0.000 (0.0-0.012) X10*3/uL Nucleated RBC % (auto) 0.0 (0.0-0.2) /100WBC Sodium 142 (135-145) mmol/L Potassium 4.1 D (3.3-5.1) mmol/L Chloride 112 H (96-108) mmol/L Carbon Dioxide 23 (22-29) mmol/L Anion Gap 11 L (12-20) BUN 9 (9-16) mg/dL Creatinine 0.89 (0.5-1.4) mg/dL Estim Creat Clear Calc 113.1 Estimated GFR > 60 Random Glucose 154 H (60-115) mg/dL Calcium 9.0 (8.4-10.2) mg/dL Total Bilirubin 0.2 (0.0-1.0) mg/dL AST 39 H (5-31) U/L ALT 32 H (0-31) U/L Alkaline Phosphatase 94 (39-117) U/L Total Protein 7.9 (6.5-8.0) g/dL Albumin 4.2 (3.5-5.0) g/dL Urine Color Yellow Urine Appearance Cloudy Urine pH 6.0 (5.0-9.0) Ur Specific [place] 1.020 (1.005-1.025) Urine Protein Negative (Neg-Trace) mg/dL Urine Glucose (UA) Negative (Negative) mg/dL Urine Ketones Negative (Negative) mg/dL Urine Blood Negative (Negative) Urine Nitrite Negative (Negative) Ur Leukocyte Esterase Trace H (Negative) Urine RBC 0-2 (0-2) /HPF Urine WBC 0-5 (0-5) /HPF Ur Squamous Epith Cells >20 (0-2) /HPF Urine Bacteria 1+ (None Seen) Hyaline Casts 0-2 (0-2) /LPF External Record Review External record reviewed: Outpatient record Prescription Management I considered prescription management with: Antibiotic Discharge Plan Discharge Clinical Impression: Urinary tract infection Patient Disposition: Home, Self-Care Instructions: Urinary Urgency and Frequency (DC) Additional Instructions: Be sure that you were increase in the amount of water that you were consuming over the next 24-48 hours. If you are having true inability to urinate at all for prolonged period you should seek re-evaluation. If you are experiencing fevers, chills, nausea, vomiting, severe pain he should seek re-evaluation. Complete entire course of antibiotics as prescribed. Follow-up with primary care doctor Prescriptions: New cefuroxime axetil 250 mg tablet 250 mg PO BID Qty: 10 0RF No Action amlodipine 5 mg tablet 5 mg PO BID Qty: 180 3RF mirtazapine 15 mg tablet 15 mg PO BEDTIME lidocaine 5 % adhesive patch,medicated 1 patch topical DAILY Qty: 15 0RF Rx Instructions: leave on most painful area for up to 12 hrs ibuprofen 600 mg tablet 600 mg PO TID PRN (Reason: pain) Qty: 14 0RF Rx Instructions: Do not use with meloxicam sertraline 100 mg tablet 100 mg PO DAILY cetirizine [Zyrtec] 10 mg tablet 10 mg PO DAILY PRN (Reason: allergy symptoms) Qty: 30 0RF albuterol sulfate 90 mcg/actuation HFA aerosol inhaler 2 puff inhalation Q6H PRN (Reason: shortness of breath or wheezing) Qty: 6.7 0RF sertraline 25 mg tablet 25 mg PO DAILY bisacodyl [Dulcolax (bisacodyl)] 5 mg tablet,delayed release (DR/EC) 10 mg PO BEDTIME Qty: 180 4RF esomeprazole magnesium [Nexium] 40 mg capsule,delayed release(DR/EC) 40 mg PO DAILY Qty: 30 5RF txfridslmp-bbfodzoyzvzax-vblx [Fioricet] 50-300-40 mg capsule 1 cap PO Q8H PRN (Reason: headache) Qty: 10 0RF Referrals: Gauri Samano MD [Primary Care Provider] - Print Language: Korean
[2024-10-15 11:48] VITALS: BP 144/81; PULSE 80; RESP 16; TEMP 37; O2SAT 100; BMI 43.0
[2024-10-15 12:40] LABS: Appearance Urine Cloudy; Color Urine Yellow; Glucose Urine UA Negative (Negative); Leukocyte Esterase Urine Trace (Negative); Nitrite Urine Negative (Negative); UMIC TRIGGER UACC YES; Urine Blood Negative (Negative); Urine Ketones Negative (Negative); Urine Protein Negative (Neg-Trace)
[2024-10-15 12:43] LABS: Bacteria Urine 1+ (None Seen); Hyaline Casts Urine 0-2 /LPF (0-2); RBC Urine 0-2 /HPF (0-2); Squamous Epithelial Cell Urine >20 /HPF (0-2); WBC Urine 0-5 /HPF (0-5)
[2024-10-15 12:53] LABS: Basophils Percent Auto 0.4 % (0-2); Eosinophils Absolute Auto 0.1 X10*3/uL (0.0-0.4); Eosinophils Percent Auto 0.7 % (0-4); Hematocrit 39.1 % (37.0-47.0); Hemoglobin 13.4 g/dl (12.0-16.0); Imm Gran Abs Auto 0.03 X10*3/uL (0.00-0.03); Imm Gran Pct Auto 0.3 % (0.0-0.4); Lymphocytes Absolute Auto 2.4 X10*3/uL (1.2-4.9); Mean Corpuscular HGB Conc 34.3 g/dl (31.0-35.0); Mean Corpuscular Hemoglobin 27.2 pg (27.0-33.0); Mean Corpuscular Volume 79.5 fL (80.0-98.0); Mean Platelet Volume 9.7 fL (9.4-12.3); Monocytes Absolute Auto 0.3 X10*3/uL (0.1-1.2); Monocytes Percent Auto 3.7 % (2-11); Neutrophils Absolute Auto 6.3 x10*3/uL (2.0-8.3); Neutrophils Percent Auto 68.9 % (45-73); Platelet Count 305 X10*3/uL (160-400); Red Blood Count 4.92 X10*6/uL (4.20-5.50); Red Cell Distribution Width 13.7 % (11.0-16.0); White Blood Count 9.2 X10*3/uL (4.8-10.8)
[2024-10-15 14:39] LABS: Alanine Aminotransferase 32 U/L (0-31); Albumin Level 4.2 g/dL (3.5-5.0); Alkaline Phosphatase 94 U/L (39-117); Anion Gap 11 (12-20); Aspartate Amino Transferase 39 U/L (5-31); Bilirubin Total 0.2 mg/dL (0.0-1.0); Blood Urea Nitrogen 9 mg/dL (9-16); Carbon Dioxide 23 mmol/L (22-29); Chloride 112 mmol/L (96-108); Creatinine Clr Calc Pharmacy 113.1; Estimated Glomerular Filt Rate > 60; Glucose Random 154 mg/dL (60-115); Potassium 4.1 mmol/L (3.3-5.1); Sodium 142 mmol/L (135-145); Total Protein 7.9 g/dL (6.5-8.0)
[2024-10-15 14:47] VITALS: BP 133/87; PULSE 72; RESP 16; TEMP 37; O2SAT 99
[2024-10-15 14:48] LABS: HCG Quantitative < 2 mIU/mL
[2024-10-15 15:04] VITALS: BP 133/87; PULSE 72; RESP 16; TEMP 37; O2SAT 99
== END 2024-10-15 15:05 | disposition home or self-care (01) ==
PROVIDERS: Nurse Practitioner Family; Emergency Provider Emergency Medicine; PCP Internal Medicine
DX: N39.0 Urinary tract infection, site not specified (principal); R33.9 Retention of urine, unspecified; Z79.899 Other long term (current) drug therapy
CPT/HCPCS: 36415; 80053; 81001; 84702; 85025; 99212; 99282

== ENCOUNTER 2024-11-10 09:33 | Day surgery (SDC) | payer OTHER, SELFPAY ==
--- NOTE | ~2024-11-10 | FL_ITS ---
EXAMINATION: XR LUMBAR PUNCTURE CLINICAL INFORMATION: PSUEDOTUMOR CEREBRI COMPARISON: None available. TECHNIQUE: Explaining fluoroscopy-guided lumbar puncture procedure, benefits in risk, a written consent was obtained. Patient was placed prone on fluoroscopy table and low back area was cleaned and draped in usual sterile manner. A skin marker was placed overlying the L3-4 disc level . The area was then cleaned and draped in usual sterile manner. 1% lidocaine was administered puncture site. A 22-gauge 6 inch needle was then inserted from the skin intrathecally under fluoroscopy. After observing CSF return, patient was quickly placed in left lateral position and opening CSF pressure was obtained. Subsequently CSF was collected in 4 test tubes. Following CSF collection stylet was introduced into the needle and needle withdrawn. Complete hemostasis achieved at puncture site. Sterile Band-Aid was applied at puncture site postprocedure. Patient tolerated procedure extremely well. FINDINGS: On fluoroscopy images obtained there is maintained lumbar lordosis. There is needle positioned intrathecally at the L3-4 disc level. Approximately 6 mL of clear CSF fluid was collected in 4 test tubes and sent to lab for further imaging. The opening CSF pressure was 13 cm of water. FLUOROSCOPY TIME: 15 seconds DOSE AREA PRODUCT: 727.7 uGy-m2 (microgray-meter squared) FL/FL guided lumbar puncture LP IMPRESSION: Successful fluoroscopy-guided and 3-4 lumbar puncture performed without immediate complication. Opening CSF pressure 13 cm water. Electronically signed by: Enoch Long MD 11/10/2024 02:11 PM [facility]
[2024-11-10 09:59] VITALS: BP 141/99; PULSE 88; RESP 15; TEMP 36.9; O2SAT 98; BMI 43.5
[2024-11-10 10:15] LABS: UPreg QC Valid YES; Urine Pregnancy NEGATIVE (NEGATIVE)
[2024-11-10 11:40] VITALS: BP 118/76; PULSE 74; RESP 18; TEMP 36.6; O2SAT 97
[2024-11-10 11:55] VITALS: BP 117/78; PULSE 68; RESP 18; O2SAT 97
[2024-11-10 12:10] VITALS: BP 119/71; PULSE 69; RESP 18; O2SAT 97
[2024-11-10 12:21] LABS: CSF Appearance Clear, Colorless; CSF Tube # 1
[2024-11-10 12:25] VITALS: BP 127/78; PULSE 67; RESP 18; TEMP 36.6; O2SAT 99
[2024-11-10 12:31] LABS: Glucose CSF 94 mg/dL; Total Protein CSF 41.3 mg/dL (15-45)
[2024-11-10 13:00] LABS: Appearance CSF CLEAR; CSF Tube # 4; CSF Volume 1.5 ML; Color CSF COLORLESS
[2024-11-10 13:01] LABS: CSF Monos 100 %; Red Blood Cell CSF 0 MM*3; White Blood Cell CSF 2 MM*3
== END 2024-11-10 12:47 | disposition home or self-care (01) ==
LOC: HO.SSS 09:34
PROVIDERS: Physician Assistant Surgical; PCP Internal Medicine; Visit Provider Psychiatry & Neurology Neurology
PROC: 009U3ZZ Drainage of Spinal Canal, Percutaneous Approach (ICD-10-PCS; CPT 62270; principal; 2024-11-10 11:00)
DX: G93.2 Benign intracranial hypertension (principal); R51.9 Headache, unspecified; I10 Essential (primary) hypertension; K21.9 Gastro-esophageal reflux disease without esophagitis; F32.A Depression, unspecified; F84.0 Autistic disorder; F90.9 Attention-deficit hyperactivity disorder, unspecified type; Z79.899 Other long term (current) drug therapy
CPT/HCPCS: 62328; 81025; 82945; 84157; 87015; 87070; 87205; 89051; J2003

== ENCOUNTER → 2024-11-10 11:00 | Outpatient (BNV) | payer OTHER, SELFPAY | PROVIDERS: PCP Internal Medicine; Visit Provider Radiology Diagnostic Radiology | DX: G93.2 Benign intracranial hypertension (principal) | CPT/HCPCS: 62328 ==

== ENCOUNTER 2025-03-02 14:01 | Outpatient (REF) | payer OTHER, SELFPAY ==
[2025-03-02 14:15] LABS: MANUAL DIFF FLAG NO
[2025-03-02 15:19] LABS: Basophils Absolute Auto 0.1 X10*3/uL (0.0-0.2); Basophils Percent Auto 0.6 % (0-2); Eosinophils Absolute Auto 0.1 X10*3/uL (0.0-0.4); Eosinophils Percent Auto 1.1 % (0-4); Hematocrit 39.7 % (37.0-47.0); Imm Gran Abs Auto 0.02 X10*3/uL (0.00-0.03); Imm Gran Pct Auto 0.2 % (0.0-0.4); Lymphocytes Absolute Auto 2.5 X10*3/uL (1.2-4.9); Lymphocytes Percent Auto 30.2 % (20-40); Mean Corpuscular HGB Conc 32.7 g/dl (31.0-35.0); Mean Corpuscular Hemoglobin 26.7 pg (27.0-33.0); Mean Corpuscular Volume 81.5 fL (80.0-98.0); Mean Platelet Volume 9.6 fL (9.4-12.3); Monocytes Absolute Auto 0.3 X10*3/uL (0.1-1.2); Monocytes Percent Auto 3.7 % (2-11); Neutrophils Absolute Auto 5.3 x10*3/uL (2.0-8.3); Neutrophils Percent Auto 64.2 % (45-73); Platelet Count 394 X10*3/uL (160-400); Red Blood Count 4.87 X10*6/uL (4.20-5.50); Red Cell Distribution Width 13.1 % (11.0-16.0); White Blood Count 8.3 X10*3/uL (4.8-10.8)
[2025-03-02 15:50] LABS: Anion Gap 13 (12-20); Blood Urea Nitrogen 13 mg/dL (9-16); C Reactive Protein 0.92 mg/dL (< or = 0.50); Calcium 9.1 mg/dL (8.4-10.2); Carbon Dioxide 24 mmol/L (22-29); Chloride 106 mmol/L (96-108); Estimated Glomerular Filt Rate > 60; Glucose Random 154 mg/dL (60-115); Potassium 3.8 mmol/L (3.3-5.1); Sodium 139 mmol/L (135-145)
[2025-03-02 16:09] LABS: Erythrocyte Sedimentation Rate 16 MM/HR (0-20)
[2025-03-03 03:58] LABS: Lyme Abs Screen <0.90 index
== END 2025-03-02 14:02 | disposition home or self-care (01) ==
LOC: HO.LAB 14:01
PROVIDERS: PCP Internal Medicine; Visit Provider Registered Nurse
DX: R51.9 Headache, unspecified (principal)
CPT/HCPCS: 36415; 80048; 85025; 85652; 86140; 86617; 86618

== ENCOUNTER 2025-03-17 18:19 | Outpatient (REF) | payer OTHER, SELFPAY ==
--- NOTE | ~2025-03-17 | MR_ITS ---
EXAMINATION: MR BRAIN WITHOUT IV CONTRAST HISTORY: CHRONIC DAILY GASCA TECHNIQUE: Sagittal T1, and axial T1, FLAIR, T2, gradient echo, and diffusion weighted MR images of the brain were obtained. COMPARISON: There are no prior studies available for comparison. FINDINGS: There are 2 tiny white matter hyperintensities in the right centrum semiovale on the T2 and FLAIR images which are nonspecific. The brain parenchyma is otherwise unremarkable, demonstrating normal christopher/white differentiation There is no mass effect or midline shift. The ventricular system is normal in size and configuration. No intra or extra-axial fluid collections are identified. There are no foci of restricted diffusion. Normal vascular flow voids are noted in the basilar and carotid arteries. The visualized paranasal sinuses are clear. MR/MR head/brain wo con IMPRESSION: Tiny nonspecific T2 hyperintensities in the right centrum semiovale. Differential diagnostic considerations include migraine, Lyme disease, demyelinating disease, vasculitis, and small vessel ischemic disease. Electronically signed by: Darin Nobles MD 03/18/2025 07:14 AM EDT
== END 2025-03-17 18:20 | disposition home or self-care (01) ==
LOC: HO.MRI 18:19
PROVIDERS: PCP Internal Medicine; Visit Provider Registered Nurse
DX: R51.9 Headache, unspecified (principal)
CPT/HCPCS: 70551

== ENCOUNTER → 2025-03-17 18:25 | Outpatient (BNV) | payer OTHER, SELFPAY | PROVIDERS: PCP Internal Medicine; Visit Provider Radiology Diagnostic Radiology | DX: R51.9 Headache, unspecified (principal) | CPT/HCPCS: 70551 ==

== ENCOUNTER 2025-03-30 15:29 | Outpatient (REF) | payer OTHER, SELFPAY ==
[2025-03-30 16:19] LABS: C Reactive Protein 1.34 mg/dL (< or = 0.50)
[2025-03-30 17:05] LABS: Erythrocyte Sedimentation Rate 17 MM/HR (0-20)
[2025-04-04 08:44] LABS: Anti Nuclear Antibody Pattern Nuclear, Speckled; Anti Nuclear Antibody Screen POSITIVE (NEGATIVE)
[2025-04-05 08:59] LABS: IgA 317 mg/dL (47-310); IgG 1049 mg/dL (600-1640); IgM 125 mg/dL (50-300)
== END 2025-03-30 15:30 | disposition home or self-care (01) ==
LOC: HO.LAB 15:29
PROVIDERS: PCP Internal Medicine; Visit Provider Registered Nurse
DX: R51.9 Headache, unspecified (principal); R90.82 White matter disease, unspecified
CPT/HCPCS: 36415; 82784; 85652; 86038; 86039; 86140; 86334

== ENCOUNTER 2025-03-31 13:47 | Emergency (ER) | payer OTHER, SELFPAY ==
--- NOTE | ~2025-03-31 | CT_ITS ---
CLINICAL HISTORY: RLQ tenderness CT abdomen and pelvis with contrast Comparison: CT - CT ABDOMEN PELVIS W IV CON - 03/31/25 17:[address]/REG/SR - CT ABDOMEN PELVIS W IV CON - 05/23/23 20:24 EDT Findings: The lung bases are clear. Unremarkable gallbladder and solid organs. No urolithiasis. No bowel obstruction, pneumoperitoneum, or pneumatosis. Multiple mildly prominent subcentimeter mesenteric lymph nodes. Pelvic contents unremarkable. Normal appendix. No acute fracture. IMPRESSION: Findings consistent with mesenteric adenitis in the appropriate clinical setting. This document has been electronically signed by: Yu Snider MD on 03/31/2025 18:34:13
[2025-03-31 14:05] VITALS: BP 150/103; PULSE 97; RESP 20; TEMP 36.9; O2SAT 97; BMI 42.5
--- NOTE | 2025-03-31 14:11 | ED.ABDPAIN ---
HPI - Abdominal Pain General Chief Complaint: Abdominal Pain Stated Complaint: Lower abd pain Time Seen by Provider: 03/31/25 14:55 Source: patient, RN notes reviewed and old records reviewed Mode of arrival: ambulatory Limitations: no limitations History of Present Illness ED Provider: Raj HPI narrative: Patient is a 29-year-old assigned a female at who identifies as male with history of obesity, esophagitis, gastric ulcer, HTN, polyarthralgia, depression, headache disorder presenting to the emergency department with complaint of right lower quadrant pain since 11:00 a.m. today. States pain began while he was at work but denies any strenuous activities at the time. States he was able to have a bowel movement which was without bright red blood or melena, this increased his pain and felt as though he had to strain to have bowel movement. Also reports pain with urination. Associated nausea without vomiting. Denies fevers. Denies prior abdominal surgeries. Denies history of constipation. Did not take any medications prior to arrival. MD elicited complaint: abdominal pain Related Data Home Medications ?Medication ?Instructions ?Recorded ?Confirmed mirtazapine 15 mg tablet 15 mg PO BEDTIME 10/22/22 07/19/24 sertraline 100 mg tablet 100 mg PO DAILY 03/19/23 07/19/24 sertraline 25 mg tablet 25 mg PO DAILY 08/18/23 07/19/24 Previous Rx's ?Medication ?Instructions ?Recorded amlodipine 5 mg tablet 5 mg PO BID #180 tabs 07/03/23 lidocaine 5 % topical patch 1 patch topical DAILY #15 ea 07/25/23 albuterol sulfate 90 mcg/actuation 2 puff inhalation Q6H PRN 08/04/23 aerosol inhaler shortness of breath or wheezing #6.7 grams ibuprofen 600 mg tablet 600 mg PO TID PRN pain #14 tabs 02/19/24 cetirizine 10 mg tablet (Zyrtec) 10 mg PO DAILY PRN allergy 02/27/24 symptoms #30 tabs bisacodyl 5 mg tablet,delayed 10 mg (2 x 5 mg) PO BEDTIME #180 07/14/24 release (Dulcolax (bisacodyl)) tabs esomeprazole magnesium 40 mg 40 mg PO DAILY #30 caps 07/14/24 capsule,delayed release (Nexium) [id number] 1 cap PO Q8H PRN headache #10 caps 07/19/24 50 mg-300 mg-40 mg capsule (Fioricet) cefuroxime axetil 250 mg tablet 250 mg PO BID #10 tabs 10/15/24 polyethylene glycol 3350 17 gram 17 g PO DAILY #14 ea 03/31/25 oral powder packet (Miralax) sennosides 8.6 mg-docusate sodium 1 tab-cap PO BEDTIME #14 tabs 03/31/25 50 mg tablet (Senna with Docusate Sodium) Allergies Allergy/AdvReac Type Severity Reaction Status Date / Time [place] And Derivatives Allergy Intermediate hives Verified 03/31/25 14:09 (CITRUS) shellfish derived (SHELLFISH Allergy Intermediate HIVES Verified 03/31/25 14:09 DERIVED) SWOLLEN FACE seafood AdvReac Severe Angioedema Verified 03/31/25 14:09 Review of Systems Review of Systems As per HPI Yes all other systems are reviewed and are negative Constitutional: Reports as per HPI PMFSH Past Medical History Medical History Headache disorder Sessile serrated polyp of colon Family history of systemic lupus erythematosus Polyarthralgia Depression Essential hypertension Impaired fasting glucose Mid back pain on left side Insomnia Vitamin D deficiency Gastric ulcer Esophagitis Heartburn Lumbago with sciatica, left side Blurred vision, bilateral Obesity (BMI 30-39.9) Surgical History Hx of esophagogastroduodenoscopy Hx of colonoscopy Family History Family History Father History of renal dialysis Chronic kidney disease (CKD) Substance use disorder Mental health disorder Mother Substance use disorder Mental health disorder Brother Mental health disorder Brother Mental health disorder Brother Mental health disorder Brother Mental health disorder Sister Mental health disorder Sister Mental health disorder Paternal Aunt Crohn's disease Social History Social History Household Members: Family and Other Household Members Other:: Aunt Housing: Apartment Are you a primary animal daycare provider to a significant other at home: No Do you presently have visiting nurse or other home services: No Alcohol intake: never Patient Tobacco Use Status: Never used Tobacco e-Cigarette/Vaping Use: Former Use Second Hand Smoke Exposure: Yes Advance Directives: Yes Advance Directives Information Provided: Yes Advance Directives on File: Yes Advance Directives Date on File: 08/26/22 Do you have a plan to hurt others: No Plan service: No Current occupational status: employed 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 Blood pressure elevated. Heart rate normal. Respiratory rate normal. Temperature normal. Oxygen saturation normal. Const General: cooperative, healthy appearing and no acute distress Orientation/consciousness: oriented to person, oriented to place, oriented to time and patient oriented x3 Limitations: no limitations HENMT Head: Yes normocephalic and Yes atraumatic Ears: external ears normal General nose exam: Normal external nose present Face and sinus: Yes face symmetric Mouth: oropharynx normal and moist mucous membranes Throat: Yes uvula midline Eyes Pupils: Equal, round and reactive pupils present Neck Neck: Yes normal visual inspection and Yes supple Resp Effort & Inspection: normal respiratory effort and able to speak in complete sentences Auscultation: clear to auscultation bilaterally Cardio Rate: regular rate Rhythm: regular rhythm Heart sounds: S1 normal heart sound present and S2 normal heart sound present GI Palpation (GI): Soft to palpation and Tenderness to palpation present (GI) in the RLQ Auscultation: normoactive bowel sounds General: Yes CVA tenderness on the right Back/Spine/Pelvis Back: CVA tenderness Skin General skin exam: elasticity normal and turgor normal Neuro General: oriented to person, oriented to place, oriented to time, patient oriented x3, moves all extremities, no focal motor deficits and CN's II-XI intact bilaterally Cranial nerves: Yes Equal, round and reactive pupils present Cognition (Neuro): normal cognition Extrem General: Yes full ROM, Yes no pedal edema and Yes no calf tenderness Psych Mental Status: mental status grossly normal Affect: normal affect Thought process: Normal thought process present Course Course Course Narrative: This is an RME: Additional HPI, ROS, PE not included below will be deferred to primary provider. RME assessment and note performed by: Mary Schulz PA-C This is a [id number] assigned at patient who presents to the ER with complaints of lower abdominal pain since this morning. Also reporting pain with urination. Reports as though they feel like they are going to pass out. Plan: EKG, labs Medical Decision Making Medical Decision Making [facility] Narrative: Patient is a 29-year-old assigned a female at who identifies as male with history of obesity, esophagitis, gastric ulcer, HTN, polyarthralgia, depression, headache disorder presenting to the emergency department with complaint of right lower quadrant pain since 11:00 a.m. today. On exam patient is awake, A+Ox3, VS WNL, afebrile, normal neurological exam without focal deficits, physical exam findings as above. Given reported symptoms and physical exam findings, initial differential includes but is not limited to appendicitis, UTI, renal calculi, obstruction, constipation. Labs notable for no leukocytosis, no anemia, no significant electrolyte abnormalities, no evidence of LOY, mildly elevated transaminases with normal T bili, negative hCG. Urinalysis is without evidence of infection. CT A/P notable for mesenteric adenitis, moderate stool. My interpretation is in agreement with the radiologist's interpretation. Results discussed with the patient being transferred. Will discharge patient home on docusate senna and MiraLax. Follow-up with PCP. Return precautions discussed. Patient verbalized understanding of and agreement with plan. Differential Diagnosis Differential Diagnoses: The differential diagnosis associated with the presentation includes As per [facility] Admission/Observation Consideration of admission/observation: Escalation of care including admission/observation considered Patient would have been admitted to the hospital had their work up had any findings where hospital admission was appropriate and their clinical presentation warranted hospital admission. Lab Data [facility] Lab Attestation statement: I reviewed the patient's lab results. as per [facility] 03/31/25 14:20 03/31/25 14:20 Labs: Lab Results 03/31/25 03/31/25 Range/Units 14:20 16:07 WBC 9.6 (4.8-10.8) X10*3/uL RBC 4.96 (4.20-5.50) X10*6/uL Hgb 13.1 (12.0-16.0) g/dl Hct 40.4 (37.0-47.0) % MCV 81.5 (80.0-98.0) fL MCH 26.4 L (27.0-33.0) pg MCHC 32.4 (31.0-35.0) g/dl RDW 13.2 (11.0-16.0) % Plt Count 364 (160-400) X10*3/uL MPV 9.1 L (9.4-12.3) fL Immature Gran % (Auto) 0.7 H (0.0-0.4) % Neut % (Auto) 69.3 (45-73) % Lymph % (Auto) 25.6 (20-40) % [place] % (Auto) 3.7 (2-11) % Eos % (Auto) 0.3 (0-4) % Baso % (Auto) 0.4 (0-2) % Lymph # (Auto) 2.5 (1.2-4.9) X10*3/uL [place] # (Auto) 0.4 (0.1-1.2) X10*3/uL Eos # (Auto) 0.0 (0.0-0.4) X10*3/uL Baso # (Auto) 0.0 (0.0-0.2) X10*3/uL Abs Immat Gran (auto) 0.07 H (0.00-0.03) X10*3/uL Absolute Neuts (auto) 6.7 (2.0-8.3) x10*3/uL Absolute Nucleated RBC 0.000 (0.0-0.012) X10*3/uL Nucleated RBC % (auto) 0.0 (0.0-0.2) /100WBC Sodium 140 (135-145) mmol/L Potassium 4.0 (3.3-5.1) mmol/L Chloride 108 (96-108) mmol/L Carbon Dioxide 23 (22-29) mmol/L Anion Gap 13 (12-20) BUN 14 (9-16) mg/dL Creatinine 0.78 (0.5-1.4) mg/dL Estim Creat Clear Calc 127.1 Estimated GFR > 60 Random Glucose 115 (60-115) mg/dL Calcium 9.4 (8.4-10.2) mg/dL Magnesium 1.9 (1.6-2.6) mg/dL Total Bilirubin 0.2 (0.0-1.0) mg/dL Direct Bilirubin < 0.2 (0.0-0.5) mg/dL AST 35 H (5-31) U/L ALT 34 H (0-31) U/L Alkaline Phosphatase 89 (39-117) U/L Total Protein 7.8 (6.5-8.0) g/dL Albumin 4.7 (3.5-5.0) g/dL Lipase 19 (8-78) U/L Beta HCG, Quant < 2 mIU/mL Urine Color Yellow Urine Appearance Cloudy Urine pH 7.0 (5.0-9.0) Ur Specific [place] 1.025 (1.005-1.025) Urine Protein Negative (Neg-Trace) mg/dL Urine Glucose (UA) Negative (Negative) mg/dL Urine Ketones Trace (Negative) mg/dL Urine Blood Negative (Negative) Urine Nitrite Negative (Negative) Ur Leukocyte Esterase Negative (Negative) Independent Interpretation I performed an independent interpretation of an: CT Scan Interpretation: CT A/P notable for mesenteric adenitis, moderate stool burden. Radiology Impression Discussion of test interpretation with radiology: I have reviewed the radiologist's reading. Radiologist Impression: CT abdomen and pelvis with contrast Comparison: CT - CT ABDOMEN PELVIS W IV CON - 03/31/25 17:[address]/REG/SR - CT ABDOMEN PELVIS W IV CON - 05/23/23 20:24 EDT Findings: The lung bases are clear. Unremarkable gallbladder and solid organs. No urolithiasis. No bowel obstruction, pneumoperitoneum, or pneumatosis. Multiple mildly prominent subcentimeter mesenteric lymph nodes. Pelvic contents unremarkable. Normal appendix. No acute fracture. IMPRESSION: Findings consistent with mesenteric adenitis in the appropriate clinical setting. External Record Review External record reviewed: Inpatient record, Office record and Outpatient record Prescription Management I considered prescription management with: Other Medications Administered Discontinued Medications Generic Name Dose Route Start Last Admin Trade Name Freq PRN Reason Stop Dose Admin Sodium Chloride 1,000 mls @ 999 mls/hr 03/31/25 15:15 03/31/25 16:31 Ns IV 03/31/25 16:15 Infused .Q1H1M ALEX Infusion Iohexol 100 ml 03/31/25 18:23 03/31/25 18:24 Iohexol 350 Mg/Ml 100 Ml Infus..Btl IV 03/31/25 18:24 85 ml ONCE ONE Administration Ketorolac Tromethamine 15 mg 03/31/25 15:39 03/31/25 15:53 Ketorolac Tromethamine 15 Mg/Ml Vial IVPUSH 03/31/25 15:40 15 mg ONCE ONE Administration Ondansetron HCl 4 mg 03/31/25 15:39 03/31/25 15:53 Ondansetron Hcl 4 Mg/2 Ml Vial IVPUSH 03/31/25 15:40 4 mg ONCE ONE Administration Discharge Plan Discharge Clinical Impression: Mesenteric adenitis Constipation Qualifiers: Constipation type: unspecified constipation type Qualified Code(s): K59.00 - Constipation, unspecified Patient Disposition: Home, Self-Care Instructions: Constipation (DC), Mesenteric Adenitis (ED) Additional Instructions: You were evaluated in the emergency department today for abdominal pain. Your CT scan showed evidence of mesenteric adenitis which is an inflammation of the lymph nodes in your abdomen. Your CT scan also showed a moderate amount of stool in your colon. Treatment for the mesenteric adenitis is to drink plenty of fluids, can also take Tylenol or ibuprofen as needed for pain per package instructions. You are being prescribed medications to assist with your constipation to make it easier to have a bowel movement. We recommend that you follow-up with your primary care provider this week. Return to the emergency department with worsening pain, fevers, persistent vomiting, blood in your vomit or stool, or any other new or concerning symptoms. Prescriptions: New polyethylene glycol 3350 [Miralax] 17 gram powder in packet 17 g PO DAILY Qty: 14 0RF sennosides-docusate sodium [Senna with Docusate Sodium] 8.6-50 mg tablet 1 tab-cap PO BEDTIME Qty: 14 0RF No Action amlodipine 5 mg tablet 5 mg PO BID Qty: 180 3RF mirtazapine 15 mg tablet 15 mg PO BEDTIME lidocaine 5 % adhesive patch,medicated 1 patch topical DAILY Qty: 15 0RF Rx Instructions: leave on most painful area for up to 12 hrs cefuroxime axetil 250 mg tablet 250 mg PO BID Qty: 10 0RF ibuprofen 600 mg tablet 600 mg PO TID PRN (Reason: pain) Qty: 14 0RF Rx Instructions: Do not use with meloxicam sertraline 100 mg tablet 100 mg PO DAILY cetirizine [Zyrtec] 10 mg tablet 10 mg PO DAILY PRN (Reason: allergy symptoms) Qty: 30 0RF albuterol sulfate 90 mcg/actuation HFA aerosol inhaler 2 puff inhalation Q6H PRN (Reason: shortness of breath or wheezing) Qty: 6.7 0RF sertraline 25 mg tablet 25 mg PO DAILY bisacodyl [Dulcolax (bisacodyl)] 5 mg tablet,delayed release (DR/EC) 10 mg PO BEDTIME Qty: 180 4RF esomeprazole magnesium [Nexium] 40 mg capsule,delayed release(DR/EC) 40 mg PO DAILY Qty: 30 5RF [id number]-yjskjwmgfvnoj-[id number] [Fioricet] 50-300-40 mg capsule 1 cap PO Q8H PRN (Reason: headache) Qty: 10 0RF Print Language: [place]
[2025-03-31 14:34] LABS: MANUAL DIFF FLAG NO
[2025-03-31 14:37] LABS: Basophils Percent Auto 0.4 % (0-2); Eosinophils Percent Auto 0.3 % (0-4); Hematocrit 40.4 % (37.0-47.0); Hemoglobin 13.1 g/dl (12.0-16.0); Imm Gran Abs Auto 0.07 X10*3/uL (0.00-0.03); Imm Gran Pct Auto 0.7 % (0.0-0.4); Lymphocytes Absolute Auto 2.5 X10*3/uL (1.2-4.9); Lymphocytes Percent Auto 25.6 % (20-40); Mean Corpuscular HGB Conc 32.4 g/dl (31.0-35.0); Mean Corpuscular Hemoglobin 26.4 pg (27.0-33.0); Mean Corpuscular Volume 81.5 fL (80.0-98.0); Mean Platelet Volume 9.1 fL (9.4-12.3); Monocytes Absolute Auto 0.4 X10*3/uL (0.1-1.2); Monocytes Percent Auto 3.7 % (2-11); Neutrophils Absolute Auto 6.7 x10*3/uL (2.0-8.3); Neutrophils Percent Auto 69.3 % (45-73); Platelet Count 364 X10*3/uL (160-400); Red Blood Count 4.96 X10*6/uL (4.20-5.50); Red Cell Distribution Width 13.2 % (11.0-16.0); White Blood Count 9.6 X10*3/uL (4.8-10.8)
[2025-03-31 14:49] LABS: Alanine Aminotransferase 34 U/L (0-31); Albumin Level 4.7 g/dL (3.5-5.0); Alkaline Phosphatase 89 U/L (39-117); Anion Gap 13 (12-20); Aspartate Amino Transferase 35 U/L (5-31); Bilirubin Direct < 0.2 mg/dL (0.0-0.5); Bilirubin Total 0.2 mg/dL (0.0-1.0); Blood Urea Nitrogen 14 mg/dL (9-16); Calcium 9.4 mg/dL (8.4-10.2); Carbon Dioxide 23 mmol/L (22-29); Chloride 108 mmol/L (96-108); Creatinine Clr Calc Pharmacy 127.1; Estimated Glomerular Filt Rate > 60; Glucose Random 115 mg/dL (60-115); Lipase 19 U/L (8-78); Magnesium 1.9 mg/dL (1.6-2.6); Sodium 140 mmol/L (135-145); Total Protein 7.8 g/dL (6.5-8.0)
[2025-03-31 14:59] LABS: HCG Quantitative < 2 mIU/mL
[2025-03-31] MEDS: 0.9 % Sodium Chloride 1,000 ML 999 ML IV (15:08)
[2025-03-31] MEDS: Ketorolac Tromethamine 15 MG/ML VIAL IVPUSH (15:53)
[2025-03-31] MEDS: ondansetron HCL 4 MG/2 ML VIAL IVPUSH (15:53)
--- NOTE | 2025-03-31 16:02 | PC.NURSE ---
Pt reporting suddenly at 11am at work she started to have extreme lower abdominal pain that radiated down her right leg. Pt reporting burning with urination, only able to void small amounts at this time. Pt denies any vaginal discharge, new sexual partners, denies any abnormal bleeding. Pt reporting slight nausea at this time.
[2025-03-31 16:15] VITALS: BP 112/77; PULSE 85; RESP 20; TEMP 36.6; O2SAT 99
[2025-03-31 16:15] LABS: Appearance Urine Cloudy; Color Urine Yellow; Glucose Urine UA Negative (Negative); Leukocyte Esterase Urine Negative (Negative); Nitrite Urine Negative (Negative); Specific Gravity - Urine 1.025 (1.005-1.025); Urine Blood Negative (Negative); Urine Ketones Trace mg/dL (Negative); Urine Protein Negative (Neg-Trace)
[2025-03-31] MEDS: iohexoL 350 MG/ML 100 ML INFUS..BTL IV (18:24)
[2025-03-31 18:41] VITALS: BP 126/78; PULSE 81; RESP 16; TEMP 36.6; O2SAT 100
[2025-03-31 18:57] VITALS: BP 126/78; PULSE 81; RESP 16; TEMP 36.6; O2SAT 100
== END 2025-03-31 18:58 | disposition home or self-care (01) ==
PROVIDERS: Physician Assistant Medical; Emergency Provider Emergency Medicine; PCP Internal Medicine
DX: I88.0 Nonspecific mesenteric lymphadenitis (principal); K59.00 Constipation, unspecified; R10.2 Pelvic and perineal pain; R10.31 Right lower quadrant pain; R11.0 Nausea; Z79.899 Other long term (current) drug therapy
CPT/HCPCS: 36415; 74177; 80048; 80076; 81003; 83690; 83735; 84702; 85025; 96361; 96374; 96375; 99284; 99285; J1885; J2405; Q9967

== ENCOUNTER → 2025-03-31 15:41 | Outpatient (BNV) | payer OTHER, SELFPAY | PROVIDERS: Emergency Provider Emergency Medicine; PCP Internal Medicine; Visit Provider Radiology Diagnostic Radiology | DX: I88.0 Nonspecific mesenteric lymphadenitis (principal) | CPT/HCPCS: 74177 ==

== ENCOUNTER 2025-04-04 14:16 | Outpatient (REF) | payer OTHER, SELFPAY ==
[2025-04-05 21:09] LABS: Anti DNA DS Antibody <1 IU/mL
== END 2025-04-04 14:17 | disposition home or self-care (01) ==
LOC: HO.LAB 14:16
PROVIDERS: PCP Internal Medicine; Visit Provider Registered Nurse
DX: R51.9 Headache, unspecified (principal); R90.82 White matter disease, unspecified
CPT/HCPCS: 36415; 86225

== ENCOUNTER 2025-05-03 15:47 | Outpatient (AMB) | payer OTHER, SELFPAY ==
--- NOTE | 2025-05-03 15:56 | MHC.OFFVIS ---
Vital Signs 05/03/25 15:56 05/03/25 16:14 Height 5 ft 3 in BP 166/104 H Position Sitting Pulse 105 H Intake Visit Reasons: 4 Weeks Allergies [place] And Derivatives (CITRUS) Allergy (Intermediate, Verified 05/03/25 15:56) hives shellfish derived (SHELLFISH DERIVED) Allergy (Intermediate, Verified 05/03/25 15:56) HIVES SWOLLEN FACE seafood Adverse Reaction (Severe, Verified 05/03/25 15:56) Angioedema Medication List - Last Reconciled 05/03/25 by Fatou Del Castillo CNP albuterol sulfate 90 mcg/actuation 2 puffs inhalation Q6H PRN amitriptyline 50 mg PO BEDTIME bisacodyl (Dulcolax (bisacodyl)) 10 mg (2 x 5 mg) PO BEDTIME cyclobenzaprine 10 mg PO BEDTIME esomeprazole magnesium (Nexium) 40 mg PO DAILY guanfacine ER 4 mg PO DAILY mirtazapine 15 mg PO BEDTIME ondansetron 4 mg PO Q8H polyethylene glycol 3350 (Miralax) 17 grams PO DAILY sennosides-docusate sodium 8.6-50 mg (Senna with Docusate Sodium) 1 tab-cap PO BEDTIME sertraline 100 mg PO DAILY verapamil ER 200 mg PO DAILY 30 days HPI Comments Details: 29-year-old assigned female at who identifies as male diagnosed with autism spectrum disorder a few years ago, ADHD treated with guanfacine (treated with Concerta in the past), depression, and hypertension with daily headaches since 04/2024. No illness, head trauma, or triggering event. CAT scans in 08/2022, 04/2023, 05/2023, and 04/2024 were all normal. He had some headaches in the past. He is not on any hormonal therapy. Family history negative. Headaches were about the same. Headaches happened each day, although severity varied and some days were better than others. Pain generally worse toward the end of the day. Pain could be all over head, but was now happening more often toward upper left back side of head. Headaches were associated with photophobia, sonophobia, dizziness, nausea, sometimes vomiting, and occasional numbness to right side of face that has been happening on and off since 04/2024. Dizziness and lightheaded feeling when changing positions quickly. He was having some ?twitching? in neck that improved some about 2 hours after taking cyclobenzaprine, but effects seemed to wear off mid-day. He also reported some intermittent numbness in hands, R > L, that could last 5-10 minutes up to full day which started about 3 weeks ago. Body feels weak. He saw rheumatology earlier this month and was diagnosed with fibromyalgia. [facility] Medical History (Updated 05/03/25 @ 16:53 by Fatou Del Castillo CNP) Pseudotumor cerebri White matter disease, unspecified Headache disorder Sessile serrated polyp of colon Family history of systemic lupus erythematosus Polyarthralgia Depression Essential hypertension Impaired fasting glucose Mid back pain on left side Insomnia Vitamin D deficiency Gastric ulcer Esophagitis Heartburn Lumbago with sciatica, left side Blurred vision, bilateral Obesity (BMI 30-39.9) Surgical History Hx of esophagogastroduodenoscopy Hx of colonoscopy Family History Father History of renal dialysis Chronic kidney disease (CKD) Substance use disorder Mental health disorder Mother Substance use disorder Mental health disorder Brother Mental health disorder Brother Mental health disorder Brother Mental health disorder Brother Mental health disorder Sister Mental health disorder Sister Mental health disorder Paternal Aunt Crohn's disease Social History Household Members: Family and Other Household Members Other:: Aunt Housing: Apartment Are you a primary career development engineer to a significant other at home: No Do you presently have visiting nurse or other home services: No Alcohol intake: never Patient Tobacco Use Status: Never used Tobacco e-Cigarette/Vaping Use: Former Use Second Hand Smoke Exposure: Yes Advance Directives Date on File: 08/26/22 service: No Current occupational status: employed 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 [employer] Sexual orientation: Lesbian/Lomas/Homosexual Cognitive needs: No Hearing needs: No Vision needs: No Female Reproductive History Menstrual Age of Menarche: 13 Review of Systems Const Denies chills, Denies daytime sleepiness, Reports difficulty sleeping, Reports fatigue, Denies fever(s), Denies frequent falls, Reports headache(s), Denies increased appetite, Denies poor appetite, Denies snoring, Denies weakness, Denies weight gain and Denies weight loss Eyes Denies loss of vision ENT Denies vertigo, Reports dizziness, Reports headache(s) and Reports neck pain Card Denies chest pain at rest, Denies chest pain with activity, Denies syncope, Denies leg edema, Denies palpitations, Denies dyspnea and Denies dyspnea on exertion Resp Denies cough, Denies dyspnea, Denies dyspnea on exertion and Denies snoring GI Denies abdominal pain, Denies constipation, Denies heartburn, Denies diarrhea and Denies nausea Denies urinary frequency, Denies urinary incontinence and Denies urinary urgency Musc Denies abnormal gait, Denies back pain, Reports myalgias, Denies arthralgias, Reports neck pain, Reports numbness and Reports tingling Neuro Denies abnormal gait, Denies vertigo, Reports dizziness, Denies syncope, Denies frequent falls, Reports headache(s), Denies lack of coordination, Denies loss of vision, Reports memory loss, Reports numbness, Denies Other visual disturbances, Denies restless legs, Denies seizure-like activity, Reports tingling, Denies paresthesias, Denies tremor(s) and Denies weakness Psych Reports anxiety, Reports depression, Denies auditory hallucinations, Reports memory loss and Denies visual hallucinations Endo Reports fatigue and Denies palpitations Physical Exam Const Other: General Appearance:? normal, in no acute distress. Heart:? S1, S2 normal, no murmurs. Lungs:? clear anteriorly and posteriorly. Musculoskeletal:? normal. Extremities:? no edema. Psych:? alert, oriented, cognitive function intact, cooperative with exam. Neuro Other: Abnormal Neurological Findings:?Sensitive to light. Mental Status: alert and oriented X 3. Normal attention, orientation, memory, and affect. Cranial Nerves: Pupils are equal, round, and reactive to light. External ocular muscles are intact. Visual tyson are full, no ptosis. Face is symmetrical, no facial weakness or droop. Facial sensations are normal. Tongue protrudes in midline. Palate elevates symmetrically. Shoulder shrugging is normal Motor Examination: Normal muscle tone, bulk and strength. No atrophy or fasciculations. No drift of the extended upper extremities. DTR 2+. Plantars are flexor. Straight Leg Raisin degrees. Sensory Exam: Normal light touch, temperature, pinprick, vibration, and joint-position sensations. Rhomberg sign is absent. Coordination: No ataxia. No titubation. Adayao-ot-bgmx, brom-wcmc-bwka test, and rapid alternating movements were normal. Gait Exam: Within normal limits. Cerebellar Signs: Mbkfym-xp-rtem and brnr-dr-brmp is normal. No dysdiadochokinesia. Extrapyramidal System: No tremor, rigidity with normal facial expressions. No bradykinesia. No bradyphrenia. Normal arm swing and posture. No propulsion or retropulsion. Speech: Normal. No dysphasia or dysarthria. Results Reviewed Results Reviewed: Laboratory Tests 03/02/25 03/30/25 04/04/25 14:14 15:39 14:25 WBC 8.3 RBC 4.87 Hgb 13.0 Hct 39.7 MCV 81.5 MCH 26.7 L MCHC 32.7 RDW 13.1 Plt Count 394 D MPV 9.6 ESR 16 Sodium 139 Potassium 3.8 Chloride 106 Carbon Dioxide 24 Anion Gap 13 BUN 13 Creatinine 0.69 Estimated GFR > 60 Random Glucose 154 H Calcium 9.1 C-Reactive Protein 0.92 H IgG Total 1049 IgA Total 317 H IgM 125 ALVARADO Interpretation SEE NOTE KERI Screen POSITIVE A KERI Titer 1:160 H KERI Titer 2 TNP KERI Titer 3 TNP KERI Pattern Nuclear, Speckled A KERI Pattern 2 TNP KERI Pattern 3 TNP Double Strand DNA Ab <1 Lyme Screen IgG & IgM <0.90 Lyme Progressive Test TNP LP at [facility] [place] [facility] [place] OP 13cm Labs 02/2025 CRP 0.92, ESR 16, glucose 154, lyme negative MRI brain at [facility] [place]25: Tiny nonspecific T2 hyperintensities in the right centrum semiovale Assessment & Plan Assessment & Plan (1) Chronic daily headache: Code(s): R51.9 - Headache, unspecified Category: Medical Plan: Lab results reviewed. Saw rheumatology for positive KERI 1:160 speckled on 04/29/2025, office note reviewed - diagnosed with fibromyalgia. Increase verapamil ER 240mg 1 capsule daily. Increase cyclobenzaprine 10mg 1 tablet twice a day. Continue amitriptyline 50mg 1 tablet at bedtime. Continue ondansetron 4mg 1 tablet as needed for nausea/vomiting. Start naproxen 500mg 1 tablet q12h as needed for headaches. FMLA paperwork completed. (2) Hypertension: Onset Date: Unknown Code(s): I10 - Essential (primary) hypertension Category: Medical Qualifiers: Hypertension type: unspecified Qualified Code(s): I10 - Essential (primary) hypertension Plan: Advised to follow up with PCP for management of hypertension. This may be contributing to headaches, and controlling blood pressure may help to reduce headaches. Verapamil dose increased, which may also help some with blood pressure. Plan Meds tried: topiramate, amitriptyline, propranolol, verapamil, cyclobenzaprine, naproxen Medications: New amitriptyline 50 mg PO BEDTIME 90 tabs 1RF 90 days verapamil ER 240 mg PO DAILY 90 caps 1RF 90 days ondansetron 4 mg PO DAILY PRN 14 tabs 5RF nausea and vomiting 30 days cyclobenzaprine 10 mg PO BID 60 tabs 2RF 30 days naproxen 500 mg PO BID PRN 30 tabs 1RF pain 30 days Discontinued verapamil ER Discontinued Reason: Doctor's Order 200 mg PO DAILY 30 days 30 caps 1RF ondansetron Discontinued Reason: Order 4 mg PO Q8H amitriptyline Discontinued Reason: Order 50 mg PO BEDTIME Coding Level of Care Code Est Pt Level 4 (98203) Diagnoses Chronic daily headache R51.9 Hypertension, unspecified type I10 Hypertension type: unspecified
[2025-05-03 16:14] VITALS: BP 166/104; PULSE 105
== END 2025-05-03 16:34 | disposition home or self-care (01) ==
LOC: HO.HSM 15:47
PROVIDERS: PCP Internal Medicine; Referring Provider Internal Medicine; Visit Provider Registered Nurse
DX: R51.9 Headache, unspecified (principal); I10 Essential (primary) hypertension
CPT/HCPCS: 99214

== ENCOUNTER → 2025-05-03 15:47 | Outpatient (BNVA) | payer OTHER, SELFPAY | PROVIDERS: PCP Internal Medicine; Referring Provider Internal Medicine; Visit Provider Registered Nurse | DX: I10 Essential (primary) hypertension (principal); R51.9 Headache, unspecified; M79.7 Fibromyalgia; R11.2 Nausea with vomiting, unspecified; Z79.899 Other long term (current) drug therapy | CPT/HCPCS: 99212 ==

== ENCOUNTER 2025-05-12 13:23 | Outpatient (AMB) | payer OTHER, SELFPAY ==
[2025-05-12 13:30] VITALS: BP 124/72; PULSE 97; BMI 45.8
--- NOTE | 2025-05-12 13:30 | A.OFFVIS_ITS ---
Vital Signs 05/12/25 13:30 Height 5 ft 3 in Weight 258 lb 6.108 oz BMI 45.8 BP 124/72 Blood Pressure Location Rt brachial Position Sitting Pulse 97 Pulse Source Monitor Intake Visit Reasons: Follow up-BP Check Associate Merchandise Planner Required: No Allergies [place] And Derivatives (CITRUS) Allergy (Intermediate, Verified 05/12/25 13:32) hives shellfish derived (SHELLFISH DERIVED) Allergy (Intermediate, Verified 05/12/25 13:32) HIVES SWOLLEN FACE seafood Adverse Reaction (Severe, Verified 05/12/25 13:32) Angioedema Medication List - Last Reconciled 05/12/25 by Abigail Fields, EYEGLASS ASSEMBLER-C albuterol sulfate 90 mcg/actuation 2 puffs inhalation Q6H PRN amitriptyline 50 mg PO BEDTIME 90 days bisacodyl (Dulcolax (bisacodyl)) 10 mg (2 x 5 mg) PO BEDTIME cyclobenzaprine 10 mg PO BID 30 days esomeprazole magnesium (Nexium) 40 mg PO DAILY methylphenidate HCl ER (Concerta) 18 mg PO DAILY mirtazapine 15 mg PO BEDTIME naproxen 500 mg PO BID PRN 30 days ondansetron 4 mg PO DAILY PRN 30 days polyethylene glycol 3350 (Miralax) 17 grams PO DAILY sennosides-docusate sodium 8.6-50 mg (Senna with Docusate Sodium) 1 tab-cap PO BEDTIME sertraline 100 mg PO DAILY verapamil ER 240 mg PO DAILY 90 days HPI HPI Follow up-BP Check: Details: Jw is a 29 yr who identifies as being male, with PMH of morbid obesity, impaired fasting glucose, obesity, fibromyalgia, chronic headaches, HTN who presents for follow-up. Last prior visit to our office was 09/25/2023. Today he reports that his primary issue is continual daily headaches. At times they are worse than other times. No known aggravating or alleviating factors. Blood pressure elevated at times. No chest discomfort at rest or during activity. No shortness of breath, palpitations, presyncope, syncope, PND, orthopnea or edema. Activity limited by fibromyalgia and headaches. Taking all meds as directed. Has been gaining weight. REPLACED BY [facility] Medical History Pseudotumor cerebri White matter disease, unspecified Headache disorder Sessile serrated polyp of colon Family history of systemic lupus erythematosus Polyarthralgia Depression Essential hypertension Impaired fasting glucose Mid back pain on left side Insomnia Vitamin D deficiency Gastric ulcer Esophagitis Heartburn Lumbago with sciatica, left side Blurred vision, bilateral Obesity (BMI 30-39.9) Surgical History Hx of esophagogastroduodenoscopy Hx of colonoscopy Family History Father History of renal dialysis Chronic kidney disease (CKD) Substance use disorder Mental health disorder Mother Substance use disorder Mental health disorder Brother Mental health disorder Brother Mental health disorder Brother Mental health disorder Brother Mental health disorder Sister Mental health disorder Sister Mental health disorder Paternal Aunt Crohn's disease Social History Household Members: Family and Other Household Members Other:: Aunt Housing: Apartment Are you a primary manager progressive care to a significant other at home: No Do you presently have visiting nurse or other home services: No Alcohol intake: never Patient Tobacco Use Status: Never used Tobacco e-Cigarette/Vaping Use: Former Use Second Hand Smoke Exposure: Yes Advance Directives Date on File: 08/26/22 service: No Current occupational status: employed 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 [employer] Sexual orientation: Lesbian/Lomas/Homosexual Cognitive needs: No Hearing needs: No Vision needs: No Female Reproductive History Menstrual Age of Menarche: 13 Review of Systems Const All systems reviewed & are unremarkable except as noted in HPI and below Eyes Details: daily headache ENT Denies dizziness Card Denies chest pain, Denies chest pain at rest, Denies chest pain with activity, Denies rapid heart rate, Denies pedal edema, Denies edema, Denies leg edema, Denies lightheadedness, Denies palpitations, Denies dyspnea, Denies dyspnea on exertion and Denies orthopnea Resp Denies cough, Denies dyspnea and Denies dyspnea on exertion GI Denies hematochezia and Denies change in stool character Musc Details: generalized body pain from fibromyalgia Denies abnormal gait, Denies limited range of motion, Denies muscle cramps, Denies muscle weakness, Denies numbness, Denies radiating pain into limb, Denies stiffness and Denies tingling Neuro Denies abnormal gait, Denies dizziness, Denies numbness and Denies tingling Endo Denies palpitations Physical Exam Vital Signs: Last Vital Signs Pulse 97 05/12/25 13:30 BP 124/72 05/12/25 13:30 BMI result Body Mass Index 45.8 Const Other: wearing dark glasses due to reported headache. Lights dimmed in room General: cooperative, healthy appearing and no acute distress Orientation/consciousness: patient oriented x3 Neck Neck: Yes normal visual inspection Resp Effort & Inspection: normal respiratory effort Auscultation: clear to auscultation bilaterally, no rales, no rhonchi and no wheezes Cardio Rate: regular rate Rhythm: regular rhythm Heart sounds: S1 normal heart sound present, S2 normal heart sound present, no gallops, no murmurs and no rubs Neuro General: patient oriented x3 Extrem General: Yes normal to inspection and No no pedal edema Psych Appearance: grossly normal Mental Status: mental status grossly normal Speech and movement: Normal speech and movement present Office Procedures EKG Details: Today, read by me, sinus rhythm, nonspecific T wave abnormality, rate 97, Qtc 462ms [id number], Complete Assessment & Plan Assessment & Plan (1) Essential hypertension: Code(s): I10 - Essential (primary) hypertension Category: Medical Plan: Blood pressure goal less than 130/80. History of uncontrolled hypertension in the past while on hormone therapy which was then stopped. Was not seen in our office between 09/25/2023 and today. Had been on amlodipine and now is on verapamil 240 mg daily. Blood pressure very good at this time, 124/72. He is reporting continual chronic headaches. It is most likely these are migraine type headaches and not related to uncontrolled hypertension. When blood pressure is elevated or if headache is severe blood pressure may be high adding to the headache symptom. In all it is important to continue with good blood pressure control. Prior testing included echocardiogram done on 10/16/2021 shows normal study, EF 60-65%. Renal ultrasound done on 10/16/2021 was unremarkable, there is no direct comment regarding renal artery stenosis. A home sleep study done 10/01/2022 was normal. At this time no med changes will be made. Continue verapamil reviewed low-salt diet, weight loss, activity as tolerated. Periodic home blood pressures. Recommend he stay off hormonal therapy which may have added to the level of uncontrolled hypertension previously seen. Cardiology follow-up in 6 months, sooner if needed. (2) Abnormal EKG: Code(s): R94.31 - Abnormal electrocardiogram [ECG] [EKG] Category: Medical Plan: EKG reviewed and show chronic T-wave abnormality V3 through V6. Echo normal. Stress echocardiogram done 10/17/2023 with exercise 7 minutes, no echo evidence of ischemia. (3) Morbid obesity: Code(s): E66.01 - Morbid (severe) obesity due to excess calories Category: Medical Plan: As above Plan Time spent on chart review, documentation, interview and assessment Coding Level of Care Code Est Pt Level 3 (29485) Complex EM visit Add On G2211 Diagnoses Essential hypertension I10 Abnormal EKG R94.31 Morbid obesity E66.01 CPT Codes EKG - CPT: [id number], Complete ([id number]) Time Spent (min) 24
== END 2025-05-12 13:59 | disposition home or self-care (01) ==
LOC: HO.HCS 13:24
PROVIDERS: PCP Internal Medicine; Visit Provider Nurse Practitioner Family
DX: I10 Essential (primary) hypertension (principal); R94.31 Abnormal electrocardiogram [ECG] [EKG]; E66.01 Morbid (severe) obesity due to excess calories
CPT/HCPCS: 93010; 99213

== ENCOUNTER → 2025-05-12 13:23 | Outpatient (BNVA) | payer OTHER, SELFPAY | PROVIDERS: PCP Internal Medicine; Visit Provider Nurse Practitioner Family | DX: I10 Essential (primary) hypertension (principal); E66.01 Morbid (severe) obesity due to excess calories; R94.31 Abnormal electrocardiogram [ECG] [EKG] | CPT/HCPCS: 93005; 99212 ==

== ENCOUNTER 2025-05-20 13:19 | Outpatient (AMB) | payer OTHER, SELFPAY ==
--- NOTE | 2025-05-20 13:23 | MHC.OFFVIS ---
Vital Signs 05/20/25 13:24 Height 5 ft 3 in Weight 258 lb BMI 45.7 BP 124/68 Blood Pressure Location Rt brachial Position Sitting Pulse 94 Pulse Source Pulse Oximeter Pulse Oximetry (%) 98 Oxygen Delivery Method Room Air Intake Visit Reasons: f/u 6m Intake Note: Est pt for mgmt of GERD + CIC. Seen @ [facility] [place] [facility] 03/2025. CC; C.O. constipation + diarrhea intermittently, LUQ and epigastric pain, nausea without vomiting. Pt also reports having frequent migraines recently which their neurologist is monitoring. Pt understands that some of their sx may be related to their migraines. 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 Increase fluid intake and activity to promote better bowel motility. Long discussion with patient about dietary triggers avoidance. Continue Nexium every morning. Avoid eating late at night. Staying upright for minimum 3 hours after meals discussed with patient. Patient will follow-up in 6 months, sooner on as needed basis. He is agreeable to plan of care and verbalizes understanding of instructions. He was given the opportunity to ask questions and all questions answered. ? Thank you for allowing me to participate in his care Refilled bisacodyl (Dulcolax (bisacodyl)) 10 mg (2 x 5 mg) PO BEDTIME 180 tabs 4RF esomeprazole magnesium (Nexium) 40 mg PO DAILY 30 caps 5RF K21.9 Discontinued metoclopramide HCl Take together with Toradol p.r.n. migraine Discontinued Reason: Patient no longer taking 5 mg PO .T.i.d. PRN 10 tabs 0RF nausea and vomiting ondansetron Discontinued Reason: Stopped on Transfer 4 mg PO Q8H PRN 10 tabs 0RF nausea and vomiting TODAY'S VISIT Patient is here today for follow-up. Patient reports that since the last visit he has been feeling worse. Patient stopped taking Dulcolax and became constipated. Just started taking it again. Patient gained 12 lb since last visit. Seen in the ER in March for constipation. Patient was encouraged to take his laxative as. Epigastric pain and dyspepsia occasionally depending on what he eats. Denies dysphagia or odynophagia. Currently he is taking Nexium and for the most part is effective. Patient admits that he does not have any particular diet. Has not followed low FODMAP diet for quite some time. Patient denies any nausea or vomiting. Denies melena, hematochezia, unintentional weight loss or ribbon like stools. [facility] Medical History (Updated 05/20/25 @ 19:40 by Lesly Nguyen [facility]) Transaminitis Chronic idiopathic constipation Pseudotumor cerebri White matter disease, unspecified Headache disorder Sessile serrated polyp of colon Family history of systemic lupus erythematosus Polyarthralgia Depression Essential hypertension Impaired fasting glucose Mid back pain on left side Insomnia Vitamin D deficiency Gastric ulcer Esophagitis Heartburn Lumbago with sciatica, left side Blurred vision, bilateral Obesity (BMI 30-39.9) Surgical History Hx of esophagogastroduodenoscopy Hx of colonoscopy Family History Father History of renal dialysis Chronic kidney disease (CKD) Substance use disorder Mental health disorder Mother Substance use disorder Mental health disorder Brother Mental health disorder Brother Mental health disorder Brother Mental health disorder Brother Mental health disorder Sister Mental health disorder Sister Mental health disorder Paternal Aunt Crohn's disease Social History Household Members: Family and Other Household Members Other:: Aunt Housing: Apartment Are you a primary cardiac care unit nurse to a significant other at home: No Do you presently have visiting nurse or other home services: No Alcohol intake: never Patient Tobacco Use Status: Never used Tobacco e-Cigarette/Vaping Use: Former Use Second Hand Smoke Exposure: Yes Advance Directives Date on File: 08/26/22 service: No Current occupational status: employed 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 [employer] Sexual orientation: Lesbian/Lomas/Homosexual Cognitive needs: No Hearing needs: No Vision needs: No Female Reproductive History Menstrual Age of Menarche: 13 Review of Systems Const Reports weight gain and Denies weight loss ENT Reports no additional complaints, Denies dysphagia and Denies odynophagia Card Reports no additional complaints Resp Reports no additional complaints GI Reports abdominal pain (LUQ), Denies belching, Denies melena, Reports bloating, Denies change in bowel habits, Reports constipation, Denies dysphagia, Denies excessive flatus, Denies dyspepsia, Reports heartburn (occasional), Denies diarrhea, Denies loose stools, Denies nausea, Denies odynophagia and Denies vomiting Reports no additional complaints Musc Reports no additional complaints Neuro Reports no additional complaints Psych Reports no additional complaints Endo Reports no additional complaints Physical Exam Vital Signs: Last Vital Signs Pulse 94 05/20/25 13:24 BP 124/68 05/20/25 13:24 Pulse Ox 98 05/20/25 13:24 Oxygen Delivery Method Room Air 05/20/25 13:24 BMI result Body Mass Index 45.7 Const General: healthy appearing and no acute distress Nutritional Appearance: obese Orientation/consciousness: patient oriented x3 Resp Effort & Inspection: normal respiratory effort, able to speak in complete sentences, no tracheal deviation and symmetric chest movement Auscultation: clear to auscultation bilaterally Cardio Rate: regular rate GI Inspection: Yes normal to inspection, No distended and Yes obesity Palpation (GI): Soft to palpation, not firm, nontender and No hepatosplenomegaly present Auscultation: normal bowel sounds General: Yes no CVA tenderness Back/Spine/Pelvis Back: no CVA tenderness Skin General skin exam: elasticity normal, turgor normal and dry skin Neuro General: patient oriented x3 Psych Appearance: grossly normal Mental Status: mental status grossly normal Assessment & Plan Assessment & Plan (1) Heartburn: Code(s): R12 - Heartburn Category: Medical (2) Chronic idiopathic constipation: Code(s): K59.04 - Chronic idiopathic constipation Category: Medical (3) Transaminitis: Code(s): R74.01 - Elevation of levels of liver transaminase levels Category: Medical Plan Transaminitis in October and in March. Patient was encouraged to lose weight. Discussed with patient low-fat, low carb, low-salt and high-protein diet. Exercise and weight loss encouraged. Will send him for ultrasound with elastography. Patient reports epigastric pain and dyspepsia. Will send him for upper GI with barium swallow. He will follow-up in our office in 3 months. He was encouraged to call us sooner if he will have any GI concerning symptoms. Refill for Dulcolax and Nexium. Increase fluid intake and activity to promote better bowel motility. Avoid dietary triggers and late night snacking. Staying upright for minimum 3 hours after meals discussed with patient. Patient is agreeable to current plan of care and verbalizes understanding of instructions. He was given the opportunity to ask questions and all questions answered. Thank you for allowing me to participate in his care Orders: Orders FL upper GI w Ba Swallow Today K21.9 - Gastro-esophageal reflux disease without esophagitis US abdomen comp w elastography Today R79.89 - Other specified abnormal findings of blood chemistry Medications: Refilled bisacodyl (Dulcolax (bisacodyl)) 10 mg (2 x 5 mg) PO BEDTIME 180 tabs 4RF esomeprazole magnesium (Nexium) 40 mg PO DAILY 30 caps 5RF K21.9 - Gastro-esophageal reflux disease without esophagitis Coding Level of Care Code Est Pt Level 4 (33942) Complex EM visit Add On G2211 Diagnoses Heartburn R12 Chronic idiopathic constipation K59.04 Transaminitis R74.01 Time Spent (min) 40 Comment 25 minutes spent with patient and additional 15 minutes spent reviewing his records
[2025-05-20 13:24] VITALS: BP 124/68; PULSE 94; O2SAT 98; BMI 45.7
== END 2025-05-20 13:49 | disposition home or self-care (01) ==
LOC: HO.HGI 13:19
PROVIDERS: PCP Internal Medicine; Visit Provider Nurse Practitioner Family
DX: R12 Heartburn (principal); K59.04 Chronic idiopathic constipation; R74.01 Elevation of levels of liver transaminase levels
CPT/HCPCS: 99214

== ENCOUNTER → 2025-05-20 13:19 | Outpatient (BNVA) | payer OTHER, SELFPAY | PROVIDERS: PCP Internal Medicine; Visit Provider Nurse Practitioner Family | DX: K21.9 Gastro-esophageal reflux disease without esophagitis (principal); R12 Heartburn; K59.04 Chronic idiopathic constipation; R74.01 Elevation of levels of liver transaminase levels; E66.3 Overweight | CPT/HCPCS: 99212 ==

== ENCOUNTER 2025-07-14 14:01 | Outpatient (REF) | payer OTHER, SELFPAY | END 2025-07-14 14:02 | disposition home or self-care (01) | LOC: HO.LAB 14:01 | PROVIDERS: PCP Internal Medicine; Visit Provider Registered Nurse | DX: R51.9 Headache, unspecified (principal) | CPT/HCPCS: 36415; 84443 ==

== ENCOUNTER 2025-07-21 09:53 | Outpatient (REF) | payer OTHER, SELFPAY ==
--- NOTE | ~2025-07-21 | FL_ITS ---
EXAMINATION: XR UPPER GI SERIES WITH barium swallow CLINICAL INFORMATION: Gastro-esophageal reflux disease without esophagitis COMPARISON: None available. TECHNIQUE: Patient was administered thin and thick barium and effervescent granules. Barium tablet was also administered. FINDINGS: The swallowing mechanism is normal. No aspiration or penetration. Esophageal motility is normal. There is a small sliding-type hiatal hernia. No gastroesophageal reflux seen. No esophageal mucosal ulceration, mass or stricture. Barium tablet passed freely into the stomach. The stomach and proximal small bowel are normal. No fold thickening, mass, ulcer or stricture. FLUOROSCOPY TIME: 1 minute 28 seconds DOSE AREA PRODUCT: 1237 uGy-m2 (microgray-meter squared) FL/FL upper GI w air w Ba Swallow IMPRESSION: Small sliding-type hiatal hernia. Otherwise unremarkable exam. Electronically signed by: Tyesha Ontiveros MD 07/21/2025 12:52 PM EDT
== END 2025-07-21 09:54 | disposition home or self-care (01) ==
LOC: HO.XRAY 09:53
PROVIDERS: PCP Internal Medicine; Visit Provider Nurse Practitioner Family
DX: K21.9 Gastro-esophageal reflux disease without esophagitis (principal)
CPT/HCPCS: 74246

== ENCOUNTER → 2025-07-21 09:55 | Outpatient (BNV) | payer OTHER, SELFPAY | PROVIDERS: PCP Internal Medicine; Visit Provider Radiology Diagnostic Radiology | DX: K21.9 Gastro-esophageal reflux disease without esophagitis (principal); K44.0 Diaphragmatic hernia with obstruction, without gangrene | CPT/HCPCS: 74246 ==

== ENCOUNTER 2025-07-26 10:31 | Outpatient (REF) | payer OTHER, SELFPAY ==
--- NOTE | 2025-07-26 11:43 | EEG_ITS ---
Reason for Exam: Encephalopathy G93.40 Roomed Performed:?402 History: headache, depression, hypertension, insomnia, ADHD, autism - Patient reports worsening memory loss for the past 6 months. Patient also states daily headaches. Last episode: currently Last meal: today 9 AM Medication: albuterol, amitriptyline, bisacodyl, cyclobenzaprine, esomeprazole magnesium, guanfacin, mirtazapine, ondansetron, polyethylene glycol, senna, sertraline, verapamil Technical description Photic stimulation: completed Hyperventilation:?pefromed - good effort Behavioral state: cooperative State of Consciousness: awake and drowsy Skull defect: none Sedation: none Handedness: right Duration of study:?31 min 58 sec Description: This is a 16 channel EEG with an EKG lead. Patient is reported awake during the tracing. Background EEG rhythm is 12-14 hertz 5-100 microvolt posteriorly and lower amplitude fast anteriorly. Photic stimulation does not produce any significant driving. During hyperventilation, 1 generalize sharp and slow wave complex was noted. Cardiac lead does not reveal any significant abnormality. Impression: Abnormal EEG suggestive of underlying tendency for seizure disorder. Focality could not be determined from this EEG. MTDD
== END 2025-07-26 10:32 | disposition home or self-care (01) ==
LOC: HO.NEURO 10:31
PROVIDERS: PCP Internal Medicine; Visit Provider Registered Nurse
DX: G93.40 Encephalopathy, unspecified (principal)
CPT/HCPCS: 95816

== ENCOUNTER → 2025-07-26 11:43 | Outpatient (BNV) | payer OTHER, SELFPAY | PROVIDERS: PCP Internal Medicine; Visit Provider Psychiatry & Neurology Neurology | DX: G93.40 Encephalopathy, unspecified (principal) | CPT/HCPCS: 95816 ==

== ENCOUNTER 2025-07-28 08:31 | Outpatient (REF) | payer OTHER, SELFPAY ==
--- NOTE | ~2025-07-28 | US_ITS ---
EXAMINATION: US ABDOMEN COMPLETE WITH LIVER ELASTOGRAPHY HISTORY: R79.89 - Other specified abnormal findings of blood chemistry TECHNIQUE: Real-time grayscale ultrasound imaging of the abdomen was performed and images were reviewed. COMPARISON: Comparison is made with the examination dated FINDINGS: Liver: The right lobe of the liver measures 16.7 cm in size. The left lobe of the liver measures 15.6 cm in size. The liver demonstrates increased echotexture, consistent with steatosis. No focal mass or intrahepatic biliary ductal dilatation is identified. There is normal hepatopedal flow in the portal vein. Ultrasound elastography of the liver was performed with 10 separate measurements of the liver parenchyma with the patient in the supine position. Measurements were obtained approximately 2 cm below Michael's capsule and perpendicular to the capsule. The median shear wave velocity is 1.30 m/s. The interquartile range/median (IQR/median) is 0.11. Gallbladder and biliary tree: The gallbladder is unremarkable, without evidence of calculi, wall thickening, or pericholecystic fluid. There is no sonographic Lerma sign. The common bile duct is normal in caliber measuring 3 mm. Kidneys: The right kidney measures 10.2 cm in length. The left kidney measures 10.2 cm in length. The kidneys are unremarkable, without evidence of masses, hydronephrosis, or calculi. Pancreas: The pancreatic head and neck are unremarkable. The remainder of the pancreas is obscured by bowel gas. Spleen: The spleen is normal in size and contour, measuring 12.9 cm in length. Abdominal aorta and inferior vena cava: The visualized portions of the abdominal aorta and inferior vena cava are normal in caliber. There is no free fluid in the abdomen. US/US abdomen comp w elastography IMPRESSION: Hepatosplenomegaly and hepatic steatosis. The median shear wave velocity in the liver is 1.30 m/s, corresponding to a median liver stiffness of 5.13 kPa. The IQR/median value is 0.11. This is indicative of a quality data set. Findings are indicative of a low elastography value which rules out advanced chronic liver disease in asymptomatic patients. REFERENCE: Society of Radiologists in Ultrasound Liver Stiffness Thresholds (2020): LIVER STIFFNESS THRESHOLDS: *Shear wave velocity less than 1.3 m/s (Liver Stiffness equal or less than 5 kPa): High probability of being normal. *Shear wave velocity less than 1.7 m/s (Liver Stiffness less than 9 kPa): In the absence of other known clinical signs, rules out compensated advanced chronic liver disease. *Shear wave velocity between 1.7-2.1 m/s (Liver Stiffness 9-13 kPa): Suggestive of compensated advanced chronic liver disease but need further test for confirmation. *Shear wave velocity between 2.1-2.4 m/s (Liver Stiffness 13-17 kPa): Rules in compensated advanced chronic liver disease. *Shear wave velocity greater than 2.4 m/s (Liver Stiffness over 17 kPa): Suggestive of clinically significant portal hypertension. QUALITY OF DATA SET: *IQR/Median value equal or less than 0.15 implies a quality data set. *IQR/Median value over 0.15 implies a poor quality data set. SIGNIFICANT CHANGE FROM PRIOR EXAM: Significant change if liver stiffness measurement is 10% or greater from prior exam. OTHER CONSIDERATIONS: The stage of liver fibrosis may be overestimated in the setting of acute hepatitis, liver inflammation, elevated liver function tests, hepatic vascular congestion, obstructive cholestasis, non-fasting state, and infiltrative diseases such as amyloidosis and lymphoma. In some patients with NAFLD, the liver stiffness thresholds for compensated advanced chronic liver disease may be lower. In causes other than viral hepatitis and NAFLD, liver stiffness thresholds are not well established. Electronically signed by: Darin Nobles MD 07/28/2025 09:20 AM EDT
== END 2025-07-28 08:32 | disposition home or self-care (01) ==
LOC: HO.US 08:31
PROVIDERS: PCP Internal Medicine; Visit Provider Nurse Practitioner Family
DX: R79.89 Other specified abnormal findings of blood chemistry (principal)
CPT/HCPCS: 76700; 76981

== ENCOUNTER → 2025-07-28 08:33 | Outpatient (BNV) | payer OTHER, SELFPAY | PROVIDERS: PCP Internal Medicine; Visit Provider Radiology Diagnostic Radiology | DX: R16.2 Hepatomegaly with splenomegaly, not elsewhere classified (principal); K76.0 Fatty (change of) liver, not elsewhere classified | CPT/HCPCS: 76700 ==

== ENCOUNTER 2025-07-29 08:50 | Outpatient (AMB) | payer OTHER, SELFPAY ==
--- NOTE | 2025-07-29 08:51 | A.OFFVIS_ITS ---
Vital Signs 07/29/25 09:11 BP 168/97 H Position Sitting Pulse 101 H Intake Visit Reasons: sooner appt per VR Allergies [place] And Derivatives (CITRUS) Allergy (Intermediate, Verified 07/29/25 09:04) hives shellfish derived (SHELLFISH DERIVED) Allergy (Intermediate, Verified 07/29/25 09:04) HIVES SWOLLEN FACE seafood Adverse Reaction (Severe, Verified 07/29/25 09:04) Angioedema Medication List - Last Reconciled 07/29/25 by Fatou Del Castillo CNP albuterol sulfate 90 mcg/actuation 2 puffs inhalation Q6H PRN amitriptyline 50 mg PO BEDTIME 90 days bisacodyl (Dulcolax (bisacodyl)) 10 mg (2 x 5 mg) PO BEDTIME cyclobenzaprine 10 mg PO BID 30 days esomeprazole magnesium (Nexium) 40 mg PO DAILY hydroxyzine HCl 10 mg PO DAILY PRN methylphenidate HCl ER 36 mg PO QAM mirtazapine 15 mg PO BEDTIME naproxen 500 mg PO BID PRN 30 days ondansetron 4 mg PO DAILY PRN 30 days polyethylene glycol 3350 (Miralax) 17 grams PO DAILY sennosides-docusate sodium 8.6-50 mg (Senna with Docusate Sodium) 1 tab-cap PO BEDTIME sertraline 100 mg PO DAILY verapamil ER 240 mg PO DAILY 90 days HPI Comments Details: 29-year-old assigned female at who identifies as male diagnosed with autism spectrum disorder a few years ago, ADHD treated with with Concerta, depression, fibromyalgia diagnosed by rheumatology in 2022, and hypertension with daily headaches since 04/2024. There was no preceding illness, head trauma, or triggering event. CAT scans in 08/2022, 04/2023, 05/2023, and 04/2024 were all normal. He had some headaches in the past. He is not on any hormonal therapy. Family history of migraines negative. Headaches happened each day, although severity varied and some days were better than others. Pain was generally worse toward the end of the day. Pain could be all over head, but was more often toward top left back side of head. Headaches were associated with photophobia, sonophobia, dizziness, nausea, sometimes vomiting, and occasional numbness to right side of face which has been happening on and off since 04/2024. He had some ?twitching? in neck that was better with as needed cyclobenzaprine. He was here for EEG results. He was having new symptoms of memory loss, forgetting tasks or conversations, sometimes suddenly spacing out, and feeling weak and like he was going to pass out. The episodes were also associated with sensation that ears or hearing was muffled. Episodes could happen few times a day, and lasted no more than 10 minutes each time. His aunt, who he lives with, has pointed these episodes out to him. Triggers included stressful situations. No significant change in headaches. Sleep was not so good, trouble falling asleep and staying asleep. He has a paternal cousin with seizures. He was undergoing some testing for liver. [facility] Medical History (Updated 07/29/25 @ 11:29 by Fatou Del Castillo LITHOGRAPHIC PHOTOGRAPHER APPRENTICE) Transaminitis Chronic idiopathic constipation Pseudotumor cerebri White matter disease, unspecified Headache disorder Sessile serrated polyp of colon Family history of systemic lupus erythematosus Polyarthralgia Depression Essential hypertension Impaired fasting glucose Mid back pain on left side Insomnia Vitamin D deficiency Gastric ulcer Esophagitis Heartburn Lumbago with sciatica, left side Blurred vision, bilateral Obesity (BMI 30-39.9) Surgical History Hx of esophagogastroduodenoscopy Hx of colonoscopy Family History Father History of renal dialysis Chronic kidney disease (CKD) Substance use disorder Mental health disorder Mother Substance use disorder Mental health disorder Brother Mental health disorder Brother Mental health disorder Brother Mental health disorder Brother Mental health disorder Sister Mental health disorder Sister Mental health disorder Paternal Aunt Crohn's disease Social History Household Members: Family and Other Household Members Other:: Aunt Housing: Apartment Are you a primary resident care coordinator to a significant other at home: No Do you presently have visiting nurse or other home services: No Alcohol intake: never Patient Tobacco Use Status: Never used Tobacco e-Cigarette/Vaping Use: Former Use Second Hand Smoke Exposure: Yes Advance Directives Date on File: 11/21/22 service: No Current occupational status: employed Current occupation: [employer] Sexual orientation: Lesbian/Lomas/Homosexual Cognitive needs: No Hearing needs: No Vision needs: No Female Reproductive History Menstrual Age of Menarche: 13 Review of Systems Const Denies chills, Denies daytime sleepiness, Reports difficulty sleeping, Reports fatigue, Denies fever(s), Denies frequent falls, Reports headache(s), Denies increased appetite, Denies poor appetite, Denies snoring, Denies weakness, Denies weight gain and Denies weight loss Eyes Denies loss of vision ENT Denies vertigo, Reports dizziness, Reports headache(s) and Reports neck pain Card Denies chest pain at rest, Denies chest pain with activity, Denies syncope, Denies leg edema, Denies palpitations, Denies dyspnea and Denies dyspnea on exertion Resp Denies cough, Denies dyspnea, Denies dyspnea on exertion and Denies snoring GI Denies abdominal pain, Denies constipation, Denies heartburn, Denies diarrhea and Denies nausea Denies urinary frequency, Denies urinary incontinence and Denies urinary urgency Musc Denies abnormal gait, Denies back pain, Reports myalgias, Denies arthralgias, Reports neck pain, Reports numbness and Reports tingling Neuro Denies abnormal gait, Denies vertigo, Reports dizziness, Denies syncope, Denies frequent falls, Reports headache(s), Denies lack of coordination, Denies loss of vision, Reports memory loss, Reports numbness, Denies Other visual disturbances, Denies restless legs, Denies seizure-like activity, Reports tingling, Denies paresthesias, Denies tremor(s) and Denies weakness Psych Reports anxiety, Reports depression, Denies auditory hallucinations, Reports memory loss and Denies visual hallucinations Endo Reports fatigue and Denies palpitations Physical Exam Vital Signs: Last Vital Signs Pulse 101 H 07/29/25 09:11 BP 168/97 H 07/29/25 09:11 Const Other: General Appearance:? normal, in no acute distress. Heart:? S1, S2 normal, no murmurs. Lungs:? clear anteriorly and posteriorly. Musculoskeletal:? normal. Extremities:? no edema. Psych:? alert, oriented, cognitive function intact, cooperative with exam. Neuro Other: Abnormal Neurological Findings:?Sensitive to light. Mental Status: alert and oriented X 3. Normal attention, orientation, memory, and affect. Cranial Nerves: Pupils are equal, round, and reactive to light. External ocular muscles are intact. Visual tyson are full, no ptosis. Face is symmetrical, no facial weakness or droop. Facial sensations are normal. Tongue protrudes in midline. Palate elevates symmetrically. Shoulder shrugging is normal Motor Examination: Normal muscle tone, bulk and strength. No atrophy or f asciculations. No drift of the extended upper extremities. DTR 2+. Plantars are flexor. Sensory Exam: Normal light touch, temperature, pinprick, vibration, and joint-position sensations. Rhomberg sign is absent. Coordination: No ataxia. No titubation. Gait Exam: Within normal limits. Cerebellar Signs: [id number] is okay. Extrapyramidal System: No tremor, rigidity with normal facial expressions. No bradykinesia. No bradyphrenia. Normal arm swing and posture. No propulsion or retropulsion. Speech: Normal. Results Reviewed Results Reviewed: [place] [address] Electroencephalogram Report Signed Patient: Lani Kumar MR#: [id number] : 1995 Acct:[id number] Age/Sex: 29 / F ADM Date: 07/26/25 Loc: HO.NEURO Attending Dr: Fatou Del Castillo CNP Ordering Physician: Fatou Del Castillo CNP Date of Service: 07/26/25 Procedure(s): EEG Routine Accession Number(s): [id number] cc: Gauri Samano MD~ Reason for Exam: G93.40 - Encephalopathy, unspecified Reason for Exam: Encephalopathy G93.40 Roomed Performed:?402 History: headache, depression, hypertension, insomnia, ADHD, autism - Patient reports worsening memory loss for the past 6 months. Patient also states daily headaches. Last episode: currently Last meal: today 9 AM Medication: albuterol, amitriptyline, bisacodyl, cyclobenzaprine, esomeprazole magnesium, guanfacin, mirtazapine, ondansetron, polyethylene glycol, senna, sertraline, verapamil Technical description Photic stimulation: completed Hyperventilation:?pefromed - good effort Behavioral state: cooperative State of Consciousness: awake and drowsy Skull defect: none Sedation: none Handedness: right Duration of study:?31 min 58 sec Description: This is a 16 channel EEG with an EKG lead. Patient is reported awake during the tracing. Background EEG rhythm is 12-14 hertz 5-100 microvolt posteriorly and lower amplitude fast anteriorly. Photic stimulation does not produce any significant driving. During hyperventilation, 1 generalize sharp and slow wave complex was noted. Cardiac lead does not reveal any significant abnormality. Impression: Abnormal EEG suggestive of underlying tendency for seizure disorder. Focality could not be determined from this EEG. Dictated By: Laurita Borja MD Signed By: <Electronically signed by Laurita Borja MD> 07/26/25 1437 Laboratory Tests 03/31/25 14:20 Total Bilirubin 0.2 Direct Bilirubin < 0.2 AST 35 H ALT 34 H Alkaline Phosphatase 89 Laboratory Tests 03/02/25 03/30/25 04/04/25 14:14 15:39 14:25 ESR 16 C-Reactive Protein 0.92 H IgG Total 1049 IgA Total 317 H IgM 125 ALVARADO Interpretation SEE NOTE KERI Screen POSITIVE A KERI Titer 1:160 H KERI Titer 2 TNP KERI Titer 3 TNP KERI Pattern Nuclear, Speckled A KERI Pattern 2 TNP KERI Pattern 3 TNP Double Strand DNA Ab <1 Lyme Screen IgG & IgM <0.90 Lyme Progressive Test TNP LP at [facility] in 11/2024 OP 13cm Labs 02/2025 CRP 0.92, ESR 16, glucose 154, lyme negative MRI brain at [facility] in 03/2025: Tiny nonspecific T2 hyperintensities in the right centrum semiovale Assessment & Plan Assessment & Plan (1) Complex partial seizure: Code(s): G40.209 - Localization-related (focal) (partial) symptomatic epilepsy and epileptic syndromes with complex partial seizures, not intractable, without status epilepticus Category: Medical Qualifiers: Epilepsy type: partial symptomatic Intractability: not intractable Status epilepticus: without status epilepticus Qualified Code(s): G40.209 - Localization-related (focal) (partial) symptomatic epilepsy and epileptic syndromes with complex partial seizures, not intractable, without status epilepticus Plan: EEG results reviewed, abnormal suggestive of underlying tendency for seizure disorder. Given description of these episodes, and their frequency, with EEG suggestive of underlying tendency for seizure disorder, recommend starting treatment with anti-epileptic. While Depakote was considered for its use in both the treatment of seizures and migraines, will hold off as LFTs elevated and he was undergoing further work up for this. Start levetiracetam 500mg 1 tablet twice a day, use/side effects reviewed. If there is no improvement in symptoms, may consider ambulatory EEG in the future (24-48hr). Follow up in 4 weeks or sooner as needed. (2) Chronic daily headache: Code(s): R51.9 - Headache, unspecified Category: Medical Plan: Continue verapamil ER 240mg 1 capsule daily. Continue cyclobenzaprine 10mg 1 tablet twice a day as needed for muscle spasms Continue amitriptyline 50mg 1 tablet at bedtime. Continue ondansetron 4mg 1 tablet as needed for nausea/vomiting. Continue naproxen 500mg 1 tablet q12h as needed for headaches. (3) Hypertension: Onset Date: Unknown Code(s): I10 - Essential (primary) hypertension Category: Medical Qualifiers: Hypertension type: unspecified Qualified Code(s): I10 - Essential (primary) hypertension Plan: BP was again elevated, which may be contributing to headaches. He was prescribed verapamil ER 240mg for headaches, which may help some with blood pressure. He was seen by cardiology in 05/12/2025 for hypertension, follow up as recommended. Plan Meds tried: topiramate, amitriptyline, propranolol, verapamil, cyclobenzaprine, naproxen Medications: New levetiracetam 500 mg PO BID 180 tabs 0RF 90 days Coding Level of Care Code Est Pt Level 4 (02739) Diagnoses Partial symptomatic epilepsy with complex partial seizures, not intractable, without status epilepticus G40.209 Epilepsy type: partial symptomatic Intractability: not intractable Status epilepticus: without status epilepticus Chronic daily headache R51.9 Hypertension, unspecified type I10 Hypertension type: unspecified
[2025-07-29 09:11] VITALS: BP 168/97; PULSE 101
== END 2025-07-29 10:13 | disposition home or self-care (01) ==
LOC: HO.HSM 08:50
PROVIDERS: PCP Internal Medicine; Visit Provider Registered Nurse
DX: G40.209 Localization-related (focal) (partial) symptomatic epilepsy and epileptic syndromes with complex partial seizures, not intractable, without status epilepticus (principal); R51.9 Headache, unspecified; I10 Essential (primary) hypertension
CPT/HCPCS: 99214

== ENCOUNTER → 2025-07-29 08:50 | Outpatient (BNVA) | payer OTHER, SELFPAY | PROVIDERS: PCP Internal Medicine; Visit Provider Registered Nurse | DX: G40.209 Localization-related (focal) (partial) symptomatic epilepsy and epileptic syndromes with complex partial seizures, not intractable, without status epilepticus (principal); R51.9 Headache, unspecified; I10 Essential (primary) hypertension; Z79.899 Other long term (current) drug therapy; Z79.1 Long term (current) use of non-steroidal anti-inflammatories (NSAID); Z77.22 Contact with and (suspected) exposure to environmental tobacco smoke (acute) (chronic) | CPT/HCPCS: 99212 ==

== ENCOUNTER 2025-08-26 11:43 | Outpatient (AMB) | payer OTHER, SELFPAY ==
--- NOTE | 2025-08-26 11:51 | MHC.OFFVIS ---
Vital Signs 08/26/25 11:54 Height 5 ft 3 in Weight 246 lb BMI 43.6 BP 140/78 H Blood Pressure Location Rt brachial Position Sitting Pulse 102 H Pulse Source Pulse Oximeter Pulse Oximetry (%) 96 Oxygen Delivery Method Room Air Intake Visit Reasons: 3m Intake Note: Est pt for mgmt of GERD + CIC. CC; C.O. intermittent fatigue, malaise, and nausea w/o vomiting. Pt denies any additional sx or concerns at this time. Confirms they are taking currently Rx'd therapies w/o complication. Seat Scooper Machine Required: No Accompanied by: Self / Same As Patient Allergies [place] And Derivatives (CITRUS) Allergy (Intermediate, Verified 07/29/25 09:04) hives shellfish derived (SHELLFISH DERIVED) Allergy (Intermediate, Verified 07/29/25 09:04) HIVES SWOLLEN FACE seafood Adverse Reaction (Severe, Verified 07/29/25 09:04) Angioedema HPI HPI 3m: Details: LAST VISIT: Heartburn Chronic idiopathic constipation Transaminitis Plan Transaminitis in October and in March. Patient was encouraged to lose weight. Discussed with patient low-fat, low carb, low-salt and high-protein diet. Exercise and weight loss encouraged. Will send him for ultrasound with elastography. Patient reports epigastric pain and dyspepsia. Will send him for upper GI with barium swallow. He will follow-up in our office in 3 months. He was encouraged to call us sooner if he will have any GI concerning symptoms. Refill for Dulcolax and Nexium. Increase fluid intake and activity to promote better bowel motility. Avoid dietary triggers and late night snacking. Staying upright for minimum 3 hours after meals discussed with patient. Patient is agreeable to current plan of care and verbalizes understanding of instructions. He was given the opportunity to ask questions and all questions answered. ? Thank you for allowing me to participate in his care Orders FL upper GI w Ba Swallow Today K21.9 US abdomen comp w elastography Today R79.89 Refilled bisacodyl (Dulcolax (bisacodyl)) 10 mg (2 x 5 mg) PO BEDTIME 180 tabs 4RF esomeprazole magnesium (Nexium) 40 mg PO DAILY 30 caps 5RF K21.9 TODAY'S VISIT: Patient is here today for follow-up. Patient reports that he has been feeling tired lately. He has occasional nausea depending on what he eats. He still is taking Nexium in the morning. Symptoms of acid reflux are suppressed for the most time, however depending on what he eats he might have epigastric pain and nausea. Tries not to eat late at night. Patient last few lb since last seen. He has been taking Dulcolax to help with bowel movements. Patient reports that he is drinking some water. Currently is not on any hormone replacement therapy. Continues to follow-up with Cardiology, has appointment next month. Patient is trying to follow healthier diet, however not always taking to that. [facility] Medical History Transaminitis Chronic idiopathic constipation Pseudotumor cerebri White matter disease, unspecified Headache disorder Sessile serrated polyp of colon Family history of systemic lupus erythematosus Polyarthralgia Depression Essential hypertension Impaired fasting glucose Mid back pain on left side Insomnia Vitamin D deficiency Gastric ulcer Esophagitis Heartburn Lumbago with sciatica, left side Blurred vision, bilateral Obesity (BMI 30-39.9) Surgical History Hx of esophagogastroduodenoscopy Hx of colonoscopy Family History Father History of renal dialysis Chronic kidney disease (CKD) Substance use disorder Mental health disorder Mother Substance use disorder Mental health disorder Brother Mental health disorder Brother Mental health disorder Brother Mental health disorder Brother Mental health disorder Sister Mental health disorder Sister Mental health disorder Paternal Aunt Crohn's disease Social History Household Members: Family and Other Household Members Other:: Aunt Housing: Apartment Are you a primary child care attendant to a significant other at home: No Do you presently have visiting nurse or other home services: No Alcohol intake: never Patient Tobacco Use Status: Never used Tobacco e-Cigarette/Vaping Use: Former Use Second Hand Smoke Exposure: Yes Advance Directives Date on File: 08/26/22 service: No Current occupational status: employed 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 No aspiration or penetration. Esophageal motility is normal. There is a small sliding-type hiatal hernia. No gastroesophageal reflux seen. No esophageal mucosal ulceration, mass or stricture. Barium tablet passed freely into the stomach. The stomach and proximal small bowel are normal. No fold thickening, mass, ulcer or stricture. FLUOROSCOPY TIME: 1 minute 28 seconds DOSE AREA PRODUCT: 1237 uGy-m2 (microgray-meter squared) FL/FL upper GI w air w Ba Swallow IMPRESSION: Small sliding-type hiatal hernia. Otherwise unremarkable exam. LIVER ELASTOGRAPHY FINDINGS: Liver: The right lobe of the liver measures 16.7 cm in size. The left lobe of the liver measures 15.6 cm in size. The liver demonstrates increased echotexture, consistent with steatosis. No focal mass or intrahepatic biliary ductal dilatation is identified. There is normal hepatopedal flow in the portal vein. Ultrasound elastography of the liver was performed with 10 separate measurements of the liver parenchyma with the patient in the supine position. Measurements were obtained approximately 2 cm below Michael's capsule and perpendicular to the capsule. The median shear wave velocity is 1.30 m/s. The interquartile range/median (IQR/median) is 0.11. Gallbladder and biliary tree: The gallbladder is unremarkable, without evidence of calculi, wall thickening, or pericholecystic fluid. There is no sonographic Lerma sign. The common bile duct is normal in caliber measuring 3 mm. Kidneys: The right kidney measures 10.2 cm in length. The left kidney measures 10.2 cm in length. The kidneys are unremarkable, without evidence of masses, hydronephrosis, or calculi. Pancreas: The pancreatic head and neck are unremarkable. The remainder of the pancreas is obscured by bowel gas. Spleen: The spleen is normal in size and contour, measuring 12.9 cm in length. Abdominal aorta and inferior vena cava: The visualized portions of the abdominal aorta and inferior vena cava are normal in caliber. There is no free fluid in the abdomen. US/US abdomen comp w elastography IMPRESSION: Hepatosplenomegaly and hepatic steatosis. The median shear wave velocity in the liver is 1.30 m/s, corresponding to a median liver stiffness of 5.13 kPa. The IQR/median value is 0.11. This is indicative of a quality data set. Findings are indicative of a low elastography value which rules out advanced chronic liver disease in asymptomatic patients. Assessment & Plan Assessment & Plan (1) Heartburn: Code(s): R12 - Heartburn Category: Medical (2) Transaminitis: Code(s): R74.01 - Elevation of levels of liver transaminase levels Category: Medical (3) Chronic idiopathic constipation: Code(s): K59.04 - Chronic idiopathic constipation Category: Medical Plan Patient will continue taking Nexium in the morning. Avoid dietary triggers and late night snacking. Staying upright for minimum 3 hours after meals discussed with patient. Patient will continue taking Dulcolax. Increase fluid intake and activity to promote better bowel motility. Both upper GI series with barium swallow and liver elastography discussed with patient. Patient was encouraged to continue weight loss. Follow low fat, low carb, low salt and high protein diet. Patient will follow-up in 6 months. He will call us if he will have any GI concerning symptoms. Patient is agreeable to current plan of care and verbalizes understanding of instructions. He was given the opportunity to ask questions and all questions answered. Thank you for allowing me to participate in his care Medications: Refilled esomeprazole magnesium (Nexium) 40 mg PO DAILY 90 caps 3RF K21.9 - Gastro-esophageal reflux disease without esophagitis Discontinued sennosides-docusate sodium 8.6-50 mg (Senna with Docusate Sodium) Discontinued Reason: Patient no longer taking 1 tab-cap PO BEDTIME 14 tabs 0RF Coding Level of Care Code Est Pt Level 4 (79836) Complex visit Add On G2211 Diagnoses Heartburn R12 Transaminitis R74.01 Chronic idiopathic constipation K59.04 Time Spent (min) 40 Comment 25 minutes spent with patient and additional 10 minutes spent reviewing records
[2025-08-26 11:54] VITALS: BP 140/78; PULSE 102; O2SAT 96; BMI 43.6
== END 2025-08-26 12:12 | disposition home or self-care (01) ==
LOC: HO.HGI 11:43
PROVIDERS: PCP Internal Medicine; Visit Provider Nurse Practitioner Family
DX: R12 Heartburn (principal); R74.01 Elevation of levels of liver transaminase levels; K59.04 Chronic idiopathic constipation
CPT/HCPCS: 99214

== ENCOUNTER → 2025-08-26 11:43 | Outpatient (BNVA) | payer OTHER, SELFPAY | PROVIDERS: PCP Internal Medicine; Visit Provider Nurse Practitioner Family | DX: K59.04 Chronic idiopathic constipation (principal); R74.01 Elevation of levels of liver transaminase levels; R12 Heartburn | CPT/HCPCS: 99212 ==

== ENCOUNTER 2025-08-31 11:17 | Outpatient (AMB) | payer OTHER, SELFPAY ==
--- NOTE | 2025-08-31 11:21 | MHC.OFFVIS ---
Vital Signs 08/31/25 11:31 08/31/25 11:34 BP 159/92 H 157/98 H Position Sitting Standing Pulse 96 126 H Intake Visit Reasons: 3 m GASCA Allergies Gaston And Derivatives (CITRUS) Allergy (Intermediate, Verified 08/31/25 11:24) hives shellfish derived (SHELLFISH DERIVED) Allergy (Intermediate, Verified 08/31/25 11:24) HIVES SWOLLEN FACE seafood Adverse Reaction (Severe, Verified 08/31/25 11:24) Angioedema Medication List - Last Reconciled 08/31/25 by Fatou Del Castillo CNP albuterol sulfate 90 mcg/actuation 2 puffs inhalation Q6H PRN amitriptyline 50 mg PO BEDTIME 90 days bisacodyl (Dulcolax (bisacodyl)) 10 mg (2 x 5 mg) PO BEDTIME cyclobenzaprine 10 mg PO BID 30 days esomeprazole magnesium (Nexium) 40 mg PO DAILY hydroxyzine HCl 10 mg PO DAILY PRN levetiracetam 500 mg PO BID 90 days methylphenidate HCl ER 36 mg PO QAM mirtazapine 15 mg PO BEDTIME naproxen 500 mg PO BID PRN 30 days ondansetron 4 mg PO DAILY PRN 30 days polyethylene glycol 3350 (Miralax) 17 grams PO DAILY sertraline 100 mg PO DAILY verapamil ER 240 mg PO DAILY 90 days HPI Comments Details: 29-year-old assigned female at who identifies as male diagnosed with autism spectrum disorder a few years ago, ADHD treated with with Concerta, depression, fibromyalgia diagnosed by rheumatology in 2022, and hypertension with daily headaches since 04/2024. There was no preceding illness, head trauma, or triggering event. CAT scans in 08/2022, 04/2023, 05/2023, and 04/2024 were all normal. He had some headaches in the past. He is not on any hormonal therapy. Family history of migraines negative. Headaches happened each day, although severity varied and some days were better than others. Pain was generally worse toward the end of the day. Pain could be all over head, but was more often toward top left back side of head. Headaches were associated with photophobia, sonophobia, dizziness, nausea, sometimes vomiting, and occasional numbness to right side of face which has been happening on and off since 04/2024. He had some ?twitching? in neck that was better with as needed cyclobenzaprine. In 07/2025, he reported new symptoms of memory loss, forgetting tasks or conversations, sometimes suddenly spacing out, and feeling weak and like he was going to pass out. The episodes were also associated with sensation that hearing was muffled. Episodes could happen few times a day, and lasted no more than 10 minutes each time. His aunt, who he lives with, has pointed these episodes out to him. Triggers included stressful situations. Sleep was not so good, trouble falling asleep and staying asleep. He has a paternal cousin with seizures. He was undergoing some testing for liver. He was having some good days and bad days. He was taking levetiracetam twice a day, but reported that episodes of spacing out seemed to be happening more since starting medication. The episodes were associated with feeling of weakness and like he was going to pass out, and sensation that hearing was muffled. He felt more tired afterward. He was unsure how often the episodes were occuring, but were happening at least once a day and lasted less than 15 minutes. No significant change in headaches. He had some headache everyday, but had periods throughout the day where he was headache free. Sleep was still not so good, having trouble falling asleep and staying asleep. He was working with therapist and psychiatrist. He reported taking verapamil daily and took medication prior to appointment. He has appointment with cardiology next month and has been keeping a log of home BPs. [facility] Medical History Transaminitis Chronic idiopathic constipation Pseudotumor cerebri White matter disease, unspecified Headache disorder Sessile serrated polyp of colon Family history of systemic lupus erythematosus Polyarthralgia Depression Essential hypertension Impaired fasting glucose Mid back pain on left side Insomnia Vitamin D deficiency Gastric ulcer Esophagitis Heartburn Lumbago with sciatica, left side Blurred vision, bilateral Obesity (BMI 30-39.9) Surgical History Hx of esophagogastroduodenoscopy Hx of colonoscopy Family History Father History of renal dialysis Chronic kidney disease (CKD) Substance use disorder Mental health disorder Mother Substance use disorder Mental health disorder Brother Mental health disorder Brother Mental health disorder Brother Mental health disorder Brother Mental health disorder Sister Mental health disorder Sister Mental health disorder Paternal Aunt Crohn's disease Social History Household Members: Family and Other Household Members Other:: Aunt Housing: Apartment Are you a primary hospice home care coordinator to a significant other at home: No Do you presently have visiting nurse or other home services: No Alcohol intake: never Patient Tobacco Use Status: Never used Tobacco e-Cigarette/Vaping Use: Former Use Second Hand Smoke Exposure: Yes Advance Directives Date on File: 08/26/22 service: No Current occupational status: employed Current occupation: [employer] Sexual orientation: Lesbian/Lomas/Homosexual Cognitive needs: No Hearing needs: No Vision needs: No Female Reproductive History Menstrual Age of Menarche: 13 Review of Systems Const Denies chills, Denies daytime sleepiness, Reports difficulty sleeping, Reports fatigue, Denies fever(s), Denies frequent falls, Reports headache(s), Denies increased appetite, Denies poor appetite, Denies snoring, Denies weakness, Denies weight gain and Denies weight loss Eyes Denies loss of vision ENT Denies vertigo, Reports dizziness, Reports headache(s) and Reports neck pain Card Denies chest pain at rest, Denies chest pain with activity, Denies syncope, Denies leg edema, Denies palpitations, Denies dyspnea and Denies dyspnea on exertion Resp Denies cough, Denies dyspnea, Denies dyspnea on exertion and Denies snoring GI Denies abdominal pain, Denies constipation, Denies heartburn, Denies diarrhea and Denies nausea Denies urinary frequency, Denies urinary incontinence and Denies urinary urgency Musc Denies abnormal gait, Denies back pain, Reports myalgias, Denies arthralgias, Reports neck pain, Reports numbness and Reports tingling Neuro Denies abnormal gait, Denies vertigo, Reports dizziness, Denies syncope, Denies frequent falls, Reports headache(s), Denies lack of coordination, Denies loss of vision, Reports memory loss, Reports numbness, Denies Other visual disturbances, Denies restless legs, Denies seizure-like activity, Reports tingling, Denies paresthesias, Denies tremor(s) and Denies weakness Psych Reports anxiety, Reports depression, Denies auditory hallucinations, Reports memory loss and Denies visual hallucinations Endo Reports fatigue and Denies palpitations Physical Exam Vital Signs: Last Vital Signs Pulse 126 H 08/31/25 11:34 BP 157/98 H 08/31/25 11:34 Const Other: General Appearance:? normal, in no acute distress. Heart:? S1, S2 normal, no murmurs. Lungs:? clear anteriorly and posteriorly. Musculoskeletal:? normal. Extremities:? no edema. Psych:? alert, oriented, cognitive function intact, cooperative with exam. Neuro Other: Abnormal Neurological Findings:?Sensitive to light. Mental Status: alert and oriented X 3. Normal attention, orientation, memory, and affect. Cranial Nerves: Pupils are equal, round, and reactive to light. External ocular muscles are intact. Visual tyson are full, no ptosis. Face is symmetrical, no facial weakness or droop. Facial sensations are normal. Tongue protrudes in midline. Palate elevates symmetrically. Shoulder shrugging is normal Motor Examination: Normal muscle tone, bulk and strength. No atrophy or fasciculations. No drift of the extended upper extremities. DTR 2+. Plantars are flexor. Sensory Exam: Normal light touch, temperature, pinprick, vibration, and joint-position sensations. Rhomberg sign is absent. Coordination: No ataxia. No titubation. Gait Exam: Within normal limits. Cerebellar Signs: Gulieb-dn-[id number] is okay. Extrapyramidal System: No tremor, rigidity with normal facial expressions. No bradykinesia. No bradyphrenia. Normal arm swing and posture. No propulsion or retropulsion. Speech: Normal. Results Reviewed Results Reviewed: [address] [address] Electroencephalogram Report Signed Patient: Lani Kumar MR#: [id number] : 1995 Acct:[id number] Age/Sex: 29 / F ADM Date: 07/26/25 Loc: HO.NEURO Attending Dr: Fatou Del Castillo CNP Ordering Physician: Fatou Del Castillo CNP Date of Service: 07/26/25 Procedure(s): EEG Routine Accession Number(s): [id number] cc: Gauri Samano MD~ Reason for Exam: G93.40 - Encephalopathy, unspecified Reason for Exam: Encephalopathy G93.40 Roomed Performed:?402 History: headache, depression, hypertension, insomnia, ADHD, autism - Patient reports worsening memory loss for the past 6 months. Patient also states daily headaches. Last episode: currently Last meal: today 9 AM Medication: albuterol, amitriptyline, bisacodyl, cyclobenzaprine, esomeprazole magnesium, guanfacin, mirtazapine, ondansetron, polyethylene glycol, senna, sertraline, verapamil Technical description Photic stimulation: completed Hyperventilation:?pefromed - good effort Behavioral state: cooperative State of Consciousness: awake and drowsy Skull defect: none Sedation: none Handedness: right Duration of study:?31 min 58 sec Description: This is a 16 channel EEG with an EKG lead. Patient is reported awake during the tracing. Background EEG rhythm is 12-14 hertz 5-100 microvolt posteriorly and lower amplitude fast anteriorly. Photic stimulation does not produce any significant driving. During hyperventilation, 1 generalize sharp and slow wave complex was noted. Cardiac lead does not reveal any significant abnormality. Impression: Abnormal EEG suggestive of underlying tendency for seizure disorder. Focality could not be determined from this EEG. Dictated By: Laurita Borja MD Signed By: <Electronically signed by Laurita Borja MD> 07/26/25 1437 Laboratory Tests 03/31/25 14:20 Total Bilirubin 0.2 Direct Bilirubin < 0.2 AST 35 H ALT 34 H Alkaline Phosphatase 89 Laboratory Tests 03/02/25 03/30/25 04/04/25 14:14 15:39 14:25 ESR 16 C-Reactive Protein 0.92 H IgG Total 1049 IgA Total 317 H IgM 125 ALVARADO Interpretation SEE NOTE KERI Screen POSITIVE A KERI Titer 1:160 H KERI Titer 2 TNP KERI Titer 3 TNP KERI Pattern Nuclear, Speckled A KERI Pattern 2 TNP KERI Pattern 3 TNP Double Strand DNA Ab <1 Lyme Screen IgG & IgM <0.90 Lyme Progressive Test TNP [place] [facility] [place] 13[place] Labs 02/2025 CRP 0.92, ESR 16, glucose 154, lyme negative MRI brain [place] [facility] [place]: Tiny nonspecific T2 hyperintensities in the right centrum semiovale Assessment & Plan Assessment & Plan (1) Complex partial seizure: Code(s): G40.209 - Localization-related (focal) (partial) symptomatic epilepsy and epileptic syndromes with complex partial seizures, not intractable, without status epilepticus Category: Medical Plan: He was taking levetiracetam 500mg 1 tablet twice a day, but felt episodes of spacing out where happening more since starting medication and medication was discontinued. Start lamotrigine 25mg 1 tablet at bedtime x1 week then 1 tablet twice a day, use/side effects reviewed. 48hr ambulatory EEG ordered. (Depakote was considered for its use in both the treatment of seizures and migraines but was decided against due to elevated LFTs, following with GI.) Follow up after testing or sooner as needed. (2) Chronic daily headache: Code(s): R51.9 - Headache, unspecified Category: Medical Plan: He has tried and failed multiple medications including topiramate, amitriptyline, propranolol, verapamil, and cyclobenzaprine. Start Emgality 120mg/mL subcutaneous monthly, use/side effects reviewed. Continue verapamil ER 240mg 1 capsule daily. Continue cyclobenzaprine 10mg 1 tablet twice a day as needed for muscle spasms Continue amitriptyline 50mg 1 tablet at bedtime. Continue ondansetron 4mg 1 tablet as needed for nausea/vomiting. Continue naproxen 500mg 1 tablet q12h as needed for headaches. (3) Hypertension: Onset Date: Unknown Code(s): I10 - Essential (primary) hypertension Category: Medical Qualifiers: Hypertension type: unspecified Qualified Code(s): I10 - Essential (primary) hypertension Plan: BP was again elevated, which may be contributing to headaches. He was prescribed verapamil ER 240mg for headaches, which may help some with blood pressure. He was seen by cardiology in 05/12/2025 for hypertension, and has follow up scheduled for next month. Plan Meds tried: topiramate, amitriptyline, propranolol, verapamil, cyclobenzaprine, naproxen Orders: Orders EEG 48hr Ambulatory Today G40.209 - Localization-related (focal) (partial) symptomatic epilepsy and epileptic syndromes with complex partial seizures, not intractable, without status epilepticus Medications: New galcanezumab-gnlm (Emgality Pen) 120 mg subcut QMONTH 1 mL 5RF 30 days lamotrigine 25 mg orally 1 tablet at bedtime x1 week then 1 tablet twice a day; 90 tabs 0RF 90 days galcanezumab-gnlm (Emgality Pen) loading dose 120 mg subcut QMONTH 2 mL 0RF 30 days Discontinued levetiracetam Discontinued Reason: Doctor's Order 500 mg PO BID 90 days 180 tabs 0RF Coding Level of Care Code Est Pt Level 4 (54340) Diagnoses Complex partial seizure G40.209 Chronic daily headache R51.9 Hypertension, unspecified type I10 Hypertension type: unspecified
[2025-08-31 11:31] VITALS: BP 159/92; PULSE 96
[2025-08-31 11:34] VITALS: BP 157/98; PULSE 126
== END 2025-08-31 11:48 | disposition home or self-care (01) ==
LOC: HO.HSM 11:18
PROVIDERS: PCP Internal Medicine; Visit Provider Registered Nurse
DX: G40.209 Localization-related (focal) (partial) symptomatic epilepsy and epileptic syndromes with complex partial seizures, not intractable, without status epilepticus (principal); R51.9 Headache, unspecified; I10 Essential (primary) hypertension
CPT/HCPCS: 99214

== ENCOUNTER → 2025-08-31 11:17 | Outpatient (BNVA) | payer OTHER, SELFPAY | PROVIDERS: PCP Internal Medicine; Visit Provider Registered Nurse | DX: R51.9 Headache, unspecified (principal); G40.209 Localization-related (focal) (partial) symptomatic epilepsy and epileptic syndromes with complex partial seizures, not intractable, without status epilepticus; I10 Essential (primary) hypertension; Z79.899 Other long term (current) drug therapy; Z79.1 Long term (current) use of non-steroidal anti-inflammatories (NSAID); Z77.22 Contact with and (suspected) exposure to environmental tobacco smoke (acute) (chronic) | CPT/HCPCS: 99212 ==

== ENCOUNTER 2025-09-15 10:48 | Emergency (ER) | payer OTHER, SELFPAY ==
--- NOTE | ~2025-09-15 | XR_ITS ---
EXAMINATION: XR CHEST 2 VIEWS HISTORY: CP COMPARISON: Comparison is made with the prior examination dated 04/20/2024. FINDINGS: PA and lateral views of the chest are submitted. The lungs are expanded and clear. There is no pleural effusion, pneumothorax, or pulmonary vascular congestion. The heart is normal in size. The bones are intact. XR/XR chest 2V IMPRESSION: No acute cardiopulmonary abnormality. Electronically signed by: Darin Nobles MD 09/15/2025 11:50 AM BETSY
--- NOTE | 2025-09-15 10:51 | ECG_ITS ---
Test Reason : cp Blood Pressure : */* mmHG Vent. Rate : 86 BPM Atrial Rate : 86 BPM P-R Int : 142 ms QRS Dur : 88 ms QT Int : 378 ms P-R-T Axes : 28 12 29 degrees QTcB Int : 452 ms Normal sinus rhythm T wave abnormality, consider lateral ischemia Abnormal ECG When compared with ECG of 18-Dec-2023 13:39, No significant change was found Referred By: Generic ED Physician Electronically Signed By: YI PARSONS MD
[2025-09-15 11:19] VITALS: BP 162/107; PULSE 92; RESP 16; TEMP 36.6; O2SAT 100; BMI 42.5
--- NOTE | 2025-09-15 11:20 | ED_ITS ---
HPI - Chest Pain General Chief Complaint: Chest Pain Stated Complaint: chest pain Time Seen by Provider: 09/15/25 13:04 Source: patient Mode of arrival: ambulatory Limitations: no limitations History of Present Illness ED Provider: Lara Murillo PA-C HPI narrative: Patient is a 29 year old assigned female at , now male, with a history of HTN, fibromyalgia, depression, and transaminitis presenting to the emergency department today with left sided chest pressure. Patient states that he has been having left sided chest pain that feels as though it is pressure. Patient states it is worse with breathing and certain movements. Patient denies any recent travel, any contraception use, or any hormone use. Patient denies any other complaints at this time. Related Data On Oral Contraceptives: No Home Medications ?Medication ?Instructions ?Recorded ?Confirmed mirtazapine 15 mg tablet 15 mg PO BEDTIME 10/22/22 sertraline 100 mg tablet 100 mg PO DAILY 03/19/23 hydroxyzine HCl 10 mg tablet 10 mg PO DAILY PRN 08/31/25 methylphenidate HCl 36 mg 36 mg PO QAM 07/29/25 tablet,extended release 24 hr Previous Rx's ?Medication ?Instructions ?Recorded albuterol sulfate 90 mcg/actuation 2 puff inhalation Q 6H PRN 08/04/23 aerosol inhaler shortness of breath or wheez ing #6.7 grams polyethylene glycol 3350 17 gram 17 g PO DAILY #14 ea 03/31/25 oral powder packet (Miralax) amitriptyline 50 mg tablet 50 mg PO BEDTIME 90 days #9 0 tabs 05/03/25 cyclobenzaprine 10 mg tablet 10 mg PO BID 30 days #60 tabs 05/03/25 naproxen 500 mg tablet 500 mg PO BID PRN pain 30 da ys #30 05/03/25 tabs ondansetron 4 mg disintegrating 4 mg PO DAILY PRN naus ea and 05/03/25 tablet vomiting 30 days #14 tabs verapamil 240 mg 24 hr 240 mg PO DAILY 90 days #90 caps 05/03/25 capsule,extended release bisacodyl 5 mg tablet,delayed 10 mg (2 x 5 mg) PO BEDT ELMER #180 05/20/25 release (Dulcolax (bisacodyl)) tabs esomeprazole magnesium 40 mg 40 mg PO DAILY #90 caps 1 10/26/24 capsule,delayed release (Nexium) galcanezumab-gnlm 120 mg/mL 120 mg subcut QMONTH 30 da ys #1 mL 08/31/25 subcutaneous pen injector (Emgality Pen) galcanezumab-gnlm 120 mg/mL 120 mg subcut QMONTH 30 da ys #2 mL 08/31/25 subcutaneous pen injector (Emgality Pen) lamotrigine 25 mg tablet 25 mg PO .COMPLEX 90 days #9 0 tabs 08/31/25 gabapentin 300 mg capsule 300 mg PO BEDTIME 30 days #3 0 caps 09/12/25 Allergies Allergy/AdvReac Type Severity Reaction Status Date / Time [place] And Derivatives Allergy Intermediate hives Verified 09/15/25 11:21 (CITRUS) shellfish derived (SHELLFISH Allergy Intermediate HIVES Verified 09/15/25 11:21 DERIVED) SWOLLEN FACE seafood AdvReac Severe Angioedema Verified 09/15/25 11:21 Review of Systems 2 Constitutional: Constitutional: Reports as per HPI Eyes: Eyes: Reports as per HPI ENT: Reports as per HPI Cardiovascular: Cardiovascular: Reports as per HPI Respiratory: Respiratory: Reports as per HPI Gastrointestinal: Gastrointestinal: Reports as per HPI Genitourinary: Genitourinary: Reports as per HPI Musculoskeletal: Musculoskeletal: Reports as per HPI Integumentary/Breasts: Skin/Breast: Reports as per HPI Neurologic: Reports as per HPI Psychiatric: Psychiatric: Reports as per HPI Endocrine: Endocrine: Reports as per HPI Hematologic/Lymphatic: Hematologic/Lymphatic: Reports as per HPI Allergic/Immunologic: Allergic/Immunologic: Reports as per HPI [facility] Past Medical History Attestation statement: The following information was validated with the patient. Source: old records reviewed and nursing notes reviewed Medical History Transaminitis Chronic idiopathic constipation Pseudotumor cerebri White matter disease, unspecified Headache disorder Sessile serrated polyp of colon Family history of systemic lupus erythematosus Polyarthralgia Depression Essential hypertension Impaired fasting glucose Mid back pain on left side Insomnia Vitamin D deficiency Gastric ulcer Esophagitis Heartburn Lumbago with sciatica, left side Blurred vision, bilateral Obesity (BMI 30-39.9) Surgical History Hx of esophagogastroduodenoscopy Hx of colonoscopy Family History Family History Father History of renal dialysis Chronic kidney disease (CKD) Substance use disorder Mental health disorder Mother Substance use disorder Mental health disorder Brother Mental health disorder Brother Mental health disorder Brother Mental health disorder Brother Mental health disorder Sister Mental health disorder Sister Mental health disorder Paternal Aunt Crohn's disease Social History Social History Household Members: Family and Other Household Members Other:: Aunt Housing: Apartment Are you a primary residential care officer to a significant other at home: No Do you presently have visiting nurse or other home services: No Alcohol intake: never Patient Tobacco Use Status: Never used Tobacco e-Cigarette/Vaping Use: Former Use Second Hand Smoke Exposure: Yes Advance Directives Date on File: 08/26/22 service: No Current occupational status: employed Current occupation: [employer] Sexual orientation: Lesbian/Lomas/Homosexual Cognitive needs: No Hearing needs: No Vision needs: No Physical Exam 2 Vital Signs: Vital Signs: Last Vital Signs Temp 98 F 09/15/25 13:49 Pulse 92 09/15/25 13:49 Resp 16 09/15/25 13:49 BP 162/107 H 09/15/25 13:49 Pulse Ox 100 09/15/25 13:49 O2 Del Method Room Air 09/15/25 13:49 BMI result Body Mass Index 42.5 Const: General: cooperative, no acute distress, alert and awake Nutritional Appearance: well nourished Orientation/consciousness: patient oriented x3 HEENT: Head: Yes normal to inspection and Yes atraumatic Ears: hearing grossly normal bilaterally and external ears normal General nose exam: Normal external nose present, no nasal discharge noted and no epistaxis Face and sinus: Yes normal facial exam, No abrasion and No laceration Mouth: Normal oral and palatal mucosa present, no drooling and no muffled voice Eyes: General: appearance normal, both eyes and all related structures P eriorbital: periorbital findings normal Eyelids: Yes eyelids normal C onjunctivae: conjunctivae normal Pupils: Equal, round and reactive pupils present EOM: EOMs intact bilaterally Neck: Neck: Yes normal visual inspection and Yes full ROM Resp: Effort & Inspection: normal respiratory effort and able to speak in complete sentences Neuro: General: patient oriented x3, moves all extremities and CN's II-XI intact bilaterally Cranial nerves: Yes Equal, round and reactive pupils present Cognition (Neuro): normal cognition Extrem: General: Yes normal to inspection, Yes full ROM and Yes capillary refill normal Psych: Appearance: grossly normal Mental Status: mental status grossly normal Affect: normal affect Attitude: cooperative Thought process: N ormal thought process present Thought content: Normal thought content present Insight: Good insight present (Psych) Course Course Course Narrative: This is an RME: Additional HPI, ROS, PE not included below will be deferred to primary provider. RME assessment and note performed by: Mary Schulz PA-C This is a [id number] assigned at , with a PMHx of seizures no longer on Keppra - on another medication unsure of name, fibromylagia, HTN not on medication, who presents to the ER with concerns of chest pain x 2 hours. Reports that they were at work and was sitting down and felt pressure in their chest. Reports that pain is constant. Plan: Labs, EKG, cxr Medications Administered Discontinued Medications Generic Name Dose Route Start Last Admin Trade Name Yanira PRN Reason Stop Dose Admin Ketorolac Tromethamine 15 mg 09/15/25 13:06 09/15/25 13:28 Ketorolac Tromethamine 15 Mg/Ml Vial IM 09/15/25 13:07 15 mg ONCE ONE Administration Medical Decision Making Medical Decision Making [facility] Narrative: Patient is a 29 year old assigned female at , now male, with a history of HTN, fibromyalgia, depression, and transaminitis presenting to the emergency department today with left sided chest pressure. Patient's physical exam was as noted in the physical exam portion of this note. Patient's blood work was unremarkable and consistent with the patient's baseline. Patient's EKG showed no obvious evidence of arrhythmia, ischemia, or infarct. Patient's chest x-ray showed no acute process. Patient's clinical presentation is most consistent with pleurisy vs. chest wall pain vs. costochondritis. I explained my physical exam findings as well as all test results to the patient. I answered all questions asked by the patient. I stressed the importance of the patient taking his medication as directed (either prescribed or as the over the counter packaging recommends). I stressed the importance of the patient following up with his primary care provider. I stressed the importance of the patient returning to the emergency department immediately if his symptoms were to worsen or if he were to develop any dizziness, shortness of breath, difficulty breathing, chest pain, blurry vision, loss of vision, nausea, vomiting, abdominal pain, fever, chills, back pain, or any other complaints. Patient verbalized agreement and understanding with this treatment plan and discharge. Differential Diagnosis Differential Diagnoses: The differential diagnosis associated with the presentation includes NSTEMI STEMI Chest wall pain Atypical chest pain Pleurisy GERD Costochondritis Admission/Observation Consideration of admission/observation: Escalation of care including admission/observation considered Patient would have been admitted to the hospital had his work up had any findings where hospital admission was appropriate and his clinical presentation warranted hospital admission. Lab Data [facility] Lab Attestation statement: I reviewed the patient's lab results. My interpretation of these results are in the [facility] Rationale portion of this note. 09/15/25 11:31 09/15/25 11:31 Labs: Lab Results 09/15/25 Range/Units 11:31 WBC 7.2 (4.8-10.8) X10*3/uL RBC 4.80 (4.20-5.50) X10*6/uL Hgb 12.7 (12.0-16.0) g/dl Hct 38.1 (37.0-47.0) % MCV 79.4 L (80.0-98.0) fL MCH 26.5 L (27.0-33.0) pg MCHC 33.3 (31.0-35.0) g/dl RDW 13.9 (11.0-16.0) % Plt Count 340 (160-400) X10*3/uL MPV 9.0 L (9.4-12.3) fL Immature Gran % (Auto) 0.4 (0.0-0.4) % Neut % (Auto) 61.6 (45-73) % Lymph % (Auto) 32.4 (20-40) % Blaine % (Auto) 4.0 (2-11) % Eos % (Auto) 1.0 (0-4) % Baso % (Auto) 0.6 (0-2) % Lymph # (Auto) 2.3 (1.2-4.9) X10*3/uL [place]aine # (Auto) 0.3 (0.1-1.2) X10*3/uL Eos # (Auto) 0.1 (0.0-0.4) X10*3/uL Baso # (Auto) 0.0 (0.0-0.2) X10*3/uL Abs Immat Gran (auto) 0.03 (0.00-0.03) X10*3/uL Absolute Neuts (auto) 4.5 (2.0-8.3) x10*3/uL Absolute Nucleated RBC 0.000 (0.0-0.012) X10*3/uL Nucleated RBC % (auto) 0.0 (0.0-0.2) /100WBC PT 12.7 (11.2-13.5) SEC INR 1.0 (0.9-1.1) Sodium 138 (135-145) mmol/L Potassium 4.1 (3.3-5.1) mmol/L Chloride 108 (96-108) mmol/L Carbon Dioxide 23 (22-29) mmol/L Anion Gap 11 L (12-20) BUN 12 (9-16) mg/dL Creatinine 0.74 (0.5-1.4) mg/dL Estim Creat Clear Calc 134.0 Estimated GFR > 60 Random Glucose 132 H (60-115) mg/dL Calcium 9.1 (8.4-10.2) mg/dL Magnesium 2.1 (1.6-2.6) mg/dL Total Bilirubin 0.3 (0.0-1.0) mg/dL Direct Bilirubin 0.1 (0.0-0.5) mg/dL AST 36 H (5-31) U/L ALT 34 H (0-31) U/L Alkaline Phosphatase 80 (39-117) U/L Troponin I High Sens < 2.7 (<3.5-17.0) ng/L Total Protein 7.3 (6.5-8.0) g/dL Albumin 4.4 (3.5-5.0) g/dL Beta HCG, Quant < 2 mIU/mL Influenza Type A (PCR) NEGATIVE (Negative) Influenza Type B (PCR) NEGATIVE (Negative) RSV RNA Qual (PCR) NEGATIVE (Negative) SARS-CoV-2 RNA (RT-PCR) NEGATIVE (Negative) Independent Interpretation I performed an independent interpretation of an: EKG and Plain X-Ray Interpretation: My interpretation is in agreement with the radiologist's impression of this imaging study as written below. Reason for Exam: CP EXAMINATION: XR CHEST 2 VIEWS HISTORY: CP COMPARISON: Comparison is made with the prior examination dated 04/20/2024. FINDINGS: PA and lateral views of the chest are submitted. The lungs are expanded and clear. There is no pleural effusion, pneumothorax, or pulmonary vascular congestion. The heart is normal in size. The bones are intact. XR/XR chest 2V IMPRESSION: No acute cardiopulmonary abnormality. Electronically signed by: Darin Nobles MD 09/15/2025 11:50 AM EST Dictated By: Darin Nobles MD Signed By: Electronically signed by Darin Nobles MD 09/15/25 1150 I independently interpreted this EKG and am in agreement with the below findings: Vent. Rate : 86 BPM Atrial Rate: 86 BPM P-R Int: 142 ms QRS Dur: 88 ms QT Int: 378 ms P-R-T Axes: 28 12 29 degrees QTcB Int: 452 ms Normal sinus rhythm When compared with ECG of 18-Dec-2023 13:39, No significant change was found Electronically Signed By: RYAN PARSONS MD Dictated By: Ryan Parsons MD Signed By: Electronically signed by Ryan Parsons MD 09/15/25 1127 Radiology Impression Discussion of test interpretation with radiology: I have reviewed the radiologist's reading. Discharge Plan Discharge Clinical Impression: Pleurisy, Chest wall pain Patient Disposition: Home, Self-Care Instructions: Pleurisy (DC), Chest Wall Pain (ED) Additional Instructions: Your work up today showed no EMERGENT cause for your symptoms with reassuring lab work, EKG, and imaging. IF you are prescribed home medications and/or you are taking over the counter medications at home - it is very important you continue to do so as prescribed / directed unless told otherwise by a healthcare provider. Follow up with your primary care provider. Do your best to stay well hydrated and rest. Return to the emergency department immediately if your symptoms worsen or if you develop any numbness, tingling, dizziness, shortness of breath, difficulty breathing, chest pain, blurry vision, loss of vision, nausea, vomiting, abdominal pain, fever, chills, back pain, or any other complaints. L Please see the information below about our Patient Portal. If you are not yet enrolled in the [facility] Patient Portal, you will receive an enrollment email invitation following your visit to any [facility] setting. You may also self-enroll in the Patient Portal by visiting our website: [email or web address] The following information is required to access the Patient Portal: - Your [facility] Medical Record Number - Your personal home email address (must match what is in your electronic medical record, Registration staff can assist with this) - Name - Date of Capabilities of the Patient Portal: - Message some providers - View upcoming appointments - Access your health summary, medical history, and visit history - View current conditions and allergies - View procedure and lab results - View your medications, including guidelines, side effects, and precautions - Complete pre-appointment questionnaires requested by your provider - Ready summary reports of your office visits and procedures To access the Patient Portal Mobile Vito, follow these directions: - Search [employer] in the Vito Store or [employer] Store - Download the Vito - Search for [facility] - Enter your login/password Prescriptions: No Action gabapentin 300 mg capsule 300 mg PO BEDTIME 30 Days Qty: 30 2RF mirtazapine 15 mg tablet 15 mg PO BEDTIME polyethylene glycol 3350 [Miralax] 17 gram powder in packet 17 g PO DAILY Qty: 14 0RF sertraline 100 mg tablet 100 mg PO DAILY albuterol sulfate 90 mcg/actuation HFA aerosol inhaler 2 puff inhalation Q6H PRN (Reason: shortness of breath or wheezing) Qty: 6.7 0RF lamotrigine 25 mg tablet 25 mg PO .COMPLEX 90 Days Qty: 90 0RF Rx Instructions: 25 mg orally 1 tablet at bedtime x1 week then 1 tablet twice a day; Emgality Pen 120 mg/mL pen injector 120 mg subcut QMONTH 30 Days Qty: 2 0RF Rx Instructions: loading dose Emgality Pen 120 mg/mL pen injector 120 mg subcut QMONTH 30 Days Qty: 1 5RF hydroxyzine HCl 10 mg tablet 10 mg PO DAILY PRN methylphenidate HCl 36 mg tablet extended release 24hr 36 mg PO QAM bisacodyl [Dulcolax (bisacodyl)] 5 mg tablet,delayed release (DR/EC) 10 mg PO BEDTIME Qty: 180 4RF amitriptyline 50 mg tablet 50 mg PO BEDTIME 90 Days Qty: 90 1RF verapamil 240 mg capsule,ext rel. pellets 24 hr 240 mg PO DAILY 90 Days Qty: 90 1RF naproxen 500 mg tablet 500 mg PO BID PRN (Reason: pain) 30 Days Qty: 30 1RF ondansetron 4 mg tablet,disintegrating 4 mg PO DAILY PRN (Reason: nausea and vomiting) 30 Days Qty: 14 5RF cyclobenzaprine 10 mg tablet 10 mg PO BID 30 Days Qty: 60 2RF esomeprazole magnesium [Nexium] 40 mg capsule,delayed release(DR/EC) 40 mg PO DAILY Qty: 90 3RF Referrals: Gauri Samano MD [Primary Care Provider, Internal Medicine] Stand Alone Forms: Work/School Release Interventions: ED Discharge Assessment Last Done: 09/15/25 13:49 Discharge Date/Time: 09/15/25 13:49 Print Language: Scottish
[2025-09-15 11:35] LABS: MANUAL DIFF FLAG NO
[2025-09-15 11:37] LABS: Hematocrit 38.1 % (37.0-47.0); Hemoglobin 12.7 g/dl (12.0-16.0); Imm Gran Abs Auto 0.03 X10*3/uL (0.00-0.03); Imm Gran Pct Auto 0.4 % (0.0-0.4); Lymphocytes Absolute Auto 2.3 X10*3/uL (1.2-4.9); Mean Corpuscular HGB Conc 33.3 g/dl (31.0-35.0); Mean Corpuscular Hemoglobin 26.5 pg (27.0-33.0); Mean Corpuscular Volume 79.4 fL (80.0-98.0); NRBC Abs Auto 0.000 X10*3/uL (0.0-0.012); NRBC Pct Auto 0.0 /100WBC (0.0-0.2); Platelet Count 340 X10*3/uL (160-400); Red Blood Count 4.80 X10*6/uL (4.20-5.50); White Blood Count 7.2 X10*3/uL (4.8-10.8)
[2025-09-15 11:49] LABS: INTERNATIONAL NORM RATIO 1.0 (0.9-1.1); Prothrombin Time 12.7 SEC (11.2-13.5)
[2025-09-15 12:00] LABS: Troponin-I High Sensitivity < 2.7 ng/L (<3.5-17.0)
[2025-09-15 12:03] LABS: Alanine Aminotransferase 34 U/L (0-31); Albumin Level 4.4 g/dL (3.5-5.0); Alkaline Phosphatase 80 U/L (39-117); Anion Gap 11 (12-20); Aspartate Amino Transferase 36 U/L (5-31); Blood Urea Nitrogen 12 mg/dL (9-16); Calcium 9.1 mg/dL (8.4-10.2); Carbon Dioxide 23 mmol/L (22-29); Chloride 108 mmol/L (96-108); Creatinine Clr Calc Pharmacy 134.0; Estimated Glomerular Filt Rate > 60; Magnesium 2.1 mg/dL (1.6-2.6); Potassium 4.1 mmol/L (3.3-5.1); Sodium 138 mmol/L (135-145); Total Protein 7.3 g/dL (6.5-8.0)
[2025-09-15 12:13] LABS: Resp Syncy Virus RNA Qual PCR NEGATIVE (Negative); SARS COV2 PCR INHOUSE NEGATIVE (Negative)
[2025-09-15 13:49] VITALS: BP 162/107; PULSE 92; RESP 16; TEMP 36.6; O2SAT 100
== END 2025-09-15 13:49 | disposition home or self-care (01) ==
PROVIDERS: Physician Assistant Medical; Emergency Provider Emergency Medicine; PCP Internal Medicine
DX: R07.89 Other chest pain (principal); R09.1 Pleurisy; Z03.818 Encounter for observation for suspected exposure to other biological agents ruled out; Z79.899 Other long term (current) drug therapy
CPT/HCPCS: 71046; 80048; 80076; 83735; 84484; 84702; 85025; 85610; 87637; 93005; 96372; 99283; 99284; J1885

== ENCOUNTER → 2025-09-15 10:51 | Outpatient (BNV) | payer OTHER, SELFPAY | PROVIDERS: PCP Internal Medicine; Visit Provider Internal Medicine Cardiovascular Disease | DX: R94.31 Abnormal electrocardiogram [ECG] [EKG] (principal); R07.9 Chest pain, unspecified | CPT/HCPCS: 93010 ==

== ENCOUNTER → 2025-09-15 11:23 | Outpatient (BNV) | payer OTHER, SELFPAY | PROVIDERS: PCP Internal Medicine; Visit Provider Radiology Diagnostic Radiology | DX: R07.9 Chest pain, unspecified (principal) | CPT/HCPCS: 71046 ==

== ENCOUNTER 2025-09-22 09:00 | Outpatient (AMB) | payer OTHER, SELFPAY ==
--- NOTE | 2025-09-22 09:08 | A.OFFVIS_ITS ---
Vital Signs 09/22/25 09:09 Height 5 ft 3 in Weight 255 lb 4.725 oz BMI 45.2 BP 124/72 Blood Pressure Location Rt brachial Position Sitting Pulse 97 Pulse Source Monitor Intake Visit Reasons: 4m follow up Grain Operator Required: No Allergies [place] And Derivatives (CITRUS) Allergy (Intermediate, Verified 09/22/25 09:11) hives shellfish derived (SHELLFISH DERIVED) Allergy (Intermediate, Verified 09/22/25 09:11) HIVES SWOLLEN FACE seafood Adverse Reaction (Severe, Verified 09/22/25 09:11) Angioedema Medication List - Last Reconciled 09/22/25 by TORI Rodgers albuterol sulfate 90 mcg/actuation 2 puffs inhalation Q6H PRN amitriptyline 50 mg PO BEDTIME 90 days bisacodyl (Dulcolax (bisacodyl)) 10 mg (2 x 5 mg) PO BEDTIME cyclobenzaprine 10 mg PO ONCE esomeprazole magnesium (Nexium) 40 mg PO DAILY gabapentin 300 mg PO BEDTIME 30 days hydroxyzine HCl 10 mg PO DAILY PRN lamotrigine 25 mg orally 1 tablet at bedtime x1 week then 1 tablet twice a day; 90 days methylphenidate HCl ER 36 mg PO QAM mirtazapine 15 mg PO BEDTIME naproxen 500 mg PO BID PRN 30 days ondansetron 4 mg PO DAILY PRN 30 days polyethylene glycol 3350 (Miralax) 17 grams PO DAILY sertraline 100 mg PO DAILY verapamil ER 240 mg PO DAILY 90 days HPI HPI 4m follow up: Details: Jw is a 29 yr who identifies as being male, with PMH of morbid obesity, impaired fasting glucose, obesity, fibromyalgia, chronic headaches, HTN who presents for follow-up after recent ER visit for chest discomfort and no acute findings identified. Today he reports that on the day of the ER visit he was experiencing a sudden onset discomfort in his chest that felt like a weight. The symptom did persist following the ER visit and has remained there daily. It is currently at a low level but he can still feel it today. There is some mild tenderness to the palpation of his upper anterior chest. No shortness of breath, palpitations, presyncope, syncope, PND, orthopnea or edema. Activity limited by fibromyalgia and headaches. 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 Taking all meds as directed. . PFSH Medical History Transaminitis Chronic idiopathic constipation Pseudotumor cerebri White matter disease, unspecified Headache disorder Sessile serrated polyp of colon Family history of systemic lupus erythematosus Polyarthralgia Depression Essential hypertension Impaired fasting glucose Mid back pain on left side Insomnia Vitamin D deficiency Gastric ulcer Esophagitis Heartburn Lumbago with sciatica, left side Blurred vision, bilateral Obesity (BMI 30-39.9) Surgical History Hx of esophagogastroduodenoscopy Hx of colonoscopy Family History Father History of renal dialysis Chronic kidney disease (CKD) Substance use disorder Mental health disorder Mother Substance use disorder Mental health disorder Brother Mental health disorder Brother Mental health disorder Brother Mental health disorder Brother Mental health disorder Sister Mental health disorder Sister Mental health disorder Paternal Aunt Crohn's disease Social History Household Members: Family and Other Household Members Other:: Aunt Housing: Apartment Are you a primary director of critical care to a significant other at home: No Do you presently have visiting nurse or other home services: No Alcohol intake: never Patient Tobacco Use Status: Never used Tobacco e-Cigarette/Vaping Use: Former Use Second Hand Smoke Exposure: Yes Advance Directives Date on File: 08/26/22 service: No Current occupational status: employed Current occupation: [employer] Sexual orientation: Lesbian/Lomas/Homosexual Cognitive needs: No Hearing needs: No Vision needs: No Female Reproductive History Menstrual Age of Menarche: 13 Review of Systems Const All systems reviewed & are unremarkable except as noted in HPI and below ENT Denies dizziness Card Reports chest pain, Denies chest pain at rest, Denies chest pain with activity, Denies rapid heart rate, Denies pedal edema, Denies edema, Denies leg edema, Denies lightheadedness, Denies palpitations, Denies dyspnea, Denies dyspnea on exertion and Denies orthopnea Resp Denies cough, Denies dyspnea and Denies dyspnea on exertion GI Denies hematochezia and Denies change in stool character Musc Denies abnormal gait, Denies limited range of motion, Denies muscle cramps, Denies muscle weakness, Denies numbness, Denies radiating pain into limb, Denies stiffness and Denies tingling Neuro Denies abnormal gait, Denies dizziness, Denies numbness and Denies tingling Endo Denies palpitations Physical Exam Vital Signs: Last Vital Signs Pulse 97 09/22/25 09:09 BP 124/72 09/22/25 09:09 BMI result Body Mass Index 45.2 Const Other: wearing dark glasses General: cooperative, healthy appearing and no acute distress Orientation/consciousness: patient oriented x3 Neck Neck: Yes normal visual inspection Resp Effort & Inspection: normal respiratory effort Auscultation: clear to auscultation bilaterally, no rales, no rhonchi and no wheezes Cardio Rate: regular rate Rhythm: regular rhythm Heart sounds: S1 normal heart sound present, S2 normal heart sound present, no gallops, no murmurs and no rubs Neuro General: patient oriented x3 Extrem General: Yes normal to inspection and No no pedal edema Psych Appearance: grossly normal Mental Status: mental status grossly normal Speech and movement: Normal speech and movement present Office Procedures EKG Details: Today, read by me, normal sinus rhythm, nonspecific T-wave abnormality unchanged from prior, QTC 462 milliseconds, rate 97. [id number], Complete Assessment & Plan Assessment & Plan (1) Chest wall discomfort: Code(s): R07.89 - Other chest pain Category: Medical Plan: Atypical chest discomfort with ER evaluation showing no acute findings. Discomfort is reproducible to palpation today and likely chest wall in nature. Discussed use of ibuprofen, heat/cold to relieve symptoms. No further testing needed at this time. (2) Essential hypertension: Code(s): I10 - Essential (primary) hypertension Category: Medical Plan: Blood pressure goal less than 130/80. History of uncontrolled hypertension in the past while on hormone therapy which was then stopped. Prior testing included echocardiogram done on 10/16/2021 shows normal study, EF 60-65%. Renal ultrasound done on 10/16/2021 was unremarkable, there is no direct comment regarding renal artery stenosis. A home sleep study done 10/01/2022 was normal. Blood pressure today 124/72. At this time no med changes will be made. Con tinue low-salt diet, weight loss, activity as tolerated. Periodic home blood pressures. Recommend he stay off hormonal therapy which may have added to the level of uncontrolled hypertension previously seen. Cardiology follow-up in 1 year, sooner if needed. (3) Abnormal EKG: Code(s): R94.31 - Abnormal electrocardiogram [ECG] [EKG] Category: Medical Plan: EKG reviewed and show chronic T-wave abnormality V3 through V6. Echo normal. Stress echocardiogram done 10/17/2023 with exercise 7 minutes, no echo evidence of ischemia. EKG today unchanged from prior. (4) Morbid obesity: Code(s): E66.01 - Morbid (severe) obesity due to excess calories Category: Medical Plan: As above Plan I discussed with the patient that his recent ER visit and the workup performed, including a chest x-ray and blood tests, effectively ruled out an acute, dangero us cause for her chest discomfort. I provided reassurance that his young age and normal cardiac testing from the prior year, including a stress echo and echocardiogram, make a significant underlying heart condition very unlikely. We reviewed that while diagnoses like costochondritis or pericarditis are possibilities for chest pain, his specific symptoms were not classic for either. I explained that her EKG today showed some subtle, but stable, abnormalities that are not a cause for concern. I advised that since his symptoms have largely improved, we do not need to pursue further testing. I recommended a plan focused on symptom management, suggesting he could use ibuprofen, heating pads, or ice packs for any lingering discomfort. We agreed to a routine follow-up in the clinic in one year. Medications: Changed From cyclobenzaprine 10 mg PO BID 30 days 60 tabs 2RF To cyclobenzaprine 10 mg PO ONCE Patient Instructions: - Your recent tests in the emergency room and in our office today were reassuring and did not show a dangerous cause for your chest discomfort. - To help with the discomfort that is still there, you can try taking [id number] ibuprofen as needed. - You can also use heating pads or ice packs on the area, depending on what you prefer. - Please schedule a follow-up appointment to be seen here again in one year. Patient was informed and verbally consented to the use of an ambient scribe for clinic note documentation during this visit. Visit time spent on chart review, interview, assessment, orders, documentation. Coding Level of Care Code Est Pt Level 4 (23402) Add On Problem Visit Only Diagnoses Chest wall discomfort R07.89 Essential hypertension I10 Abnormal EKG R94.31 Morbid obesity E66.01 CPT Codes EKG - CPT: 46547-[id number], Complete ([id number]) Time Spent (min) 28
[2025-09-22 09:09] VITALS: BP 124/72; PULSE 97; BMI 45.2
== END 2025-09-22 09:38 | disposition home or self-care (01) ==
LOC: HO.HCS 09:01
PROVIDERS: PCP Internal Medicine; Visit Provider Nurse Practitioner Family
DX: R07.89 Other chest pain (principal); I10 Essential (primary) hypertension; R94.31 Abnormal electrocardiogram [ECG] [EKG]; E66.01 Morbid (severe) obesity due to excess calories
CPT/HCPCS: 93010; 99214

== ENCOUNTER → 2025-09-22 09:00 | Outpatient (BNVA) | payer OTHER, SELFPAY | PROVIDERS: PCP Internal Medicine; Visit Provider Nurse Practitioner Family | DX: R07.89 Other chest pain (principal); I10 Essential (primary) hypertension; R94.31 Abnormal electrocardiogram [ECG] [EKG]; E66.01 Morbid (severe) obesity due to excess calories; Z68.42 Body mass index [BMI] 45.0-49.9, adult | CPT/HCPCS: 93005; 99212 ==